=== PATIENT | male | born 1940 | race Caucasian/White ===

== ENCOUNTER 2020-03-10 01:29 | Outpatient (CLI) | payer OTHER, SELFPAY ==
[2020-03-10 18:12] LABS: SARS-CoV-2 RNA PCR Negative
== END 2020-03-10 01:30 | disposition home or self-care (01) ==
LOC: ANHCOVIDDT 01:31
PROVIDERS: PCP Internal Medicine; Visit Provider Internal Medicine Critical Care Medicine
DX: Z01.812 Encounter for preprocedural laboratory examination (principal); Z20.828 Contact with and (suspected) exposure to other viral communicable diseases
CPT/HCPCS: 87635; C9803; U0003

== ENCOUNTER 2020-03-12 08:14 | Outpatient (CLI) | payer OTHER, SELFPAY ==
--- NOTE | 2020-03-26 20:50 | SLEEP_ITS ---
CPAP TITRATION DATE OF STUDY: 03/12/2020 ORDERING PHYSICIAN: Beto Car MD. REASON FOR THIS STUDY: History of obstructive sleep apnea on CPAP, increased hemoglobin. HISTORY: This 79-year-old man is 72 inches tall, weighing 217 pounds with a body mass index of 29.4. Neck circumference is 17 inches. On February 23, 2018, he had a CPAP retitration. He has been using CPAP for many years without problems, started in 2008. In 2018, his hemoglobin was elevated. Dr. Carreon was concerned about polycythemia and wanted to assure that the CPAP was adequately treating his sleep apnea. During the titration, the patient was titrated from 7-9 cm of water pressure with the presence of central and obstructive apneas and hypopneas, arousals and desaturations. The sleep efficiency was very low 14%, a prolonged sleep latency of 60 minutes occurred, and there was absence of REM. On a prior study September 24, 2008, his AHI was 5.9 with mild desaturation, moderate snoring, and severe myoclonus, and optimal pressure was 7 cm. The patient is retired, and has had phlebotomy twice in the past due to elevated blood counts. Since starting CPAP years ago, he has not had any problem with snoring. He occasionally awakens at night with heartburn, belching, or coughing. He does not awaken from sleep feeling short of breath and does not snore since starting CPAP. He frequently snores loudly enough that others complain, but that was before CPAP was started. He rarely has trouble sleeping with a cold. He does not wake up gasping for breath at night, does not have breathing problems at night observed by others, does not sweat excessively at night, or notices heart pounding or beating irregularly at night. He does not fall asleep during the day, fall asleep involuntarily, or while driving. He does not have loss of muscle tone with strong emotion and does not have daytime difficulties due to excessive sleepiness. He does not feel paralyzed on waking or falling asleep. He does not have vivid dreamlike scenes upon awakening or falling asleep. He is never afraid to go to sleep. He occasionally has nightmares. He rarely remembers his dreams. He occasionally has racing thoughts. He rarely feels sad or depressed. He occasionally feels anxiety. He occasionally has muscular tension. He does not notice parts of his body jerking and he does not kick at night. He rarely has crawly achy feelings in his legs, but he does have some leg cramps at night. He occasionally has leg pain during the night. He does not have morning jaw pain and does not grind his teeth during sleep. He is not bothered by pain during the day and is not awakened by pain at night. He occasionally wakes up feeling stiff in the morning with sore achy muscles and pain in the neck and the spine. He has fatigue, memory problems, concentration difficulties, and constipation. Normal bedtime is 10:00 p.m., falling asleep within 1 hour, typically waking once at night for 15 minutes to go urinate. He wakes in the morning around 9:00 a.m. He estimates 8 hours of sleep during the night. He lives at home with his cat. His has Alzheimer's and is in a memory care unit. He does not take naps. A short nap is not refreshing. Most of the time, he feels good in the morning. He feels better in the afternoon than other times of day. MEDICAL COMORBIDITIES: 1. Obstructive sleep apnea. 2. Constipation. 3. Hypertension. 4. Polycythemia without a diagnosis of polycythemia vera. 5. Seasonal allergies. MEDICATIONS: 1. Tamsulosin 0.4 mg daily. 2. Losartan 50 mg a day. 3. Spironolactone 25 mg a day. 4. Atenolol 25 mg a day. HABITS: Remote tobacco use, 60 years ago. No caffeine or alcohol. DESCRIPTION OF
== END 2020-03-12 08:15 | disposition home or self-care (01) ==
PROVIDERS: PCP Internal Medicine; Visit Provider Internal Medicine Critical Care Medicine
DX: G47.33 Obstructive sleep apnea (adult) (pediatric) (principal)
CPT/HCPCS: 95811

== ENCOUNTER 2020-12-04 15:27 | Outpatient (CLI) | payer MEDICARE, SELFPAY ==
--- NOTE | ~2020-12-04 | XR_ITS ---
EXAMINATION: XR lumbar spine 2-3V EXAM DATE: 12/04/2020 16:01 INDICATION: M54.9 - Dorsalgia, feels the weakness throughout lower back and sometimes going into thor acic spine. TECHNIQUE: Lumber spine frontal, lateral, lateral L5-S1 projections for interpretation. There is no prior study for comparison. FINDINGS: Moderate disc disease L5-S1, mild to moderate L3-4 and L4-5. There is moderate to severe f acet arthropathy L4-5 and L5-S1. Moderate sized bridging endplate osteophytes L3-4 and L4-5. The vert ebral bodies are aligned in the AP dimension. There are no acute fractures identified. Paraspinal sof t tissue is unremarkable. Mild lumbar scoliosis. Sacrum, sacroiliac joints, sacral arcuate lines are intact. IMPRESSION: Lower lumbar predominant spondylosis. Reviewed, dictated and finalized at location A.
== END 2020-12-04 15:28 | disposition home or self-care (01) ==
LOC: ANHIMG 15:29
PROVIDERS: PCP Internal Medicine; Visit Provider Internal Medicine
DX: M47.817 Spondylosis without myelopathy or radiculopathy, lumbosacral region (principal); M41.9 Scoliosis, unspecified
CPT/HCPCS: 72100

== ENCOUNTER 2021-02-10 10:14 | Outpatient (CLI) | payer MEDICARE, SELFPAY ==
--- NOTE | ~2021-02-10 | MR_ITS ---
EXAMINATION: MR lumbar spine wo con DATE: 02/10/2021 11:09 INDICATION: Radiculopathy, lumbar region. TECHNIQUE: Magnetic resonance imaging (MRI) of the lumbar spine was performed without intravenous con trast. Sequences included sagittal T2-weighted FSE, sagittal T2-weighted FS FSE, sagittal T1-weighted FSE, and axial T2-weighted FSE. COMPARISON: Lumbar spine radiographs 12/04/2020 FINDINGS: There is 10 degrees levoscoliosis of lumbar spine. There is a chronic left L5 pars defects. There is mild chronic anterior wedging of T11-L1 vertebral bodies. There is moderately decreased dis c height at L3-L4 and L4-L5 and severely decreased disc height at L5-S1 with endplate remodeling. The distal spinal cord signal intensity is normal. The conus medullaris is at L1. The following disc lev els are specifically discussed: L1-L2: The disc is bulging and has an annular fissure. There is mild right and moderate left facet evelyn int osteoarthritis. There is mild bilateral neural foraminal stenosis. There is mild central canal st enosis. L2-L3: The disc is bulging. There is severe bilateral facet joint osteoarthritis. There is mild bilat eral neural foraminal stenosis. There is mild central canal stenosis. L3-L4: The disc is bulging and has an annular fissure. There is moderate right and mild left facet evelyn int osteoarthritis. There is moderate bilateral neural foraminal stenosis. There is mild central laila l stenosis. L4-L5: The disc is bulging and has an annular fissure. There is severe bilateral facet joint osteoart hritis. There is moderate bilateral neural foraminal stenosis. There is mild central canal stenosis. There is severe stenosis of right lateral recess and mild stenosis of left lateral recess. L5-S1: The disc is bulging. There is severe bilateral facet joint osteoarthritis. There is mild bilat eral neural foraminal stenosis. There is mild central canal stenosis. IMPRESSION: 1. Severe lumbar spondylosis. 2. Chronic left L5 pars defect. Reviewed, dictated and finalized at location A.
== END 2021-02-10 10:15 | disposition home or self-care (01) ==
PROVIDERS: PCP Internal Medicine; Visit Provider Internal Medicine
DX: M54.16 Radiculopathy, lumbar region (principal); M54.9 Dorsalgia, unspecified; M47.816 Spondylosis without myelopathy or radiculopathy, lumbar region; M53.86 Other specified dorsopathies, lumbar region
CPT/HCPCS: 72148

== ENCOUNTER 2021-11-04 21:08 | Emergency (ER) | payer MEDICARE, SELFPAY ==
[2021-11-04 21:23] VITALS: BP 154/79; PULSE 54; RESP 18; TEMP 36.4; O2SAT 98
== END 2021-11-05 01:10 | disposition left against medical advice (07) ==
PROVIDERS: PCP Internal Medicine
DX: I10 Essential (primary) hypertension (principal)
CPT/HCPCS: 99199

== ENCOUNTER 2021-11-25 10:05 | Observation (INO) | payer MEDICARE, SELFPAY ==
[2021-11-25] VITALS (9 sets, daily range): BP systolic 114–151; BP diastolic 63–77; PULSE 62–76; RESP 16–20; TEMP 36.2–37; O2SAT 96–99; BMI 26.9
--- NOTE | ~2021-11-25 | XR_ITS ---
EXAMINATION: XR abdomen/kub 1V INDICATION: Back and abdominal pain TECHNIQUE: Supine views of the abdomen were obtained on 4 radiographs. COMPARISON: None FINDINGS: There is a moderately dilated loop of large bowel in the right mid abdomen. Gas is seen to the level of the rectum. The visualized lung bases are clear. There is mild osteoarthritis of the hip s. IMPRESSION: 1. Moderately dilated segment of large bowel in the right mid abdomen unclear etiology. Consider foll ow-up CT of the abdomen and pelvis. Reviewed, dictated and finalized at location A. IMPRESSION: 1. Moderately dilated segment of large bowel in the right mid abdomen unclear e tiology. Consider follow-up CT of the abdomen and pelvis.
--- NOTE | ~2021-11-25 | US_ITS ---
EXAMINATION: US retroperitoneal duplex ltd DATE: 11/26/2021 10:18 INDICATION: Hypertension. TECHNIQUE: Multiple grayscale, color Doppler, and pulsed Doppler images of the kidneys and renal lisa iván were obtained. COMPARISON: None. FINDINGS: The aorta peak systolic velocity is 99 cm/s. The right renal artery peak systolic velocity is 177 cm/ s in the proximal segment, 101 cm/s in the mid segment, and 59 cm/s in the distal segment. The left r enal artery peak systolic velocity is 135 cm/s in the proximal segment, 130 cm/s in the mid segment, and 77 cm/s in the distal segment. IMPRESSION: 1. No Doppler evidence of renal artery stenosis. Reviewed, dictated and finalized at location A.
--- NOTE | ~2021-11-25 | US_ITS ---
EXAMINATION: US renal BI DATE: 11/26/2021 10:18 INDICATION: Acute kidney injury. TECHNIQUE: Multiple ultrasound grayscale images of the kidneys were obtained. COMPARISON: Lumbar spine MRI 02/10/2021, ultrasound kidneys 05/02/2019 FINDINGS: The right kidney measures 11.5 x 6.4 x 5.4 cm. The left kidney measures 13.6 x 6.6 x 6.1 cm. There is cortical thinning of the kidneys. The kidneys demonstrate normal parenchymal echogenicity. There are cysts in the kidneys measuring up to 4.3 cm on the left. There are peripelvic cysts in left kidney. There is no hydronephrosis. The bladder is decompressed by a Ivan catheter. IMPRESSION: 1. Mild atrophy of the kidneys. No hydronephrosis. Reviewed, dictated and finalized at location A.
--- NOTE | ~2021-11-25 | CT_ITS ---
EXAMINATION: CT abdomen pelvis w con DATE: 11/26/2021 13:22 INDICATION: Dilated bowel TECHNIQUE: Computed tomography (CT) of the abdomen and pelvis was performed with 100 mL Omnipaque-300 intravenous contrast. Automated exposure control and iterative reconstruction technique were employe d. The dose-length product was 849.92 mGy-cm. COMPARISON: None FINDINGS: Minimal left pleural effusion. Mild dependent atelectasis in the bilateral lower lobes. Heart size is normal. No pericardial effusion. Small sliding-type hiatal hernia. A couple low-attenuation hepatic cysts the largest in the left hepatic lobe measuring 1.8 cm. Gallbladder, pancreas and bilateral adre nal glands are normal. Splenomegaly measuring 15 cm in maximal length. Moderate right renal atrophy w ith scattered severe cortical scarring likely sequela of chronic infection or infarction. Mild left r enal atrophy. Bilateral parenchymal and parapelvic cysts at both kidneys the largest a 4.8 cm exophyt ic cyst at the mid left kidney. There is moderate no dilated bowel to suggest obstruction. colonic di verticulosis with a sigmoid predominance. There is no adjacent inflammatory change to suggest divert iculitis. Prostatomegaly measuring 6.1 x 5.2 cm. Ivan catheter and some intraluminal gas within the decompressed bladder. Mild stranding in the fat surrounding the bladder which could be seen with cyst itis. No free intraperitoneal gas or fluid. No pathologically enlarged abdominal or pelvic lymphadeno anderson. Mild lumbar levocurvature with moderate to severe spondylosis. IMPRESSION: 1. Moderate diverticulosis. 2. Stranding in the fat surrounding the bladder which could be seen with cystitis. Correlate with uri nalysis. 3. Prostatomegaly. 4. Very small left pleural effusion. 5. Nonspecific splenomegaly. 6. Small sliding-type hiatal hernia. 7. Mild left and moderate right renal atrophy. Reviewed, dictated and finalized at location B. IMPRESSION: 1. Moderate diverticulosis. 2. Stranding in the fat surrounding the bladder which could be seen with cystit is. Correlate with urinalysis. 3. Prostatomegaly. 4. Very small left pleural effusion. 5. Nonspecific splenomegaly. 6. Small sliding-type hiatal hernia. 7. Mild left and moderate right renal atrophy.
--- NOTE | 2021-11-25 10:19 | ED.MALEGU ---
HPI - Male Genitourinary General Chief complaint: Urogenital-Male <Miguel Shaffer APRN - Last Filed: 11/25/21 14:07> Stated complaint: urinary retention x 1.5 days <Miguel Shaffer APRN - Last Filed: 11/25/21 14:07> Time Seen by Provider: 11/25/21 10:07 <Miguel Shaffer APRN - Last Filed: 11/25/21 14:07> History of Present Illness HPI Narrative: 81-year-old male presents the emergency room for evaluation of urinary retention for the last day and a half. Patient states 2 days ago he was complaining of dysuria, the alf staff stated that he had a urinary tract infection. Patient states that he was not started on antibiotics at that time, urinary retention. Patient is complaining of lower abdominal pain. Patient denies back pain denies fevers. <Miguel Shaffer APRN - Last Filed: 11/25/21 14:07> Related Data Home medications: Home Medications Medication Instructions Recorded Confirmed cholecalciferol (vitamin D3) 50 50 mcg PO DAILY 05/23/20 11/11/21 mcg (2,000 unit) capsule multivit-mins [id number] 200 mcg-vit tablet PO 05/23/20 11/11/21 K 1,000 mcg-coQ10 10 mg chew tablet zinc 50 mg tablet 50 mg PO DAILY 05/23/20 11/11/21 mecobalamin (vitamin B12) 1,000 1,000 mcg PO DAILY 12/24/20 11/11/21 mcg chewable tablet dietary supplement cap PO 03/10/21 11/11/21 triamcinolone acetonide 0.1 % 1 applic topical BID PRN 06/30/21 11/11/21 topical cream atenolol 25 mg tablet 25 mg PO DAILY 11/25/21 11/25/21 <Miguel Shaffer APRN - Last Filed: 11/25/21 14:07> Allergies/Adverse reactions: Allergies Allergy/AdvReac Type Severity Reaction Status Date / Time amlodipine Allergy Intermediate HIVES, Verified 11/25/21 13:57 ITCHING hydrochlorothiazide Allergy Unknown RASH & Verified 11/25/21 13:57 ITCHING valsartan Allergy Unknown Hives Verified 11/25/21 13:57 <Miguel Shaffer APRN - Last Filed: 11/25/21 14:07> Review of Systems Review of Systems: CONSTITUTIONAL: Denies fever, chills, or sweats. EYES: Denies visual changes, redness, or discharge. ENT: Denies rhinorrhea, congestion, sore throat, or otalgia. CARDIOVASCULAR: Denies chest pain, palpitations, or edema. RESPIRATORY: Denies cough or dyspnea. GASTROINTESTINAL: Denies abdominal pain, nausea, vomiting, or diarrhea. GENITOURINARY: Reports urinary retention SKIN: Denies rash or itching. MUSCULOSKELETAL: Denies back pain, joint pain, or myalgia. NEUROLOGIC: Denies headache, numbness, dizziness, or weakness. PSYCHIATRIC: Denies anxiety or depression. <Miguel Shaffer APRN - Last Filed: 11/25/21 14:07> PMFSH Past Medical History Medical History: Medical History Constipation Essential hypertension Neuropathy Obstructive sleep apnea <Miguel Shaffer APRN - Last Filed: 11/25/21 14:07> Family History Family History: Family History Father Hypertension, Onset Age: 88 <Miguel Shaffer APRN - Last Filed: 11/25/21 14:07> Social History Social History: Social History Smoking packs per day: 0.5 Smoking cigarettes per day: 10.0 Years smoked: 2 Smoking pack-years: 1.00 Smoking status: Former smoker Tobacco type: cigarettes Second hand tobacco smoke exposure: No Smoking end date: 06/06/1960 Alcohol intake: former Drinks per week: 1 Substance use: never Substance use type: does not use Gender identity (if verbalized by the patient): Male Spiritual care concerns: No <Miguel Shaffer APRN - Last Filed: 11/25/21 14:07> Exam Narrative: GENERAL: Well-appearing, well-nourished, and in no acute distress. HEAD: Normocephalic, atraumatic. EYES: PERRLA and EOMI. ENT: Nares clear, no rhinorrhea or epistaxis. Mucous membranes moist. Oropharynx without tonsillar hypertrophy exudate or other lesions.
[2021-11-25 10:39] LABS: Basophils Absolute Auto 0.1 K/mm3 (0.0-0.1); Basophils Percent Auto 0.3 % (0.2-1.2); Eosinophils Percent Auto 0.2 % (0-4.4); Hematocrit 43.7 % (42.0-52.0); Hemoglobin 14.6 g/dL (14.0-18.0); Immature Granulocyte Absolute 0.08 K/mm3 (0.00-0.031); Immature Granulocyte Percent A 0.5 % (0-0.5); Immature Platelet Fraction Pct 3.9 % (0.9-11.2); Lymphocytes Absolute Auto 0.96 K/mm3 (0.9-3.2); Lymphocytes Percent Auto 6.5 % (18.3-44.2); Mean Corpuscular HGB Conc 33.4 g/dl (32-36); Mean Corpuscular Hemoglobin 30.3 pg (26-34); Mean Corpuscular Volume 90.7 fl (80-100); Mean Platelet Volume 10.3 fl (7.4-10.4); Monocytes Absolute Auto 1.4 K/mm3 (0.1-0.6); Monocytes Percent Auto 9.3 % (2.6-8.5); Neutrophils Absolute Auto 12.4 K/mm3 (1.3-6.7); Neutrophils Percent Auto 83.2 % (45.5-73.1); Platelet Count Result 129 k/mm3 (150-375); Red Blood Count 4.82 M/mm3 (4.6-6.20); Red Cell Distribution Width 13.4 % (11.5-14.5); White Blood Count 14.9 K/mm3 (4.5-10.0)
[2021-11-25 10:45] LABS: Alanine Aminotransferase 10 U/L (6-50); Albumin Level 3.5 g/dL (3.5-5.1); Alkaline Phosphatase 79 U/L (38-126); Anion Gap 6 mmol/L (8-16); Aspartate Amino Transferase 16 U/L (17-59); Bilirubin,Total 1.3 mg/dL (0.2-1.3); Blood Urea Nitrogen 27 mg/dL (9-20); Calcium 8.1 mg/dL (8.4-10.2); Carbon Dioxide 22 mmol/L (22-30); Chloride 106 mmol/L (98-107); Estimated CRCL calculation 23 ml/min; Estimated Glomerular Filt Rate 24; Glucose 110 mg/dL (65-110); Potassium 4.2 mmol/L (3.4-5.0); Sodium 134 mmol/L (137-145)
[2021-11-25 10:55] LABS: Appearance Urine Clear (Clear); Bilirubin Urine Negative (Negative); Color Urine Yellow (Yellow); Glucose Urine UA Negative (Negative); Ketones Urine Negative (Negative); Leukocyte Esterase Ur 1+ LEU/UL (Negative); Nitrate Urine Positive (Negative); Protein Urine Negative (Negative); Urobilinogen Urine 0.2 mg/dL (<2.0); pH Urine 5.5 (5.0-9.0)
[2021-11-25 11:00] LABS: Add Urine Microscopic? YES; Bacteria Urine Trace /hpf; Blood Urine Trace-Intact (Negative); Mucus Urine Rare /lpf; RBC Urine 0-2 /hpf (0-2); Squamous Epithelial Cell Urine Rare /hpf (Few); WBC Urine 21-30 /hpf
[2021-11-25] MEDS: SODIUM CHLORIDE 0.9% IV 1,000 ML 500 ML IV CONT (11:10)
[2021-11-25 11:17] LABS: Lactic Acid Reflex 1.2 mmol/L (0.7-2.0)
[2021-11-25 11:26] LABS: Prostate Specific Antigen 12.2 ng/mL (< OR = 4.0)
--- NOTE | 2021-11-25 13:32 | PC.NURSE ---
This patient, Crow Smith III, was admitted to 2 Medical Room 260-01. Patient/family oriented to hospital policies and general routines including ID bracelet, bed and alarms, visiting hours, pain management, procedures, bathroom and other care routines, personal items, smoking policy, room service/diet, and visiting hours. Information on how to activate the Rapid Response Team has been discussed. Patient/Family are encouraged to report perceived risks to care and to ask questions if they do not understand what they are told or what they should do.
[2021-11-25] MEDS: SODIUM CHLORIDE 0.9% IV 1,000 ML 125 ML IV CONT ×2 (13:53→23:12)
--- NOTE | 2021-11-25 15:25 | PM.IMHP ---
H&P: HPI History of Present Illness Date/Time: 11/25/21 15:25 Chief Complaint: Urinary retention, hypertension Narrative: Patient is a 81-year-old male with past medical history of neuropathy, CLAUDIO, hypertension, who stated that he has been dealing with hypertension and blood pressure for 2-3 weeks however has now experienced urinary retention. Patient stated that he has not got much sleep due to the fact that he is been up over 15 minutes with the urge to urinate however nothing happens. He denies any pain or burning upon urination but states that he sits there and he cannot get any urine to come out. He also stated that has been noticing his blood pressure has been climbing and has been well over 140 systolic coli for the last 3 weeks. He did go to his doctor who stated that they should continue to watch it because he is not that over from normal however he stated for readings were below 140/30. His stated that he has noticed he has been fatigued with a loss of appetite. He does feel better now that he has a urinary catheter and stated that he did get nauseous with the breakfast area his pain is in the lower and middle back status of dull pain he we done ahead enough to or any medications just causes him to be change his gait. He denies any chest pain, shortness of breath, vomiting, diarrhea, constipation headache sweats, fevers, chills, diarrhea, constipation, headaches, visual changes. Currently has a urinary catheter draining clear yellow urine. Patient is being admitted to our service in observation status Review of Systems Review of Systems: All systems reviewed & are unremarkable except as noted in HPI and below PMFSH Past Medical History Medical History (Updated 11/25/21 @ 15:34 by HUGO Lee) Essential hypertension Neuropathy Obstructive sleep apnea Family History Family History Father Hypertension, Onset Age: 88 Social History Social History (Updated 11/25/21 @ 15:36 by HUGO Lee) Social History: Patient lives at a brightly half-way and is retired [employer] who still down pills little and finances. He currently rates a 2 bedroom to bathroom apartment. His a few years back. Patient wishes to be DNR and his POA is Miguel Boggs who lives in [place]. Smoking packs per day: 0.5 Smoking cigarettes per day: 10.0 Years smoked: 2 Smoking pack-years: 1.00 Smoking status: Former smoker Tobacco type: cigarettes Second hand tobacco smoke exposure: No Smoking end date: 06/06/1960 Alcohol intake: current Drinks per week: 1 Alcohol use details: a glass a wine Substance use: never Substance use type: does not use Living arrangements: assisted living Occupation/Education: retired Additional occupation/education comments: [employer] Gender identity (if verbalized by the patient): Male Spiritual care concerns: No Agree to blood products: Yes Meds Home Medications and Allergies Home Medications Medication Instructions Recorded Confirmed Type cholecalciferol (vitamin D3) 50 50 mcg PO DAILY 05/23/20 11/25/21 History mcg (2,000 unit) capsule zinc 50 mg tablet 50 mg PO DAILY 05/23/20 11/25/21 History dietary supplement See Rx Instructions .Route .COMPLEX 03/10/21 11/25/21 History tamsulosin 0.4 mg capsule See Rx Instructions .Route 05/04/21 11/25/21 Rx .COMPLEX #90 caps clonidine HCl 0.1 mg tablet 0.1 mg PO DAILY PRN hypertensive 06/09/21 11/25/21 Rx emergency 90 days #90 tabs losartan 100 mg tablet 100 mg PO DAILY #90 tabs 09/07/21 11/25/21 Rx spironolactone 25 mg tablet 25 mg PO .COMPLEX #90 tabs 11/11/21 11/25/21 Rx atenolol 25 mg tablet 25 mg PO DAILY 11/25/21 11/25/21 History Allergies Allergy/AdvReac Type Severity Reaction Status Date / Time amlodipine Allergy Intermediate HIVES, Verified 11/25/21 13:57 ITCHING hydrochlorothiazide Allergy Unknown RASH &
[2021-11-25 16:29] LABS: Basophils Absolute Auto 0.1 K/mm3 (0.0-0.1); Basophils Percent Auto 0.7 % (0.2-1.2); Eosinophils Absolute Auto 0.1 K/mm3 (0-0.3); Eosinophils Percent Auto 0.6 % (0-4.4); Hematocrit 45.3 % (42.0-52.0); Immature Granulocyte Absolute 0.08 K/mm3 (0.00-0.031); Immature Granulocyte Percent A 0.5 % (0-0.5); Lymphocytes Absolute Auto 1.38 K/mm3 (0.9-3.2); Mean Corpuscular HGB Conc 33.1 g/dl (32-36); Mean Corpuscular Volume 93.6 fl (80-100); Mean Platelet Volume 10.2 fl (7.4-10.4); Monocytes Absolute Auto 1.4 K/mm3 (0.1-0.6); Monocytes Percent Auto 8.8 % (2.6-8.5); Neutrophils Absolute Auto 12.3 K/mm3 (1.3-6.7); Neutrophils Percent Auto 80.4 % (45.5-73.1); Platelet Count Result 108 k/mm3 (150-375); Red Blood Count 4.84 M/mm3 (4.6-6.20); Red Cell Distribution Width 13.2 % (11.5-14.5); White Blood Count 15.3 K/mm3 (4.5-10.0)
[2021-11-25 16:53] LABS: Platelet Estimate Decreased (Adequate)
[2021-11-25] MEDS: HYDROcodone/acetaminophen (*CRX) 5-325 MG TABLET 1 TAB PO (23:18)
[2021-11-26 06:35] LABS: Alanine Aminotransferase 7 U/L (6-50); Albumin Level 2.7 g/dL (3.5-5.1); Alkaline Phosphatase 62 U/L (38-126); Anion Gap 3 mmol/L (8-16); Aspartate Amino Transferase 15 U/L (17-59); Bilirubin,Total 0.9 mg/dL (0.2-1.3); Blood Urea Nitrogen 17 mg/dL (9-20); Calcium 7.4 mg/dL (8.4-10.2); Carbon Dioxide 23 mmol/L (22-30); Chloride 111 mmol/L (98-107); Estimated CRCL calculation 53 ml/min; Estimated Glomerular Filt Rate > 60; Glucose 93 mg/dL (65-110); Sodium 137 mmol/L (137-145)
--- NOTE | 2021-11-26 07:09 | WPDURCON ---
Assessment and Plan Assessment and plan (1) Urinary retention due to benign prostatic hyperplasia: Code(s): N40.1 - Benign prostatic hyperplasia with lower urinary tract symptoms; R33.8 - Other retention of urine Status: Acute Assessment and Plan: Patient appears to have slowly progressive BPH leading to urinary retention. Incomplete emptying is the likely cause for his urinary tract infection. I would recommend continuing tamsulosin again adding finasteride. I have explained to him that it is probably best to be discharged with an indwelling catheter with a plan for a voiding trial in 7-10 days. Urology Consult Note HPI Date Seen: 11/26/21 Requesting Physician: Kelly Bran MD Primary Care Provider: Jeremy Carreon MD Consult Narrative Narrative: Crow Smith III is a 81 year old male, unknown to our practice, but with longstanding history of BPH. He reports having been on tamsulosin for years and only just recently started the nose increased frequency of urination with a sense of incomplete emptying. Ultimately, he presents to the ER with marked increased urinary frequency over the prior several days. He was catheterized without difficulty with a residual volume of over 900 cc and his urinalysis appears infected. Denies a prior history of recurrent urinary tract infections or hematuria. Review of Systems Cardiovascular: Cardiovascular: Denies chest pain, Denies lightheadedness, Denies palpitations and Denies dyspnea Respiratory: Respiratory: Denies dyspnea Gastrointestinal: Gastrointestinal: Denies diarrhea, Denies nausea and Denies vomiting Genitourinary: Genitourinary: Denies hematuria and Denies dysuria Endocrine: Endocrine: Denies palpitations [facility] Past Medical History Medical History (Updated 11/26/21 @ 07:11 by Yang Graves MD) Essential hypertension Neuropathy Obstructive sleep apnea Family History Family History Father Hypertension, Onset Age: 88 Social History Social History (Updated 11/25/21 @ 15:36 by HUGO Lee) Social History: Patient lives at a [facility] halfway and is retired [employer] who still down pills little and finances. He currently rates a 2 bedroom to bathroom apartment. His a few years back. Patient wishes to be DNR and his POA is Miguel Boggs who lives in [place]. Smoking packs per day: 0.5 Smoking cigarettes per day: 10.0 Years smoked: 2 Smoking pack-years: 1.00 Smoking status: Former smoker Tobacco type: cigarettes Second hand tobacco smoke exposure: No Smoking end date: 06/06/1960 Alcohol intake: current Drinks per week: 1 Alcohol use details: a glass a wine Substance use: never Substance use type: does not use Living arrangements: assisted living Occupation/Education: retired Additional occupation/education comments: [employer] Gender identity (if verbalized by the patient): Male Spiritual care concerns: No Agree to blood products: Yes Meds Home Medications and Allergies Home Medications Medication Instructions Recorded Confirmed Type cholecalciferol (vitamin D3) 50 50 mcg PO DAILY 05/23/20 11/25/21 History mcg (2,000 unit) capsule zinc 50 mg tablet 50 mg PO DAILY 05/23/20 11/25/21 History dietary supplement See Rx Instructions .Route .COMPLEX 03/10/21 11/25/21 History tamsulosin 0.4 mg capsule See Rx Instructions .Route 05/04/21 11/25/21 Rx .COMPLEX #90 caps clonidine HCl 0.1 mg tablet 0.1 mg PO DAILY PRN hypertensive 06/09/21 11/25/21 Rx emergency 90 days #90 tabs losartan 100 mg tablet 100 mg PO DAILY #90 tabs 09/07/21 11/25/21 Rx spironolactone 25 mg tablet 25 mg PO .COMPLEX #90 tabs 11/11/21 11/25/21 Rx atenolol 25 mg tablet 25 mg PO DAILY 11/25/21 11/25/21 History Allergies Allergy/AdvReac Type Severity Reaction Status Date / Time amlodipine Allergy Intermediate Altagracia ROTHMANi
[2021-11-26 07:19] VITALS: BP 136/68; PULSE 66; RESP 16; TEMP 36.6; O2SAT 94
[2021-11-26] MEDS: SODIUM CHLORIDE 0.9% IV 1,000 ML 125 ML IV CONT (07:30)
[2021-11-26 08:00] VITALS: BP 136/56; PULSE 58; RESP 16; TEMP 36.9; O2SAT 97
[2021-11-26 08:04] LABS: Basophils Absolute Auto 0.1 K/mm3 (0.0-0.1); Basophils Percent Auto 0.6 % (0.2-1.2); Eosinophils Absolute Auto 0.2 K/mm3 (0-0.3); Eosinophils Percent Auto 1.3 % (0-4.4); Hematocrit 40.4 % (42.0-52.0); Hemoglobin 13.4 g/dL (14.0-18.0); Immature Granulocyte Absolute 0.07 K/mm3 (0.00-0.031); Immature Granulocyte Percent A 0.6 % (0-0.5); Lymphocytes Absolute Auto 1.28 K/mm3 (0.9-3.2); Lymphocytes Percent Auto 10.1 % (18.3-44.2); Mean Corpuscular HGB Conc 33.2 g/dl (32-36); Mean Corpuscular Hemoglobin 30.4 pg (26-34); Mean Corpuscular Volume 91.6 fl (80-100); Mean Platelet Volume 11.1 fl (7.4-10.4); Monocytes Absolute Auto 1.2 K/mm3 (0.1-0.6); Monocytes Percent Auto 9.8 % (2.6-8.5); Neutrophils Absolute Auto 9.8 K/mm3 (1.3-6.7); Neutrophils Percent Auto 77.6 % (45.5-73.1); Platelet Count Result 109 k/mm3 (150-375); Red Blood Count 4.41 M/mm3 (4.6-6.20); Red Cell Distribution Width 13.2 % (11.5-14.5); White Blood Count 12.6 K/mm3 (4.5-10.0)
[2021-11-26] MEDS: CHOLECALCIFEROL 1,000 UNITS TABLET 2000 UNITS PO (08:17)
[2021-11-26] MEDS: ENOXAPARIN 30 MG/0.3 ML SYRINGE SUB-Q (08:18)
[2021-11-26] MEDS: DOCUSATE SODIUM 100 MG CAPSULE PO ×2 (08:18→16:16)
[2021-11-26] MEDS: FINASTERIDE 5 MG TABLET PO (08:26)
[2021-11-26] MEDS: LOSARTAN POTASSIUM 100 MG TABLET PO (08:28)
[2021-11-26] MEDS: GABAPENTIN 100 MG CAPSULE PO ×2 (08:28→16:16)
[2021-11-26] MEDS: TAMSULOSIN HCL 0.4 MG CAPSULE PO (08:29)
[2021-11-26] MEDS: ZINC SULFATE 220 MG CAPSULE PO (08:31)
--- NOTE | 2021-11-26 09:00 | P.PNIM_ITS ---
Progress Note: A&P Assessment and Plan (1) ROBERT (acute kidney injury): Code(s): N17.9 - Acute kidney failure, unspecified Status: Acute Assessment and Plan: * BUN and creatinine of 17/1.10 upon admission * Seems to be corrected as lab values are in the baseline range * Baseline appears to be 1 to 1.2 * Continue to trend labs * Avoid nephrotoxic medications * Probably related to urinary obstruction or retention * KUB and renal ultrasound pending * Consider nephrology consult * Urine culture pending (2) Neuropathy: Code(s): G62.9 - Polyneuropathy, unspecified Status: Acute Assessment and Plan: * Patient reports numbness and states that he is walking on the bricks * Start patient on gabapentin 100 mg t.i.d. * PT and OT * Increase gabapentin upon symptomatology (3) Abnormal urinalysis: Code(s): R82.90 - Unspecified abnormal findings in urine Status: Acute Assessment and Plan: * UA looks infective with positive nitrates, 1+ leukocyte esterase, wbc's 21-30 with trace bacteria * Continue Rocephin from the ER * Urine culture pending * Adjust therapy to urine culture results * WBCs are * Trend labs (4) Urinary retention: Code(s): R33.9 - Retention of urine, unspecified Status: Acute Assessment and Plan: * Urinary retention noted by bladder scan with a post residual void over 900 * Urinary catheter installed * Trend urine output * Urology consult since the patient has a history of prostate cancer (5) BPH (benign prostatic hyperplasia): Code(s): N40.0 - Benign prostatic hyperplasia without lower urinary tract symptoms Status: Acute Assessment and Plan: * Patient does have a history of the PH and prostate cancer * Continue home tamsulosin, consider adding finasteride * Trend urinary output * Accurate I&Os * Continue urinary catheter at this time * Urology consult * PSA 12.2 (6) Essential hypertension: Code(s): I10 - Essential (primary) hypertension Status: Acute Assessment and Plan: * 151/68 currently * Continue home medications * probably from urinary retention * Trend BP * Adjust therapy as indicated Time Spent With Patient Time with patient: Greater than 35 minutes Subjective Date/time seen: 11/26/21899 Interval history: 11/26/21899 Patient stated he was feeling pretty weak any get up. PT and OT did work with him and did well. Patient was concerned about his medications and will restart due to patient's renal function getting better. Patient currently has a chest pain, shortness of breath, nausea, vomiting, diarrhea, constipation, weakness or fatigue. 11/25/21? 15:25 Patient is a 81-year-old male with past medical history of neuropathy, CLAUDIO, hypertension, who stated that he has been dealing with hypertension and blood pressure for 2-3 weeks however has now experienced urinary retention.? Patient stated that he has not got much sleep due to the fact that he is been up over 15 minutes with the urge to urinate however nothing happens.? He denies any pain or burning upon urination but states that he sits there and he cannot get any urine to come out.? He also stated that has been noticing his blood pressure has been climbing and has been well over 140 systolic coli for the last 3 weeks.? He did go to his doctor who stated that they should continue to watch it becaus
--- NOTE | 2021-11-26 09:00 | PM.IMPN ---
Progress Note: A&P Assessment and Plan (1) ROBERT (acute kidney injury): Code(s): N17.9 - Acute kidney failure, unspecified Status: Acute Assessment and Plan: BUN and creatinine of 17/1.10 upon admission Seems to be corrected as lab values are in the baseline range Baseline appears to be 1 to 1.2 Continue to trend labs Avoid nephrotoxic medications Probably related to urinary obstruction or retention KUB and renal ultrasound pending Consider nephrology consult Urine culture pending (2) Neuropathy: Code(s): G62.9 - Polyneuropathy, unspecified Status: Acute Assessment and Plan: Patient reports numbness and states that he is walking on the bricks Start patient on gabapentin 100 mg t.i.d. PT and OT Increase gabapentin upon symptomatology (3) Abnormal urinalysis: Code(s): R82.90 - Unspecified abnormal findings in urine Status: Acute Assessment and Plan: UA looks infective with positive nitrates, 1+ leukocyte esterase, wbc's 21-30 with trace bacteria Continue Rocephin from the ER Urine culture pending Adjust therapy to urine culture results WBCs are Trend labs (4) Urinary retention: Code(s): R33.9 - Retention of urine, unspecified Status: Acute Assessment and Plan: Urinary retention noted by bladder scan with a post residual void over 900 Urinary catheter installed Trend urine output Urology consult since the patient has a history of prostate cancer (5) BPH (benign prostatic hyperplasia): Code(s): N40.0 - Benign prostatic hyperplasia without lower urinary tract symptoms Status: Acute Assessment and Plan: Patient does have a history of the PH and prostate cancer Continue home tamsulosin, consider adding finasteride Trend urinary output Accurate I&Os Continue urinary catheter at this time Urology consult PSA 12.2 (6) Essential hypertension: Code(s): I10 - Essential (primary) hypertension Status: Acute Assessment and Plan: 151/68 currently Continue home medications probably from urinary retention Trend BP Adjust therapy as indicated Time Spent With Patient Time with patient: Greater than 35 minutes Subjective Date/time seen: 11/26/21899 Interval history: 11/26/21899 Patient stated he was feeling pretty weak any get up. PT and OT did work with him and did well. Patient was concerned about his medications and will restart due to patient's renal function getting better. Patient currently has a chest pain, shortness of breath, nausea, vomiting, diarrhea, constipation, weakness or fatigue. 11/25/21? 15:25 Patient is a 81-year-old male with past medical history of neuropathy, CLAUDIO, hypertension, who stated that he has been dealing with hypertension and blood pressure for 2-3 weeks however has now experienced urinary retention.? Patient stated that he has not got much sleep due to the fact that he is been up over 15 minutes with the urge to urinate however nothing happens.? He denies any pain or burning upon urination but states that he sits there and he cannot get any urine to come out.? He also stated that has been noticing his blood pressure has been climbing and has been well over 140 systolic coli for the last 3 weeks.? He did go to his doctor who stated that they should continue to watch it because he is not that over from normal however he stated for readings were below 140/30.? His stated that he has noticed he has been fatigued with a loss of appetite.? He does feel better now that he has a urinary catheter and stated that he did get nauseous with the breakfast area his pain is in the lower and middle back status of dull pain he we done ahead enough to or any medications just causes him to be change his gait.? He denies any chest pain, shortness of breath, vomiting, diarrhea, constipation headache sweats, fevers,
--- NOTE | 2021-11-26 13:19 | PCOTNOTE ---
Attempted to see pt. for occupational therapy evaluation. Pt. away from room for testing. Will follow.
[2021-11-26 16:00] VITALS: BP 133/58; PULSE 60; RESP 16; TEMP 36.9; O2SAT 98
[2021-11-26 16:16] VITALS: PULSE 62
[2021-11-26] MEDS: atenoloL 25 MG TABLET PO (16:16)
[2021-11-26 17:53] VITALS: O2SAT 97
[2021-11-26 22:53] VITALS: BP 152/60; PULSE 61; RESP 16; TEMP 37.2; O2SAT 95
--- NOTE | 2021-11-26 23:22 | PC.NURSE ---
Preliminary urine culture positive for coagulase negative staphylococcus, not S[place] [address]/26, no critical result was called to the floor. Lia Palmer notified at [id number] of positive culture.
[2021-11-27 05:12] LABS: Basophils Absolute Auto 0.1 K/mm3 (0.0-0.1); Basophils Percent Auto 0.9 % (0.2-1.2); Eosinophils Absolute Auto 0.3 K/mm3 (0-0.3); Eosinophils Percent Auto 2.8 % (0-4.4); Hematocrit 40.9 % (42.0-52.0); Hemoglobin 13.8 g/dL (14.0-18.0); Immature Granulocyte Absolute 0.04 K/mm3 (0.00-0.031); Immature Granulocyte Percent A 0.4 % (0-0.5); Immature Platelet Fraction Pct 4.3 % (0.9-11.2); Lymphocytes Absolute Auto 1.68 K/mm3 (0.9-3.2); Lymphocytes Percent Auto 15.7 % (18.3-44.2); Mean Corpuscular HGB Conc 33.7 g/dl (32-36); Mean Corpuscular Hemoglobin 30.3 pg (26-34); Mean Corpuscular Volume 89.7 fl (80-100); Mean Platelet Volume 10.6 fl (7.4-10.4); Monocytes Absolute Auto 0.9 K/mm3 (0.1-0.6); Monocytes Percent Auto 8.2 % (2.6-8.5); Neutrophils Absolute Auto 7.7 K/mm3 (1.3-6.7); Platelet Count Result 125 k/mm3 (150-375); Red Blood Count 4.56 M/mm3 (4.6-6.20); White Blood Count 10.7 K/mm3 (4.5-10.0)
[2021-11-27 05:20] LABS: Alanine Aminotransferase 7 U/L (6-50); Albumin Level 2.9 g/dL (3.5-5.1); Alkaline Phosphatase 69 U/L (38-126); Anion Gap 2 mmol/L (8-16); Aspartate Amino Transferase 20 U/L (17-59); Bilirubin,Total 0.8 mg/dL (0.2-1.3); Blood Urea Nitrogen 15 mg/dL (9-20); Calcium 7.9 mg/dL (8.4-10.2); Carbon Dioxide 24 mmol/L (22-30); Chloride 109 mmol/L (98-107); Estimated CRCL calculation 58 ml/min; Estimated Glomerular Filt Rate > 60; Glucose 90 mg/dL (65-110); Potassium 4.2 mmol/L (3.4-5.0); Sodium 135 mmol/L (137-145)
[2021-11-27 06:07] VITALS: BP 147/69; PULSE 60; RESP 14; TEMP 37; O2SAT 94
[2021-11-27] MEDS: ENOXAPARIN 30 MG/0.3 ML SYRINGE SUB-Q (08:38)
[2021-11-27] MEDS: DOCUSATE SODIUM 100 MG CAPSULE PO (08:38)
[2021-11-27] MEDS: ZINC SULFATE 220 MG CAPSULE PO (08:39)
[2021-11-27] MEDS: FINASTERIDE 5 MG TABLET PO (08:39)
[2021-11-27] MEDS: GABAPENTIN 100 MG CAPSULE PO ×2 (08:39→13:02)
[2021-11-27] MEDS: SPIRONOLACTONE 25 MG TABLET PO (08:39)
[2021-11-27] MEDS: TAMSULOSIN HCL 0.4 MG CAPSULE PO (08:39)
[2021-11-27] MEDS: LOSARTAN POTASSIUM 100 MG TABLET PO (08:40)
[2021-11-27 08:42] VITALS: BP 144/80; PULSE 60; O2SAT 95
[2021-11-27 08:45] VITALS: O2SAT 97
--- NOTE | 2021-11-27 10:00 | P.DS_ITS ---
DS: Admitting Diagnosis Discharge Date 11/27/21 1000 Admitting Diagnosis UTI/Urinary retention DS: Discharge Diagnosis Discharge Diagnosis (1) ROBERT (acute kidney injury): Code(s): N17.9 - Acute kidney failure, unspecified Status: Acute Assessment and Plan: * BUN and creatinine of 15/1.00 upon admission * Seems to be corrected as lab values are in the baseline range * Baseline appears to be 1 to 1.2 * Continue to trend labs * Avoid nephrotoxic medications * Probably related to urinary obstruction or retention * KUB no renal stones * renal ultrasound no hydronephrosis * Consider nephrology consult * Urine culture coag neg staph (2) Neuropathy: Code(s): G62.9 - Polyneuropathy, unspecified Status: Acute Assessment and Plan: * Patient reports numbness and states that he is walking on the bricks * Start patient on gabapentin 100 mg t.i.d. * PT and OT * Increase gabapentin upon symptomatology (3) Abnormal urinalysis: Code(s): R82.90 - Unspecified abnormal findings in urine Status: Acute Assessment and Plan: * UA looks infective with positive nitrates, 1+ leukocyte esterase, wbc's 21-30 with trace bacteria * Continue Rocephin from the ER * Urine culture coag neg staph * Adjust therapy to urine culture results * WBCs are * Trend labs (4) Urinary retention: Code(s): R33.9 - Retention of urine, unspecified Status: Acute Assessment and Plan: * Urinary retention noted by bladder scan with a post residual void over 900 * Urinary catheter installed * Trend urine output * Urology consult since the patient has a history of prostate cancer * Will need 1 week follow up with urology (5) BPH (benign prostatic hyperplasia): Code(s): N40.0 - Benign prostatic hyperplasia without lower urinary tract symptoms Status: Acute Assessment and Plan: * Patient does have a history of the PH and prostate cancer * Continue home tamsulosin, consider adding finasteride * Trend urinary output * Accurate I&Os * Continue urinary catheter at this time * Urology consult * PSA 12.2 (6) Essential hypertension: Code(s): I10 - Essential (primary) hypertension Status: Acute Assessment and Plan: * 147/69 currently * Continue home medications * probably from urinary retention * Trend BP * Adjust therapy as indicated DS: Summary Hospital Course Hospital Course: Patient is a 81 year old male with a past medical history of HTN, BPH, and CLAUDIO who presented to the ED with complaints of urinary retention and persistent hypertension. Urinary catheter was placed, and urine output has been trended. Urine culture was obtained and did come back with vaibhav davis. Patient was initially started on ceftriaxone. WBC have been trending down and are currently at 10.7. Upon arrival patient was noted to have acute renal failure with an elevated BUN/Cr. Fluids were initiated and continued and the BUN/Cr have significantly reduced and are back to base line. Urology was consulted. Urinary catheter will need to continue and follow up in a week for voiding trial. Currently patient is stable and is ready for DC. Antibiotics have been adjusted. Patient denies any chest pain, shortness of breath, nausea, vomiting, diarrhea, or constipation. Status at Discharge Functional status at discharge: independent ambulation Overall
--- NOTE | 2021-11-27 10:00 | PM.DS ---
DS: Admitting Diagnosis Discharge Date 11/27/21 1000 Admitting Diagnosis UTI/Urinary retention DS: Discharge Diagnosis Discharge Diagnosis (1) ROBERT (acute kidney injury): Code(s): N17.9 - Acute kidney failure, unspecified Status: Acute Assessment and Plan: BUN and creatinine of 15/1.00 upon admission Seems to be corrected as lab values are in the baseline range Baseline appears to be 1 to 1.2 Continue to trend labs Avoid nephrotoxic medications Probably related to urinary obstruction or retention KUB no renal stones renal ultrasound no hydronephrosis Consider nephrology consult Urine culture coag neg staph (2) Neuropathy: Code(s): G62.9 - Polyneuropathy, unspecified Status: Acute Assessment and Plan: Patient reports numbness and states that he is walking on the bricks Start patient on gabapentin 100 mg t.i.d. PT and OT Increase gabapentin upon symptomatology (3) Abnormal urinalysis: Code(s): R82.90 - Unspecified abnormal findings in urine Status: Acute Assessment and Plan: UA looks infective with positive nitrates, 1+ leukocyte esterase, wbc's 21-30 with trace bacteria Continue Rocephin from the ER Urine culture coag neg staph Adjust therapy to urine culture results WBCs are Trend labs (4) Urinary retention: Code(s): R33.9 - Retention of urine, unspecified Status: Acute Assessment and Plan: Urinary retention noted by bladder scan with a post residual void over 900 Urinary catheter installed Trend urine output Urology consult since the patient has a history of prostate cancer Will need 1 week follow up with urology (5) BPH (benign prostatic hyperplasia): Code(s): N40.0 - Benign prostatic hyperplasia without lower urinary tract symptoms Status: Acute Assessment and Plan: Patient does have a history of the PH and prostate cancer Continue home tamsulosin, consider adding finasteride Trend urinary output Accurate I&Os Continue urinary catheter at this time Urology consult PSA 12.2 (6) Essential hypertension: Code(s): I10 - Essential (primary) hypertension Status: Acute Assessment and Plan: 147/69 currently Continue home medications probably from urinary retention Trend BP Adjust therapy as indicated DS: Summary Hospital Course Hospital Course: Patient is a 81 year old male with a past medical history of HTN, BPH, and CLAUDIO who presented to the ED with complaints of urinary retention and persistent hypertension. Urinary catheter was placed, and urine output has been trended. Urine culture was obtained and did come back with vaibhav davis. Patient was initially started on ceftriaxone. WBC have been trending down and are currently at 10.7. Upon arrival patient was noted to have acute renal failure with an elevated BUN/Cr. Fluids were initiated and continued and the BUN/Cr have significantly reduced and are back to base line. Urology was consulted. Urinary catheter will need to continue and follow up in a week for voiding trial. Currently patient is stable and is ready for DC. Antibiotics have been adjusted. Patient denies any chest pain, shortness of breath, nausea, vomiting, diarrhea, or constipation. Status at Discharge Functional status at discharge: independent ambulation Overall status at discharge: patient is progressing back to baseline Time Spent with Patient Time attestation: Total time spent providing and/or coordinating discharge services: 36 minutes Time spent: Greater than 30 minutes Specific discharge activities: Diagnostic testing, chart review, developing a treatment plan, education, care coordination documentation, physical exam, result review Exam Const: General: cooperative, healthy appearing, no acute distress, well developed, alert and awake Nutritional Appearance: well nouris
[2021-11-27] MEDS: CHOLECALCIFEROL 1,000 UNITS TABLET 2000 UNITS PO (10:09)
[2021-11-27 13:02] VITALS: PULSE 69
[2021-11-27] MEDS: atenoloL 25 MG TABLET PO (13:02)
== END 2021-11-27 13:26 ==
LOC: ANHED 10:24 → ANH2MED 13:33
PROVIDERS: Emergency Medicine; Admitting Provider Family Medicine; Emergency Provider Nurse Practitioner Family; PCP Internal Medicine; Visit Provider Nurse Practitioner
DX: N17.9 Acute kidney failure, unspecified (principal); R33.9 Retention of urine, unspecified; N40.1 Benign prostatic hyperplasia with lower urinary tract symptoms; I10 Essential (primary) hypertension; G62.9 Polyneuropathy, unspecified; G47.33 Obstructive sleep apnea (adult) (pediatric); Z87.891 Personal history of nicotine dependence
CPT/HCPCS: 36415; 74018; 74177; 76775; 80053; 81001; 83605; 83735; 84153; 85025; 85055; 87040; 87086; 87147; 87181; 87186; 93976; 96365; 96372; 96376; 97161; 97165; 99285; A9270; G0378; J0696; J1650; J7030; Q9967

== ENCOUNTER 2021-12-19 11:50 | Emergency (ER) | payer MEDICARE, SELFPAY ==
[2021-12-19 11:58] VITALS: BP 159/82; PULSE 62; RESP 16; TEMP 37.2; O2SAT 96
--- NOTE | 2021-12-19 12:11 | ED.MALEGU ---
HPI - Male Genitourinary General Chief complaint: Urogenital-Male Stated complaint: uti Time Seen by Provider: 12/19/21 12:12 Source: patient, RN notes reviewed and old records reviewed Mode of arrival: ambulatory Limitations: no limitations History of Present Illness HPI Narrative: 81 year old male presents to [facility] care with complaints of urinary frequency, and urgency for several days and increased lower back pain. Patient reports that he lives in a [facility] center and they sent him here to be evaluated for possible UTI. Patient reports that he has no burning with his urination or any known fevers, chills or sweats, has not noted any blood in his urine. Patient reports that he was in the hospital in November because he couldn't urinate and he spent 2 days in the hospital and had a catheter. He reports that he is urinating frequently at this time with no suprapubic pressure verbalized, is taking Proscar and Flomax per orders of urologist. MD Complaint: other (UTI) Onset (ago): day(s) (3) Associated symptoms: Reports other (frequency and urgency) Related Data Home Medications Medication Instructions Recorded Confirmed cholecalciferol (vitamin D3) 50 50 mcg PO DAILY 05/23/20 12/19/21 mcg (2,000 unit) capsule zinc 50 mg tablet 50 mg PO DAILY 05/23/20 12/19/21 dietary supplement See Rx Instructions .Route .COMPLEX 03/10/21 12/19/21 atenolol 25 mg tablet 25 mg PO DAILY 11/25/21 12/19/21 Allergies Allergy/AdvReac Type Severity Reaction Status Date / Time amlodipine Allergy Intermediate HIVES, Verified 12/19/21 11:57 ITCHING hydrochlorothiazide Allergy Unknown RASH & Verified 12/19/21 11:57 ITCHING valsartan Allergy Unknown Hives Verified 12/19/21 11:57 Review of Systems Review of Systems: CONSTITUTIONAL: Denies fever, chills, or sweats. EYES: Denies visual changes, redness, or discharge. ENT: Denies rhinorrhea, congestion, sore throat, or otalgia. CARDIOVASCULAR: Denies chest pain, palpitations, or edema. RESPIRATORY: Denies cough or dyspnea. GASTROINTESTINAL: Denies abdominal pain, nausea, vomiting, or diarrhea. GENITOURINARY: Denies dysuria or hematuria, positive for urgency and frequency and increased back pain SKIN: Denies rash or itching. MUSCULOSKELETAL: Positive lower back pain, joint pain, or myalgia. NEUROLOGIC: Denies headache, numbness, or weakness. PSYCHIATRIC: Denies anxiety or depression. All systems reviewed & are unremarkable except as noted in HPI and below PMFSH Past Medical History Medical History (Updated 12/20/21 @ 00:47 by Berna Ng NP) BPH (benign prostatic hyperplasia) Chronic back pain Essential hypertension Neuropathy Obstructive sleep apnea Surgical History Surgical History (Updated 12/20/21 @ 00:46 by Berna Ng NP) History of basal cell carcinoma excision jaw History of tonsillectomy Family History Family History Father Hypertension, Onset Age: 88 Social History Social History Social History: Patient lives [facility] and is retired [employer] who still down pills little and finances. He currently rates a 2 bedroom to bathroom apartment. His a few years back. Patient wishes to be DNR and his POA is Miguel Boggs who lives in [place]. Smoking packs per day: 0.5 Smoking cigarettes per day: 10.0 Years smoked: 2 Smoking pack-years: 1.00 Smoking status: Former smoker Tobacco type: cigarettes Second hand tobacco smoke exposure: No Smoking end date: 06/06/1960 Alcohol intake: current Drinks per week: 1 Alcohol use details: a glass a wine Substance use: never Substance use type: does not use Additional occupation/education comments: [employer] Gender identity (if verbalized by the patient): Male Spiritual care concerns: No Agree to blood products: Yes Comments At time of sig
== END 2021-12-19 12:55 | disposition home or self-care (01) ==
PROVIDERS: Emergency Provider Registered Nurse; PCP Internal Medicine
DX: N39.0 Urinary tract infection, site not specified (principal); Z87.891 Personal history of nicotine dependence; N40.0 Benign prostatic hyperplasia without lower urinary tract symptoms; I10 Essential (primary) hypertension; G47.33 Obstructive sleep apnea (adult) (pediatric); G62.9 Polyneuropathy, unspecified; Z85.828 Personal history of other malignant neoplasm of skin
CPT/HCPCS: 81003; 87086; 87147; 87181; 87186; 99213; G0463

== ENCOUNTER 2023-02-15 09:26 | Outpatient (CLI) | payer MEDICARE, SELFPAY ==
[2023-02-15 09:52] LABS: Basophils Absolute Auto 0.1 K/mm3 (0.0-0.1); Basophils Percent Auto 0.6 % (0.2-1.2); Eosinophils Absolute Auto 0.1 K/mm3 (0-0.3); Eosinophils Percent Auto 1.4 % (0-4.4); Hematocrit 43.7 % (42.0-52.0); Hemoglobin 14.6 g/dL (14.0-18.0); Immature Granulocyte Absolute 0.04 K/mm3 (0.00-0.031); Immature Granulocyte Percent A 0.5 % (0-0.5); Immature Platelet Fraction Pct 4.9 % (0.9-11.2); Lymphocytes Absolute Auto 1.47 K/mm3 (0.9-3.2); Lymphocytes Percent Auto 17.2 % (18.3-44.2); Mean Corpuscular HGB Conc 33.4 g/dl (32-36); Mean Corpuscular Hemoglobin 30.3 pg (26-34); Mean Corpuscular Volume 90.7 fl (80-100); Mean Platelet Volume 10.2 fl (7.4-10.4); Monocytes Absolute Auto 0.3 K/mm3 (0.1-0.6); Monocytes Percent Auto 3.6 % (2.6-8.5); Neutrophils Absolute Auto 6.6 K/mm3 (1.3-6.7); Neutrophils Percent Auto 76.7 % (45.5-73.1); Platelet Count Result 147 k/mm3 (150-375); Red Blood Count 4.82 M/mm3 (4.6-6.20); Red Cell Distribution Width 12.9 % (11.5-14.5); White Blood Count 8.6 K/mm3 (4.5-10.0)
[2023-02-15 09:53] LABS: Blood Urea Nitrogen 21 mg/dL (8-26); Carbon Dioxide 25 mmol/L (22-30); Chloride 104 mmol/L (98-109); Estimated Glomerular Filt Rate 58; Glucose 113 mg/dL (70-105); Ionized Calcium (POC) 1.16 mmol/L (1.11-1.31); Potassium 3.8 mmol/L (3.5-4.9); Sodium 141 mmol/L (138-146)
[2023-02-15 11:15] LABS: Alanine Aminotransferase 21 U/L (6-50); Albumin Level 3.8 g/dL (3.5-5.1); Alkaline Phosphatase 66 U/L (38-126); Anion Gap 4 mmol/L (8-16); Aspartate Amino Transferase 26 U/L (17-59); Bilirubin,Total 0.8 mg/dL (0.2-1.3); Blood Urea Nitrogen 21 mg/dL (9-20); Calcium 8.5 mg/dL (8.4-10.2); Carbon Dioxide 28 mmol/L (22-30); Chloride 105 mmol/L (98-107); Estimated Glomerular Filt Rate > 60; Glucose 111 mg/dL (65-110); Potassium 3.8 mmol/L (3.4-5.0); Sodium 137 mmol/L (137-145)
== END 2023-02-15 09:27 | disposition home or self-care (01) ==
LOC: ANHLAB 09:29
PROVIDERS: PCP Internal Medicine; Visit Provider Internal Medicine Hematology & Oncology
DX: D75.1 Secondary polycythemia (principal)
CPT/HCPCS: 36415; 80047; 80053; 85025; 85055

== ENCOUNTER 2024-02-12 07:18 | Observation (INO) | payer MEDICARE, SELFPAY ==
[2024-02-12] VITALS (23 sets, daily range): BP systolic 111–172; BP diastolic 59–82; PULSE 50–72; RESP 12–23; TEMP 35.8–36.7; O2SAT 94–99; BMI 23.2
--- NOTE | ~2024-02-12 | XR_ITS ---
Portable chest x-ray Comparison: None Clinical History: Weakness, frequent falls Findings: Lungs are clear, without focal consolidation or pleural effusion. Cardiomediastinal silho uette is unremarkable. Bones and soft tissues are unremarkable. Impression: Clear lungs. Reviewed, dictated and finalized at location . Impression: Clear lungs.
--- NOTE | ~2024-02-12 | CT_ITS ---
Non-contrast CT scan of the Pelvis Clinical indication: Left hip pain Technique: 2.5 mm axial scans were obtained through the pelvis without intravenous or oral contrast. Dose reduction technique was used on this scan by utilizing automated exposure control and iterative reconstruction technique. The dose-length product (DLP) was 311.70 mGy-cm. Findings: Urinary bladder markedly distended, but otherwise unremarkable. Prostate gland markedly enl arged, and indents the bladder base. No ascites. Visualized bowel loops are unremarkable. No pelvic m ass evident. No acute fracture seen. There is chronic left unilateral L5 pars interarticularis defect. There is se patience degenerative disc narrowing at L5-S1. There is moderate to advanced degenerative disc narrowing at L4-L5. Impression: No acute fracture. 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 No subluxation. Degenerative spondylosis of the lumbar spine, as above. Distended urinary bladder with prostatomegaly. Reviewed, dictated and finalized at location . Impression: No acute fracture. 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 No subluxation. Degen erative spondylosis of the lumbar spine, as above. Distended urinary bladder with prostatomegaly.
--- NOTE | ~2024-02-12 | XR_ITS ---
AP view of the pelvis and and AP and lateral views of the left hip Clinical history: Pain Findings: No acute fracture or dislocation is seen. Osseous alignment is anatomic. Bilateral hip and SI joint spaces are preserved. Soft tissues are unremarkable. Impression: No significant abnormality is seen. Reviewed, dictated and finalized at location . Impression: No significant abnormality is seen.
--- NOTE | ~2024-02-12 | CT_ITS ---
CT head without contrast Indication: Status post fall Technique: Serial scans were obtained through the brain without the administration of contrast. Dose reduction technique was used on this scan by utilizing automated exposure control and iterative recon struction technique. The dose-length product (DLP) was 681.00 mGy-cm. Findings: There is no evidence of intracranial hemorrhage, mass lesion, or acute infarct. The ventri cles and subarachnoid spaces are dilated, consistent with mild atrophy. There is no evidence of trisha a, mass effect or midline shift. The visualized paranasal sinuses and mastoid air cells are clear. Impression: No intracranial hemorrhage, mass, or acute infarct. General is atrophy. Reviewed, dictated and finalized at location . Impression: No intracranial hemorrhage, mass, or acute infarct. General is atrophy.
--- NOTE | ~2024-02-12 | CT_ITS ---
CT Facial Bones and Cervical Spine Clinical Indication: Trauma Technique: Contiguous axial scans were obtained through the facial bones and cervical spine followed by coronal and sagittal reconstructions. Dose reduction technique was used on this scan by utilizing automated exposure control and iterative reconstruction technique. The dose-length product (DLP) was 206.94 mGy-cm. Findings: CT facial bones: No fractures are identified. There is moderate to advanced degenerative disc narrowi ng at C4-C5, C5-C6, C6-C7. There is left neural foraminal narrowing at C4-C5. There is bilateral neur al foraminal narrowing at C5-C6 and C6-C7.. Intraorbital soft tissues appear normal. CT cervical spine: No fractures or subluxation. Unremarkable visualized bony structures. The interv ertebral disc spaces are preserved. No prevertebral soft tissue swelling. Impression: No fracture is seen in the facial bones. No fracture or subluxation of the cervical spine. Degenerative changes cervical spine, as above. Reviewed, dictated and finalized at location . Impression: No fracture is seen in the facial bones. No fracture or subluxation of the cervical spine. Degenerative changes cervical spine, as above.
--- NOTE | ~2024-02-12 | XR_ITS ---
Left Forearm AP and lateral views of the left forearm were performed. Clinical History: Pain Findings: No fracture or dislocation is seen. Osseous alignment in anatomic. Joint spaces are prese rved. Soft tissues are unremarkable. Impression: Unremarkable exam. Reviewed, dictated and finalized at location M. Impression: Unremarkable exam.
--- NOTE | ~2024-02-12 | XR_ITS ---
Lumbosacral Spine: AP and lateral views Clinical History: Pain Findings: The normal lordotic curve is maintained. No fracture or subluxation. There is advanced dege nerative disc narrowing at L3-L4, L4-L5, and L5-S1. There is severe facet arthropathy throughout the lumbar spine. The sacroiliac joints are normally outlined. Impression: Advanced degenerative spondylosis, as above. Reviewed, dictated and finalized at location M. Impression: Advanced degenerative spondylosis, as above.
--- NOTE | 2024-02-12 08:27 | ECG_ITS ---
Test Date: 2024-02-12 10:29:16 Measurements Intervals [place] Rate: 55 P: -13 [place]: 190 QRS: -30 QRSD: 96 T: 23 QT: 419 QTc: 402 Interpretive Statements SINUS BRADYCARDIA BORDERLINE AV CONDUCTION DELAY LOW QRS VOLTAGE IN PRECORDIAL LEADS CONSIDER ANTERIOR INFARCT, AGE INDETERMINATE BASELINE ARTIFACT- I, III, AVR, AVL, V1-V2 ABNORMAL ECG No previous ECG available for comparison Electronically Signed On 02-12-2024 11:44:53 CDT by Lopez Barcenas D.O.
[2024-02-12 08:45] LABS: Basophils Percent Auto 0.6 % (0.2-1.2); Eosinophils Absolute Auto 0.3 K/mm3 (0-0.3); Eosinophils Percent Auto 4.1 % (0-4.4); Hematocrit 42.4 % (42.0-52.0); Hemoglobin 14.5 g/dL (14.0-18.0); Immature Granulocyte Absolute 0.03 K/mm3 (0.00-0.031); Immature Granulocyte Percent A 0.4 % (0-0.5); Immature Platelet Fraction Pct 2.9 % (0.9-11.2); Lymphocytes Percent Auto 19.8 % (18.3-44.2); Mean Corpuscular HGB Conc 34.2 g/dl (32-36); Mean Corpuscular Hemoglobin 30.5 pg (26-34); Mean Corpuscular Volume 89.3 fl (80-100); Mean Platelet Volume 9.8 fl (7.4-10.4); Monocytes Absolute Auto 0.6 K/mm3 (0.1-0.6); Monocytes Percent Auto 8.1 % (2.6-8.5); Neutrophils Absolute Auto 4.7 K/mm3 (1.3-6.7); Platelet Count Result 125 k/mm3 (150-375); Red Blood Count 4.75 M/mm3 (4.6-6.20); Red Cell Distribution Width 13.4 % (11.5-14.5); White Blood Count 7.1 K/mm3 (4.5-10.0)
[2024-02-12 08:54] LABS: Lactic Acid Reflex 0.8 mmol/L (0.7-2.0)
[2024-02-12 08:56] LABS: Alanine Aminotransferase 12 U/L (6-50); Albumin Level 3.6 g/dL (3.5-5.1); Alkaline Phosphatase 89 U/L (38-126); Anion Gap 5 mmol/L (4-12); Aspartate Amino Transferase 19 U/L (17-59); Bilirubin,Total 0.9 mg/dL (0.2-1.3); Blood Urea Nitrogen 20 mg/dL (9-20); Calcium 8.5 mg/dL (8.4-10.2); Carbon Dioxide 26 mmol/L (22-30); Chloride 104 mmol/L (98-107); Estimated CRCL calculation 62 ml/min; Estimated Glomerular Filt Rate > 60; Glucose 90 mg/dL (65-110); Potassium 4.2 mmol/L (3.4-5.0); Sodium 135 mmol/L (137-145)
[2024-02-12] MEDS: TETANUS,DIPHTHERIA,AC PERTUSSIS ADULT (0.5 ML) BOOSTRIX IM (09:24)
[2024-02-12 10:28] LABS: Add Urine Microscopic? NO; Appearance Urine Clear (Clear); Bilirubin Urine Negative (Negative); Blood Urine Negative (Negative); Color Urine Yellow (Yellow); Glucose Urine UA Negative (Negative); Ketones Urine Negative (Negative); Leukocyte Esterase Ur Negative LEU/UL (Negative); Nitrate Urine Negative (Negative); Protein Urine Negative (Negative); Specific Grav Ur 1.012 (1.001-1.035); Urobilinogen Urine 0.2 mg/dL (<2.0); pH Urine 5.5 (5.0-9.0)
--- NOTE | 2024-02-12 10:36 | ED.GENADULT ---
HPI - General Adult General Chief complaint: Fall Stated complaint: fall Time Seen by Provider: 02/12/24 08:12 History of Present Illness HPI narrative: Patient 83-year-old gentleman presents emergency department with chief complaint of frequent falls the patient reports that he lives in independent living and reports that he has had multiple falls recently patient reports that this evening he got up to go the bathroom lost his balance and fell to the ground the patient states he had to crawl across the floor reports that he feels that he is getting to a point that he is not able to take care for himself at independent living. The patient reports that he struck the right side of his face the patient reports that he does not bleed via loss of consciousness but does report that he has a headache the patient reports that he has skin tears to his left forearm and reports that it hurts whenever he tries to ambulate Related Data Home Medications Medication Instructions Recorded Confirmed cholecalciferol (vitamin D3) 50 50 mcg PO DAILY 05/23/20 02/12/24 mcg (2,000 unit) capsule zinc 50 mg tablet 50 mg PO DAILY 05/23/20 02/12/24 dietary supplement See Rx Instructions .Route .COMPLEX 03/10/21 02/12/24 Allergies Allergy/AdvReac Type Severity Reaction Status Date / Time amlodipine Allergy Intermediate HIVES, Verified 02/22/23 10:20 ITCHING hydrochlorothiazide Allergy Unknown RASH & Verified 02/22/23 10:20 ITCHING valsartan Allergy Unknown Hives Verified 02/22/23 10:20 Review of Systems Review of Systems: A 10 system review of systems was completed on the patient and is negative except for what is stated in the HPI. Nursing and ancillary documentation was reviewed. [facility] Past Medical History Medical History (Updated 02/12/24 @ 15:08 by Lia Palmer PA-C) Basal cell carcinoma of skin Chronic back pain Dyslipidemia Essential hypertension Left ventricular diastolic dysfunction, NYHA class 1 Neuropathy Obstructive sleep apnea Surgical History Surgical History History of basal cell carcinoma excision jaw History of tonsillectomy Family History Family History Father Hypertension, Onset Age: 88 Social History Social History (Updated 02/12/24 @ 12:58 by WILEY Naylor Social History: Patient wishes to be DNR and his POA is Miguel Boggs who lives in [place]. Smoking packs per day: 0.5 Smoking cigarettes per day: 10.0 Years smoked: 2 Smoking pack-years: 1.00 Smoking status: Former smoker Tobacco type: cigarettes Second hand tobacco smoke exposure: No Smoking end date: 06/06/1960 Alcohol intake: current Drinks per week: 1 Alcohol use details: a glass a wine Substance use: never Substance use type: does not use Do You Feel Safe in your Home?: Yes Lack of Transportation: No Lack of Food: Never True Current Housing: I Have Housing Concerned About Future Housing: No Difficulty Paying Gas/Electric Bills: No Difficulty Paying for Meds: No Currently Unemployed: No Education: Master's Degree or Higher Difficulty w/ Childcare or Family Care: No Living arrangements: assisted living Additional living arrangements comments: . Lives at [facility]. Occupation/Education: retired Additional occupation/education comments: [employer] Spiritual care concerns: No Agree to blood products: Yes Exam Narrative: GENERAL: Well-appearing, well-nourished, and in no acute distress. HEAD: Normocephalic, bruising present to the right facial area around the orbit. There is swelling of the right lower eyelid. EYES: PERRLA and EOMI. ENT: Nares clear, no rhinorrhea or epistaxis. Mucous membranes moist. NECK: Supple. CHEST: Clear to auscultation. No respiratory distress. HEART: Regular rate and rhythm
--- NOTE | 2024-02-12 12:55 | PM.IMHP ---
H&P: HPI History of Present Illness Date/Time: 02/12/24 12:55 Chief Complaint: Fall. Narrative: This is an 83-year-old male with hypertension, diastolic dysfunction, benign prostatic hyperplasia, and peripheral neuropathy who presented to the emergency department via EMS from [facility] for evaluation after a fall. The patient provides the following history. Last evening he got up to use the restroom, lost his balance, and fell to the ground. He hit the right side of his face on the ground and had skin tears to his left forearm. He is having difficulties walking due to pain in the left hip. He has had several falls recently and feels as though he may need more care, possibly assisted living. In the ED: Vital signs were stable on arrival. CMP and CBC were pretty unremarkable with the only outlier is being a platelet count of 125, sodium 135, total protein 6.0. Urinalysis was unremarkable. Multiple imaging studies were without acute findings. The patient was given a tetanus booster and he is being admitted in this setting for PT/OT consult and probable placement in assisted living. Review of Systems Review of Systems: 12 systems were reviewed and are negative except for as per HPI. REPLACED BY [facility] Past Medical History Medical History (Updated 02/12/24 @ 15:08 by Lia Palmer PA-C) Basal cell carcinoma of skin Chronic back pain Dyslipidemia Essential hypertension Left ventricular diastolic dysfunction, NYHA class 1 Neuropathy Obstructive sleep apnea Surgical History Surgical History History of basal cell carcinoma excision jaw History of tonsillectomy Family History Family History Father Hypertension, Onset Age: 88 Social History Social History (Updated 02/12/24 @ 12:58 by Lia Palmer PA-C) Social History: Patient wishes to be DNR and his POA is Miguel Pearsonlman who lives in [place]. Smoking packs per day: 0.5 Smoking cigarettes per day: 10.0 Years smoked: 2 Smoking pack-years: 1.00 Smoking status: Former smoker Tobacco type: cigarettes Second hand tobacco smoke exposure: No Smoking end date: 06/06/1960 Alcohol intake: current Drinks per week: 1 Alcohol use details: a glass a wine Substance use: never Substance use type: does not use Do You Feel Safe in your Home?: Yes Lack of Transportation: No Lack of Food: Never True Current Housing: I Have Housing Concerned About Future Housing: No Difficulty Paying Gas/Electric Bills: No Difficulty Paying for Meds: No Currently Unemployed: No Education: Master's Degree or Higher Difficulty w/ Childcare or Family Care: No Living arrangements: assisted living Additional living arrangements comments: . Lives at [facility]. Occupation/Education: retired Additional occupation/education comments: [employer] Spiritual care concerns: No Agree to blood products: Yes Meds Home Medications and Allergies Home Medications Medication Instructions Recorded Confirmed Type cholecalciferol (vitamin D3) 50 50 mcg PO DAILY 05/23/20 02/12/24 History mcg (2,000 unit) capsule zinc 50 mg tablet 50 mg PO DAILY 05/23/20 02/12/24 History dietary supplement See Rx Instructions .Route .COMPLEX 03/10/21 02/12/24 History gabapentin 100 mg capsule 100 mg PO DAILY #30 caps 12/15/21 02/12/24 Rx levofloxacin 250 mg tablet 250 mg PO DAILY #5 tabs 12/24/21 02/12/24 Rx finasteride 5 mg tablet (Proscar) 5 mg PO QAM #90 tabs 02/26/22 02/12/24 Rx losartan 100 mg tablet 100 mg PO DAILY #90 tabs 02/26/22 02/12/24 Rx atenolol 25 mg tablet 25 mg PO DAILY #90 tabs 03/08/22 02/12/24 Rx clonidine HCl 0.1 mg tablet 0.1 mg PO DAILY PRN hypertensive 03/08/22 02/12/24 Rx emergency 90 days #90 tabs tamsulosin 0.4 mg capsule See Rx Instructions .Route 06/23/22 02/12/24 Rx .COMPLEX #9
--- NOTE | 2024-02-12 12:56 | ADMGEN ---
This patient, Crow Smith III, was admitted to 3 [facility] Surg Room 315-01. Patient/family oriented to hospital policies and general routines including ID bracelet, bed and alarms, visiting hours, pain management, procedures, bathroom and other care routines, personal items, smoking policy, room service/diet, and visiting hours. Information on how to activate the Rapid Response Team has been discussed. Patient/Family are encouraged to report perceived risks to care and to ask questions if they do not understand what they are told or what they should do.
[2024-02-12] MEDS: CHOLECALCIFEROL 1,000 UNITS TABLET 2000 UNITS PO (15:55)
[2024-02-12] MEDS: GABAPENTIN 100 MG CAPSULE PO (15:55)
[2024-02-12] MEDS: LOSARTAN POTASSIUM 100 MG TABLET PO (15:55)
[2024-02-12] MEDS: atenoloL 25 MG TABLET PO (15:56)
[2024-02-12] MEDS: FINASTERIDE 5 MG TABLET PO (15:56)
[2024-02-12] MEDS: ZINC SULFATE 220 MG CAPSULE PO (15:56)
[2024-02-12] MEDS: TAMSULOSIN HCL 0.4 MG CAPSULE BY MOUTH (21:26)
[2024-02-12] MEDS: ACETAMINOPHEN 325 MG TABLET 650 MG PO (21:26)
[2024-02-12] MEDS: ARTIFICIAL TEARS OPHTH SOLN 15 ML BOTTLE 1 DROP EACH EYE (22:47)
[2024-02-13 04:45] VITALS: BP 126/68; PULSE 50; RESP 16; TEMP 36.5; O2SAT 96
[2024-02-13 07:52] LABS: Hematocrit 42.6 % (42.0-52.0); Hemoglobin 14.3 g/dL (14.0-18.0); Immature Platelet Fraction Pct 3.6 % (0.9-11.2); Mean Corpuscular HGB Conc 33.6 g/dl (32-36); Mean Corpuscular Hemoglobin 30.4 pg (26-34); Mean Corpuscular Volume 90.4 fl (80-100); Mean Platelet Volume 10.3 fl (7.4-10.4); Platelet Count Result 132 k/mm3 (150-375); Red Blood Count 4.71 M/mm3 (4.6-6.20); Red Cell Distribution Width 13.3 % (11.5-14.5); White Blood Count 6.7 K/mm3 (4.5-10.0)
[2024-02-13 07:54] LABS: Anion Gap 8 mmol/L (4-12); Blood Urea Nitrogen 19 mg/dL (9-20); Calcium 8.5 mg/dL (8.4-10.2); Carbon Dioxide 27 mmol/L (22-30); Chloride 101 mmol/L (98-107); Estimated CRCL calculation 51 ml/min; Estimated Glomerular Filt Rate > 60; Glucose 95 mg/dL (65-110); Magnesium 2.1 mg/dL (1.6-2.3); Potassium 4.1 mmol/L (3.4-5.0); Sodium 136 mmol/L (137-145)
[2024-02-13 08:30] VITALS: O2SAT 95
[2024-02-13] MEDS: LOSARTAN POTASSIUM 100 MG TABLET PO (08:39)
[2024-02-13] MEDS: CHOLECALCIFEROL 1,000 UNITS TABLET 2000 UNITS PO (08:39)
[2024-02-13] MEDS: atenoloL 25 MG TABLET PO (08:39)
[2024-02-13] MEDS: FINASTERIDE 5 MG TABLET PO (08:39)
[2024-02-13] MEDS: ZINC SULFATE 220 MG CAPSULE PO (08:39)
[2024-02-13] MEDS: GABAPENTIN 100 MG CAPSULE PO (08:39)
--- NOTE | 2024-02-13 10:24 | PM.IMPN ---
Progress Note: A&P Assessment and Plan (1) Falls: Code(s): R29.6 - Repeated falls Status: Acute Assessment and Plan: PT/ OT to evaluate and treat. Up with assistance. (2) Essential hypertension: Code(s): I10 - Essential (primary) hypertension Status: Chronic Assessment and Plan: Blood pressure is stable. Patient receiving Atenolol, Clonidine, and Losartan. Report any headaches, chest pain, or palpitations. (3) Bacterial conjunctivitis of right eye: Code(s): H10.9 - Unspecified conjunctivitis Status: Acute Assessment and Plan: Add Polymyxin/ Trimethoprim 2 drops into right eye QID. Keep eye clean and dry. (4) Protein-calorie malnutrition, mild: Code(s): E44.1 - Mild protein-calorie malnutrition Status: Acute Assessment and Plan: Protein 6.0. Add Ensure Enlive 3 times a day. Encourage protein intake. (5) Thrombocytopenia: Code(s): D69.6 - Thrombocytopenia, unspecified Status: Chronic Assessment and Plan: 02/12/24 platelets 125, 02/13/24 platelets 132. Monitor for bleeding and bruising. Plan The patient presented to the emergency department for evaluation after having several falls as detailed in HPI. Labs, imaging, EKG, and all reports were personally reviewed. The patient lives in independent living at [facility] and he feels as though he needs more help. He will be admitted for PT/OT evaluation and care coordination consult for probable assisted living placement. Blood pressures were reviewed and are stable. He has chronic, mild thrombocytopenia which is stable. He is on tamsulosin and finasteride for BPH yet pelvic CT showed distended urinary bladder. Bladder scan p.r.n. His home medications will be reviewed and resumed as appropriate. Findings and treatment plan were discussed with the patient. Questions were solicited and answered to satisfaction. The patient's medical management will be taken over by the hospitalist team in a.m. Subjective Date/time seen: 02/13/24 10:24 Interval history: Patient is an 83-year-old male with hypertension, diastolic dysfunction, benign prostatic hyperplasia, and peripheral neuropathy who presented to the emergency department via EMS from [facility] for evaluation after a fall. The patient provides the following history. Last evening he got up to use the restroom, lost his balance, and fell to the ground. He hit the right side of his face on the ground and had skin tears to his left forearm. He is having difficulties walking due to pain in the left hip. He has had several falls recently and feels as though he may need more care, possibly assisted living. WBC 6.7, Na+ 136, Protein 6.0, Platelets 132. Review of Systems Review of Systems: 12 systems were reviewed and are negative except for as per HPI. Exam Const: General: comfortable and no acute distress Eyes: Other: Right eye with redness and draining yellowish green drainage. Edema to right side of face from fall. Normocephalic, bruising present to the right facial area around the orbit. There is swelling of the right lower eyelid. Neck: Neck: supple Resp: Auscultation: clear to auscultation bilaterally Cardio: Rate: bradycardic Skin: General skin exam: rashes and/or lesions noted Neuro: Other: No focal deficits. A&Ox3. Extrem: Other: Normal range of motion there is a skin tear present to the left forearm there is mild tenderness to palpation in the left hip area. No edema. Psych: Affect: normal affect Objective Data Vital Signs Vital Signs: Vital Signs - 24 hr 02/12/24 10:33 02/12/24 10:30 02/12/24 10:49 Temperature Pulse Rate 72 56 L Respiratory Rate 18 23 H 16 Blood Pressure Pulse Oximetry 96 96 97 Oxygen Delivery Fraction of Inspired Oxygen 02/12/24 11:29 02/12/24 11:30 02/12/24 11:48 Temperature Pulse Rate 56 L 55 L 54 L Respiratory Rate 15 13 17 Bloo
[2024-02-13] MEDS: POLYMYXIN/TRIMETHOPRIM OPHTH 10 ML DROPS 2 DROP RIGHT EYE ×3 (12:30→20:54)
[2024-02-13 14:00] VITALS: BP 95/65; PULSE 53; RESP 16; TEMP 36.6; O2SAT 98
[2024-02-13 20:20] VITALS: PULSE 55; RESP 10; O2SAT 92
[2024-02-13] MEDS: TAMSULOSIN HCL 0.4 MG CAPSULE BY MOUTH (20:54)
[2024-02-13 20:55] VITALS: BP 108/73; PULSE 60; RESP 18; TEMP 36.7; O2SAT 95
[2024-02-14 06:00] VITALS: BP 110/68; PULSE 82; RESP 18; TEMP 37.1; O2SAT 95
[2024-02-14 07:36] LABS: Basophils Absolute Auto 0.1 K/mm3 (0.0-0.1); Basophils Percent Auto 0.8 % (0.2-1.2); Eosinophils Absolute Auto 0.3 K/mm3 (0-0.3); Eosinophils Percent Auto 4.2 % (0-4.4); Hemoglobin 14.3 g/dL (14.0-18.0); Immature Granulocyte Absolute 0.02 K/mm3 (0.00-0.031); Immature Granulocyte Percent A 0.3 % (0-0.5); Lymphocytes Percent Auto 19.7 % (18.3-44.2); Mean Corpuscular HGB Conc 33.3 g/dl (32-36); Mean Corpuscular Volume 90.3 fl (80-100); Mean Platelet Volume 10.6 fl (7.4-10.4); Monocytes Absolute Auto 0.5 K/mm3 (0.1-0.6); Neutrophils Absolute Auto 4.8 K/mm3 (1.3-6.7); Platelet Count Result 157 k/mm3 (150-375); Red Blood Count 4.76 M/mm3 (4.6-6.20); Red Cell Distribution Width 13.4 % (11.5-14.5); White Blood Count 7.1 K/mm3 (4.5-10.0)
[2024-02-14 08:03] LABS: Alanine Aminotransferase 11 U/L (6-50); Albumin Level 3.4 g/dL (3.5-5.1); Alkaline Phosphatase 94 U/L (38-126); Anion Gap 8 mmol/L (4-12); Aspartate Amino Transferase 17 U/L (17-59); Bilirubin,Total 0.9 mg/dL (0.2-1.3); Blood Urea Nitrogen 20 mg/dL (9-20); Calcium 8.4 mg/dL (8.4-10.2); Carbon Dioxide 25 mmol/L (22-30); Chloride 103 mmol/L (98-107); Estimated CRCL calculation 56 ml/min; Estimated Glomerular Filt Rate > 60; Glucose 98 mg/dL (65-110); Potassium 4.1 mmol/L (3.4-5.0); Sodium 136 mmol/L (137-145)
[2024-02-14 08:51] VITALS: PULSE 82
[2024-02-14] MEDS: atenoloL 25 MG TABLET PO (08:51)
[2024-02-14] MEDS: FINASTERIDE 5 MG TABLET PO (08:51)
[2024-02-14] MEDS: CHOLECALCIFEROL 1,000 UNITS TABLET 2000 UNITS PO (08:51)
[2024-02-14] MEDS: GABAPENTIN 100 MG CAPSULE PO (08:51)
[2024-02-14] MEDS: LOSARTAN POTASSIUM 100 MG TABLET PO (08:51)
[2024-02-14] MEDS: POLYMYXIN/TRIMETHOPRIM OPHTH 10 ML DROPS 2 DROP RIGHT EYE ×4 (08:52→20:15)
[2024-02-14] MEDS: ZINC SULFATE 220 MG CAPSULE PO (08:52)
--- NOTE | 2024-02-14 13:42 | PM.IMPN ---
Progress Note: A&P Assessment and Plan (1) Falls: Code(s): R29.6 - Repeated falls Status: Acute Assessment and Plan: PT/OT to evaluate and treat. Up with assistance. Patient to go to a rehab prior for strengthening prior to returning to [facility], patient awaiting approval for [facility]. (2) Essential hypertension: Code(s): I10 - Essential (primary) hypertension Status: Chronic Assessment and Plan: Blood pressure is stable. Patient receiving Atenolol, Clonidine, and Losartan. Report any headaches, chest pain, or palpitations. (3) Bacterial conjunctivitis of right eye: Code(s): H10.9 - Unspecified conjunctivitis Status: Acute Assessment and Plan: Improving. Add Polymyxin/ Trimethoprim 2 drops into right eye QID. Keep eye clean and dry. (4) Protein-calorie malnutrition, mild: Code(s): E44.1 - Mild protein-calorie malnutrition Status: Acute Assessment and Plan: Protein 6.0. Add Ensure Enlive 3 times a day. Encourage protein intake. (5) Thrombocytopenia: Code(s): D69.6 - Thrombocytopenia, unspecified Status: Chronic Assessment and Plan: Improved. 02/14/24 platelets 157, 02/13/24 platelets 132, 02/12/24 platelets 125. Monitor for bleeding and bruising. Plan The patient presented to the emergency department for evaluation after having several falls as detailed in HPI. Labs, imaging, EKG, and all reports were personally reviewed. The patient lives in independent living at [facility] and he feels as though he needs more help. He will be admitted for PT/OT evaluation and care coordination consult for probable assisted living placement. Blood pressures were reviewed and are stable. He has chronic, mild thrombocytopenia which is stable. He is on tamsulosin and finasteride for BPH yet pelvic CT showed distended urinary bladder. Bladder scan p.r.n. . Subjective Date/time seen: 02/14/24 13:42 Interval history: Patient is an 83-year-old male with hypertension, diastolic dysfunction, benign prostatic hyperplasia, and peripheral neuropathy who presented to the emergency department via EMS from [facility] for evaluation after a fall. The patient provides the following history. Last evening he got up to use the restroom, lost his balance, and fell to the ground. He hit the right side of his face on the ground and had skin tears to his left forearm. He is having difficulties walking due to pain in the left hip. He has had several falls recently and feels as though he may need more care, possibly assisted living. Patient is receiving PT/OT here. Patient to go to a rehab prior for strengthening prior to returning to [facility], patient awaiting approval for [facility]. Patient reports pain in neck is a 2 , frequent, and aching. WBC 7.1, Na+ 136, Protein 6.0, Albumin 3.4, Platelets 157. Review of Systems Review of Systems: 12 systems were reviewed and are negative except for as per HPI. Exam Const: General: comfortable and no acute distress Eyes: Other: Right eye with redness and draining yellowish green drainage. Edema to right side of face from fall. Normocephalic, bruising present to the right facial area around the orbit. There is swelling of the right lower eyelid. Neck: Neck: supple Resp: Auscultation: clear to auscultation bilaterally Cardio: Rate: bradycardic Skin: General skin exam: rashes and/or lesions noted Neuro: Other: No focal deficits. A&Ox3. Extrem: Other: Normal range of motion there is a skin tear present to the left forearm there is mild tenderness to palpation in the left hip area. No edema. Psych: Affect: normal affect Objective Data Vital Signs Vital Signs: Vital Signs - 24 hr 02/13/24 14:00 02/13/24 20:20 02/13/24 20:55 Temperature 97.9 F 98.0 F Pulse Rate 53 L 55 L 60 Respiratory Rate 16 10 L 18 Blood Pressure 95/65 L 108/73 Pulse Oximetry 98 92 95 Oxygen Del
[2024-02-14 14:00] VITALS: BP 98/60; PULSE 63; RESP 14; TEMP 36.2; O2SAT 96
[2024-02-14] MEDS: TAMSULOSIN HCL 0.4 MG CAPSULE BY MOUTH (20:15)
[2024-02-14 21:02] VITALS: BP 101/64; PULSE 58; RESP 20; TEMP 36.5; O2SAT 96
[2024-02-14 21:30] VITALS: PULSE 61; RESP 12; O2SAT 93
[2024-02-15 05:42] VITALS: BP 129/80; PULSE 50; RESP 20; TEMP 36.4; O2SAT 99
[2024-02-15 06:35] LABS: Basophils Percent Auto 0.5 % (0.2-1.2); Eosinophils Absolute Auto 0.4 K/mm3 (0-0.3); Eosinophils Percent Auto 5.6 % (0-4.4); Hematocrit 41.4 % (42.0-52.0); Hemoglobin 14.2 g/dL (14.0-18.0); Immature Granulocyte Absolute 0.03 K/mm3 (0.00-0.031); Immature Granulocyte Percent A 0.4 % (0-0.5); Immature Platelet Fraction Pct 2.9 % (0.9-11.2); Lymphocytes Absolute Auto 1.67 K/mm3 (0.9-3.2); Lymphocytes Percent Auto 22.4 % (18.3-44.2); Mean Corpuscular HGB Conc 34.3 g/dl (32-36); Mean Corpuscular Hemoglobin 30.7 pg (26-34); Mean Corpuscular Volume 89.6 fl (80-100); Monocytes Absolute Auto 0.6 K/mm3 (0.1-0.6); Monocytes Percent Auto 7.9 % (2.6-8.5); Neutrophils Absolute Auto 4.7 K/mm3 (1.3-6.7); Neutrophils Percent Auto 63.2 % (45.5-73.1); Platelet Count Result 134 k/mm3 (150-375); Red Blood Count 4.62 M/mm3 (4.6-6.20); Red Cell Distribution Width 13.5 % (11.5-14.5); White Blood Count 7.5 K/mm3 (4.5-10.0)
[2024-02-15 06:47] LABS: Alanine Aminotransferase 11 U/L (6-50); Albumin Level 3.3 g/dL (3.5-5.1); Alkaline Phosphatase 89 U/L (38-126); Anion Gap 6 mmol/L (4-12); Aspartate Amino Transferase 17 U/L (17-59); Bilirubin,Total 0.7 mg/dL (0.2-1.3); Blood Urea Nitrogen 25 mg/dL (9-20); Calcium 8.4 mg/dL (8.4-10.2); Carbon Dioxide 26 mmol/L (22-30); Chloride 102 mmol/L (98-107); Estimated CRCL calculation 62 ml/min; Estimated Glomerular Filt Rate > 60; Glucose 92 mg/dL (65-110); Potassium 4.1 mmol/L (3.4-5.0); Sodium 134 mmol/L (137-145)
[2024-02-15 08:26] VITALS: PULSE 79
[2024-02-15] MEDS: LOSARTAN POTASSIUM 100 MG TABLET PO (08:26)
[2024-02-15] MEDS: FINASTERIDE 5 MG TABLET PO (08:26)
[2024-02-15] MEDS: ZINC SULFATE 220 MG CAPSULE PO (08:26)
[2024-02-15] MEDS: GABAPENTIN 100 MG CAPSULE PO (08:26)
[2024-02-15] MEDS: CHOLECALCIFEROL 1,000 UNITS TABLET 2000 UNITS PO (08:26)
[2024-02-15] MEDS: atenoloL 25 MG TABLET PO (08:26)
[2024-02-15] MEDS: POLYMYXIN/TRIMETHOPRIM OPHTH 10 ML DROPS 2 DROP RIGHT EYE ×2 (08:29→13:22)
[2024-02-15 09:41] VITALS: O2SAT 96
--- NOTE | 2024-02-15 12:30 | PM.IMPN ---
Progress Note: A&P Assessment and Plan (1) Falls: Code(s): R29.6 - Repeated falls Status: Acute Assessment and Plan: PT/OT to evaluate and treat. Up with assistance. Patient to go to a rehab prior for strengthening prior to returning to [facility], patient awaiting approval for [facility]. (2) Essential hypertension: Code(s): I10 - Essential (primary) hypertension Status: Chronic Assessment and Plan: Blood pressure is stable. Patient receiving Atenolol, Clonidine, and Losartan. Report any headaches, chest pain, or palpitations. (3) Bacterial conjunctivitis of right eye: Code(s): H10.9 - Unspecified conjunctivitis Status: Acute Assessment and Plan: Improving. Add Polymyxin/ Trimethoprim 2 drops into right eye QID. Keep eye clean and dry. (4) Protein-calorie malnutrition, mild: Code(s): E44.1 - Mild protein-calorie malnutrition Status: Acute Assessment and Plan: Protein 6.0. Add Ensure Enlive 3 times a day. Encourage protein intake. (5) Thrombocytopenia: Code(s): D69.6 - Thrombocytopenia, unspecified Status: Chronic Assessment and Plan: Improved. 02/14/24 platelets 157, 02/13/24 platelets 132, 02/12/24 platelets 125. Monitor for bleeding and bruising. Plan The patient presented to the emergency department for evaluation after having several falls as detailed in HPI. Labs, imaging, EKG, and all reports were personally reviewed. The patient lives in independent living at [facility] and he feels as though he needs more help. He will be admitted for PT/OT evaluation and care coordination consult for probable assisted living placement. Blood pressures were reviewed and are stable. He has chronic, mild thrombocytopenia which is stable. He is on tamsulosin and finasteride for BPH yet pelvic CT showed distended urinary bladder. Bladder scan p.r.n. . Subjective Date/time seen: 02/15/24 12:30 Interval history: Patient is an 83-year-old male with hypertension, diastolic dysfunction, benign prostatic hyperplasia, and peripheral neuropathy who presented to the emergency department via EMS from [facility] for evaluation after a fall. The patient provides the following history. Last evening he got up to use the restroom, lost his balance, and fell to the ground. He hit the right side of his face on the ground and had skin tears to his left forearm. He is having difficulties walking due to pain in the left hip. He has had several falls recently and feels as though he may need more care, possibly assisted living. Patient is receiving PT/OT here. Patient to go to a rehab prior for strengthening prior to returning to [facility], patient awaiting approval for [facility]. Patient reports pain in neck is a 4 , frequent, and aching. WBC 7.5, Na+ 134, Protein 6.0, Albumin 3.4, Platelets 134.. Review of Systems Review of Systems: 12 systems were reviewed and are negative except for as per HPI. Exam Const: General: comfortable and no acute distress Eyes: Other: Right eye with redness and draining yellowish green drainage. Edema to right side of face from fall. Normocephalic, bruising present to the right facial area around the orbit. There is swelling of the right lower eyelid. Neck: Neck: supple Resp: Auscultation: clear to auscultation bilaterally Cardio: Rate: bradycardic Skin: General skin exam: rashes and/or lesions noted Neuro: Other: No focal deficits. A&Ox3. Extrem: Other: Normal range of motion there is a skin tear present to the left forearm there is mild tenderness to palpation in the left hip area. No edema. Psych: Affect: normal affect Objective Data Vital Signs Vital Signs: Vital Signs - 24 hr 02/14/24 14:00 02/14/24 21:02 02/14/24 21:30 Temperature 97.2 F L 97.7 F Pulse Rate 63 58 L 61 Respiratory Rate 14 20 12 Blood Pressure 98/60 L 101/64 Pulse Oximetry 96 96 93 Oxygen Deliv
--- NOTE | 2024-02-15 13:59 | PM.DS ---
DS: Admitting Diagnosis Discharge Date 02/15/2024 Admitting Diagnosis Frequent falls DS: Discharge Diagnosis Discharge Diagnosis Plan Final diagnoses: Falls and bacterial conjunctivitis right eye. DS: Summary Hospital Course Reason for hospitalization: Frequent falls. Hospital Course: Patient is an 83-year-old male with hypertension, diastolic dysfunction, benign prostatic hyperplasia, and peripheral neuropathy who presented to the emergency department via EMS from [facility] for evaluation after a fall. The patient provides the following history. Admitted after he got up to use the restroom, lost his balance, and fell to the ground. He hit the right side of his face on the ground and had skin tears to his left forearm. He is having difficulties walking due to pain in the left hip. He has had several falls recently and feels as though he may need more care, possibly assisted living. Patient is receiving PT/OT here. Patient to go to a rehab prior for strengthening prior to returning to [facility] accepted patient. Patient reports pain in neck is a 4 , frequent, and aching. Urine negative. EKG showed sinus bradycardia- rate 55, Head CT 02/12/24 08:56 Impression: No intracranial hemorrhage, mass, or acute infarct. General is atrophy. Head/Cervical Spine/Facial Bones CT 02/12/24 08:56 Impression: No fracture is seen in the facial bones. No fracture or subluxation of the cervical spine. Degenerative changes cervical spine, as above. Forearm X-Ray 02/12/24 09:10 Impression: Unremarkable exam. Lumbar Spine X-Ray 02/12/24 09:10 Impression: Advanced degenerative spondylosis, as above. Chest X-Ray 02/12/24 09:11 Impression: Clear lungs. Hip/Pelvis X-Ray 02/12/24 09:11 Impression: No significant abnormality is seen. Pelvis CT 02/12/24 11:15 Impression: No acute fracture. 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 No subluxation. Degenerative spondylosis of the lumbar spine, as above. Distended urinary bladder with prostatomegaly. WBC 7.5, Na+ 134, Protein 6.0, Albumin 3.4, Platelets 134. Status at Discharge Functional status at discharge: uses cane/walker Overall status at discharge: patient is progressing back to baseline Time Spent with Patient Time attestation: Total time spent providing and/or coordinating discharge services: Time spent: Greater than 30 minutes Exam Narrative: Const: General: comfortab le and no acute di stress Eyes: Other: Right eye with redness and draining yellowish green drainage. E tobi to right side of face from fall . Normocephalic, b ruising present to the right facial area around the or bit. There is swe lling of the right lower eyelid. Neck: Neck: supple Resp: Auscultation: lea r to auscultation bilaterally Cardio: Rate: bradycardic Skin: General skin exam: rashes and/or les ions noted Neuro: Other: No focal deficits. A&Ox3. Extrem: Other: Normal ra nge of motion ther e is a skin tear p resent to the left forearm there is mild tenderness to palpation in the left hip area. No edema. Psych: Affect: normal aff ect DS: Data Data Completed and Pending Labs on
[2024-02-15 14:00] VITALS: BP 110/72; PULSE 59; RESP 16; TEMP 36.3; O2SAT 97
== END 2024-02-15 14:55 ==
LOC: ANHED 09:13 → ANH3MEDSUR 15:55
PROVIDERS: Nurse Practitioner Family; Physician Assistant; Admitting Provider Internal Medicine; Emergency Provider Emergency Medicine; Visit Provider Internal Medicine
DX: R53.1 Weakness (principal); S00.83XA Contusion of other part of head, initial encounter; S51.812A Laceration without foreign body of left forearm, initial encounter; D69.6 Thrombocytopenia, unspecified; H10.9 Unspecified conjunctivitis; W18.39XA Other fall on same level, initial encounter; R29.6 Repeated falls; E44.1 Mild protein-calorie malnutrition; Z68.22 Body mass index [BMI] 22.0-22.9, adult; I11.9 Hypertensive heart disease without heart failure; E78.5 Hyperlipidemia, unspecified; G47.33 Obstructive sleep apnea (adult) (pediatric); G62.9 Polyneuropathy, unspecified; Z87.891 Personal history of nicotine dependence; Z23 Encounter for immunization
CPT/HCPCS: 36415; 70450; 70486; 71045; 72100; 72125; 72192; 73090; 73502; 80048; 80053; 81003; 83605; 83735; 85025; 85027; 85055; 90471; 90715; 93005; 97110; 97116; 97161; 97165; 97530; 97535; 99285; A9270; G0378

== ENCOUNTER 2024-03-04 03:15 | Emergency (ER) | payer MEDICARE, SELFPAY ==
[2024-03-04] VITALS (39 sets, daily range): BP systolic 127–163; BP diastolic 73–107; PULSE 53–67; RESP 8–23; TEMP 36.3–36.7; O2SAT 94–100
--- NOTE | ~2024-03-04 | CT_ITS ---
EXAMINATION: CT facial & cervical spine wo DATE: 03/04/2024 05:05 INDICATION: Status post fall. Head injury. TECHNIQUE: Computed tomography (CT) of the maxillofacial region and cervical spine was performed with out intravenous contrast. The dose-length product (DLP) was 240.65 mGy-cm. Automated exposure control and iterative reconstruction technique were employed. Automated exposure control and iterative recon struction technique were employed. COMPARISON: CT dated 02/12/2024 FINDINGS: MAXILLOFACIAL CT: No acute maxillofacial fracture. Orbits intact. Minimal mucosal thickening of the sphenoid sinuses. G eneralized brain parenchymal atrophy noted. CERVICAL SPINE CT: Moderate cervical spondylosis involving C3-4 through C6-7. There is degenerative anterolisthesis of C 7 since T1 secondary to mild facet hypertrophy. Odontoid process is normal. Craniovertebral junction within normal limits. No evidence for perched facet. Moderate multilevel uncinate hypertrophy. No par aspinal soft tissue abnormality. Lung apices are unremarkable. IMPRESSION: 1. No acute abnormality of the facial bones or cervical spine. Reviewed, dictated and finalized at location B.
--- NOTE | ~2024-03-04 | CT_ITS ---
EXAMINATION: CT BRAIN W/O DATE: 03/04/2024 05:05 INDICATION: Status post fall. Head injury. TECHNIQUE: Computed tomography (CT) of the head was performed without intravenous contrast. The dose- length product was 756.67 mGy-cm. Automated exposure control and iterative reconstruction technique w ere employed. COMPARISON: No prior studies for comparison. FINDINGS: Generalized atrophy. There are scattered mild periventricular and subcortical white matter changes, most likely related to small vessel ischemic disease (microangiopathy). There is intracrania l atherosclerosis. Normal acevedo-white differentiation. No acute intracranial hemorrhage, infarction, mass or mass effect. No ventriculomegaly or midline shift. Midline sagittal images demonstrate a normal corpus callosum, c raniovertebral junction and sella turcica. Basilar cisterns are patent. Paranasal sinuses and mastoids are pneumatized. No depressed skull fractures. IMPRESSION: 1. No acute intracranial abnormality. Reviewed, dictated and finalized at location B.
--- NOTE | 2024-03-04 04:50 | PC.NURSE ---
Patient in CT at this time.
--- NOTE | 2024-03-04 07:14 | ED.FALL ---
HPI - Fall General Chief Complaint: Fall Stated Complaint: GLF, lac to nose, not on thinners, BS 89, HTN Time Seen by Provider: 03/04/24 05:52 Source: patient and EMS Mode of arrival: EMS Limitations: no limitations History of Present Illness HPI Narrative: 83 years old white male got up to go to the bathroom, somehow lost his balance and fell on the floor, complaining of neck pain and facial pain. He denies loss of consciousness, head night into coagulant medications denies other injuries. Related Data Home Medications Medication Instructions Recorded Confirmed cholecalciferol (vitamin D3) 50 50 mcg PO DAILY 05/23/20 02/23/24 mcg (2,000 unit) capsule zinc 50 mg tablet 50 mg PO DAILY 05/23/20 02/23/24 dietary supplement See Rx Instructions .Route .COMPLEX 03/10/21 02/23/24 Allergies Allergy/AdvReac Type Severity Reaction Status Date / Time amlodipine Allergy Intermediate HIVES, Verified 03/04/24 04:30 ITCHING hydrochlorothiazide Allergy Unknown RASH & Verified 03/04/24 04:30 ITCHING valsartan Allergy Unknown Hives Verified 03/04/24 04:30 Review of Systems Review of Systems: All systems reviewed & are unremarkable except as noted in HPI and below PMFSH Past Medical History Medical History Basal cell carcinoma of skin Chronic back pain Dyslipidemia Essential hypertension Left ventricular diastolic dysfunction, NYHA class 1 Neuropathy Obstructive sleep apnea Surgical History Surgical History History of basal cell carcinoma excision jaw History of tonsillectomy Family History Family History Father Hypertension, Onset Age: 88 Social History Social History Social History: Patient wishes to be DNR and his POA is Miguel Boggs who lives in [place]. Smoking packs per day: 0.5 Smoking cigarettes per day: 10.0 Years smoked: 2 Smoking pack-years: 1.00 Smoking status: Former smoker Tobacco type: cigarettes Second hand tobacco smoke exposure: No Smoking end date: 06/06/1960 Alcohol intake: current Drinks per week: 1 Alcohol use details: a glass a wine Substance use: never Substance use type: does not use Do You Feel Safe in your Home?: Yes Lack of Transportation: No Lack of Food: Never True Current Housing: I Have Housing Concerned About Future Housing: No Difficulty Paying Gas/Electric Bills: No Difficulty Paying for Meds: No Currently Unemployed: No Education: Master's Degree or Higher Difficulty w/ Childcare or Family Care: No Living arrangements: assisted living Additional living arrangements comments: . Lives at [facility]. Occupation/Education: retired Additional occupation/education comments: [employer] Spiritual care concerns: No Agree to blood products: Yes Exam Narrative: General appearance: Well-developed, well-nourished Skin: Normal color, facial contusion impression on the right side, 2 mm healing laceration across the nasal bridge and across the upper lip, skin avulsion right hand and right forearm Head: Normocephalic, nontraumatic Eyes: Clear conjunctiva ENT: Oropharynx normal, ears normal, nose normal Neck: Diffuse tenderness mainly posteriorly on the right side Chest and respiratory: Airway patent, no respiratory distress, no accessory muscle use Heart: Regular rate/rhythm Abdomen: Soft, nontender, no organomegaly, quiet bowel sounds Vascular: Normal peripheral pulses, normal capillary refill. Musculoskeletal: Normal range of motion, nontender back Neurologic: Alert and oriented ?3, EXCEPTIONAL CHILDREN TEACHER is normal as tested, no gross motor deficit
[2024-03-04 08:24] LABS: Add Urine Microscopic? YES; Appearance Urine Clear (Clear); Bacteria Urine 3+ /hpf; Bilirubin Urine Negative (Negative); Blood Urine Negative (Negative); Color Urine Yellow (Yellow); Glucose Urine UA Negative (Negative); Ketones Urine Negative (Negative); Leukocyte Esterase Ur 2+ LEU/UL (Negative); Nitrate Urine Negative (Negative); Non Pathogenic Casts 0-2; Protein Urine Negative (Negative); RBC Urine 0-2 /hpf (0-2); Specific Grav Ur 1.015 (1.001-1.035); Squamous Epithelial Cell Urine None Seen /hpf (Few); WBC Urine 21-50 /hpf (0-3); pH Urine 6.5 (5.0-9.0)
[2024-03-04 09:05] LABS: Basophils Percent Auto 0.5 % (0.2-1.2); Eosinophils Absolute Auto 0.2 K/mm3 (0-0.3); Eosinophils Percent Auto 2.7 % (0-4.4); Hematocrit 42.7 % (42.0-52.0); Hemoglobin 14.1 g/dL (14.0-18.0); Immature Granulocyte Absolute 0.02 K/mm3 (0.00-0.031); Immature Granulocyte Percent A 0.3 % (0-0.5); Immature Platelet Fraction Pct 3.2 % (0.9-11.2); Lymphocytes Absolute Auto 1.24 K/mm3 (0.9-3.2); Lymphocytes Percent Auto 15.8 % (18.3-44.2); Mean Corpuscular Hemoglobin 30.2 pg (26-34); Mean Corpuscular Volume 91.4 fl (80-100); Mean Platelet Volume 10.1 fl (7.4-10.4); Monocytes Absolute Auto 0.6 K/mm3 (0.1-0.6); Monocytes Percent Auto 7.5 % (2.6-8.5); Neutrophils Absolute Auto 5.7 K/mm3 (1.3-6.7); Neutrophils Percent Auto 73.2 % (45.5-73.1); Platelet Count Result 126 k/mm3 (150-375); Red Blood Count 4.67 M/mm3 (4.6-6.20); Red Cell Distribution Width 13.8 % (11.5-14.5); White Blood Count 7.8 K/mm3 (4.5-10.0)
[2024-03-04 09:17] LABS: Alanine Aminotransferase 10 U/L (6-50); Albumin Level 3.5 g/dL (3.5-5.1); Alkaline Phosphatase 114 U/L (38-126); Anion Gap 4 mmol/L (4-12); Aspartate Amino Transferase 17 U/L (17-59); Bilirubin,Total 1.1 mg/dL (0.2-1.3); Blood Urea Nitrogen 15 mg/dL (9-20); Calcium 8.3 mg/dL (8.4-10.2); Carbon Dioxide 27 mmol/L (22-30); Chloride 106 mmol/L (98-107); Estimated Glomerular Filt Rate > 60; Glucose 94 mg/dL (65-110); Sodium 137 mmol/L (137-145)
[2024-03-04] MEDS: TETANUS,DIPHTHERIA,AC PERTUSSIS ADULT (0.5 ML) BOOSTRIX IM (10:32)
== END 2024-03-04 12:35 | disposition home or self-care (01) ==
PROVIDERS: Emergency Provider Emergency Medicine
DX: S00.83XA Contusion of other part of head, initial encounter (principal); S01.21XA Laceration without foreign body of nose, initial encounter; S01.511A Laceration without foreign body of lip, initial encounter; S61.401A Unspecified open wound of right hand, initial encounter; S51.801A Unspecified open wound of right forearm, initial encounter; N39.0 Urinary tract infection, site not specified; Z23 Encounter for immunization; I11.9 Hypertensive heart disease without heart failure; E78.5 Hyperlipidemia, unspecified; G47.33 Obstructive sleep apnea (adult) (pediatric); G62.9 Polyneuropathy, unspecified; Z66 Do not resuscitate; Z85.828 Personal history of other malignant neoplasm of skin; Z87.891 Personal history of nicotine dependence; W18.39XA Other fall on same level, initial encounter
CPT/HCPCS: 36415; 70450; 70486; 72125; 80053; 81001; 85025; 85055; 87086; 90471; 90715; 96365; 96366; 99284; J0696

== ENCOUNTER 2024-05-07 14:16 | Emergency (ER) | payer MEDICARE, SELFPAY ==
[2024-05-07 14:26] VITALS: BP 114/65; PULSE 58; RESP 18; TEMP 36.2; O2SAT 98
--- NOTE | 2024-05-07 17:21 | ECG_ITS ---
Test Date: 2024-05-07 17:58:29 Measurements Intervals Lee Rate: 51 P: 1 OK: 190 QRS: -28 QRSD: 101 T: 38 QT: 426 QTc: 392 Interpretive Statements SINUS BRADYCARDIA BORDERLINE LEFT AXIS DEVIATION [QRS AXIS < -20] LOW QRS VOLTAGE IN PRECORDIAL LEADS [QRS DEFLECTION < 1.0 mV IN CHEST LEADS] Compared to ECG 02/12/2024 10:29:16 NO SIGNIFICANT CHANGES Electronically Signed On 05-08-2024 15:04:32 PRINCIPAL ARCHITECT by Cindi Fine M.D.
--- NOTE | 2024-05-07 17:24 | ED_ITS ---
HPI - Weakness General Chief complaint: Weakness <Salena Ludwig APRN - Last Filed: 05/07/24 17:42> Stated complaint: leg numbness/weakness <Salena Ludwig APRN - Last Filed: 05/07/24 17:42> Time Seen by Provider: 05/07/24 17:15 <Salena Ludwig APRN - Last Filed: 05/07/24 17:42> Focused HPI: Patient is 83-year-old male who presents to the ER with lower back pain (R more than L), and an increased temperature today. He reports he has had back pain for months and has neuropathy, but today his back pain is bringing me to tears. Patient reports he lives in assisted living and says I am not sure what they give me for pain medicine. He denies urinary symptoms, chest pain, or shortness of breath. GENERAL: Well-appearing, well-nourished, and in no acute distress. HEAD: Normocephalic, atraumatic. CHEST: Clear to auscultation. ?No respiratory distress. HEART: Bradycardia, regular rhythm. NEURO: ?Alert and oriented x3. Patient screened in triage and initial orders placed.? ?Additional care and disposition to be based upon?diagnostic testing and treatment. <Salena Ludwig APRN - Last Filed: 05/07/24 17:42> History of Present Illness HPI Narrative: Agree with above <Cari Moss MD - Last Filed: 05/07/24 19:53> Related Data Home medications: Home Medications Medication Instructions Recorded Confirmed cholecalciferol (vitamin D3) 50 50 mcg PO DAILY 05/23/20 02/23/24 mcg (2,000 unit) capsule zinc 50 mg tablet 50 mg PO DAILY 05/23/20 02/23/24 dietary supplement See Rx Instructions .Route .COMPLEX 03/10/21 02/23/24 <Salena Ludwig APRN - Last Filed: 05/07/24 17:42> Allergies/Adverse reactions: Allergies Allergy/AdvReac Type Severity Reaction Status Date / Time amlodipine Allergy Intermediate HIVES, Verified 03/04/24 04:30 ITCHING hydrochlorothiazide Allergy Unknown RASH & Verified 03/04/24 04:30 ITCHING valsartan Allergy Unknown Hives Verified 03/04/24 04:30 <Salena Ludwig, W[employer] SKI ASSEMBLER - Last Filed: 05/07/24 17:42> Review of Systems Review of Systems: All systems reviewed & are unremarkable except as noted in HPI and below <Cari Moss MD - Last Filed: 05/07/24 19:53> [facility] Past Medical History Medical History: Medical History Basal cell carcinoma of skin Chronic back pain Dyslipidemia Essential hypertension Left ventricular diastolic dysfunction, NYHA class 1 Neuropathy Obstructive sleep apnea <Salena Ludwig, WATER [employer]I ASSEMBLER - Last Filed: 05/07/24 17:42> Surgical History Surgical History: Surgical History History of basal cell carcinoma excision jaw History of tonsillectomy <Salena Ludwig APRN - Last Filed: 05/07/24 17:42> Family History Family History: Family History Father Hypertension, Onset Age: 88 <Salena Ludwig APRN - Last Filed: 05/07/24 17:42> Social History Social History: Social History Social History: Patient wishes to be DNR and his POA is Miguel Boggs who lives in [place]. Smoking packs per day: 0.5 Smoking cigarettes per day: 10.0 Years smoked: 2 Smoking pack-years: 1.00 Smoking status: Former smoker Tobacco type: cigarettes Second hand tobacco smoke exposure: No Smoking end date: 06/06/1960 Alcohol intake: current Drinks per week: 1 Alcohol use details: a glass a wine Substance use: never Substance use type: does not use Do You Feel Safe in your Home?: Yes Lack of Transportation: No Lack of Food: Never True Current Housing: I Have Housing Concerned About Future Housing: No Difficulty Paying Gas/Electric Bills: No Difficulty Paying for Meds: No Currently Unemployed: No Education: Master's Degree or Higher Difficulty w/ Childcare or Family Care: No Living arrangements: assisted living Additional living arrangements comments: . Lives at [facility]. Occupation/Education: retired Additional occupation/education comments: [employer] Spiritual care concerns: No Agree to blood products: Yes <Salena Ludwig, WATER SKI ASSEMBLER - Last Filed: 05/07/24 17:42> Exam Narrative: GENERAL: Frail, chronically ill-appearing, in no acute distress HEAD: Normocephalic, atraumatic. EYES: PERRLA and EOMI. ENT: Mucous membranes moist. NECK: Supple. CHEST: No respiratory distress. HEART: Regular rate and rhythm ABDOMEN: Soft, nontender, nondistended EXTREMITIES: Normal range of motion. No edema. SKIN: Warm, dry, no rash. NEURO: No focal deficits. Alert and oriented x3. PSYCH: Normal mood and affect. <Cari Moss MD - Last Filed: 05/07/24 19:53> Course Vital Signs Vital signs: Vital Signs Temperature 97.1 F L 05/07/24 14:26 Pulse Rate 58 L 05/07/24 14:26 Respiratory Rate 18 05/07/24 14:26 Blood Pressure 114/65 05/07/24 14:26 Pulse Oximetry 98 05/07/24 14:26 Oxygen Delivery Room Air 05/07/24 14:26 Temperature 97.1 F L 05/07/24 14:26 Pulse Rate 58 L 05/07/24 14:26 Respiratory Rate 18 05/07/24 14:26 Blood Pressure 114/65 05/07/24 14:26 Pulse Oximetry 98 05/07/24 14:26 Oxygen Delivery Room Air 05/07/24 14:26 <Salena Ludwig, WATER SKI ASSEMBLER - Last Filed: 05/07/24 17:42> Vital Signs Temperature 97.1 F L 05/07/24 14:26 Pulse Rate 58 L 05/07/24 14:26 Respiratory Rate 18 05/07/24 14:26 Blood Pressure 114/65 05/07/24 14:26 Pulse Oximetry 98 05/07/24 14:26 Oxygen Delivery Room Air 05/07/24 14:26 Temperature 97.1 F L 05/07/24 14:26 Pulse Rate 58 L 05/07/24 14:26 Respiratory Rate 18 12/02/24 14:26 Blood Pressure 114/65 05/07/24 14:26 Pulse Oximetry 98 05/07/24 14:26 Oxygen Delivery Room Air 05/07/24 14:26 <Cari Moss MD - Last Filed: 05/07/24 19:53> MDM - Weakness MDM Narrative Medical decision making narrative: 83-year-old male presenting with worsening neuropathy symptoms. Vitals are stable. Exam remarkable for the above. EKG per my interpretation shows sinus bradycardia, no ST elevations or depressions. States that he has been dealing with neuropathy for the last several months. He was placed on gabapentin 100 mg at night several months ago which helped for awhile but he states that he feels like it is less effective now. He has tried to see his PCP but they have not been able to get him in. He is concerned that his chronic pain is poorly controlled. States that he uses Tylenol and it does not seem to help much. Blood work is unremarkable. UA is unremarkable. Troponin is undetectable. Lactic acid is normal. Negative for COVID, RSV, flu. Discussed the reassuring workup with the patient. He is concerned that his chronic pain is poorly controlled. I reviewed his medication list and it appears he takes 100 mg gabapentin at night and 220 mg of naproxen in the morni ng. We have room to go up on both of these. Will start him on 100 mg gabapentin b.i.d. and 500 mg naproxen b.i.d.. Discussed with him the importance of following up with PCP. Appropriate return precautions given. Discharged in stable condition. <Cari Moss MD - Last Filed: 05/07/24 19:53> Lab Data Result diagrams: 05/07/24 18:06 05/07/24 18:06 <Salena Ludwig APRN - Last Filed: 05/07/24 17:42> Labs: Lab Results 05/07/24 05/07/24 Range/Units 18:06 18:21 WBC 7.4 (4.5-10.0) K/mm3 RBC 4.93 (4.6-6.20) M/mm3 Hgb 14.9 (14.0-18.0) g/dL Hct 44.8 (42.0-52.0) % MCV 90.9 (80-100) fl MCH 30.2 (26-34) pg MCHC 33.3 (32-36) g/dl RDW 13.8 (11.5-14.5) % Plt Count 129 L (150-375) k/mm3 MPV 10.1 (7.4-10.4) fl Immature Gran % (Auto) 0.3 (0-0.5) % Neut % (Auto) 68.6 (45.5-73.1) % Lymph % (Auto) 19.0 (18.3-44.2) % Richardson % (Auto) 8.0 (2.6-8.5) % Eos % (Auto) 3.4 (0-4.4) % Baso % (Auto) 0.7 (0.2-1.2) % Lymph # (Auto) 1.41 (0.9-3.2) K/mm3 Richardson # (Auto) 0.6 (0.1-0.6) K/mm3 Eos # (Auto) 0.3 (0-0.3) K/mm3 Baso # (Auto) 0.1 (0.0-0.1) K/mm3 Abs Immat Gran (auto) 0.02 (0.00-0.031) K/mm3 Absolute Neuts (auto) 5.1 (1.3-6.7) K/mm3 Absolute Nucleated RBC 0.000 (0.0-0.012) K/mm3 Nucleated RBC % 0.0 (0.0-0.2) % % Immature Plt Fraction 3.8 (0.9-11.2) % PT 14.6 (11.1-14.7) Seconds INR 1.1 APTT 25.4 (22.3-36.8) Seconds Sodium 137 (137-145) mmol/L Potassium 4.5 (3.4-5.0) mmol/L Chloride 107 (98-107) mmol/L Carbon Dioxide 26 (22-30) mmol/L Anion Gap 4 (4-12) mmol/L BUN 27 H D (9-20) mg/dL Creatinine 1.00 (0.7-1.3) mg/dL Estim Creat Clear Calc 55 ml/min Estimated GFR > 60 (59 - ) Glucose 99 (65-110) mg/dL Lactic Acid 1.2 (0.7-2.0) mmol/L Calcium 8.5 (8.4-10.2) mg/dL Total Bilirubin 0.8 (0.2-1.3) mg/dL AST 18 (17-59) U/L ALT 10 (6-50) U/L Alkaline Phosphatase 70 (38-126) U/L Troponin I < 0.012 (0.000-0.034) ng/mL Total Protein 6.0 L (6.3-8.2) g/dL Albumin 3.9 (3.5-5.1) g/dL Urine Color Yellow (Yellow) Urine Appearance Clear (Clear) Urine pH 6.0 (5.0-9.0) Ur Specific [place] 1.017 (1.001-1.035) Urine Protein Negative (Negative) mg/dL Urine Glucose (UA) Negative (Negative) mg/dL Urine Ketones Negative (Negative) mg/dL Ur Blood (Man) Negative (Negative) Urine Nitrate Negative (Negative) Urine Bilirubin Negative (Negative) Urine Urobilinogen 1.0 (<2.0) mg/dL Leukocyte Esterase Rfl Negative (Negative) BILLIE/UL Influenza A (RT-PCR) Negative (Negative) Influenza B (RT-PCR) Negative (Negative) RSV (RT-PCR) Negative (Negative) SARS-CoV-2 RNA (RT-PCR) Negative (Negative) <Salena Ludwig, WATER SKI ASSEMBLER - Last Filed: 05/07/24 17:42> Lab Results 05/07/24 05/07/24 Range/Units 18:06 18:21 WBC 7.4 (4.5-10.0) K/mm3 RBC 4.93 (4.6-6.20) M/mm3 Hgb 14.9 (14.0-18.0) g/dL Hct 44.8 (42.0-52.0) % MCV 90.9 (80-100) fl MCH 30.2 (26-34) pg MCHC 33.3 (32-36) g/dl RDW 13.8 (11.5-14.5) % Plt Count 129 L (150-375) k/mm3 MPV 10.1 (7.4-10.4) fl Immature Gran % (Auto) 0.3 (0-0.5) % Neut % (Auto) 68.6 (45.5-73.1) % Lymph % (Auto) 19.0 (18.3-44.2) % Richardson % (Auto) 8.0 (2.6-8.5) % Eos % (Auto) 3.4 (0-4.4) % Baso % (Auto) 0.7 (0.2-1.2) % Lymph # (Auto) 1.41 (0.9-3.2) K/mm3 Richardson # (Auto) 0.6 (0.1-0.6) K/mm3 Eos # (Auto) 0.3 (0-0.3) K/mm3 Baso # (Auto) 0.1 (0.0-0.1) K/mm3 Abs Immat Gran (auto) 0.02 (0.00-0.031) K/mm3 Absolute Neuts (auto) 5.1 (1.3-6.7) K/mm3 Absolute Nucleated RBC 0.000 (0.0-0.012) K/mm3 Nucleated RBC % 0.0 (0.0-0.2) % % Immature Plt Fraction 3.8 (0.9-11.2) % PT 14.6 (11.1-14.7) Seconds INR 1.1 APTT 25.4 (22.3-36.8) Seconds Sodium 137 (137-145) mmol/L Potassium 4.5 (3.4-5.0) mmol/L Chloride 107 (98-107) mmol/L Carbon Dioxide 26 (22-30) mmol/L Anion Gap 4 (4-12) mmol/L BUN 27 H D (9-20) mg/dL Creatinine 1.00 (0.7-1.3) mg/dL Estim Creat Clear Calc 55 ml/min Estimated GFR > 60 (59 - ) Glucose 99 (65-110) mg/dL Lactic Acid 1.2 (0.7-2.0) mmol/L Calcium 8.5 (8.4-10.2) mg/dL Total Bilirubin 0.8 (0.2-1.3) mg/dL AST 18 (17-59) U/L ALT 10 (6-50) U/L Alkaline Phosphatase 70 (38-126) U/L Troponin I < 0.012 (0.000-0.034) ng/mL Total Protein 6.0 L (6.3-8.2) g/dL Albumin 3.9 (3.5-5.1) g/dL Urine Color Yellow (Yellow) Urine Appearance Clear (Clear) Urine pH 6.0 (5.0-9.0) Ur Specific [place] 1.017 (1.001-1.035) Urine Protein Negative (Negative) mg/dL Urine Glucose (UA) Negative (Negative) mg/dL Urine Ketones Negative (Negative) mg/dL Ur Blood (Man) Negative (Negative) Urine Nitrate Negative (Negative) Urine Bilirubin Negative (Negative) Urine Urobilinogen 1.0 (<2.0) mg/dL Leukocyte Esterase Rfl Negative (Negative) BILLIE/UL Influenza A (RT-PCR) Negative (Negative) Influenza B (RT-PCR) Negative (Negative) RSV (RT-PCR) Negative (Negative) SARS-CoV-2 RNA (RT-PCR) Negative (Negative) <Cari Moss MD - Last Filed: 05/07/24 19:53> Critical Care Time Critical Care Time Critical Care Time: No <Cari Moss MD - Last Filed: 05/07/24 19:53> Discharge Plan Discharge Clinical Impression: Neuropathy, Back pain, Generalized weakness <Salena Ludwig APRN - Last Filed: 05/07/24 17:42> Patient Disposition: NH Snf/Asst Living <Salena Ludwig APRN - Last Filed: 05/07/24 17:42> Condition: Stable <Salena Ludwig APRN - Last Filed: 05/07/24 17:42> Instructions: Antibiotic Form, Peripheral Neuropathy (ED), Back Pain (ED) <Salena Ludwig APRN - Last Filed: 05/07/24 17:42> Additional Instructions: The blood work today is reassuring. We have increased your pain medicati ons to help with your chronic pain. Please take these as prescribed. It is important that you follow-up closely with primary care. If your symptoms worsen or other concerning symptoms arise, please return to the ER. <Salena Ludwig APRN - Last Filed: 05/07/24 17:42> Prescriptions: New gabapentin 100 mg capsule 100 mg PO BID Qty: 60 0RF naproxen 500 mg tablet 500 mg PO BID Qty: 60 0RF Discontinued gabapentin 100 mg capsule 100 mg PO DAILY Qty: 30 0RF Rx Instructions: take one tablet a day for 30 days and stop No Action dietary supplement Capsule See Rx Instructions .ROUTE .COMPLEX Patient Comments: CannaXL Hemp extract Rx Instructions: cap orally ;CannaXL Hemp extract zinc 50 mg tablet 50 mg PO DAILY cholecalciferol (vitamin D3) 50 mcg (2,000 unit) capsule 50 mcg PO DAILY polymyxin B sulf-trimethoprim 10,000 unit- 1 mg/mL drops 2 drp RIGHT EYE QID 5 Days Qty: 10 0RF Rx Instructions: while awake; do not exceed 6 doses in 24 hours ciprofloxacin HCl [Cipro] 500 mg tablet 500 mg PO Q12H Qty: 14 0RF losartan 100 mg tablet 100 mg PO DAILY Qty: 90 1RF finasteride [Proscar] 5 mg tablet 5 mg PO QAM Qty: 90 1RF atenolol 25 mg tablet 25 mg PO DAILY Qty: 90 1RF clonidine HCl 0.1 mg tablet 0.1 mg PO DAILY PRN (Reason: hypertensive emergency) 90 Days Qty: 90 1RF Rx Instructions: If Systolic BP is over 150 tamsulosin 0.4 mg capsule See Rx Instructions .ROUTE .COMPLEX Qty: 90 1RF Dose Instruction: TAKE ONE CAPSULE BY MOUTH ONCE DAILY Patient Comments: Pt. states he takes at night Rx Instructions: TAKE ONE CAPSULE BY MOUTH ONCE DAILY <Salena Ludwig APRN - Last Filed: 05/07/24 17:42> Follow-up/Referrals: Bay Fuentes MD [Physician] - <Salena Ludwig APRN - Last Filed: 05/07/24 17:42>
[2024-05-07 18:23] LABS: Basophils Absolute Auto 0.1 K/mm3 (0.0-0.1); Basophils Percent Auto 0.7 % (0.2-1.2); Eosinophils Absolute Auto 0.3 K/mm3 (0-0.3); Eosinophils Percent Auto 3.4 % (0-4.4); Hematocrit 44.8 % (42.0-52.0); Hemoglobin 14.9 g/dL (14.0-18.0); Immature Granulocyte Absolute 0.02 K/mm3 (0.00-0.031); Immature Granulocyte Percent A 0.3 % (0-0.5); Immature Platelet Fraction Pct 3.8 % (0.9-11.2); Lymphocytes Absolute Auto 1.41 K/mm3 (0.9-3.2); Mean Corpuscular HGB Conc 33.3 g/dl (32-36); Mean Corpuscular Hemoglobin 30.2 pg (26-34); Mean Corpuscular Volume 90.9 fl (80-100); Mean Platelet Volume 10.1 fl (7.4-10.4); Monocytes Absolute Auto 0.6 K/mm3 (0.1-0.6); Neutrophils Absolute Auto 5.1 K/mm3 (1.3-6.7); Neutrophils Percent Auto 68.6 % (45.5-73.1); Platelet Count Result 129 k/mm3 (150-375); Red Blood Count 4.93 M/mm3 (4.6-6.20); Red Cell Distribution Width 13.8 % (11.5-14.5); White Blood Count 7.4 K/mm3 (4.5-10.0)
[2024-05-07 18:33] LABS: Alanine Aminotransferase 10 U/L (6-50); Albumin Level 3.9 g/dL (3.5-5.1); Alkaline Phosphatase 70 U/L (38-126); Anion Gap 4 mmol/L (4-12); Aspartate Amino Transferase 18 U/L (17-59); Bilirubin,Total 0.8 mg/dL (0.2-1.3); Blood Urea Nitrogen 27 mg/dL (9-20); Calcium 8.5 mg/dL (8.4-10.2); Carbon Dioxide 26 mmol/L (22-30); Chloride 107 mmol/L (98-107); Estimated CRCL calculation 55 ml/min; Estimated Glomerular Filt Rate > 60; Glucose 99 mg/dL (65-110); Lactic Acid Reflex 1.2 mmol/L (0.7-2.0); Potassium 4.5 mmol/L (3.4-5.0); Sodium 137 mmol/L (137-145)
[2024-05-07 18:36] LABS: INR 1.1; Partial Thromboplastin Time 25.4 Seconds (22.3-36.8); Prothrombin Time 14.6 Seconds (11.1-14.7)
[2024-05-07 18:44] LABS: Troponin I < 0.012 ng/mL (0.000-0.034)
[2024-05-07 18:52] LABS: Add Urine Microscopic? NO; Appearance Urine Clear (Clear); Bilirubin Urine Negative (Negative); Blood Urine Negative (Negative); Color Urine Yellow (Yellow); Glucose Urine UA Negative (Negative); Ketones Urine Negative (Negative); Leukocyte Esterase Ur Negative LEU/UL (Negative); Nitrate Urine Negative (Negative); Protein Urine Negative (Negative); Specific Grav Ur 1.017 (1.001-1.035)
[2024-05-07 19:01] LABS: Influenza A QL RT-PCR Negative (Negative); Influenza B QL RT-PCR Negative (Negative); RSV RNA, RT-PCR Negative (Negative); SARS-CoV-2 RNA PCR Negative (Negative)
--- NOTE | 2024-05-07 20:06 | PC.NURSE ---
Called all patient contacts and [facility]. All contacts are unable to provided transportation back home. Ambulance requested.
[2024-05-07 20:10] VITALS: BP 131/89; PULSE 62; RESP 14; O2SAT 97
[2024-05-07] MEDS: NAPROXEN 500 MG TABLET PO (20:23)
[2024-05-07] MEDS: GABAPENTIN 100 MG CAPSULE PO (20:23)
--- NOTE | 2024-05-07 23:12 | PC.NURSE ---
Assumed care of pt from HUONG O[place]illy at this time.
[2024-05-08 01:21] VITALS: BP 129/82; PULSE 62; RESP 16; O2SAT 98
== END 2024-05-08 01:22 ==
PROVIDERS: Registered Nurse; Emergency Provider Emergency Medicine
DX: G62.9 Polyneuropathy, unspecified (principal); M54.50 Low back pain, unspecified; R53.1 Weakness; E78.5 Hyperlipidemia, unspecified; G47.33 Obstructive sleep apnea (adult) (pediatric); G89.29 Other chronic pain; I50.30 Unspecified diastolic (congestive) heart failure; I11.0 Hypertensive heart disease with heart failure; Z87.891 Personal history of nicotine dependence; Z20.822 Contact with and (suspected) exposure to COVID-19
CPT/HCPCS: 36415; 80053; 81003; 83605; 84484; 85025; 85055; 85610; 85730; 87637; 93005; 99284; A9270

== ENCOUNTER 2024-07-04 02:05 | Emergency (ER) | payer MEDICARE, SELFPAY ==
[2024-07-04] VITALS (11 sets, daily range): BP systolic 101–138; BP diastolic 58–78; PULSE 47–56; RESP 11–19; TEMP 36.3; O2SAT 97–100
--- NOTE | ~2024-07-04 | CT_ITS ---
EXAMINATION: CT lumbar spine wo con DATE: 07/04/2024 02:50 INDICATION: Frequent falls. Back pain. TECHNIQUE: Computed tomography (CT) of the lumbar spine was performed without intravenous contrast. Poornima shane dose-length product was 1141.92 mGy-cm. Automated exposure control and iterative reconstruction te marcque were employed. COMPARISON: CT abdomen dated 11/26/2021 FINDINGS: There is a new superior endplate compression fracture of L2 which was not seen on prior brinda dy. There is associated vacuum phenomena at this level. There is approximately 30% loss of vertebral body height ventral left aspect of the endplate. There is disc narrowing at L3-4, L4-5 and L5-S1. The re is atherosclerosis. There is multilevel facet hypertrophy. There is left-sided spondylolysis at L5 . IMPRESSION: 1. Age-indeterminate superior endplate compression fracture of L2, new compared with CT dated 11/27/19 22. 2: Severe lumbar spondylosis. Reviewed, dictated and finalized at location A. SS REGISTRAR IMPRESSION: 1. Age-indeterminate superior endplate compression fracture of L2, new compared with CT dated 11/26/2021. 2: Severe lumbar spondylosis.
--- NOTE | ~2024-07-04 | XR_ITS ---
EXAMINATION: XR chest 2V 07/04/2024 02:40 INDICATION: Weakness. PROCEDURE: 2 view chest COMPARISON: 02/12/2024 FINDINGS: The lungs are clear. The cardiomediastinal silhouette is within normal limits. There are no pleural effusions. There is no pneumothorax suspected. IMPRESSION: 1: NO ACUTE CARDIOPULMONARY DISEASE. Reviewed, dictated and finalized at location A. ING UTILITY WORKER
--- NOTE | ~2024-07-04 | XR_ITS ---
XR hand RT min 3V 07/04/2024 02:40 Indication: Fall. Procedure: 3 views right hand Comparison: No prior studies for comparison. Findings: Osteopenia. Mild osteoarthritis of the interphalangeal joints. No fracture or traumatic mal alignment. No foreign bodies. Impression: 1: No acute bone or joint abnormality. Reviewed, dictated and finalized at location A. ER SANDER Impression: 1: No acute bone or joint abnormality.
--- NOTE | ~2024-07-04 | CT_ITS ---
EXAMINATION: CT cervical spine wo con DATE: 07/04/2024 02:50 INDICATION: Neck pain after fall TECHNIQUE: Computed tomography (CT) of the cervical spine was performed without intravenous contrast. The dose-length product was 220.64 mGy-cm. Automated exposure control and iterative reconstruction t echnique were employed. COMPARISON: CT dated 03/04/2024 FINDINGS: There is levoscoliosis. Odontoid process is normal. Craniovertebral junction within normal limits. No evidence for perched facet. No spinous process fracture. Lung apices are unremarkable. The re is intracranial atherosclerosis. Mastoids are pneumatized. No paraspinal soft tissue abnormality. IMPRESSION: 1. No acute abnormality of the cervical spine. Reviewed, dictated and finalized at location A. PRESS OPERATOR
--- NOTE | ~2024-07-04 | CT_ITS ---
EXAMINATION: CT brain wo con DATE: 07/04/2024 02:50 INDICATION: Status post fall. Head trauma. TECHNIQUE: Computed tomography (CT) of the head was performed without intravenous contrast. The dose- length product was 832.33 mGy-cm. Automated exposure control and iterative reconstruction technique w ere employed. COMPARISON: CT dated 03/04/2024 FINDINGS: There is a small left subdural hematoma measuring up to 4 mm transverse on coronal images. Possible small age-indeterminate right subdural hematoma, new compared with prior CT. Generalized atr ophy. No ventriculomegaly or midline shift. Basilar cisterns are patent. Paranasal sinuses and mastoi ds are pneumatized. No depressed skull fractures. IMPRESSION: 1. Small left subdural hematoma in the parietal location measuring 4 mm transverse on coronal images. 2: Possible small right subdural hematoma in the parietal region. Reviewed, dictated and finalized at location A. R PILOT IMPRESSION: 1. Small left subdural hematoma in the parietal location measuring 4 mm transve rse on coronal images. 2: Possible small right subdural hematoma in the parietal region.
--- OUTSIDE RECORDS SUMMARY | 2024-07-04 02:08 | XMS_ITS | Encounter Summary ---
Author Organization [facility] Address 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
--- OUTSIDE RECORDS SUMMARY | 2024-07-04 02:08 | XMS_ITS | Encounter Summary ---
Author Organization [facility] Address [address] [place] [address] Care Team Providers Care Crew Person Name Role Phone Jeremy Carreon MD Primary Care Provider [phone] Encounter Details Date Type Department Care Team (Latest Contact Info) Description 03/17/2005 Outpatient Historical [facility] SINAI Boyd, MD Aristeo [address] 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 Gender Identity Not on file Sexual Orientation Not on file documented as of this encounter Plan of Treatment Not on file documented as of this encounter Procedures Procedure Name Priority Date/Time Associated Diagnosis Comments URINALYSIS W/REFLEX MICROSCOPIC Routine 03/17/2005 9:46 AM CDT CBC WITH DIFFERENTIAL Routine 03/17/2005 9:40 AM CDT CBC WITH DIFFERENTIAL Routine 03/17/2005 9:40 AM CDT TSH Routine 03/17/2005 9:40 AM CDT PSA Routine 03/17/2005 9:40 AM CDT LIPID PANEL Routine 03/17/2005 9:40 AM CDT COMPREHENSIVE METABOLIC PANEL Routine 03/17/2005 9:40 AM CDT documented in this encounter Results * URINALYSIS (03/17/2005 9:46 AM CDT) COLOR UA Yellow INTERFACE SYSTEM CLARITY UA Clear Clear INTERFACE SYSTEM SPECIFIC GRAVITY UA 1.010 1.001 - 1.035 INTERFACE SYSTEM PH UA 7.0 5.0 - 8.0 INTERFACE SYSTEM LEUKOCYTE ESTERASE UA Negative Negative INTERFACE SYSTEM NITRITE UA Negative Negative INTERFACE SYSTEM PROTEIN UA Negative Negative INTERFACE SYSTEM GLUCOSE UA Negative Negative INTERFACE SYSTEM KETONES UA Negative Negative INTERFACE SYSTEM UROBILINOGEN UA <1 <1 mg/dL INTE RFACE SYSTEM BILIRUBIN UA Negative Negative INTERFA CE SYSTEM BLOOD UA Negative Negative INTERFACE SYSTEM 03/17/2005 9:46 AM CDT us Aristeo Boyd MD URINE ORDERABLES Final Result Performing Organization Address [facility] Phone Number INTERFACE SYSTEM Refer to clinic/hospital department * CBC WITH DIFFERENTIAL (03/17/2005 9:40 AM CDT) NEUTROPHILS 58 45 - 70 % INTERFAC E SYSTEM LYMPHOCYTES 28 16 - 45 % INTERFAC E SYSTEM MONOCYTES 9 3 - 13 % INTERFACE SYSTEM EOSINOPHILS 5 0 - 7 % INTERFAC E SYSTEM BASOPHILS 1 0 - 2 % INTERFACE SYSTEM NEUTROPHIL ABSOLUTE 5.92 1.90 - 7.00 K/uL INTERFACE SYSTEM LYMPHOCYTE ABSOLUTE 2.84 0.70 - 4.50 K/uL INTERFACE SYSTEM MONOCYTE ABSOLUTE 0.89 0.10 - 1.30 K/uL INTERFACE SYSTEM EOSINOPHIL ABSOLUTE 0.51 0.00 - 0.70 K/uL INTERFACE SYSTEM BASOPHILS ABSOLUTE 0.05 0.00 - 0.20 K/uL INTERFACE SYSTEM 03/17/2005 9:40 AM CDT us Aristeo Boyd MD HEMATOLOGY ORDERABLES Final Resu lt Performing Organization Address [facility] Co de Phone Number INTERFACE SYSTEM Refer to clinic/hospital department * (ABNORMAL) CBC WITH DIFFERENTIAL (03/17/2005 9:40 AM CDT) WBC 10.2(H) 4.0 - 9.8 K/uL INTERFACE SYSTEM RBC 5.61(H) 4.50 - 5.40 M/uL INTERFACE SYSTEM HEMOGLOBIN 17.2(H) 13.6 - 16.5 g/dL INTERFACE SYSTEM HEMATOCRIT 49.8(H) 40.0 - 48.0 % INTERFACE SYSTEM MCV 88.8 82.0 - 99.0 fL INTERFACE SYSTEM MCH 30.7 27.2 - 32.6 pg INTERFACE SYSTEM MCHC 34.5 31.5 - 35.5 % INTERFACE SYSTEM RDW 12.9 11.5 - 14.5 % INTERFACE SYSTEM RDW-STDEV 41.5 37.1 - 48.7 fL INTERFACE SYSTEM PLATELETS 172 140 - 350 K/uL INTERFACE SYSTEM MPV 11.5 9.3 - 12.4 fL INTERFACE SYSTEM 03/17/2005 9:40 AM CDT Aristeo Boyd MD HEMATOLOGY ORDERABLES Final Resu lt Performing Organization Address [facility] Phone Number INTERFACE SYSTEM Refer to clinic/hospital department * TSH (03/17/2005 9:40 AM CDT) TSH 1.96 0.27 - 4.20 uU/mL INTERFACE SYSTEM 03/17/2005 9:40 AM CDT Aristeo Boyd MD CHEMISTRY ORDERABLES Final Resul t Performing Organization Address [facility] Phone Number INTERFACE SYSTEM Refer to clinic/hospital department * PSA (03/17/2005 9:40 AM CDT) PSA 1.5 0.0 - 4.0 ng/mL INTERFACE SYSTEM Comment:Performed on [employer] M [employer] E170 System 03/17/2005 9:40 AM CDT Aristeo Boyd MD CHEMISTRY ORDERABLES Final Resul t Performing Organization Address [facility] Phone Number INTERFACE SYSTEM Refer to clinic/hospital department * (ABNORMAL) LIPID PANEL (03/17/2005 9:40 AM CDT) CHOLESTEROL 223(H) 100 - 199 mg/dL INTERFACE SYSTEM TRIGLYCERIDE 316(H) 10 - 149 mg/dL INTERFACE SYSTEM HDL 48 40 - 59 mg/dL INTERFACE SYSTEM LDL CALCULATED 112(H) <=99 mg/dL INTERFACE SYSTEM CHOL/HDL RATIO 4.6 2.0 - 5.0 INTER FACE SYSTEM Comment:See interpretive azra a section for risk classifications. LIPID PANEL COMMENT See below INTERFACE SYSTEM Comment: Adult ATP III Classifications: Cholesterol (mg/dL) ? Triglyceride (mg/dL) Desirable ? <200 ? Normal ? <150 ?? Borderline ? 200 - 239 ?? Borderline High ? 150 - 199 High ? >=240 ? High ?200 - 499 ? Very High ? >=500 ?? HDL Cholesterol (mg/dL) ? LDL (mg/dL) Low ??(increased risk) <40 ?Optimal ? <100 ?? High (reduced risk) ??>=60 ?Near or above optimal ??100 - 129 ? Borderline ? 130 - 159 ? High ? 160 - 189 ? Very High ?>=190 LDL calculation is not accurate if Triglycerides are greater than 400 mg /dL Pediatric NCEP Classifications: Cholesterol(<20 years),(mg/dL) ?Triglyceride Desirable ?<170 ?Pediatric classification Borderline ?170 - 199 ?not defined. High >=200 ? HDL (<5 years) ? LDL (mg/dL) No Reference Range Established ?Desirable ?<110 ?Borderline ?110 - 129 ?High ?>=130 03/17/2005 9:40 AM CDT us Aristeo Boyd MD CHEMISTRY ORDERABLES Final Resul t INTERFACE SYSTEM Refer to clinic/hospital department * COMPREHENSIVE METABOLIC PANEL (03/17/2005 9:40 AM CDT) GLUCOSE 99 65 - 109 mg/dL INTERFACE SYSTEM CREATININE 1.2 0.5 - 1.3 mg/dL INTERFACE SYSTEM CALCIUM 8.9 8.6 - 10.2 mg/dL INTERFACE SYSTEM AST 23 12 - 38 U/L INTERFACE SYSTEM ALKALINE PHOSPHATASE 68 40 - 129 U/L INTERFACE SYSTEM BUN 19 6 - 20 mg/dL INTERFACE SYSTEM BILIRUBIN TOTAL 0.7 0.2 - 1.0 mg/dL INTERFACE SYSTEM ALBUMIN 4.2 3.4 - 4.8 g/dL INTERFACE SYSTEM TOTAL PROTEIN 6.4 6.3 - 8.6 g/dL INTERFACE SYSTEM ALT 32 0 - 41 U/L INTERFACE SYSTEM SODIUM 141 135 - 145 mmol/L INTERFACE SYSTEM POTASSIUM 4.8 3.5 - 4.9 mmol/L INTERFACE SYSTEM CHLORIDE 104 96 - 108 mmol/L INTERFACE SYSTEM CO2 26 22 - 30 mmol/L INTERFACE SYSTEM 03/17/2005 9:40 AM CDT us Aristeo Boyd MD CHEMISTRY ORDERABLES Final Resul t INTERFACE SYSTEM Refer to clinic/hospital department documented in this encounter Visit Diagnoses Diagnosis Unspecified essential hypertension- Primary documented in this encounter Care Teams Crew Person Relationship Specialty [place] [address] [place] [phone] PCP - General Internal Medicine 05/17/19 02/14/23 documented as of this encounter
--- OUTSIDE RECORDS SUMMARY | 2024-07-04 02:08 | XMS_ITS | Encounter Summary ---
Author Organization [facility] Address [address] 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
--- OUTSIDE RECORDS SUMMARY | 2024-07-04 02:08 | XMS_ITS | Clinical Summary ---
Author Organization [facility] Address [address] [place] [address] Phone Care Team Providers Care Pillowcase Sewer Name Role Phone Eric French MD Primary Care Provider [phone] Allergies Active Allergy Reactions Criticality Noted Date Comments Amlodipine Shortness of breath High 05/31/2019 Hydrochlorothiazide Hives High 05/31/2019 Medications Medication Sig Dispensed Refills Start Date End Date Status atenolol (TENORMIN) 25 MG tablet 11/14/2021 Active finasteride (PROSCAR) 5 MG tablet Take 5 mg by mouth 1 (one) time each day in the morning 12/22/2021 Active gabapentin (NEURONTIN) 100 MG capsule TAKE ONE CAPSULE BY MOUTH DAILY FOR 30 DAYS AND STOP 12/20/2021 Active tamsulosin (FLOMAX) 0.4 MG 24 hr capsule Take 0.4 mg by mouth daily Active cloNIDine (CATAPRES) 0.1 MG tablet Take 0.1 mg by mouth One tab prn high bp Active irbesartan (AVAPRO) 300 MG tablet 04/15/2022 Active furosemide (LASIX) 20 MG tablet Take 1 tablet (20 mg total) by mouth in the morning and 1 tablet (20 mg total) in the evening. 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 Immunizations Name Administration Dates Next Due Influenza Split High Dose Preservative Free IM 1 06/06/2021 Pneumococcal Conjugate 02/05/2012 Social History Tobacco Use Types Packs/Day Years Used Date Smoking Tobacco: Never Smokeless Tobacco: Never Alcohol Use Standard Drinks/Week Comments Not Currently 0 (1 standard drink = 0.6 oz pur e alcohol) Sex and Gender Information Value Date Recorded Sex Assigned at Not on file Gender Identity Not on file Sexual Orientation Not on file Last Filed Vital Signs Vital Sign Reading Time Taken Comments Blood Pressure 162/80 05/05/2022 2:40 PM SENIOR PRINCIPAL PROCESS ENGINEER Pulse 60 05/05/2022 2:40 PM SENIOR PRINCIPAL PROCESS ENGINEER Temperature 35.3 ??C (95.5 ??F) 05/05/2022 2:40 PM CS T Respiratory Rate - - Oxygen Saturation - - Inhaled Oxygen Concentration - - Weight 89.4 kg (197 lb) 05/05/2022 2:40 PM SENIOR PRINCIPAL PROCESS ENGINEER Height 182.9 cm (6') 05/05/2022 2:40 PM SENIOR PRINCIPAL PROCESS ENGINEER Body Mass Index 26.72 05/05/2022 2:40 PM SENIOR PRINCIPAL PROCESS ENGINEER Plan of Treatment Health Maintenance Due Date Last Done Comments Pneumococcal PPSV23/PCV13 65 + Years / High and Highest Risk (1 of 4 - PCV) 1946 Influenza Vaccine (#1) 2024 Care Teams Pillowcase Sewer Relationship Specialty Start Date End Date Eric French MD [address] [place] [id number] PCP - General Internal Medicine 05/05/22
--- OUTSIDE RECORDS SUMMARY | 2024-07-04 02:08 | XMS_ITS | Clinical Summary ---
Author Organization [facility] Selina beaulieu Haileyflorentin Address [address] [place] [address] Care Team Providers Care Drama Critic Name Role Phone Unavailable Primary Care Provider Unavailabl e Allergies Active Allergy Reactions Criticality Noted Date Comments Amlodipine Shortness of Breath/Wheezing High 019 Hydrochlorothiazide Hives High 05/31/2019 Medications atenolol (TENORMIN) 25 mg tablet Take 25 mg by mouth daily. Active tamsulosin (FLOMAX) 0.4 mg capsule Take 0.4 mg by mouth daily. Active spironolactone (ALDACTONE) 25 mg tablet Take 12.5 mg by mouth daily. 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 Gender Identity Not on file Sexual Orientation Not on file Last Filed Vital Signs Vital Sign Reading Time Taken Comments Blood Pressure 118/68 02/15/2023 9:53 AM CDT Pulse 51 02/15/2023 9:53 AM CDT Temperature 36.4 ??C (97.5 ??F) 02/15/2023 9:53 AM CD T Respiratory Rate 14 02/15/2023 9:53 AM CDT Oxygen Saturation 98% 02/15/2023 9:53 AM CDT Inhaled Oxygen Concentration - - Weight 81 kg (178 lb 9.6 oz) 02/15/2023 9:53 AM CDT Height 182.9 cm (6') 05/12/2021 2:31 PM ELECTRONIC DESIGN ENGINEER Body Mass Index 24.22 05/12/2021 2:31 PM ELECTRONIC DESIGN ENGINEER Plan of Treatment Health Maintenance Due Date Last Done Comments DTAP/TDAP/TD VACCINES (1 - Tdap) 1961 PNEUMOCOCCAL VACCINE 65+ YEA RS (1 of 1 - PCV) 1992 02/05/2012 ZOSTER VACCINE (1 of 2) 1992 RSV VACCINE (60+ or ) (1 - 1-dose 75+ series) 2017 INFLUENZA VACCINE (#1) 2024 04/06/2022, 2021 Insurance [employer] [facility] [facility] Address[address] [address]
--- OUTSIDE RECORDS SUMMARY | 2024-07-04 02:08 | XMS_ITS | Data Portability ---
Author Organization [place] - [facility], [employer] Address [address] [place] [address] Care Team Providers Care Preparatory Technician Name Role Phone MARK ANTHONY TORREZ Supervising Bailiff OMID CANALES Medical Administrative GLORIA SAUNDERS Executive Manager CHERY VACA Medical Oncologist [phone] MO CARMEN OTHER Assessment Encounter Date Assessment Date Assessment LastModified by Organization Details LastModified Time 02/21/2023 02/21/2023 Medication Changes DENIES obtained. Records requested. labs to eval levels refuses therapy. x-ray ordered to eval middle back pain to determine next course of action. Derm referral - he follows up with Dr. Saunders. He will need to contact to schedule. Signs and symptoms of when to seek further care reviewed with patient/caregive r/family/facilit y staff. Patient to follow up with primary care provider or return to clinic for any worsening signs and symptoms. Always present to ER or Urgent Care with any progression of/alarming symptoms, significant changes in symptoms or any concerning or urgent matters. Patient/caregive r/family/facilit y staff verbalized agreement and understanding of treatment plan. F/U 4 weeks, sooner if needed My total encounter time was 60 minutes which was spent in the activities documented in the note. This includes time spent prior to the visit, performing a medically appropriate examination with evaluation, and after the visit in direct care of the patient (history and exam; ordering prescriptions/la bs/imaging/home health/therapy/s pecialists; communicating results to patient and/or other relative individuals; counseling/educa ting patient; documenting clinical information in patient? s chart; coordination of care for the patient). This time does not include time spent in any separately reportable services. Not available 02/22/2023 17:13:20 03/21/2023 03/21/2023 Medication Changes PLTS low. Faxed over to hematology. Discussed results with patient. He is aware to contact Dr. Vaca. Taking Aleve daily which has been helping back pain. Neuropathy is not causing pain. Counseled that if should have burning and worsening pain could look at Lyrica or something to help with pain. Signs and symptoms of when to seek further care reviewed with patient/caregive r/family/facilit y staff. Patient to follow up with primary care provider or return to clinic for any worsening signs and symptoms. Always present to ER or Urgent Care with any progression of/alarming symptoms, significant changes in symptoms or any concerning or urgent matters. Patient/caregive r/family/facilit y staff verbalized agreement and understanding of treatment plan. F/U 12 weeks, sooner if needed Not available 03/21/2023 12:42:27 06/14/2023 06/14/2023 Medication Changes XR ordered to further evaluate pain and r/o possible fx, dislocation, or possible stenosis for r/t increasing weakness. labs to eval levels. Signs and symptoms of when to seek further care reviewed with patient/caregive r/family/facilit y staff. Patient to follow up with primary care provider or return to clinic for any worsening signs and symptoms. Always present to ER or Urgent Care with any progression of/alarming symptoms, significant changes in symptoms or any concerning or urgent matters. Patient/caregive r/family/facilit y staff verbalized agreement and understanding of treatment plan. F/U 12 weeks, sooner if needed [email or web address] Not available 06/14/2023 18:20:43 07/12/2023 07/12/2023 Medication Changes Having significant joint pain along with low back, hip pain. Having notable deficits with self-care and ADL. PT/OT ordered. Increased fall risk. Taking Naproxen BID for pain which has been helping. However, did discuss about NSAIDs and kidney function. Counseled on ensuring to drink appropriate fluid levels. 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 HTN controlled with medication but slightly elevated at visit d/t increasing pain. CLAUDIO controlled with the use of machine. Compliant with usage. Signs and symptoms of when to seek further care reviewed with patient/caregive r/family/facilit y staff. Patient to follow up with primary care provider or return to clinic for any worsening signs and symptoms. Always present to ER or Urgent Care with any progression of/alarming symptoms, significant changes in symptoms or any concerning or urgent matters. Patient/caregive r/family/facilit y staff verbalized agreement and understanding of treatment plan. F/U 12 weeks, sooner if needed [email or web address] Not available 07/13/2023 07:29:53 08/03/2023 08/03/2023 Medication Changes Just started with PT. He continues to have back pain, but mostly sedentary. Counseled on that working with PT to strengthen back muscles and f/u in 4 weeks to see if improvement in pain. Talked with Leganjelica regarding his LBP and strengthening those muscles to help. Massimo and I are concerned about his notable worsening gait and ambulation. Showing some Parkinson's characteristics, but also showing neuropathic gait symptoms. Will see how he does in 4 weeks with therapy if improvement with back pain. If not will look at possibly getting MRI to further evaluate to r/o possible spinal stenosis or other causative factor regarding his symptomatology. Massimo and I discussed walker situation and at this time they are in agreement that his current walker is sufficient and that trying something else could increase falls and related. Jamil and I discussed Naproxen 220 mg BID was fine to help with pain. Signs and symptoms of when to seek further care reviewed with patient/caregive r/family/facilit y staff. Patient to follow up with primary care provider or return to clinic for any worsening signs and symptoms. Always present to ER or Urgent Care with any progression of/alarming symptoms, significant changes in symptoms or any concerning or urgent matters. Patient/caregive r/family/facilit y staff verbalized agreement and understanding of treatment plan. F/U 4 weeks, sooner if needed My total encounter time was 60 minutes which was spent in the activities documented in the note. This includes time spent prior to the visit, performing a medically appropriate examination with evaluation, and after the visit in direct care of the patient (history and exam; ordering prescriptions/la bs/imaging/home health/therapy/s pecialists; communicating results to patient and/or other relative individuals; counseling/educa ting patient; documenting clinical information in patient? s chart; coordination of care for the patient). This time does not include time spent in any separately reportable services. [email or web address] Not available 08/04/2023 07:06:09 Plan of Treatment Reminders Order Date Submit Date Provider Last Modified By Organization Details Last Modified Time Details Appointments None recorded. Lab CMP, serum or plasma [address], [place], [address], 3 12:29:59 unlisted lab - complete blood count with auto diff* [address], [place], [address], 3 12:30:00 magnesium, serum or plasma [address], [place], [address], 3 12:29:59 unlisted lab - complete blood count with auto diff* [address], [place], [address], 4 13:42:47 CMP, serum or plasma [address], [place], [address], 4 13:42:48 magnesium, serum or plasma [address], [place], [address], 4 13:42:49 iron, serum [address], [place], [address], 4 13:42:49 vitamin B12, serum 2023 024 [facility], [address], [place], [address], 4 13:42:50 unlisted lab - folate 2023 024 K[facility], [address], [place], [address], 4 13:42:48 Referral dermatolog ist referral - Back of scalp 2022 023 [email or web address] [facility] [place], [address], [place], [address], 3 12:05:49 occupation al therapist referral 2023 024 ATHENAFAX [facility] [place], [address], [place], [address], 4 13:43:41 physical therapist referral 2023 024 ATHENAFAX [facility] [place], [address], [place], [address], 4 13:43:24 physical therapist referral 2023 024 ATHENAFAX [facility] [place], [address], [place], [address], 4 13:43:54 Procedures None recorded. Surgeries None recorded. Imaging XR, thoracic spine, 3 view 2022 023 [email or web address] [facility] ([facility] [place] [address], [place], [address], 3 19:33:44 XR, hip + pelvis, unilateral , 4 or more view 2023 024 [facility] ([facility] [place]), [address], [place], [address], 4 14:50:42 XR, sacrum + coccyx, 2 or more view [address] ([facility]), [address], [place], [address], 4 15:47:01 XR, lumbar spine, 2 view [address] ([facility]), [address], [place], [address], 4 15:47:13 Medication Orders None recorded. Patient TargetsNo targets recorded. Patient Instructions Encounter Date Encounter Id Patient Instructions Last Modified By Organization Details Last Modified Time 02/21/2023 [id number] care plan* Not available 02/04 16:44:58 Reason for Referral Executive Manager Referral for N eoplasm of uncertain behavior of skin Back of scalp Referring Physician: [facility]y [facility], Encounter Date: 02/21/2023 Physical Therapist Referral for Osteoarthritis of multiple joints Referring Physician: Cristy [facility], Encounter Date: 07/12/2023 Occupational Therapist Refer ral for Dressing-grooming self-care deficit Referring Physician: Cristy [facility], Encounter Date: 07/12/2023 Physical Therapist Referral for Low back pain Referring Physician: Cristy [facility], Encounter Date: 07/12/2023 Results Created Date Observation Date Name Description Value Unit Range Abnormal Flag Note LastModifiedBy Organization Detail LastModifiedTime 03/01/2003/01/2023 COMPL ETE BLOOD COUNT WITH AUTO DIFF* WBC 6.62 10E3/ uL 4.50-1 1.50 Not Available [facility] [address], [place], [address], 03/02/2023 12:21:36 09/26/20 23 03/01/2023 COMPL ETE BLOOD COUNT WITH AUTO DIFF* RBC 4.97 10E6/ uL 4.60-6 .00 Not Available [facility] [address], [place], [address], 03/02/2023 12:21:36 03/01/20 23 03/01/2023 COMPL ETE BLOOD COUNT WITH AUTO DIFF* HGB 15.4 g/dL 14.0-1 8.0 Not Available [facility] [address], [place], [address], 03/02/2023 12:21:36 03/01/20 23 03/01/2023 COMPL ETE BLOOD COUNT WITH AUTO DIFF* HCT 45.7 % 40.0-5 4.0 Not Available [facility] [address], [place], [address], 03/02/2023 12:21:36 03/01/20 23 03/01/2023 COMPL ETE BLOOD COUNT WITH AUTO DIFF* MCV 92 fL 80-100 Not Available [facility] [address], [place], [address], 03/02/2023 12:21:36 03/01/20 23 03/01/2023 COMPL ETE BLOOD COUNT WITH AUTO DIFF* MCH 31 pg 26-32 Not Available [facility] [address], [place], [address], 03/02/2023 12:21:36 03/01/20 23 03/01/2023 COMPL ETE BLOOD COUNT WITH AUTO DIFF* MCHC 34 g/dL 32-36 Not Available [facility] [address], [place], [address], 03/02/2023 12:21:36 03/01/20 23 03/01/2023 COMPL ETE BLOOD COUNT WITH AUTO DIFF* RDW 13.6 % 11.5-1 4.5 Not Available [facility] [address], [place], [address], 03/02/2023 12:21:36 03/01/20 23 03/01/2023 COMPL ETE BLOOD COUNT WITH AUTO DIFF* plt 136 10E3/ uL 150-45 0 low Not Available [facility] [address], [place], [address], 03/02/2023 12:21:36 03/01/20 23 03/01/2023 COMPL ETE BLOOD COUNT WITH AUTO DIFF* neut% 68.3 % 50.0-7 0.0 Not Available [facility] [address], [place], [address], 03/02/2023 12:21:36 03/01/20 23 03/01/2023 COMPL ETE BLOOD COUNT WITH AUTO DIFF* lymph% 22.1 % 18.0-4 2.0 Not Available [facility] [address], [place], [address], 03/02/2023 12:21:36 03/01/20 23 03/01/2023 COMPL ETE BLOOD COUNT WITH AUTO DIFF* mono% 5.9 % 2.0-11 .0 Not Available [facility] [address], [place], [address], 03/02/2023 12:21:36 03/01/20 23 03/01/2023 COMPL ETE BLOOD COUNT WITH AUTO DIFF* eos% 2.6 % 1.0-3. 0 Not Available [facility] [address], [place], [address], 03/02/2023 12:21:36 03/01/20 23 03/01/2023 COMPL ETE BLOOD COUNT WITH AUTO DIFF* baso% 0.8 % 0.0-2. 0 Not Available [facility] [address], [place], [address], 03/02/2023 12:21:36 03/01/20 23 03/01/2023 COMPL ETE BLOOD COUNT WITH AUTO DIFF* Ig% 0.3 % 0.0-0. 6 Not Available [facility] [address], [place], [address], 03/02/2023 12:21:36 03/01/20 23 03/01/2023 COMPL ETE BLOOD COUNT WITH AUTO DIFF* neut# 4.53 10E3/ uL 2.30-8 .10 Not Available [facility] [address], [place], [address], 03/02/2023 12:21:36 03/01/20 23 03/01/2023 COMPL ETE BLOOD COUNT WITH AUTO DIFF* lymph# 1.46 10E3/ uL 0.80-4 .80 Not Available [facility] [address], [place], [address], 03/02/2023 12:21:36 03/01/20 23 03/01/2023 COMPL ETE BLOOD COUNT WITH AUTO DIFF* mono# 0.39 10E3/ uL 0.45-1 .30 low Not Available [facility] [address], [place], [address], 03/02/2023 12:21:36 03/01/20 23 03/01/2023 COMPL ETE BLOOD COUNT WITH AUTO DIFF* eos# 0.17 10E3/ uL 0.00-[address] [facility] [address], [place], [address], 03/02/2023 12:21:36 03/01/20 23 03/01/2023 COMPL ETE BLOOD COUNT WITH AUTO DIFF* baso# 0.05 10E3/ uL 0.00-[address] [facility] [address], [place], [address], 03/02/2023 12:21:36 03/01/20 23 03/01/2023 COMPL ETE BLOOD COUNT WITH AUTO DIFF* Ig# 0.02 10E3/ uL 0.00-0 .09 Not Available [facility] [address], [place], [address], 03/02/2023 12:21:36 03/01/20 23 03/01/2023 COMPR EHENS DAVID METAB OLIC PANEL * glucose 101 mg/dL 70-99 high The Ameri can Diabe melody Assoc iatio n (ADA) recom mends the follo wing crite clark for the diagn osis of diabe melody: 1) Sympt oms of diabe melody and a rando m gluco se >200 mg/dL OR 2) Fasti ng gluco se >= 126 mg/dL on more than one occas ion. Impai red fasti ng gluco se (IFG) , a fasti ng gluco se betwe en 100 and 125 mg/dL , is defin ed by the ADA as a categ ory at risk for futur e diabe melody and cardi ovasc ular disea se (Pred iabet es). Not Available [facility] [address], [place], [address], 03/02/2023 12:21:37 03/01/20 23 03/01/2023 COMPR EHENS DAVID METAB OLIC PANEL * BUN 16 mg/dL 8-23 Not Available [facility] [address], [place], [address], 03/02/2023 12:21:37 03/01/20 23 03/01/2023 COMPR EHENS DAVID METAB OLIC PANEL * calcium 8.7 mg/dL 8.8-10 .2 low Not Available [facility] [address], [place], [address], 03/02/2023 12:21:37 03/01/20 23 03/01/2023 COMPR EHENS DAVID METAB OLIC PANEL * creatinine 1.14 mg/dL 0.80-1 .30 Not Available [facility] [address], [place], [address], 03/02/2023 12:21:37 03/01/20 23 03/01/2023 COMPR EHENS DAVID METAB OLIC PANEL * sodium 143 mmol/ L 136-14 5 Not Available [facility] [address], [place], [address], 03/02/2023 12:21:37 03/01/20 23 03/01/2023 COMPR EHENS DAVID METAB OLIC PANEL * potassium 4.5 mmol/ L 3.5-5. 1 Not Available [facility] [address], [place], [address], 03/02/2023 12:21:37 03/01/20 23 03/01/2023 COMPR EHENS DAVID METAB OLIC PANEL * chloride 106 mEq/L 98-107 Not Available [facility] [address], [place], [address], 03/02/2023 12:21:37 03/01/20 23 03/01/2023 COMPR EHENS DAVID METAB OLIC PANEL * carbon dioxide 28 mmol/ L 23-30 Not Available [facility] [address], [place], [address], 03/02/2023 12:21:37 03/01/20 23 03/01/2023 COMPR EHENS DAVID METAB OLIC PANEL * total protein 5.9 g/dL 6.2-8. 1 low Not Available [facility] [address], [place], [address], 03/02/2023 12:21:37 03/01/20 23 03/01/2023 COMPR EHENS DAVID METAB OLIC PANEL * albumin 3.7 g/dL 3.2-4. 6 Not Available [facility] [address], [place], [address], 03/02/2023 12:21:37 03/01/20 23 03/01/2023 COMPR EHENS DAVID METAB OLIC PANEL * globulin 2.2 g/dL 2.3-3. 4 low Not Available [facility] [address], [place], [address], 03/02/2023 12:21:37 03/01/20 23 03/01/2023 COMPR EHENS DAVID METAB OLIC PANEL * A/G ratio 1.7 g/dL 0.8-2. 0 Not Available [facility] [address], [place], [address], 03/02/2023 12:21:37 03/01/20 23 03/01/2023 COMPR EHENS DAVID METAB OLIC PANEL * alkaline phosphatase 80 U/L 30-120 Not Available [facility] [address], [place], [address], 03/02/2023 12:21:37 03/01/20 23 03/01/2023 COMPR EHENS DAVID METAB OLIC PANEL * ALT (SGPT) 17 U/L 13-40 Not Available [facility] [address], [place], [address], 03/02/2023 12:21:37 03/01/20 23 03/01/2023 COMPR EHENS DAVID METAB OLIC PANEL * AST (SGOT) 15 U/L 19-48 low Not Available [facility] [address], [place], [address], 03/02/2023 12:21:37 03/01/20 23 03/01/2023 COMPR EHENS DAVID METAB OLIC PANEL * bilirubin, total 0.79 mg/dL 0.20-1 .10 Not Available [facility] [address], [place], [address], 03/02/2023 12:21:37 03/01/20 23 03/01/2023 COMPR EHENS DAVID METAB OLIC PANEL * eGFR >60.00 mL/mi n/1.7 3m2 >60.00 The estim ated glome rular filtr ation rate (eGFR ) was deter mined using the 2020 CKD-E PI creat inine equat ion, which does not consi jay race as a facto r. This equat ion is for indiv idual s aged >=18 years with the resul t adjus altagracia to a body surfa ce area of 1.73 m2. This calcu latio n has been updat ed on labor atory repor ts effec tive 01/11 . Not Available [facility] [address], [place], [address], 03/02/2023 12:21:37 03/01/2003/01/2023 MAGNE SIUM* magnesium 2.00 mg/dL 1.60-2 .40 Not Available [facility] [address], [place], [address], 03/02/2023 12:21:37 06/23/19 24 06/23/2023 COMPL ETE BLOOD COUNT WITH AUTO DIFF* WBC 7.19 10E3/ uL 4.50-1 1.50 Not Available [facility] [address], [place], [address], 06/24/2023 13:42:47 06/23/19 24 06/23/2023 COMPL ETE BLOOD COUNT WITH AUTO DIFF* RBC 4.55 10E6/ uL 4.60-6 .00 low Not Available [facility] [address], [place], [address], 06/24/2023 13:42:47 06/23/19 24 06/23/2023 COMPL ETE BLOOD COUNT WITH AUTO DIFF* HGB 13.8 g/dL 14.0-1 8.0 low Not Available [facility] [address], [place], [address], 06/24/2023 13:42:47 06/23/19 24 06/23/2023 COMPL ETE BLOOD COUNT WITH AUTO DIFF* HCT 40.5 % 40.0-5 4.0 Not Available [facility] [address], [place], [address], 06/24/2023 13:42:47 06/23/19 24 06/23/2023 COMPL ETE BLOOD COUNT WITH AUTO DIFF* MCV 89 fL 80-100 Not Available [facility] [address], [place], [address], 06/24/2023 13:42:47 06/23/19 24 06/23/2023 COMPL ETE BLOOD COUNT WITH AUTO DIFF* MCH 30 pg 26-32 Not Available [facility] [address], [place], [address], 06/24/2023 13:42:47 06/23/19 24 06/23/2023 COMPL ETE BLOOD COUNT WITH AUTO DIFF* MCHC 34.1 g/dL 32.0-3 6.0 Not Available [facility] [address], [place], [address], 06/24/2023 13:42:47 06/23/19 24 06/23/2023 COMPL ETE BLOOD COUNT WITH AUTO DIFF* RDW 13.2 % 11.5-1 4.5 Not Available [facility] [address], [place], [address], 06/24/2023 13:42:47 06/23/19 24 06/23/2023 COMPL ETE BLOOD COUNT WITH AUTO DIFF* plt 129 10E3/ uL 150-45 0 low Not Available [facility] [address], [place], [address], 06/24/2023 13:42:47 06/23/19 24 06/23/2023 COMPL ETE BLOOD COUNT WITH AUTO DIFF* neut% 71.7 % 50.0-7 0.0 high Not Available [facility] [address], [place], [address], 06/24/2023 13:42:47 06/23/19 24 06/23/2023 COMPL ETE BLOOD COUNT WITH AUTO DIFF* lymph% 19.1 % 18.0-4 2.0 Not Available [facility] [address], [place], [address], 06/24/2023 13:42:47 06/23/19 24 06/23/2023 COMPL ETE BLOOD COUNT WITH AUTO DIFF* mono% 5.7 % 2.0-11 .0 Not Available [facility] [address], [place], [address], 06/24/2023 13:42:47 06/23/19 24 06/23/2023 COMPL ETE BLOOD COUNT WITH AUTO DIFF* eos% 2.5 % 1.0-3. 0 Not Available [facility] [address], [place], [address], 06/24/2023 13:42:47 06/23/19 24 06/23/2023 COMPL ETE BLOOD COUNT WITH AUTO DIFF* baso% 0.6 % 0.0-2. 0 Not Available [facility] [address], [place], [address], 06/24/2023 13:42:47 06/23/19 24 06/23/2023 COMPL ETE BLOOD COUNT WITH AUTO DIFF* Ig% 0.4 % 0.0-0. 6 Not Available [facility] [address], [place], [address], 06/24/2023 13:42:47 06/23/19 24 06/23/2023 COMPL ETE BLOOD COUNT WITH AUTO DIFF* neut# 5.16 10E3/ uL 2.30-8 .10 Not Available [facility] [address], [place], [address], 06/24/2023 13:42:47 06/23/19 24 06/23/2023 COMPL ETE BLOOD COUNT WITH AUTO DIFF* lymph# 1.37 10E3/ uL 0.80-4 .80 Not Available [facility] [address], [place], [address], 06/24/2023 13:42:47 06/23/19 24 06/23/2023 COMPL ETE BLOOD COUNT WITH AUTO DIFF* mono# 0.41 10E3/ uL 0.45-1 .30 low Not Available [facility] [address], [place], [address], 06/24/2023 13:42:47 06/23/19 24 06/23/2023 COMPL ETE BLOOD COUNT WITH AUTO DIFF* eos# 0.18 10E3/ uL 0.00-0 .40 Not Available [facility] [address], [place], [address], 06/24/2023 13:42:47 06/23/19 24 06/23/2023 COMPL ETE BLOOD COUNT WITH AUTO DIFF* baso# 0.04 10E3/ uL 0.00-0 .10 Not Available [facility] [address], [place], [address], 06/24/2023 13:42:47 06/23/19 24 06/23/2023 COMPL ETE BLOOD COUNT WITH AUTO DIFF* Ig# 0.03 10E3/ uL 0.00-0 .09 Not Available [facility] [address], [place], [address], 06/24/2023 13:42:47 06/23/19 24 06/23/2023 COMPR EHENS DAVID METAB OLIC PANEL * glucose 93 mg/dL 70-99 The Ameri can Diabe melody Assoc iatio n (ADA) recom mends the follo wing crite clark for the diagn osis of diabe melody: 1) Sympt oms of diabe melody and a rando m gluco se >200 mg/dL OR 2) Fasti ng gluco se >= 126 mg/dL on more than one occas ion. Impai red fasti ng gluco se (IFG) , a fasti ng gluco se betwe en 100 and 125 mg/dL , is defin ed by the ADA as a categ ory at risk for futur e diabe melody and cardi ovasc ular disea se (Pred iabet es). Not Available [facility] [address], [place], [address], 06/24/2023 13:42:48 06/23/19 24 06/23/2023 COMPR EHENS DAVID METAB OLIC PANEL * BUN 26 mg/dL 8-23 high Not Available [facility] [address], [place], [address], 06/24/2023 13:42:48 06/23/19 24 06/23/2023 COMPR EHENS DAVID METAB OLIC PANEL * calcium 8.5 mg/dL 8.8-10 .2 low Not Available [facility] [address], [place], [address], 06/24/2023 13:42:48 06/23/19 24 06/23/2023 COMPR EHENS DAVID METAB OLIC PANEL * creatinine 1.31 mg/dL 0.80-1 .30 high Not Available [facility] [address], [place], [address], 06/24/2023 13:42:48 06/23/19 24 06/23/2023 COMPR EHENS DAVID METAB OLIC PANEL * sodium 142 mmol/ L 136-14 5 Not Available [facility] [address], [place], [address], 06/24/2023 13:42:48 06/23/19 24 06/23/2023 COMPR EHENS DAVID METAB OLIC PANEL * potassium 4.3 mmol/ L 3.5-5. 1 Not Available [facility] [address], [place], [address], 06/24/2023 13:42:48 06/23/19 24 06/23/2023 COMPR EHENS DAVID METAB OLIC PANEL * chloride 107 mEq/L 98-107 Not Available [facility] [address], [place], [address], 06/24/2023 13:42:48 06/23/19 24 06/23/2023 COMPR EHENS DAVID METAB OLIC PANEL * carbon dioxide 25 mmol/ L 23-30 Not Available [facility] [address], [place], [address], 06/24/2023 13:42:48 06/23/19 24 06/23/2023 COMPR EHENS DAVID METAB OLIC PANEL * total protein 5.0 g/dL 6.2-8. 1 low Not Available [facility] [address], [place], [address], 06/24/2023 13:42:48 06/23/19 24 06/23/2023 COMPR EHENS DAVID METAB OLIC PANEL * albumin 3.1 g/dL 3.2-4. 6 low Not Available [facility] [address], [place], [address], 06/24/2023 13:42:48 06/23/19 24 06/23/2023 COMPR EHENS DAVID METAB OLIC PANEL * globulin 1.9 g/dL 2.3-3. 4 low Not Available [facility] [address], [place], [address], 06/24/2023 13:42:48 06/23/19 24 06/23/2023 COMPR EHENS DAVID METAB OLIC PANEL * A/G ratio 1.6 g/dL 0.8-2. 0 Not Available [facility] [address], [place], [address], 06/24/2023 13:42:48 06/23/19 24 06/23/2023 COMPR EHENS DAVID METAB OLIC PANEL * alkaline phosphatase 66 U/L 30-120 Not Available [facility] [address], [place], [address], 06/24/2023 13:42:48 06/23/19 24 06/23/2023 COMPR EHENS DAVID METAB OLIC PANEL * ALT (SGPT) 15 U/L 13-40 Not Available [facility] [address], [place], [address], 06/24/2023 13:42:48 06/23/19 24 06/23/2023 COMPR EHENS DAVID METAB OLIC PANEL * AST (SGOT) 13 U/L 19-48 low Not Available [facility] [address], [place], [address], 06/24/2023 13:42:48 06/23/19 24 06/23/2023 COMPR EHENS DAVID METAB OLIC PANEL * bilirubin, total 0.69 mg/dL 0.20-1 .10 Not Available [facility] [address], [place], [address], 06/24/2023 13:42:48 06/23/19 24 06/23/2023 COMPR EHENS DAVID METAB OLIC PANEL * eGFR 54.74 mL/mi n/1.7 3m2 >60.00 low Refer ence Range for Chron ic Kidne y Disea se (CKD) GFR CKD Stage >60 Stage 1 or 2 30-60 Stage 3 15-29 Stage 4 <15 Stage 5 The estim ated glome rular filtr ation rate (eGFR ) was deter mined using the 2020 CKD-E PI creat inine equat ion, which does not consi jay race as a facto r. This equat ion is for indiv idual s aged >=18 years with the resul t adjus altagracia to a body surfa ce area of 1.73 m2. This calcu latio n has been updat ed on labor atory repor ts effec tive 01/11 . Not Available [facility] [address], [place], [address], 06/24/2023 13:42:48 06/23/19 24 06/23/2023 FOLAT E* folate 13.8 NG/mL 8.6-58 .9 Not Available [facility] [address], [place], [address], 06/24/2023 13:42:48 06/23/19 24 06/23/2023 IRON* iron 89 ug/dL 65-175 Intox icate d Child : 280 - 2250 ug/dL Fatal ly Poiso benny Child : >1800 ug/dL Intox icate d Child : 280 - 2250 ug/dL Fatal ly Poiso benny Child : >1800 ug/dL Not Available [facility] [address], [place], [address], 06/24/2023 13:42:49 06/23/19 24 06/23/2023 MAGNE SIUM* magnesium 1.80 mg/dL 1.60-2 .40 Not Available [facility] [address], [place], [address], 06/24/2023 13:42:49 06/23/19 24 06/23/2023 VITAM IN B12* vitamin B12 257 pg/mL 250-11 00 Not Available [facility] [address], [place], [address], 06/24/2023 13:42:50 06/23/19 24 06/23/2023 COMPL ETE BLOOD COUNT WITH AUTO DIFF* WBC 7.19 10E3/ uL 4.50-1 1.50 Not Available [facility] [address], [place], [address], 06/24/2023 15:10:26 06/23/19 24 06/23/2023 COMPL ETE BLOOD COUNT WITH AUTO DIFF* RBC 4.55 10E6/ uL 4.60-6 .00 low Not Available [facility] [address], [place], [address], 06/24/2023 15:10:26 06/23/19 24 06/23/2023 COMPL ETE BLOOD COUNT WITH AUTO DIFF* HGB 13.8 g/dL 14.0-1 8.0 low Not Available [facility] [address], [place], [address], 06/24/2023 15:10:26 06/23/19 24 06/23/2023 COMPL ETE BLOOD COUNT WITH AUTO DIFF* HCT 40.5 % 40.0-5 4.0 Not Available [facility] [address], [place], [address], 06/24/2023 15:10:26 06/23/19 24 06/23/2023 COMPL ETE BLOOD COUNT WITH AUTO DIFF* MCV 89 fL 80-100 Not Available [facility] [address], [place], [address], 06/24/2023 15:10:26 06/23/19 24 06/23/2023 COMPL ETE BLOOD COUNT WITH AUTO DIFF* MCH 30 pg 26-32 Not Available [facility] [address], [place], [address], 06/24/2023 15:10:26 06/23/19 24 06/23/2023 COMPL ETE BLOOD COUNT WITH AUTO DIFF* MCHC 34.1 g/dL 32.0-3 6.0 Not Available [facility] [address], [place], [address], 06/24/2023 15:10:26 06/23/19 24 06/23/2023 COMPL ETE BLOOD COUNT WITH AUTO DIFF* RDW 13.2 % 11.5-1 4.5 Not Available [facility] [address], [place], [address], 06/24/2023 15:10:26 06/23/19 24 06/23/2023 COMPL ETE BLOOD COUNT WITH AUTO DIFF* plt 129 10E3/ uL 150-45 0 low Not Available [facility] [address], [place], [address], 06/24/2023 15:10:26 06/23/19 24 06/23/2023 COMPL ETE BLOOD COUNT WITH AUTO DIFF* neut% 71.7 % 50.0-7 0.0 high Not Available [facility] [address], [place], [address], 06/24/2023 15:10:26 06/23/19 24 06/23/2023 COMPL ETE BLOOD COUNT WITH AUTO DIFF* lymph% 19.1 % 18.0-4 2.0 Not Available [facility] [address], [place], [address], 06/24/2023 15:10:26 06/23/19 24 06/23/2023 COMPL ETE BLOOD COUNT WITH AUTO DIFF* mono% 5.7 % 2.0-11 .0 Not Available [facility] [address], [place], [address], 06/24/2023 15:10:26 06/23/19 24 06/23/2023 COMPL ETE BLOOD COUNT WITH AUTO DIFF* eos% 2.5 % 1.0-3. 0 Not Available [facility] [address], [place], [address], 06/24/2023 15:10:26 06/23/19 24 06/23/2023 COMPL ETE BLOOD COUNT WITH AUTO DIFF* baso% 0.6 % 0.0-2. 0 Not Available [facility] [address], [place], [address], 06/24/2023 15:10:26 06/23/19 24 06/23/2023 COMPL ETE BLOOD COUNT WITH AUTO DIFF* Ig% 0.4 % 0.0-0. 6 Not Available [facility] [address], [place], [address], 06/24/2023 15:10:26 06/23/19 24 06/23/2023 COMPL ETE BLOOD COUNT WITH AUTO DIFF* neut# 5.16 10E3/ uL 2.30-8 .10 Not Available [facility] [address], [place], [address], 06/24/2023 15:10:26 06/23/19 24 06/23/2023 COMPL ETE BLOOD COUNT WITH AUTO DIFF* lymph# 1.37 10E3/ uL 0.80-4 .80 Not Available [facility] [address], [place], [address], 06/24/2023 15:10:26 06/23/19 24 06/23/2023 COMPL ETE BLOOD COUNT WITH AUTO DIFF* mono# 0.41 10E3/ uL 0.45-1 .30 low Not Available [facility] [address], [place], [address], 06/24/2023 15:10:26 06/23/19 24 06/23/2023 COMPL ETE BLOOD COUNT WITH AUTO DIFF* eos# 0.18 10E3/ uL 0.00-0 .40 Not Available [facility] [address], [place], [address], 06/24/2023 15:10:26 06/23/19 24 06/23/2023 COMPL ETE BLOOD COUNT WITH AUTO DIFF* baso# 0.04 10E3/ uL 0.00-0 .10 Not Available [facility] [address], [place], [address], 06/24/2023 15:10:26 06/23/19 24 06/23/2023 COMPL ETE BLOOD COUNT WITH AUTO DIFF* Ig# 0.03 10E3/ uL 0.00-0 .09 Not Available [facility] [address], [place], [address], 06/24/2023 15:10:26 06/23/19 24 06/23/2023 FOLAT E* folate 13.8 NG/mL 8.6-58 .9 Not Available [facility] [address], [place], [address], 06/24/2023 15:10:27 10/06/19 24 10/06/2023 COMPL ETE BLOOD COUNT WITH AUTO DIFF* WBC 6.30 10E3/ uL 4.50-1 1.50 Not Available [facility] [address], [place], [address], 10/07/2023 17:44:26 10/06/19 24 10/06/2023 COMPL ETE BLOOD COUNT WITH AUTO DIFF* RBC 4.44 10E6/ uL 4.60-6 .00 low Not Available [facility] [address], [place], [address], 10/07/2023 17:44:26 10/06/19 24 10/06/2023 COMPL ETE BLOOD COUNT WITH AUTO DIFF* HGB 13.8 g/dL 14.0-1 8.0 low Not Available [facility] [address], [place], [address], 10/07/2023 17:44:26 10/06/19 24 10/06/2023 COMPL ETE BLOOD COUNT WITH AUTO DIFF* HCT 42.8 % 40.0-5 4.0 Not Available [facility] [address], [place], [address], 10/07/2023 17:44:26 10/06/19 24 10/06/2023 COMPL ETE BLOOD COUNT WITH AUTO DIFF* MCV 96 fL 80-100 Not Available [facility] [address], [place], [address], 10/07/2023 17:44:26 10/06/19 24 10/06/2023 COMPL ETE BLOOD COUNT WITH AUTO DIFF* MCH 31 pg 26-32 Not Available [facility] [address], [place], [address], 10/07/2023 17:44:26 10/06/19 24 10/06/2023 COMPL ETE BLOOD COUNT WITH AUTO DIFF* MCHC 32.2 g/dL 32.0-3 6.0 Not Available [facility] [address], [place], [address], 10/07/2023 17:44:26 10/06/19 24 10/06/2023 COMPL ETE BLOOD COUNT WITH AUTO DIFF* RDW 14.6 % 11.5-1 4.5 high Not Available [facility] [address], [place], [address], 10/07/2023 17:44:26 10/06/19 24 10/06/2023 COMPL ETE BLOOD COUNT WITH AUTO DIFF* plt 111 10E3/ uL 150-45 0 low Not Available [facility] [address], [place], [address], 10/07/2023 17:44:26 10/06/19 24 10/06/2023 COMPL ETE BLOOD COUNT WITH AUTO DIFF* neut% 59.4 % 50.0-7 0.0 Not Available [facility] [address], [place], [address], 10/07/2023 17:44:26 10/06/19 24 10/06/2023 COMPL ETE BLOOD COUNT WITH AUTO DIFF* lymph% 27.3 % 18.0-4 2.0 Not Available [facility] [address], [place], [address], 10/07/2023 17:44:26 10/06/19 24 10/06/2023 COMPL ETE BLOOD COUNT WITH AUTO DIFF* mono% 8.1 % 2.0-11 .0 Not Available [facility] [address], [place], [address], 10/07/2023 17:44:26 10/06/19 24 10/06/2023 COMPL ETE BLOOD COUNT WITH AUTO DIFF* eos% 4.4 % 1.0-3. 0 high Not Available [facility] [address], [place], [address], 10/07/2023 17:44:26 10/06/19 24 10/06/2023 COMPL ETE BLOOD COUNT WITH AUTO DIFF* baso% 0.6 % 0.0-2. 0 Not Available [facility] [address], [place], [address], 10/07/2023 17:44:26 10/06/19 24 10/06/2023 COMPL ETE BLOOD COUNT WITH AUTO DIFF* Ig% 0.2 % 0.0-0. 6 Not Available [facility] [address], [place], [address], 10/07/2023 17:44:26 10/06/19 24 10/06/2023 COMPL ETE BLOOD COUNT WITH AUTO DIFF* neut# 3.74 10E3/ uL 2.30-8 .10 Not Available [facility] [address], [place], [address], 10/07/2023 17:44:26 10/06/19 24 10/06/2023 COMPL ETE BLOOD COUNT WITH AUTO DIFF* lymph# 1.72 10E3/ uL 0.80-4 .80 Not Available [facility] [address], [place], [address], 10/07/2023 17:44:26 10/06/19 24 10/06/2023 COMPL ETE BLOOD COUNT WITH AUTO DIFF* mono# 0.51 10E3/ uL 0.45-1 .30 Not Available [facility] [address], [place], [address], 10/07/2023 17:44:26 10/06/19 24 10/06/2023 COMPL ETE BLOOD COUNT WITH AUTO DIFF* eos# 0.28 10E3/ uL 0.00-0 .40 Not Available [facility] [address], [place], [address], 10/07/2023 17:44:26 10/06/19 24 10/06/2023 COMPL ETE BLOOD COUNT WITH AUTO DIFF* baso# 0.04 10E3/ uL 0.00-0 .10 Not Available [facility] [address], [place], [address], 10/07/2023 17:44:26 10/06/19 24 10/06/2023 COMPL ETE BLOOD COUNT WITH AUTO DIFF* Ig# 0.01 10E3/ uL 0.00-0 .09 Not Available [facility] [address], [place], [address], 10/07/2023 17:44:26 10/06/19 24 10/06/2023 COMPL ETE BLOOD COUNT WITH AUTO DIFF* reflex Smear Review Not Available [facility] [address], [place], [address], 10/07/2023 17:44:26 10/06/19 24 10/06/2023 COMPR EHENS DAVID METAB OLIC PANEL * glucose 95 mg/dL 70-99 The Ameri can Diabe melody Assoc iatio n (ADA) recom mends the follo wing crite clark for the diagn osis of diabe melody: 1) Sympt oms of diabe melody and a rando m gluco se >200 mg/dL OR 2) Fasti ng gluco se >= 126 mg/dL on more than one occas ion. Impai red fasti ng gluco se (IFG) , a fasti ng gluco se betwe en 100 and 125 mg/dL , is defin ed by the ADA as a categ ory at risk for futur e diabe melody and cardi ovasc ular disea se (Pred iabet es). Not Available [facility] [address], [place], [address], 10/07/2023 17:44:26 10/06/19 24 10/06/2023 COMPR EHENS DAVID METAB OLIC PANEL * BUN 19 mg/dL 8-23 Not Available [facility] [address], [place], [address], 10/07/2023 17:44:26 10/06/19 24 10/06/2023 COMPR EHENS DAVID METAB OLIC PANEL * calcium 8.2 mg/dL 8.8-10 .2 low Not Available [facility] [address], [place], [address], 10/07/2023 17:44:26 10/06/19 24 10/06/2023 COMPR EHENS DAVID METAB OLIC PANEL * creatinine 1.05 mg/dL 0.80-1 .30 Not Available [facility] [address], [place], [address], 10/07/2023 17:44:26 10/06/19 24 10/06/2023 COMPR EHENS DAVID METAB OLIC PANEL * sodium 142 mmol/ L 136-14 5 Not Available [facility] [address], [place], [address], 10/07/2023 17:44:26 10/06/19 24 10/06/2023 COMPR EHENS DAVID METAB OLIC PANEL * potassium 4.2 mmol/ L 3.5-5. 1 Not Available [facility] [address], [place], [address], 10/07/2023 17:44:26 10/06/19 24 10/06/2023 COMPR EHENS DAVID METAB OLIC PANEL * chloride 108 mEq/L 98-107 high Not Available [facility] [address], [place], [address], 10/07/2023 17:44:26 10/06/19 24 10/06/2023 COMPR EHENS DAVID METAB OLIC PANEL * carbon dioxide 26 mmol/ L 23-30 Not Available [facility] [address], [place], [address], 10/07/2023 17:44:26 10/06/19 24 10/06/2023 COMPR EHENS DAVID METAB OLIC PANEL * total protein 4.9 g/dL 6.2-8. 1 low Not Available [facility] [address], [place], [address], 10/07/2023 17:44:26 10/06/19 24 10/06/2023 COMPR EHENS DAVID METAB OLIC PANEL * albumin 2.9 g/dL 3.2-4. 6 low Not Available [facility] [address], [place], [address], 10/07/2023 17:44:26 10/06/19 24 10/06/2023 COMPR EHENS DAVID METAB OLIC PANEL * globulin 2.0 g/dL 2.3-3. 4 low Not Available [facility] [address], [place], [address], 10/07/2023 17:44:26 10/06/19 24 10/06/2023 COMPR EHENS DAVID METAB OLIC PANEL * A/G ratio 1.5 g/dL 0.8-2. 0 Not Available [facility] [address], [place], [address], 10/07/2023 17:44:26 10/06/19 24 10/06/2023 COMPR EHENS DAVID METAB OLIC PANEL * alkaline phosphatase 73 U/L 30-120 Not Available [facility] [address], [place], [address], 10/07/2023 17:44:26 10/06/19 24 10/06/2023 COMPR EHENS DAVID METAB OLIC PANEL * ALT (SGPT) 13 U/L 13-40 Not Available [facility] [address], [place], [address], 10/07/2023 17:44:26 10/06/19 24 10/06/2023 COMPR EHENS DAVID METAB OLIC PANEL * AST (SGOT) 12 U/L 19-48 low Not Available [facility] [address], [place], [address], 10/07/2023 17:44:26 10/06/19 24 10/06/2023 COMPR EHENS DAVID METAB OLIC PANEL * bilirubin, total 0.97 mg/dL 0.20-1 .10 Not Available [facility] [address], [place], [address], 10/07/2023 17:44:26 10/06/19 24 10/06/2023 COMPR EHENS DAVID METAB OLIC PANEL * eGFR >60.00 mL/mi n/1.7 3m2 >60.00 The estim ated glome rular filtr ation rate (eGFR ) was deter mined using the 2020 CKD-E PI creat inine equat ion, which does not consi jay race as a facto r. This equat ion is for indiv idual s aged >=18 years with the resul t adjus altagracia to a body surfa ce area of 1.73 m2. This calcu latio n has been updat ed on labor atory repor ts effec tive 01/11 . Not Available [facility] [address], [place], [address], 10/07/2023 17:44:26 06/15/19 24 06/15/2023 XR, hip + pelvi s, unila teral , 4 or more view No observ ation record ed. [email or web address] [facility] [address] [facility], [place], [address], 07/13/2023 07:14:48 Result Notes None recorded. Problems Name Problem SNOMED Code Status Onset Date Resolution Date Notes Provider Name and Address Organization Details Recorded Time Essential hypertensio n [id number] Active 2022 YANIV Arias, PMHNP-BC [address] [place], [address], [facility] - [facility] 4 18:14:22 Neuropathy 825336974 Active 2022 YANIV Arias, PMHNP-BC [address], [place], [address], [place] - [facility] 4 18:14:22 Obstructive sleep apnea of adult 1792833015090 Active 2023 Cristy Dawkins [employer]IXER HELPER-BC, PMHNP-BC [address], [place], [address], [place] - [facility] 4 07:25:43 Osteoarthri tis of multiple joints 389479718 Active 2023 Cristy Dawkins [employer] HELPER-BC, PMHNP-BC [address], [place], [address], [place] - [facility] 4 07:06:33 Low back pain 478864938 Active 2023 FARHEEN AriasP-BC, PMHNP-BC [address], [place], [address], [place] - [facility] 4 07:06:33 Problem Notes None recorded. Procedures Surgical History None recorded. Imaging Results Imaging Date Name Status LastModified by Organiz ation Details LastModified Time 06/15/2023 XR, hip + pelvis, unilateral , 4 or more view completed [email or web address] [facility], [place], [address], 07/13/2023 07:14:48 Procedure Notes None recorded. Medical Equipment None Reported. Allergies Allergen ID Allergen Name Allergen Category Reaction Reaction Severity Criticality Documentation Date Start Date Code Code System Note Provider Name and Address Organization Details Recorded Time 6753 amlodipin e medicatio n Not available Not available Not available 02/22/2023 24436 RxNorm Shamyra [place] null, [place] - [facility] 3 16:46:55 6754 hydrochlo rothiazid e medicatio n Not available Not available Not available 02/22/2023 5487 RxNorm Shamyra [place] null, [place] - [facility] 3 16:47:12 Medications Name Sig Start Date Stop Date Status Note LastModified by Organization Details LastModified Time amoxicillin 500 mg capsule TAKE 1 CAPSULE BY MOUTH TWICE A DAY FOR 7 DAYS 02/22 completed Not Available Not Available Not Available clonidine HCl 0.1 mg tablet 02/22 completed Not Available Not Available Not Available miconazole nitrate 2 % topical cream APPLY TO THE AFFECTED AREA(S) BY TOPICAL ROUTE 2 TIMES PER DAY IN THEMORNIN G AND EVENING 2023 active Not Available Not Available Not Avai lable atenolol 25 mg tablet Take 1 tablet every day by oral route for 90 days. active Not Available Not Available No t Available Zeasorb AF 2 % topical powder APPLY TO THE AFFECTED AREA(S) BY TOPICAL ROUTE 2 TIMES PER DAY IN THEMORNIN G AND EVENING 08/07 completed Not Available Not Available Not Available spironolact one 25 mg tablet Take 1 tablet every day by oral route for 90 days. active Not Available Not Available No t Available Aleve 220 mg tablet Take 1 tablet every day by oral route. active Not Available Not Available No t Available tamsulosin 0.4 mg capsule TAKE 1 CAPSULE EVERY DAY active Not Available Not Available No t Available hydrochloro thiazide 25 mg tablet 02/22 completed Not Available Not Available Not Available irbesartan 150 mg tablet 02/22 completed Not Available Not Available Not Available losartan 100 mg tablet 02/22 completed Not Available Not Available Not Available finasteride 5 mg tablet Take 1 tablet every day by oral route for 90 days. active Not Available Not Available No t Available irbesartan 300 mg tablet Take 1 tablet every day by oral route for 90 days. active Not Available Not Available No t Available Vitals Date Recorded Heart rate Respiratory rate Oxygen saturation Oxygen saturation in Arterial blood by Pulse oximetry Body temperature Systolic blood pressure Diastolic blood pressure Provider Name and Address Organization Details Last Updated DateTime 3 53 /min 18 /min 97 % 97 % 97 [degF] 122 mm[Hg] 68 mm[Hg] Sandoval Clarke [facility] [place] 3 15:23:32 Date Recorded Body height Body mass index (BMI) Body weight Provider Name and Address Organization Details Last Updated DateTime 02/21/2023 180.34 cm 26.4 kg/m2 26641.96 g Cristy Dawkins, MIXER HELPER-BC, PMHNP-BC [address] [place], [address], [facility] 02/22/2023 16:50:28 Date Recorded Body height Heart rate Respiratory rate Oxygen saturation Oxygen saturation in Arterial blood by Pulse oximetry Body temperature Systolic blood pressure Diastolic blood pressure Provider Name and Address Organization Details Last Updated DateTime 3 180.34 cm 55 /min 18 /min 97 % 97 % 97.2 [degF] 140 mm[Hg] 78 mm[Hg] [facility] 3 12:12:20 Date Recorded Body height Heart rate Respiratory rate Oxygen saturation Oxygen saturation in Arterial blood by Pulse oximetry Body temperature Systolic blood pressure Diastolic blood pressure Provider Name and Address Organization Details Last Updated DateTime 3 180.34 cm 57 /min 16 /min 97 % 97 % 97.6 [degF] 148 mm[Hg] 80 mm[Hg] [facility] [place] 3 11:09:11 Date Recorded Body height Heart rate Respiratory rate Oxygen saturation Oxygen saturation in Arterial blood by Pulse oximetry Body temperature Systolic blood pressure Diastolic blood pressure Provider Name and Address Organization Details Last Updated DateTime 4 180.34 cm 55 /min 18 /min 97 % 97 % 97.4 [degF] 130 mm[Hg] 86 mm[Hg] [facility] 4 12:59:18 Date Recorded Body height Heart rate Respiratory rate Oxygen saturation Oxygen saturation in Arterial blood by Pulse oximetry Body temperature Systolic blood pressure Diastolic blood pressure Provider Name and Address Organization Details Last Updated DateTime 4 180.34 cm 58 /min 18 /min 97 % 97 % 98.1 [degF] 152 mm[Hg] 82 mm[Hg] [facility] LORI [facility] 4 14:55:21 Date Recorded Body height Heart rate Respiratory rate Oxygen saturation Oxygen saturation in Arterial blood by Pulse oximetry Body temperature Systolic blood pressure Diastolic blood pressure Provider Name and Address Organization Details Last Updated DateTime 4 180.34 cm 60 /min 16 /min 97 % 97 % 97.7 [degF] 144 mm[Hg] 82 mm[Hg] [facility] 4 09:05:20 Social History Question Answer Notes LastModified by Organizat ion Details LastModified Time Tobacco Smoking Status Former Smoker [facility] 02/22/2023 16:48:48 Do You Have An Advance Directive? Yes [email or web address] Information not available 02/22/2023 What Is Your Level Of Alcohol Consumption? None Information not available 02/22/2023 Are You Blind Or Do You Have Difficulty Seeing? No [email or web address] Information not available 02/22/2023 Is Blood Transfusion Acceptable In An Emergency? Yes [email or web address] Information not available 02/22/2023 What Is Your Level Of Caffeine Consumption? Occasional [email or web address] Information not available 02/22/2023 What Type Of Relay Motorman Do You Use? None [email or web address] Information not available 02/22/2023 What Is Your Code Status? DNR Information not available 02/03/2023 Are You Currently Employed? No [email or web address] Information not available 02/22/2023 Are You Deaf Or Do You Have Serious Difficulty Hearing? No [email or web address] Information not available 02/22/2023 What Type Of Diet Are You Following? REGULAR [email or web address] Information not available 02/22/2023 What Is The Highest Grade Or Level Of School You Have Completed Or The Highest Degree You Have Received? [id number] [email or web address] Information not available 02/22/2023 Have There Been Any Changes To Your Family Or Social Situation? No [email or web address] Information not available 02/22/2023 When Did You Quit Smoking? 1-5yearssincel [email or web address] Information not available 02/22/2023 Are There Any Guns Present In Your Home? No [email or web address] Information not available 02/22/2023 Do You Have A Medical Power Of Tractor Operator Battery? Yes Miguel Galaviz (son-in-la w) Information not available 02/03/2023 What Was The Date Of Your Most Recent Tobacco Screening? 02/21/2023 [email or web address] Information not available 02/22/2023 How Many Children Do You Have? 0 [email or web address] Information not available 02/22/2023 What Is Your Current Pack Years? [email or web address] Information not available 02/22/2023 Do You Have Any Pets? No [email or web address] Information not available 02/22/2023 What Is Your Relationship Status? Information not available 02/22/2023 Do You Use Your Seat Belt Or Car Seat Routinely? Yes [email or web address] Information not available 02/22/2023 Are You Sexually Active? No [email or web address] Information not available 02/22/2023 Do You Have Smoke And Carbon Monoxide Detectors In Your Home? Yes [email or web address] Information not available 02/22/2023 At What Age Did You Start Smoking Tobacco? 20 [email or web address] Information not available 02/22/2023 Are You Passively Exposed To Smoke? No Information not available 02/22/2023 Do You Participate In Social Media? No [email or web address] Information not available 02/22/2023 Do You Feel Stressed (tense, Restless, Nervous, Or Anxious, Or Unable To Sleep At Night)? TN1418-5 [email or web address] Information not available 02/22/2023 Do You Use Any Illicit Or Recreational Drugs? No [email or web address] Information not available 02/22/2023 Do You Use Sunscreen Routinely? No [email or web address] Information not available 02/22/2023 How Many Years Have You Smoked Tobacco? 2 [email or web address] Information not available 02/22/2023 Are You Currently In School? No [email or web address] Information not available 02/22/2023 Do You Have Any Dietary Restrictions? No [email or web address] Information not available 02/22/2023 Do You Or Have You Ever Used Any Other Forms Of Tobacco Or Nicotine? No Information not available 02/22/2023 Sex: Male Functional Status Question Answer Note LastModified by Organizat ion Details LastModified Time Do you have difficulty walking or climbing stairs? Yes [email or web address] Information not available 02/22/2023 Do you have transportation difficulties? No [email or web address] Information not available 02/22/2023 Are you able to walk? YESASSIST [email or web address] Information not available 02/22/2023 Do you have difficulty doing errands alone? Yes Information not available 02/22/2023 Are you able to care for yourself? Yes [email or web address] Information not available 02/22/2023 Do you have difficulty dressing or bathing? No [email or web address] Information not available 02/22/2023 What is your exercise level? None [email or web address] Information not available 02/22/2023 Mental Status Question Answer Note LastModified by Organization D etails LastModified Time Do you have difficulty concentrating, remembering or making decisions? No [email or web address] Information no t available 02/22/2023 Family History Relationship Description Onset Age of this Age Resolved Age Notes LastModified by Organization Details LastModified Time Father Essential hypertension lauri Not available 16:55:25 Medical History Condition Response Hematological Diseases / Disorders Y Obstructive Sleep Apnea Y Genitourinary Diseases / Disorders () Y Gastrointestinal Diseases / Disorders Y Neuropathy Y Neurological Diseases / Disorders Y Hypertension Y Immunizations Vaccine Type Date Status Note Provider Nam e and Address Organization Details Recorded Time Influenza, adjuvanted, quadrivalent, PF 03/10/2023 completed Anamaria Copeland [facility] MD - [facility] 03/10/2023 16:06:40 Past Encounters Encounter ID Performer Location Encounter Start Date Encounter Closed Date Diagnosis/Indication Diagnosis SNOMED-CT Code Diagnosis ICD10 Code Diagnosis Note [id number] Cristy Gomez Juancho MIXER HELPER-BC, PMHNP-BC [facility] [address] [place] [address] 02/21/2023 08:12:18 02/22/2023 19:33:44 Thoracic back pain 078409300 M54.6 Advance care planning 71 9030700 Z71.89 Essential hypertension 68000557 I10 taking medication . labs to eval levels. Neuropathy 921133610 G62 .9 safety when ambulating .numbness. Denies pain. 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 Low back pain 368923199 M54.50 Pain of le ft hip joint 5433423576 33024 M25.552 Essential hypertension 94734898 I10 taking medication . labs to eval levels. Anemia 335806826 D64.9 labs to eval levels. [id number] Cristy Dawkins [facility], [facility] [address] [place] [address] 07/12/2023 13:37:52 07/14/2023 14:17:46 Low back pain 157716372 M54.50 Essential hypertension 73004357 I10 Osteoarthr itis of multiple joints 063161796 M15.9 Dressing-g rooming self-care deficit 879417350 Z74.1 Obstructiv e sleep apnea of adult 1982142315 103 G47.33 [id number] Cristy Dawkins [facility], [facility] [address] [place] [address] 08/03/2023 08:40:09 08/04/2023 08:52:46 Low back pain 897918144 M54.50 Osteoarthr itis of multiple joints 615551763 M15.9 Neuropathy 845820807 G62 .9 Health Concerns Section Related Observation LastModified by Organization Detai ls LastModified Time None Recorded Concern Status LastModified by Organization Details LastModified Time None Recorded Advance Directives Directive Y: Payers Encounter Date Sequence Insurance Name Policy Number Policy Greco Covered Member ID Greco Member ID Guarantor Name 02/21/2023 1 [employer] - G[employer]US (MEDICARE REPLACEMENT HMO) Crow Smith III [id number] Crow Smith 03/21/2023 1 [employer] - [employer]US (MEDICARE REPLACEMENT HMO) Crow Smith III [id number] Crow Smith 06/14/2023 1 [employer] - [employer]US (MEDICARE REPLACEMENT HMO) Crow Smith III [id number] Crow Smith 07/12/2023 1 [employer] - G[employer]US (MEDICARE REPLACEMENT HMO) Crow Smith III [id number] Crow Smith 08/03/2023 1 [employer] - GOLD PLUS (MEDICARE REPLACEMENT HMO) Crow Smith III [id number] Crow Jobson Notes Date Note Type Note Provider Name and Address Organization Details Recorded Time 02/21/2023 text/html Back PainReporte d bypatient.Location:[facility] Severity:moderate (5-7) Associated Symptoms:no fever; no weak limbs; no numbness of the legs/feet; no tingling; no incontinence; no shortness of breath; no unintentional weight loss; no chills; no night sweats; no gait instability; no bowel/bladder symptoms; no recent increase in stress HTN - Compliant with medications. Does not report any GARSIA, blurry vision, dizziness, CP, SOB, or palpitations.Neuropath y - having significant numbness and weakness in BLE. VITALIY Arias, [facility]- [address] 02/22/2023 17:35:34 03/21/2023 text/html Back PainReporte d bypatient.Location:[facility] Severity:moderate (5-7) Alleviating Factors:NSAIDS Associated Symptoms:no fever; no weak limbs; no numbness of the legs/feet; no tingling; no incontinence; no shortness of breath; no unintentional weight loss; no chills; no night sweats; no gait instability; no bowel/bladder symptoms; no recent increase in stress Neuropathy - having significant numbness and weakness in BLE. Denies burning.ABN labs noted on routine labs. YANIV Arias, [facility]- [address], [place], [address] [place] [address], [facility] 03/21/2023 12:42:48 06/14/2023 text/html Back PainReporte d bypatient.Location:[facility];pain radiating to the legs Severity:moderate (5-7) Associated Symptoms:no fever; no weak limbs; no tingling; no incontinence; no shortness of breath; no unintentional weight loss; no chills; no night sweats; no gait instability; no bowel/bladder symptoms; no recent increase in stress;numbness of the legs/feetNotes:Had sustained a fall and patient does not remember such but has noted significant bruising on L side of abdomen. Neuropathy - having significant numbness and weakness in BLE. Denies burning.HTN - Compliant with medications. Does not report any GARSIA, blurry vision, dizziness, CP, SOB, or palpitations. Cristy Dawkins MIXER HELPER-, [facility]- [address] [place], [address], [facility] 06/14/2023 18:22:36 07/12/2023 text/html Joint & Soft Tis marely PainReported bypatient.Location:[facility] pain Quality:aching;dull Timing:frequent Alleviating Factors:nothing helps Aggravating Factors:cannot identify Associated Symptoms:no weakness; no numbness; no tingling; no swelling; no redness; no warmth; no ecchymosis; no catching/locking; no popping/clicking; no buckling; no grinding; no instability; no radiation down leg; no fever/chills; no weight loss; no change in bowel/bladder habitsObstructive Sleep Apnea F/UReported bypatient.Quality:impr oving Severity:limits daily activities(without device) Context:lack of adequate sleep(without mask) Alleviating factors:relief with CPAP Associated Symptoms:excessive sleepiness during the day(if not wearing mask) Neuropathy - having significant numbness and weakness in BLE. Denies burning. Notable difficulties ambulating. Increasing fall risk.HTN - Compliant with medications. Does not report any GARSIA, blurry vision, dizziness, CP, SOB, or palpitations. VITALIY Arias, [facility]- [address] [place], [address], [facility] 07/13/2023 07:30:33 08/03/2023 text/html Joint & Soft Tis marely PainReported bypatient.Location:[facility] pain Quality:aching;dull Timing:frequent Alleviating Factors:nothing helps Aggravating Factors:cannot identify Associated Symptoms:no weakness; no numbness; no tingling; no swelling; no redness; no warmth; no ecchymosis; no catching/locking; no popping/clicking; no buckling; no grinding; no instability; no radiation down leg; no fever/chills; no weight loss; no change in bowel/bladder habits Neuropathy - having significant numbness and weakness in BLE. Denies burning. Notable difficulties ambulating. Increasing fall risk. Cristy Dawkins, MIXER HELPER-BC, PMHNP-BC [address] [place], [address], [facility] - [facility] 08/04/2023 07:07:27
--- OUTSIDE RECORDS SUMMARY | 2024-07-04 02:08 | XMS_ITS | Encounter Summary ---
Author Organization [facility] Address [address] [place] [address] Care Team Providers Care Biological Inspector Name Role Phone Jeremy Carreon MD Primary Care Provider [phone] Encounter Details Date Type Department Care Team (Latest Contact Info) Description 12/10/2003 Outpatient Historical HIS [facility] SINAI Boyd, MD [facility] [address] [address] [place] [address] HYPERTENSION NOS (Primary Dx) Social History Tobacco Use Types Packs/Day Years Used Date Smoking Tobacco: Never Assessed Sex and Gender Information Value Date Recorded Sex Assigned at Not on file 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
--- OUTSIDE RECORDS SUMMARY | 2024-07-04 02:08 | XMS_ITS | Clinical Summary ---
Author Organization [facility] Address [address] [place] [address]. [place] [address] [place] [address] Care Team Providers Care Regional Sales Coordinator Name Role Phone Unavailable Primary Care Provider Unavailabl e Allergies Active Allergy Reactions Criticality Noted Date Comments Amlodipine Shortness of Breath High 05/31/2019 Hydrochlorothiazide Hives High 05/31/2019 Medications tamsulosin (FLOMAX) 0.4 MG Cap Take 1 capsule (0.4 mg total) by mouth daily. Active cloNIDine (CATAPRES) 0.1 MG tabletIndications :Essential hypertension Take 1 tablet (0.1 mg total) by mouth as needed. 60 tablet 3 Active irbesartan (AVAPRO) 300 MG tabletIndications :Essential hypertension TAKE 1 TABLET EVERY DAY 90 tablet 3 3 Active atenolol (TENORMIN) 25 MG tabletIndications :Essential hypertension take 1 tablet every day 90 tablet 4 Active spironolactone (ALDACTONE) 25 MG tabletIndications :Essential hypertension take 1 tablet every day 30 tablet 11 4 Active finasteride (PROSCAR) 5 MG tabletIndications :Benign prostatic hyperplasia with urinary frequency take 1 tablet every day 90 tablet 3 4 Active Active Problems Problem Noted Date Diagnosed Date Benign prostatic hyperplasia with urinary freque ncy 04/13/2022 Obstructive sleep apnea 04/13/2022 Essential hypertension 12/30/2021 Neuropathy 12/30/2021 Polycythemia, 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 Encounters Date Type Department Care Team Description 05/15/2024 Scan [facility] Scanned, [facility] 04/18/2024 Scan [facility] INFO [facility] Scanned, Doc Med Group from Last 3 Months Immunizations Name Administration Dates Next Due Fluzone High Dose - >Age 65 (Prefilled Syringe) 04/06/2022 Pneumococcal (Prevnar 7) 02/05/2012 Family History Medical History Relation Comments Hypertension Father No Known Problems Maternal Grandfather No Known Problems Maternal Grandmother Relation Status Comments Brother Alive Daughter Alive Father Maternal Grandfather Maternal Grandmother Mother Paternal Grandfather Paternal Grandmother Sister Alive Son Alive Social History Tobacco Use Types Packs/Day Years Used Date Smoking Tobacco: Never Smokeless Tobacco: Never Tobacco Cessation:Counseling Given: Not Answered Comments:Not a smoker Alcohol Use Standard Drinks/Week Comments Yes 0 (1 standard drink = 0.6 oz pur e alcohol) wine once a month PHQ-2 Answer Date Recorded Patient Health Questionnaire-2 Score 0 07/14/2022 Sex and Gender Information Value Date Recorded Sex Assigned at Not on file Legal Sex Male 9:22 AM CDT Gender Identity Not on file Sexual Orientation Not on file Last Filed Vital Signs Vital Sign Reading Time Taken Comments Blood Pressure 112/68 10/18/2022 10:14 AM CDT Pulse 55 10/18/2022 10:14 AM CDT Temperature 36.8 ??C (98.3 ??F) 10/18/2022 10:14 AM C DT Respiratory Rate 16 10/18/2022 10:14 AM CDT Oxygen Saturation 97% 10/18/2022 10:14 AM CDT Inhaled Oxygen Concentration - - Weight 85.7 kg (189 lb) 10/18/2022 10:14 AM CDT Height 180.3 cm (5' 11 ) 10/18/2022 10:14 AM CDT Body Mass Index 26.36 10/18/2022 10:14 AM CDT Plan of Treatment Health Maintenance Due Date Last Done Comments DTaP, Tdap and Td Vaccines ( 1 - Tdap) 1961 Zoster Vaccines (1 of 2) 1992 Annual Medicare Wellness Visit 08/22/2007 Pneumococcal Vaccine: 65+ Ye ars (1 of 1 - PCV) 08/22/2007 02/05/2012 RSV Immunization or 60+ Years (1 - 1-dose 75+ series) 2017 PHQ-2 (Physician [place]) 07/14/2023 07/14/2022 COVID-19 Vaccine ( - 2023-2 5 season) 2024 Influenza Adult (#1) 2024 04/06/2022 PHQ-2 (Physician [place]) 06/06/2024 07/14/2022 Meningococcal B Vaccine Aged Out No l onger eligible based on patient's age to complete this topic Meningococcal Vaccine Aged Out No tyler soumya eligible based on patient's age to complete this topic RSV Immunizations Under 20 Months Aged Out No longer eligible based on patient's age to complete this topic Insurance [facility]
--- OUTSIDE RECORDS SUMMARY | 2024-07-04 02:08 | XMS_ITS | Encounter Summary ---
Author Organization [employer] Address [address] 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
--- OUTSIDE RECORDS SUMMARY | 2024-07-04 02:08 | XMS_ITS | Encounter Summary ---
Author Organization [facility] Address [address] [place] [address] Care Team Providers Care Independent Crop Consultant Name Role Phone Jeremy Carreon MD Primary Care Provider [phone] Encounter Details Date Type Department Care Team (Latest Contact Info) Description 07/19/2000 Outpatient Historical HIS [facility] SINAI Boyd, MD [facility] [address] [facility] [address] [place] [address] Unspecified essential hypertension (Primary Dx) Social History Tobacco Use Types Packs/Day Years Used Date Smoking Tobacco: Never Assessed Sex and Gender Information Value Date Recorded Sex Assigned at Not on file 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
--- NOTE | 2024-07-04 02:10 | ECG_ITS ---
Test Date: 2024-07-04 02:17:03 Measurements Intervals [place] Rate: 51 P: 0 [place]: 0 QRS: -29 QRSD: 100 T: 45 QT: 432 QTc: 400 Interpretive Statements PROBABLE SINUS RHYTHM BASELINE ARTIFACT LIMITS INTERPRETATION BORDERLINE LEFT AXIS DEVIATION [QRS AXIS < -20] Compared to ECG 05/07/2024 17:58:29 NO SIGNIFICANT CHANGES Electronically Signed On 07-04-2024 15:57:49 PHOTOVOLTAIC POWER SYSTEMS ENGINEER by Cindi Fine M.D.
[2024-07-04 02:36] LABS: Basophils Percent Auto 0.5 % (0.2-1.2); Eosinophils Absolute Auto 0.6 K/mm3 (0-0.3); Eosinophils Percent Auto 7.4 % (0-4.4); Hematocrit 41.8 % (42.0-52.0); Hemoglobin 13.7 g/dL (14.0-18.0); Immature Granulocyte Absolute 0.02 K/mm3 (0.00-0.031); Immature Granulocyte Percent A 0.3 % (0-0.5); Immature Platelet Fraction Pct 2.8 % (0.9-11.2); Lymphocytes Absolute Auto 1.85 K/mm3 (0.9-3.2); Lymphocytes Percent Auto 23.7 % (18.3-44.2); Mean Corpuscular HGB Conc 32.8 g/dl (32-36); Mean Corpuscular Hemoglobin 30.2 pg (26-34); Mean Corpuscular Volume 92.3 fl (80-100); Mean Platelet Volume 9.9 fl (7.4-10.4); Monocytes Absolute Auto 0.6 K/mm3 (0.1-0.6); Monocytes Percent Auto 7.4 % (2.6-8.5); Neutrophils Absolute Auto 4.7 K/mm3 (1.3-6.7); Neutrophils Percent Auto 60.7 % (45.5-73.1); Platelet Count Result 118 k/mm3 (150-375); Red Blood Count 4.53 M/mm3 (4.6-6.20); Red Cell Distribution Width 14.1 % (11.5-14.5); White Blood Count 7.8 K/mm3 (4.5-10.0)
[2024-07-04 02:46] LABS: Alanine Aminotransferase 14 U/L (6-50); Albumin Level 3.6 g/dL (3.5-5.1); Alkaline Phosphatase 73 U/L (38-126); Anion Gap 5 mmol/L (4-12); Aspartate Amino Transferase 16 U/L (17-59); Blood Urea Nitrogen 45 mg/dL (9-20); Calcium 8.3 mg/dL (8.4-10.2); Carbon Dioxide 27 mmol/L (22-30); Chloride 106 mmol/L (98-107); Estimated CRCL calculation 53 ml/min; Estimated Glomerular Filt Rate > 60; Glucose 93 mg/dL (65-110); Potassium 4.1 mmol/L (3.4-5.0); Sodium 138 mmol/L (137-145)
[2024-07-04 03:10] LABS: Influenza A QL RT-PCR Negative (Negative); Influenza B QL RT-PCR Negative (Negative); RSV RNA, RT-PCR Negative (Negative); SARS-CoV-2 RNA PCR Negative (Negative)
[2024-07-04] MEDS: LACTATED RINGERS 1,000 ML 999 ML IV CONT (05:04)
[2024-07-04 05:26] LABS: Add Urine Microscopic? YES; Appearance Urine Cloudy (Clear); Bacteria Urine 4+ /hpf; Bilirubin Urine Negative (Negative); Blood Urine Negative (Negative); Color Urine Yellow (Yellow); Glucose Urine UA Negative (Negative); Ketones Urine Trace mg/dL (Negative); Leukocyte Esterase Ur Trace LEU/UL (Negative); Need Manual Microscopic Reviewed; Nitrate Urine Negative (Negative); Non Pathogenic Casts 0-2; Protein Urine Trace mg/dL (Negative); RBC Urine >100 /hpf (0-2); Specific Grav Ur 1.015 (1.001-1.035); Squamous Epithelial Cell Urine None Seen /hpf (Few); Urobilinogen Urine 0.2 mg/dL (<2.0); WBC Urine 0-5 /hpf (0-3)
--- OUTSIDE RECORDS SUMMARY | 2024-07-04 05:45 | XMS_ITS | Clinical Summary ---
Author Organization [facility] Address [address] [place] [address]. [place] [address] [place] [address] Care Team Providers Care Md Psychiatry Name Role Phone Unavailable Primary Care Provider [...] - 1-dose 75+ series) 2017 PHQ-2 (Physician [place]) 07/14/2023 07/14/2022 COVID-19 Vaccine ( - 2023-2 5 season) 2024 Influenza Adult (#1) 2024 04/06/2022 PHQ-2 (Physician [place]) 06/06/2024 07/14/2022 Meningococcal B Vaccine Aged Out No l onger eligible based on patient's age to complete this topic Meningococcal Vaccine Aged Out No tyler soumya eligible based on patient's age to complete this topic RSV Immunizations Under 20 Months Aged Out No longer eligible based on patient's age to complete this topic Insurance [facility]
--- OUTSIDE RECORDS SUMMARY | 2024-07-04 05:45 | XMS_ITS | Clinical Summary ---
Author Organization [facility] Address [address] [place] [address] Phone Care Team Providers Care Paper Supervisor Name Role Phone Eric French MD Primary Care Provider [phone] Allergies Active Allergy Reactions Criticality Noted Date [...] Comments Blood Pressure 162/80 05/05/2022 2:40 PM AQUA AMMONIA OPERATOR Pulse 60 05/05/2022 2:40 PM AQUA AMMONIA OPERATOR Temperature 35.3 ??C (95.5 ??F) 05/05/2022 2:40 PM CS T Respiratory Rate - - Oxygen Saturation - - Inhaled Oxygen Concentration - - Weight 89.4 kg (197 lb) 05/05/2022 2:40 PM AQUA AMMONIA OPERATOR Height 182.9 cm (6') 05/05/2022 2:40 PM AQUA AMMONIA OPERATOR Body Mass Index 26.72 05/05/2022 2:40 PM AQUA AMMONIA OPERATOR Plan of Treatment Health Maintenance Due Date Last Done Comments Pneumococcal PPSV23/PCV13 65 + Years / High and Highest Risk (1 of 4 - PCV) 1948 Influenza Vaccine (#1) 2024 Care Teams Paper Supervisor Relationship Specialty Start Date End Date Eric French MD [address] [place] [id number] PCP - General Internal Medicine 05/05/22
--- OUTSIDE RECORDS SUMMARY | 2024-07-04 05:46 | XMS_ITS | Encounter Summary ---
Author Organization [employer] Address [address] 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
--- OUTSIDE RECORDS SUMMARY | 2024-07-04 05:46 | XMS_ITS | Encounter Summary ---
Author Organization [facility] Address [address] [place] [address] Care Team Providers Care Unarmed Security Officer Name Role Phone Jeremy Carreon MD Primary Care Provider [phone] Encounter Details Date Type Department Care Team (Latest Contact Info) Description 07/08/2006 Outpatient Historical HIS [facility] SINAI Boyd, MD Aristeo [address] 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 Gender Identity Not on file Sexual Orientation Not on file documented as of this encounter Plan of Treatment Not on file documented as of this encounter Procedures Procedure Name Priority Date/Time Associated Diagnosis Comments URINALYSIS WITH MICROSCOPIC Routine 07/08/2006 10:56 AM TASSEL SNIPPER TSH WITH REFLEX FT4 AND FT3 Routine 07/08/2006 10:53 AM TASSEL SNIPPER CBC WITH DIFFERENTIAL Routine 07/08/2006 10:53 AM TASSEL SNIPPER CBC WITH DIFFERENTIAL Routine 07/08/2006 10:53 AM TASSEL SNIPPER PSA Routine 07/08/2006 10:53 AM TASSEL SNIPPER LIPID PANEL Routine 07/08/2006 10:53 AM TASSEL SNIPPER COMPREHENSIVE METABOLIC PANEL Routine 07/08/2006 10:53 AM TASSEL SNIPPER documented in this encounter Results * URINALYSIS WITH MICROSCOPIC (07/08/2006 10:56 AM TASSEL SNIPPER) COLOR UA Yellow INTERFACE SYSTEM CLARITY UA Clear Clear INTERFACE SYSTEM SPECIFIC GRAVITY UA 1.016 1.001 - 1.035 INTERFACE SYSTEM PH UA 5.5 5.0 - 8.0 INTERFACE SYSTEM LEUKOCYTE ESTERASE UA Negative Negative INTERFACE SYSTEM NITRITE UA Negative Negative INTERFACE SYSTEM PROTEIN UA Negative Negative INTERFACE SYSTEM GLUCOSE UA Negative Negative INTERFACE SYSTEM KETONES UA Negative Negative INTERFACE SYSTEM UROBILINOGEN UA <1 <=1 mg/dL INTE RFACE SYSTEM BILIRUBIN UA Negative Negative INTERFA CE SYSTEM BLOOD UA Negative Negative INTERFACE SYSTEM WBC UA <1 0 - 3 /HPF INTERFACE SYSTEM RBC UA 0 0 - 3 /HPF INTERFACE SYSTEM 07/08/2006 10:5 6 AM TASSEL SNIPPER Aristeo Boyd MD URINE ORDERABLES Edited Performing Organization Address [facility] Phone Number INTERFACE SYSTEM Refer to clinic/hospital department * CBC WITH DIFFERENTIAL (07/08/2006 10:53 AM TASSEL SNIPPER) NEUTROPHILS 63 45 - 70 % INTERFAC E SYSTEM LYMPHOCYTES 25 16 - 45 % INTERFAC E SYSTEM MONOCYTES 8 3 - 13 % INTERFACE SYSTEM EOSINOPHILS 4 0 - 7 % INTERFAC E SYSTEM BASOPHILS 1 0 - 2 % INTERFACE SYSTEM NEUTROPHIL ABSOLUTE 6.23 1.90 - 7.00 K/uL INTERFACE SYSTEM LYMPHOCYTE ABSOLUTE 2.45 0.70 - 4.50 K/uL INTERFACE SYSTEM MONOCYTE ABSOLUTE 0.84 0.10 - 1.30 K/uL INTERFACE SYSTEM EOSINOPHIL ABSOLUTE 0.38 0.00 - 0.70 K/uL INTERFACE SYSTEM BASOPHILS ABSOLUTE 0.08 0.00 - 0.20 K/uL INTERFACE SYSTEM 07/08/2006 10:5 3 AM TASSEL SNIPPER Aristeo Boyd MD HEMATOLOGY ORDERABLES Edited Performing Organization Address [facility] Phone Number INTERFACE SYSTEM Refer to clinic/hospital department * (ABNORMAL) CBC WITH DIFFERENTIAL (07/08/2006 10:53 AM TASSEL SNIPPER) WBC 10.0(H) 4.0 - 9.8 K/uL INTERFACE SYSTEM RBC 5.83(H) 4.50 - 5.40 M/uL INTERFACE SYSTEM HEMOGLOBIN 17.5(H) 13.6 - 16.5 g/dL INTERFACE SYSTEM HEMATOCRIT 50.2(H) 40.0 - 48.0 % INTERFACE SYSTEM MCV 86.1 82.0 - 99.0 fL INTERFACE SYSTEM MCH 30.0 27.2 - 32.6 pg INTERFACE SYSTEM MCHC 34.9 31.5 - 35.5 % INTERFACE SYSTEM RDW 12.8 11.5 - 14.5 % INTERFACE SYSTEM RDW-STDEV 40.3 37.1 - 48.7 fL INTERFACE SYSTEM PLATELETS 183 140 - 350 K/uL INTERFACE SYSTEM MPV 11.5 9.3 - 12.4 fL INTERFACE SYSTEM 07/08/2006 10:5 3 AM TASSEL SNIPPER Aristeo Boyd MD HEMATOLOGY ORDERABLES Edited Performing Organization Address [facility] Co de Phone Number INTERFACE SYSTEM Refer to clinic/hospital department * TSH WITH REFLEX FT4 AND FT3 (07/08/2006 10:53 AM TASSEL SNIPPER) TSH 2.14 0.27 - 4.20 uU/mL INTERFACE SYSTEM 07/08/2006 10:5 3 AM TASSEL SNIPPER Aristeo Boyd MD CHEMISTRY ORDERABLES Edited Performing Organization Address City/[facility]/ZIP Co de Phone Number INTERFACE SYSTEM Refer to clinic/hospital department * PSA (07/08/2006 10:53 AM TASSEL SNIPPER) PSA 1.9 0.0 - 4.0 ng/mL INTERFACE SYSTEM Comment:Performed on Donita M odular E170 System 07/08/2006 10:5 3 AM TASSEL SNIPPER Aristeo Boyd MD CHEMISTRY ORDERABLES Edited INTERFACE SYSTEM Refer to clinic/hospital department * (ABNORMAL) LIPID PANEL (07/08/2006 10:53 AM TASSEL SNIPPER) CHOLESTEROL 204(H) 100 - 199 mg/dL INTERFACE SYSTEM TRIGLYCERIDE 225(H) 10 - 149 mg/dL INTERFACE SYSTEM HDL 48 40 - 59 mg/dL INTERFACE SYSTEM CHOL/HDL RATIO 4.3 2.0 - 5.0 INTER FACE SYSTEM LDL CALCULATED 111(H) <=99 mg/dL INTERFACE SYSTEM LIPID PANEL COMMENT See Below INTERFACE SYSTEM Comment: The adult ATP and pediatric NCEP classifications for lipids are available on the [facility] Intranet at: [email or web address] Select: Lab Policies and Procedures Select: Reference Ranges - Lipids 07/08/2006 10:5 3 AM TASSEL SNIPPER Aristeo Boyd MD CHEMISTRY ORDERABLES Edited INTERFACE SYSTEM Refer to clinic/hospital department * COMPREHENSIVE METABOLIC PANEL (07/08/2006 10:53 AM TASSEL SNIPPER) GLUCOSE 90 65 - 99 mg/dL INTERFACE SYSTEM CREATININE 1.13 0.67 - 1.17 mg/dL INTERFACE SYSTEM CALCIUM 9.1 8.4 - 10.2 mg/dL INTERFACE SYSTEM ALKALINE PHOSPHATASE 73 40 - 129 U/L INTERFACE SYSTEM AST 14 12 - 38 U/L INTERFACE SYSTEM ALT 21 0 - 41 U/L INTERFACE SYSTEM TOTAL PROTEIN 6.4 6.3 - 8.6 g/dL INTERFACE SYSTEM ALBUMIN 4.2 3.4 - 4.8 g/dL INTERFACE SYSTEM BILIRUBIN TOTAL 0.9 0.2 - 1.0 mg/dL INTERFACE SYSTEM BUN 20 6 - 20 mg/dL INTERFACE SYSTEM SODIUM 140 135 - 145 mmol/L INTERFACE SYSTEM POTASSIUM 4.2 3.5 - 4.9 mmol/L INTERFACE SYSTEM CHLORIDE 103 96 - 108 mmol/L INTERFACE SYSTEM CO2 28 22 - 30 mmol/L INTERFACE SYSTEM GFR, >60 >=60 mL/min/1.7 sq meter INTERFACE SYSTEM GFR >60 >=60 mL/min/1.7 sq meter INTERFACE SYSTEM Comment: Estimated GFR rate interpretative information for both Americans and non- Americans is available on the [facility] Intranet at: [email or web address] Select: Lab Policies and Procedures Select: Reference Ranges - GFR 07/08/2006 10:5 3 AM TASSEL SNIPPER us Aristeo Boyd MD CHEMISTRY ORDERABLES Edited INTERFACE SYSTEM Refer to clinic/hospital department documented in this encounter Visit Diagnoses Diagnosis Routine general medical examination at a health care facility- Primary documented in this encounter Care Teams Unarmed Security Officer Relationship Specialty Start Date End Date Jeremy Carreon MD [address] [place] [phone] PCP - General Internal Medicine 05/17/19 02/14/23 documented as of this encounter
--- OUTSIDE RECORDS SUMMARY | 2024-07-04 05:46 | XMS_ITS | Encounter Summary ---
Author Organization [facility] Address [address] 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
--- OUTSIDE RECORDS SUMMARY | 2024-07-04 05:46 | XMS_ITS | Encounter Summary ---
Author Organization [facility] Address [address] [place] [address] Care Team Providers Care Home Health Nurse Name Role Phone Jeremy Carreon MD Primary Care Provider [phone] Encounter Details Date Type Department Care Team (Latest Contact Info) Description 03/27/2003 Outpatient Historical HIS [facility] SINAI Boyd, MD [facility]isteo 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
--- OUTSIDE RECORDS SUMMARY | 2024-07-04 05:46 | XMS_ITS | Encounter Summary ---
Author Organization [facility] Address [address] [place] [address] Care Team Providers Care Stone Polisher Hand Name Role Phone Jeremy Carreon MD Primary Care Provider [phone] Encounter Details Date Type Department Care Team (Latest Contact Info) Description 07/19/2000 Outpatient Historical HIS [facility] SINAI Boyd, MD Aristeo [address] [place] [address] Unspecified essential hypertension (Primary Dx) Social History Tobacco Use Types Packs/Day Years Used Date Smoking Tobacco: Never Assessed Sex and Gender Information Value Date Recorded Sex Assigned at Not on file 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
--- OUTSIDE RECORDS SUMMARY | 2024-07-04 05:46 | XMS_ITS | Clinical Summary ---
Author Organization 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 AIRCRAFT CONTROLLER Gender Identity Not on file Sexual Orientation [...] Height 182.9 cm (6') 05/12/2021 2:31 PM TARGET AIRCRAFT CONTROLLER Body Mass Index 24.22 05/12/2021 2:31 PM TARGET AIRCRAFT CONTROLLER Plan of Treatment Health Maintenance Due Date Last Done Comments DTAP/TDAP/TD VACCINES (1 - Tdap) 1961 PNEUMOCOCCAL VACCINE 65+ YEA RS (1 of 1 - PCV) 1992 02/05/2012 ZOSTER VACCINE (1 of 2) 1992 RSV VACCINE (60+ or ) (1 - 1-dose 75+ series) 2017 INFLUENZA VACCINE (#1) 2024 04/06/2022, 2021 Insurance [employer] [facility] Address: [address] [address]
--- OUTSIDE RECORDS SUMMARY | 2024-07-04 05:46 | XMS_ITS | Encounter Summary ---
Author Organization [facility] Address [address] [place] [address] Care Team Providers Care Data Processing Systems Consultant Name Role Phone Jeremy Carreon MD Primary Care Provider [phone] Encounter Details Date Type Department Care Team (Latest Contact Info) Description 12/10/2003 Outpatient Historical HIS [facility] SINAI Boyd, MD [facility]iste[facility] [address] [address] [place] [address] HYPERTENSION NOS (Primary Dx) Social History Tobacco Use Types Packs/Day Years Used Date Smoking Tobacco: Never Assessed Sex and Gender Information Value Date Recorded Sex Assigned at Not on file 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
--- OUTSIDE RECORDS SUMMARY | 2024-07-04 05:46 | XMS_ITS | Encounter Summary ---
Author Organization [facility] Address [address] [place] [address] Care Team Providers Care Lacing Operator Name Role Phone Jeremy Carreon MD Primary Care Provider [phone] Encounter Details Date Type Department Care Team (Latest Contact Info) Description 03/17/2005 Outpatient Historical HIS [facility] SINAI Boyd, MD Aristeo [address] 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 Gender Identity Not on file Sexual Orientation [...] URINE ORDERABLES Final Result Performing Organization Address [facility] Phone Number INTERFACE SYSTEM Refer to [...] ORDERABLES Final Resu lt Performing Organization Address [facility] Co de Phone Number INTERFACE SYSTEM [...] ORDERABLES Final Resu lt Performing Organization Address [facility] Phone Number INTERFACE SYSTEM Refer to clinic/hospital department * TSH (03/17/2005 9:40 AM CDT) TSH 1.96 0.27 - 4.20 uU/mL INTERFACE SYSTEM 03/17/2005 9:40 AM CDT Aristeo Boyd MD CHEMISTRY ORDERABLES Final Resul t Performing Organization Address [facility] Phone Number INTERFACE SYSTEM Refer to clinic/hospital department * PSA (03/17/2005 9:40 AM CDT) PSA 1.5 0.0 - 4.0 ng/mL INTERFACE SYSTEM Comment:Performed on Donita M odular E170 System 03/17/2005 9:40 AM CDT Aristeo Boyd MD CHEMISTRY ORDERABLES Final Resul t Performing Organization Address [facility] Phone Number INTERFACE SYSTEM Refer to [...] Primary documented in this encounter Care Teams Lacing Operator Relationship Specialty [place] [address] [place] [phone] PCP - General Internal Medicine 05/17/19 02/14/23 documented as of this encounter
--- NOTE | 2024-07-04 07:06 | ED_ITS ---
HPI - Fall General Chief Complaint: Weakness Stated Complaint: fall and weakness Time Seen by Provider: 07/04/24 04:01 History of Present Illness HPI Narrative: 83-year-old male presenting from his care home facility after a ground level fall that was not witnessed. Patient has a history of mild cognitive impairment, dementia, hypertension, hyperlipidemia, BPH. Patient is not quite clear what happened today or what led to the fall. He normally uses a Rollator to ambulate. Patient states he fell onto his right hand and does have a small skin avulsion, skin breakdown on the dorsum of the right hand without any active bleeding. He is complaining of pain in the left side base of the skull and a mild low back pain. Patient is somewhat slow to respond to questioning but is able to answer them and follow commands. No lateralizing weakness or any sensory deficits. Related Data Home Medications ?Medication ?Instructions ?Recorded ?Confirmed ?Last Taken ?Type cholecalciferol (vitamin D3) 50 50 mcg PO DAILY 05/23/20 02/23/24 11/25/21 History mcg (2,000 unit) capsule zinc 50 mg tablet 50 mg PO DAILY 05/23/20 02/23/24 11/25/21 History dietary supplement See Rx Instructions .Route .COMPLEX 03/10/21 02/23/24 Unknown History Allergies Allergy/AdvReac Type Severity Reaction Status Date / Time amlodipine Allergy Intermediate HIVES, Verified 03/04/24 04:30 ITCHING hydrochlorothiazide Allergy Unknown RASH & Verified 03/04/24 04:30 ITCHING valsartan Allergy Unknown Hives Verified 03/04/24 04:30 Review of Systems 2 Review of Systems: As reviewed above in HPI [facility] Past Medical History Medical History Basal cell carcinoma of skin Chronic back pain Obstructive sleep apnea Neuropathy Dyslipidemia Left ventricular diastolic dysfunction, NYHA class 1 Essential hypertension Surgical History Surgical History History of basal cell carcinoma excision jaw History of tonsillectomy Family History Family History Father Hypertension, Onset Age: 88 Social History Social History Social History: Patient wishes to be DNR and his POA is Miguel Boggs who lives in [place]. Smoking packs per day: 0.5 Smoking cigarettes per day: 10.0 Years smoked: 2 Smoking pack-years: 1.00 Smoking status: Former smoker Tobacco type: cigarettes Second hand tobacco smoke exposure: No Smoking end date: 06/06/1960 Alcohol intake: current Drinks per week: 1 Alcohol use details: a glass a wine Substance use: never Substance use type: does not use Do You Feel Safe in your Home?: Yes Lack of Transportation: No Lack of Food: Never True Current Housing: I Have Housing Concerned About Future Housing: No Difficulty Paying Gas/Electric Bills: No Difficulty Paying for Meds: No Currently Unemployed: No Education: Master's Degree or Higher Difficulty w/ Childcare or Family Care: No Living arrangements: assisted living Additional living arrangements comments: . Lives at [facility]. Occupation/Education: retired Additional occupation/education comments: [employer] Spiritual care concerns: No Agree to blood products: Yes Exam 2 Narrative: GENERAL: Elderly, frail appearing but not in any acute distress HEAD: [Normocephalic, atraumatic.] EYES: [PERRLA and EOMI.] ENT: Nares clear, no rhinorrhea or epistaxis. Mucous membranes moist. NECK: Supple. CHEST: [Clear to auscultation. No respiratory distress.] HEART: [Regular rate and rhythm]. No murmur heard. [Normal peripheral pulses.] ABDOMEN: [Soft, nondistended], [nontender], [No rigidity or guarding] EXTREMITIES: Normal range of motion. [No edema.] Full treating plant pumper strength, no drift in the arms or legs, no ataxia SKIN: Small skin tear on the dorsum of the right upper extremity and the dorsum forearm, no active bleeding. NEURO: No lateralizing deficits, some slowness to respond to questioning but able to answer them and follow commands. Alert and oriented x2 which appears to be his baseline review of the EMR PSYCH: [Normal mood and affect.] Course Vital Signs Vital signs: Vital Signs Temperature 36.3 C L 07/04/24 02:13 Pulse Rate 51 L 07/04/24 02:13 Respiratory Rate 14 07/04/24 02:13 Blood Pressure 123/78 07/04/24 02:13 Pulse Oximetry 98 07/04/24 02:13 Temperature 36.3 C L 07/04/24 02:13 Pulse Rate 54 L 07/04/24 05:01 Respiratory Rate 17 07/04/24 05:01 Blood Pressure 138/58 L 07/04/24 05:01 Pulse Oximetry 98 07/04/24 05:01 Procedures Laceration Laceration 1: Date: 07/04/24 Time: 04:50 Site: hand Side (If applicable): right Size (cm): 0.5 Description: flap Depth: simple, single layer Local Anesthetic: none Pre-repair: wound explored ====== Skin Level ====== Skin layer closed with: dermabond ====== Subcutaneous Layer ====== ====== Muscle Layer ====== ====== Tendon Layer ====== MDM - Fall MDM Narrative Medical decision making narrative: 83-year-old male presenting from his group home facility after a ground level fall that was not witnessed. He was concerned about increased weakness but is not quite sure why he fell. He has no external evidence of trauma aside from a small skin tear on his dorsum of the right hand. He is slow to respond to questioning but is unclear if this is his baseline, on review of the EMR he does have an A&O x2 at baseline from cognitive impairment and dementia. He has also had frequent falls in the past. Patient herself has no lateralizing focal deficits on his neurological assessment, slightly bradycardic but no hypertension, tachypnea, hypoxia or fever. Given his age and risk factors scans of his head and neck were ordered. He was complain of low back pain so we extended to include is lumbar back. Chest x-ray, EKG, CBC, CMP, COVID fluid RSV swabs and he was given a fluid bolus as well as urinalysis obtained. Skin glue was used to close his small skin tear on the right upper extremity. Workup shows no leukocytosis or significant anemia. Mild thrombocytopenia in line with his baseline levels. Electrolyte panel within normal limits, mildly elevated BUN, normal creatinine, normal glucose, normal LFTs. Urinalysis without signs of infection but there is evidence of microscopic hematuria. Negative COVID fluid RSV swabs. Chest x-ray and hand x-ray shows no acute process. Head CT shows a left-sided subdural hematoma in the parietal region measuring 4 mm, questionable right- sided subdural hematoma in the parietal region as well. Spine images show age indeterminate L2 fracture, spondylosis of lumbar spine. No cervical spine fracture. Patient was re-evaluated and still hemodynamically stable with no functional neurological complaints. Given his significant intracranial findings including subdural hematoma he requires transfer to a higher level of care trauma center for further trauma evaluation and treatment with neuro surgery consultation. [facility] transfer center was spoken to over the phone regarding transfer. I was connected with Dr. Bacon the ER physician over at [facility]. Patient was accepted as a direct ED to ED transfer after we went over patient's care and need for trauma evaluation. ALS ambulance unit was arranged and patient successfully transferred at this time. Medical Records Attestation: I reviewed the patient's medical records. Lab Data Attestation: I reviewed the patient's lab results. 07/04/24 02:27 07/04/24 02:27 Labs: Lab Results 07/04/24 07/04/24 Range/Units 02:27 04:55 WBC 7.8 (4.5-10.0) K/mm3 RBC 4.53 L (4.6-6.20) M/mm3 Hgb 13.7 L (14.0-18.0) g/dL Hct 41.8 L (42.0-52.0) % MCV 92.3 (80-100) fl MCH 30.2 (26-34) pg MCHC 32.8 (32-36) g/dl RDW 14.1 (11.5-14.5) % Plt Count 118 L (150-375) k/mm3 MPV 9.9 (7.4-10.4) fl Immature Gran % (Auto) 0.3 (0-0.5) % Neut % (Auto) 60.7 (45.5-73.1) % Lymph % (Auto) 23.7 (18.3-44.2) % Bertie % (Auto) 7.4 (2.6-8.5) % Eos % (Auto) 7.4 H (0-4.4) % Baso % (Auto) 0.5 (0.2-1.2) % Lymph # (Auto) 1.85 (0.9-3.2) K/mm3 Bertie # (Auto) 0.6 (0.1-0.6) K/mm3 Eos # (Auto) 0.6 H (0-0.3) K/mm3 Baso # (Auto) 0.0 (0.0-0.1) K/mm3 Abs Immat Gran (auto) 0.02 (0.00-0.031) K/mm3 Absolute Neuts (auto) 4.7 (1.3-6.7) K/mm3 Absolute Nucleated RBC 0.000 (0.0-0.012) K/mm3 Nucleated RBC % 0.0 (0.0-0.2) % % Immature Plt Fraction 2.8 (0.9-11.2) % Sodium 138 (137-145) mmol/L Potassium 4.1 (3.4-5.0) mmol/L Chloride 106 (98-107) mmol/L Carbon Dioxide 27 (22-30) mmol/L Anion Gap 5 (4-12) mmol/L BUN 45 H D (9-20) mg/dL Creatinine 1.03 (0.7-1.3) mg/dL Estim Creat Clear Calc 53 ml/min Estimated GFR > 60 (59 - ) Glucose 93 (65-110) mg/dL Calcium 8.3 L (8.4-10.2) mg/dL Total Bilirubin 1.0 (0.2-1.3) mg/dL AST 16 L (17-59) U/L ALT 14 (6-50) U/L Alkaline Phosphatase 73 (38-126) U/L Total Protein 6.0 L (6.3-8.2) g/dL Albumin 3.6 (3.5-5.1) g/dL Urine Color Yellow (Yellow) Urine Appearance Cloudy H (Clear) Urine pH 6.0 (5.0-9.0) Ur Specific [place] 1.015 (1.001-1.035) Urine Protein Trace (Negative) mg/dL Urine Glucose (UA) Negative (Negative) mg/dL Urine Ketones Trace H (Negative) mg/dL Ur Blood (Man) Negative (Negative) Urine Nitrate Negative (Negative) Urine Bilirubin Negative (Negative) Urine Urobilinogen 0.2 (<2.0) mg/dL Add Ur Microanalysis Reviewed Leukocyte Esterase Rfl Trace H (Negative) BILLIE/UL Urine RBC >100 H (0-2) /hpf Urine WBC 0-5 (0-3) /hpf Ur Squamous Epith Cells None seen (Few) /hpf Urine Bacteria 4+ H /hpf Urine Casts 0-2 Influenza A (RT-PCR) Negative (Negative) Influenza B (RT-PCR) Negative (Negative) RSV (RT-PCR) Negative (Negative) SARS-CoV-2 RNA (RT-PCR) Negative (Negative) Imaging Data Attestation: I personally reviewed and interpreted this imaging study as follows: My impression: Impressions Chest X-Ray 07/04/24 06:45 IMPRESSION: 1: NO ACUTE CARDIOPULMONARY DISEASE. Hand X-Ray 07/04/24 06:46 Impression: 1: No acute bone or joint abnormality. Head CT 07/04/24 06:53 IMPRESSION: 1. Small left subdural hematoma in the parietal location measuring 4 mm transverse on coronal images. 2: Possible small right subdural hematoma in the parietal region. Lumbar Spine CT 07/04/24 07:00 IMPRESSION: 1. Age-indeterminate superior endplate compression fracture of L2, new compared with CT dated 11/26/2021. 2: Severe lumbar spondylosis. Cervical Spine CT 07/04/24 07:04 IMPRESSION: 1. No acute abnormality of the cervical spine. Critical Care Time Critical Care Time Critical Care Time: Yes Total Critical Care Time: 65 Discharge Plan Discharge Clinical Impression: Acute subdural hematoma, Traumatic subdural hematoma (SDH), Fall from ground level, Skin tear Patient Disposition: Acute Care Hospital Condition: Serious Patient Language: Cook Islander Prescriptions: No Action dietary supplement Capsule See Rx Instructions .ROUTE .COMPLEX Patient Comments: CannaXL Hemp extract Rx Instructions: cap orally ;CannaXL Hemp extract zinc 50 mg tablet 50 mg PO DAILY cholecalciferol (vitamin D3) 50 mcg (2,000 unit) capsule 50 mcg PO DAILY polymyxin B sulf-trimethoprim 10,000 unit- 1 mg/mL drops 2 drp RIGHT EYE QID 5 Days Qty: 10 0RF Rx Instructions: while awake; do not exceed 6 doses in 24 hours ciprofloxacin HCl [Cipro] 500 mg tablet 500 mg PO Q12H Qty: 14 0RF gabapentin 100 mg capsule 100 mg PO BID Qty: 60 0RF naproxen 500 mg tablet 500 mg PO BID Qty: 60 0RF losartan 100 mg tablet 100 mg PO DAILY Qty: 90 1RF finasteride [Proscar] 5 mg tablet 5 mg PO QAM Qty: 90 1RF atenolol 25 mg tablet 25 mg PO DAILY Qty: 90 1RF clonidine HCl 0.1 mg tablet 0.1 mg PO DAILY PRN (Reason: hypertensive emergency) 90 Days Qty: 90 1RF Rx Instructions: If Systolic BP is over 150 tamsulosin 0.4 mg capsule See Rx Instructions .ROUTE .COMPLEX Qty: 90 1RF Dose Instruction: TAKE ONE CAPSULE BY MOUTH ONCE DAILY Patient Comments: Pt. states he takes at night Rx Instructions: TAKE ONE CAPSULE BY MOUTH ONCE DAILY Follow-up/Referrals: UNKNOWN,DOCTOR [Primary Care Provider] - Time of Disposition: 05:26
== END 2024-07-04 05:46 | disposition short-term general hospital (02) ==
LOC: ANHED 05:44
PROVIDERS: Emergency Provider Student in an Organized Health Care Education/Training Program
DX: S06.5X0A Traumatic subdural hemorrhage without loss of consciousness, initial encounter (principal); S61.411A Laceration without foreign body of right hand, initial encounter; Z20.822 Contact with and (suspected) exposure to COVID-19; F03.90 Unspecified dementia, unspecified severity, without behavioral disturbance, psychotic disturbance, mood disturbance, and anxiety; I11.9 Hypertensive heart disease without heart failure; E78.5 Hyperlipidemia, unspecified; N40.0 Benign prostatic hyperplasia without lower urinary tract symptoms; G31.84 Mild cognitive impairment of uncertain or unknown etiology; G47.33 Obstructive sleep apnea (adult) (pediatric); G62.9 Polyneuropathy, unspecified; Z66 Do not resuscitate; Z85.828 Personal history of other malignant neoplasm of skin; Z87.891 Personal history of nicotine dependence; Z79.899 Other long term (current) drug therapy; M47.816 Spondylosis without myelopathy or radiculopathy, lumbar region; S32.020A Wedge compression fracture of second lumbar vertebra, initial encounter for closed fracture; R94.31 Abnormal electrocardiogram [ECG] [EKG]; W19.XXXA Unspecified fall, initial encounter
CPT/HCPCS: 12001; 36415; 70450; 71046; 72125; 72131; 73130; 80053; 81001; 85025; 85055; 87637; 93005; 96360; 99284; 99285; J7120

== ENCOUNTER 2024-08-07 23:47 | Emergency (ER) | payer MEDICARE, SELFPAY ==
--- NOTE | ~2024-08-07 | CT_ITS ---
Non-contrast Head CT History: Status post fall, head injury COMPARISON: 07/04/2024 Technique: Axial non-contrast imaging of the brain was performed. Dose reduction technique was used on this scan by utilizing automated exposure control and iterative reconstruction technique. The dose -length product (DLP) was 756.67 mGy-cm. Findings: Possible minimal acute to subacute left cerebral convexity subdural hematoma. No other intr acranial hemorrhage or acute reality seen. Brain parenchyma appears normal. The ventricles and suba rachnoid spaces are normal in size. The calvarium appears normal. The visualized paranasal sinuses and mastoid air cells are clear. Impression: Possible minimal acute to subacute left cerebral convexity subdural hematoma, similar to prior exam. Reviewed, dictated and finalized at location M. [facility] [employer] Impression: Possible minimal acute to subacute left cerebral convexity subdural hematoma, s imilar to prior exam.
--- NOTE | ~2024-08-07 | CT_ITS ---
Non-contrast Head CT History: Head injury COMPARISON: 08/08/2024 Technique: Axial non-contrast imaging of the brain was performed. Dose reduction technique was used on this scan by utilizing automated exposure control and iterative reconstruction technique. The dose -length product (DLP) was 832.33 mGy-cm. Findings: Stable questionable tiny left cerebral convexity subdural hematoma.. Brain parenchyma appe ars normal. The ventricles and subarachnoid spaces are normal in size. The calvarium appears normal . The visualized paranasal sinuses and mastoid air cells are clear. Impression: Stable questionable tiny left cerebral convexity subdural hematoma. Reviewed, dictated and finalized at location M. GER EQUIPMENT Impression: Stable questionable tiny left cerebral convexity subdural hematoma.
--- NOTE | ~2024-08-07 | CT_ITS ---
Noncontrast CT scan of the cervical spine Technique: Multiple contiguous axial [address] images of the cervical spine were obtained and rec onstructed in 2D sagittal and coronal planes on the acquisition scanner. Dose reduction technique was used on this scan by utilizing automated exposure control, adjustment of the mA and/or kV according to patient size. The dose-length product (DLP) was 266.23 mGy-cm. Clinical History: Pain Findings: No fractures or dislocations. There is advanced degenerative disc narrowing C4-C5, C5-C6, and C6 and C7. Probable mild bilateral neuroforaminal narrowing at C3-C4, right worse than left, with mild facet arthropathy. There is left neural foraminal narrowing at C4-C5. There is bilateral neural foraminal narrowing at C5-C6 and C6-C7.. No prevertebral soft tissue swelling. Impression: No fracture or subluxation of the cervical spine. Degenerative spondylosis, as above, with multilevel neural foraminal narrowing. Reviewed, dictated and finalized at [facility]. ATION AND OUTREACH COORDINATOR Impression: No fracture or subluxation of the cervical spine. Degenerative spondylosis, as above, with multilevel neural foraminal narrowing.
--- NOTE | ~2024-08-07 | XR_ITS ---
Portable chest x-ray Comparison: 07/04/2024 Clinical History: Status post fall, pain Findings: Lungs are clear, without focal consolidation or pleural effusion. Cardiomediastinal silho uette is stable. Bones and soft tissues are unremarkable. Impression: Clear lungs. Reviewed, dictated and finalized at location . [facility] [employer] [facility] Impression: Clear lungs.
[2024-08-07 23:45] VITALS: BP 175/84; PULSE 58; RESP 12; TEMP 36.7; O2SAT 99
--- NOTE | 2024-08-07 23:59 | ED.FALL ---
HPI - Fall General Chief Complaint: Fall <RICH Kilpatrick Last Filed: 08/08/24 02:38> Stated Complaint: HEAD PAIN S/P FALL <RICH Kilpatrick Last Filed: 08/08/24 02:38> Time Seen by Provider: 08/07/24 23:51 <RICH Kilpatrick Last Filed: 08/08/24 02:38> History of Present Illness HPI Narrative: 83-year-old male with history of hypertension, dyslipidemia, dementia and CLAUDIO presents to the ED via EMS from [facility] for a mechanical ground level fall that occurred prior to arrival. Patient states he was walking with his rollator and forgot to lock the wheels. States the rollator started to we will away from him causing him to lose his balance and fall. Patient states he hit the back of his head but did not lose consciousness. He is not anticoagulated. He presents with a skin tear to his right distal forearm, bleeding controlled. Denies pain in this region. Last Tdap known. Patient denies other injuries acquired including neck pain, back pain, extremity injury. Denies vision changes, focal numbness or weakness. Patient arrives with C-collar in place. Per EMS report, patient is normally A&O x2, however on my evaluation patient is A&O x4 and answering all questions appropriately. Initially patient has yellow thick drainage to the right eye with ectropion. Patient states this is been like this for quite a while. Denies pain or injury to the eye. He is unsure if he has been on antibiotics recently for this. <RICH Kilpatrick Last Filed: 08/08/24 02:38> Related Data Home Medications: Home Medications ?Medication ?Instructions ?Recorded ?Confirmed ?Last Taken ?Type cholecalciferol (vitamin D3) 50 50 mcg PO DAILY 05/23/20 02/23/24 11/25/21 History mcg (2,000 unit) capsule zinc 50 mg tablet 50 mg PO DAILY 05/23/20 02/23/24 11/25/21 History dietary supplement See Rx Instructions .Route .COMPLEX 03/10/21 02/23/24 Unknown History <RICH Kilpatrick Last Filed: 08/08/24 02:38> Allergies/Adverse Reactions: Allergies Allergy/AdvReac Type Severity Reaction Status Date / Time amlodipine Allergy Intermediate HIVES, Verified 08/08/24 00:06 ITCHING hydrochlorothiazide Allergy Unknown RASH & Verified 08/08/24 00:06 ITCHING valsartan Allergy Unknown Hives Verified 08/08/24 00:06 <Kate Powers PA-C - Last Filed: 08/08/24 02:38> Review of Systems Review of Systems: All systems reviewed & are unremarkable except as noted in HPI and below <Kate Powers PA-C - Last Filed: 08/08/24 02:38> [facility] Past Medical History Medical History: Medical History Basal cell carcinoma of skin Chronic back pain Obstructive sleep apnea Neuropathy Dyslipidemia Left ventricular diastolic dysfunction, NYHA class 1 Essential hypertension <Kate Powers PA-C - Last Filed: 08/08/24 02:38> Surgical History Surgical History: Surgical History History of basal cell carcinoma excision jaw History of tonsillectomy <Kate Powers PA-C - Last Filed: 08/08/24 02:38> Family History Family History: Family History Father Hypertension, Onset Age: 88 <Kate Powers PA-C - Last Filed: 08/08/24 02:38> Social History Social History: Social History Social History: Patient wishes to be DNR and his POA is Miguel Pearsonlman who lives in [place]. Smoking packs per day: 0.5 Smoking cigarettes per day: 10.0 Years smoked: 2 Smoking pack-years: 1.00 Smoking status: Former smoker Tobacco type: cigarettes Second hand tobacco smoke exposure: No Smoking end date: 06/06/1960 Alcohol intake: current Drinks per week: 1 Alcohol use details: a glass a wine Substance use: never Substance use type: does not use Do You Feel Safe in your Home?: Yes Lack of Transportation: No Lack of Food: Never True Current Housing: I Have Housing Concerned About Future Housing: No Difficulty Paying Gas/Electric Bills: No Difficulty Paying for Meds: No Currently Unemployed: No Education: Master's Degree or Higher Difficulty w/ Childcare or Family Care: No Living arrangements: assisted living Additional living arrangements comments: . Lives at [facility]. Occupation/Education: retired Additional occupation/education comments: [employer] Spiritual care concerns: No Agree to blood products: Yes <Kate Powers PA-C - Last Filed: 08/08/24 02:38> Exam Narrative: GENERAL: Well-appearing, well-nourished, and in no acute distress. HEAD: Normocephalic. Contusion to the right posterior scalp with very small overlying abrasion, no bleeding EYES: PERRLA and EOMI. Right eye with lower lid ectropion and thick yellow drainage ENT: Nares clear, no rhinorrhea or epistaxis. Mucous membranes moist. NECK: C collar in place CHEST: Clear to auscultation. No respiratory distress. HEART: Regular rate and rhythm. No murmur heard. Normal peripheral pulses. ABDOMEN: Soft, nontender, nondistended, normal active bowel sounds. EXTREMITIES: Normal range of motion. No edema. No tenderness to bilateral upper lower extremities SKIN: Superficial skin tear to the ulnar aspect of the distal forearm with no active bleeding, no deep structures or foreign bodies visualized. Full active and passive range of motion of wrist without tenderness. No tenderness to palpation. Radial pulse 2 +. Sensation intact. Radial, median and ulnar nerves are intact NEURO: No focal deficits. Alert and oriented x4. Moving all extremities spontaneously <Kate Powers PA-C - Last Filed: 08/08/24 02:38> Course TOWER TRUCK DRIVER/PA Physician Supervision For this patient encounter, I reviewed the TOWER TRUCK DRIVER or PA documentation, treatment plan, and medical decision making; and I had [id number] time with this patient. <Mak Paulson MD - Last Filed: 08/08/24 05:35> Vital Signs Vital signs: Vital Signs Temperature 36.7 C 08/07/24 23:45 Pulse Rate 58 L 08/07/24 23:45 Respiratory Rate 12 08/07/24 23:45 Blood Pressure 175/84 H 08/07/24 23:45 Pulse Oximetry 99 08/07/24 23:45 Oxygen Delivery Room Air 08/07/24 23:45 Temperature 36.4 C 08/08/24 05:26 Pulse Rate 55 L 08/08/24 05:26 Respiratory Rate 13 08/08/24 05:26 Blood Pressure 140/83 08/08/24 05:26 Pulse Oximetry 98 08/08/24 05:26 Oxygen Delivery Room Air 08/07/24 23:45 <Kate Powers PA-C - Last Filed: 08/08/24 02:38> Vital Signs Temperature 36.7 C 08/07/24 23:45 Pulse Rate 58 L 08/07/24 23:45 Respiratory Rate 12 08/07/24 23:45 Blood Pressure 175/84 H 08/07/24 23:45 Pulse Oximetry 99 08/07/24 23:45 Oxygen Delivery Room Air 08/07/24 23:45 Temperature 36.4 C 08/08/24 05:26 Pulse Rate 55 L 08/08/24 05:26 Respiratory Rate 13 08/08/24 05:26 Blood Pressure 140/83 08/08/24 05:26 Pulse Oximetry 98 08/08/24 05:26 Oxygen Delivery Room Air 08/07/24 23:45 <Mak Paulson MD - Last Filed: 08/08/24 05:35> MDM - Fall MDM Narrative Medical decision making narrative: 83-year-old male presents to the emergency department via EMS from [facility] for a ground level mechanical fall. Patient's rollator rolled away from him and caused him to fall. He did hit his head but no LOC. He is not anticoagulated. Patient has no complaints other pain to the back of his head. C-collar is in place. No focal deficits on exam. He does have a skin tear to the distal right forearm with no active bleeding, deep structures or foreign bodies visualized. Tetanus updated in the ED and skin tear cleansed and dressed. CT cervical spine shows no evidence acute fracture or traumatic subluxation, no high-grade central canal stenosis, findings concerning for proximal descending thoracic aortia measuring 4.3 cm, previously seen is 3.9 on prior study. Patient denies any chest pain or shortness of breath. CT brain shows she suspected left convexity small acute on chronic subdural hematoma 4 mm in maximal thickness, similar to prior study. There is right complexity predominantly low attenuation subdural collection 3 mm, similar in appearance from prior study. No new acute intracranial hemorrhage, no midline shift or mass effect. I did contact the stat read radiologist to clarify if subdural hematoma looked unchanged from most recent subdural hematoma as seen on CT her on 07/04/2024. Radiologist, Dr. Murcia, discusses that although the CT brain cm unchanged, he is unable to identify if the patient reabsorbed prior hematoma and has re-bleed today in the same area. I [facility], Dr. Zuniga, who agrees with Dr. Murcia and advises repeat CT brain in 4 hours to evaluate for changes. Advises sooner repeat CT brain if changes in mental status or neurologic status. States if CT brain is negative, patient can be safely discharged. If CT brain is concerning for worsening bleed or patient's neurologic status changes, patient should be transferred to [facility] trauma. 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 This may be chronic given his history and he does have an specialist wound care listed on his paperwork from the senior living, however I am concerned is acutely infected so will start him on Polytrim ocular drops. Pending repeat CT brain at time of sign-out to Dr. Paulson. <Kate Powers PA-C - Last Filed: 08/08/24 02:38> 83-year-old male presents to the emergency department via EMS from [facility] for a ground level mechanical fall. Patient's rollator rolled away from him and caused him to fall. He did hit his head but no LOC. He is not anticoagulated. Patient has no complaints other pain to the back of his head. C-collar is in place. No focal deficits on exam. He does have a skin tear to the distal right forearm with no active bleeding, deep structures or foreign bodies visualized. Tetanus updated in the ED and skin tear cleansed and dressed. CT cervical spine shows no evidence acute fracture or traumatic subluxation, no high-grade central canal stenosis, findings concerning for proximal descending thoracic aortia measuring 4.3 cm, previously seen is 3.9 on prior study. Patient denies any chest pain or shortness of breath. CT brain shows she suspected left convexity small acute on chronic subdural hematoma 4 mm in maximal thickness, similar to prior study. There is right complexity predominantly low attenuation subdural collection 3 mm, similar in appearance from prior study. No new acute intracranial hemorrhage, no midline shift or mass effect. I did contact the stat read radiologist to clarify if subdural hematoma looked unchanged from most recent subdural hematoma as seen on CT her on 07/04/2024. Radiologist, Dr. Murcia, discusses that although the CT brain cm unchanged, he is unable to identify if the patient reabsorbed prior hematoma and has re-bleed today in the same area. I consulted [facility] neuro[facility], Dr. Zuniga, who agrees with Dr. Murcia and advises repeat CT brain in 4 hours to evaluate for changes. Advises sooner repeat CT brain if changes in mental status or neurologic status. States if CT brain is negative, patient can be safely discharged. If CT brain is concerning for worsening bleed or patient's neurologic status changes, patient should be transferred to [facility] trauma. 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 This may be chronic given his history and he does have an specialist wound care listed on his paperwork from the senior living, however I am concerned is acutely infected so will start him on Polytrim ocular drops. Pending repeat CT brain at time of sign-out to Dr. Paulson. CT head showed no acute changes due to this the patient will be able to be discharged back <Mak Paulson MD - Last Filed: 08/08/24 05:35> Lab Data Result diagrams: 08/08/24 02:35 08/08/24 02:35 <Kate Powers PA-C - Last Filed: 08/08/24 02:38> Labs: Lab Results 08/08/24 08/08/24 Range/Units 02:35 02:51 WBC 6.6 (4.5-10.0) K/mm3 RBC 4.46 L (4.6-6.20) M/mm3 Hgb 13.4 L (14.0-18.0) g/dL Hct 41.3 L (42.0-52.0) % MCV 92.6 (80-100) fl MCH 30.0 (26-34) pg MCHC 32.4 (32-36) g/dl RDW 13.6 (11.5-14.5) % Plt Count 112 L (150-375) k/mm3 MPV 9.8 (7.4-10.4) fl Immature Gran % (Auto) 0.3 (0-0.5) % Neut % (Auto) 64.6 (45.5-73.1) % Lymph % (Auto) 24.2 (18.3-44.2) % Meagher % (Auto) 6.5 (2.6-8.5) % Eos % (Auto) 3.8 (0-4.4) % Baso % (Auto) 0.6 (0.2-1.2) % Lymph # (Auto) 1.60 (0.9-3.2) K/mm3 Meagher # (Auto) 0.4 (0.1-0.6) K/mm3 Eos # (Auto) 0.3 (0-0.3) K/mm3 Baso # (Auto) 0.0 (0.0-0.1) K/mm3 Abs Immat Gran (auto) 0.02 (0.00-0.031) K/mm3 Absolute Neuts (auto) 4.3 (1.3-6.7) K/mm3 Absolute Nucleated RBC 0.000 (0.0-0.012) K/mm3 Nucleated RBC % 0.0 (0.0-0.2) % % Immature Plt Fraction 2.7 (0.9-11.2) % Sodium 138 (137-145) mmol/L Potassium 3.8 (3.4-5.0) mmol/L Chloride 104 (98-107) mmol/L Carbon Dioxide 26 (22-30) mmol/L Anion Gap 8 (4-12) mmol/L BUN 32 H D (9-20) mg/dL Creatinine 0.90 (0.7-1.3) mg/dL Estim Creat Clear Calc 60 ml/min Estimated GFR > 60 (59 - ) Glucose 87 (65-110) mg/dL Calcium 8.2 L (8.4-10.2) mg/dL Total Bilirubin 0.9 (0.2-1.3) mg/dL AST 14 L (17-59) U/L ALT 12 (6-50) U/L Alkaline Phosphatase 62 (38-126) U/L Total Protein 5.0 L (6.3-8.2) g/dL Albumin 3.2 L (3.5-5.1) g/dL Urine Color Yellow (Yellow) Urine Appearance Cloudy H (Clear) Urine pH 6.0 (5.0-9.0) Ur Specific [place] 1.016 (1.001-1.035) Urine Protein Trace (Negative) mg/dL Urine Glucose (UA) Negative (Negative) mg/dL Urine Ketones Trace H (Negative) mg/dL Ur Blood (Man) Negative (Negative) Urine Nitrate Negative (Negative) Urine Bilirubin Negative (Negative) Urine Urobilinogen 0.2 (<2.0) mg/dL Add Ur Microanalysis Reviewed Leukocyte Esterase Rfl 1+ H (Negative) BILLIE/UL Urine RBC 51-100 H (0-2) /hpf Urine WBC 0-5 (0-3) /hpf Ur Squamous Epith Cells None seen (Few) /hpf Urine Bacteria 4+ H /hpf Urine Casts 0-2 <Kate Powers PA-C - Last Filed: 08/08/24 02:38> Lab Results 08/08/24 08/08/24 Range/Units 02:35 02:51 WBC 6.6 (4.5-10.0) K/mm3 RBC 4.46 L (4.6-6.20) M/mm3 Hgb 13.4 L (14.0-18.0) g/dL Hct 41.3 L (42.0-52.0) % MCV 92.6 (80-100) fl MCH 30.0 (26-34) pg MCHC 32.4 (32-36) g/dl RDW 13.6 (11.5-14.5) % Plt Count 112 L (150-375) k/mm3 MPV 9.8 (7.4-10.4) fl Immature Gran % (Auto) 0.3 (0-0.5) % Neut % (Auto) 64.6 (45.5-73.1) % Lymph % (Auto) 24.2 (18.3-44.2) % Meagher % (Auto) 6.5 (2.6-8.5) % Eos % (Auto) 3.8 (0-4.4) % Baso % (Auto) 0.6 (0.2-1.2) % Lymph # (Auto) 1.60 (0.9-3.2) K/mm3 Meagher # (Auto) 0.4 (0.1-0.6) K/mm3 Eos # (Auto) 0.3 (0-0.3) K/mm3 Baso # (Auto) 0.0 (0.0-0.1) K/mm3 Abs Immat Gran (auto) 0.02 (0.00-0.031) K/mm3 Absolute Neuts (auto) 4.3 (1.3-6.7) K/mm3 Absolute Nucleated RBC 0.000 (0.0-0.012) K/mm3 Nucleated RBC % 0.0 (0.0-0.2) % % Immature Plt Fraction 2.7 (0.9-11.2) % Sodium 138 (137-145) mmol/L Potassium 3.8 (3.4-5.0) mmol/L Chloride 104 (98-107) mmol/L Carbon Dioxide 26 (22-30) mmol/L Anion Gap 8 (4-12) mmol/L BUN 32 H D (9-20) mg/dL Creatinine 0.90 (0.7-1.3) mg/dL Estim Creat Clear Calc 60 ml/min Estimated GFR > 60 (59 - ) Glucose 87 (65-110) mg/dL Calcium 8.2 L (8.4-10.2) mg/dL Total Bilirubin 0.9 (0.2-1.3) mg/dL AST 14 L (17-59) U/L ALT 12 (6-50) U/L Alkaline Phosphatase 62 (38-126) U/L Total Protein 5.0 L (6.3-8.2) g/dL Albumin 3.2 L (3.5-5.1) g/dL Urine Color Yellow (Yellow) Urine Appearance Cloudy H (Clear) Urine pH 6.0 (5.0-9.0) Ur Specific [place] 1.016 (1.001-1.035) Urine Protein Trace (Negative) mg/dL Urine Glucose (UA) Negative (Negative) mg/dL Urine Ketones Trace H (Negative) mg/dL Ur Blood (Man) Negative (Negative) Urine Nitrate Negative (Negative) Urine Bilirubin Negative (Negative) Urine Urobilinogen 0.2 (<2.0) mg/dL Add Ur Microanalysis Reviewed Leukocyte Esterase Rfl 1+ H (Negative) BILLIE/UL Urine RBC 51-100 H (0-2) /hpf Urine WBC 0-5 (0-3) /hpf Ur Squamous Epith Cells None seen (Few) /hpf Urine Bacteria 4+ H /hpf Urine Casts 0-2 <Mak Paulson MD - Last Filed: 08/08/24 05:35> Discharge Plan Discharge Clinical Impression: Closed head injury Qualifiers: Encounter type: initial encounter Qualified Code(s): S09.90XA - Unspecified injury of head, initial encounter Conjunctivitis Qualifiers: Conjunctivitis type: unspecified Laterality: right Qualified Code(s): H10.9 - Unspecified conjunctivitis Aneurysm, thoracic aortic Qualifiers: Thoracic aorta location: descending thoracic aorta Presence of rupture: without rupture Qualified Code(s): I71.23 - Aneurysm of the descending thoracic aorta, without rupture <Kate Powers PA-C - Last Filed: 08/08/24 02:38> Patient Disposition: [facility] Living <Kate Powers PA-C - Last Filed: 08/08/24 02:38> Condition: Stable <Kate Powers PA-C - Last Filed: 08/08/24 02:38> Instructions: Antibiotic Form, Head Injury (ED), Skin Tear (ED), Conjunctivitis (ED), Descending Thoracic Aortic Aneurysm (DC) <Kate Powers PA-C - Last Filed: 08/08/24 02:38> Additional Instructions: Follow-up with your primary care provider and eye doctor. Also follow-up with vascular surgery at [facility] for your thoracic aortic aneurysm at [phone] <Kate Powers PA-C - Last Filed: 08/08/24 02:38> Patient Language: Spanish <Kate Powers PA-C - Last Filed: 08/08/24 02:38> Prescriptions: New polymyxin B sulf-trimethoprim 10,000 unit- 1 mg/mL drops 1 drp RIGHT EYE Q3H 7 Days Qty: 10 0RF Rx Instructions: while awake; do not exceed 6 doses in 24 hours No Action dietary supplement Capsule See Rx Instructions .ROUTE .COMPLEX Patient Comments: CannaXL Hemp extract Rx Instructions: cap orally ;CannaXL Hemp extract zinc 50 mg tablet 50 mg PO DAILY cholecalciferol (vitamin D3) 50 mcg (2,000 unit) capsule 50 mcg PO DAILY polymyxin B sulf-trimethoprim 10,000 unit- 1 mg/mL drops 2 drp RIGHT EYE QID 5 Days Qty: 10 0RF Rx Instructions: while awake; do not exceed 6 doses in 24 hours ciprofloxacin HCl [Cipro] 500 mg tablet 500 mg PO Q12H Qty: 14 0RF gabapentin 100 mg capsule 100 mg PO BID Qty: 60 0RF naproxen 500 mg tablet 500 mg PO BID Qty: 60 0RF losartan 100 mg tablet 100 mg PO DAILY Qty: 90 1RF finasteride [Proscar] 5 mg tablet 5 mg PO QAM Qty: 90 1RF atenolol 25 mg tablet 25 mg PO DAILY Qty: 90 1RF clonidine HCl 0.1 mg tablet 0.1 mg PO DAILY PRN (Reason: hypertensive emergency) 90 Days Qty: 90 1RF Rx Instructions: If Systolic BP is over 150 tamsulosin 0.4 mg capsule See Rx Instructions .ROUTE .COMPLEX Qty: 90 1RF Dose Instruction: TAKE ONE CAPSULE BY MOUTH ONCE DAILY Patient Comments: Pt. states he takes at night Rx Instructions: TAKE ONE CAPSULE BY MOUTH ONCE DAILY <Kate Powers PA-C - Last Filed: 08/08/24 02:38> Follow-up/Referrals: UNKNOWN,DOCTOR [Primary Care Provider] - <Kate Powers PA-C - Last Filed: 08/08/24 02:38> Time of Disposition: 05:34 <Kate Powers PA-C - Last Filed: 08/08/24 02:38> 05:34 <Mak Paulson MD - Last Filed: 08/08/24 05:35> Sign Out Sign Out Data: Patient Sign Out occurred on 08/08/24 at 03:05. Patient's care was discussed, and care was transferred from Kate Powers PA-C to Mak Paulson MD. <Kate Powers PA-C - Last Filed: 08/08/24 02:38>
[2024-08-08] MEDS: TETANUS,DIPHTHERIA,AC PERTUSSIS ADULT (0.5 ML) BOOSTRIX IM (00:03)
--- OUTSIDE RECORDS SUMMARY | 2024-08-08 00:09 | XMS_ITS | Encounter Summary ---
Author Organization [facility] Address [address] 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
--- OUTSIDE RECORDS SUMMARY | 2024-08-08 00:09 | XMS_ITS | Clinical Summary ---
Author Organization [facility] salomon Address [address] [place] [address] Phone Care Team Providers Care Industrial Coffee Grinder Name Role Phone Eric French MD Primary Care Provider [phone] Allergies Active Allergy Reactions Criticality Noted Date [...] Comments Blood Pressure 162/80 05/05/2022 2:40 PM MILL REPRESENTATIVE Pulse 60 05/05/2022 2:40 PM MILL REPRESENTATIVE Temperature 35.3 C (95.5 F) 05/05/2022 2:40 PM MILL REPRESENTATIVE Respiratory Rate - - Oxygen Saturation - - Inhaled Oxygen Concentration - - Weight 89.4 kg (197 lb) 05/05/2022 2:40 PM MILL REPRESENTATIVE Height 182.9 cm (6') 05/05/2022 2:40 PM MILL REPRESENTATIVE Body Mass Index 26.72 05/05/2022 2:40 PM MILL REPRESENTATIVE Plan of Treatment Health Maintenance Due Date Last Done Comments Pneumococcal PPSV23/PCV13 65 + Years / High and Highest Risk (1 of 4 - PCV) 1946 Influenza Vaccine (#1) 2024 Care Teams Industrial Coffee Grinder Relationship Specialty Start Date End Date Eric French MD [address] [place] [id number] PCP - General Internal Medicine 05/05/22
--- OUTSIDE RECORDS SUMMARY | 2024-08-08 00:09 | XMS_ITS | Encounter Summary ---
Author Organization [facility] Address [address] [place] [address] Care Team Providers Care Copy Editor Name Role Phone Jeremy Carreon MD Primary Care Provider [phone] Encounter Details Date Type Department Care Team (Latest Contact Info) Description 07/08/2006 Outpatient Historical HIS [facility] SINAI Boyd, MD Aristeo [address] [facility] [address] [place] [address] Routine General Medical Examination at a Health Care Facility (Primary Dx) Social History Tobacco Use Types Packs/Day Years Used Date Smoking Tobacco: Never Assessed Sex and Gender Information Value Date Recorded Sex Assigned at Not on file Legal Sex Male 3:20 AM BENEFITS ASSISTANT Gender Identity Not on file Sexual Orientation Not on file documented as of this encounter Plan of Treatment Not on file documented as of this encounter Procedures Procedure Name Priority Date/Time Associated Diagnosis Comments URINALYSIS WITH MICROSCOPIC Routine 07/08/2006 10:56 AM BENEFITS ASSISTANT TSH WITH REFLEX FT4 AND FT3 Routine 07/08/2006 10:53 AM BENEFITS ASSISTANT CBC WITH DIFFERENTIAL Routine 07/08/2006 10:53 AM BENEFITS ASSISTANT CBC WITH DIFFERENTIAL Routine 07/08/2006 10:53 AM BENEFITS ASSISTANT PSA Routine 07/08/2006 10:53 AM BENEFITS ASSISTANT LIPID PANEL Routine 07/08/2006 10:53 AM BENEFITS ASSISTANT COMPREHENSIVE METABOLIC PANEL Routine 07/08/2006 10:53 AM BENEFITS ASSISTANT documented in this encounter Results * URINALYSIS WITH MICROSCOPIC (07/08/2006 10:56 AM BENEFITS ASSISTANT) COLOR UA Yellow INTERFACE SYSTEM CLARITY UA [...] /HPF INTERFACE SYSTEM 07/08/2006 10:5 6 AM BENEFITS ASSISTANT Aristeo Boyd MD URINE ORDERABLES Edited Performing Organization Address [facility] Phone Number INTERFACE SYSTEM Refer to clinic/hospital department * CBC WITH DIFFERENTIAL (07/08/2006 10:53 AM BENEFITS ASSISTANT) NEUTROPHILS 63 45 - 70 % INTERFAC [...] K/uL INTERFACE SYSTEM 07/08/2006 10:5 3 AM BENEFITS ASSISTANT Aristeo Boyd MD HEMATOLOGY ORDERABLES Edited Performing Organization Address [facility] Phone Number INTERFACE SYSTEM Refer to clinic/hospital department * (ABNORMAL) CBC WITH DIFFERENTIAL (07/08/2006 10:53 AM BENEFITS ASSISTANT) WBC 10.0(H) 4.0 - 9.8 K/uL INTERFACE [...] fL INTERFACE SYSTEM 07/08/2006 10:5 3 AM BENEFITS ASSISTANT Aristeo Boyd MD HEMATOLOGY ORDERABLES Edited Performing Organization Address [facility] Co de Phone Number INTERFACE SYSTEM Refer to clinic/hospital department * TSH WITH REFLEX FT4 AND FT3 (07/08/2006 10:53 AM BENEFITS ASSISTANT) TSH 2.14 0.27 - 4.20 uU/mL INTERFACE SYSTEM 07/08/2006 10:5 3 AM BENEFITS ASSISTANT Aristeo Boyd MD CHEMISTRY ORDERABLES Edited Performing Organization Address City/[facility]/ZIP Co de Phone Number INTERFACE SYSTEM Refer to clinic/hospital department * PSA (07/08/2006 10:53 AM BENEFITS ASSISTANT) PSA 1.9 0.0 - 4.0 ng/mL INTERFACE SYSTEM Comment:Performed on Donita M odular E170 System 07/08/2006 10:5 3 AM BENEFITS ASSISTANT Aristeo Boyd MD CHEMISTRY ORDERABLES Edited INTERFACE SYSTEM Refer to clinic/hospital department * (ABNORMAL) LIPID PANEL (07/08/2006 10:53 AM BENEFITS ASSISTANT) CHOLESTEROL 204(H) 100 - 199 mg/dL INTERFACE SYSTEM TRIGLYCERIDE 225(H) 10 - 149 mg/dL INTERFACE SYSTEM HDL 48 40 - 59 mg/dL INTERFACE SYSTEM CHOL/HDL RATIO 4.3 2.0 - 5.0 INTER FACE SYSTEM LDL CALCULATED 111(H) <=99 mg/dL INTERFACE SYSTEM LIPID PANEL COMMENT See Below INTERFACE SYSTEM Comment: The adult ATP and pediatric NCEP classifications for lipids are available on the [facility] at: [email or web address] Select: Lab Policies and Procedures Select: Reference Ranges - Lipids 07/08/2006 10:5 3 AM BENEFITS ASSISTANT Airsteo Boyd MD CHEMISTRY ORDERABLES Edited INTERFACE SYSTEM Refer to clinic/hospital department * COMPREHENSIVE METABOLIC PANEL (07/08/2006 10:53 AM BENEFITS ASSISTANT) GLUCOSE 90 65 - 99 mg/dL INTERFACE [...] and non- Americans is available on the [facility] Intran[facility] at: [email or web address] Select: Lab Policies and Procedures Select: Reference Ranges - GFR 07/08/2006 10:5 3 AM BENEFITS ASSISTANT us Aristeo Boyd MD CHEMISTRY ORDERABLES Edited INTERFACE SYSTEM Refer to clinic/hospital department documented in this encounter Visit Diagnoses Diagnosis Routine general medical examination at a health care facility- Primary documented in this encounter Care Teams Copy Editor Relationship Specialty Start Date End Date Jeremy Carreon MD [address] [place] [phone] PCP - General Internal Medicine 05/17/19 02/14/23 documented as of this encounter
--- OUTSIDE RECORDS SUMMARY | 2024-08-08 00:09 | XMS_ITS | Clinical Summary ---
Author Organization [facility] Address [address] [place] [address] Care Team Providers Care Autocad Operator Name Role Phone Unavailable Primary Care Provider [...] 55 10/18/2022 10:14 AM CDT Temperature 36.8 C (98.3 F) 10/18/2022 10:14 AM CDT Respiratory Rate 16 10/18/2022 10:14 AM CDT [...] Years (1 - 1-dose 75+ series) 2017 COVID-19 Vaccine ( - 2023-2 5 season) 2024 Influenza Adult (#1) 2024 04/06/2022 PHQ-2 (Physician [place]) 06/06/2024 Meningococcal B Vaccine Aged Out No l onger eligible based on patient's age to complete this topic Meningococcal Vaccine Aged Out No tyler soumya eligible based on patient's age to complete this topic RSV Immunizations Under 20 Months Aged Out No longer eligible based on patient's age to complete this topic Insurance [facility]
--- OUTSIDE RECORDS SUMMARY | 2024-08-08 00:09 | XMS_ITS | Continuity of Care Document ---
Author Organization [facility] Address [id number] [place] [address] [address] [place] [address] Phone Care Team Providers Care Teacher Specialist Name Role Phone Carlos DICKINSON, Emy Unavailable Unavailable Allergies, Adverse Reactions, Alerts Substance Reaction Status Criticality hydrochlorothiazide Active No Infor mation amlodipine Active No Information cephalexin Active No Information Medications Medication Instructions Dosage Effective Dates (start - stop) Status Comments atenolol 25 mg tablet - Active multivitamin tablet - Active spironolactone (unknown strength) Not Available - Active tamsulosin 0.4 mg capsule - Active losartan (unknown strength) Not Available - Active Procedures Procedure Date EYE EXAM & TREATMENT OFFICE/OUTPATIENT VISIT, EST SPECIAL EYE EXAM, SUBSEQUENT RIGHT EYE M SPECIAL EYE EXAM, SUBSEQUENT LEFT EYE Ma OFFICE/OUTPATIENT VISIT, NEW OFFICE/OUTPATIENT VISIT, NEW SPECIAL EYE EXAM, INITIAL SPECIAL EYE EXAM, INITIAL Advance Directives Directive Yes / No Effective Date File Name No Information Encounters Encounter Description Practice Location Reason(s) For Visit Diagnoses Date Provider Providers Copied on Encounter [facility], [address], [place], [place], [id number], [place] tel:[phone] OPH CONSULT CAROL VALENTIN blurry vision (chief complaint) Cataract, nuclear sclerotic senile, bilateralEctrop ion of both eyes, unspecified ectropion type, unspecified eyelidVitreous degeneration of both eyes 1 Carlos Quevedo. [address], [place], [address], [place]. [phone] Referring Provider: Jeremy Carreon MD, [address], [place], [address]. tel:[phone] OFFICE/OUTPA TIENT VISIT, [facility], [address] [place] [address], [place], [place], [id number], [place] tel:[phone] OPH CONSULT CAROL VALENTIN dryness (chief complaint) Vitreous degeneration of both eyesCataract, nuclear sclerotic senile, bilateralEctrop ion of both eyes, unspecified ectropion type, unspecified eyelid 8 Carlos Quevedo. [address], [address], [place], [address], [place]. [phone] Referring Provider: Emy iKngsley, [address], [place], [address]. tel:[phone] OFFICE/OUTPA TIENT VISIT, [facility], [address] [place] [address], [place], [place], [id number], [place] tel:[phone] OPH CONSULT CAROL VALENTIN blurry vision (chief complaint) Vitreous degeneration of both eyesCataract, nuclear sclerotic senile, bilateral 5 Carlos Quevedo. [address], [address], [place], [address], [place]. [phone] Referring Provider: Emy Kingsley, [address], [place], [address]. tel:[phone] OFFICE/OUTPA TIENT VISIT, [facility], [address] [place] [address], [place], [place], [id number], [place] tel:[phone] OPH CONSULT CAROL VALENTIN eyes doing well, without complaint. (chief complaint) Senile nuclear sclerosisVitreo us degeneration 2 Roque Nick. [address], [address], [place], [place], [id number] , [place]. [phone] Family History Family Member Type Diagnosis Age At Onset Mother Problem (finding) Glaucoma Payers Payer name Insurance type Covered alliance party ID Authorhenry rainey(s) [employer] HMO [id number] Social History Type Description Quantity Date Captured Comments Alcohol Use Details Caffeine Use Details Unknown Tobacco Use Status Current non-smoker Smoking Status Never smoker Sex Male Vital Signs Date / Time: Height Weight BMI Pulse Rate Blood Pressure Temperature Respiratory Rate Body Surface Area Head Circumference BMI percentile Pulse Ox Inhaled Ox 1:06 PM 71.00 in 207.00 lbs 28.8 7 kg/m eter (2) 98.10 F Chief Complaint And Reason For Visit From encounter dated '09/02/2020 13:20'. blurry vision (chief complaint). Description: The 80 year old male presents for evaluation of blurry vision in the right eye and left eye. It started about 2 year(s) ago. The condition is constant. The condition is mild. Plan Of Treatment Date Type Action Status No Information History Of Present Illness Encounter Date Complaint History Of Prese nt Illness blurry vision The 80 year old male presents for evaluation of blurry vision in the right eye and left eye. It started about 2 year(s) ago. The condition is constant. The condition is mild. dryness The 77 year old male presents for evaluation of dryness in the right eye and left eye. It started about 1 year(s) ago. It occurs weekly. VA is not affected. The condition is mild. Pt states he has occasional dryness due to his C-Pap machine. He uses ATs a couple of times per week. Distance VA is good, is not bothered by glare/halos. Wears OTC readers. blurry vision The 74 year old male presents for evaluation of blurry vision in the right eye and left eye. It started about 1 year(s) ago. The symptom is constant. The condition is moderate. Pt states vision in the distance and reading is getting slightly blurry. Does wear OTC Readers. Things are not as sharp in both distances Instructions Date Instruction Additional Infor mation Impression/Plan Related to Catar act, nuclear sclerotic senile, bilateral Impression/Plan Related to Ectro pion of both eyes, unspecified ectropion type, unspecified eyelid Impression/Plan Related to Vitre ous degeneration of both eyes Impression/Plan Related to Catar act, nuclear sclerotic senile, bilateral Impression/Plan Related to Vitre ous degeneration of both eyes Impression/Plan Related to Ectro pion of both eyes, unspecified ectropion type, unspecified eyelid Impression/Plan - Ca taracts account for the patient's complaints. No treatment currently recommended. The patient will monitor vision changes and contact us with any decrease in vision. Related to Cataract, nuclear sclerotic senile, bilateral Impression/Plan - Al l signs and risks of retinal detachment and tears were discussed in detail. Patient instructed to call the office immediately if any symptoms noted. Related to Vitreous degeneration of both eyes Follow up - Return i n 1 year with for Complete Exam. Vitreous Detachment, OS - Discussed diagnosis with patient. Will continue to monitor condition. Related to Vitreous Detachment Cataract, Nuclear Sc lerosis, OU - Early cataract(s) accounts for patient's complaints. No treatment currently recommended due to VA level, Patient will monitor vision changes and contact us with any decrease in vision, will re-evaluate cataract on return visit. Related to Cataract, Nuclear Sclerosis Assessments Type Assessment Date assessment Cataract, nuclear sclerotic lillian le, bilateral impression Cataract, nuclear sc lerotic senile, bilateral: H25.13. Bilateral assessment Ectropion of both ey es, unspecified ectropion type, unspecified eyelid impression Ectropion of both ey es, unspecified ectropion type, unspecified eyelid: H02.103. Bilateral assessment Vitreous degeneration of both ey es impression Vitreous degeneration of both ey es: H43.813
--- OUTSIDE RECORDS SUMMARY | 2024-08-08 00:09 | XMS_ITS | Encounter Summary ---
Author Organization [facility] Address [address] [place] [address] Care Team Providers Care Waste Reclaimer Name Role Phone Jeremy Carreon MD Primary Care Provider [phone] Encounter Details Date Type Department Care Team (Latest Contact Info) Description 12/10/2003 Outpatient Historical [facility] SINAI Boyd, MD [address] 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
--- OUTSIDE RECORDS SUMMARY | 2024-08-08 00:09 | XMS_ITS | Encounter Summary ---
Author Organization [facility] Address [address] [place] [address] Care Team Providers Care Net Developer Programmer Name Role Phone Jeremy Carreon MD Primary Care Provider [phone] Encounter Details Date Type Department Care Team (Latest Contact Info) Description 03/27/[address] [facility] SINAI Boyd, MD [place] [facility] [address] [place] [address] HYPERTENSION NOS (Primary Dx) Social History Tobacco Use Types Packs/Day Years Used Date Smoking Tobacco: Never Assessed Sex and Gender Information Value Date Recorded Sex Assigned at Not on file Legal Sex Male 3:20 AM INSOLE ROUNDER Gender Identity Not on file Sexual Orientation Not on file documented as of this encounter Plan of Treatment Not on file documented as of this encounter Visit Diagnoses Diagnosis Unspecified essential hypertension- Primary documented in this encounter Care Teams Net Developer Programmer Relationship Specialty Start Date End Date [place] [phone] PCP - General Internal Medicine 05/17/19 02/14/23 documented as of this encounter
--- OUTSIDE RECORDS SUMMARY | 2024-08-08 00:09 | XMS_ITS | Data Portability ---
Author Organization [place] [facility] [employer] Address [address] [place] [address] Care Team Providers Care Circus Hand Name Role Phone MARK ANTHONY TORREZ Regional Sales Director OMID CANALES Manager Ct GLORIA SAUNDERS Cotton Jammer CHERY VACA Medical Oncologist [phone] MO CARMEN OTHER Assessment Encounter Date Assessment Date Assessment LastModified by Organization Details LastModified Time 02/21/2023 02/21/2023 Medication Changes DENISE obtained. Records requested. labs to eval levels [...] counseling/educa ting patient; documenting clinical information in patient s chart; coordination of care for the [...] plan. F/U 12 weeks, sooner if needed [email or web address] Not available 03/21/2023 12:42:27 06/14/2023 06/14/2023 Medication [...] 12 weeks, sooner if needed Not available 06/14/2023 18:20:43 07/12/2023 07/12/2023 Medication Changes Having significant joint pain along with low back, hip pain. Having notable deficits with self-care and ADL. PT/OT ordered. Increased fall risk. Taking Naproxen BID for pain which has been helping. However, did discuss about NSAIDs and kidney function. Counseled on ensuring to drink appropriate fluid levels. 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 HTN controlled with medication but slightly elevated [...] plan. F/U 12 weeks, sooner if needed [email or web address] Not available 07/13/2023 07:29:53 08/03/2023 08/03/2023 Medication [...] counseling/educa ting patient; documenting clinical information in patient s chart; coordination of care for the patient). This time does not include time spent in any separately reportable services. [email or web address] Not available 08/04/2023 07:06:09 Plan of Treatment Reminders Order Date Submit Date Provider Last Modified By Organization Details Last Modified Time Details Appointments None recorded. Lab unlisted lab - complete blood count with auto diff* [address], [place], [address], 4 13:42:47 CMP, serum or plasma [address], [place], [address], 4 13:42:48 magnesium, serum or plasma [address], [place], [address], 4 13:42:49 iron, serum [address], [place], [address], 4 13:42:49 vitamin B12, serum [address], [place], [address], 4 13:42:50 unlisted lab - folate [address], [place], [address], 4 13:42:48 CMP, serum or plasma [address], [place], [address], 3 12:29:59 unlisted lab - complete blood count with auto diff* 2022 023 [email or web address], [address], [place], [address], 3 12:30:00 magnesium, serum or plasma 2022 023 [facility], [address], [place], [address], 3 12:29:59 Referral occupation al therapist referral 2023 024 [email or web address] [place], [address], [place], [address], 4 13:43:41 physical therapist referral 2023 024 [email or web address] [place], [address], [place], [address], 4 13:43:24 physical therapist referral 2023 024 [email or web address] [place], [address], [place], [address], 4 13:43:54 dermatolog ist referral - Back of scalp 2022 023 [email or web address] [facility] [place], [address], [place], [address], 3 12:05:49 Procedures None recorded. Surgeries None recorded. Imaging XR, hip + pelvis, unilateral , 4 or more view 2023 024 [facility] ([facility]), [address], [place], [address], 4 14:50:42 XR, sacrum + coccyx, 2 or more view 2023 024 [email or web address] [facility] ([facility]), [address], [place], [address], 4 15:47:01 XR, lumbar spine, 2 view 2023 024 [facility] ([facility]), [address], [place], [address], 4 15:47:13 XR, thoracic spine, 3 view 2022 023 [email or web address] [facility] ([facility]), [address], [place], [address], 3 19:33:44 Medication Orders None recorded. Patient TargetsNo targets recorded. Patient Instructions Encounter Date Encounter Id Patient Instructions Last Modified By Organization Details Last Modified Time 02/21/2023 [id number] care plan* Not available 02/04 16:44:58 Reason for Referral Cotton Jammer Referral for N eoplasm of uncertain behavior [...] [facility] [address], [place], [address], 03/02/2023 12:21:36 03/01/20 23 03/01/2023 COMPL ETE BLOOD COUNT WITH AUTO DIFF* RBC 4.97 10E6/ uL 4.60-6 .00 Not Available [facility] [address], [place], [address], 03/02/2023 12:21:36 03/01/20 23 03/01/2023 COMPL ETE BLOOD COUNT WITH AUTO DIFF* HGB 15.4 g/dL 14.0-1 8.0 Not Available [facility] [address], [place], [address], 03/02/2023 12:21:36 03/01/20 23 03/01/2023 COMPL ETE BLOOD COUNT WITH AUTO DIFF* HCT 45.7 % 40.0-5 4.0 Not Available [facility] [address], [place], [address], 03/02/2023 12:21:36 03/01/20 23 03/01/2023 COMPL ETE BLOOD COUNT WITH AUTO DIFF* MCV 92 fL 80-100 Not Available [facility] [address], [place], [address], 03/02/2023 12:21:36 03/01/20 23 03/01/2023 COMPL ETE BLOOD COUNT WITH AUTO DIFF* MCH 31 pg 26-32 Not Available [facility] [address], [place], [address], 03/02/2023 12:21:36 03/01/20 23 03/01/2023 COMPL ETE BLOOD COUNT WITH AUTO DIFF* MCHC 34 g/dL 32-36 Not Available [facility] [address], [place], [address], 03/02/2023 12:21:36 03/01/20 23 03/01/2023 COMPL ETE BLOOD COUNT WITH AUTO DIFF* RDW 13.6 % 11.5-1 4.5 Not Available [facility] [address], [place], [address], 03/02/2023 12:21:36 09/26/20 23 03/01/2023 COMPL ETE BLOOD COUNT WITH AUTO DIFF* plt 136 10E3/ uL 150-45 0 low Not Available [facility] [address], [place], [address], 03/02/2023 12:21:36 03/01/20 23 03/01/2023 COMPL ETE BLOOD COUNT WITH AUTO DIFF* neut% 68.3 % 50.0-7 0.0 Not Available [facility] [address], [place], [address], 03/02/2023 12:21:36 03/01/20 23 03/01/2023 COMPL ETE BLOOD COUNT WITH AUTO DIFF* lymph% 22.1 % 18.0-4 2.0 Not Available [facility] [address], [place], [address], 03/02/2023 12:21:36 03/01/20 23 03/01/2023 COMPL ETE BLOOD COUNT WITH AUTO DIFF* mono% 5.9 % 2.0-11 .0 Not Available [facility] [address], [place], [address], 03/02/2023 12:21:36 03/01/20 23 03/01/2023 COMPL ETE BLOOD COUNT WITH AUTO DIFF* eos% 2.6 % 1.0-3. 0 Not Available [facility] [address], [place], [address], 03/02/2023 12:21:36 03/01/20 23 03/01/2023 COMPL ETE BLOOD COUNT WITH AUTO DIFF* baso% 0.8 % 0.0-2. 0 Not Available [facility] [address], [place], [address], 03/02/2023 12:21:36 03/01/20 23 03/01/2023 COMPL ETE BLOOD COUNT WITH AUTO DIFF* Ig% 0.3 % 0.0-0. 6 Not Available [facility] [address], [place], [address], 03/02/2023 12:21:36 03/01/20 23 03/01/2023 COMPL ETE BLOOD COUNT WITH AUTO DIFF* neut# 4.53 10E3/ uL 2.30-8 .10 Not Available [facility] [address], [place], [address], 03/02/2023 12:21:36 03/01/20 23 03/01/2023 COMPL ETE BLOOD COUNT WITH AUTO DIFF* lymph# 1.46 10E3/ uL 0.80-4 .80 Not Available [facility] [address], [place], [address], 03/02/2023 12:21:36 03/01/20 23 03/01/2023 COMPL ETE BLOOD COUNT WITH AUTO DIFF* mono# 0.39 10E3/ uL 0.45-1 .30 low Not Available [facility] [address], [place], [address], 03/02/2023 12:21:36 03/01/20 23 03/01/2023 COMPL ETE BLOOD COUNT WITH AUTO DIFF* eos# 0.17 10E3/ uL 0.00-0 .40 [facility] Available [facility] [address], [place], [address], 03/02/2023 12:21:36 03/01/20 23 03/01/2023 COMPL ETE BLOOD COUNT WITH AUTO DIFF* baso# 0.05 10E3/ uL 0.00-0 .10 Not Available [facility] [address], [place], [address], 03/02/2023 12:21:36 03/01/20 23 03/01/2023 COMPL ETE BLOOD COUNT WITH AUTO DIFF* Ig# 0.02 10E3/ uL 0.00-0 .09 Not Available [facility] [address], [place], [address], 03/02/2023 12:21:36 03/01/20 23 03/01/2023 COMPR EHENS [...] Available [facility] [address], [place], [address], 03/02/2023 12:21:37 03/01/20 23 03/01/2023 COMPR EHENS DAVID METAB OLIC PANEL * BUN 16 mg/dL 8-23 Not Available [facility] [address], [place], [address], 03/02/2023 12:21:37 03/01/20 23 03/01/2023 COMPR EHENS DAVID METAB OLIC PANEL * calcium 8.7 mg/dL 8.8-10 .2 low Not Available [facility] [address], [place], [address], 03/02/2023 12:21:37 03/01/20 23 03/01/2023 COMPR EHENS DAVID METAB OLIC PANEL * creatinine 1.14 mg/dL 0.80-1 .30 Not Available [facility] [address], [place], [address], 03/02/2023 12:21:37 03/01/20 23 03/01/2023 COMPR EHENS DAVID METAB OLIC PANEL * sodium 143 mmol/ L 136-14 5 Not Available [facility] [address], [place], [address], 03/02/2023 12:21:37 03/01/20 23 03/01/2023 COMPR EHENS DAVID METAB OLIC PANEL * potassium 4.5 mmol/ L 3.5-5. 1 Not Available [facility] [address], [place], [address], 03/02/2023 12:21:37 03/01/20 23 03/01/2023 COMPR EHENS DAVID METAB OLIC PANEL * chloride 106 mEq/L 98-107 Not Available [facility] [address], [place], [address], 03/02/2023 12:21:37 03/01/20 23 03/01/2023 COMPR EHENS DAVID METAB OLIC PANEL * carbon dioxide 28 mmol/ L 23-30 Not Available [facility] [address], [place], [address], 03/02/2023 12:21:37 03/01/20 23 03/01/2023 COMPR EHENS DAVID METAB OLIC PANEL * total protein 5.9 g/dL 6.2-8. 1 low Not Available [facility] [address], [place], [address], 03/02/2023 12:21:37 03/01/20 23 03/01/2023 COMPR EHENS DAVID METAB OLIC PANEL * albumin 3.7 g/dL 3.2-4. 6 Not Available [facility] [address], [place], [address], 03/02/2023 12:21:37 03/01/20 23 03/01/2023 COMPR EHENS DAVID METAB OLIC PANEL * globulin 2.2 g/dL 2.3-3. 4 low Not Available [facility] [address], [place], [address], 03/02/2023 12:21:37 03/01/20 23 03/01/2023 COMPR EHENS DAVID METAB OLIC PANEL * A/G ratio 1.7 g/dL 0.8-2. 0 Not Available [facility] [address], [place], [address], 03/02/2023 12:21:37 03/01/20 23 03/01/2023 COMPR EHENS DAVID METAB OLIC PANEL * alkaline phosphatase 80 U/L 30-120 Not Available [facility] [address], [place], [address], 03/02/2023 12:21:37 03/01/20 23 03/01/2023 COMPR EHENS DAVID METAB OLIC PANEL * ALT (SGPT) 17 U/L 13-40 Not Available [facility] [address], [place], [address], 03/02/2023 12:21:37 03/01/20 23 03/01/2023 COMPR EHENS DAVID METAB OLIC PANEL * AST (SGOT) 15 U/L 19-48 low Not Available [facility] [address], [place], [address], 03/02/2023 12:21:37 03/01/20 23 03/01/2023 COMPR EHENS DAVID METAB OLIC PANEL * bilirubin, total 0.79 mg/dL 0.20-1 .10 Not Available [facility] [address], [place], [address], 03/02/2023 12:21:37 03/01/20 23 03/01/2023 COMPR EHENS [...] Available [facility] [address], [place], [address], 03/02/2023 12:21:37 03/01/2003/01/2023 MAGNE SIUM* magnesium 2.00 mg/dL 1.60-2 .40 Not Available [facility] [address], [place], [address], 03/02/2023 12:21:37 06/23/19 24 06/23/2023 COMPL ETE BLOOD COUNT WITH AUTO DIFF* WBC 7.19 10E3/ uL 4.50-1 1.50 Not Available [facility] [address], [place], [address], 06/24/2023 13:42:47 06/23/19 24 06/23/2023 COMPL ETE BLOOD COUNT WITH AUTO DIFF* RBC 4.55 10E6/ uL 4.60-6 .00 low Not Available [facility] [address], [place], [address], 06/24/2023 13:42:47 06/23/19 24 06/23/2023 COMPL ETE BLOOD COUNT WITH AUTO DIFF* HGB 13.8 g/dL 14.0-1 8.0 low Not Available [facility] [address], [place], [address], 06/24/2023 13:42:47 06/23/19 24 06/23/2023 COMPL ETE BLOOD COUNT WITH AUTO DIFF* HCT 40.5 % 40.0-5 4.0 Not Available [facility] [address], [place], [address], 06/24/2023 13:42:47 06/23/19 24 06/23/2023 COMPL ETE BLOOD COUNT WITH AUTO DIFF* MCV 89 fL 80-100 Not Available [facility] [address], [place], [address], 06/24/2023 13:42:47 06/23/19 24 06/23/2023 COMPL ETE BLOOD COUNT WITH AUTO DIFF* MCH 30 pg 26-32 Not Available [facility] [address], [place], [address], 06/24/2023 13:42:47 06/23/19 24 06/23/2023 COMPL ETE BLOOD COUNT WITH AUTO DIFF* MCHC 34.1 g/dL 32.0-3 6.0 Not Available [facility] [address], [place], [address], 06/24/2023 13:42:47 06/23/19 24 06/23/2023 COMPL ETE BLOOD COUNT WITH AUTO DIFF* RDW 13.2 % 11.5-1 4.5 Not Available [facility] [address], [place], [address], 06/24/2023 13:42:47 06/23/19 24 06/23/2023 COMPL ETE BLOOD COUNT WITH AUTO DIFF* plt 129 10E3/ uL 150-45 0 low Not Available [facility] [address], [place], [address], 06/24/2023 13:42:47 06/23/19 24 06/23/2023 COMPL ETE BLOOD COUNT WITH AUTO DIFF* neut% 71.7 % 50.0-7 0.0 high Not Available [facility] [address], [place], [address], 06/24/2023 13:42:47 06/23/19 24 06/23/2023 COMPL ETE BLOOD COUNT WITH AUTO DIFF* lymph% 19.1 % 18.0-4 2.0 Not Available [facility] [address], [place], [address], 06/24/2023 13:42:47 06/23/19 24 06/23/2023 COMPL ETE BLOOD COUNT WITH AUTO DIFF* mono% 5.7 % 2.0-11 .0 Not Available [facility] [address], [place], [address], 06/24/2023 13:42:47 06/23/19 24 06/23/2023 COMPL ETE BLOOD COUNT WITH AUTO DIFF* eos% 2.5 % 1.0-3. 0 Not Available [facility] [address], [place], [address], 06/24/2023 13:42:47 06/23/19 24 06/23/2023 COMPL ETE BLOOD COUNT WITH AUTO DIFF* baso% 0.6 % 0.0-2. 0 Not Available [facility] [address], [place], [address], 06/24/2023 13:42:47 06/23/19 24 06/23/2023 COMPL ETE BLOOD COUNT WITH AUTO DIFF* Ig% 0.4 % 0.0-0. 6 Not Available [facility] [address], [place], [address], 06/24/2023 13:42:47 06/23/19 24 06/23/2023 COMPL ETE BLOOD COUNT WITH AUTO DIFF* neut# 5.16 10E3/ uL 2.30-8 .10 Not Available [facility] [address], [place], [address], 06/24/2023 13:42:47 06/23/19 24 06/23/2023 COMPL ETE BLOOD COUNT WITH AUTO DIFF* lymph# 1.37 10E3/ uL 0.80-4 .80 Not Available [facility] [address], [place], [address], 06/24/2023 13:42:47 06/23/19 24 06/23/2023 COMPL ETE BLOOD COUNT WITH AUTO DIFF* mono# 0.41 10E3/ uL 0.45-1 .30 low Not Available [facility] [address], [place], [address], 06/24/2023 13:42:47 06/23/19 24 06/23/2023 COMPL ETE BLOOD COUNT WITH AUTO DIFF* eos# 0.18 10E3/ uL 0.00-0 .40 Not Available [facility] [address], [place], [address], 06/24/2023 13:42:47 06/23/19 24 06/23/2023 COMPL ETE BLOOD COUNT WITH AUTO DIFF* baso# 0.04 10E3/ uL 0.00-0 .10 Not Available [facility] [address], [place], [address], 06/24/2023 13:42:47 06/23/19 24 06/23/2023 COMPL ETE BLOOD COUNT WITH AUTO DIFF* Ig# 0.03 10E3/ uL 0.00-0 .09 Not Available [facility] [address], [place], [address], 06/24/2023 13:42:47 06/23/19 24 06/23/2023 COMPR EHENS [...] Available [facility] [address], [place], [address], 06/24/2023 13:42:48 06/23/19 24 06/23/2023 COMPR EHENS DAVID METAB OLIC PANEL * BUN 26 mg/dL 8-23 high Not Available [facility] [address], [place], [address], 06/24/2023 13:42:48 06/23/19 24 06/23/2023 COMPR EHENS DAVID METAB OLIC PANEL * calcium 8.5 mg/dL 8.8-10 .2 low Not Available [facility] [address], [place], [address], 06/24/2023 13:42:48 06/23/19 24 06/23/2023 COMPR EHENS DAVID METAB OLIC PANEL * creatinine 1.31 mg/dL 0.80-1 .30 high Not Available [facility] [address], [place], [address], 06/24/2023 13:42:48 06/23/19 24 06/23/2023 COMPR EHENS DAVID METAB OLIC PANEL * sodium 142 mmol/ L 136-14 5 Not Available [facility] [address], [place], [address], 06/24/2023 13:42:48 06/23/19 24 06/23/2023 COMPR EHENS DAVID METAB OLIC PANEL * potassium 4.3 mmol/ L 3.5-5. 1 Not Available [facility] [address], [place], [address], 06/24/2023 13:42:48 06/23/19 24 06/23/2023 COMPR EHENS DAVID METAB OLIC PANEL * chloride 107 mEq/L 98-107 Not Available [facility] [address], [place], [address], 06/24/2023 13:42:48 06/23/19 24 06/23/2023 COMPR EHENS DAVID METAB OLIC PANEL * carbon dioxide 25 mmol/ L 23-30 Not Available [facility] [address], [place], [address], 06/24/2023 13:42:48 06/23/19 24 06/23/2023 COMPR EHENS DAVID METAB OLIC PANEL * total protein 5.0 g/dL 6.2-8. 1 low Not Available [facility] [address], [place], [address], 06/24/2023 13:42:48 06/23/19 24 06/23/2023 COMPR EHENS DAVID METAB OLIC PANEL * albumin 3.1 g/dL 3.2-4. 6 low Not Available [facility] [address], [place], [address], 06/24/2023 13:42:48 06/23/19 24 06/23/2023 COMPR EHENS DAVID METAB OLIC PANEL * globulin 1.9 g/dL 2.3-3. 4 low Not Available [facility] [address], [place], [address], 06/24/2023 13:42:48 06/23/19 24 06/23/2023 COMPR EHENS DAVID METAB OLIC PANEL * A/G ratio 1.6 g/dL 0.8-2. 0 Not Available [facility] [address], [place], [address], 06/24/2023 13:42:48 06/23/19 24 06/23/2023 COMPR EHENS DAVID METAB OLIC PANEL * alkaline phosphatase 66 U/L 30-120 Not Available [facility] [address], [place], [address], 06/24/2023 13:42:48 06/23/19 24 06/23/2023 COMPR EHENS DAVID METAB OLIC PANEL * ALT (SGPT) 15 U/L 13-40 Not Available [facility] [address], [place], [address], 06/24/2023 13:42:48 06/23/19 24 06/23/2023 COMPR EHENS DAVID METAB OLIC PANEL * AST (SGOT) 13 U/L 19-48 low Not Available [facility] [address], [place], [address], 06/24/2023 13:42:48 06/23/19 24 06/23/2023 COMPR EHENS DAVID METAB OLIC PANEL * bilirubin, total 0.69 mg/dL 0.20-1 .10 Not Available [facility] [address], [place], [address], 06/24/2023 13:42:48 06/23/19 24 06/23/2023 COMPR EHENS [...] [facility] [address], [place], [address], 06/24/2023 13:42:48 06/23/19 24 06/23/2023 FOLAT E* folate 13.8 NG/mL 8.6-58 .9 Not Available [facility] [address], [place], [address], 06/24/2023 13:42:48 06/23/19 24 06/23/2023 IRON* iron 89 ug/dL 65-175 Intox icate d Child : 280 - 2250 ug/dL Fatal ly Poiso benny Child : >1800 ug/dL Intox icate d Child : 280 - 2250 ug/dL Fatal ly Poiso benny Child : >1800 ug/dL Not Available [facility] [address], [place], [address], 06/24/2023 13:42:49 06/23/19 24 06/23/2023 MAGNE SIUM* magnesium 1.80 mg/dL 1.60-2 .40 Not Available [facility] [address], [place], [address], 06/24/2023 13:42:49 06/23/19 24 06/23/2023 VITAM IN B12* vitamin B12 257 pg/mL 250-11 00 Not Available [facility] [address], [place], [address], 06/24/2023 13:42:50 06/23/19 24 06/23/2023 COMPL ETE BLOOD COUNT WITH AUTO DIFF* WBC 7.19 10E3/ uL 4.50-1 1.50 Not Available [facility] [address], [place], [address], 06/24/2023 15:10:26 06/23/19 24 06/23/2023 COMPL ETE BLOOD COUNT WITH AUTO DIFF* RBC 4.55 10E6/ uL 4.60-6 .00 low Not Available [facility] [address], [place], [address], 06/24/2023 15:10:26 06/23/19 24 06/23/2023 COMPL ETE BLOOD COUNT WITH AUTO DIFF* HGB 13.8 g/dL 14.0-1 8.0 low Not Available [facility] [address], [place], [address], 06/24/2023 15:10:26 06/23/19 24 06/23/2023 COMPL ETE BLOOD COUNT WITH AUTO DIFF* HCT 40.5 % 40.0-5 4.0 Not Available [facility] [address], [place], [address], 06/24/2023 15:10:26 06/23/19 24 06/23/2023 COMPL ETE BLOOD COUNT WITH AUTO DIFF* MCV 89 fL 80-100 Not Available [facility] [address], [place], [address], 06/24/2023 15:10:26 06/23/19 24 06/23/2023 COMPL ETE BLOOD COUNT WITH AUTO DIFF* MCH 30 pg 26-32 Not Available [facility] [address], [place], [address], 06/24/2023 15:10:26 06/23/19 24 06/23/2023 COMPL ETE BLOOD COUNT WITH AUTO DIFF* MCHC 34.1 g/dL 32.0-3 6.0 Not Available [facility] [address], [place], [address], 06/24/2023 15:10:26 06/23/19 24 06/23/2023 COMPL ETE BLOOD COUNT WITH AUTO DIFF* RDW 13.2 % 11.5-1 4.5 Not Available [facility] [address], [place], [address], 06/24/2023 15:10:26 06/23/19 24 06/23/2023 COMPL ETE BLOOD COUNT WITH AUTO DIFF* plt 129 10E3/ uL 150-45 0 low Not Available [facility] [address], [place], [address], 06/24/2023 15:10:26 06/23/19 24 06/23/2023 COMPL ETE BLOOD COUNT WITH AUTO DIFF* neut% 71.7 % 50.0-7 0.0 high Not Available [facility] [address], [place], [address], 06/24/2023 15:10:26 06/23/19 24 06/23/2023 COMPL ETE BLOOD COUNT WITH AUTO DIFF* lymph% 19.1 % 18.0-4 2.0 Not Available [facility] [address], [place], [address], 06/24/2023 15:10:26 06/23/19 24 06/23/2023 COMPL ETE BLOOD COUNT WITH AUTO DIFF* mono% 5.7 % 2.0-11 .0 Not Available [facility] [address], [place], [address], 06/24/2023 15:10:26 06/23/19 24 06/23/2023 COMPL ETE BLOOD COUNT WITH AUTO DIFF* eos% 2.5 % 1.0-3. 0 Not Available [facility] [address], [place], [address], 06/24/2023 15:10:26 06/23/19 24 06/23/2023 COMPL ETE BLOOD COUNT WITH AUTO DIFF* baso% 0.6 % 0.0-2. 0 Not Available [facility] [address], [place], [address], 06/24/2023 15:10:26 06/23/19 24 06/23/2023 COMPL ETE BLOOD COUNT WITH AUTO DIFF* Ig% 0.4 % 0.0-0. 6 Not Available [facility] [address], [place], [address], 06/24/2023 15:10:26 06/23/19 24 06/23/2023 COMPL ETE BLOOD COUNT WITH AUTO DIFF* neut# 5.16 10E3/ uL 2.30-8 .10 Not Available [facility] [address], [place], [address], 06/24/2023 15:10:26 06/23/19 24 06/23/2023 COMPL ETE BLOOD COUNT WITH AUTO DIFF* lymph# 1.37 10E3/ uL 0.80-4 .80 Not Available [facility] [address], [place], [address], 06/24/2023 15:10:26 06/23/19 24 06/23/2023 COMPL ETE BLOOD COUNT WITH AUTO DIFF* mono# 0.41 10E3/ uL 0.45-1 .30 low Not Available [facility] [address], [place], [address], 06/24/2023 15:10:26 06/23/19 24 06/23/2023 COMPL ETE BLOOD COUNT WITH AUTO DIFF* eos# 0.18 10E3/ uL 0.00-0 .40 Not Available [facility] [address], [place], [address], 06/24/2023 15:10:26 06/23/19 24 06/23/2023 COMPL ETE BLOOD COUNT WITH AUTO DIFF* baso# 0.04 10E3/ uL 0.00-0 .10 Not Available [facility] [address], [place], [address], 06/24/2023 15:10:26 06/23/19 24 06/23/2023 COMPL ETE BLOOD COUNT WITH AUTO DIFF* Ig# 0.03 10E3/ uL 0.00-0 .09 Not Available [facility] [address], [place], [address], 06/24/2023 15:10:26 06/23/19 24 06/23/2023 FOLAT E* folate 13.8 NG/mL 8.6-58 .9 Not Available [facility] [address], [place], [address], 06/24/2023 15:10:27 10/06/19 24 10/06/2023 COMPL ETE BLOOD COUNT WITH AUTO DIFF* WBC 6.30 10E3/ uL 4.50-1 1.50 Not Available [facility] [address], [place], [address], 10/07/2023 17:44:26 10/06/19 24 10/06/2023 COMPL ETE BLOOD COUNT WITH AUTO DIFF* RBC 4.44 10E6/ uL 4.60-6 .00 low Not Available [facility] [address], [place], [address], 10/07/2023 17:44:26 10/06/19 24 10/06/2023 COMPL ETE BLOOD COUNT WITH AUTO DIFF* HGB 13.8 g/dL 14.0-1 8.0 low Not Available [facility] [address], [place], [address], 10/07/2023 17:44:26 10/06/19 24 10/06/2023 COMPL ETE BLOOD COUNT WITH AUTO DIFF* HCT 42.8 % 40.0-5 4.0 Not Available [facility] [address], [place], [address], 10/07/2023 17:44:26 10/06/19 24 10/06/2023 COMPL ETE BLOOD COUNT WITH AUTO DIFF* MCV 96 fL 80-100 Not Available [facility] [address], [place], [address], 10/07/2023 17:44:26 10/06/19 24 10/06/2023 COMPL ETE BLOOD COUNT WITH AUTO DIFF* MCH 31 pg 26-32 Not Available [facility] [address], [place], [address], 10/07/2023 17:44:26 10/06/19 24 10/06/2023 COMPL ETE BLOOD COUNT WITH AUTO DIFF* MCHC 32.2 g/dL 32.0-3 6.0 Not Available [facility] [address], [place], [address], 10/07/2023 17:44:26 10/06/19 24 10/06/2023 COMPL ETE BLOOD COUNT WITH AUTO DIFF* RDW 14.6 % 11.5-1 4.5 high Not Available [facility] [address], [place], [address], 10/07/2023 17:44:26 10/06/19 24 10/06/2023 COMPL ETE BLOOD COUNT WITH AUTO DIFF* plt 111 10E3/ uL 150-45 0 low Not Available [facility] [address], [place], [address], 10/07/2023 17:44:26 10/06/19 24 10/06/2023 COMPL ETE BLOOD COUNT WITH AUTO DIFF* neut% 59.4 % 50.0-7 0.0 Not Available [facility] [address], [place], [address], 10/07/2023 17:44:26 10/06/19 24 10/06/2023 COMPL ETE BLOOD COUNT WITH AUTO DIFF* lymph% 27.3 % 18.0-4 2.0 Not Available [facility] [address], [place], [address], 10/07/2023 17:44:26 10/06/19 24 10/06/2023 COMPL ETE BLOOD COUNT WITH AUTO DIFF* mono% 8.1 % 2.0-11 .0 Not Available [employer] [address], [place], [address], 10/07/2023 17:44:26 10/06/19 24 10/06/2023 COMPL ETE BLOOD COUNT WITH AUTO DIFF* eos% 4.4 % 1.0-3. 0 high Not Available [employer] [address], [place], [address], 10/07/2023 17:44:26 10/06/19 24 10/06/2023 COMPL ETE BLOOD COUNT WITH AUTO DIFF* baso% 0.6 % 0.0-2. 0 Not Available [employer] [address], [place], [address], 10/07/2023 17:44:26 10/06/19 24 10/06/2023 COMPL ETE BLOOD COUNT WITH AUTO DIFF* Ig% 0.2 % 0.0-0. 6 Not Available [employer] [address], [place], [address], 10/07/2023 17:44:26 10/06/19 24 10/06/2023 COMPL ETE BLOOD COUNT WITH AUTO DIFF* neut# 3.74 10E3/ uL 2.30-8 .10 Not Available [employer] [address], [place], [address], 10/07/2023 17:44:26 10/06/19 24 10/06/2023 COMPL ETE BLOOD COUNT WITH AUTO DIFF* lymph# 1.72 10E3/ uL 0.80-4 .80 Not Available [employer] [address], [place], [address], 10/07/2023 17:44:26 10/06/19 24 10/06/2023 COMPL ETE BLOOD COUNT WITH AUTO DIFF* mono# 0.51 10E3/ uL 0.45-1 .30 Not Available [employer] [address], [place], [address], 10/07/2023 17:44:26 10/06/19 24 10/06/2023 COMPL ETE BLOOD COUNT WITH AUTO DIFF* eos# 0.28 10E3/ uL 0.00-0 .40 Not Available [employer] [address], [place], [address], 10/07/2023 17:44:26 10/06/19 24 10/06/2023 COMPL ETE BLOOD COUNT WITH AUTO DIFF* baso# 0.04 10E3/ uL 0.00-0 .10 Not Available [facility] [address], [place], [address], 10/07/2023 17:44:26 10/06/19 24 10/06/2023 COMPL ETE BLOOD COUNT WITH AUTO DIFF* Ig# 0.01 10E3/ uL 0.00-0 .09 Not Available [facility] [address], [place], [address], 10/07/2023 17:44:26 10/06/19 24 10/06/2023 COMPL ETE BLOOD COUNT WITH AUTO DIFF* reflex Smear Review Not Available [facility] [address], [place], [address], 10/07/2023 17:44:26 10/06/19 24 10/06/2023 COMPR EHENS [...] Available [employer] [address], [place], [address], 10/07/2023 17:44:26 10/06/19 24 10/06/2023 COMPR EHENS DAVID METAB OLIC PANEL * BUN 19 mg/dL 8-23 Not Available [facility] [address], [place], [address], 10/07/2023 17:44:26 10/06/19 24 10/06/2023 COMPR EHENS DAVID METAB OLIC PANEL * calcium 8.2 mg/dL 8.8-10 .2 low Not Available [facility] [address], [place], [address], 10/07/2023 17:44:26 10/06/19 24 10/06/2023 COMPR EHENS DAVID METAB OLIC PANEL * creatinine 1.05 mg/dL 0.80-1 .30 Not Available [facility] [address], [place], [address], 10/07/2023 17:44:26 10/06/19 24 10/06/2023 COMPR EHENS DAVID METAB OLIC PANEL * sodium 142 mmol/ L 136-14 5 Not Available [facility] [address], [place], [address], 10/07/2023 17:44:26 10/06/19 24 10/06/2023 COMPR EHENS DAVID METAB OLIC PANEL * potassium 4.2 mmol/ L 3.5-5. 1 Not Available [facility] [address], [place], [address], 10/07/2023 17:44:26 10/06/19 24 10/06/2023 COMPR EHENS DAVID METAB OLIC PANEL * chloride 108 mEq/L 98-107 high Not Available [facility] [address], [place], [address], 10/07/2023 17:44:26 10/06/19 24 10/06/2023 COMPR EHENS DAVID METAB OLIC PANEL * carbon dioxide 26 mmol/ L 23-30 Not Available [facility] [address], [place], [address], 10/07/2023 17:44:26 10/06/19 24 10/06/2023 COMPR EHENS DAVID METAB OLIC PANEL * total protein 4.9 g/dL 6.2-8. 1 low Not Available [facility] [address], [place], [address], 10/07/2023 17:44:26 10/06/19 24 10/06/2023 COMPR EHENS DAVID METAB OLIC PANEL * albumin 2.9 g/dL 3.2-4. 6 low Not Available [facility] [address], [place], [address], 10/07/2023 17:44:26 10/06/19 24 10/06/2023 COMPR EHENS DAVID METAB OLIC PANEL * globulin 2.0 g/dL 2.3-3. 4 low Not Available [facility] [address], [place], [address], 10/07/2023 17:44:26 10/06/19 24 10/06/2023 COMPR EHENS DAVID METAB OLIC PANEL * A/G ratio 1.5 g/dL 0.8-2. 0 Not Available [facility] [address], [place], [address], 10/07/2023 17:44:26 10/06/19 24 10/06/2023 COMPR EHENS DAVID METAB OLIC PANEL * alkaline phosphatase 73 U/L 30-120 Not Available [facility] [address], [place], [address], 10/07/2023 17:44:26 10/06/19 24 10/06/2023 COMPR EHENS DAVID METAB OLIC PANEL * ALT (SGPT) 13 U/L 13-40 Not Available [facility] [address], [place], [address], 10/07/2023 17:44:26 10/06/19 24 10/06/2023 COMPR EHENS DAVID METAB OLIC PANEL * AST (SGOT) 12 U/L 19-48 low Not Available [facility] [address], [place], [address], 10/07/2023 17:44:26 10/06/19 24 10/06/2023 COMPR EHENS DAVID METAB OLIC PANEL * bilirubin, total 0.97 mg/dL 0.20-1 .10 Not Available [facility] [address], [place], [address], 10/07/2023 17:44:26 10/06/19 24 10/06/2023 COMPR EHENS [...] Not Available [facility] [address], [place], [address], 10/07/2023 17:44:26 06/15/19 24 06/15/2023 XR, hip + pelvi s, unila teral , 4 or more view No observ ation record ed. [email or web address] [facility] [address] [facility], [place], [address], 07/13/2023 07:14:48 Result Notes None recorded. Problems Name Problem SNOMED Code Status Onset Date Resolution Date Notes Provider Name and Address Organization Details Recorded Time Essential hypertensio n 18998692 Active 2022 YANIV Arias, PMHNP-BC [address] [place], [address], [place] [facility] 18:14:22 Neuropathy 900587731 Active 2022 YANIV Arias, PMHNP-BC [address], [place], [address], [place] [facility] 4 18:14:22 Obstructive sleep apnea of adult 5347115698578 Active 2023 FARHEEN AirasP-BC, PMHNP-BC [address], [place], [address], [place] [facility] 4 07:25:43 Osteoarthri tis of multiple joints 391858601 Active 2023 Cristy Dawkins PRICING COORDINATOR-BC, PMHNP-BC [address], [place], [address], [facility] - [facility] 4 07:06:33 Low back pain 371965107 Active 2023 FARHEEN AriasP-BC, PMHNP-BC [address], [place], [address], [facility] - [facility] 4 07:06:33 Problem Notes None recorded. Procedures Surgical History None recorded. Imaging Results Imaging Date Name Status LastModified by Organiz ation Details LastModified Time 06/15/2023 XR, hip + pelvis, unilateral , 4 or more view completed [email or web address] [facility] [address], [place], [address], 07/13/2023 07:14:48 Procedure Notes None recorded. Medical Equipment None Reported. Allergies Allergen ID Allergen Name Allergen Category Reaction Reaction Severity Criticality Documentation Date Start Date Code Code System Note Provider Name and Address Organization Details Recorded Time 6753 amlodipin e medicatio n Not available Not available Not available 02/22/2023 60621 RxNorm Shamyra Tank null, [facility] 3 16:46:55 6754 hydrochlo rothiazid e medicatio n Not available Not available Not available 02/22/2023 5487 RxNorm Shamyra Tank null, [place] - [facility] 3 16:47:12 Medications Name Sig [...] [degF] 122 mm[Hg] 68 mm[Hg] Sandoval [facility] 3 15:23:32 Date Recorded Body height Body mass index (BMI) Body weight Provider Name and Address Organization Details Last Updated DateTime 02/21/2023 180.34 cm 26.4 kg/m2 00754.96 g Cristy Dawkins, PRICING COORDINATOR-BC, PMHNP-BC [address] [place], [address], [facility] 02/22/2023 16:50:28 Date Recorded Body height Heart rate Respiratory rate Oxygen saturation Oxygen saturation in Arterial blood by Pulse oximetry Body temperature Systolic blood pressure Diastolic blood pressure Provider Name and Address Organization Details Last Updated DateTime 3 180.34 cm 55 /min 18 /min 97 % 97 % 97.2 [degF] 140 mm[Hg] 78 mm[Hg] [facility] 3 12:12:20 Date Recorded Body height Heart rate Respiratory rate Oxygen saturation Oxygen saturation in Arterial blood by Pulse oximetry Body temperature Systolic blood pressure Diastolic blood pressure Provider Name and Address Organization Details Last Updated DateTime 3 180.34 cm 57 /min 16 /min 97 % 97 % 97.6 [degF] 148 mm[Hg] 80 mm[Hg] [facility] 3 11:09:11 Date Recorded Body height Heart rate Respiratory rate Oxygen saturation Oxygen saturation in Arterial blood by Pulse oximetry Body temperature Systolic blood pressure Diastolic blood pressure Provider Name and Address Organization Details Last Updated DateTime 4 180.34 cm 55 /min 18 /min 97 % 97 % 97.4 [degF] 130 mm[Hg] 86 mm[Hg] [facility] 4 12:59:18 Date Recorded Body height Heart rate Respiratory rate Oxygen saturation Oxygen saturation in Arterial blood by Pulse oximetry Body temperature Systolic blood pressure Diastolic blood pressure Provider Name and Address Organization Details Last Updated DateTime 4 180.34 cm 58 /min 18 /min 97 % 97 % 98.1 [degF] 152 mm[Hg] 82 mm[Hg] [facility] 4 14:55:21 Date Recorded Body height Heart rate Respiratory rate Oxygen saturation Oxygen saturation in Arterial blood by Pulse oximetry Body temperature Systolic blood pressure Diastolic blood pressure Provider Name and Address Organization Details Last Updated DateTime 4 180.34 cm 60 /min 16 /min 97 % 97 % 97.7 [degF] 144 mm[Hg] 82 mm[Hg] [facility] 4 09:05:20 Social History Question Answer Notes LastModified by Organizat ion Details LastModified Time Tobacco Smoking Status Former Smoker [facility] 02/22/2023 16:48:48 Do You Have An Advance Directive? Yes [email or web address] Information not available 02/22/2023 What Is Your Level Of Alcohol Consumption? None [email or web address] Information not available 02/22/2023 Are You Blind Or Do You Have Difficulty Seeing? No Information not available 02/22/2023 Is Blood Transfusion Acceptable In An Emergency? Yes Information not available 02/22/2023 What Is Your Level Of Caffeine Consumption? Occasional [email or web address] Information not available 02/22/2023 What Type Of Turnstile Attendant Do You Use? None [email or web address] Information not available 02/22/2023 What Is Your Code Status? DNR Information not available 02/03/2023 Are You Currently Employed? No [email or web address] Information not available 02/22/2023 Are You Deaf Or Do You Have Serious Difficulty Hearing? No Information not available 02/22/2023 What Type Of Diet Are You Following? REGULAR [email or web address] Information not available 02/22/2023 What Is The Highest Grade Or Level Of School You Have Completed Or The Highest Degree You Have Received? [id number] [email or web address] Information not available 02/22/2023 Have There Been Any Changes To Your Family Or Social Situation? No Information not available 02/22/2023 When Did You Quit Smoking? 1-5yearssincel adia [email or web address] Information not available 02/22/2023 Are There Any Guns Present In Your Home? No Information not available 02/22/2023 Do You Have A Medical Power Of Diesel Motor Mechanic? Yes Miguel Galaviz (son-in-la w) Information not available 02/03/2023 What Was The Date Of Your Most Recent Tobacco Screening? 02/21/2023 Information not available 02/22/2023 How Many Children Do You Have? 0 [email or web address] Information not available 02/22/2023 What Is Your Current Pack Years? 10packyearnav [email or web address] Information not available 02/22/2023 Do You Have Any Pets? No [email or web address] Information not available 02/22/2023 What Is Your Relationship Status? Information not available 02/22/2023 Do You Use Your Seat Belt Or Car Seat Routinely? Yes [email or web address] Information not available 02/22/2023 Are You Sexually Active? No [email or web address] Information not available 02/22/2023 Do You Have Smoke And Carbon Monoxide Detectors In Your Home? Yes Information not available 02/22/2023 At What Age Did You Start Smoking Tobacco? 20 [email or web address] Information not available 02/22/2023 Are You Passively Exposed To Smoke? No [email or web address] Information not available 02/22/2023 Do You Participate In Social Media? No [email or web address] Information not available 02/22/2023 Do You Feel Stressed (tense, Restless, Nervous, Or Anxious, Or Unable To Sleep At Night)? [id number] Information not available 02/22/2023 Do You Use Any Illicit Or Recreational Drugs? No Information not available 02/22/2023 Do You Use Sunscreen Routinely? No [email or web address] Information not available 02/22/2023 How Many Years Have You Smoked Tobacco? 2 Information not available 02/22/2023 Are You Currently In School? No [email or web address] Information not available 02/22/2023 Do You Have Any Dietary Restrictions? No [email or web address] Information not available 02/22/2023 Do You Or Have You Ever Used Any Other Forms Of Tobacco Or Nicotine? No [email or web address] Information not available 02/22/2023 Sex: Male Functional Status Question Answer Note LastModified by Organizat ion Details LastModified Time Do you have difficulty walking or climbing stairs? Yes [email or web address] Information not available 02/22/2023 Do you have transportation difficulties? No [email or web address] Information not available 02/22/2023 Are you able to walk? YESASSIST [email or web address] Information not available 02/22/2023 Do you have difficulty doing errands alone? Yes [email or web address] Information not available 02/22/2023 Are you able to care for yourself? Yes [email or web address] Information not available 02/22/2023 Do you have difficulty dressing or bathing? No [email or web address] Information not available 02/22/2023 What is your exercise level? None [email or web address] Information not available 02/22/2023 Mental Status Question Answer Note LastModified by Organization D etails LastModified Time Do you have difficulty concentrating, remembering or making decisions? No [email or web address] Information no t available 02/22/2023 Family History Relationship Description Onset Age of this Age Resolved Age Notes LastModified by Organization Details LastModified Time Father Essential hypertension lauri Not available 16:55:25 Medical History Condition Response Obstructive Sleep Apnea Y Genitourinary Diseases / Disorders () Y Neuropathy Y Hematological Diseases / Disorders Y Gastrointestinal Diseases / Disorders Y Neurological Diseases / Disorders Y Hypertension Y Immunizations Vaccine Type Date Status Note Provider Nam e and Address Organization Details Recorded Time Influenza, adjuvanted, quadrivalent, PF 03/10/2023 completed Anamaria Copeland [facility], [place] - [facility] 03/10/2023 16:06:40 Past Encounters Encounter ID Performer Location Encounter Start Date Encounter Closed Date Diagnosis/Indication Diagnosis SNOMED-CT Code Diagnosis ICD10 Code Diagnosis Note [id number] Cristy Dawkins PRICING COORDINATOR-BC, PMHNP-BC [facility] [address] [place] [address] 02/21/2023 08:12:18 02/22/2023 19:33:44 Thoracic back pain 213341812 M54.6 Advance care planning 71 7226204 Z71.89 Essential hypertension 63384306 I10 taking medication . labs to eval levels. Neuropathy 226112930 G62 .9 safety when ambulating .numbness. Denies pain. 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 Low back pain 068142236 M54.50 Pain of le ft hip joint 9816363094 40512 M25.552 Essential hypertension 26568158 I10 taking medication . labs to eval levels. Anemia 622040718 D64.9 labs to eval levels. [id number] Cristy Dawkins [facility], [facility] [address] [place] [address] 07/12/2023 13:37:52 07/14/2023 14:17:46 Low back pain 984982940 M54.50 Essential hypertension 30737312 I10 Osteoarthr itis of multiple joints 740230856 M15.9 Dressing-g rooming self-care deficit 973674083 Z74.1 Obstructiv e sleep apnea of adult 3685328310 103 G47.33 [id number] Cristy Dawkins [facility], [facility] [address] [place] [address] 08/03/2023 08:40:09 08/04/2023 08:52:46 Low back pain 733460745 M54.50 Osteoarthr itis of multiple joints 993325096 M15.9 Neuropathy 424899691 G62 .9 Health Concerns Section Related Observation LastModified by Organization Detai ls LastModified Time None Recorded Concern Status LastModified by Organization Details LastModified Time None Recorded Advance Directives Directive Y: Payers Encounter Date Sequence Insurance Name Policy Number Policy Greco Covered Member ID Greco Member ID Guarantor Name 02/21/2023 1 [employer] - GOLD PLUS (MEDICARE REPLACEMENT HMO) Crow Smith III [id number] Crow Smith 03/21/2023 1 [employer] - G[employer] PLUS (MEDICARE REPLACEMENT HMO) Crow Smith III [id number] Crow Smith 06/14/2023 1 [employer] - GOLD PLUS (MEDICARE REPLACEMENT HMO) Crow Smith III [id number] Crow Smith 07/12/2023 1 [employer] - GOLD PLUS (MEDICARE REPLACEMENT HMO) Crow Smith III [id number] Crow Smith 08/03/2023 1 [employer] - GOLD PLUS (MEDICARE REPLACEMENT HMO) Crow Smith III [id number] Crow Smith Notes Date Note Type Note Provider Name and Address Organization Details Recorded Time 02/21/2023 text/html Back PainReporte d bypatient.Location:[facility] Severity:moderate (5-7) Associated Symptoms:no fever; no weak [...] having significant numbness and weakness in BLE. [facility] [address], [place], [address] [place] [address] 02/22/2023 17:35:34 03/21/2023 text/html Back PainReporte d bypatient.Location:[facility] Severity:moderate (5-7) Alleviating Factors:NSAIDS Associated Symptoms:no fever; no weak limbs; no numbness of the legs/feet; no tingling; no incontinence; no shortness of breath; no unintentional weight loss; no chills; no night sweats; no gait instability; no bowel/bladder symptoms; no recent increase in stress Neuropathy - having significant numbness and weakness in BLE. Denies burning.ABN labs noted on routine labs. YANIV Arias, [facility]- [address], [place], [address] [place] [address] Primary Care 03/21/2023 12:42:48 06/14/2023 text/html Back [...] dizziness, CP, SOB, or palpitations. Cristy Dawkins [facility], [facility] [address] [place], [address], [facility] 06/14/2023 18:22:36 07/12/2023 text/html Joint & Soft [...] dizziness, CP, SOB, or palpitations. Cristy Dawkins PRICING COORDINATOR-, [facility] [address] [place], [address], [facility] 07/13/2023 07:30:33 08/03/2023 text/html Joint [...] difficulties ambulating. Increasing fall risk. Cristy Dawkins, PRICING COORDINATOR-BC, PMHNP-BC [address] [place], [address], [facility] - [facility] 08/04/2023 07:07:27
--- OUTSIDE RECORDS SUMMARY | 2024-08-08 00:09 | XMS_ITS | Continuity of Care Document ---
Author Organization [facility] Address [address] [place] [address] Phone Care Team Providers Care Director Metabolism Name Role Phone Mery Galindo Unavailable Unavailable Procedures Procedure Date Eye Exam Established Pt Visual Field Examination(s) Office/outpatient Visit, Est Office/outpatient Visit, Est Corneal Pachymetry Fundus Photography W/ Report Optic Nerve Topography Optic Nerve Topography Visual Field Examination(s) Eye Exam, New Patient Refraction Advance Directives Directive Yes / No Effective Date File Name No Information Encounters Encounter Description Practice Location Reason(s) For Visit Diagnoses Date Provider Providers Copied on Encounter [facility], [address], [place], [place], [id number], tel:[phone] [facility] No Information 0-201 0 Josie Ordonez. [address] , [address], [place], [place], [facility], [place]. tel:[phone] [facility], [address], [place], [place], [address], [place] tel:[phone] [facility] No Information 9-201 0 Leo Carrillo. [address], [place], [place], [facility], [place]. tel:[phone] Referring Provider: Gerardo sanchez, [address], [place], [facility]. tel:[phone] Office/outpat ient Visit, [facility], [address] [place] [address] [address], [place], [place], [address], tel:[phone] [facility] No Information Luciano-0 6-201 0 Krishnasamy Gerardo. [address] [facility] [address], [place], [facility], [place]. tel:[phone] Office/outpat ient Visit, [facility], [address] [place] [address] [address], [place], [place], [address], tel:[phone] [facility] No Information Francesco-0 2-200 9 Krishnasamy Gerardo. [address] [place], [place] [address]ate [address], [facility], [place]. tel:[phone] Referring Provider: Gerardo sanchez, [facility] [address], [facility]. tel:[phone] [facility], [address] [place], [place] [address], [place], [place], [address], tel:[phone] [facility] No Information Nov-1 6-200 9 Krishnasamy Gerardo. [facility] [address], [facility], [place]. tel:[phone] Referring Provider: Gerardo sanchez, [address] [facility] [address], [place], [facility]. tel:[phone] [facility], [address] [place] [address] [address], [place], [place], [address], tel:[phone] [facility] No Information Apr-0 8-200 9 Krishnasamy Gerardo. [facility] [address], [place], [address], [place]. tel:[phone] Referring Provider: Gerardo sanchez, [address], [place], [address]. tel:[phone] [facility], [address], [place], [place], [address], [place] tel:[phone] [facility] No Information 7200 [address] Goodrich OD Tonny. [address], [place], [address], [place]. tel:[phone] Family History Family Member Type Diagnosis Age At Onset No Information Payers Payer name Insurance type Covered libertarian ID Zahida rainey(s) [employer] [id number] Social History Type Description Quantity Date Captured Comments Sex Male Smoking Status No Information Chief Complaint And Reason For Visit No Information Reason For Referral Reason For Referral No Information History Of Present Illness Encounter Date Complaint History Of Prese nt Illness No Information Functional Status Date Functional Assessmen t No Information Instructions Date Instruction Additional Infor mation No Information Assessments Type Assessment Date No Information Patient Care Teams Name Effective Dates (start - stop) Status Members No Information
--- OUTSIDE RECORDS SUMMARY | 2024-08-08 00:09 | XMS_ITS | Referral Summary ---
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 This disclosure is being madepursuant to the Care Everywhere program and may not contain all information available regarding this patient. Last updated 18.[facility] Encounters Date Type Department Care Team Description 07/04/2024 5:49 AM BANKRUPTCY JUDGE - 07/10/2024 7:16 PM [facility] Hospital Encounter [facility] 8[address] ACUTE [address] [place] [address] Miguel Bhagat MD Mason, MD Rolanda Zapata, MD Lori Borjas, Jarret Durbin MD Trauma Discharge Disposition: Detention Facility 07/04/2024 Travel from Last 3 Months Allergies Active Allergy Reactions Criticality Noted Date Comments Amlodipine Base Itching 07/04/2024 Hydrochlorothiazide Itching 07/04/2024 Valsartan Itching 07/04/2024 Medications * Be aware that medications may not be up to date on this document. Alwaysverify current medications with the patient. Medication Sig Dispensed Refills Start Date End Date Status acetaminophen (Tylenol) 500 MG tablet Take 2 (two) tablets by mouth every 8 hours Maximum allowable Acetaminophen amount = 4 Grams (4000 mg) / 24 hours. 07/05/2024 Active gabapentin (Neurontin) 100 MG capsule Take 1 (one) capsule by mouth 2 times daily 07/05/2024 Active polyethylene glycol 3350 (Miralax) 17 g packet Take 17 (seventeen) g by mouth once daily 07/06/2024 Active finasteride (Proscar) 5 MG tablet Take 1 (one) tablet by mouth once daily 07/06/2024 Active tamsulosin (Flomax) 0.4 MG capsule Take 1 (one) capsule by mouth at bedtime At the same time every day after a meal. 07/05/2024 Active acetaminophen (Tylenol) 500 MG tablet Take 2 (two) tablets by mouth every 6 hours as needed Maximum allowable Acetaminophen amount = 4 Grams (4000 mg) / 24 hours. 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 Never 07/05/2024 Q2: How many drinks containi ng alcohol do you have on a typical day when you are drinking? Patient does not drink Q3: How often do you have si x or more drinks on one occasion? Never 07/05/2024 Overall Financial Resource Strain (CARDIA) Answe r Date Recorded How hard is it for you to pa y for the very basics like food, housing, medical care, and heating? Not very hard 07/05/2024 [facility] [place] [facility] Occupat ional [facility] - Occupational Stress Questionnaire Answer Date Recorded Do you feel stress - tense, restless, nervous, or anxious, or unable to sleep at night because your mind is troubled all the time - these days? Only a little 07/05/2024 Hunger Vital Sign Answer Date Recorded Within the past 12 months, y ou worried that your food would run out before you got the money to buy more. Never true 07/05/19 25 Within the past 12 months, t he food you bought just didn't last and you didn't have money to get more. Never true 07/05/2024 PRAPARE - Transportation Answer Date Re corded In the past 12 months, has l ack of transportation kept you from medical appointments or from getting medications? Yes 06/08 In the past 12 months, has l ack of transportation kept you from meetings, work, or from getting things needed for daily living? Yes 07/05/2024 Housing Stability Vital Sign Answer Jaleel e Recorded In the last 12 months, was t here a time when you were not able to pay the mortgage or rent on time? No 07/05/2024 Number of Times Moved in the Last Year Not on fi le 07/05/2024 At any time in the past 12 m [facility], were you homeless or living in a halfway (including now)? No 07/05/2024 Sex and Gender Information Value Date Recorded Sex Assigned at Not on file Gender Identity Not on file Sexual Orientation Not on file Last Filed Vital Signs Vital Sign Reading Time Taken Comments Blood Pressure 129/91 07/10/2024 4:09 PM BANKRUPTCY JUDGE Pulse 81 07/10/2024 4:09 PM BANKRUPTCY JUDGE Temperature 36.8 C (98.2 F) 07/10/2024 4:09 PM BANKRUPTCY JUDGE Respiratory Rate 18 07/10/2024 4:09 PM BANKRUPTCY JUDGE Oxygen Saturation 95% 07/10/2024 4:09 PM BANKRUPTCY JUDGE Inhaled Oxygen Concentration - - Weight 72.5 kg (159 lb 13.3 oz) 07/10/2024 4:00 AM BANKRUPTCY JUDGE Height 177.8 cm (5' 10 ) 07/05/2024 8:22 PM BANKRUPTCY JUDGE Body Mass Index 22.93 07/05/2024 8:22 PM BANKRUPTCY JUDGE Functional Status Functional Status Response Date of Assess ment Is person deaf or have serious hearing difficult y? No 07/05/2024 Is person blind or have serious difficulty seein g? No 07/05/2024 Does person have serious dif ficulty walking/climbing stairs? Yes 07/05/2024 Does person have difficulty dressing/bathing? Ye s 07/05/2024 Does person have difficulty doing errands alone? Yes 07/05/2024 Cognitive Status Response Date of Assessm ent Does person have difficulty concentrating/remembering/making decisions? No 07/05/2024 Plan of Treatment Not on file Procedures Procedure Name Priority Date/Time Associated Diagnosis Comments GLUCOSE - POINT OF CARE Routine 07/10/2024 11:33 AM BANKRUPTCY JUDGE PHOSPHORUS BLOOD Routine 07/09/2024 3:40 AM BANKRUPTCY JUDGE MAGNESIUM BLOOD Routine 07/09/2024 3:40 AM BANKRUPTCY JUDGE BASIC METABOLIC PANEL (CALCIUM TOTAL) Routine 07/09/2024 3:40 AM BANKRUPTCY JUDGE CBC W AUTO DIFFERENTIAL Routine 07/09/2024 3:39 AM BANKRUPTCY JUDGE PHOSPHORUS BLOOD Routine 07/08/2024 8:43 PM BANKRUPTCY JUDGE MAGNESIUM BLOOD Routine 07/08/2024 8:43 PM BANKRUPTCY JUDGE CBC W AUTO DIFFERENTIAL Routine 07/08/2024 8:43 PM BANKRUPTCY JUDGE BASIC METABOLIC PANEL (CALCIUM TOTAL) Routine 07/08/2024 8:43 PM BANKRUPTCY JUDGE PHOSPHORUS BLOOD Routine 07/07/2024 6:22 AM BANKRUPTCY JUDGE MAGNESIUM BLOOD Routine 07/07/2024 6:22 AM BANKRUPTCY JUDGE CBC W AUTO DIFFERENTIAL Routine 07/07/2024 6:22 AM BANKRUPTCY JUDGE BASIC METABOLIC PANEL (CALCIUM TOTAL) Routine 07/07/2024 6:22 AM BANKRUPTCY JUDGE CBC W AUTO DIFFERENTIAL Routine 07/06/2024 7:01 AM BANKRUPTCY JUDGE PHOSPHORUS BLOOD Routine 07/06/2024 7:00 AM BANKRUPTCY JUDGE MAGNESIUM BLOOD Routine 07/06/2024 7:00 AM BANKRUPTCY JUDGE BASIC METABOLIC PANEL (CALCIUM TOTAL) Routine 07/06/2024 7:00 AM BANKRUPTCY JUDGE SARS-COV-2 (COVID-19) RAPID STAT 07/05/2024 1:45 PM BANKRUPTCY JUDGE Fall, initial encounter CARDIAC EKG ORDER 07/05/2024 11: 30 AM BANKRUPTCY JUDGE PHOSPHORUS BLOOD STAT 07/05/2024 3:59 AM BANKRUPTCY JUDGE MAGNESIUM BLOOD STAT 07/05/2024 3:59 AM BANKRUPTCY JUDGE CBC W AUTO DIFFERENTIAL STAT 07/05/2024 3:59 AM BANKRUPTCY JUDGE BASIC METABOLIC PANEL (CALCIUM TOTAL) STAT 07/05/2024 3:59 AM BANKRUPTCY JUDGE URINALYSIS W/MICROSCOPIC NO CULTURE STAT 07/05/2024 3:59 AM BANKRUPTCY JUDGE URINE DRUG SCREEN IMMUNOASSAY STAT 07/05/2024 3:[address] HEAD WO CONTRAST STAT 07/04/2024 1 1:19 AM BANKRUPTCY JUDGE SDH (subdural hematoma) (HCC) BLOOD TYPE VERIFICATION STAT 07/04/2024 9:40 AM BANKRUPTCY JUDGE TYPE + SCREEN PANEL STAT 07/04/2024 9 :38 AM BANKRUPTCY JUDGE EKG 12-LEAD STAT 07/04/2024 6:31 AM BANKRUPTCY JUDGE Fall, initial encounter PTT SLH STAT 07/04/2024 6:24 AM BANKRUPTCY JUDGE PT-INR SLH STAT 07/04/2024 6:[address] LUMBAR SPINE WO CONTRAST STAT 07/04/2024 6:23 AM BANKRUPTCY JUDGE Fall, initial encounter CT THORACIC SPINE WO CONTRAST STAT 07/04/2024 6:23 AM BANKRUPTCY JUDGE Fall, initial encounter CT CHEST ABDOMEN PELVIS W CONT STAT 07/04/2024 6:23 AM BANKRUPTCY JUDGE Fall, initial encounter CT CERVICAL SPINE WO CONTRAST STAT 07/04/2024 6:23 AM BANKRUPTCY JUDGE Fall, initial encounter CT HEAD WO CONTRAST STAT 07/04/2024 6 :23 AM BANKRUPTCY JUDGE Fall, initial encounter TEG 6S PLATELET MAPPING STAT 07/04/2024 6:00 AM BANKRUPTCY JUDGE TEG 6 GLOBAL HEMOSTASIS W/ LYSIS STAT 07/04/2024 6:00 AM BANKRUPTCY JUDGE CBC W AUTO DIFFERENTIAL STAT 07/04/2024 6:00 AM BANKRUPTCY JUDGE BASIC METABOLIC PANEL (CALCIUM TOTAL) STAT 07/04/2024 6:00 AM BANKRUPTCY JUDGE ALCOHOL ETHYL BLOOD STAT 07/04/2024 6 :00 AM BANKRUPTCY JUDGE XR PELVIS 1 OR 2VW STAT 07/04/2024 6: 00 AM BANKRUPTCY JUDGE Fall, initial encounter XR CHEST 1VW PORTABLE STAT 07/04/2024 6:00 AM BANKRUPTCY JUDGE Fall, initial encounter from Last 3 Months Results * (ABNORMAL) GLUCOSE - POINT OF CARE (07/10/2024 11:33 AM BANKRUPTCY JUDGE) Glucose WB/POC 131(H) 70 - 99 mg/dL 07/10/2024 3:47 PM BANKRUPTCY JUDGE [facility] Specimen Type Cap Fingerstick 2024 3:47 PM BANKRUPTCY JUDGE [facility] Blood BLOOD SPECIMEN / Unknown 07/10/2024 11:33 AM BANKRUPTCY JUDGE 07/10/2024 3:47 PM BANKRUPTCY JUDGE Cinthya Orantes MD LAB - POINT OF CARE ORDERABLES [address] [address], [place] [phone] * (ABNORMAL) BASIC METABOLIC PANEL (CALCIUM TOTAL) (07/09/2024 3:40 AM BANKRUPTCY JUDGE) Only the most recent of6 resultswithin the time period is included. BUN 26 7 - 26 mg/dL 07/09/2024 4:55 AM [facility] Creatinine 1.05 0.71 - 1.16 mg/dL 07/09/2024 4:55 AM [facility] Sodium 139 136 - 145 mmol/L 07/09/2024 4:55 AM [facility] Potassium 4.2 3.5 - 4.5 mmol/L 07/09/2024 4:55 AM [facility] Chloride 108(H) 98 - 107 mmol/L 07/09/2024 4:55 AM [facility] CO2 24 22 - 29 mmol/L 07/09/2024 4:55 AM [facility] Glucose 85 70 - 99 mg/dL 07/09/2024 4:55 AM [facility] Calcium 8.1(L) 8.4 - 10.2 mg/dL 07/09/2024 4:55 AM [facility] Anion Gap 7 6 - 16 07/09/2024 4:55 AM [facility] BUN/Creatinine Ratio 25(H) 7 - 23 07/09/2024 4:55 AM [facility] Osmolality Calculated 292 275 - 295 mOsm/kg 07/09/2024 4:55 AM [facility] eGFR by CKD-EPI 71(L) >=90 mL/min/1.7 3 m2 07/09/2024 4:55 AM [facility] Blood BLOOD SPECIMEN / Unknown Lab Venipuncture / Unknown 07/09/2024 3:40 AM BANKRUPTCY JUDGE 07/09/2024 4:29 AM [facility] Cinthya Orantes MD LAB - CHEMISTRY ORDERABLES [facility] [address] [place] [id number], [facility] [phone] * PHOSPHORUS BLOOD (07/09/2024 3:40 AM BANKRUPTCY JUDGE) Only the most recent of5 resultswithin the time period is included. Phosphorus 3.5 2.8 - 5.1 mg/dL 07/09/2024 4:55 AM [facility] Blood BLOOD SPECIMEN / Unknown Lab Venipuncture / Unknown 07/09/2024 3:40 AM BANKRUPTCY JUDGE 07/09/2024 4:29 AM BANKRUPTCY JUDGE Cinthya Orantes MD LAB - CHEMISTRY ORDERABLES [address] [address], [facility] [phone] * MAGNESIUM BLOOD (07/09/2024 3:40 AM BANKRUPTCY JUDGE) Only the most recent of5 resultswithin the time period is included. Magnesium 2.0 1.6 - 2.6 mg/dL 07/09/2024 4:55 AM [facility] Blood BLOOD SPECIMEN / Unknown Lab Venipuncture / Unknown 07/09/2024 3:40 AM BANKRUPTCY JUDGE 07/09/2024 4:29 AM BANKRUPTCY JUDGE Cinthya Orantes MD LAB - CHEMISTRY ORDERABLES Performing Organization Address City/[facility]/ZIP Co de Phone Number [address] [address], [facility] [phone] * (ABNORMAL) CBC W AUTO DIFFERENTIAL (07/09/2024 3:39 AM BANKRUPTCY JUDGE) Only the most recent of6 resultswithin the time period is included. WBC 5.8 4.0 - 10.7 x10E9/L 07/09/2024 4:44 AM [facility] RBC Count 4.13(L) 4.30 - 5.80 x10E12/L 07/09/2024 4:44 AM [facility] Hemoglobin 12.2(L) 13.3 - 17.5 g/dL 07/09/2024 4:44 AM [facility] Hematocrit 36.8(L) 38.7 - 51.1 % 07/09/2024 4:44 AM [facility] MCV 89.1 80.0 - 98.0 fL 07/09/2024 4:44 AM [facility] MCH 29.5 26.7 - 33.6 pg 07/09/2024 4:44 AM [facility] MCHC 33.2 31.7 - 36.3 g/dL 07/09/2024 4:44 AM [facility] RDW-CV 14.0 11.3 - 14.8 % 07/09/2024 4:44 AM [facility] Platelet Count 105(L) 150 - 420 x10E9/L 07/09/2024 4:44 AM [facility] MPV 10.2 7.8 - 11.4 fL 07/09/2024 4:44 AM [facility] Neutrophil % 59.2 41.0 - 74.0 % 07/09/2024 4:44 AM [facility] Lymphocyte % 21.8 17.0 - 47.0 % 07/09/2024 4:44 AM [facility] Monocyte % 9.3 3.0 - 11.0 % 07/09/2024 4:44 AM [facility] Eosinophil % 8.8(H) 0.0 - 7.0 % 07/09/2024 4:44 AM [facility] Basophil % 0.7 0.0 - 1.6 % 07/09/2024 4:44 AM [facility] Immature Granulocytes % 0.2 0.0 - 1.0 % 07/09/2024 4:44 AM [facility] Neutrophil Absolute 3.42 1.60 - 7.50 x10E9/L 07/09/2024 4:44 AM [facility] Lymphocyte Absolute 1.26 1.00 - 4.40 x10E9/L 07/09/2024 4:44 AM [facility] Monocyte Absolute 0.54 0.15 - 1.00 x10E9/L 07/09/2024 4:44 AM [facility] Eosinophil Absolute 0.51 0.00 - 0.60 x10E9/L 07/09/2024 4:44 AM [facility] Basophil Absolute 0.04 0.00 - 0.13 x10E9/L 07/09/2024 4:44 AM [facility] Blood BLOOD SPECIMEN / Unknown Lab Venipuncture / Unknown 07/09/2024 3:39 AM BANKRUPTCY JUDGE 07/09/2024 4:27 AM BANKRUPTCY JUDGE Cinthya Orantes MD LAB - HEMATOLOG Y ORDERABLES Performing Organization Address [facility] Co de Phone Number [address] [address], [facility] [phone] * SARS-COV-2 (COVID-19) RAPID (07/05/2024 1:45 PM BANKRUPTCY JUDGE) COVID-19 PCR Not detected Not detected 07/05/19 2:26 PM BANKRUPTCY JUDGE [facility] Microbiology SPECIMEN FROM NASOPHARYNGEAL STRUCTURE / Unknown Collection / Unknown 07/05/2024 1:45 PM BANKRUPTCY JUDGE 07/05/2024 1:53 PM BANKRUPTCY JUDGE Narrative [facility] - 07/05/2024 2:26 PM BANKRUPTCY JUDGE The [employer] Xpert Xpress SARS-COV-2 has been authorized by the Food and Drug Administration (FDA) under an Emergency Use Authorization (EUA). This test has been validated in accordance with the FDA's guidance document Policy for Diagnostic Testing in Laboratories Certified to perform High Complexity Testing under CLIA prior to Emergency Use Authorization for Coronavirus Disease-2019 during the Public Health Emergency issued on August 04, 2019. FDA independent review of this validation is pending. This test is only authorized for the duration of the time the declaration that circumstances exist justifying the authorization of emergency use of in vitro diagnostic tests for detection of SARS-COV-2 virus and/or diagnosis of COVID-19 infection under 564(b) (1) of the Act. 21 U.S.C. 360bbb-3 (b) (1), unless the authorization is terminated or revoked sooner. Fact Sheets for this EUA assay are available upon request. Albert Rivera MD LAB - MICROBIOLOGY O RDERABLES Performing Organization Address [facility]/ZIP Co de Phone Number [address] [phone], [facility] [phone] * CARDIAC EKG ORDER (07/05/2024 11:30 AM BANKRUPTCY JUDGE) Narrative 07/05/2024 11:30 AM [facility] Ordered by an unspecified provider. Scanned Document CARDIAC SERVICES ORD ERABLES * (ABNORMAL) URINALYSIS W/MICROSCOPIC NO CULTURE (07/05/2024 3:59 AM BANKRUPTCY JUDGE) Color UA Yellow Straw, Yellow 07/05/2024 4:24 AM [facility] Clarity UA Slt Cloudy(A) Clear 07/05/2024 4:24 AM [facility] Specific [place] UA 1.032(H) 1.005 - 1.030 07/05/2024 4:24 AM [facility] pH UA 5.0 5.0 - 8.0 pH 07/05/2024 4:24 AM [facility] Protein UA Negative Negative 07/05/2024 4:24 AM [facility] Glucose UA Negative Negative 07/05/2024 4:24 AM [facility] Ketone UA Trace(A) Negative 07/05/2024 4:24 AM [facility] Bilirubin UA Negative Negative 07/05/2024 4:24 AM [facility] Blood UA Negative Negative 07/05/2024 4:24 AM [facility] Nitrite UA Negative Negative 07/05/2024 4:24 AM [facility] Leukocyte Esterase Trace(A) Negative 07/05/2024 4:24 AM [facility] Urobilinogen UA Negative Negative mg/dL 07/05/2024 4:24 AM [facility] RBC UA 21-50(A) None Seen, 0-2, 3-5 /HPF 07/05/2024 4:24 AM [facility] WBC UA 11-20(A) None Seen, 0-5 /HPF 07/05/2024 4:24 AM [facility] Bacteria UA 1+(A) None /HPF 07/05/2024 4:24 AM [facility] Squamous Epithelial Cells UA None Seen None Seen, 0-2, 3-5 /HPF 07/05/2024 4:24 AM [facility] Amorphous Crystals Few(A) None /HPF 07/05/2024 4:24 AM [facility] Urine URINE SPECIMEN OBTAINED BY CLEAN CATCH PROCEDURE / Unknown Collection / Unknown 07/05/2024 3:59 AM BANKRUPTCY JUDGE 07/05/2024 4:03 AM [facility] Narrative [facility] - 07/05/2024 4:24 AM BANKRUPTCY JUDGE Cinthya Orantes MD LAB - URINALYSI S ORDERABLES [facility] [address] [place] [phone], [facility] [phone] * (ABNORMAL) URINE DRUG SCREEN IMMUNOASSAY (07/05/2024 3:59 AM BANKRUPTCY JUDGE) [facility] Amphetamines Screen Urine Negative Negative : < 1000 ng/mL 07/05/2024 4:42 AM [facility] Barbiturates Screen Urine Positive(A) Negative : < 200 ng/mL 07/05/2024 4:42 AM [facility] Comment: Positive urine barbiturate screening results should be confirmed by another generally accepted non-immunological method such as gas chromatography or mass spectrometry. Benzodiazepine Screen Urine Negative Negative : < 200 ng/mL 07/05/2024 4:42 AM [facility] Opiates Urine Negative Negative : < 300 ng/mL 07/05/2024 4:42 AM [facility] Cocaine Metabolites Urine Negative Negative : < 300 ng/mL 07/05/2024 4:42 AM [facility] Phencyclidine Screen Urine Negative Negative : < 25 ng/ml 07/05/2024 4:42 AM [facility] Cannabinoids Screen Urine Negative Negative : <50 ng/mL 07/05/2024 4:42 AM [facility] Methadone Screen Urine Negative Negative : < 300 ng/mL 07/05/2024 4:42 AM [facility] Fentanyl Screen Urine Negative Negative : <1.5 ng/mL 07/05/2024 4:42 AM [facility] Urine URINE / Unknown Collection / Unknown 07/05/2024 3:59 AM BANKRUPTCY JUDGE 07/05/2024 4:04 AM [facility] Narrative [facility] - 07/05/2024 4:42 AM BANKRUPTCY JUDGE The Urine Toxicology Screening Panel does not screen for Propoxyphene, Meprobamate, Carisoprodol, Trazodone, ocmq-meg-oyduvkg medications and/or volatiles (Acetone, Isopropanol, Methanol or Ethylene Glycol). Ethanol, Salicylate, Acetaminophen, Tricyclic Antidepressants and several therapeutic drugs may be individually assayed in serum or plasma specimen. Toxicology testing by the [facility] is an aid to medical diagnosis and treatment of patients. No documented chain of custody was maintained. Results are intended to be used for clinical purposes only. Cinthya Orantes MD LAB - URINE ANDRA TRIPP ORDERABLES [facility] [address] [place] [address], [facility] [phone] * CT Head Wo Contrast (07/04/2024 11:19 AM BANKRUPTCY JUDGE) Only the most recent of2 resultswithin the time period is included. Anatomical Region Laterality Modality Head Computed Tomogra phy 07/04/2024 11:3 9 AM BANKRUPTCY JUDGE Impressions 07/04/2024 11:42 AM BANKRUPTCY JUDGE IMPRESSION: 1. Unchanged size of the bilateral subdural hematomas along the cerebral convexities measuring up to 5 mm in maximum thickness. Slightly increased attenuation is likely related to contrast staining from the previous examinations. > Interpreting Provider: Veda Monk MD on 07/04/2024 11:42 AM Narrative 07/04/2024 11:42 AM BANKRUPTCY JUDGE PROCEDURE: CT HEAD WO CONTRAST, DATE/TIME OF EXAM: 07/04/2024 11:19 AM, LOCATION [facility] INDICATION: S06.5XAA: SDH (subdural hematoma) (HCC) ADDITIONAL CLINICAL INFORMATION: Ordering Provider Reason For Exam: repeat per NSGY recs Technologist Note: Additional: TECHNIQUE: CT of the head was performed without contrast according to standard protocol. CONTRAST: COMPARISON: 07/04/2024. FINDINGS: The study is degraded by motion artifacts which can obscure abnormalities. Unchanged size of the bilateral subdural hematomas along the cerebral convexities measuring up to 5 mm in maximum thickness. Slightly increased attenuation is likely related to contrast staining from the previous examinations. There is mild cerebral volume loss with associated ex vacuo ventricular dilatation. The basal cisterns are patent. No midline shift. The acevedo-white matter differentiation is normal. Periventricular white matter hypoattenuation is a nonspecific finding that may be indicative of chronic small vessel ischemic disease. There is atherosclerotic calcification of the carotid siphons. The visualized portions of the orbits, paranasal sinuses, and mastoids appear normal. No acute calvarial fracture is identified. Procedure Note Veda Monk MD - 07/04/2024 PROCEDURE: CT HEAD WO CONTRAST, DATE/TIME OF EXAM: 07/04/2024 11:19 AM, LOCATION [facility] INDICATION: S06.5XAA: SDH (subdural hematoma) (HCC) ADDITIONAL CLINICAL INFORMATION: Ordering Provider Reason For Exam: repeat per NSGY recs Technologist Note: Additional: TECHNIQUE: CT of the head was performed without contrast according to standard protocol. CONTRAST: COMPARISON: 07/04/2024. FINDINGS: The study is degraded by motion artifacts which can obscureabnormalities. Unchanged size of the bilateral subdural hematomas along the cerebral convexities measuring up to 5 mm in maximum thickness. Slightlyincreased attenuation is likely related to contrast staining from the previous examinations. There is mild cerebral volume loss with associated exvacuo ventricular dilatation. The basal cisterns are patent. No midline shift. The acevedo-white matter differentiation is normal. Periventricular white matter hypoattenuation is a nonspecific finding that may be indicativeof chronic small vessel ischemic disease. There is atherosclerotic calcification of the carotid siphons. The visualized portions of the orbits, paranasal sinuses, and mastoids appear normal. No acute calvarial fracture is identified. IMPRESSION: 1. Unchanged size of the bilateral subdural hematomas along the cerebral convexities measuring up to 5 mm in maximum thickness. Slightlyincreased attenuation is likely related to contrast staining from the previous examinations. > Interpreting Provider: Veda Monk MD on 07/04/2024 11:42 AM Cinthya Orantes MD CT ORDERABLES * BLOOD TYPE VERIFICATION (07/04/2024 9:40 AM BANKRUPTCY JUDGE) ABO Rh O POS 07/04/2024 10:38 AM BANKRUPTCY JUDGE [facility] Blood Bank BLOOD SPECIMEN / Unknown Venipuncture / Unknown 07/04/2024 9:40 AM BANKRUPTCY JUDGE 07/04/2024 9:52 AM BANKRUPTCY JUDGE Cinthya Orantes MD LAB - BLOOD BAN K ORDERABLES Performing Organization Address City/[facility]/ZIP Co de Phone Number [facility] [address] [place] [address], [facility] [phone] * TYPE + SCREEN PANEL (07/04/2024 9:38 AM BANKRUPTCY JUDGE) Antibody Screen NEG 10:56 AM BANKRUPTCY JUDGE [facility] LAB ABO Rh O POS 07/04/2024 10:56 AM BANKRUPTCY JUDGE [facility] B[facility] LAB Blood Bank BLOOD SPECIMEN / Unknown Venipuncture / Unknown 07/04/2024 9:38 AM BANKRUPTCY JUDGE 07/04/2024 9:51 AM BANKRUPTCY JUDGE Cinthya Orantes MD LAB - BLOOD BAN K ORDERABLES Performing Organization Address [facility] Co de Phone Number [facility] BLOOD BANK LAB [address] [place] [address], [facility] [phone] * EKG 12-LEAD (07/04/2024 6:31 AM BANKRUPTCY JUDGE) Ventricular Rate 60 BPM SL MUSE Atrial Rate 60 BPM [facility] MUSE P-R Interval 180 ms [facility] MUSE QRS Duration ms 80 ms [facility] MUSE Q-T Interval ms 418 ms [facility] MUSE QTC Calculation (Bezet) 418 ms [facility] MUSE Calculated P [place] 52 degrees SL MUSE Calculated R [place] -26 degrees [facility] MUSE Calculated T [place] 46 degrees [facility] MUSE Interpretation EKG NORMAL SINUS RHYTHM LOW VOLTAGE QRS SEPTAL INFARCT , AGE UNDETERMINED ABNORMAL ECG NO PREVIOUS ECGS AVAILABLE Confirmed by BERNADETTE ANDRADE, KATY ([id number]) on 07/13/2024 10:51:42 PM [facility] MUSE 07/04/2024 6:31 AM BANKRUPTCY JUDGE 07/13/2024 10:51 PM BANKRUPTCY JUDGE Cinthya Orantes MD ECG ORDERABLES Performing Organization Address City/[facility]/ZIP Co de Phone Number [facility] MUSE * PTT [facility] (07/04/2024 6:24 AM BANKRUPTCY JUDGE) APTT 23.3 23.0 - 38.4 Seconds 07/04/2024 7:00 AM [facility] Comment:Suggested therapeuti c range for full dose I.V. unfractionated heparin therapy for venous thromboembolism is 71 to 109 seconds. Blood BLOOD SPECIMEN / Unknown Venipuncture / Unknown 07/04/2024 6:24 AM BANKRUPTCY JUDGE 07/04/2024 6:35 AM BANKRUPTCY JUDGE Cinthya Orantes MD LAB - COAGULATI ON ORDERABLES [facility] [address] [place] [address], [facility] [phone] * PT-INR [facility] (07/04/2024 6:24 AM BANKRUPTCY JUDGE) PT 14.2 12.1 - 14.8 Seconds 07/04/2024 7:00 AM [facility] INR 1.1 See Comment 07/04/2024 7:00 AM [facility] Comment:The suggested therap eutic range for standard coumadin (warfarin) therapy is an INR of 2.0-3.0. For high-risk patients (Mechanical Mitral Valve Prosthesis, etc.), the suggested prophylactic therapeutic range is an INR of 2.5-3.5. Blood BLOOD SPECIMEN / Unknown Venipuncture / Unknown 07/04/2024 6:24 AM BANKRUPTCY JUDGE 07/04/2024 6:35 AM BANKRUPTCY JUDGE Cinthya Orantes MD LAB - COAGULATI ON ORDERABLES [facility] [address] [place] [address], [facility] [phone] * CT CHEST ABDOMEN PELVIS W CONT - Abdomen-pelvis trauma, blunt or penetrating (07/04/2024 6:23 AM BANKRUPTCY JUDGE) Anatomical Region Laterality Modality Chest, Abdomen, Pelvis Computed Tomography 07/04/2024 6:27 AM BANKRUPTCY JUDGE Impressions 07/04/2024 9:01 AM BANKRUPTCY JUDGE Impression: 1.No acute visceral, vascular, or osseus injury identified in the chest, abdomen, or pelvis. 2.Ectatic ascending aorta. 3.Moderate hiatal hernia. 4.Soft tissue contusion of right gluteal region. 5.Enlarged prostate with mild bladder wall thickening with slightly trabeculated appearance and a few diverticula overall favored to be related to underlying chronic bladder outlet obstruction. > Dictated by Ant De Jesus MD ([place]). I, Puneet Perez have personally reviewed and interpreted this examination/study. > Interpreting Provider: Puneet Perez on 07/04/2024 9:01 AM Narrative 07/04/2024 9:01 AM BANKRUPTCY JUDGE PROCEDURE: CT CHEST ABDOMEN PELVIS W CONT, DATE/TIME OF EXAM: 07/04/2024 6:23 AM, LOCATION [facility] INDICATION: Trauma ADDITIONAL CLINICAL INFORMATION: Ordering Provider Reason For Exam: Technologist Note: Additional: COMPARISON: None. TECHNIQUE: CT of the chest, abdomen, and pelvis was performed after the uneventful administration of 100 mL of Isovue 370 intravenous contrast according to standard protocol. Findings: Chest: Lower Neck and Axillae: Normal. Lungs: Bilateral dependent atelectasis, otherwise there is no pulmonary parenchymal or airway process is present. No suspicious pulmonary nodules are identified. No pleural fluid or pneumothorax is present. Heart and Pericardium: The cardiac chambers are normal in size. No pericardial fluid or thickening is present. Mediastinum and Cee: No mediastinal hemorrhage is present. No enlarged lymph nodes are present. Thoracic Vasculature: Ectatic ascending thoracic aorta, measuring 4.2 cm. Atherosclerotic calcifications of the aortic arch. Abdomen/pelvis: Liver: A 2 cm hypoattenuating hepatic lesion in hepatic segment 2 likely represent hepatic cyst. Otherwise liver parenchyma enhances symmetrically. Gallbladder and Bile Ducts: Normal. Spleen: Spleen is mildly enlarged measuring 14.5 cm. 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 Adrenals: Normal. Kidneys: Bilateral kidney are atrophic. Multiple bilateral hypoattenuating lesion with attenuation near to simple fluid, representing renal cysts, the largest one in the upper pole of the left kidney measures 5 cm. This includes the presence of parapelvic cysts. No hydronephrosis. Gastrointestinal: Moderate-sized hiatal hernia. No evidence of obstruction. The visualized loops of large and small bowel are unremarkable. The appendix is not seen; however, no inflammatory changes are seen in the right lower quadrant. Mesentery/Peritoneum/Retroperitoneum: No free intraperitoneal air. No free fluid in the abdomen or pelvis. Bladder: Mild bladder wall thickening noted with slightly trabeculated appearance and a few diverticula. Reproductive Organs: The prostate is enlarged, measuring 5.5 cm transversely. Abdominal Vasculature: Atherosclerotic calcification of the aorta and its branch vessels. Bones: Bone windows demonstrate no suspicious lytic or blastic lesions. The visible osseous structures are intact. Degenerative changes are seen in the spine. Chronic fracture of the left-sided lateral 7th through 10th ribs. Old fracture deformity involving the medial aspect of the right clavicle. Soft tissues: Soft tissue contusion of right gluteal region. Incidental intramuscular lipoma within the left trapezius muscle. Procedure Note Puneet Perez MD - 07/04/2024 PROCEDURE: CT CHEST ABDOMEN PELVIS W CONT, DATE/TIME OF EXAM:07/04/2024 6:23 AM, LOCATION [facility] INDICATION: Trauma ADDITIONAL CLINICAL INFORMATION: Ordering Provider Reason For Exam: Technologist Note: Additional: COMPARISON: None. TECHNIQUE: CT of the chest, abdomen, and pelvis was performed after the uneventful administration of 100 mL of Isovue 370 intravenous contrast according to standard protocol. Findings: Chest: Lower Neck and Axillae: Normal. Lungs: Bilateral dependent atelectasis, otherwise there is no pulmonary parenchymal or airway process is present. No suspicious pulmonarynodules are identified. No pleural fluid or pneumothorax is present. Heart and Pericardium: The cardiac chambers are normal in size. No pericardial fluid orthickening is present. Mediastinum and Cee: No mediastinal hemorrhage is present. No enlarged lymph nodes arepresent. Thoracic Vasculature: Ectatic ascending thoracic aorta, measuring 4.2 cm. Atherosclerotic calcifications of the aortic arch. Abdomen/pelvis: Liver: A 2 cm hypoattenuating hepatic lesion in hepatic segment 2 likelyrepresent hepatic cyst. Otherwise liver parenchyma enhances symmetrically. Gallbladder and Bile Ducts: Normal. Spleen: Spleen is mildly enlarged measuring 14.5 cm. 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 Adrenals: Normal. Kidneys: Bilateral kidney are atrophic. Multiple bilateral hypoattenuating lesion with attenuation near to simple fluid, representing renal cysts, the largest one in the upper pole of the left kidney measures 5 cm. This includes the presence of parapelvic cysts. No hydronephrosis. Gastrointestinal: Moderate-sized hiatal hernia. No evidence of obstruction. The visualized loops of large and small bowel are unremarkable. The appendix is notseen; however, no inflammatory changes are seen in the right lower quadrant. Mesentery/Peritoneum/Retroperitoneum: No free intraperitoneal air. No free fluid in the abdomen or pelvis. Bladder: Mild bladder wall thickening noted with slightly trabeculated appearance and a few diverticula. Reproductive Organs: The prostate is enlarged, measuring 5.5 cm transversely. Abdominal Vasculature: Atherosclerotic calcification of the aorta and its branch vessels. Bones: Bone windows demonstrate no suspicious lytic or blastic lesions. The visible osseous structures are intact. Degenerative changes are seen inthe spine. Chronic fracture of the left-sided lateral 7th through 10th ribs. Old fracture deformity involving the medial aspect of the right clavicle. Soft tissues: Soft tissue contusion of right gluteal region. Incidental intramuscular lipoma within the left trapezius muscle. Impression: 1.No acute visceral, vascular, or osseus injury identified in the chest, abdomen, or pelvis. 2.Ectatic ascending aorta. 3.Moderate hiatal hernia. 4.Soft tissue contusion of right gluteal region. 5.Enlarged prostate with mild bladder wall thickening with slightly trabeculated appearance and a few diverticula overall favored to berelated to underlying chronic bladder outlet obstruction. > Dictated by Ant De Jesus MD ([place]). I, Puneet Perez have personally reviewed and interpreted this examination/study. > Interpreting Provider: Puneet Perez on 07/04/2024 9:01 AM Cinthya Orantes MD CT ORDERABLES * CT LUMBAR SPINE WO CONTRAST - T/L-spine trauma, Spine fracture (07/04/2024 6:23 AM BANKRUPTCY JUDGE) Anatomical Region Laterality Modality Spine Computed Tomogra phy 07/04/2024 8:00 AM BANKRUPTCY JUDGE Impressions 07/04/2024 11:32 AM BANKRUPTCY JUDGE IMPRESSION: 1. No evidence of acute fracture in the cervical, thoracic, or lumbar spine. 2. Multiple chronic findings as detailed in the report. > Dictated by Arnoldo Banks MD, ([place]). I, Veda Monk MD have personally reviewed and interpreted this examination/study. > Interpreting Provider: Veda Monk MD on 07/04/2024 11:32 AM Narrative 07/04/2024 11:32 AM BANKRUPTCY JUDGE PROCEDURE: CT CERVICAL SPINE WO CONTRAST, CT LUMBAR SPINE WO CONTRAST, CT THORACIC SPINE WO CONTRAST, DATE/TIME OF EXAM: 07/04/2024 6:23 AM, LOCATION [facility] INDICATION: Trauma ADDITIONAL CLINICAL INFORMATION: Ordering Provider Reason For Exam: Technologist Note: Additional: EXAMINATION: 1. CT of the cervical spine without contrast 2. CT of the thoracic spine without contrast 3. CT of the lumbar spine without contrast TECHNIQUE: CT of the head and cervical spine were performed without contrast according to standard protocol. Reformatted axial, sagittal, and coronal images of the thoracic and lumbar spine were obtained by the technologist from a concurrently performed body CT and sent to the workstation for review. COMPARISON: No prior study is available for comparison at the time of this dictation. FINDINGS: Cervical spine: There is atherosclerotic calcification of the carotid bifurcations. Mild retrolisthesis of C3 on C4. The prevertebral soft tissue is normal in thickness. The bones are mildly osteopenic. Vertebral bodies are normal in height without evidence of acute fracture. Other than middle atlantoaxial joint osteoarthritis, the craniocervical junction appears normal. There is mild to moderate multilevel degenerative disc disease. The central canal is mildly stenotic at multiple levels. There are varying degrees of mild facet osteoarthritis. There are varying degrees of mild to moderate multilevel uncovertebral joint osteoarthritis Moderate to severe neuroforaminal stenosis is seen at C5-C6 and C6-C7 levels bilaterally. Thoracic spine: A moderate-sized hiatal hernia. There is a 1.7 x 6.4 x 9.0 cm intramuscular fat lesion in the left posterior chest wall with a focus of ossification, which may represent a lipoma or dermoid cyst. Mild dextroscoliosis. Slightly exaggerated thoracic kyphosis. The bones are mildly osteopenic. Vertebral bodies are normal in height without evidence of acute fracture. There is up to moderate multilevel degenerative disc disease. The central canal is patent. There are varying degrees of mild facet osteoarthritis. There are varying degrees of mild neuroforaminal stenosis. Lumbar spine: There is atherosclerotic calcification of the abdominal aorta and its branch vessels. Multiple simple cysts scattered throughout bilateral kidneys with atrophic appearance with multiple scarring of right kidney. Mild anterolisthesis of L5 on S1. Mild levoscoliosis. The mineralization of the bones is normal. Vertebral bodies are normal in height without evidence of acute fracture. There is up to severe multilevel degenerative disc and joint disease. Schmorl's node visualized in the superior endplate of L2. The central canal is moderately stenotic at L4-L5 There are varying degrees of up to moderate facet osteoarthritis [id number] neuroforaminal stenosis in the right L4-L5 neural foramina . Procedure Note Veda Monk MD - 07/04/2024 PROCEDURE: CT CERVICAL SPINE WO CONTRAST, CT LUMBAR SPINE WO CONTRAST,CT THORACIC SPINE WO CONTRAST, DATE/TIME OF EXAM: 07/04/2024 6:23 AM,LOCATION [facility] INDICATION: Trauma ADDITIONAL CLINICAL INFORMATION: Ordering Provider Reason For Exam: Technologist Note: Additional: EXAMINATION: 1. CT of the cervical spine without contrast 2. CT of the thoracic spine without contrast 3. CT of the lumbar spine without contrast TECHNIQUE: CT of the head and cervical spine were performed without contrast according to standard protocol. Reformatted axial, sagittal,and coronal images of the thoracic and lumbar spine were obtained by the technologist from a concurrently performed body CT and sent to the workstation for review. COMPARISON: No prior study is available for comparison at the time ofthis dictation. FINDINGS: Cervical spine: There is atherosclerotic calcification of the carotid bifurcations. Mild retrolisthesis of C3 on C4. The prevertebral soft tissue is normalin thickness. The bones are mildly osteopenic. Vertebral bodies are normalin height without evidence of acute fracture. Other than middleatlantoaxial joint osteoarthritis, the craniocervical junction appears normal. Thereis mild to moderate multilevel degenerative disc disease. The central canalis mildly stenotic at multiple levels. There are varying degrees of mildfacet osteoarthritis. There are varying degrees of mild to moderate multilevel uncovertebral joint osteoarthritis Moderate to severe neuroforaminal stenosis is seen at C5-C6 and C6-C7 levels bilaterally. Thoracic spine: A moderate-sized hiatal hernia. There is a 1.7 x 6.4 x 9.0 cmintramuscular fat lesion in the left posterior chest wall with a focus ofossification, which may represent a lipoma or dermoid cyst. Mild dextroscoliosis. Slightly exaggerated thoracic kyphosis. The bonesare mildly osteopenic. Vertebral bodies are normal in height withoutevidence of acute fracture. There is up to moderate multilevel degenerative disc disease. The central canal is patent. There are varying degrees of mild facet osteoarthritis. There are varying degrees of mild neuroforaminal stenosis. Lumbar spine: There is atherosclerotic calcification of the abdominal aorta and its branch vessels. Multiple simple cysts scattered throughout bilateral kidneys with atrophic appearance with multiple scarring of right kidney. Mild anterolisthesis of L5 on S1. Mild levoscoliosis. The mineralizationof the bones is normal. Vertebral bodies are normal in height withoutevidence of acute fracture. There is up to severe multilevel degenerative discand joint disease. Schmorl's node visualized in the superior endplate of L2. The central canal is moderately stenotic at L4-L5 There are varyingdegrees of up to moderate facet osteoarthritis [id number] neuroforaminal stenosis in the right L4-L5 neural foramina . IMPRESSION: 1. No evidence of acute fracture in the cervical, thoracic, or lumbar spine. 2. Multiple chronic findings as detailed in the report. > Dictated by Arnoldo Banks MD, ([place]). Veda Esparza MD have personally reviewed and interpreted this examination/study. > Interpreting Provider: Veda Monk MD on 07/04/2024 11:32 AM Cinthya Orantes MD CT ORDERABLES * CT THORACIC SPINE WO CONTRAST - T/L-spine trauma, spine fracture (07/04/2024 6:23 AM BANKRUPTCY JUDGE) Anatomical Region Laterality Modality Spine Computed Tomogra phy 07/04/2024 8:00 AM BANKRUPTCY JUDGE Impressions 07/04/2024 11:32 AM BANKRUPTCY JUDGE IMPRESSION: 1. No evidence of acute fracture in the cervical, thoracic, or lumbar spine. 2. Multiple chronic findings as detailed in the report. > Dictated by Arnoldo Banks MD, ([place]). Veda Esparza MD have personally reviewed and interpreted this examination/study. > Interpreting Provider: Veda Monk MD on 07/04/2024 11:32 AM Narrative 07/04/2024 11:32 AM BANKRUPTCY JUDGE PROCEDURE: CT CERVICAL SPINE WO CONTRAST, CT LUMBAR SPINE WO CONTRAST, CT THORACIC SPINE WO CONTRAST, DATE/TIME OF EXAM: 07/04/2024 6:23 AM, LOCATION [facility] INDICATION: Trauma ADDITIONAL CLINICAL INFORMATION: Ordering Provider Reason For Exam: Technologist Note: Additional: EXAMINATION: 1. CT of the cervical spine without contrast 2. CT of the thoracic spine without contrast 3. CT of the lumbar spine without contrast TECHNIQUE: CT of the head and cervical spine were performed without contrast according to standard protocol. Reformatted axial, sagittal, and coronal images of the thoracic and lumbar spine were obtained by the technologist from a concurrently performed body CT and sent to the workstation for review. COMPARISON: No prior study is available for comparison at the time of this dictation. FINDINGS: Cervical spine: There is atherosclerotic calcification of the carotid bifurcations. Mild retrolisthesis of C3 on C4. The prevertebral soft tissue is normal in thickness. The bones are mildly osteopenic. Vertebral bodies are normal in height without evidence of acute fracture. Other than middle atlantoaxial joint osteoarthritis, the craniocervical junction appears normal. There is mild to moderate multilevel degenerative disc disease. The central canal is mildly stenotic at multiple levels. There are varying degrees of mild facet osteoarthritis. There are varying degrees of mild to moderate multilevel uncovertebral joint osteoarthritis Moderate to severe neuroforaminal stenosis is seen at C5-C6 and C6-C7 levels bilaterally. Thoracic spine: A moderate-sized hiatal hernia. There is a 1.7 x 6.4 x 9.0 cm intramuscular fat lesion in the left posterior chest wall with a focus of ossification, which may represent a lipoma or dermoid cyst. Mild dextroscoliosis. Slightly exaggerated thoracic kyphosis. The bones are mildly osteopenic. Vertebral bodies are normal in height without evidence of acute fracture. There is up to moderate multilevel degenerative disc disease. The central canal is patent. There are varying degrees of mild facet osteoarthritis. There are varying degrees of mild neuroforaminal stenosis. Lumbar spine: There is atherosclerotic calcification of the abdominal aorta and its branch vessels. Multiple simple cysts scattered throughout bilateral kidneys with atrophic appearance with multiple scarring of right kidney. Mild anterolisthesis of L5 on S1. Mild levoscoliosis. The mineralization of the bones is normal. Vertebral bodies are normal in height without evidence of acute fracture. There is up to severe multilevel degenerative disc and joint disease. Schmorl's node visualized in the superior endplate of L2. The central canal is moderately stenotic at L4-L5 There are varying degrees of up to moderate facet osteoarthritis [id number] neuroforaminal stenosis in the right L4-L5 neural foramina . Procedure Note Veda Monk MD - 07/04/2024 PROCEDURE: CT CERVICAL SPINE WO CONTRAST, CT LUMBAR SPINE WO CONTRAST,CT THORACIC SPINE WO CONTRAST, DATE/TIME OF EXAM: 07/04/2024 6:23 AM,LOCATION [facility] INDICATION: Trauma ADDITIONAL CLINICAL INFORMATION: Ordering Provider Reason For Exam: Technologist Note: Additional: EXAMINATION: 1. CT of the cervical spine without contrast 2. CT of the thoracic spine without contrast 3. CT of the lumbar spine without contrast TECHNIQUE: CT of the head and cervical spine were performed without contrast according to standard protocol. Reformatted axial, sagittal,and coronal images of the thoracic and lumbar spine were obtained by the technologist from a concurrently performed body CT and sent to the workstation for review. COMPARISON: No prior study is available for comparison at the time ofthis dictation. FINDINGS: Cervical spine: There is atherosclerotic calcification of the carotid bifurcations. Mild retrolisthesis of C3 on C4. The prevertebral soft tissue is normalin thickness. The bones are mildly osteopenic. Vertebral bodies are normalin height without evidence of acute fracture. Other than middleatlantoaxial joint osteoarthritis, the craniocervical junction appears normal. Thereis mild to moderate multilevel degenerative disc disease. The central canalis mildly stenotic at multiple levels. There are varying degrees of mildfacet osteoarthritis. There are varying degrees of mild to moderate multilevel uncovertebral joint osteoarthritis Moderate to severe neuroforaminal stenosis is seen at C5-C6 and C6-C7 levels bilaterally. Thoracic spine: A moderate-sized hiatal hernia. There is a 1.7 x 6.4 x 9.0 cmintramuscular fat lesion in the left posterior chest wall with a focus ofossification, which may represent a lipoma or dermoid cyst. Mild dextroscoliosis. Slightly exaggerated thoracic kyphosis. The bonesare mildly osteopenic. Vertebral bodies are normal in height withoutevidence of acute fracture. There is up to moderate multilevel degenerative disc disease. The central canal is patent. There are varying degrees of mild facet osteoarthritis. There are varying degrees of mild neuroforaminal stenosis. Lumbar spine: There is atherosclerotic calcification of the abdominal aorta and its branch vessels. Multiple simple cysts scattered throughout bilateral kidneys with atrophic appearance with multiple scarring of right kidney. Mild anterolisthesis of L5 on S1. Mild levoscoliosis. The mineralizationof the bones is normal. Vertebral bodies are normal in height withoutevidence of acute fracture. There is up to severe multilevel degenerative discand joint disease. Schmorl's node visualized in the superior endplate of L2. The central canal is moderately stenotic at L4-L5 There are varyingdegrees of up to moderate facet osteoarthritis [id number] neuroforaminal stenosis in the right L4-L5 neural foramina . IMPRESSION: 1. No evidence of acute fracture in the cervical, thoracic, or lumbar spine. 2. Multiple chronic findings as detailed in the report. > Dictated by Arnoldo Banks MD, ([place]). Veda Esparza MD have personally reviewed and interpreted this examination/study. > Interpreting Provider: Veda Monk MD on 07/04/2024 11:32 AM Cinthya Orantes MD CT ORDERABLES * CT CERVICAL SPINE WO CONTRAST - C-Spine Trauma, Spine fracture (07/04/2024 6:23 AM BANKRUPTCY JUDGE) Anatomical Region Laterality Modality Spine Computed Tomogra phy 07/04/2024 8:00 AM BANKRUPTCY JUDGE Impressions 07/04/2024 11:32 AM BANKRUPTCY JUDGE IMPRESSION: 1. No evidence of acute fracture in the cervical, thoracic, or lumbar spine. 2. Multiple chronic findings as detailed in the report. > Dictated by Arnoldo Banks MD, ([place]). Veda Esparza MD have personally reviewed and interpreted this examination/study. > Interpreting Provider: Veda Monk MD on 07/04/2024 11:32 AM Narrative 07/04/2024 11:32 AM BANKRUPTCY JUDGE PROCEDURE: CT CERVICAL SPINE WO CONTRAST, CT LUMBAR SPINE WO CONTRAST, CT THORACIC SPINE WO CONTRAST, DATE/TIME OF EXAM: 07/04/2024 6:23 AM, LOCATION [facility] INDICATION: Trauma ADDITIONAL CLINICAL INFORMATION: Ordering Provider Reason For Exam: Technologist Note: Additional: EXAMINATION: 1. CT of the cervical spine without contrast 2. CT of the thoracic spine without contrast 3. CT of the lumbar spine without contrast TECHNIQUE: CT of the head and cervical spine were performed without contrast according to standard protocol. Reformatted axial, sagittal, and coronal images of the thoracic and lumbar spine were obtained by the technologist from a concurrently performed body CT and sent to the workstation for review. COMPARISON: No prior study is available for comparison at the time of this dictation. FINDINGS: Cervical spine: There is atherosclerotic calcification of the carotid bifurcations. Mild retrolisthesis of C3 on C4. The prevertebral soft tissue is normal in thickness. The bones are mildly osteopenic. Vertebral bodies are normal in height without evidence of acute fracture. Other than middle atlantoaxial joint osteoarthritis, the craniocervical junction appears normal. There is mild to moderate multilevel degenerative disc disease. The central canal is mildly stenotic at multiple levels. There are varying degrees of mild facet osteoarthritis. There are varying degrees of mild to moderate multilevel uncovertebral joint osteoarthritis Moderate to severe neuroforaminal stenosis is seen at C5-C6 and C6-C7 levels bilaterally. Thoracic spine: A moderate-sized hiatal hernia. There is a 1.7 x 6.4 x 9.0 cm intramuscular fat lesion in the left posterior chest wall with a focus of ossification, which may represent a lipoma or dermoid cyst. Mild dextroscoliosis. Slightly exaggerated thoracic kyphosis. The bones are mildly osteopenic. Vertebral bodies are normal in height without evidence of acute fracture. There is up to moderate multilevel degenerative disc disease. The central canal is patent. There are varying degrees of mild facet osteoarthritis. There are varying degrees of mild neuroforaminal stenosis. Lumbar spine: There is atherosclerotic calcification of the abdominal aorta and its branch vessels. Multiple simple cysts scattered throughout bilateral kidneys with atrophic appearance with multiple scarring of right kidney. Mild anterolisthesis of L5 on S1. Mild levoscoliosis. The mineralization of the bones is normal. Vertebral bodies are normal in height without evidence of acute fracture. There is up to severe multilevel degenerative disc and joint disease. Schmorl's node visualized in the superior endplate of L2. The central canal is moderately stenotic at L4-L5 There are varying degrees of up to moderate facet osteoarthritis [id number] neuroforaminal stenosis in the right L4-L5 neural foramina . Procedure Note Veda Monk MD - 07/04/2024 PROCEDURE: CT CERVICAL SPINE WO CONTRAST, CT LUMBAR SPINE WO CONTRAST,CT THORACIC SPINE WO CONTRAST, DATE/TIME OF EXAM: 07/04/2024 6:23 AM,LOCATION [facility] INDICATION: Trauma ADDITIONAL CLINICAL INFORMATION: Ordering Provider Reason For Exam: Technologist Note: Additional: EXAMINATION: 1. CT of the cervical spine without contrast 2. CT of the thoracic spine without contrast 3. CT of the lumbar spine without contrast TECHNIQUE: CT of the head and cervical spine were performed without contrast according to standard protocol. Reformatted axial, sagittal,and coronal images of the thoracic and lumbar spine were obtained by the technologist from a concurrently performed body CT and sent to the workstation for review. COMPARISON: No prior study is available for comparison at the time ofthis dictation. FINDINGS: Cervical spine: There is atherosclerotic calcification of the carotid bifurcations. Mild retrolisthesis of C3 on C4. The prevertebral soft tissue is normalin thickness. The bones are mildly osteopenic. Vertebral bodies are normalin height without evidence of acute fracture. Other than middleatlantoaxial joint osteoarthritis, the craniocervical junction appears normal. Thereis mild to moderate multilevel degenerative disc disease. The central canalis mildly stenotic at multiple levels. There are varying degrees of mildfacet osteoarthritis. There are varying degrees of mild to moderate multilevel uncovertebral joint osteoarthritis Moderate to severe neuroforaminal stenosis is seen at C5-C6 and C6-C7 levels bilaterally. Thoracic spine: A moderate-sized hiatal hernia. There is a 1.7 x 6.4 x 9.0 cmintramuscular fat lesion in the left posterior chest wall with a focus ofossification, which may represent a lipoma or dermoid cyst. Mild dextroscoliosis. Slightly exaggerated thoracic kyphosis. The bonesare mildly osteopenic. Vertebral bodies are normal in height withoutevidence of acute fracture. There is up to moderate multilevel degenerative disc disease. The central canal is patent. There are varying degrees of mild facet osteoarthritis. There are varying degrees of mild neuroforaminal stenosis. Lumbar spine: There is atherosclerotic calcification of the abdominal aorta and its branch vessels. Multiple simple cysts scattered throughout bilateral kidneys with atrophic appearance with multiple scarring of right kidney. Mild anterolisthesis of L5 on S1. Mild levoscoliosis. The mineralizationof the bones is normal. Vertebral bodies are normal in height withoutevidence of acute fracture. There is up to severe multilevel degenerative discand joint disease. Schmorl's node visualized in the superior endplate of L2. The central canal is moderately stenotic at L4-L5 There are varyingdegrees of up to moderate facet osteoarthritis prvm-[id number] neuroforaminal stenosis in the right L4-L5 neural foramina . IMPRESSION: 1. No evidence of acute fracture in the cervical, thoracic, or lumbar spine. 2. Multiple chronic findings as detailed in the report. > Dictated by Arnoldo Banks MD, (president [place]). I, Veda Monk MD have personally reviewed and interpreted this examination/study. > Interpreting Provider: Veda Monk MD on 07/04/2024 11:32 AM Cinthya Orantes MD CT ORDERABLES * (ABNORMAL) TEG 6 GLOBAL HEMOSTASIS W/ LYSIS (07/04/2024 6:00 AM BANKRUPTCY JUDGE) Citrated Kaolin R (Reaction Time) 2.6(L) 4.6 - 9.1 min 07/04/2024 7:39 AM [facility] Comment:CK R result below no rmal range. Consistent with hypercoagulable clotting factors. Citrated Kaolin LY30 (Lysis) 0.0 0.0 - 2.6 % 07/04/2024 7:39 AM [facility] Citrated Functional Fibrinogen MA (Max Amplitude) 13.1(L) 15.0 - 32.0 mm 07/04/2024 7:39 AM [facility] Comment:CFF MA below normal range. Consistent with decreased fibrinogen contribution to clot strength. Citrated RapidTEG MA (Max Amplitude) 49.6(L) 52.0 - 70.0 mm 07/04/2024 7:39 AM [facility] Comment:INDUSTRIAL CUSTODIAN MA below normal range. Consistent with reduced clot strength from platelets or fibrinogen. Compare with CFF MA. Blood BLOOD SPECIMEN / Unknown Venipuncture / Unknown 07/04/2024 6:00 AM BANKRUPTCY JUDGE 07/04/2024 6:37 AM BANKRUPTCY JUDGE Cinthya Orantes MD LAB - HEMATOLOG Y ORDERABLES Performing Organization Address [facility] de Phone Number [facility] [address] [place] [address], [facility] [phone] * (ABNORMAL) TEG 6S PLATELET MAPPING (07/04/2024 6:00 AM BANKRUPTCY JUDGE) TEGPLM (Max Amplitude) Koalin 52.8(L) 53.0 - 68.0 mm 07/04/2024 7:23 AM [facility] TEGPLM (Max Amplitude) ACTF 3.6 2.0 - 19.0 mm 07/04/2024 7:23 AM [facility] TEGPLM (Max Amplitude) ADP 16.8(L) 45.0 - 69.0 mm 07/04/2024 7:23 AM [facility] Comment:ADP MA below normal range. Inhibition present. TEGPLM (Max Amplitude) AA 8.1(L) 51.0 - 71.0 mm 07/04/2024 7:23 AM [facility] Comment:AA MA below normal r ct. Inhibition present. TEGPLM %Inhibition ADP 73.2(H) 0.0 - 17.0 % 07/04/2024 7:23 AM [facility] TEGPLM %Inhibition AA 90.9(H) 0.0 - 11.0 % 07/04/2024 7:23 AM [facility] TEGPLM %Aggregation ADP 26.8(L) 83.0 - 100.0 % 07/04/2024 7:23 AM [facility] TEGPLM % Aggregation AA 9.1(L) 89.0 - 100.0 % 07/04/2024 7:23 AM [facility] Blood BLOOD SPECIMEN / Unknown Venipuncture / Unknown 07/04/2024 6:00 AM BANKRUPTCY JUDGE 07/04/2024 6:37 AM BANKRUPTCY JUDGE Cinthya Orantes MD LAB - HEMATOLOG Y ORDERABLES Performing Organization Address City/State/[facility] Co de Phone Number [address] [address], [facility] [phone] * ALCOHOL ETHYL BLOOD (07/04/2024 6:00 AM BANKRUPTCY JUDGE) Ethanol (mg/dL) <10 <10 mg/dL 7:03 AM BANKRUPTCY JUDGE [facility] Ethanol Calculated (g/dL) <0.010 <=0.010 g/dL 07/04/2024 7:03 AM [facility] Blood BLOOD SPECIMEN / Unknown Venipuncture / Unknown 07/04/2024 6:00 AM BANKRUPTCY JUDGE 07/04/2024 6:39 AM BANKRUPTCY JUDGE Narrative [facility] - 07/04/2024 7:03 AM BANKRUPTCY JUDGE Ethanol Interp <10: None Detected. Depression of ADVERTISING EDITOR: >100 mg/dl Potentially Critical: >250 mg/dl Potentially Fatal >400 mg/dl Ethanol in the patient's blood will contribute to the osmolar gap. Ethanol's contribution to the osmolar gap can be estimated by dividing the concentration of ethanol in mg/dL by 4.6. This test is for clinical use only and does not equal a JEREMY for legal purposes. Cinthya Orantes MD LAB - CHEMISTRY ORDERABLES Performing Organization Address [facility] Co de Phone Number [address] [address], [facility] [phone] * XR CHEST 1VW PORTABLE (07/04/2024 6:00 AM BANKRUPTCY JUDGE) Anatomical Region Laterality Modality Chest Digital Radiogra phy 07/04/2024 6:08 AM BANKRUPTCY JUDGE Impressions 07/04/2024 9:56 AM BANKRUPTCY JUDGE IMPRESSION: No acute pulmonary disease. Prominence of the aortic arch could indicate aortic dilatation. > Dictated by Pauline Bravo MD (president [place]) I, Elkin Eric MD have personally reviewed and interpreted this examination/study. > Interpreting Provider: Elkin Eric MD on 07/04/2024 9:56 AM Narrative 07/04/2024 9:56 AM BANKRUPTCY JUDGE PROCEDURE: XR CHEST 1VW PORTABLE, DATE/TIME OF EXAM: 07/04/2024 6:08 AM, LOCATION [facility] INDICATION: Trauma ADDITIONAL CLINICAL INFORMATION: Ordering Provider Reason For Exam: Technologist Note: Additional: COMPARISON: None. FINDINGS: There is no pulmonary consolidation, pleural effusion, or pneumothorax. The heart size is normal. Prominence of the aortic arch could indicate aortic dilatation. Procedure Note Elkin Eric MD - 07/04/2024 PROCEDURE: XR CHEST 1VW PORTABLE, DATE/TIME OF EXAM: 07/04/2024 6:08AM, LOCATION [facility] INDICATION: Trauma ADDITIONAL CLINICAL INFORMATION: Ordering Provider Reason For Exam: Technologist Note: Additional: COMPARISON: None. FINDINGS: There is no pulmonary consolidation, pleural effusion, or pneumothorax. The heart size is normal. Prominence of the aortic arch could indicate aortic dilatation. IMPRESSION: No acute pulmonary disease. Prominence of the aortic arch could indicate aortic dilatation. > Dictated by Pauline Bravo MD (president [place]) Elkin Esparza MD have personally reviewed and interpreted this examination/study. > Interpreting Provider: Elkin Eric MD on 07/04/2024 9:56 AM Cinthya Orantes MD DIAGNOSTIC IMAG ING ORDERABLES * XR PELVIS 1 OR 2VW (07/04/2024 6:00 AM BANKRUPTCY JUDGE) Anatomical Region Laterality Modality Pelvis Digital Radiogra phy 07/04/2024 6:34 AM BANKRUPTCY JUDGE Impressions 07/04/2024 9:54 AM BANKRUPTCY JUDGE IMPRESSION: No acute fracture identified. Report dictated by Pauline Bravo MD (president [place]). Elkin Esparza MD have personally reviewed and interpreted this examination/study. > Interpreting Provider: Elkin Eric MD on 07/04/2024 9:54 AM Narrative 07/04/2024 9:54 AM BANKRUPTCY JUDGE PROCEDURE: XR PELVIS 1 OR 2VW, DATE/TIME OF EXAM: 07/04/2024 6:08 AM, LOCATION [facility] INDICATION: Trauma Fracture suspected COMPARISON: None. FINDINGS: No acute fracture is identified. The femoral heads appear well-seated within their respective acetabula. The pubic symphysis is intact. Bone density and texture are normal. The sacroiliac joints are normal. Procedure Note Elkin Eric MD - 07/04/2024 PROCEDURE: XR PELVIS 1 OR 2VW, DATE/TIME OF EXAM: 07/04/2024 6:08 AM, LOCATION [facility] INDICATION: Trauma Fracture suspected COMPARISON: None. FINDINGS: No acute fracture is identified. The femoral heads appear well-seated within their respective acetabula. The pubic symphysis is intact. Bone density and texture are normal. The sacroiliac joints are normal. IMPRESSION: No acute fracture identified. Report dictated by Pauline Bravo MD (president [place]). I, Elkin Eric MD have personally reviewed and interpreted this examination/study. > Interpreting Provider: Elkin Eric MD on 07/04/2024 9:54 AM Cinthya Orantes MD DIAGNOSTIC IMAG ING ORDERABLES from Last 3 Months Care Teams Grain Farmworker Relationship Specialty Start Date End Date Darren Butler DO [address] [place] [address] PCP - General Internal Medicine 07/05/24
--- OUTSIDE RECORDS SUMMARY | 2024-08-08 00:09 | XMS_ITS | Encounter Summary ---
Author Organization [facility] Address [address] [place] [address] Care Team Providers Care Entry Level Machine Operator Name Role Phone Jeremy Carreon MD Primary Care Provider [phone] Encounter Details Date Type Department Care Team (Latest Contact Info) Description 07/19/2000 Outpatient Historical HIS [facility] SINAI Boyd, MD [facility] [address] [facility] [address] [place] [address] Unspecified essential hypertension (Primary Dx) Social History Tobacco Use Types Packs/Day Years Used Date Smoking Tobacco: Never Assessed Sex and Gender Information Value Date Recorded Sex Assigned at Not on file Legal Sex 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
--- OUTSIDE RECORDS SUMMARY | 2024-08-08 00:09 | XMS_ITS | Encounter Summary ---
Author Organization [email or web address] Address [address] [place] [address] Care Team Providers Care Rotary Drier Name Role Phone Jeremy Carreon MD Primary Care Provider [phone] Encounter Details Date Type Department Care Team (Latest Contact Info) Description 03/17/2005 Outpatient Historical HIS [facility] SINAI Boyd, MD [place] [address] [facility] [address] [place] [id number] HYPERTENSION NOS (Primary Dx) Social History Tobacco Use Types Packs/Day Years Used Date Smoking Tobacco: Never Assessed Sex and Gender Information Value Date Recorded Sex Assigned at Not on file Legal Sex Male 3:20 AM DATABASE ADMINISTRATOR Gender Identity Not on file Sexual Orientation [...] URINE ORDERABLES Final Result Performing Organization Address [facility] Phone Number INTERFACE SYSTEM Refer [...] ORDERABLES Final Resu lt Performing Organization Address [facility] Co de Phone Number INTERFACE SYSTEM [...] ORDERABLES Final Resu lt Performing Organization Address [facility] Phone Number INTERFACE SYSTEM Refer to clinic/hospital department * TSH (03/17/2005 9:40 AM CDT) TSH 1.96 0.27 - 4.20 uU/mL INTERFACE SYSTEM 03/17/2005 9:40 AM CDT Aristeo Boyd MD CHEMISTRY ORDERABLES Final Resul t Performing Organization Address [facility] Phone Number INTERFACE SYSTEM Refer to clinic/hospital department * PSA (03/17/2005 9:40 AM CDT) PSA 1.5 0.0 - 4.0 ng/mL INTERFACE SYSTEM Comment:Performed on Donita M odular E170 System 03/17/2005 9:40 AM CDT Aristeo Boyd MD CHEMISTRY ORDERABLES Final Resul t Performing Organization Address [facility] Phone Number INTERFACE SYSTEM Refer [...] Comment: Adult ATP III Classifications: Cholesterol (mg/dL) Triglyceride (mg/dL) Desirable <200 Normal <150 Borderline 200 - 239 Borderline High 150 - 199 High >=240 High 200 - 499 Very High >=500 HDL Cholesterol (mg/dL) LDL (mg/dL) Low (increased risk) <40 Optimal <100 High (reduced risk) >=60 Near or above optimal 100 - 129 Borderline 130 - 159 High 160 - 189 Very High >=190 LDL calculation is not accurate if Triglycerides are greater than 400 mg /dL Pediatric NCEP Classifications: Cholesterol(<20 years),(mg/dL) Triglyceride Desirable <170 Pediatric classification Borderline 170 - 199 not defined. High >=200 HDL (<5 years) LDL (mg/dL) No Reference Range Established Desirable <110 Borderline 110 - 129 High >=130 03/17/2005 9:40 AM CDT Aristeo Boyd MD [...] Primary documented in this encounter Care Teams Rotary Drier Relationship Specialty Start Date End Date Jeremy Carreon MD [address] [place] [phone] PCP - General Internal Medicine 05/17/19 02/14/23 documented as of this encounter
--- OUTSIDE RECORDS SUMMARY | 2024-08-08 00:09 | XMS_ITS | Encounter Summary ---
Author Organization [employer] Address [address] [facility] [address] 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
--- OUTSIDE RECORDS SUMMARY | 2024-08-08 00:10 | XMS_ITS | Clinical Summary ---
Author Organization [facility] [employer] Address [address] [place] [address] Care Team Providers Care Behavior Management Specialist Name Role Phone Darren Butler DO Primary Care Provider [phone] Source Comments [facility] [employer],non-owned Affiliates and Associated Physician Practices is amultiple site organization consisting of ambulatory clinics and hospital sitesin [place], [place], [place] and [place]. This disclosure is being madepursuant to the Care Everywhere program and may not contain all information available regarding this patient. Last updated 18.[facility] [employer] Allergies Active Allergy Reactions Criticality Noted Date [...] Date Resolved Date Subdural hematoma 07/04/2024 07/07/2024 Encounters Date Type Department Care Team Description 07/04/2024 5:49 AM WOODYARD OPERATOR - 07/10/2024 7:16 PM WOODYARD OPERATOR Hospital Encounter [facility] 8S ACUTE [address] [place] [address] Miguel Bhagat MD Mason, Mark A, MD Medintz, MD Lori Borjas, Jarret Durbin MD Trauma Discharge Disposition: [facility]pc Facility 07/04/2024 Travel from Last 3 Months Family History Medical History Relation Name Comments Hypertension Father Relation Name Status Comments Father Social History Tobacco Use Types Packs/Day Years [...] care, and heating? Not very hard 07/05/2024 [facility] of Occupat ional Health - Occupational Stress [...] any time in the past 12 [facility], were you homeless or living in a nursing home (including now)? No 07/05/2024 Sex and Gender Information Value Date Recorded Sex Assigned at Not on file Gender Identity Not on file Sexual Orientation Not on file Last Filed Vital Signs Vital Sign Reading Time Taken Comments Blood Pressure 129/91 07/10/2024 4:09 PM WOODYARD OPERATOR Pulse 81 07/10/2024 4:09 PM WOODYARD OPERATOR Temperature 36.8 C (98.2 F) 07/10/2024 4:09 PM WOODYARD OPERATOR Respiratory Rate 18 07/10/2024 4:09 PM WOODYARD OPERATOR Oxygen Saturation 95% 07/10/2024 4:09 PM WOODYARD OPERATOR Inhaled Oxygen Concentration - - Weight 72.5 kg (159 lb 13.3 oz) 07/10/2024 4:00 AM WOODYARD OPERATOR Height 177.8 cm (5' 10 ) 07/05/2024 8:22 PM WOODYARD OPERATOR Body Mass Index 22.93 07/05/2024 8:22 PM WOODYARD OPERATOR Plan of Treatment Health Maintenance Due Date Last Done Comments DTAP/TDAP/TD VACCINES (1 - Tdap) 1961 PNEUMOCOCCAL VACCINE 50+ (1 of 1 - PCV) 1992 ZOSTER VACCINE (1 of 2) 1992 Respiratory Syncytial Virus (RSV) Vaccine Pt: or over 60 yrs (1 - 1-dose 75+ series) 2017 COVID-19 VACCINE ( - 2023-2 5 season) 2024 INFLUENZA VACCINE (#1) 2024 04/06/2022 DEPRESSION SCREENING 06/06/2024 MEDICARE AWV CALENDAR YEAR 2024 HEPATITIS B VACCINE Aged Out No longe r eligible based on patient's age to complete this topic HIB VACCINE Aged Out No longer eligi ble based on patient's age to complete this topic HPV VACCINE Aged Out No longer eligi ble based on patient's age to complete this topic MENINGOCOCCAL (Group B) VACCINE Aged Out No longer eligible based on patient's age to complete this topic MENINGOCOCCAL VACCINE Aged Out No tyler soumya eligible based on patient's age to complete this topic Procedures Procedure Name Priority Date/Time Associated Diagnosis Comments GLUCOSE - POINT OF CARE Routine 07/10/2024 11:33 AM WOODYARD OPERATOR PHOSPHORUS BLOOD Routine 07/09/2024 3:40 AM WOODYARD OPERATOR MAGNESIUM BLOOD Routine 07/09/2024 3:40 AM WOODYARD OPERATOR BASIC METABOLIC PANEL (CALCIUM TOTAL) Routine 07/09/2024 3:40 AM WOODYARD OPERATOR CBC W AUTO DIFFERENTIAL Routine 07/09/2024 3:39 AM WOODYARD OPERATOR PHOSPHORUS BLOOD Routine 07/08/2024 8:43 PM WOODYARD OPERATOR MAGNESIUM BLOOD Routine 07/08/2024 8:43 PM WOODYARD OPERATOR CBC W AUTO DIFFERENTIAL Routine 07/08/2024 8:43 PM WOODYARD OPERATOR BASIC METABOLIC PANEL (CALCIUM TOTAL) Routine 07/08/2024 8:43 PM WOODYARD OPERATOR PHOSPHORUS BLOOD Routine 07/07/2024 6:22 AM WOODYARD OPERATOR MAGNESIUM BLOOD Routine 07/07/2024 6:22 AM WOODYARD OPERATOR CBC W AUTO DIFFERENTIAL Routine 07/07/2024 6:22 AM WOODYARD OPERATOR BASIC METABOLIC PANEL (CALCIUM TOTAL) Routine 07/07/2024 6:22 AM WOODYARD OPERATOR CBC W AUTO DIFFERENTIAL Routine 07/06/2024 7:01 AM WOODYARD OPERATOR PHOSPHORUS BLOOD Routine 07/06/2024 7:00 AM WOODYARD OPERATOR MAGNESIUM BLOOD Routine 07/06/2024 7:00 AM WOODYARD OPERATOR BASIC METABOLIC PANEL (CALCIUM TOTAL) Routine 07/06/2024 7:00 AM WOODYARD OPERATOR SARS-COV-2 (COVID-19) RAPID STAT 07/05/2024 1:45 PM WOODYARD OPERATOR Fall, initial encounter CARDIAC EKG ORDER 07/05/2024 11: 30 AM WOODYARD OPERATOR PHOSPHORUS BLOOD STAT 07/05/2024 3:59 AM WOODYARD OPERATOR MAGNESIUM BLOOD STAT 07/05/2024 3:59 AM WOODYARD OPERATOR CBC W AUTO DIFFERENTIAL STAT 07/05/2024 3:59 AM WOODYARD OPERATOR BASIC METABOLIC PANEL (CALCIUM TOTAL) STAT 07/05/2024 3:59 AM WOODYARD OPERATOR URINALYSIS W/MICROSCOPIC NO CULTURE STAT 07/05/2024 3:59 AM WOODYARD OPERATOR URINE DRUG SCREEN IMMUNOASSAY STAT 07/05/2024 3:[address] HEAD WO CONTRAST STAT 07/04/2024 1 1:19 AM WOODYARD OPERATOR SDH (subdural hematoma) (HCC) BLOOD TYPE VERIFICATION STAT 07/04/2024 9:40 AM WOODYARD OPERATOR TYPE + SCREEN PANEL STAT 07/04/2024 9 :38 AM WOODYARD OPERATOR EKG 12-LEAD STAT 07/04/2024 6:31 AM WOODYARD OPERATOR Fall, initial encounter PTT [facility] STAT 07/04/2024 6:24 AM WOODYARD OPERATOR PT-INR [facility] STAT 07/04/2024 6:[address] LUMBAR SPINE WO CONTRAST STAT 07/04/2024 6:23 AM WOODYARD OPERATOR Fall, initial encounter CT THORACIC SPINE WO CONTRAST STAT 07/04/2024 6:23 AM WOODYARD OPERATOR Fall, initial encounter CT CHEST ABDOMEN PELVIS W CONT STAT 07/04/2024 6:23 AM WOODYARD OPERATOR Fall, initial encounter CT CERVICAL SPINE WO CONTRAST STAT 07/04/2024 6:23 AM WOODYARD OPERATOR Fall, initial encounter CT HEAD WO CONTRAST STAT 07/04/2024 6 :23 AM WOODYARD OPERATOR Fall, initial encounter TEG 6S PLATELET MAPPING STAT 07/04/2024 6:00 AM WOODYARD OPERATOR TEG 6 GLOBAL HEMOSTASIS W/ LYSIS STAT 07/04/2024 6:00 AM WOODYARD OPERATOR CBC W AUTO DIFFERENTIAL STAT 07/04/2024 6:00 AM WOODYARD OPERATOR BASIC METABOLIC PANEL (CALCIUM TOTAL) STAT 07/04/2024 6:00 AM WOODYARD OPERATOR ALCOHOL ETHYL BLOOD STAT 07/04/2024 6 :00 AM WOODYARD OPERATOR XR PELVIS 1 OR 2VW STAT 07/04/2024 6: 00 AM WOODYARD OPERATOR Fall, initial encounter XR CHEST 1VW PORTABLE STAT 07/04/2024 6:00 AM WOODYARD OPERATOR Fall, initial encounter from Last 3 Months Results * (ABNORMAL) GLUCOSE - POINT OF CARE (07/10/2024 11:33 AM WOODYARD OPERATOR) Glucose WB/POC 131(H) 70 - 99 mg/dL 07/10/2024 3:47 PM WOODYARD OPERATOR [facility] Specimen Type Cap Fingerstick 2024 3:47 PM WOODYARD OPERATOR [facility] Blood BLOOD SPECIMEN / Unknown 07/10/2024 11:33 AM WOODYARD OPERATOR 07/10/2024 3:47 PM WOODYARD OPERATOR Cinthya Orantes MD LAB - POINT OF CARE ORDERABLES [facility] [address] [place] [address], [facility] [phone] * (ABNORMAL) BASIC METABOLIC PANEL (CALCIUM TOTAL) (07/09/2024 3:40 AM WOODYARD OPERATOR) Only the most recent of6 resultswithin the time period is included. BUN 26 7 - 26 mg/dL 07/09/2024 4:55 AM [facility] Creatinine 1.05 0.71 - 1.16 mg/dL 07/09/2024 4:55 AM [facility] Sodium 139 136 - 145 mmol/L 07/09/2024 4:55 AM [facility] Potassium 4.2 3.5 - 4.5 mmol/L 07/09/2024 4:55 AM [facility] Chloride 108(H) 98 - 107 mmol/L 07/09/2024 4:55 AM [facility] CO2 24 22 - 29 mmol/L 07/09/2024 4:55 AM [facility] Glucose 85 70 - 99 mg/dL 07/09/2024 4:55 AM [facility] Calcium 8.1(L) 8.4 - 10.2 mg/dL 07/09/2024 4:55 AM [facility] Anion Gap 7 6 - 16 07/09/2024 4:55 AM [facility] BUN/Creatinine Ratio 25(H) 7 - 23 07/09/2024 4:55 AM [facility] Osmolality Calculated 292 275 - 295 mOsm/kg 07/09/2024 4:55 AM [facility] eGFR by CKD-EPI 71(L) >=90 mL/min/1.7 3 m2 07/09/2024 4:55 AM [facility] Blood BLOOD SPECIMEN / Unknown Lab Venipuncture / Unknown 07/09/2024 3:40 AM WOODYARD OPERATOR 07/09/2024 4:29 AM WOODYARD OPERATOR Cinthya Orantes MD LAB - CHEMISTRY ORDERABLES Performing Organization Address City/[facility]/ZIP Co de Phone Number [address] [address], [facility] [phone] * PHOSPHORUS BLOOD (07/09/2024 3:40 AM WOODYARD OPERATOR) Only the most recent of5 resultswithin the time period is included. Phosphorus 3.5 2.8 - 5.1 mg/dL 07/09/2024 4:55 AM WOODYARD OPERATOR [facility] Blood BLOOD SPECIMEN / Unknown Lab Venipuncture / Unknown 07/09/2024 3:40 AM WOODYARD OPERATOR 07/09/2024 4:29 AM WOODYARD OPERATOR Cinthya Orantes MD LAB - CHEMISTRY ORDERABLES Performing Organization Address [facility] Co de Phone Number [address] [address], [facility] [phone] * MAGNESIUM BLOOD (07/09/2024 3:40 AM WOODYARD OPERATOR) Only the most recent of5 resultswithin the time period is included. Magnesium 2.0 1.6 - 2.6 mg/dL 07/09/2024 4:55 AM WOODYARD OPERATOR [facility] Blood BLOOD SPECIMEN / Unknown Lab Venipuncture / Unknown 07/09/2024 3:40 AM WOODYARD OPERATOR 07/09/2024 4:29 AM WOODYARD OPERATOR Cinthya Orantes MD LAB - CHEMISTRY ORDERABLES Performing Organization Address City/[facility]/ZIP Co de Phone Number [address] [phone], [facility] [phone] * (ABNORMAL) CBC W AUTO DIFFERENTIAL (07/09/2024 3:39 AM WOODYARD OPERATOR) Only the most recent of6 resultswithin the time period is included. WBC 5.8 4.0 - 10.7 x10E9/L 07/09/2024 4:44 AM [facility] RBC Count 4.13(L) 4.30 - 5.80 x10E12/L 07/09/2024 4:44 AM [facility] Hemoglobin 12.2(L) 13.3 - 17.5 g/dL 07/09/2024 4:44 AM [facility] Hematocrit 36.8(L) 38.7 - 51.1 % 07/09/2024 4:44 AM [facility] MCV 89.1 80.0 - 98.0 fL 07/09/2024 4:44 AM [facility] MCH 29.5 26.7 - 33.6 pg 07/09/2024 4:44 AM [facility] MCHC 33.2 31.7 - 36.3 g/dL 07/09/2024 4:44 AM [facility] RDW-CV 14.0 11.3 - 14.8 % 07/09/2024 4:44 AM [facility] Platelet Count 105(L) 150 - 420 x10E9/L 07/09/2024 4:44 AM [facility] MPV 10.2 7.8 - 11.4 fL 07/09/2024 4:44 AM [facility] Neutrophil % 59.2 41.0 - 74.0 % 07/09/2024 4:44 AM [facility] Lymphocyte % 21.8 17.0 - 47.0 % 07/09/2024 4:44 AM [facility] Monocyte % 9.3 3.0 - 11.0 % 07/09/2024 4:44 AM [facility] Eosinophil % 8.8(H) 0.0 - 7.0 % 07/09/2024 4:44 AM [facility] Basophil % 0.7 0.0 - 1.6 % 07/09/2024 4:44 AM [facility] Immature Granulocytes % 0.2 0.0 - 1.0 % 07/09/2024 4:44 AM [facility] Neutrophil Absolute 3.42 1.60 - 7.50 x10E9/L 07/09/2024 4:44 AM [facility] Lymphocyte Absolute 1.26 1.00 - 4.40 x10E9/L 07/09/2024 4:44 AM WOODYARD OPERATOR [facility] Monocyte Absolute 0.54 0.15 - 1.00 x10E9/L 07/09/2024 4:44 AM WOODYARD OPERATOR [facility] Eosinophil Absolute 0.51 0.00 - 0.60 x10E9/L 07/09/2024 4:44 AM WOODYARD OPERATOR [facility] Basophil Absolute 0.04 0.00 - 0.13 x10E9/L 07/09/2024 4:44 AM WOODYARD OPERATOR [facility] Blood BLOOD SPECIMEN / Unknown Lab Venipuncture / Unknown 07/09/2024 3:39 AM WOODYARD OPERATOR 07/09/2024 4:27 AM WOODYARD OPERATOR Cinthya Orantes MD LAB - HEMATOLOG Y ORDERABLES [facility] [address] [place] [address], [facility] [phone] * SARS-COV-2 (COVID-19) RAPID (07/05/2024 1:45 PM WOODYARD OPERATOR) COVID-19 PCR Not detected Not detected 07/05/19 2:26 PM WOODYARD OPERATOR [facility] Microbiology SPECIMEN FROM NASOPHARYNGEAL STRUCTURE / Unknown Collection / Unknown 07/05/2024 1:45 PM WOODYARD OPERATOR 07/05/2024 1:53 PM WOODYARD OPERATOR Narrative [facility] - 07/05/2024 2:26 PM WOODYARD OPERATOR The Cepheid Xpert Xpress SARS-COV-2 has been authorized by [...] Rivera MD LAB - MICROBIOLOGY O RDERABLES [facility] [address] [place] [address], [facility] [phone] * CARDIAC EKG ORDER (07/05/2024 11:30 AM WOODYARD OPERATOR) Narrative 07/05/2024 11:30 AM WOODYARD OPERATOR Ordered by an unspecified provider. Scanned Document CARDIAC SERVICES ORD ERABLES * (ABNORMAL) URINALYSIS W/MICROSCOPIC NO CULTURE (07/05/2024 3:59 AM WOODYARD OPERATOR) Color UA Yellow Straw, Yellow 07/05/2024 4:24 AM [facility] Clarity UA Slt Cloudy(A) Clear 07/05/2024 4:24 AM [facility] Specific [place] UA 1.032(H) 1.005 - 1.030 07/05/2024 4:24 AM [facility] pH UA 5.0 5.0 - 8.0 pH 07/05/2024 4:24 AM [facility] Protein UA Negative Negative 07/05/2024 4:24 AM [facility] Glucose UA Negative Negative 07/05/2024 4:24 AM [facility] Ketone UA Trace(A) Negative 07/05/2024 4:24 AM [facility] Bilirubin UA Negative Negative 07/05/2024 4:24 AM [facility] Blood UA Negative Negative 07/05/2024 4:24 AM [facility] Nitrite UA Negative Negative 07/05/2024 4:24 AM [facility] Leukocyte Esterase Trace(A) Negative 07/05/2024 4:24 AM [facility] Urobilinogen UA Negative Negative mg/dL 07/05/2024 4:24 AM [facility] RBC UA 21-50(A) None Seen, 0-2, 3-5 /HPF 07/05/2024 4:24 AM [facility] WBC UA 11-20(A) None Seen, 0-5 /HPF 07/05/2024 4:24 AM [facility] Bacteria UA 1+(A) None /HPF 07/05/2024 4:24 AM [facility] Squamous Epithelial Cells UA None Seen None Seen, 0-2, 3-5 /HPF 07/05/2024 4:24 AM [facility] Amorphous Crystals Few(A) None /HPF 07/05/2024 4:24 AM [facility] Urine URINE SPECIMEN OBTAINED BY CLEAN CATCH PROCEDURE / Unknown Collection / Unknown 07/05/2024 3:59 AM WOODYARD OPERATOR 07/05/2024 4:03 AM [facility] - 07/05/2024 4:24 AM [facility] Cinthya Orantes MD LAB - URINALYSI S ORDERABLES [facility] [address] [place] [phone], [facility] [phone] * (ABNORMAL) URINE DRUG SCREEN IMMUNOASSAY (07/05/2024 3:59 AM WOODYARD OPERATOR) Pathologist [facility] Amphetamines Screen Urine Negative Negative : < 1000 ng/mL 07/05/2024 4:42 AM [facility] Barbiturates Screen Urine Positive(A) Negative : < 200 ng/mL 07/05/2024 4:42 AM [facility] Comment: Positive urine barbiturate screening results should be confirmed by another generally accepted non-immunological method such as gas chromatography or mass spectrometry. Benzodiazepine Screen Urine Negative Negative : < 200 ng/mL 07/05/2024 4:42 AM [facility] Opiates Urine Negative Negative : < 300 ng/mL 07/05/2024 4:42 AM [facility] Cocaine Metabolites Urine Negative Negative : < 300 ng/mL 07/05/2024 4:42 AM [facility] Phencyclidine Screen Urine Negative Negative : < 25 ng/ml 07/05/2024 4:42 AM [facility] Cannabinoids Screen Urine Negative Negative : <50 ng/mL 07/05/2024 4:42 AM [facility] Methadone Screen Urine Negative Negative : < 300 ng/mL 07/05/2024 4:42 AM WOODYARD OPERATOR [facility] Fentanyl Screen Urine Negative Negative : <1.5 ng/mL 07/05/2024 4:42 AM WOODYARD OPERATOR [facility] Urine URINE / Unknown Collection / Unknown 07/05/2024 3:59 AM WOODYARD OPERATOR 07/05/2024 4:04 AM WOODYARD OPERATOR Narrative [facility] - 07/05/2024 4:42 AM WOODYARD OPERATOR The Urine Toxicology Screening Panel does not screen for Propoxyphene, Meprobamate, Carisoprodol, Trazodone, ascw-trl-tdkkiie medications and/or volatiles (Acetone, Isopropanol, Methanol or Ethylene Glycol). Ethanol, Salicylate, Acetaminophen, Tricyclic Antidepressants and several therapeutic drugs may be individually assayed in serum or plasma specimen. Toxicology testing by the [facility] is an aid to medical diagnosis and treatment of patients. No documented chain of custody was maintained. Results are intended to be used for clinical purposes only. Cinthya Orantes MD LAB - URINE ANDRA TRIPP ORDERABLES [facility] [address] [place] [phone], [facility] [phone] * CT Head Wo Contrast (07/04/2024 11:19 AM WOODYARD OPERATOR) Only the most recent of2 resultswithin the time period is included. Anatomical Region Laterality Modality Head Computed Tomogra phy 07/04/2024 11:3 9 AM WOODYARD OPERATOR Impressions 07/04/2024 11:42 AM WOODYARD OPERATOR IMPRESSION: 1. Unchanged size of the bilateral subdural hematomas along the cerebral convexities measuring up to 5 mm in maximum thickness. Slightly increased attenuation is likely related to contrast staining from the previous examinations. > Interpreting Provider: Veda Monk MD on 07/04/2024 11:42 AM Narrative 07/04/2024 11:42 AM WOODYARD OPERATOR PROCEDURE: CT HEAD WO CONTRAST, DATE/TIME OF EXAM: 07/04/2024 11:19 AM, LOCATION [facility] INDICATION: S06.5XAA: SDH (subdural hematoma) (HCC) ADDITIONAL [...] acute calvarial fracture is identified. Procedure Note Vdea Monk MD - 07/04/2024 PROCEDURE: CT HEAD WO CONTRAST, DATE/TIME OF EXAM: 07/04/2024 11:19 AM, LOCATION [facility] INDICATION: S06.5XAA: SDH (subdural hematoma) (HCC) ADDITIONAL [...] * BLOOD TYPE VERIFICATION (07/04/2024 9:40 AM WOODYARD OPERATOR) ABO Rh O POS 07/04/2024 10:38 AM WOODYARD OPERATOR [facility] Blood Bank BLOOD SPECIMEN / Unknown Venipuncture / Unknown 07/04/2024 9:40 AM WOODYARD OPERATOR 07/04/2024 9:52 AM WOODYARD OPERATOR Cinthya Orantes MD LAB - BLOOD BAN K ORDERABLES [facility] [address] [place] [address], [facility] [phone] * TYPE + SCREEN PANEL (07/04/2024 9:38 AM WOODYARD OPERATOR) Antibody Screen NEG 10:56 AM WOODYARD OPERATOR [facility] ABO Rh O POS 07/04/2024 10:56 AM WOODYARD OPERATOR [facility] Blood Bank BLOOD SPECIMEN / Unknown Venipuncture / Unknown 07/04/2024 9:38 AM WOODYARD OPERATOR 07/04/2024 9:51 AM WOODYARD OPERATOR Cinthya Orantes MD LAB - BLOOD BAN K ORDERABLES Performing Organization Address City/[facility]/ZIP Co de Phone Number [facility] [address] [place] [address], [facility] [phone] * EKG 12-LEAD (07/04/2024 6:31 AM WOODYARD OPERATOR) Ventricular Rate 60 BPM [facility] MUSE Atrial Rate 60 BPM [facility] MUSE P-R Interval 180 ms [facility] QRS Duration ms [address] [facility] MUSE Q-T Interval ms [address] [facility] MUSE QTC Calculation (Bezet) [address] [facility] MUSE Calculated P Geismar 52 degrees [facility] MUSE Calculated R Geismar -26 [address] [facility] MUSE Calculated T Geismar [address] [facility] MUSE Interpretation EKG NORMAL SINUS RHYTHM LOW VOLTAGE QRS SEPTAL INFARCT , AGE UNDETERMINED ABNORMAL ECG NO PREVIOUS ECGS AVAILABLE Confirmed by KATY FLEMING MD ([id number]) on 07/13/2024 10:51:[address] [facility] MUSE 07/04/2024 6:31 AM WOODYARD OPERATOR 07/13/2024 10:51 PM WOODYARD OPERATOR Cinthya Orantes MD ECG ORDERABLES Performing Organization Address [facility]/ZIP Co de Phone Number [facility] MUSE * PTT [facility] (07/04/2024 6:24 AM WOODYARD OPERATOR) APTT 23.3 23.0 - 38.4 Seconds 07/04/2024 7:00 AM [facility] Comment:Suggested therapeuti c range for full dose I.V. unfractionated heparin therapy for venous thromboembolism is 71 to 109 seconds. Blood BLOOD SPECIMEN / Unknown Venipuncture / Unknown 07/04/2024 6:24 AM WOODYARD OPERATOR 07/04/2024 6:35 AM WOODYARD OPERATOR Cinthya Orantes MD LAB - COAGULATI ON ORDERABLES Performing Organization Address [facility] Co de Phone Number [address] [address], [facility] [phone] * PT-INR [facility] (07/04/2024 6:24 AM WOODYARD OPERATOR) PT 14.2 12.1 - 14.8 Seconds 07/04/2024 7:00 AM [facility] INR 1.1 See Comment 07/04/2024 7:00 AM [facility] Comment:The suggested therap eutic range for standard coumadin (warfarin) therapy is an INR of 2.0-3.0. For high-risk patients (Mechanical Mitral Valve Prosthesis, etc.), the suggested prophylactic therapeutic range is an INR of 2.5-3.5. Blood BLOOD SPECIMEN / Unknown Venipuncture / Unknown 07/04/2024 6:24 AM WOODYARD OPERATOR 07/04/2024 6:35 AM WOODYARD OPERATOR Cinthya Orantes MD LAB - COAGULATI ON ORDERABLES [facility] [address] [place] [address], [facility] [phone] * CT CHEST ABDOMEN PELVIS W CONT - Abdomen-pelvis trauma, blunt or penetrating (07/04/2024 6:23 AM WOODYARD OPERATOR) Anatomical Region Laterality Modality Chest, Abdomen, Pelvis Computed Tomography 07/04/2024 6:27 AM WOODYARD OPERATOR Impressions 07/04/2024 9:01 AM WOODYARD OPERATOR Impression: 1.No acute visceral, vascular, or osseus injury identified in the chest, abdomen, or pelvis. 2.Ectatic ascending aorta. 3.Moderate hiatal hernia. 4.Soft tissue contusion of right gluteal region. 5.Enlarged prostate with mild bladder wall thickening with slightly trabeculated appearance and a few diverticula overall favored to be related to underlying chronic bladder outlet obstruction. > Dictated by Ant De Jesus MD (professor of radiology). I, Puneet Perez have personally reviewed and interpreted this examination/study. > Interpreting Provider: Puneet Perez on 07/04/2024 9:01 AM Narrative 07/04/2024 9:01 AM WOODYARD OPERATOR PROCEDURE: CT CHEST ABDOMEN PELVIS W CONT, DATE/TIME OF EXAM: 07/04/2024 6:23 AM, LOCATION [facility] INDICATION: Trauma ADDITIONAL CLINICAL INFORMATION: Ordering Provider [...] CONT, DATE/TIME OF EXAM:07/04/2024 6:23 AM, LOCATION [facility] INDICATION: Trauma ADDITIONAL CLINICAL INFORMATION: Ordering Provider [...] > Dictated by Ant De Jesus MD (professor of radiology). Puneet Esparza have personally reviewed and interpreted this examination/study. > Interpreting Provider: Puneet Perez on 07/04/2024 9:01 AM Cinthya Orantes MD CT ORDERABLES * CT LUMBAR SPINE WO CONTRAST - T/L-spine trauma, Spine fracture (07/04/2024 6:23 AM WOODYARD OPERATOR) Anatomical Region Laterality Modality Spine Computed Tomogra phy 07/04/2024 8:00 AM WOODYARD OPERATOR Impressions 07/04/2024 11:32 AM WOODYARD OPERATOR IMPRESSION: 1. No evidence of acute fracture in the cervical, thoracic, or lumbar spine. 2. Multiple chronic findings as detailed in the report. > Dictated by Arnoldo Banks MD, (professor of radiology). Veda Esparza MD have personally reviewed and interpreted this examination/study. > Interpreting Provider: Veda Monk MD on 07/04/2024 11:32 AM Narrative 07/04/2024 11:32 AM WOODYARD OPERATOR PROCEDURE: CT CERVICAL SPINE WO CONTRAST, CT LUMBAR SPINE WO CONTRAST, CT THORACIC SPINE WO CONTRAST, DATE/TIME OF EXAM: 07/04/2024 6:23 AM, LOCATION [facility] INDICATION: Trauma ADDITIONAL CLINICAL INFORMATION: Ordering Provider [...] degrees of up to moderate facet osteoarthritis [id number] neuroforaminal stenosis in the right L4-L5 neural foramina . Procedure Note Veda Monk MD - 07/04/2024 PROCEDURE: CT CERVICAL SPINE WO CONTRAST, CT LUMBAR SPINE WO CONTRAST,CT THORACIC SPINE WO CONTRAST, DATE/TIME OF EXAM: 07/04/2024 6:23 AM,LOCATION [facility] INDICATION: Trauma ADDITIONAL CLINICAL INFORMATION: Ordering Provider [...] varyingdegrees of up to moderate facet osteoarthritis scam-wp-wuhddrrk neuroforaminal stenosis in the right L4-L5 neural foramina . IMPRESSION: 1. No evidence of acute fracture in the cervical, thoracic, or lumbar spine. 2. Multiple chronic findings as detailed in the report. > Dictated by Arnoldo Banks MD, (professor of radiology). I, Veda Monk MD have personally reviewed and interpreted this examination/study. > Interpreting Provider: Veda Monk MD on 07/04/2024 11:32 AM Cinthya Orantes MD CT ORDERABLES * CT THORACIC SPINE WO CONTRAST - T/L-spine trauma, spine fracture (07/04/2024 6:23 AM WOODYARD OPERATOR) Anatomical Region Laterality Modality Spine Computed Tomogra phy 07/04/2024 8:00 AM WOODYARD OPERATOR Impressions 07/04/2024 11:32 AM WOODYARD OPERATOR IMPRESSION: 1. No evidence of acute fracture in the cervical, thoracic, or lumbar spine. 2. Multiple chronic findings as detailed in the report. > Dictated by Arnoldo Banks MD, (professor of radiology). I, Veda Monk MD have personally reviewed and interpreted this examination/study. > Interpreting Provider: Veda Monk MD on 07/04/2024 11:32 AM Narrative 07/04/2024 11:32 AM WOODYARD OPERATOR PROCEDURE: CT CERVICAL SPINE WO CONTRAST, CT LUMBAR SPINE WO CONTRAST, CT THORACIC SPINE WO CONTRAST, DATE/TIME OF EXAM: 07/04/2024 6:23 AM, LOCATION [facility] INDICATION: Trauma ADDITIONAL CLINICAL INFORMATION: Ordering Provider [...] degrees of up to moderate facet osteoarthritis ttcj-tl-ctgbrmaw neuroforaminal stenosis in the right L4-L5 neural foramina . 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 IMPRESSION: 1. No evidence of acute fracture in the cervical, thoracic, or lumbar spine. 2. Multiple chronic findings as detailed in the report. > Dictated by Arnoldo Banks MD, (professor of radiology). I, Veda Monk MD have personally reviewed and interpreted this examination/study. > Interpreting Provider: Veda Monk MD on 07/04/2024 11:32 AM Cinthya Orantes MD CT ORDERABLES * CT CERVICAL SPINE WO CONTRAST - C-Spine Trauma, Spine fracture (07/04/2024 6:23 AM WOODYARD OPERATOR) Anatomical Region Laterality Modality Spine Computed Tomogra phy 07/04/2024 8:00 AM WOODYARD OPERATOR Impressions 07/04/2024 11:32 AM WOODYARD OPERATOR IMPRESSION: 1. No evidence of acute fracture in the cervical, thoracic, or lumbar spine. 2. Multiple chronic findings as detailed in the report. > Dictated by Arnoldo Banks MD, (professor of radiology). I, Veda Monk MD have personally reviewed and interpreted this examination/study. 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 IMPRESSION: 1. No evidence of acute fracture in the cervical, thoracic, or lumbar spine. 2. Multiple chronic findings as detailed in the report. > Dictated by Arnoldo Banks MD, (professor of radiology). I, Veda Monk MD have personally reviewed and interpreted this examination/study. > Interpreting Provider: Veda Monk MD on 07/04/2024 11:32 AM Cinthya Orantes MD CT ORDERABLES * (ABNORMAL) TEG 6 GLOBAL HEMOSTASIS W/ LYSIS (07/04/2024 6:00 AM WOODYARD OPERATOR) Citrated Kaolin R (Reaction Time) 2.6(L) 4.6 - 9.1 min 07/04/2024 7:39 AM WOODYARD OPERATOR [facility] Comment:CK R result below no rmal range. Consistent with hypercoagulable clotting factors. Citrated Kaolin LY30 (Lysis) 0.0 0.0 - 2.6 % 07/04/2024 7:39 AM WOODYARD OPERATOR [facility] Citrated Functional Fibrinogen MA (Max Amplitude) 13.1(L) 15.0 - 32.0 mm 07/04/2024 7:39 AM [facility] Comment:CFF MA below normal range. Consistent with decreased fibrinogen contribution to clot strength. Citrated RapidTEG MA (Max Amplitude) 49.6(L) 52.0 - 70.0 mm 07/04/2024 7:39 AM [facility] Comment:PLANISHING PRESS OPERATOR MA below normal range. Consistent with reduced clot strength from platelets or fibrinogen. Compare with CFF MA. Blood BLOOD SPECIMEN / Unknown Venipuncture / Unknown 07/04/2024 6:00 AM WOODYARD OPERATOR 07/04/2024 6:37 AM [facility] Cinthya Orantes MD LAB - HEMATOLOG Y ORDERABLES [facility] [address] [place] [address], [facility] [phone] * (ABNORMAL) TEG 6S PLATELET MAPPING (07/04/2024 6:00 AM [facility]) TEGPLM (Max Amplitude) Koalin 52.8(L) 53.0 - 68.0 mm 07/04/2024 7:23 AM [facility] TEGPLM (Max Amplitude) ACTF 3.6 2.0 - 19.0 mm 07/04/2024 7:23 AM [facility] TEGPLM (Max Amplitude) ADP 16.8(L) 45.0 - 69.0 mm 07/04/2024 7:23 AM [facility] Comment:ADP MA below normal range. Inhibition present. TEGPLM (Max Amplitude) AA 8.1(L) 51.0 - 71.0 mm 07/04/2024 7:23 AM [facility] Comment:AA MA below normal r ct. Inhibition present. TEGPLM %Inhibition ADP 73.2(H) 0.0 - 17.0 % 07/04/2024 7:23 AM [facility] TEGPLM %Inhibition AA 90.9(H) 0.0 - 11.0 % 07/04/2024 7:23 AM [facility] TEGPLM %Aggregation ADP 26.8(L) 83.0 - 100.0 % 07/04/2024 7:23 AM [facility] TEGPLM % Aggregation AA 9.1(L) 89.0 - 100.0 % 07/04/2024 7:23 AM [facility] Blood BLOOD SPECIMEN / Unknown Venipuncture / Unknown 07/04/2024 6:00 AM WOODYARD OPERATOR 07/04/2024 6:37 AM WOODYARD OPERATOR Cinthya Orantes MD LAB - HEMATOLOG Y ORDERABLES Performing Organization Address City/[facility]/ZIP Co de Phone Number [address] [address], [facility] [phone] * ALCOHOL ETHYL BLOOD (07/04/2024 6:00 AM WOODYARD OPERATOR) Ethanol (mg/dL) <10 <10 mg/dL 7:03 AM [facility] Ethanol Calculated (g/dL) <0.010 <=0.010 g/dL 07/04/2024 7:03 AM [facility] Blood BLOOD SPECIMEN / Unknown Venipuncture / Unknown 07/04/2024 6:00 AM WOODYARD OPERATOR 07/04/2024 6:39 AM WOODYARD OPERATOR Narrative [facility] - 07/04/2024 7:03 AM [facility] Ethanol Interp <10: None Detected. Depression of ACID DIPPER: >100 mg/dl Potentially Critical: >250 mg/dl Potentially [...] LAB - CHEMISTRY ORDERABLES Performing Organization Address [facility]/ZIP Co de Phone Number [address] [address], [place] [phone] * XR CHEST 1VW PORTABLE (07/04/2024 6:00 AM WOODYARD OPERATOR) Anatomical Region Laterality Modality Chest Digital Radiogra phy 07/04/2024 6:08 AM WOODYARD OPERATOR Impressions 07/04/2024 9:56 AM WOODYARD OPERATOR IMPRESSION: No acute pulmonary disease. Prominence of the aortic arch could indicate aortic dilatation. > Dictated by Pauline Bravo MD (professor of radiology) IElkin MD have personally reviewed and interpreted this examination/study. > Interpreting Provider: Elkin Eric MD on 07/04/2024 9:56 AM Narrative 07/04/2024 9:56 AM WOODYARD OPERATOR PROCEDURE: XR CHEST 1VW PORTABLE, DATE/TIME OF EXAM: 07/04/2024 6:08 AM, LOCATION [facility] INDICATION: Trauma ADDITIONAL CLINICAL INFORMATION: Ordering Provider Reason For Exam: Technologist Note: Additional: COMPARISON: None. FINDINGS: There is no pulmonary consolidation, pleural effusion, or pneumothorax. The heart size is normal. Prominence of the aortic arch could indicate aortic dilatation. Procedure Note Elkin Eric MD - 07/04/2024 PROCEDURE: XR CHEST 1VW PORTABLE, DATE/TIME OF EXAM: 07/04/2024 6:08AM, LOCATION [facility] INDICATION: Trauma ADDITIONAL CLINICAL INFORMATION: Ordering Provider Reason For Exam: Technologist Note: Additional: COMPARISON: None. FINDINGS: There is no pulmonary consolidation, pleural effusion, or pneumothorax. The heart size is normal. Prominence of the aortic arch could indicate aortic dilatation. IMPRESSION: No acute pulmonary disease. Prominence of the aortic arch could indicate aortic dilatation. > Dictated by Pauline Bravo MD (professor of radiology) Elkin Esparza MD have personally reviewed and interpreted this examination/study. > Interpreting Provider: Elkin Eric MD on 07/04/2024 9:56 AM Cinthya Orantes MD DIAGNOSTIC IMAG ING ORDERABLES * XR PELVIS 1 OR 2VW (07/04/2024 6:00 AM WOODYARD OPERATOR) Anatomical Region Laterality Modality Pelvis Digital Radiogra phy 07/04/2024 6:34 AM WOODYARD OPERATOR Impressions 07/04/2024 9:54 AM WOODYARD OPERATOR IMPRESSION: No acute fracture identified. Report dictated by Pauline Bravo MD (professor of radiology). I, Elkin Hernesto, MD have personally reviewed and interpreted this examination/study. > Interpreting Provider: Elkin Eric MD on 07/04/2024 9:54 AM Narrative 07/04/2024 9:54 AM WOODYARD OPERATOR PROCEDURE: XR PELVIS 1 OR 2VW, DATE/TIME OF EXAM: 07/04/2024 6:08 AM, LOCATION [facility] INDICATION: Trauma Fracture suspected COMPARISON: None. FINDINGS: No acute fracture is identified. The femoral heads appear well-seated within their respective acetabula. The pubic symphysis is intact. Bone density and texture are normal. The sacroiliac joints are normal. Procedure Note Elkin Eric MD - 07/04/2024 PROCEDURE: XR PELVIS 1 OR 2VW, DATE/TIME OF EXAM: 07/04/2024 6:08 AM, LOCATION [facility] INDICATION: Trauma Fracture suspected COMPARISON: None. FINDINGS: No acute fracture is identified. The femoral heads appear well-seated within their respective acetabula. The pubic symphysis is intact. Bone density and texture are normal. The sacroiliac joints are normal. IMPRESSION: No acute fracture identified. Report dictated by Pauline Bravo MD (professor of radiology). Elkin Esparza MD have personally reviewed and interpreted this examination/study. > Interpreting Provider: Elkin Eric MD on 07/04/2024 9:54 AM Cinthya Orantes MD DIAGNOSTIC IMAG ING ORDERABLES from Last 3 Months Care Teams Behavior Management Specialist Relationship Specialty Start Date End Date Darren Butler DO [address] [place] [address] PCP - General Internal Medicine 07/05/24
--- OUTSIDE RECORDS SUMMARY | 2024-08-08 00:10 | XMS_ITS | Continuity of Care Document ---
Author Organization [facility] Address [address] [place] [address] Phone Care Team Providers Care Physical Medicine Physician Name Role Phone Holly Nicolas MD Unavailable Unavailable Allergies, Adverse Reactions, Alerts Substance Reaction Status Criticality amlodipine leg swelling(moderate) Active No In formation hydrochlorothiazide red & itchy Active No Infor mation Medications Medication Instructions Dosage Effective Dates (start - stop) Status Comments LOSARTAN POTASSIUM 50 MG TAB TAKE ONE-HALF TABLET BY MOUTH EVERY MORNING AND TAKE ONE-HALF TABLET BY MOUTH EVERY EVENING - Active ATENOLOL 50 MG TABLET TAKE ONE-HALF TABLET BY MOUTH EVERY MORNING AND TAKE ONE-HALF TABLET BY MOUTH EVERY EVENING - Active nystatin 100,000 unit/gram topical cream apply by topical route 2 times every day to groin folds - Active TAMSULOSIN HCL 0.4 MG CAPSULE TAKE ONE CAPSULE BY MOUTH ONCE DAILY 30 MINUTES FOLLOWING THE SAME MEAL EACH DAY 0.4 MG - Active Viagra 100 mg tablet Take one tablet 30 minutes prior to intercourse - Active triamcinolone acetonide 0.1 % topical ointment apply by topical route 2 times every day a thin layer to the affected area(s) 0.00 - Active Multiple Vitamins tablet take 1 tablet by oral route every day with food - Active Elidel 1 % topical cream apply by topical route 2 times every day a thin layer to the affected area(s) ; rub in gently and completely to trunk and groin - Active Co Q-10 100 mg-5 unit capsule take 1 tab am - Active Vitamin B-12 1,000 mcg tablet take 1 tablet by oral route every day 1 tablet - Active losartan 50 mg tablet TAKE ONE-HALF TABLET BY MOUTH EVERY MORNING AND TAKE ONE-HALF TABLET BY MOUTH EVERY EVENING - No Longer Active Advance Directives Directive Yes / No Effective Date File Name No Information Encounters Encounter Description Practice Location Reason(s) For Visit Diagnoses Date Provider Providers [facility] [address], [place], [place], [id number] , tel: [phone] [facility] No Information 7 Maria Isabel Barrera. [address] [place] [address], [place], [place], [id number], [place]. [phone] [facility], [address], [place], [place], [address] , tel: [phone] [facility] No Information 0 Maria Isabel Barrera. [address] [place] [address], [place], [place], [id number], . [phone] [facility], [address], [place], [place], [address] , [place] tel:[phone] [facility] Mixed hyperlipidemia Jul- 7 Vonjv Emy. [address] [place] [address], [place], [place], [address], [place]. tel:[phone] Referring Provider: Holly Baires, [address] [place] [address], [place], [address] . tel:[phone] [facility], [address], [place], [place], [address] , [place] tel:[phone] [facility] Essential hypertensionMixed hyperlipidemiaThrom bocytopeniaPolycyth emia veraObstructive sleep apnea syndromeBenign prostatic hyperplasia with lower urinary tract symptoms, unspecified morphologyMale erectile dysfunction, unspecifiedDermatit is 7 Kj Sarabia. [address] [place] [address], [id number], [place]. tel:[phone] Referring Provider: Holly Baires, [address] [place] [address], [place], [address] . tel:[phone] [facility], [address], [place], [place], [address] , tel: [phone] [facility] No Information Mar-2 1-201 6 Brooklynn Bain. [address] [place] [address], [place], [place], [address]. tel:[phone] [facility], [address], [place], [place], [address] , [place] tel: [phone] [facility] No Information 5 6 Maria Isabel Barrera. [address] [place] [address], [place], [place], [address], [place]. [phone] Referring Provider: Holly Baires, [address] [place] [address], [place], [address] . tel:[phone] [facility], [address], [place], [place], [address] , [place] tel: [phone] [facility] FolliculitisEssenti al hypertensionMixed hyperlipidemiaObstr uctive sleep apnea syndromePolycythemi a veraThrombocytopeni aBenign prostatic hyperplasia with lower urinary tract symptoms, unspecified morphologyMale erectile dysfunction, unspecifiedPersonal history of colonic polyps Sep-0 8 6 Kj Sarabia. [address] [place] [address], [id number], [place]. [phone] Referring Provider: Holly Baires, [address] [place] [address], [place], [address] . tel:[phone] [facility], [address], [place], [place], [address] , tel:[phone] [facility] No Information Ahsan- 0-201 6 Neetu Erazo. [address] [place] [id number], [place]. tel:[phone] [facility], [address], [place], [place], [address] , tel: [phone] [facility] Encounter for general adult medical examination without abnormal findingsEssential (primary) hypertensionMixed hyperlipidemiaPolyc ythemia veraObstructive sleep apnea (adult) (pediatric)Benign prostatic hyperplasia with lower urinary tract symptoms, unspecified morphologyMale erectile dysfunction, unspecifiedMononeur opathy, unspecifiedPersonal history of colonic polyps Sep- 6 Maria Isabel Barrera. [address] [place] [address], [place], [place], [address], . [phone] Referring Provider: Holly Baires, [address] [place] [address], [place], [address] . tel:[phone] [facility], [address], [place], [place], [address] , tel: [phone] [facility] Benign prostatic hyperplasia with lower urinary tract symptoms, unspecified morphology Sep- 6 Brooklynn Bain. [address] [place] [address], [place], [place], [address]. tel:[phone] [facility], [address], [place], [place], [address] , tel: [phone] [facility] Candidal dermatitis 5 Maria Isabel Barrera. [address] [place] [address], [place] [address], [place], [place], [address], . tel:[phone] [facility], [address], [place], [place], [address] , [place] tel:[phone] [facility] Essential (primary) hypertensionMixed hyperlipidemiaObstr uctive sleep apnea (adult) (pediatric)Polycyth emia veraPersonal history of colonic polypsMononeuropath y, unspecifiedMale erectile dysfunction, unspecifiedEncounte r for immunizationCandida l dermatitis 5 Kj Sarabia. [address] [place] [address], [id number], . tel:[phone] Referring Provider: Holly Baires, [address] [place] [address] [address], [place], [address] . tel:[phone] [facility], [address], [place], [place], [address] , [place] tel: [phone] [facility] Essential (primary) hypertensionPersona l history of colonic polypsMale erectile dysfunction, unspecifiedMixed hyperlipidemiaMonon europathy, unspecifiedObstruct kirsten sleep apnea (adult) (pediatric)Polycyth emia vera 5 [place] Johny Sarabia. [address] [place] [address], [address], [place], [place], [address], [place]. tel:[phone] [facility], [address], [place], [place], [address] , [place] tel: [phone] [facility] Mixed hyperlipidemiaPolyc ythemiaHigh blood pressureObstructive sleep apneaAllergic dermatitis 5 Maria Isabel Barrera. [address] [place] [address], [facility] [address], [place], [place], [address], [place]. tel:[phone] Referring Provider: Holly Baires, [address] [place] [address], [place], [address] . tel:[phone] [facility], [address], [place], [place], [address] , [place] tel: [phone] [facility] No Information 5 Maria Isabel Barrera. [address] [place] [address], [place], [place], [address], [place]. tel:[phone] [facility], [address], [place], [place], [address] , [place] tel:[phone] [facility] No Information 4 Maria Isabel Barrera. [address] [place] [address], [place], [address], [place]. tel:[phone] [facility], [address], [place], [place], [address] , [place] tel:[phone] [facility] No Information 4 Maria Isabel Barrera. [address] [place] [address], [address], [place], [place], [address], [place]. [phone] [facility], [address], [place], [place], [address] , [place] tel:[phone] [facility] History of colonic polypsHigh blood pressureObstructive sleep apneaNeuropathyErec tile dysfunction 4 Maria Isabel Barrera. [address] [place] [address], [address], [place], [place], [address], [place]. [phone] Referring Provider: Holly Baires, [address] [place] [address] [address], [place], [address] . tel:[phone] Family History Family Member Type Diagnosis Age At Onset Mother Problem (finding) Hearing impairment Mother Problem (finding) chronic obstructive anna g disease Mother Problem (finding) Cancer, basal cell Mother Problem (finding) hypertension Father Problem (finding) hypertension Mother Problem (finding) osteoporosis Father Problem (finding) renal cell carcinoma 65 Immunizations Vaccine Date Status Comments influenza, injectable, quadrivalent, (3 years or older) administered Source: New Immuniza tion Record Influenza, seasonal, injecta ble (3 yrs or older) administered Source: Other Provid er Tdap administered Source: New Imm unization Record Pneumococcal conjugate PCV 13 administere d Note: Cass ; Source: Other Provider Influenza, seasonal, injecta ble (3 yrs or older) administered Source: New Immuniza tion Record Influenza, seasonal, injecta ble (3 yrs or older) administered Source: Other Provid er Zoster administered Source: Other P rovider Pneumococcal polysaccharide PPV23 administered Source: Other Provid er Pneumococcal polysaccharide PPV23 administered Note: Invalid docume nted admin date was . ; Source: Other Provider Pneumococcal polysaccharide PPV23 administered Source: Other Provid er Payers Payer name Insurance type Covered alliance party ID Authoriza tion(s) [employer] [id number] [employer] [id number] [employer] [id number] [employer] [id number] Social History Type Description Quantity Date Captured Comments Sex Male Smoking Status No Information Chief Complaint And Reason For Visit No Information Reason For Referral Reason For Referral No Information Plan Of Treatment Date Type Action Status Patient Education Low Sodium Diet (2,000 Milligram): Car completed Patient Education Thrombocytopenia: Care Instructions completed History Of Present Illness Encounter Date Complaint History Of Prese nt Illness No Information Functional Status Date Functional Assessmen t No Information Instructions Date Instruction Additional Infor mation No Information Assessments Type Assessment Date No Information Patient Care Teams Name Effective Dates (start - stop) Status Members No Information
--- OUTSIDE RECORDS SUMMARY | 2024-08-08 00:10 | XMS_ITS | Clinical Summary ---
Author Organization [facility] Selina beaulieu Haileymihaelastephani Address [address] [place] [address] Care Team Providers Care Data Input Clerk Name Role Phone Unavailable Primary Care Provider [...] on file Legal Sex Male 3:20 AM EVS ATTENDANT Gender Identity Not on file Sexual Orientation Not on file Last Filed Vital Signs Vital Sign Reading Time Taken Comments Blood Pressure 118/68 02/15/2023 9:53 AM CDT Pulse 51 02/15/2023 9:53 AM CDT Temperature 36.4 C (97.5 F) 02/15/2023 9:53 AM CDT Respiratory Rate 14 02/15/2023 9:53 AM CDT Oxygen Saturation 98% 02/15/2023 9:53 AM CDT Inhaled Oxygen Concentration - - Weight 81 kg (178 lb 9.6 oz) 02/15/2023 9:53 AM CDT Height 182.9 cm (6') 05/12/2021 2:31 PM EVS ATTENDANT Body Mass Index 24.22 05/12/2021 2:31 PM EVS ATTENDANT Plan of Treatment Health Maintenance Due Date Last Done Comments DTAP/TDAP/TD VACCINES (1 - Tdap) 1961 PNEUMOCOCCAL VACCINE 50+ YEA RS (1 of 1 - PCV) 1992 02/05/2012 ZOSTER VACCINE (1 of 2) 1992 RSV VACCINE (60+ or ) (1 - 1-dose 75+ series) 2017 INFLUENZA VACCINE (#1) 2024 04/06/2022, 2021 Insurance [employer] [facility]
--- OUTSIDE RECORDS SUMMARY | 2024-08-08 00:10 | XMS_ITS | Patient Health Summary ---
Author Organization [facility] Address [address] [place] [address] Care Team Providers Care Research Associate Molecular Biology Name Role Phone Darren Butler DO Primary Care Provider [phone] Note from [facility],non-owned Affiliates and Associated Physician Practices is amultiple site organization consisting of ambulatory clinics and hospital sitesin [place], [place], [place] and [place]. This disclosure is being madepursuant to the Care Everywhere program and may not contain all information available regarding this patient. Last updated 18.[facility] Allergies * Amlodipine Base(Itching) * Hydrochlorothiazide(Itching) * Valsartan(Itching) Medications * Be aware that medications may not be up to date on this document. Alwaysverify current medications with the patient. * acetaminophen (Tylenol) 500 MG tablet(Started 07/05/2024) Take 2 (two) tablets by mouth every 8 hours Maximum allowable Acetaminophen amount = 4 Grams (4000 mg) / 24 hours. * gabapentin (Neurontin) 100 MG capsule(Started 07/05/2024) Take 1 (one) capsule by mouth 2 times daily * polyethylene glycol 3350 (Miralax) 17 g packet(Started 07/06/2024) Take 17 (seventeen) g by mouth once daily * finasteride (Proscar) 5 MG tablet(Started 07/06/2024) Take 1 (one) tablet by mouth once daily * tamsulosin (Flomax) 0.4 MG capsule(Started 07/05/2024) Take 1 (one) capsule by mouth at bedtime At the same time every day after a meal. * acetaminophen (Tylenol) 500 MG tablet(Started 07/10/2024) Take 2 (two) tablets by mouth every 6 hours as needed Maximum allowable Acetaminophen amount = 4 Grams (4000 mg) / 24 hours. 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 Not very hard 07/05/2024 [facility] [place] [facility] Occup[facility] - Occupational Stress [...] any time in the past 12 [facility], were you homeless or living in a assisted (including now)? No 07/05/2024 Sex and Gender Information Value Date Recorded Sex Assigned at Not on file Gender Identity Not on file Sexual Orientation Not on file Last Filed Vital Signs Vital Sign Reading Time Taken Comments Blood Pressure 129/91 07/10/2024 4:09 PM SENIOR SSIS DEVELOPER Pulse 81 07/10/2024 4:09 PM SENIOR SSIS DEVELOPER Temperature 36.8 C (98.2 F) 07/10/2024 4:09 PM SENIOR SSIS DEVELOPER Respiratory Rate 18 07/10/2024 4:09 PM SENIOR SSIS DEVELOPER Oxygen Saturation 95% 07/10/2024 4:09 PM SENIOR SSIS DEVELOPER Inhaled Oxygen Concentration - - Weight 72.5 kg (159 lb 13.3 oz) 07/10/2024 4:00 AM SENIOR SSIS DEVELOPER Height 177.8 cm (5' 10 ) 07/05/2024 8:22 PM SENIOR SSIS DEVELOPER Body Mass Index 22.93 07/05/2024 8:22 PM SENIOR SSIS DEVELOPER Procedures * GLUCOSE - POINT OF CARE(Performed 07/10/2024) * PHOSPHORUS BLOOD(Performed 07/09/2024) * MAGNESIUM BLOOD(Performed 07/09/2024) * BASIC METABOLIC PANEL (CALCIUM TOTAL)(Performed 07/09/2024) * CBC W AUTO DIFFERENTIAL(Performed 07/09/2024) * PHOSPHORUS BLOOD(Performed 07/08/2024) * MAGNESIUM BLOOD(Performed 07/08/2024) * CBC W AUTO DIFFERENTIAL(Performed 07/08/2024) * BASIC METABOLIC PANEL (CALCIUM TOTAL)(Performed 07/08/2024) * PHOSPHORUS BLOOD(Performed 07/07/2024) * MAGNESIUM BLOOD(Performed 07/07/2024) * CBC W AUTO DIFFERENTIAL(Performed 07/07/2024) * BASIC METABOLIC PANEL (CALCIUM TOTAL)(Performed 07/07/2024) * CBC W AUTO DIFFERENTIAL(Performed 07/06/2024) * PHOSPHORUS BLOOD(Performed 07/06/2024) * MAGNESIUM BLOOD(Performed 07/06/2024) * BASIC METABOLIC PANEL (CALCIUM TOTAL)(Performed 07/06/2024) * SARS-COV-2 (COVID-19) RAPID(Performed 07/05/2024) Performed for Fall, initial encounter * CARDIAC EKG ORDER(Performed 07/05/2024) * PHOSPHORUS BLOOD(Performed 07/05/2024) * MAGNESIUM BLOOD(Performed 07/05/2024) * CBC W AUTO DIFFERENTIAL(Performed 07/05/2024) * BASIC METABOLIC PANEL (CALCIUM TOTAL)(Performed 07/05/2024) * URINALYSIS W/MICROSCOPIC NO CULTURE(Performed 07/05/2024) * URINE DRUG SCREEN IMMUNOASSAY(Performed 07/05/2024) * CT HEAD WO CONTRAST(Performed 07/04/2024) Performed for SDH (subdural hematoma) (HCC) * BLOOD TYPE VERIFICATION(Performed 07/04/2024) * TYPE + SCREEN PANEL(Performed 07/04/2024) * EKG 12-LEAD(Performed 07/04/2024) Performed for Fall, initial encounter * PTT [facility](Performed 07/04/2024) * PT-INR [facility](Performed 07/04/2024) * CT LUMBAR SPINE WO CONTRAST(Performed 07/04/2024) Performed for Fall, initial encounter * CT THORACIC SPINE WO CONTRAST(Performed 07/04/2024) Performed for Fall, initial encounter * CT CHEST ABDOMEN PELVIS W CONT(Performed 07/04/2024) Performed for Fall, initial encounter * CT CERVICAL SPINE WO CONTRAST(Performed 07/04/2024) Performed for Fall, initial encounter * CT HEAD WO CONTRAST(Performed 07/04/2024) Performed for Fall, initial encounter * TEG 6S PLATELET MAPPING(Performed 07/04/2024) * TEG 6 GLOBAL HEMOSTASIS W/ LYSIS(Performed 07/04/2024) * CBC W AUTO DIFFERENTIAL(Performed 07/04/2024) * BASIC METABOLIC PANEL (CALCIUM TOTAL)(Performed 07/04/2024) * ALCOHOL ETHYL BLOOD(Performed 07/04/2024) * XR PELVIS 1 OR 2VW(Performed 07/04/2024) Performed for Fall, initial encounter * XR CHEST 1VW PORTABLE(Performed 07/04/2024) Performed for Fall, initial encounter Results * (ABNORMAL) GLUCOSE - POINT OF CARE (07/10/2024 11:33 AM SENIOR SSIS DEVELOPER) Glucose WB/POC 131(H) 70 - 99 mg/dL 07/10/2024 3:47 PM SENIOR SSIS DEVELOPER [facility] Specimen Type Cap Fingerstick 2024 3:47 PM [facility] Blood BLOOD SPECIMEN / Unknown 07/10/2024 11:33 AM SENIOR SSIS DEVELOPER 07/10/2024 3:47 PM SENIOR SSIS DEVELOPER Cinthya Orantes MD LAB - POINT OF CARE ORDERABLES [facility] [address] [place] [address], [facility] [phone] * (ABNORMAL) BASIC METABOLIC PANEL (CALCIUM TOTAL) (07/09/2024 3:40 AM SENIOR SSIS DEVELOPER) Only the most recent of6 resultswithin the time period is included. BUN 26 7 - 26 mg/dL 07/09/2024 4:55 AM [facility] Creatinine 1.05 0.71 - 1.16 mg/dL 07/09/2024 4:55 AM [facility] Sodium 139 136 - 145 mmol/L 07/09/2024 4:55 AM [facility] Potassium 4.2 3.5 - 4.5 mmol/L 07/09/2024 4:55 AM [facility] Chloride 108(H) 98 - 107 mmol/L 07/09/2024 4:55 AM [facility] CO2 24 22 - 29 mmol/L 07/09/2024 4:55 AM [facility] Glucose 85 70 - 99 mg/dL 07/09/2024 4:55 AM [facility] Calcium 8.1(L) 8.4 - 10.2 mg/dL 07/09/2024 4:55 AM [facility] Anion Gap 7 6 - 16 07/09/2024 4:55 AM [facility] BUN/Creatinine Ratio 25(H) 7 - 23 07/09/2024 4:55 AM [facility] Osmolality Calculated 292 275 - 295 mOsm/kg 07/09/2024 4:55 AM [facility] eGFR by CKD-EPI 71(L) >=90 mL/min/1.7 3 m2 07/09/2024 4:55 AM [facility] Blood BLOOD SPECIMEN / Unknown Lab Venipuncture / Unknown 07/09/2024 3:40 AM SENIOR SSIS DEVELOPER 07/09/2024 4:29 AM SENIOR SSIS DEVELOPER Cinthya Orantes MD LAB - CHEMISTRY ORDERABLES Performing Organization Address City/[facility]/ZIP Co de Phone Number [address] [address], [facility] [phone] * PHOSPHORUS BLOOD (07/09/2024 3:40 AM SENIOR SSIS DEVELOPER) Only the most recent of5 resultswithin the time period is included. Phosphorus 3.5 2.8 - 5.1 mg/dL 07/09/2024 4:[address]IS [address] [facility] Blood BLOOD SPECIMEN / Unknown Lab Venipuncture / Unknown 07/09/2024 3:40 AM SENIOR SSIS DEVELOPER 07/09/2024 4:29 AM SENIOR SSIS DEVELOPER Cinthya Orantes MD LAB - CHEMISTRY ORDERABLES Performing Organization Address [facility] Co de Phone Number [address] [address], [facility] [phone] * MAGNESIUM BLOOD (07/09/2024 3:40 AM SENIOR SSIS DEVELOPER) Only the most recent of5 resultswithin the time period is included. Magnesium 2.0 1.6 - 2.6 mg/dL 07/09/2024 4:[address] [facility] Blood BLOOD SPECIMEN / Unknown Lab Venipuncture / Unknown 07/09/2024 3:40 AM SENIOR SSIS DEVELOPER 07/09/2024 4:29 AM SENIOR SSIS DEVELOPER Cinthya Orantes MD LAB - CHEMISTRY ORDERABLES Performing Organization Address City/[facility]/ZIP Co de Phone Number [address] [phone], [facility] [phone] * (ABNORMAL) CBC W AUTO DIFFERENTIAL (07/09/2024 3:39 AM SENIOR SSIS DEVELOPER) Only the most recent of6 resultswithin the time period is included. WBC 5.8 4.0 - 10.7 x10E9/L 07/09/2024 4:44 AM [facility] RBC Count 4.13(L) 4.30 - 5.80 x10E12/L 07/09/2024 4:44 AM [facility] Hemoglobin 12.2(L) 13.3 - 17.5 g/dL 07/09/2024 4:44 AM [facility] Hematocrit 36.8(L) 38.7 - 51.1 % 07/09/2024 4:44 AM [facility] MCV 89.1 80.0 - 98.0 fL 07/09/2024 4:44 AM [facility] MCH 29.5 26.7 - 33.6 pg 07/09/2024 4:44 AM [facility] MCHC 33.2 31.7 - 36.3 g/dL 07/09/2024 4:44 AM [facility] RDW-CV 14.0 11.3 - 14.8 % 07/09/2024 4:44 AM [facility] Platelet Count 105(L) 150 - 420 x10E9/L 07/09/2024 4:44 AM [facility] MPV 10.2 7.8 - 11.4 fL 07/09/2024 4:44 AM [facility] Neutrophil % 59.2 41.0 - 74.0 % 07/09/2024 4:44 AM [facility] Lymphocyte % 21.8 17.0 - 47.0 % 07/09/2024 4:44 AM [facility] Monocyte % 9.3 3.0 - 11.0 % 07/09/2024 4:44 AM [facility] Eosinophil % 8.8(H) 0.0 - 7.0 % 07/09/2024 4:44 AM [facility] Basophil % 0.7 0.0 - 1.6 % 07/09/2024 4:44 AM [facility] Immature Granulocytes % 0.2 0.0 - 1.0 % 07/09/2024 4:44 AM [facility] Neutrophil Absolute 3.42 1.60 - 7.50 x10E9/L 07/09/2024 4:44 AM [facility] Lymphocyte Absolute 1.26 1.00 - 4.40 x10E9/L 07/09/2024 4:44 AM SENIOR SSIS DEVELOPER [facility] Monocyte Absolute 0.54 0.15 - 1.00 x10E9/L 07/09/2024 4:[address]IS [address] [facility] Eosinophil Absolute 0.51 0.00 - 0.60 x10E9/L 07/09/2024 4:[address] SSIS DEVEL[address] [facility] Basophil Absolute 0.04 0.00 - 0.13 x10E9/L 07/09/2024 4:[address]IS DEVEL[address] [facility] Blood BLOOD SPECIMEN / Unknown Lab Venipuncture / Unknown 07/09/2024 3:39 AM SENIOR SSIS DEVELOPER 07/09/2024 4:27 AM SENIOR SSIS DEVELOPER Cinthya Orantes MD LAB - HEMATOLOG Y ORDERABLES [facility] [address] [place] [address], [facility] [phone] * SARS-COV-2 (COVID-19) RAPID (07/05/2024 1:45 PM SENIOR SSIS DEVELOPER) COVID-19 PCR Not detected Not detected 07/05/19 2:[address] [facility] Microbiology SPECIMEN FROM NASOPHARYNGEAL STRUCTURE / Unknown Collection / Unknown 07/05/2024 1:45 PM SENIOR SSIS DEVELOPER 07/05/2024 1:53 PM SENIOR SSIS DEVELOPER Narrative [facility] - 07/05/2024 2:26 PM SENIOR SSIS DEVELOPER The Cepheid Xpert Xpress SARS-COV-2 has been [...] Rivera MD LAB - MICROBIOLOGY O RDERABLES [facility] [address] [place] [address], [facility] [phone] * CARDIAC EKG ORDER (07/05/2024 11:30 AM SENIOR SSIS DEVELOPER) Narrative 07/05/2024 11:30 AM SENIOR SSIS DEVELOPER Ordered by an unspecified provider. Scanned Document CARDIAC SERVICES ORD ERABLES * (ABNORMAL) URINALYSIS W/MICROSCOPIC NO CULTURE (07/05/2024 3:59 AM SENIOR SSIS DEVELOPER) Color UA Yellow Straw, Yellow 07/05/2024 4:24 AM [facility] Clarity UA Slt Cloudy(A) Clear 07/05/2024 4:24 AM [facility] Specific [place] UA 1.032(H) 1.005 - 1.030 07/05/2024 4:24 AM [facility] pH UA 5.0 5.0 - 8.0 pH 07/05/2024 4:24 AM [facility] Protein UA Negative Negative 07/05/2024 4:24 AM [facility] Glucose UA Negative Negative 07/05/2024 4:24 AM [facility] Ketone UA Trace(A) Negative 07/05/2024 4:24 AM [facility] Bilirubin UA Negative Negative 07/05/2024 4:24 AM [facility] Blood UA Negative Negative 07/05/2024 4:24 AM [facility] Nitrite UA Negative Negative 07/05/2024 4:24 AM [facility] Leukocyte Esterase Trace(A) Negative 07/05/2024 4:24 AM [facility] Urobilinogen UA Negative Negative mg/dL 07/05/2024 4:24 AM [facility] RBC UA 21-50(A) None Seen, 0-2, 3-5 /HPF 07/05/2024 4:24 AM [facility] WBC UA 11-20(A) None Seen, 0-5 /HPF 07/05/2024 4:24 AM [facility] Bacteria UA 1+(A) None /HPF 07/05/2024 4:24 AM [facility] Squamous Epithelial Cells UA None Seen None Seen, 0-2, 3-5 /HPF 07/05/2024 4:24 AM [facility] Amorphous Crystals Few(A) None /HPF 07/05/2024 4:24 AM [facility] Urine URINE SPECIMEN OBTAINED BY CLEAN CATCH PROCEDURE / Unknown Collection / Unknown 07/05/2024 3:59 AM SENIOR SSIS DEVELOPER 07/05/2024 4:03 AM [facility] - 07/05/2024 4:24 AM [facility] Cinthya Orantes MD LAB - URINALYSI S ORDERABLES Performing Organization Address [facility]/State/[facility] Co de Phone Number [address] [phone] [phone] * (ABNORMAL) URINE DRUG SCREEN IMMUNOASSAY (07/05/2024 3:59 AM SENIOR SSIS DEVELOPER) Pathologist [facility] Amphetamines Screen Urine Negative Negative : < 1000 ng/mL 07/05/2024 4:42 AM [facility] Barbiturates Screen Urine Positive(A) Negative : < 200 ng/mL 07/05/2024 4:42 AM [facility] Comment: Positive urine barbiturate screening results should be confirmed by another generally accepted non-immunological method such as gas chromatography or mass spectrometry. Benzodiazepine Screen Urine Negative Negative : < 200 ng/mL 07/05/2024 4:42 AM [facility] Opiates Urine Negative Negative : < 300 ng/mL 07/05/2024 4:42 AM [facility] Cocaine Metabolites Urine Negative Negative : < 300 ng/mL 07/05/2024 4:42 AM [facility] Phencyclidine Screen Urine Negative Negative : < 25 ng/ml 07/05/2024 4:42 AM [facility] Cannabinoids Screen Urine Negative Negative : <50 ng/mL 07/05/2024 4:42 AM [facility] Methadone Screen Urine Negative Negative : < 300 ng/mL 07/05/2024 4:42 AM [facility] Fentanyl Screen Urine Negative Negative : <1.5 ng/mL 07/05/2024 4:42 AM [facility] Urine URINE / Unknown Collection / Unknown 07/05/2024 3:59 AM SENIOR SSIS DEVELOPER 07/05/2024 4:04 AM SENIOR SSIS DEVELOPER Narrative [facility] - 07/05/2024 4:42 AM SENIOR SSIS DEVELOPER The Urine Toxicology Screening Panel does not screen for Propoxyphene, Meprobamate, Carisoprodol, Trazodone, [id number] medications and/or volatiles (Acetone, Isopropanol, Methanol or Ethylene Glycol). Ethanol, Salicylate, Acetaminophen, Tricyclic Antidepressants and several therapeutic drugs may be individually assayed in serum or plasma specimen. Toxicology testing by the [facility] is an aid to medical diagnosis and treatment of patients. No documented chain of custody was maintained. Results are intended to be used for clinical purposes only. Cinthya Orantes MD LAB - URINE ANDRA TRIPP ORDERABLES [facility] [address] [phone], [facility] [phone] * CT Head Wo Contrast (07/04/2024 11:19 AM SENIOR SSIS DEVELOPER) Only the most recent of2 resultswithin the time period is included. Anatomical Region Laterality Modality Head Computed Tomogra phy 07/04/2024 11:3 9 AM SENIOR SSIS DEVELOPER Impressions 07/04/2024 11:42 AM SENIOR SSIS DEVELOPER IMPRESSION: 1. Unchanged size of the bilateral subdural hematomas along the cerebral convexities measuring up to 5 mm in maximum thickness. Slightly increased attenuation is likely related to contrast staining from the previous examinations. > Interpreting Provider: Veda Monk MD on 07/04/2024 11:42 AM Narrative 07/04/2024 11:42 AM SENIOR SSIS DEVELOPER PROCEDURE: CT HEAD WO CONTRAST, DATE/TIME OF EXAM: 07/04/2024 11:19 AM, LOCATION [facility] INDICATION: S06.5XAA: SDH (subdural hematoma) (HCC) ADDITIONAL [...] DATE/TIME OF EXAM: 07/04/2024 11:19 AM, LOCATION [facility] INDICATION: S06.5XAA: SDH (subdural hematoma) ([facility]) ADDITIONAL CLINICAL INFORMATION: Ordering Provider Reason For [...] * BLOOD TYPE VERIFICATION (07/04/2024 9:40 AM SENIOR SSIS DEVELOPER) ABO Rh O POS 07/04/2024 10:38 AM SENIOR SSIS DEVELOPER [facility] Blood Bank BLOOD SPECIMEN / Unknown Venipuncture / Unknown 07/04/2024 9:40 AM SENIOR SSIS DEVELOPER 07/04/2024 9:52 AM SENIOR SSIS DEVELOPER Cinthya Orantes MD LAB - BLOOD BAN K ORDERABLES Performing Organization Address [facility]/ZIP Co de Phone Number [facility] [address] [place] [phone], [place] [phone] * TYPE + SCREEN PANEL (07/04/2024 9:38 AM SENIOR SSIS DEVELOPER) Antibody Screen NEG 10:56 AM SENIOR SSIS DEVELOPER [facility] ABO Rh O POS 07/04/2024 10:56 AM SENIOR SSIS DEVELOPER [facility] Blood Bank BLOOD SPECIMEN / Unknown Venipuncture / Unknown 07/04/2024 9:38 AM SENIOR SSIS DEVELOPER 07/04/2024 9:51 AM SENIOR SSIS DEVELOPER Cnithya Orantes MD LAB - BLOOD BAN K ORDERABLES Performing Organization Address City/[facility]/ZIP Co de Phone Number [facility] [address] [phone], [place] [phone] * EKG 12-LEAD (07/04/2024 6:31 AM SENIOR SSIS DEVELOPER) Ventricular Rate 60 BPM [facility] Atrial Rate 60 BPM [facility] P-R Interval 180 ms [facility] QRS Duration ms 80 ms [facility] Q-T Interval ms 418 ms [facility] QTC Calculation (Bezet) 418 ms [facility] Calculated P [place] 52 degrees [facility] Calculated R [place] -26 degrees [facility] Calculated T [place] 46 degrees [facility] Interpretation EKG NORMAL SINUS RHYTHM LOW VOLTAGE QRS SEPTAL INFARCT , AGE UNDETERMINED ABNORMAL ECG NO PREVIOUS ECGS AVAILABLE Confirmed by BERNADETTE ANDRADE, KATY ([id number]) on 07/13/2024 10:51:42 PM [facility] 07/04/2024 6:31 AM SENIOR SSIS DEVELOPER 07/13/2024 10:51 PM SENIOR SSIS DEVELOPER Cinthya Orantes MD ECG ORDERABLES Performing Organization Address [facility]/ZIP Co de Phone Number [facility] * PTT [facility] (07/04/2024 6:24 AM SENIOR SSIS DEVELOPER) APTT 23.3 23.0 - 38.4 Seconds 07/04/2024 7:00 AM [facility] Comment:Suggested therapeuti c range for full dose I.V. unfractionated heparin therapy for venous thromboembolism is 71 to 109 seconds. Blood BLOOD SPECIMEN / Unknown Venipuncture / Unknown 07/04/2024 6:24 AM SENIOR SSIS DEVELOPER 07/04/2024 6:35 AM SENIOR SSIS DEVELOPER Cinthya Orantes MD LAB - COAGULATI ON ORDERABLES Performing Organization Address [facility] Co de Phone Number [facility] [address] [phone], [facility] [phone] * PT-INR [facility] (07/04/2024 6:24 AM SENIOR SSIS DEVELOPER) PT 14.2 12.1 - 14.8 Seconds 07/04/2024 7:00 AM [facility] INR 1.1 See Comment 07/04/2024 7:00 AM [facility] Comment:The suggested therap eutic range for standard coumadin (warfarin) therapy is an INR of 2.0-3.0. For high-risk patients (Mechanical Mitral Valve Prosthesis, etc.), the suggested prophylactic therapeutic range is an INR of 2.5-3.5. Blood BLOOD SPECIMEN / Unknown Venipuncture / Unknown 07/04/2024 6:24 AM SENIOR SSIS DEVELOPER 07/04/2024 6:35 AM SENIOR SSIS DEVELOPER Cinthya Orantes MD LAB - COAGULATI ON ORDERABLES [facility] [address] [phone], [facility] [phone] * CT CHEST ABDOMEN PELVIS W CONT - Abdomen-pelvis trauma, blunt or penetrating (07/04/2024 6:23 AM SENIOR SSIS DEVELOPER) Anatomical Region Laterality Modality Chest, Abdomen, Pelvis Computed Tomography 07/04/2024 6:27 AM SENIOR SSIS DEVELOPER Impressions 07/04/2024 9:01 AM SENIOR SSIS DEVELOPER Impression: 1.No acute visceral, vascular, or osseus injury identified in the chest, abdomen, or pelvis. 2.Ectatic ascending aorta. 3.Moderate hiatal hernia. 4.Soft tissue contusion of right gluteal region. 5.Enlarged prostate with mild bladder wall thickening with slightly trabeculated appearance and a few diverticula overall favored to be related to underlying chronic bladder outlet obstruction. > Dictated by Ant De Jesus MD (resident care manager rn). I, Puneet Perez have personally reviewed and interpreted this examination/study. > Interpreting Provider: Puneet Perez on 07/04/2024 9:01 AM Narrative 07/04/2024 9:01 AM SENIOR SSIS DEVELOPER PROCEDURE: CT CHEST ABDOMEN PELVIS W CONT, DATE/TIME OF EXAM: 07/04/2024 6:23 AM, LOCATION [facility] INDICATION: Trauma ADDITIONAL CLINICAL INFORMATION: Ordering Provider [...] CONT, DATE/TIME OF EXAM:07/04/2024 6:23 AM, LOCATION [facility] INDICATION: Trauma ADDITIONAL CLINICAL INFORMATION: Ordering Provider [...] > Dictated by Ant De Jesus MD (resident care manager rn). Puneet Esparza have personally reviewed and interpreted this examination/study. > Interpreting Provider: Pnueet Perez on 07/04/2024 9:01 AM Cinthya Orantes MD CT ORDERABLES * CT LUMBAR SPINE WO CONTRAST - T/L-spine trauma, Spine fracture (07/04/2024 6:23 AM SENIOR SSIS DEVELOPER) Anatomical Region Laterality Modality Spine Computed Tomogra phy 07/04/2024 8:00 AM SENIOR SSIS DEVELOPER Impressions 07/04/2024 11:32 AM SENIOR SSIS DEVELOPER IMPRESSION: 1. No evidence of acute fracture in the cervical, thoracic, or lumbar spine. 2. Multiple chronic findings as detailed in the report. > Dictated by Arnoldo Banks MD, (resident care manager rn). Veda Esparza MD have personally reviewed and interpreted this examination/study. > Interpreting Provider: Veda Monk MD on 07/04/2024 11:32 AM Narrative 07/04/2024 11:32 AM SENIOR SSIS DEVELOPER PROCEDURE: CT CERVICAL SPINE WO CONTRAST, CT LUMBAR SPINE WO CONTRAST, CT THORACIC SPINE WO CONTRAST, DATE/TIME OF EXAM: 07/04/2024 6:23 AM, LOCATION [place] [facility] INDICATION: Trauma ADDITIONAL CLINICAL INFORMATION: Ordering Provider [...] degrees of up to moderate facet osteoarthritis [id number] neuroforaminal stenosis in the right L4-L5 neural foramina . Procedure Note Veda Monk MD - 07/04/2024 PROCEDURE: CT CERVICAL SPINE WO CONTRAST, CT LUMBAR SPINE WO CONTRAST,CT THORACIC SPINE WO CONTRAST, DATE/TIME OF EXAM: 07/04/2024 6:23 AM,LOCATION [facility] INDICATION: Trauma ADDITIONAL CLINICAL INFORMATION: Ordering Provider [...] varyingdegrees of up to moderate facet osteoarthritis [id number]-pn-[id number] neuroforaminal stenosis in the right L4-L5 neural foramina . IMPRESSION: 1. No evidence of acute fracture in the cervical, thoracic, or lumbar spine. 2. Multiple chronic findings as detailed in the report. > Dictated by Arnoldo Banks MD, (resident care manager rn). I, Veda Monk MD have personally reviewed and interpreted this examination/study. > Interpreting Provider: Veda Monk MD on 07/04/2024 11:32 AM Cinthya Orantes MD CT ORDERABLES * CT THORACIC SPINE WO CONTRAST - T/L-spine trauma, spine fracture (07/04/2024 6:23 AM SENIOR SSIS DEVELOPER) Anatomical Region Laterality Modality Spine Computed Tomogra phy 07/04/2024 8:00 AM SENIOR SSIS DEVELOPER Impressions 07/04/2024 11:32 AM SENIOR SSIS DEVELOPER IMPRESSION: 1. No evidence of acute fracture in the cervical, thoracic, or lumbar spine. 2. Multiple chronic findings as detailed in the report. > Dictated by Arnoldo Banks MD, (resident care manager rn). I, Veda Monk MD have personally reviewed and interpreted this examination/study. > Interpreting Provider: Veda Monk MD on 07/04/2024 11:32 AM Narrative 07/04/2024 11:32 AM SENIOR SSIS DEVELOPER PROCEDURE: CT CERVICAL SPINE WO CONTRAST, CT LUMBAR SPINE WO CONTRAST, CT THORACIC SPINE WO CONTRAST, DATE/TIME OF EXAM: 07/04/2024 6:23 AM, LOCATION [facility] INDICATION: Trauma ADDITIONAL CLINICAL INFORMATION: Ordering Provider [...] degrees of up to moderate facet osteoarthritis [id number]-[id number]-[id number] neuroforaminal stenosis in the right L4-L5 neural foramina . Procedure Note Veda Monk MD - 07/04/2024 PROCEDURE: CT CERVICAL SPINE WO CONTRAST, CT LUMBAR SPINE WO CONTRAST,CT THORACIC SPINE WO CONTRAST, DATE/TIME OF EXAM: 07/04/2024 6:23 AM,LOCATION [facility] INDICATION: Trauma ADDITIONAL CLINICAL INFORMATION: Ordering Provider [...] varyingdegrees of up to moderate facet osteoarthritis fufc-qi-znzdzqsh neuroforaminal stenosis in the right L4-L5 neural foramina . IMPRESSION: 1. No evidence of acute fracture in the cervical, thoracic, or lumbar spine. 2. Multiple chronic findings as detailed in the report. > Dictated by Arnoldo Banks MD, (resident care manager rn). I, Veda Monk MD have personally reviewed and interpreted this examination/study. > Interpreting Provider: Veda Monk MD on 07/04/2024 11:32 AM Cinthya Orantes MD CT ORDERABLES * CT CERVICAL SPINE WO CONTRAST - C-Spine Trauma, Spine fracture (07/04/2024 6:23 AM SENIOR SSIS DEVELOPER) Anatomical Region Laterality Modality Spine Computed Tomogra phy 07/04/2024 8:00 AM SENIOR SSIS DEVELOPER Impressions 07/04/2024 11:32 AM SENIOR SSIS DEVELOPER IMPRESSION: 1. No evidence of acute fracture in the cervical, thoracic, or lumbar spine. 2. Multiple chronic findings as detailed in the report. > Dictated by Arnoldo Banks MD, (resident care manager rn). I, Veda Monk MD have personally reviewed and interpreted this examination/study. 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 IMPRESSION: 1. No evidence of acute fracture in the cervical, thoracic, or lumbar spine. 2. Multiple chronic findings as detailed in the report. > Dictated by Arnoldo Banks MD, (resident care manager rn). I, Veda Monk MD have personally reviewed and interpreted this examination/study. > Interpreting Provider: Veda Monk MD on 07/04/2024 11:32 AM Cinthya Orantes MD CT ORDERABLES * (ABNORMAL) TEG 6 GLOBAL HEMOSTASIS W/ LYSIS (07/04/2024 6:00 AM SENIOR SSIS DEVELOPER) Citrated Kaolin R (Reaction Time) 2.6(L) 4.6 - 9.1 min 07/04/2024 7:39 [address]ENIOR SSIS DEVEL[address] [facility] Comment:CK R result below no rmal range. Consistent with hypercoagulable clotting factors. Citrated Kaolin LY30 (Lysis) 0.0 0.0 - 2.6 % 07/04/2024 7:39 [address]IS DEV[address] [facility] Citrated Functional Fibrinogen MA (Max Amplitude) 13.1(L) 15.0 - 32.0 mm 07/04/2024 7:39 AM [facility] Comment:CFF MA below normal range. Consistent with decreased fibrinogen contribution to clot strength. Citrated RapidTEG MA (Max Amplitude) 49.6(L) 52.0 - 70.0 mm 07/04/2024 7:39 AM [facility] Comment:FIRE OPERATIONS FORESTER MA below normal range. Consistent with reduced clot strength from platelets or fibrinogen. Compare with CFF MA. Blood BLOOD SPECIMEN / Unknown Venipuncture / Unknown 07/04/2024 6:00 AM SENIOR SSIS DEVELOPER 07/04/2024 6:37 AM [facility] Cinthya Orantes MD LAB - HEMATOLOG Y ORDERABLES Performing Organization Address [facility]/ZIP Co de Phone Number [facility] [address] [phone], [facility] [phone] * (ABNORMAL) TEG 6S PLATELET MAPPING (07/04/2024 6:00 AM [facility]) TEGPLM (Max Amplitude) [place] 52.8(L) 53.0 - 68.0 mm 07/04/2024 7:23 AM [facility] TEGPLM (Max Amplitude) ACTF 3.6 2.0 - 19.0 mm 07/04/2024 7:23 AM [facility] TEGPLM (Max Amplitude) ADP 16.8(L) 45.0 - 69.0 mm 07/04/2024 7:23 AM [facility] Comment:ADP MA below normal range. Inhibition present. TEGPLM (Max Amplitude) AA 8.1(L) 51.0 - 71.0 mm 07/04/2024 7:23 AM [facility] Comment:AA MA below normal r ct. Inhibition present. TEGPLM %Inhibition ADP 73.2(H) 0.0 - 17.0 % 07/04/2024 7:23 AM [facility] TEGPLM %Inhibition AA 90.9(H) 0.0 - 11.0 % 07/04/2024 7:23 AM [facility] TEGPLM %Aggregation ADP 26.8(L) 83.0 - 100.0 % 07/04/2024 7:23 AM [facility] TEGPLM % Aggregation AA 9.1(L) 89.0 - 100.0 % 07/04/2024 7:23 AM [facility] Blood BLOOD SPECIMEN / Unknown Venipuncture / Unknown 07/04/2024 6:00 AM SENIOR SSIS DEVELOPER 07/04/2024 6:37 AM SENIOR SSIS DEVELOPER Cinthya Orantes MD LAB - HEMATOLOG Y ORDERABLES Performing Organization Address [facility]/ZIP Co de Phone Number [address] [address], [facility] [phone] * ALCOHOL ETHYL BLOOD (07/04/2024 6:00 AM [facility]) Ethanol (mg/dL) <10 <10 mg/dL 7:03 AM [facility] Ethanol Calculated (g/dL) <0.010 <=0.010 g/dL 07/04/2024 7:03 AM [facility] Blood BLOOD SPECIMEN / Unknown Venipuncture / Unknown 07/04/2024 6:00 AM SENIOR SSIS DEVELOPER 07/04/2024 6:39 AM SENIOR SSIS DEVELOPER Narrative [facility] - 07/04/2024 7:03 AM [facility] Ethanol Interp <10: None Detected. Depression of TOY DESIGNER: >100 mg/dl Potentially Critical: >250 mg/dl Potentially [...] LAB - CHEMISTRY ORDERABLES Performing Organization Address [facility]/ZIP Co de Phone Number [address] [address], [place] [phone] * XR CHEST 1VW PORTABLE (07/04/2024 6:00 AM SENIOR SSIS DEVELOPER) Anatomical Region Laterality Modality Chest Digital Radiogra phy 07/04/2024 6:08 AM SENIOR SSIS DEVELOPER Impressions 07/04/2024 9:56 AM SENIOR SSIS DEVELOPER IMPRESSION: No acute pulmonary disease. Prominence of the aortic arch could indicate aortic dilatation. > Dictated by Pauline Bravo MD (resident care manager rn) IElkin MD have personally reviewed and interpreted this examination/study. > Interpreting Provider: Elkin Eric MD on 07/04/2024 9:56 AM Narrative 07/04/2024 9:56 AM SENIOR SSIS DEVELOPER PROCEDURE: XR CHEST 1VW PORTABLE, DATE/TIME OF EXAM: 07/04/2024 6:08 AM, LOCATION [facility] INDICATION: Trauma ADDITIONAL CLINICAL INFORMATION: Ordering Provider Reason For Exam: Technologist Note: Additional: COMPARISON: None. FINDINGS: There is no pulmonary consolidation, pleural effusion, or pneumothorax. The heart size is normal. Prominence of the aortic arch could indicate aortic dilatation. Procedure Note Elkin Eric MD - 07/04/2024 PROCEDURE: XR CHEST 1VW PORTABLE, DATE/TIME OF EXAM: 07/04/2024 6:08AM, LOCATION [facility] INDICATION: Trauma ADDITIONAL CLINICAL INFORMATION: Ordering Provider Reason For Exam: Technologist Note: Additional: COMPARISON: None. FINDINGS: There is no pulmonary consolidation, pleural effusion, or pneumothorax. The heart size is normal. Prominence of the aortic arch could indicate aortic dilatation. IMPRESSION: No acute pulmonary disease. Prominence of the aortic arch could indicate aortic dilatation. > Dictated by Pauline Bravo MD (resident care manager rn) Elkin Esparza MD have personally reviewed and interpreted this examination/study. > Interpreting Provider: Elkin Eric MD on 07/04/2024 9:56 AM Cinthya Orantes MD DIAGNOSTIC IMAG ING ORDERABLES * XR PELVIS 1 OR 2VW (07/04/2024 6:00 AM SENIOR SSIS DEVELOPER) Anatomical Region Laterality Modality Pelvis Digital Radiogra phy 07/04/2024 6:34 AM SENIOR SSIS DEVELOPER Impressions 07/04/2024 9:54 AM SENIOR SSIS DEVELOPER IMPRESSION: No acute fracture identified. Report dictated by Pauline Bravo MD (resident care manager rn). Elkin Esparza MD have personally reviewed and interpreted this examination/study. > Interpreting Provider: Elkin Eric MD on 07/04/2024 9:54 AM Narrative 07/04/2024 9:54 AM SENIOR SSIS DEVELOPER PROCEDURE: XR PELVIS 1 OR 2VW, DATE/TIME OF EXAM: 07/04/2024 6:08 AM, LOCATION [facility] INDICATION: Trauma Fracture suspected COMPARISON: None. FINDINGS: No acute fracture is identified. The femoral heads appear well-seated within their respective acetabula. The pubic symphysis is intact. Bone density and texture are normal. The sacroiliac joints are normal. Procedure Note Elkin Eric MD - 07/04/2024 PROCEDURE: XR PELVIS 1 OR 2VW, DATE/TIME OF EXAM: 07/04/2024 6:08 AM, LOCATION [facility] INDICATION: Trauma Fracture suspected COMPARISON: None. FINDINGS: No acute fracture is identified. The femoral heads appear well-seated within their respective acetabula. The pubic symphysis is intact. Bone density and texture are normal. The sacroiliac joints are normal. IMPRESSION: No acute fracture identified. Report dictated by Pauline Bravo MD (resident care manager rn). Elkin Esparza MD have personally reviewed and interpreted this examination/study. > Interpreting Provider: Elkin Eric MD on 07/04/2024 9:54 AM Cinthya Orantes MD DIAGNOSTIC IMAG ING ORDERABLES Care Teams Research Associate Molecular Biology Relationship Specialty Start Date End Date Darren Butler DO [address] [place] [phone] PCP - General Internal Medicine 07/05/24
[2024-08-08 02:00] VITALS: BP 138/91; PULSE 56; RESP 14; TEMP 36.7; O2SAT 97
--- NOTE | 2024-08-08 02:14 | ECG_ITS ---
Test Date: 2024-08-08 02:40:50 Measurements Intervals [place] Rate: 52 P: 266 CT: 137 QRS: -32 QRSD: 97 T: 58 QT: 424 QTc: 395 Interpretive Statements SINUS RHYTHM MARKED LEFT AXIS DEVIATION [QRS AXIS < -30] LOW QRS VOLTAGE IN PRECORDIAL LEADS [QRS DEFLECTION < 1.0 mV IN CHEST LEADS] POSSIBLE ANTERIOR MYOCARDIAL INFARCTION , PROBABLY OLD [30 ms Q WAVE IN V3/V4, OR R < 0.2 mV IN V4] Compared to ECG 07/04/2024 02:17:03 NO SIGNIFICANT CHANGES Electronically Signed On 08-08-2024 13:19:55 RETAIL BUSINESS ANALYST by Cindi Fine M.D.
[2024-08-08 02:42] LABS: Basophils Percent Auto 0.6 % (0.2-1.2); Eosinophils Absolute Auto 0.3 K/mm3 (0-0.3); Eosinophils Percent Auto 3.8 % (0-4.4); Hematocrit 41.3 % (42.0-52.0); Hemoglobin 13.4 g/dL (14.0-18.0); Immature Granulocyte Absolute 0.02 K/mm3 (0.00-0.031); Immature Granulocyte Percent A 0.3 % (0-0.5); Immature Platelet Fraction Pct 2.7 % (0.9-11.2); Lymphocytes Percent Auto 24.2 % (18.3-44.2); Mean Corpuscular HGB Conc 32.4 g/dl (32-36); Mean Corpuscular Volume 92.6 fl (80-100); Mean Platelet Volume 9.8 fl (7.4-10.4); Monocytes Absolute Auto 0.4 K/mm3 (0.1-0.6); Monocytes Percent Auto 6.5 % (2.6-8.5); Neutrophils Absolute Auto 4.3 K/mm3 (1.3-6.7); Neutrophils Percent Auto 64.6 % (45.5-73.1); Platelet Count Result 112 k/mm3 (150-375); Red Blood Count 4.46 M/mm3 (4.6-6.20); Red Cell Distribution Width 13.6 % (11.5-14.5); White Blood Count 6.6 K/mm3 (4.5-10.0)
[2024-08-08 02:51] LABS: Alanine Aminotransferase 12 U/L (6-50); Albumin Level 3.2 g/dL (3.5-5.1); Alkaline Phosphatase 62 U/L (38-126); Anion Gap 8 mmol/L (4-12); Aspartate Amino Transferase 14 U/L (17-59); Bilirubin,Total 0.9 mg/dL (0.2-1.3); Blood Urea Nitrogen 32 mg/dL (9-20); Calcium 8.2 mg/dL (8.4-10.2); Carbon Dioxide 26 mmol/L (22-30); Chloride 104 mmol/L (98-107); Estimated CRCL calculation 60 ml/min; Estimated Glomerular Filt Rate > 60; Glucose 87 mg/dL (65-110); Potassium 3.8 mmol/L (3.4-5.0); Sodium 138 mmol/L (137-145)
[2024-08-08 03:18] LABS: Add Urine Microscopic? YES; Appearance Urine Cloudy (Clear); Bacteria Urine 4+ /hpf; Bilirubin Urine Negative (Negative); Blood Urine Negative (Negative); Color Urine Yellow (Yellow); Glucose Urine UA Negative (Negative); Ketones Urine Trace mg/dL (Negative); Leukocyte Esterase Ur 1+ LEU/UL (Negative); Need Manual Microscopic Reviewed; Nitrate Urine Negative (Negative); Non Pathogenic Casts 0-2; Protein Urine Trace mg/dL (Negative); RBC Urine 51-100 /hpf (0-2); Specific Grav Ur 1.016 (1.001-1.035); Squamous Epithelial Cell Urine None Seen /hpf (Few); Urobilinogen Urine 0.2 mg/dL (<2.0); WBC Urine 0-5 /hpf (0-3)
[2024-08-08 04:00] VITALS: BP 152/80; PULSE 55; RESP 14; TEMP 36.7; O2SAT 97
[2024-08-08 05:26] VITALS: BP 140/83; PULSE 55; RESP 13; TEMP 36.4; O2SAT 98
[2024-08-08] MEDS: ACETAMINOPHEN 500 MG TABLET 1000 MG PO (05:32)
[2024-08-08 07:50] VITALS: BP 134/84; PULSE 54; RESP 17; O2SAT 96
== END 2024-08-08 08:05 ==
PROVIDERS: Physician Assistant; Emergency Provider Emergency Medicine
DX: S09.90XA Unspecified injury of head, initial encounter (principal); H10.9 Unspecified conjunctivitis; I71.23 Aneurysm of the descending thoracic aorta, without rupture; I10 Essential (primary) hypertension; G47.30 Sleep apnea, unspecified; W01.0XXA Fall on same level from slipping, tripping and stumbling without subsequent striking against object, initial encounter; R82.998 Other abnormal findings in urine
CPT/HCPCS: 36415; 70450; 71045; 72125; 80053; 81001; 85025; 85055; 87086; 90471; 90715; 93005; 99284; A9270

== ENCOUNTER 2024-08-14 05:51 | Inpatient (IN) | payer MEDICARE, SELFPAY ==
--- NOTE | ~2024-08-14 | XR_ITS ---
INTRAOPERATIVE FLUOROSCOPY: CLINICAL HISTORY: 83 years old Male; RIGHT HIP PINNING PROCEDURE COMMENTS: Limited intraoperative fluoroscopy of the right was performed. CUMULATIVE DOSE: 24.1 mGy FLUOROSCOPY TIME: 84 seconds FINDINGS/IMPRESSION: Please refer to operative note for further details. Reviewed, dictated and finalized at location A.
--- NOTE | ~2024-08-14 | XR_ITS ---
AP view of the pelvis and AP and lateral views of the right hip Clinical history: Pain Findings: There is an acute, transverse, nearly nondisplaced fracture of the subcapital right femoral neck. Fracture is mildly impacted.. Bilateral hip and SI joint spaces are preserved. Soft tissues ar e unremarkable. Impression: Acute, essentially nondisplaced subcapital fracture of the proximal right femoral neck. Reviewed, dictated and finalized at location M. Impression: Acute, essentially nondisplaced subcapital fracture of the proximal right femor al neck.
[2024-08-14 05:52] VITALS: BP 155/104; PULSE 63; RESP 16; TEMP 36.4; O2SAT 97
--- OUTSIDE RECORDS SUMMARY | 2024-08-14 06:09 | XMS_ITS | Clinical Summary ---
Author Organization [facility] Address [address] [place] [phone] Phone Care Team Providers Care Air Quality Instrument Specialist Name Role Phone Eric French MD Primary Care Provider [phone] Allergies Active Allergy Reactions Criticality Noted Date [...] Comments Blood Pressure 162/80 05/05/2022 2:40 PM TUBE AND MANIFOLD BUILDER Pulse 60 05/05/2022 2:40 PM TUBE AND MANIFOLD BUILDER Temperature 35.3 C (95.5 F) 05/05/2022 2:40 PM TUBE AND MANIFOLD BUILDER Respiratory Rate - - Oxygen Saturation - - Inhaled Oxygen Concentration - - Weight 89.4 kg (197 lb) 05/05/2022 2:40 PM TUBE AND MANIFOLD BUILDER Height 182.9 cm (6') 05/05/2022 2:40 PM TUBE AND MANIFOLD BUILDER Body Mass Index 26.72 05/05/2022 2:40 PM TUBE AND MANIFOLD BUILDER Plan of Treatment Health Maintenance Due Date Last Done Comments Pneumococcal PPSV23/PCV13 65 + Years / High and Highest Risk (1 of 4 - PCV) 1946 Influenza Vaccine (#1) 2024 Care Teams Air Quality Instrument Specialist Relationship Specialty Start Date End Date Eric French MD [address] [place] [id number] PCP - General Internal Medicine 05/05/22
--- OUTSIDE RECORDS SUMMARY | 2024-08-14 06:09 | XMS_ITS | Clinical Summary ---
Author Organization [facility] Address [address] [place] [address] Care Team Providers Care Photoengraving Etcher Apprentice Name Role Phone Unavailable Primary Care Provider [...] 05/31/2019 Immunizations Name Administration Dates Next Due Fluzone [...] Influenza Adult (#1) 2024 04/06/2022 PHQ-2 (Physician Wenonah) 06/06/2024 Meningococcal B Vaccine Aged Out No l onger eligible based on patient's age to complete this topic Meningococcal Vaccine Aged Out No tyler soumya eligible based on patient's age to complete this topic RSV Immunizations Under 20 Months Aged Out No longer eligible based on patient's age to complete this topic Insurance
--- OUTSIDE RECORDS SUMMARY | 2024-08-14 06:10 | XMS_ITS | Encounter Summary ---
Author Organization [employer] Address [address] Navarro: Epic Prelude ADT MARIANA SIDHU [address] Care Team Providers Care Tandem Mill Operator Name Role Phone Jeremy Carreon MD Primary Care Provider [phone] Encounter Details Date Type Department Care Team (Late st Contact Info) Description 12/08/1988 Outpatient Historical Deb, MD [facility] [address] [facility] [address] [place] [id number] Social History Tobacco Use Types Packs/Day Years Used Date Smoking Tobacco: Never Assessed Sex and Gender Information Value Date Recorded Sex Assigned at Not on file Legal Sex Male 3:20 AM TITLE COORDINATOR Gender Identity Not on file Sexual Orientation Not on file documented as of this encounter Plan of Treatment Not on file documented as of this encounter Visit Diagnoses Not on filedocumented in this encounter Care Teams Tandem Mill Operator Relationship Specialty Start Date End Date Jeremy Carreon MD [address] [place] [phone] PCP - General Internal Medicine 05/17/19 02/14/23 documented as of this encounter
--- OUTSIDE RECORDS SUMMARY | 2024-08-14 06:10 | XMS_ITS | Data Portability ---
Author Organization [place] [facility] [employer] Address [address] [place] [address] Care Team Providers Care Shoe Maker Name Role Phone MARK ANTHONY TORREZ Solution Developer OMID CANALES Senior Instrumentation Engineer GLORIA SAUNDERS Rn Transitional CHERY VACA Medical Oncologist [phone] MO CARMEN OTHER Assessment Encounter Date Assessment [...] time spent in any separately reportable services. [email or web address] Not available 02/22/2023 17:13:20 03/21/2023 03/21/2023 Medication [...] plan. F/U 12 weeks, sooner if needed [email or web address] Not available 06/14/2023 18:20:43 07/12/2023 07/12/2023 Medication Changes Having significant joint pain along with low back, hip pain. Having notable deficits with self-care and ADL. PT/OT ordered. Increased fall risk. Taking Naproxen BID for pain which has been helping. However, did discuss about NSAIDs and kidney function. Counseled on ensuring to drink appropriate fluid levels. Faxed lab results to feather trimmer. HTN controlled with medication but slightly elevated [...] plan. F/U 12 weeks, sooner if needed [email or web address] Not available 07/13/2023 07:29:53 08/03/2023 08/03/2023 Medication [...] in any separately reportable services. Not available 08/04/2023 07:06:09 Plan of Treatment Reminders Order Date Submit Date Provider Last Modified By Organization Details Last Modified Time Details Appointments None recorded. Lab unlisted lab - complete blood count with auto diff* [address], [place], [address], 4 13:42:47 CMP, serum or plasma [address], [place], [address], 4 13:42:48 magnesium, serum or plasma [address], [place], [address], 4 13:42:49 iron, serum [address], [place], [address], 4 13:42:49 vitamin B12, serum [address], [place], [address], 4 13:42:50 unlisted lab - folate [address], [place], [address], 4 13:42:48 CMP, serum or plasma [address], [place], [address], 3 12:29:59 unlisted lab - complete blood count with auto diff* 2022 023 [email or web address], [address], [place], [address], 3 12:30:00 magnesium, serum or plasma 2022 023 [email or web address], [address], [place], [address], 3 12:29:59 Referral occupation al therapist referral 2023 024 [email or web address] [place], [address], [place], [address], 4 13:43:41 physical therapist referral 2023 024 [email or web address] [place], [address], [place], [address], 4 13:43:24 physical therapist referral 2023 024 [email or web address] [place], [address], [place], [address], 4 13:43:54 dermatolog ist referral - Back of scalp 2022 023 [facility] [place], [address], [place], [address], 3 12:05:49 Procedures None recorded. Surgeries None recorded. Imaging XR, hip + pelvis, unilateral , 4 or more view 2023 024 [facility] ([facility]), [address], [place], [address], 4 14:50:42 XR, sacrum + coccyx, 2 or more view 2023 024 [email or web address] [facility] ([facility]), [address], [place], [address], 4 15:47:01 XR, lumbar spine, 2 view 2023 024 [email or web address] [facility] ([facility]), [address], [place], [address], 4 15:47:13 XR, thoracic spine, 3 view 2022 023 [email or web address] [facility] ([facility]), [address], [place], [address], 3 19:33:44 Medication Orders None recorded. Patient TargetsNo targets recorded. Patient Instructions Encounter Date Encounter Id Patient Instructions Last Modified By Organization Details Last Modified Time 02/21/2023 [id number] care plan* [email or web address] Not available 02/04 16:44:58 Reason for Referral Rn Transitional Referral for N eoplasm of uncertain behavior [...] [facility] [address], [place], [address], 03/02/2023 12:21:36 03/01/20 23 03/01/2023 COMPL ETE BLOOD COUNT WITH AUTO DIFF* RBC 4.97 10E6/ uL 4.60-6 .00 Not Available [facility] [address], [place], [address], 03/02/2023 12:21:36 03/01/20 23 03/01/2023 COMPL ETE BLOOD COUNT WITH AUTO DIFF* HGB 15.4 g/dL 14.0-1 8.0 Not Available [facility] [address], [place], [address], 03/02/2023 12:21:36 03/01/20 23 03/01/2023 COMPL ETE BLOOD COUNT WITH AUTO DIFF* HCT 45.7 % 40.0-5 4.0 Not Available [facility] [address], [place], [address], 03/02/2023 12:21:36 03/01/20 23 03/01/2023 COMPL ETE BLOOD COUNT WITH AUTO DIFF* MCV 92 fL 80-100 Not Available [facility] [address], [place], [address], 03/02/2023 12:21:36 03/01/20 23 03/01/2023 COMPL ETE BLOOD COUNT WITH AUTO DIFF* MCH 31 pg 26-32 Not Available [facility] [address], [place], [address], 03/02/2023 12:21:36 03/01/20 23 03/01/2023 COMPL ETE BLOOD COUNT WITH AUTO DIFF* MCHC 34 g/dL 32-36 Not Available [facility] [address], [place], [address], 03/02/2023 12:21:36 03/01/20 23 03/01/2023 COMPL ETE BLOOD COUNT WITH AUTO DIFF* RDW 13.6 % 11.5-1 4.5 Not Available [facility] [address], [place], [address], 03/02/2023 12:21:36 09/26/20 23 03/01/2023 COMPL ETE BLOOD COUNT WITH AUTO DIFF* plt 136 10E3/ uL 150-45 0 low Not Available [facility] [address], [place], [address], 03/02/2023 12:21:36 03/01/20 23 03/01/2023 COMPL ETE BLOOD COUNT WITH AUTO DIFF* neut% 68.3 % 50.0-7 0.0 Not Available [facility] [address], [place], [address], 03/02/2023 12:21:36 03/01/20 23 03/01/2023 COMPL ETE BLOOD COUNT WITH AUTO DIFF* lymph% 22.1 % 18.0-4 2.0 Not Available [facility] [address], [place], [address], 03/02/2023 12:21:36 03/01/20 23 03/01/2023 COMPL ETE BLOOD COUNT WITH AUTO DIFF* mono% 5.9 % 2.0-11 .0 Not Available [facility] [address], [place], [address], 03/02/2023 12:21:36 03/01/20 23 03/01/2023 COMPL ETE BLOOD COUNT WITH AUTO DIFF* eos% 2.6 % 1.0-3. 0 Not Available [facility] [address], [place], [address], 03/02/2023 12:21:36 03/01/20 23 03/01/2023 COMPL ETE BLOOD COUNT WITH AUTO DIFF* baso% 0.8 % 0.0-2. 0 Not Available [facility] [address], [place], [address], 03/02/2023 12:21:36 03/01/20 23 03/01/2023 COMPL ETE BLOOD COUNT WITH AUTO DIFF* Ig% 0.3 % 0.0-0. 6 Not Available [facility] [address], [place], [address], 03/02/2023 12:21:36 03/01/20 23 03/01/2023 COMPL ETE BLOOD COUNT WITH AUTO DIFF* neut# 4.53 10E3/ uL 2.30-8 .10 Not Available [facility] [address], [place], [address], 03/02/2023 12:21:36 03/01/20 23 03/01/2023 COMPL ETE BLOOD COUNT WITH AUTO DIFF* lymph# 1.46 10E3/ uL 0.80-4 .80 Not Available [facility] [address], [place], [address], 03/02/2023 12:21:36 03/01/20 23 03/01/2023 COMPL ETE BLOOD COUNT WITH AUTO DIFF* mono# 0.39 10E3/ uL 0.45-1 .30 low Not Available [facility] [address], [place], [address], 03/02/2023 12:21:36 03/01/20 23 03/01/2023 COMPL ETE BLOOD COUNT WITH AUTO DIFF* eos# 0.17 10E3/ uL 0.00-0 .40 Not Available [facility] [address], [place], [address], 03/02/2023 12:21:36 03/01/20 23 03/01/2023 COMPL ETE BLOOD COUNT WITH AUTO DIFF* baso# 0.05 10E3/ uL 0.00-0 .10 Not Available [facility] [address], [place], [address], 03/02/2023 12:21:36 03/01/20 23 03/01/2023 COMPL ETE BLOOD COUNT WITH AUTO DIFF* Ig# 0.02 10E3/ uL 0.00-0 .09 Not Available [facility] [address], [place], [address], 03/02/2023 12:21:36 03/01/20 23 03/01/2023 COMPR EHENS [...] Available [facility] [address], [place], [address], 03/02/2023 12:21:37 03/01/20 23 03/01/2023 COMPR EHENS DAVID METAB OLIC PANEL * BUN 16 mg/dL 8-23 Not Available [facility] [address], [place], [address], 03/02/2023 12:21:37 03/01/20 23 03/01/2023 COMPR EHENS DAVID METAB OLIC PANEL * calcium 8.7 mg/dL 8.8-10 .2 low Not Available [facility] [address], [place], [address], 03/02/2023 12:21:37 03/01/20 23 03/01/2023 COMPR EHENS DAVID METAB OLIC PANEL * creatinine 1.14 mg/dL 0.80-1 .30 Not Available [facility] [address], [place], [address], 03/02/2023 12:21:37 03/01/20 23 03/01/2023 COMPR EHENS DAVID METAB OLIC PANEL * sodium 143 mmol/ L 136-14 5 Not Available [facility] [address], [place], [address], 03/02/2023 12:21:37 03/01/20 23 03/01/2023 COMPR EHENS DAVID METAB OLIC PANEL * potassium 4.5 mmol/ L 3.5-5. 1 Not Available [facility] [address], [place], [address], 03/02/2023 12:21:37 03/01/20 23 03/01/2023 COMPR EHENS DAVID METAB OLIC PANEL * chloride 106 mEq/L 98-107 Not Available [facility] [address], [place], [address], 03/02/2023 12:21:37 03/01/20 23 03/01/2023 COMPR EHENS DAVID METAB OLIC PANEL * carbon dioxide 28 mmol/ L 23-30 Not Available [facility] [address], [place], [address], 03/02/2023 12:21:37 03/01/20 23 03/01/2023 COMPR EHENS DAVID METAB OLIC PANEL * total protein 5.9 g/dL 6.2-8. 1 low Not Available [facility] [address], [place], [address], 03/02/2023 12:21:37 03/01/20 23 03/01/2023 COMPR EHENS DAVID METAB OLIC PANEL * albumin 3.7 g/dL 3.2-4. 6 Not Available [facility] [address], [place], [address], 03/02/2023 12:21:37 03/01/20 23 03/01/2023 COMPR EHENS DAVID METAB OLIC PANEL * globulin 2.2 g/dL 2.3-3. 4 low Not Available [facility] [address], [place], [address], 03/02/2023 12:21:37 03/01/20 23 03/01/2023 COMPR EHENS DAVID METAB OLIC PANEL * A/G ratio 1.7 g/dL 0.8-2. 0 Not Available [facility] [address], [place], [address], 03/02/2023 12:21:37 03/01/20 23 03/01/2023 COMPR EHENS DAVID METAB OLIC PANEL * alkaline phosphatase 80 U/L 30-120 Not Available [facility] [address], [place], [address], 03/02/2023 12:21:37 03/01/20 23 03/01/2023 COMPR EHENS DAVID METAB OLIC PANEL * ALT (SGPT) 17 U/L 13-40 Not Available [facility] [address], [place], [address], 03/02/2023 12:21:37 03/01/20 23 03/01/2023 COMPR EHENS DAVID METAB OLIC PANEL * AST (SGOT) 15 U/L 19-48 low Not Available [facility] [address], [place], [address], 03/02/2023 12:21:37 03/01/20 23 03/01/2023 COMPR EHENS DAVID METAB OLIC PANEL * bilirubin, total 0.79 mg/dL 0.20-1 .10 Not Available [facility] [address], [place], [address], 03/02/2023 12:21:37 03/01/20 23 03/01/2023 COMPR EHENS [...] Available [facility] [address], [place], [address], 03/02/2023 12:21:37 03/01/2003/01/2023 MAGNE SIUM* magnesium 2.00 mg/dL 1.60-2 .40 Not Available [facility] [address], [place], [address], 03/02/2023 12:21:37 06/23/19 24 06/23/2023 COMPL ETE BLOOD COUNT WITH AUTO DIFF* WBC 7.19 10E3/ uL 4.50-1 1.50 Not Available [facility] [address], [place], [address], 06/24/2023 13:42:47 06/23/19 24 06/23/2023 COMPL ETE BLOOD COUNT WITH AUTO DIFF* RBC 4.55 10E6/ uL 4.60-6 .00 low Not Available [facility] [address], [place], [address], 06/24/2023 13:42:47 06/23/19 24 06/23/2023 COMPL ETE BLOOD COUNT WITH AUTO DIFF* HGB 13.8 g/dL 14.0-1 8.0 low Not Available [facility] [address], [place], [address], 06/24/2023 13:42:47 06/23/19 24 06/23/2023 COMPL ETE BLOOD COUNT WITH AUTO DIFF* HCT 40.5 % 40.0-5 4.0 Not Available [facility] [address], [place], [address], 06/24/2023 13:42:47 06/23/19 24 06/23/2023 COMPL ETE BLOOD COUNT WITH AUTO DIFF* MCV 89 fL 80-100 Not Available [facility] [address], [place], [address], 06/24/2023 13:42:47 06/23/19 24 06/23/2023 COMPL ETE BLOOD COUNT WITH AUTO DIFF* MCH 30 pg 26-32 Not Available [facility] [address], [place], [address], 06/24/2023 13:42:47 06/23/19 24 06/23/2023 COMPL ETE BLOOD COUNT WITH AUTO DIFF* MCHC 34.1 g/dL 32.0-3 6.0 Not Available [facility] [address], [place], [address], 06/24/2023 13:42:47 06/23/19 24 06/23/2023 COMPL ETE BLOOD COUNT WITH AUTO DIFF* RDW 13.2 % 11.5-1 4.5 Not Available [facility] [address], [place], [address], 06/24/2023 13:42:47 06/23/19 24 06/23/2023 COMPL ETE BLOOD COUNT WITH AUTO DIFF* plt 129 10E3/ uL 150-45 0 low Not Available [facility] [address], [place], [address], 06/24/2023 13:42:47 06/23/19 24 06/23/2023 COMPL ETE BLOOD COUNT WITH AUTO DIFF* neut% 71.7 % 50.0-7 0.0 high Not Available [facility] [address], [place], [address], 06/24/2023 13:42:47 06/23/19 24 06/23/2023 COMPL ETE BLOOD COUNT WITH AUTO DIFF* lymph% 19.1 % 18.0-4 2.0 Not Available [facility] [address], [place], [address], 06/24/2023 13:42:47 06/23/19 24 06/23/2023 COMPL ETE BLOOD COUNT WITH AUTO DIFF* mono% 5.7 % 2.0-11 .0 Not Available [facility] [address], [place], [address], 06/24/2023 13:42:47 06/23/19 24 06/23/2023 COMPL ETE BLOOD COUNT WITH AUTO DIFF* eos% 2.5 % 1.0-3. 0 Not Available [facility] [address], [place], [address], 06/24/2023 13:42:47 06/23/19 24 06/23/2023 COMPL ETE BLOOD COUNT WITH AUTO DIFF* baso% 0.6 % 0.0-2. 0 Not Available [facility] [address], [place], [address], 06/24/2023 13:42:47 06/23/19 24 06/23/2023 COMPL ETE BLOOD COUNT WITH AUTO DIFF* Ig% 0.4 % 0.0-0. 6 Not Available [facility] [address], [place], [address], 06/24/2023 13:42:47 06/23/19 24 06/23/2023 COMPL ETE BLOOD COUNT WITH AUTO DIFF* neut# 5.16 10E3/ uL 2.30-8 .10 Not Available [facility] [address], [place], [address], 06/24/2023 13:42:47 06/23/19 24 06/23/2023 COMPL ETE BLOOD COUNT WITH AUTO DIFF* lymph# 1.37 10E3/ uL 0.80-4 .80 Not Available [facility] [address], [place], [address], 06/24/2023 13:42:47 06/23/19 24 06/23/2023 COMPL ETE BLOOD COUNT WITH AUTO DIFF* mono# 0.41 10E3/ uL 0.45-1 .30 low Not Available [facility] [address], [place], [address], 06/24/2023 13:42:47 06/23/19 24 06/23/2023 COMPL ETE BLOOD COUNT WITH AUTO DIFF* eos# 0.18 10E3/ uL 0.00-0 .40 Not Available [facility] [address], [place], [address], 06/24/2023 13:42:47 06/23/19 24 06/23/2023 COMPL ETE BLOOD COUNT WITH AUTO DIFF* baso# 0.04 10E3/ uL 0.00-0 .10 Not Available [facility] [address], [place], [address], 06/24/2023 13:42:47 06/23/19 24 06/23/2023 COMPL ETE BLOOD COUNT WITH AUTO DIFF* Ig# 0.03 10E3/ uL 0.00-0 .09 Not Available [facility] [address], [place], [address], 06/24/2023 13:42:47 06/23/19 24 06/23/2023 COMPR EHENS [...] es). Not Available [facility] [address], [place], [address], 06/24/2023 13:42:48 06/23/19 24 06/23/2023 COMPR EHENS DAVID METAB OLIC PANEL * BUN 26 mg/dL 8-23 high Not Available [facility] [address], [place], [address], 06/24/2023 13:42:48 06/23/19 24 06/23/2023 COMPR EHENS DAVID METAB OLIC PANEL * calcium 8.5 mg/dL 8.8-10 .2 low Not Available [facility] [address], [place], [address], 06/24/2023 13:42:48 06/23/19 24 06/23/2023 COMPR EHENS DAVID METAB OLIC PANEL * creatinine 1.31 mg/dL 0.80-1 .30 high Not Available [facility] [address], [place], [address], 06/24/2023 13:42:48 06/23/19 24 06/23/2023 COMPR EHENS DAVID METAB OLIC PANEL * sodium 142 mmol/ L 136-14 5 Not Available [facility] [address], [place], [address], 06/24/2023 13:42:48 06/23/19 24 06/23/2023 COMPR EHENS DAVID METAB OLIC PANEL * potassium 4.3 mmol/ L 3.5-5. 1 Not Available [facility] [address], [place], [address], 06/24/2023 13:42:48 06/23/19 24 06/23/2023 COMPR EHENS DAVID METAB OLIC PANEL * chloride 107 mEq/L 98-107 Not Available [facility] [address], [place], [address], 06/24/2023 13:42:48 06/23/19 24 06/23/2023 COMPR EHENS DAVID METAB OLIC PANEL * carbon dioxide 25 mmol/ L 23-30 Not Available [facility] [address], [place], [address], 06/24/2023 13:42:48 06/23/19 24 06/23/2023 COMPR EHENS DAVID METAB OLIC PANEL * total protein 5.0 g/dL 6.2-8. 1 low Not Available [facility] [address], [place], [address], 06/24/2023 13:42:48 06/23/19 24 06/23/2023 COMPR EHENS DAVID METAB OLIC PANEL * albumin 3.1 g/dL 3.2-4. 6 low Not Available [facility] [address], [place], [address], 06/24/2023 13:42:48 06/23/19 24 06/23/2023 COMPR EHENS DAVID METAB OLIC PANEL * globulin 1.9 g/dL 2.3-3. 4 low Not Available [facility] [address], [place], [address], 06/24/2023 13:42:48 06/23/19 24 06/23/2023 COMPR EHENS DAVID METAB OLIC PANEL * A/G ratio 1.6 g/dL 0.8-2. 0 Not Available [facility] [address], [place], [address], 06/24/2023 13:42:48 06/23/19 24 06/23/2023 COMPR EHENS DAVID METAB OLIC PANEL * alkaline phosphatase 66 U/L 30-120 Not Available [facility] [address], [place], [address], 06/24/2023 13:42:48 06/23/19 24 06/23/2023 COMPR EHENS DAVID METAB OLIC PANEL * ALT (SGPT) 15 U/L 13-40 Not Available [facility] [address], [place], [address], 06/24/2023 13:42:48 06/23/19 24 06/23/2023 COMPR EHENS DAVID METAB OLIC PANEL * AST (SGOT) 13 U/L 19-48 low Not Available [facility] [address], [place], [address], 06/24/2023 13:42:48 06/23/19 24 06/23/2023 COMPR EHENS DAVID METAB OLIC PANEL * bilirubin, total 0.69 mg/dL 0.20-1 .10 Not Available [facility] [address], [place], [address], 06/24/2023 13:42:48 06/23/19 24 06/23/2023 COMPR EHENS [...] [facility] [address], [place], [address], 06/24/2023 13:42:48 06/23/19 24 06/23/2023 FOLAT E* folate 13.8 NG/mL 8.6-58 .9 Not Available [facility] [address], [place], [address], 06/24/2023 13:42:48 06/23/19 24 06/23/2023 IRON* iron 89 ug/dL 65-175 Intox icate d Child : 280 - 2250 ug/dL Fatal ly Poiso benny Child : >1800 ug/dL Intox icate d Child : 280 - 2250 ug/dL Fatal ly Poiso benny Child : >1800 ug/dL Not Available [facility] [address], [place], [address], 06/24/2023 13:42:49 06/23/19 24 06/23/2023 MAGNE SIUM* magnesium 1.80 mg/dL 1.60-2 .40 Not Available [facility] [address], [place], [address], 06/24/2023 13:42:49 06/23/19 24 06/23/2023 VITAM IN B12* vitamin B12 257 pg/mL 250-11 00 Not Available [facility] [address], [place], [address], 06/24/2023 13:42:50 06/23/19 24 06/23/2023 COMPL ETE BLOOD COUNT WITH AUTO DIFF* WBC 7.19 10E3/ uL 4.50-1 1.50 Not Available [facility] [address], [place], [address], 06/24/2023 15:10:26 06/23/19 24 06/23/2023 COMPL ETE BLOOD COUNT WITH AUTO DIFF* RBC 4.55 10E6/ uL 4.60-6 .00 low Not Available [facility] [address], [place], [address], 06/24/2023 15:10:26 06/23/19 24 06/23/2023 COMPL ETE BLOOD COUNT WITH AUTO DIFF* HGB 13.8 g/dL 14.0-1 8.0 low Not Available [facility] [address], [place], [address], 06/24/2023 15:10:26 06/23/19 24 06/23/2023 COMPL ETE BLOOD COUNT WITH AUTO DIFF* HCT 40.5 % 40.0-5 4.0 Not Available [facility] [address], [place], [address], 06/24/2023 15:10:26 06/23/19 24 06/23/2023 COMPL ETE BLOOD COUNT WITH AUTO DIFF* MCV 89 fL 80-100 Not Available [facility] [address], [place], [address], 06/24/2023 15:10:26 06/23/19 24 06/23/2023 COMPL ETE BLOOD COUNT WITH AUTO DIFF* MCH 30 pg 26-32 Not Available [facility] [address], [place], [address], 06/24/2023 15:10:26 06/23/19 24 06/23/2023 COMPL ETE BLOOD COUNT WITH AUTO DIFF* MCHC 34.1 g/dL 32.0-3 6.0 Not Available [facility] [address], [place], [address], 06/24/2023 15:10:26 06/23/19 24 06/23/2023 COMPL ETE BLOOD COUNT WITH AUTO DIFF* RDW 13.2 % 11.5-1 4.5 Not Available [facility] [address], [place], [address], 06/24/2023 15:10:26 06/23/19 24 06/23/2023 COMPL ETE BLOOD COUNT WITH AUTO DIFF* plt 129 10E3/ uL 150-45 0 low Not Available [facility] [address], [place], [address], 06/24/2023 15:10:26 06/23/19 24 06/23/2023 COMPL ETE BLOOD COUNT WITH AUTO DIFF* neut% 71.7 % 50.0-7 0.0 high Not Available [facility] [address], [place], [address], 06/24/2023 15:10:26 06/23/19 24 06/23/2023 COMPL ETE BLOOD COUNT WITH AUTO DIFF* lymph% 19.1 % 18.0-4 2.0 Not Available [facility] [address], [place], [address], 06/24/2023 15:10:26 06/23/19 24 06/23/2023 COMPL ETE BLOOD COUNT WITH AUTO DIFF* mono% 5.7 % 2.0-11 .0 Not Available [facility] [address], [place], [address], 06/24/2023 15:10:26 06/23/19 24 06/23/2023 COMPL ETE BLOOD COUNT WITH AUTO DIFF* eos% 2.5 % 1.0-3. 0 Not Available [facility] [address], [place], [address], 06/24/2023 15:10:26 06/23/19 24 06/23/2023 COMPL ETE BLOOD COUNT WITH AUTO DIFF* baso% 0.6 % 0.0-2. 0 Not Available [facility] [address], [place], [address], 06/24/2023 15:10:26 06/23/19 24 06/23/2023 COMPL ETE BLOOD COUNT WITH AUTO DIFF* Ig% 0.4 % 0.0-0. 6 Not Available [facility] [address], [place], [address], 06/24/2023 15:10:26 06/23/19 24 06/23/2023 COMPL ETE BLOOD COUNT WITH AUTO DIFF* neut# 5.16 10E3/ uL 2.30-8 .10 Not Available [facility] [address], [place], [address], 06/24/2023 15:10:26 06/23/19 24 06/23/2023 COMPL ETE BLOOD COUNT WITH AUTO DIFF* lymph# 1.37 10E3/ uL 0.80-4 .80 Not Available [facility] [address], [place], [address], 06/24/2023 15:10:26 06/23/19 24 06/23/2023 COMPL ETE BLOOD COUNT WITH AUTO DIFF* mono# 0.41 10E3/ uL 0.45-1 .30 low Not Available [facility] [address], [place], [address], 06/24/2023 15:10:26 06/23/19 24 06/23/2023 COMPL ETE BLOOD COUNT WITH AUTO DIFF* eos# 0.18 10E3/ uL 0.00-0 .40 Not Available [facility] [address], [place], [address], 06/24/2023 15:10:26 06/23/19 24 06/23/2023 COMPL ETE BLOOD COUNT WITH AUTO DIFF* baso# 0.04 10E3/ uL 0.00-0 .10 Not Available [facility] [address], [place], [address], 06/24/2023 15:10:26 06/23/19 24 06/23/2023 COMPL ETE BLOOD COUNT WITH AUTO DIFF* Ig# 0.03 10E3/ uL 0.00-0 .09 Not Available [facility] [address], [place], [address], 06/24/2023 15:10:26 06/23/19 24 06/23/2023 FOLAT E* folate 13.8 NG/mL 8.6-58 .9 Not Available [facility] [address], [place], [address], 06/24/2023 15:10:27 10/06/19 24 10/06/2023 COMPL ETE BLOOD COUNT WITH AUTO DIFF* WBC 6.30 10E3/ uL 4.50-1 1.50 Not Available [facility] [address], [place], [address], 10/07/2023 17:44:26 10/06/19 24 10/06/2023 COMPL ETE BLOOD COUNT WITH AUTO DIFF* RBC 4.44 10E6/ uL 4.60-6 .00 low Not Available [facility] [address], [place], [address], 10/07/2023 17:44:26 10/06/19 24 10/06/2023 COMPL ETE BLOOD COUNT WITH AUTO DIFF* HGB 13.8 g/dL 14.0-1 8.0 low Not Available [facility] [address], [place], [address], 10/07/2023 17:44:26 10/06/19 24 10/06/2023 COMPL ETE BLOOD COUNT WITH AUTO DIFF* HCT 42.8 % 40.0-5 4.0 Not Available [facility] [address], [place], [address], 10/07/2023 17:44:26 10/06/19 24 10/06/2023 COMPL ETE BLOOD COUNT WITH AUTO DIFF* MCV 96 fL 80-100 Not Available [facility] [address], [place], [address], 10/07/2023 17:44:26 10/06/19 24 10/06/2023 COMPL ETE BLOOD COUNT WITH AUTO DIFF* MCH 31 pg 26-32 Not Available [facility] [address], [place], [address], 10/07/2023 17:44:26 10/06/19 24 10/06/2023 COMPL ETE BLOOD COUNT WITH AUTO DIFF* MCHC 32.2 g/dL 32.0-3 6.0 Not Available [facility] [address], [place], [address], 10/07/2023 17:44:26 10/06/19 24 10/06/2023 COMPL ETE BLOOD COUNT WITH AUTO DIFF* RDW 14.6 % 11.5-1 4.5 high Not Available [facility] [address], [place], [address], 10/07/2023 17:44:26 10/06/19 24 10/06/2023 COMPL ETE BLOOD COUNT WITH AUTO DIFF* plt 111 10E3/ uL 150-45 0 low Not Available [facility] [address], [place], [address], 10/07/2023 17:44:26 10/06/19 24 10/06/2023 COMPL ETE BLOOD COUNT WITH AUTO DIFF* neut% 59.4 % 50.0-7 0.0 Not Available [facility] [address], [place], [address], 10/07/2023 17:44:26 10/06/19 24 10/06/2023 COMPL ETE BLOOD COUNT WITH AUTO DIFF* lymph% 27.3 % 18.0-4 2.0 Not Available [facility] [address], [place], [address], 10/07/2023 17:44:26 10/06/19 24 10/06/2023 COMPL ETE BLOOD COUNT WITH AUTO DIFF* mono% 8.1 % 2.0-11 .0 Not Available [facility] [address], [place], [address], 10/07/2023 17:44:26 10/06/19 24 10/06/2023 COMPL ETE BLOOD COUNT WITH AUTO DIFF* eos% 4.4 % 1.0-3. 0 high Not Available [facility] [address] [address]pos, [place], [address], 10/07/2023 17:44:26 10/06/19 24 10/06/2023 COMPL ETE BLOOD COUNT WITH AUTO DIFF* baso% 0.6 % 0.0-2. 0 Not Available [employer] [address], [place], [address], 10/07/2023 17:44:26 10/06/19 24 10/06/2023 COMPL ETE BLOOD COUNT WITH AUTO DIFF* Ig% 0.2 % 0.0-0. 6 Not Available [employer] [address], [place], [address], 10/07/2023 17:44:26 10/06/19 24 10/06/2023 COMPL ETE BLOOD COUNT WITH AUTO DIFF* neut# 3.74 10E3/ uL 2.30-8 .10 Not Available [employer] [address], [place], [address], 10/07/2023 17:44:26 10/06/19 24 10/06/2023 COMPL ETE BLOOD COUNT WITH AUTO DIFF* lymph# 1.72 10E3/ uL 0.80-4 .80 Not Available [employer] [address], [place], [address], 10/07/2023 17:44:26 10/06/19 24 10/06/2023 COMPL ETE BLOOD COUNT WITH AUTO DIFF* mono# 0.51 10E3/ uL 0.45-1 .30 Not Available [employer] [address], [place], [address], 10/07/2023 17:44:26 10/06/19 24 10/06/2023 COMPL ETE BLOOD COUNT WITH AUTO DIFF* eos# 0.28 10E3/ uL 0.00-0 .40 Not Available [employer] [address], [place], [address], 10/07/2023 17:44:26 10/06/19 24 10/06/2023 COMPL ETE BLOOD COUNT WITH AUTO DIFF* baso# 0.04 10E3/ uL 0.00-0 .10 Not Available [employer] [address], [place], [address], 10/07/2023 17:44:26 10/06/19 24 10/06/2023 COMPL ETE BLOOD COUNT WITH AUTO DIFF* Ig# 0.01 10E3/ uL 0.00-0 .09 Not Available [employer] [address], [place], [address], 10/07/2023 17:44:26 10/06/19 24 10/06/2023 COMPL ETE BLOOD COUNT WITH AUTO DIFF* reflex Smear Review Not Available [facility] [address], [place], [address], 10/07/2023 17:44:26 10/06/19 24 10/06/2023 COMPR EHENS [...] Available [employer] [address], [place], [address], 10/07/2023 17:44:26 10/06/19 24 10/06/2023 COMPR EHENS DAVID METAB OLIC PANEL * BUN 19 mg/dL 8-23 Not Available [facility] [address], [place], [address], 10/07/2023 17:44:26 10/06/19 24 10/06/2023 COMPR EHENS DAVID METAB OLIC PANEL * calcium 8.2 mg/dL 8.8-10 .2 low Not Available [employer] [address], [place], [address], 10/07/2023 17:44:26 10/06/19 24 10/06/2023 COMPR EHENS DAVID METAB OLIC PANEL * creatinine 1.05 mg/dL 0.80-1 .30 Not Available [facility] [address], [place], [address], 10/07/2023 17:44:26 10/06/19 24 10/06/2023 COMPR EHENS DAVID METAB OLIC PANEL * sodium 142 mmol/ L 136-14 5 Not Available [facility] [address], [place], [address], 10/07/2023 17:44:26 10/06/19 24 10/06/2023 COMPR EHENS DAVID METAB OLIC PANEL * potassium 4.2 mmol/ L 3.5-5. 1 Not Available [facility] [address], [place], [address], 10/07/2023 17:44:26 10/06/19 24 10/06/2023 COMPR EHENS DAVID METAB OLIC PANEL * chloride 108 mEq/L 98-107 high Not Available [facility] [address], [place], [address], 10/07/2023 17:44:26 10/06/19 24 10/06/2023 COMPR EHENS DAVID METAB OLIC PANEL * carbon dioxide 26 mmol/ L 23-30 Not Available [facility] [address], [place], [address], 10/07/2023 17:44:26 10/06/19 24 10/06/2023 COMPR EHENS DAVID METAB OLIC PANEL * total protein 4.9 g/dL 6.2-8. 1 low Not Available [facility] [address], [place], [address], 10/07/2023 17:44:26 10/06/19 24 10/06/2023 COMPR EHENS DAVID METAB OLIC PANEL * albumin 2.9 g/dL 3.2-4. 6 low Not Available [facility] [address], [place], [address], 10/07/2023 17:44:26 10/06/19 24 10/06/2023 COMPR EHENS DAVID METAB OLIC PANEL * globulin 2.0 g/dL 2.3-3. 4 low Not Available [facility] [address], [place], [address], 10/07/2023 17:44:26 10/06/19 24 10/06/2023 COMPR EHENS DAVID METAB OLIC PANEL * A/G ratio 1.5 g/dL 0.8-2. 0 Not Available [facility] [address], [place], [address], 10/07/2023 17:44:26 10/06/19 24 10/06/2023 COMPR EHENS DAVID METAB OLIC PANEL * alkaline phosphatase 73 U/L 30-120 Not Available [facility] [address], [place], [address], 10/07/2023 17:44:26 10/06/19 24 10/06/2023 COMPR EHENS DAVID METAB OLIC PANEL * ALT (SGPT) 13 U/L 13-40 Not Available [facility] [address], [place], [address], 10/07/2023 17:44:26 10/06/19 24 10/06/2023 COMPR EHENS DAVID METAB OLIC PANEL * AST (SGOT) 12 U/L 19-48 low Not Available [facility] [address], [place], [address], 10/07/2023 17:44:26 10/06/19 24 10/06/2023 COMPR EHENS DAVID METAB OLIC PANEL * bilirubin, total 0.97 mg/dL 0.20-1 .10 Not Available [facility] [address], [place], [address], 10/07/2023 17:44:26 10/06/19 24 10/06/2023 COMPR EHENS [...] Not Available [facility] [address], [place], [address], 10/07/2023 17:44:26 06/15/19 24 06/15/2023 XR, hip + pelvi s, unila teral , 4 or more view No observ ation record ed. [facility] [address] [facility], [place], [address], 07/13/2023 07:14:48 Result Notes None recorded. Problems Name Problem SNOMED Code Status Onset Date Resolution Date Notes Provider Name and Address Organization Details Recorded Time Essential hypertensio n 68734849 Active 2022 YANIV Arias, PMHNP-BC [address] [place], [address], [place] - [facility] 18:14:22 Neuropathy 982127013 Active 2022 YANIV Arias, PMHNP-BC [address], [place], [address], [place] [facility] 4 18:14:22 Obstructive sleep apnea of adult 9606088294446 Active 2023 FARHEEN AriasP-BC, PMHNP-BC [address], [place], [address], [place] [facility] 4 07:25:43 Osteoarthri tis of multiple joints 529820228 Active 2023 Cristy Dawkins [employer]LL CLEANER-BC, PMHNP-BC [address], [place], [address], [facility] - [facility] 4 07:06:33 Low back pain 547319964 Active 2023 FARHEEN AriasP-BC, PMHNP-BC [address], [place], [address], [facility] - [facility] 4 07:06:33 Problem Notes None recorded. Procedures Surgical History None recorded. Imaging Results Imaging Date Name Status LastModified by Organiz ation Details LastModified Time 06/15/2023 XR, hip + pelvis, unilateral , 4 or more view completed [email or web address] [facility] [address], [place], [address], 07/13/2023 07:14:48 Procedure Notes None recorded. Medical Equipment None Reported. Allergies Allergen ID Allergen Name Allergen Category Reaction Reaction Severity Criticality Documentation Date Start Date Code Code System Note Provider Name and Address Organization Details Recorded Time 6753 amlodipin e medicatio n Not available Not available Not available 02/22/2023 93225 RxNorm Shamyra Tank null, [facility] 3 16:46:55 6754 hydrochlo rothiazid e medicatio n Not available Not available Not available 02/22/2023 5487 RxNorm Shamyra Tank null, [place] - [facility] 3 16:47:12 Medications Name Sig [...] Arterial blood by Pulse oximetry Body temperature Pain severity - 0-10 verbal numeric rating [Score] - Reported Systolic blood pressure Diastolic blood pressure Provider Name and Address Organization Details Last Updated DateTime 3 53 /min 18 /min 97 % 97 % 97 [degF] 0 122 mm[Hg] 68 mm[Hg] Sandoval SANDOVAL - [facility] 3 15:23:32 Date Recorded Body height Body mass index (BMI) Body weight Provider Name and Address Organization Details Last Updated DateTime 02/21/2023 180.34 cm 26.4 kg/m2 50684.96 g Crystal L. Stone, ROLL CLEANER-BC, PMHNP-BC [address] [place], [address], [facility] 02/22/2023 16:50:28 Date Recorded Body height Heart rate Respiratory rate Oxygen saturation Oxygen saturation in Arterial blood by Pulse oximetry Body temperature Pain severity - 0-10 verbal numeric rating [Score] - Reported Systolic blood pressure Diastolic blood pressure Provider Name and Address Organization Details Last Updated DateTime 3 180.34 cm 55 /min 18 /min 97 % 97 % 97.2 [degF] 0 140 mm[Hg] 78 mm[Hg] Sandoval [facility] 3 12:12:20 Date Recorded Body height Heart rate Respiratory rate Oxygen saturation Oxygen saturation in Arterial blood by Pulse oximetry Body temperature Pain severity - 0-10 verbal numeric rating [Score] - Reported Systolic blood pressure Diastolic blood pressure Provider Name and Address Organization Details Last Updated DateTime 3 180.34 cm 57 /min 16 /min 97 % 97 % 97.6 [degF] 0 148 mm[Hg] 80 mm[Hg] Sandoval [facility] Tai [facility] 3 11:09:11 Date Recorded Body height Heart rate Respiratory rate Oxygen saturation Oxygen saturation in Arterial blood by Pulse oximetry Body temperature Pain severity - 0-10 verbal numeric rating [Score] - Reported Systolic blood pressure Diastolic blood pressure Provider Name and Address Organization Details Last Updated DateTime 4 180.34 cm 55 /min 18 /min 97 % 97 % 97.4 [degF] 0 130 mm[Hg] 86 mm[Hg] Sandoval Clarke [facility] 4 12:59:18 Date Recorded Body height Heart rate Respiratory rate Oxygen saturation Oxygen saturation in Arterial blood by Pulse oximetry Body temperature Pain severity - 0-10 verbal numeric rating [Score] - Reported Systolic blood pressure Diastolic blood pressure Provider Name and Address Organization Details Last Updated DateTime 4 180.34 cm 58 /min 18 /min 97 % 97 % 98.1 [degF] 0 152 mm[Hg] 82 mm[Hg] Sandoval [place] LORI [facility] 4 14:55:21 Date Recorded Body height Heart rate Respiratory rate Oxygen saturation Oxygen saturation in Arterial blood by Pulse oximetry Body temperature Pain severity - 0-10 verbal numeric rating [Score] - Reported Systolic blood pressure Diastolic blood pressure Provider Name and Address Organization Details Last Updated DateTime 4 180.34 cm 60 /min 16 /min 97 % 97 % 97.7 [degF] 0 144 mm[Hg] 82 mm[Hg] Sandoval Clarke [facility] 4 09:05:20 Social History Question Answer Notes LastModified by Organizat ion Details LastModified Time Tobacco Smoking Status [facility] Sm[email or web address] 02/22/2023 16:48:48 Do You Have An Advance Directive? Yes [email or web address] Information not available 02/22/2023 What Is Your Level Of Alcohol Consumption? None [email or web address] Information not available 02/22/2023 Are You Blind Or Do You Have Difficulty Seeing? No [email or web address] Information not available 02/22/2023 Is Blood Transfusion Acceptable In An Emergency? Yes [email or web address] Information not available 02/22/2023 What Is Your Level Of Caffeine Consumption? Occasional [email or web address] Information not available 02/22/2023 What Type Of Automobile Sales Consultant Do You Use? None [email or web address] Information not available 02/22/2023 What Is Your Code Status? DNR Information not available 02/03/2023 Are You Currently Employed? No [email or web address] Information not available 02/22/2023 Are You Deaf Or Do You Have Serious Difficulty Hearing? No Information not available 02/22/2023 What Type Of Diet Are You Following? REGULAR [email or web address] Information not available 02/22/2023 What Is The Highest Grade Or Level Of School You Have Completed Or The Highest Degree You Have Received? [id number] [email or web address] Information not available 02/22/2023 Have There Been Any Changes To Your Family Or Social Situation? No [email or web address] Information not available 02/22/2023 When Did You Quit Smoking? 1-5yearssincel adia carreon Information not available 02/22/2023 Are There Any Guns Present In Your Home? No [email or web address] Information not available 02/22/2023 Do You Have A Medical Power Of Splicing Machine Operator? Yes Miguel Galaviz (son-in-la w) Information not available 02/03/2023 What Was The Date Of Your Most Recent Tobacco Screening? 02/21/2023 [email or web address] Information not available 02/22/2023 How Many Children Do You Have? 0 [email or web address] Information not available 02/22/2023 What Is Your Current Pack Years? [email or web address] Information not available 02/22/2023 Do You Have Any Pets? No [email or web address] Information not available 02/22/2023 What Is Your Relationship Status? [email or web address] Information not available 02/22/2023 Do You Use Your Seat Belt Or Car Seat Routinely? Yes [email or web address] Information not available 02/22/2023 Are You Sexually Active? No [email or web address] Information not available 02/22/2023 Do You Have Smoke And Carbon Monoxide Detectors In Your Home? Yes [email or web address] Information not available 02/22/2023 At What Age Did You Start Smoking Tobacco? 20 [email or web address] Information not available 02/22/2023 Are You Passively Exposed To Smoke? No [email or web address] Information not available 02/22/2023 Do You Participate In Social Media? No Information not available 02/22/2023 Do You Feel Stressed (tense, Restless, Nervous, Or Anxious, Or Unable To Sleep At Night)? [id number] [email or web address] Information not available 02/22/2023 Do You Use Any Illicit Or Recreational Drugs? No [email or web address] Information not available 02/22/2023 Do You Use Sunscreen Routinely? No [email or web address] Information not available 02/22/2023 How Many Years Have You Smoked Tobacco? 2 Information not available 02/22/2023 Are You Currently In School? No [email or web address] Information not available 02/22/2023 Do You Have Any Dietary Restrictions? No [email or web address] Information not available 02/22/2023 Do You Or Have You Ever Used Any Other Forms Of Tobacco Or Nicotine? No [email or web address] Information not available 02/22/2023 Sex: Male Functional Status Question Answer Note LastModified by Organizat ion Details LastModified Time Do you have difficulty walking or climbing stairs? Yes [email or web address] Information not available 02/22/2023 Do you have transportation difficulties? No [email or web address] Information not available 02/22/2023 Are you able to walk? YESASSIST [email or web address] Information not available 02/22/2023 Do you have difficulty doing errands alone? Yes [email or web address] Information not available 02/22/2023 Are you able to care for yourself? Yes Information not available 02/22/2023 Do you have difficulty dressing or bathing? No [email or web address] Information not available 02/22/2023 What is your exercise level? None [email or web address] Information not available 02/22/2023 Mental Status Question Answer Note LastModified by Organization D etails LastModified Time Do you have difficulty concentrating, remembering or making decisions? No [email or web address] Information no t available 02/22/2023 Family History Relationship Description Onset Age of this Age Resolved Age Notes LastModified by Organization Details LastModified Time Father Essential hypertension [email or web address] Not available 16:55:25 Medical History Condition Response Hematological Diseases / Disorders Y Genitourinary Diseases / Disorders () Y Gastrointestinal Diseases / Disorders Y Neuropathy Y Neurological Diseases / Disorders Y Obstructive Sleep Apnea Y Hypertension Y Immunizations Vaccine Type Date Status Note Provider Nam e and Address Organization Details Recorded Time Influenza, adjuvanted, quadrivalent, PF 03/10/2023 completed Anamaria Copeland [facility] 03/10/2023 16:06:40 Past Encounters Encounter ID Performer Location Encounter Start Date Encounter Closed Date Diagnosis/Indication Diagnosis SNOMED-CT Code Diagnosis ICD10 Code Diagnosis Note [id number] Cristy ReglaYANIV Marin, PMHNP-YULIANA [facility] [address] [place] [address] 02/21/2023 08:12:18 02/22/2023 19:33:44 Thoracic back pain 516186557 M54.6 Advance care planning 71 8605000 Z71.89 Essential hypertension 99629120 I10 taking medication . labs to eval levels. Neuropathy 487178499 G62 .9 safety when ambulating .numbness. Denies pain. 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 Low back pain 892401292 M54.50 Pain of le ft hip joint 6069892708 38440 M25.552 Essential hypertension 13247349 I10 taking medication . labs to eval levels. Anemia 668255916 D64.9 labs to eval levels. [id number] Cristy Dawkins ROLL CLEANER-, PMHNP- [facility] [address] [place] [address] 07/12/2023 13:37:52 07/14/2023 14:17:46 Low back pain 774979480 M54.50 Essential hypertension 42779473 I10 Osteoarthr itis of multiple joints 155655938 M15.9 Dressing-g rooming self-care deficit 671014043 Z74.1 Obstructiv e sleep apnea of adult 4947354798 103 G47.33 [id number] Cristy Dawkins [facility]-, PMHNP-[facility] [address] [place] [address] 08/03/2023 08:40:09 08/04/2023 08:52:46 Low back pain 712427596 M54.50 Osteoarthr itis of multiple joints 322467517 M15.9 Neuropathy 343421903 G62 .9 Health Concerns Section Related Observation LastModified by Organization Detai ls LastModified Time None Recorded Concern Status LastModified by Organization Details LastModified Time None Recorded Advance Directives Directive Y: Payers Encounter Date Sequence Insurance Name Policy Number Policy Greco Covered Member ID Greco Member ID Guarantor Name 02/21/2023 1 [employer] - G[employer] PLUS (MEDICARE REPLACEMENT HMO) Crow Smith III [id number] Crow Smith 03/21/2023 1 [employer] - [employer]US (MEDICARE REPLACEMENT HMO) Crow Smith III [id number] Crow Smith 06/14/2023 1 [employer] - GOLD PLUS (MEDICARE REPLACEMENT HMO) Crow Smith III [id number] Crow Smith 07/12/2023 1 [employer] - GOLD PLUS (MEDICARE REPLACEMENT HMO) Crow Smith III [id number] Crow Smith 08/03/2023 1 [employer] - GOLD PLUS (MEDICARE REPLACEMENT HMO) Crow Smith III [id number] Crow Smith Notes Date Note Type Note Provider Name and Address Organization Details Recorded Time 02/21/2023 text/html Back PainReporte d bypatient.Location:[facility] Severity:moderate (5-7) Associated Symptoms:no fever; no weak [...] having significant numbness and weakness in BLE. YANIV Arias, PMNIEVES-YULIANA [address] [facility] 02/22/2023 17:35:34 03/21/2023 text/html Back PainReporte d bypatient.Location:[facility] Severity:moderate (5-7) Alleviating Factors:NSAIDS Associated Symptoms:no fever; no weak limbs; no numbness of the legs/feet; no tingling; no incontinence; no shortness of breath; no unintentional weight loss; no chills; no night sweats; no gait instability; no bowel/bladder symptoms; no recent increase in stress Neuropathy - having significant numbness and weakness in BLE. Denies burning.ABN labs noted on routine labs. YANIV Arias, PMNIEVES-BC [address], [place], [address] [place] [address], [facility] 03/21/2023 12:42:48 06/14/2023 [...] blurry vision, dizziness, CP, SOB, or palpitations. Y[facility]IV [facility]as, [facility] [address] [place], [address], [facility] 06/14/2023 18:22:36 07/12/2023 text/html Joint & Soft [...] blurry vision, dizziness, CP, SOB, or palpitations. YANIV Arias, [facility] [address] [place], [address], [facility] 07/13/2023 07:30:33 08/03/2023 [...] difficulties ambulating. Increasing fall risk. Cristy Dawkins, ROLL CLEANER-BC, PMHNP-BC [address] [place], [address], [facility] 08/04/2023 07:07:27
--- OUTSIDE RECORDS SUMMARY | 2024-08-14 06:10 | XMS_ITS | Clinical Summary ---
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 Gender Identity Not on file Sexual Orientation [...] Height 182.9 cm (6') 05/12/2021 2:31 PM PACKING SHED SUPERVISOR Body Mass Index 24.22 05/12/2021 2:31 PM PACKING SHED SUPERVISOR Plan of Treatment Health Maintenance Due Date Last Done Comments DTAP/TDAP/TD VACCINES (1 - Tdap) 1961 PNEUMOCOCCAL VACCINE 50+ YEA RS (1 of 1 - PCV) 1992 02/05/2012 ZOSTER VACCINE (1 of 2) 1992 RSV VACCINE (60+ or ) (1 - 1-dose 75+ series) 2017 INFLUENZA VACCINE (#1) 2024 04/06/2022, 2021 Insurance Sensus Experience [facility] [place] [facility] [place] Address: [address] [address]
--- OUTSIDE RECORDS SUMMARY | 2024-08-14 06:10 | XMS_ITS | Continuity of Care Document ---
Author Organization [facility] Address [address] [place] [address] Phone Care Team Providers Care Plant Pathology Teacher Name Role Phone Mery Galindo Unavailable Unavailable [...] Diagnoses Date Provider Providers Copied on Encounter [facility], [address], [place], [place], [address], tel:[phone] [facility] No Information 0-201 0 Josie Ordonez. [address] [facility] , [address], [place], [place], [facility], [place]. tel:[phone] [facility], [address], [place], [place], [address], [place] tel:[phone] [facility] No Information 9-201 0 Leo Carrillo. [address] [facility] [address], [place], [facility], [place]. tel:[phone] Referring Provider: Gerardo sanchez, [address], [place], [facility]. tel:[phone] Office/outpat ient Visit, [facility], [address] [place] [address] [address], [place], [place], [address], tel:[phone] [facility] No Information Luciano-0 6-201 0 Krishnasamy Gerardo. [address] [facility] [address], [place], [facility], [place]. tel:[phone] Office/outpat ient Visit, [facility], [address] [place] [address] [address], [place], [place], [address], tel:[phone] [facility] No Information Francesco-0 2-200 9 Krishnasamy Gerardo. [address] [place], [place] [address]ate [address], [facility], [place]. tel:[phone] Referring Provider: Gerardo sanchez, [facility] [employer] [employer] [address], [facility]. tel:[phone] [facility], [address] [place], [place] [address], [place], [place], [address], tel:[phone] [facility] No Information Nov-1 6-200 9 Krishnasamy Gerardo. [facility] [employer] [employer] [address], [facility], [place]. tel:[phone] Referring Provider: Gerardo sanchez, [address] [facility] [address], [place], [facility]. tel:[phone] [facility], [address] [place] [address] [address], [place], [place], [address], tel:[phone] [facility] No Information Apr-0 8-200 9 Krishnasamy Gerardo. [facility] [address], [place], [address], [place]. tel:[phone] Referring Provider: Gerardo sanchez, [address] [facility] [address], [place], [address]. tel:[phone] [facility], [address], [place], [place], [address], [place] tel:[phone] [facility] No Information 7[address] Goodrich OD Tonny. [address], [place], [address], [place]. tel:[phone] Family History Family Member Type Diagnosis Age At Onset No Information Payers Payer name Insurance type Covered democrat ID Zahida rainey(s) [employer] [id number] Social History Type Description Quantity Date Captured [...]
--- OUTSIDE RECORDS SUMMARY | 2024-08-14 06:10 | XMS_ITS | Encounter Summary ---
Author Organization [employer] Address [address] 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
--- OUTSIDE RECORDS SUMMARY | 2024-08-14 06:10 | XMS_ITS | Encounter Summary ---
Author Organization [facility] Address [address] [place] [address] Care Team Providers Care Tax Services Specialist Name Role Phone Jeremy Carreon MD Primary Care Provider [phone] Encounter Details Date Type Department Care Team (Latest Contact Info) Description 07/19/2000 Outpatient Historical [facility] SINAI Boyd, MD Aristeo [address] [facility] [address] [place] [address] Unspecified essential hypertension (Primary Dx) Social History Tobacco Use Types Packs/Day Years Used Date Smoking Tobacco: Never Assessed Sex and Gender Information Value Date Recorded Sex Assigned at Not on file 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
--- OUTSIDE RECORDS SUMMARY | 2024-08-14 06:10 | XMS_ITS | Encounter Summary ---
Author Organization [facility] Address [address] [place] [address] Care Team Providers Care Flat Sorting Machine Clerk Name Role Phone Jeremy Carreon MD Primary Care Provider [phone] Encounter Details Date Type Department Care Team (Latest Contact Info) Description 07/08/2006 Outpatient Historical HIS [facility] SINAI Boyd, MD Aristeo [address] 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 MECHANIC Gender Identity Not on file Sexual Orientation Not on file documented as of this encounter Plan of Treatment Not on file documented as of this encounter Procedures Procedure Name Priority Date/Time Associated Diagnosis Comments URINALYSIS WITH MICROSCOPIC Routine 07/08/2006 10:56 AM VIDEO MACHINES MECHANIC TSH WITH REFLEX FT4 AND FT3 Routine 07/08/2006 10:53 AM VIDEO MACHINES MECHANIC CBC WITH DIFFERENTIAL Routine 07/08/2006 10:53 AM VIDEO MACHINES MECHANIC CBC WITH DIFFERENTIAL Routine 07/08/2006 10:53 AM VIDEO MACHINES MECHANIC PSA Routine 07/08/2006 10:53 AM VIDEO MACHINES MECHANIC LIPID PANEL Routine 07/08/2006 10:53 AM VIDEO MACHINES MECHANIC COMPREHENSIVE METABOLIC PANEL Routine 07/08/2006 10:53 AM VIDEO MACHINES MECHANIC documented in this encounter Results * URINALYSIS WITH MICROSCOPIC (07/08/2006 10:56 AM VIDEO MACHINES MECHANIC) COLOR UA Yellow INTERFACE SYSTEM CLARITY UA [...] /HPF INTERFACE SYSTEM 07/08/2006 10:5 6 AM VIDEO MACHINES MECHANIC Aristeo Boyd MD URINE ORDERABLES Edited Performing Organization Address [facility] Phone Number INTERFACE SYSTEM Refer to clinic/hospital department * CBC WITH DIFFERENTIAL (07/08/2006 10:53 AM VIDEO MACHINES MECHANIC) NEUTROPHILS 63 45 - 70 % INTERFAC [...] K/uL INTERFACE SYSTEM 07/08/2006 10:5 3 AM VIDEO MACHINES MECHANIC Aristeo Boyd MD HEMATOLOGY ORDERABLES Edited Performing Organization Address [facility] Phone Number INTERFACE SYSTEM Refer to clinic/hospital department * (ABNORMAL) CBC WITH DIFFERENTIAL (07/08/2006 10:53 AM VIDEO MACHINES MECHANIC) WBC 10.0(H) 4.0 - 9.8 K/uL INTERFACE [...] fL INTERFACE SYSTEM 07/08/2006 10:5 3 AM VIDEO MACHINES MECHANIC Aristeo Boyd MD HEMATOLOGY ORDERABLES Edited Performing Organization Address City/[facility] Co de Phone Number INTERFACE SYSTEM Refer to clinic/hospital department * TSH WITH REFLEX FT4 AND FT3 (07/08/2006 10:53 AM VIDEO MACHINES MECHANIC) TSH 2.14 0.27 - 4.20 uU/mL INTERFACE SYSTEM 07/08/2006 10:5 3 AM VIDEO MACHINES MECHANIC Aristeo Boyd MD CHEMISTRY ORDERABLES Edited Performing Organization Address City/[facility]/ZIP Co de Phone Number INTERFACE SYSTEM Refer to clinic/hospital department * PSA (07/08/2006 10:53 AM VIDEO MACHINES MECHANIC) PSA 1.9 0.0 - 4.0 ng/mL INTERFACE SYSTEM Comment:Performed on [employer] M odular E170 System 07/08/2006 10:5 3 AM VIDEO MACHINES MECHANIC Aristeo Boyd MD CHEMISTRY ORDERABLES Edited INTERFACE SYSTEM Refer to clinic/hospital department * (ABNORMAL) LIPID PANEL (07/08/2006 10:53 AM VIDEO MACHINES MECHANIC) CHOLESTEROL 204(H) 100 - 199 mg/dL INTERFACE SYSTEM TRIGLYCERIDE 225(H) 10 - 149 mg/dL INTERFACE SYSTEM HDL 48 40 - 59 mg/dL INTERFACE SYSTEM CHOL/HDL RATIO 4.3 2.0 - 5.0 INTER FACE SYSTEM LDL CALCULATED 111(H) <=99 mg/dL INTERFACE SYSTEM LIPID PANEL COMMENT See Below INTERFACE SYSTEM Comment: The adult ATP and pediatric NCEP classifications for lipids are available on the [facility] Intranet at: [email or web address] Select: Lab Policies and Procedures Select: Reference Ranges - Lipids 07/08/2006 10:5 3 AM VIDEO MACHINES MECHANIC Aristeo Boyd MD CHEMISTRY ORDERABLES Edited INTERFACE SYSTEM Refer to clinic/hospital department * COMPREHENSIVE METABOLIC PANEL (07/08/2006 10:53 AM VIDEO MACHINES MECHANIC) GLUCOSE 90 65 - 99 mg/dL INTERFACE [...] and non- Americans is available on the [facility] Intranet at: [email or web address] Select: Lab Policies and Procedures Select: Reference Ranges - GFR 07/08/2006 10:5 3 AM VIDEO MACHINES MECHANIC us Aristeo Boyd MD CHEMISTRY ORDERABLES Edited INTERFACE SYSTEM Refer to clinic/hospital department documented in this encounter Visit Diagnoses Diagnosis Routine general medical examination at a health care facility- Primary documented in this encounter Care Teams Flat Sorting Machine Clerk Relationship Specialty Start Date End Date Jeremy Carreon MD [address] [place] [phone] PCP - General Internal Medicine 05/17/19 02/14/23 documented as of this encounter
--- OUTSIDE RECORDS SUMMARY | 2024-08-14 06:10 | XMS_ITS | Continuity of Care Document ---
Author Organization [employer] Address [address] [place] [address] Phone Care Team Providers Care Exchange Operator Name Role Phone Holly Nicolas MD Unavailable [...] Diagnoses Date Provider Providers Copied on [facility]counter [facility], [address], [place], [place], [address] , tel: [phone] [facility] No Information 7 Maria Isabel Barrera. [address] [place] [address], [place], [place], [address], [place]. [phone] [facility], [address], [place], [place], [address] , tel: [phone] [facility] No Information 0 Maria Isabel Barrera. [address] [place] [address], [place], [place], [address], . [phone] [facility], [address], [place], [place], [address] , [place] tel:[phone] [facility] Mixed hyperlipidemia Jul- 7 Vonjv Emy. [address] [place] [address], [place], [place], [address], [place]. tel:[phone] Referring Provider: Holly Baires, [address] [place] [address], [place], [address] . tel:[phone] [facility], [address], [place], [place], [address] , [place] tel:[phone] [facility] Essential hypertensionMixed hyperlipidemiaThrom bocytopeniaPolycyth emia veraObstructive sleep apnea syndromeBenign prostatic hyperplasia with lower urinary tract symptoms, unspecified morphologyMale erectile dysfunction, unspecifiedDermatit is 7 Kj Sarabia. [address] [place] [address], [id number], [place]. tel:[phone] Referring Provider: Holly Baires, [address] [place] [address], [place], [address] . tel:[phone] [facility], [address], [place], [place], [address] , tel: [phone] [facility] No Information Mar-2 1-201 6 Brooklynn Bain. [address] [place] [address], [place], [place], [address]. tel:[phone] [facility], [address], [place], [place], [address] , [place] tel: [phone] [facility] No Information 5 6 Maria Isabel Barrera. [address] [place] [address], [place], [place], [address], [place]. [phone] Referring Provider: Holly Baires, [address] [place] [address], [place], [address] . tel:[phone] [facility], [address], [place], [place], [address] , [place] tel: [phone] [facility] FolliculitisEssenti al hypertensionMixed hyperlipidemiaObstr uctive sleep apnea syndromePolycythemi a veraThrombocytopeni aBenign prostatic hyperplasia with lower urinary tract symptoms, unspecified morphologyMale erectile dysfunction, unspecifiedPersonal history of colonic polyps Sep-0 8 6 Kj Sarabia. [address] [place] [address], [id number], [place]. [phone] Referring Provider: Holly Baires, [address] [place] [address], [place], [address] . tel:[phone] [facility], [address], [place], [place], [address] , tel:[phone] [facility] No Information Ahsan- 0-201 6 Neetu Erazo. [address] [place] [address], [id number], [place]. tel:[phone] [facility], [address], [place], [place], [address] , tel: [phone] [facility] Encounter for general adult medical examination without abnormal findingsEssential (primary) hypertensionMixed hyperlipidemiaPolyc ythemia veraObstructive sleep apnea (adult) (pediatric)Benign prostatic hyperplasia with lower urinary tract symptoms, unspecified morphologyMale erectile dysfunction, unspecifiedMononeur opathy, unspecifiedPersonal history of colonic polyps Sep- 6 Maria Isabel Barrera. [address] [place] [address], [place], [place], [address], . [phone] Referring Provider: Holly Baires, [address] [place] [address], [place], [address] . tel:[phone] [facility], [address], [place], [place], [address] , tel: [phone] [facility] Benign prostatic hyperplasia with lower urinary tract symptoms, unspecified morphology Sep- 6 Brooklynn Bain. [address] [place] [address] [address], [place], [place], [address]. tel:[phone] [facility], [address], [place], [place], [address] , tel: [phone] [facility] Candidal dermatitis 5 Maria Isabel Barrera. [address] [place] [address], [place] [address], [place], [place], [address], . tel:[phone] [facility], [address], [place], [place], [address] , [place] tel:[phone] [facility] Essential (primary) hypertensionMixed hyperlipidemiaObstr uctive sleep apnea (adult) (pediatric)Polycyth emia veraPersonal history of colonic polypsMononeuropath y, unspecifiedMale erectile dysfunction, unspecifiedEncounte r for immunizationCandida l dermatitis 5 Kj Sarabia. [address] [place] [address], [id number], . tel:[phone] Referring Provider: Holly Baires, [address] [place] [address] [address], [place], [address] . tel:[phone] [facility], [address], [place], [place], [address] , [place] tel: [phone] [facility] Essential (primary) hypertensionPersona l history of colonic polypsMale erectile dysfunction, unspecifiedMixed hyperlipidemiaMonon europathy, unspecifiedObstruct kirsten sleep apnea (adult) (pediatric)Polycyth emia vera 5 Underwood Johny Sarabia. [address] [place] [address], [address], [place], [place], [address], [place]. tel:[phone] [facility], [address], [place], [place], [address] , [place] tel: [phone] [facility] Mixed hyperlipidemiaPolyc ythemiaHigh blood pressureObstructive sleep apneaAllergic dermatitis 5 Maria Isabel Barrera. [address] [place] [address], [facility] [[email or web address] [address], [place], [place], [address], [place]. tel:[phone] Referring Provider: Holly Baires, [address] [place] [address], [place], [address] . tel:[phone] [facility], [address], [place], [place], [address] , [place] tel: [phone] [facility] No Information 5 Maria Isabel Barrera. [address] [place] [address], [place], [place], [address], [place]. tel:[phone] [facility], [address], [place], [place], [address] , [place] tel:[phone] [facility] No Information 4 Maria Isabel Barrera. [address] [place] [address], [place], [place], [address], [place]. tel:[phone] [facility], [address], [place], [place], [address] , [place] tel:[phone] [facility] No Information 4 Maria Isabel Barrera. [address] [place] [address], [address], [place], [place], [address], [place]. [phone] [facility], [address], [place], [place], [address] , [place] tel:[phone] [facility] History of colonic polypsHigh blood pressureObstructive sleep apneaNeuropathyErec tile dysfunction 4 Maria Isabel Barrera. [address] [place] [address], [address], [place], [place], [address], [place]. [phone] Referring Provider: Holly Baires, [address] [place] [address] [address], [place], [address] . tel:[phone] Family History Family Member Type Diagnosis Age [...] er Payers Payer name Insurance type Covered green party ID Authoriza tion(s) [employer] [id number] [employer] [id number] [employer] [id number] [employer] [id number] Social History Type Description Quantity Date Captured [...]
--- OUTSIDE RECORDS SUMMARY | 2024-08-14 06:10 | XMS_ITS | Patient Health Summary ---
Author Organization [facility] Address [address] [place] [address] Care Team Providers Care Orchid Transplanter Name Role Phone Darren Butler DO Primary Care Provider [phone] Note from [facility],non-owned Affiliates and Associated Physician Practices is amultiple site organization consisting of ambulatory clinics and hospital sitesin [place], [place], [place] and [place]. This disclosure is being madepursuant to the Care Everywhere program and may not contain all information available regarding this patient. Last updated 18.[facility] Allergies * Amlodipine Base(Itching) * Hydrochlorothiazide(Itching) * [...] 4 Grams (4000 mg) / 24 hours. Active Problems Problem Noted Date Diagnosed Date [...] care, and heating? Not very hard 07/05/2024 [facility] - Occupational Stress [...] any time in the past 12 m [facility], were you homeless or living in a group home (including now)? No 07/05/2024 Sex and Gender Information Value Date Recorded Sex Assigned at Not on file Gender Identity Not on file Sexual Orientation Not on file Last Filed Vital Signs Vital Sign Reading Time Taken Comments Blood Pressure 129/91 07/10/2024 4:09 PM GEAR LAPPING MACHINE OPERATOR Pulse 81 07/10/2024 4:09 PM GEAR LAPPING MACHINE OPERATOR Temperature 36.8 C (98.2 F) 07/10/2024 4:09 PM GEAR LAPPING MACHINE OPERATOR Respiratory Rate 18 07/10/2024 4:09 PM GEAR LAPPING MACHINE OPERATOR Oxygen Saturation 95% 07/10/2024 4:09 PM GEAR LAPPING MACHINE OPERATOR Inhaled Oxygen Concentration - - Weight 72.5 kg (159 lb 13.3 oz) 07/10/2024 4:00 AM GEAR LAPPING MACHINE OPERATOR Height 177.8 cm (5' 10 ) 07/05/2024 8:22 PM GEAR LAPPING MACHINE OPERATOR Body Mass Index 22.93 07/05/2024 8:22 PM GEAR LAPPING MACHINE OPERATOR Procedures * GLUCOSE - POINT OF CARE(Performed [...] - POINT OF CARE (07/10/2024 11:33 AM GEAR LAPPING MACHINE OPERATOR) Glucose WB/POC 131(H) 70 - 99 mg/dL 07/10/2024 3:47 PM GEAR LAPPING MACHINE OPERATOR [facility] Specimen Type Cap Fingerstick 2024 3:47 PM [facility] Blood BLOOD SPECIMEN / Unknown 07/10/2024 11:33 AM GEAR LAPPING MACHINE OPERATOR 07/10/2024 3:47 PM GEAR LAPPING MACHINE OPERATOR Cinthya Orantes MD LAB - POINT OF CARE ORDERABLES [facility] [address] [place] [address], [facility] [phone] * (ABNORMAL) BASIC METABOLIC PANEL (CALCIUM TOTAL) (07/09/2024 3:40 AM GEAR LAPPING MACHINE OPERATOR) Only the most recent of6 resultswithin the time period is included. BUN 26 7 - 26 mg/dL 07/09/2024 4:55 AM [facility] Creatinine 1.05 0.71 - 1.16 mg/dL 07/09/2024 4:55 AM [facility] Sodium 139 136 - 145 mmol/L 07/09/2024 4:55 AM [facility] Potassium 4.2 3.5 - 4.5 mmol/L 07/09/2024 4:55 AM [facility] Chloride 108(H) 98 - 107 mmol/L 07/09/2024 4:55 AM [facility] CO2 24 22 - 29 mmol/L 07/09/2024 4:55 AM [facility] Glucose 85 70 - 99 mg/dL 07/09/2024 4:55 AM [facility] Calcium 8.1(L) 8.4 - 10.2 mg/dL 07/09/2024 4:55 AM [facility] Anion Gap 7 6 - 16 07/09/2024 4:55 AM [facility] BUN/Creatinine Ratio 25(H) 7 - 23 07/09/2024 4:55 AM [facility] Osmolality Calculated 292 275 - 295 mOsm/kg 07/09/2024 4:55 AM [facility] eGFR by CKD-EPI 71(L) >=90 mL/min/1.7 3 m2 07/09/2024 4:55 AM [facility] Blood BLOOD SPECIMEN / Unknown Lab Venipuncture / Unknown 07/09/2024 3:40 AM GEAR LAPPING MACHINE OPERATOR 07/09/2024 4:29 AM GEAR LAPPING MACHINE OPERATOR Cinthya Orantes MD LAB - CHEMISTRY ORDERABLES Performing Organization Address City/[facility] Co de Phone Number [address] [address], [facility] [phone] * PHOSPHORUS BLOOD (07/09/2024 3:40 AM GEAR LAPPING MACHINE OPERATOR) Only the most recent of5 resultswithin the time period is included. Phosphorus 3.5 2.8 - 5.1 mg/dL 07/09/2024 4:55 AM GEAR LAPPING MACHINE OPERATOR [facility] Blood BLOOD SPECIMEN / Unknown Lab Venipuncture / Unknown 07/09/2024 3:40 AM GEAR LAPPING MACHINE OPERATOR 07/09/2024 4:29 AM GEAR LAPPING MACHINE OPERATOR Cinthya Orantes MD LAB - CHEMISTRY ORDERABLES Performing Organization Address [facility] Co de Phone Number [address] [address], [facility] [phone] * MAGNESIUM BLOOD (07/09/2024 3:40 AM GEAR LAPPING MACHINE OPERATOR) Only the most recent of5 resultswithin the time period is included. Magnesium 2.0 1.6 - 2.6 mg/dL 07/09/2024 4:55 AM [facility] Blood BLOOD SPECIMEN / Unknown Lab Venipuncture / Unknown 07/09/2024 3:40 AM GEAR LAPPING MACHINE OPERATOR 07/09/2024 4:29 AM GEAR LAPPING MACHINE OPERATOR Cinthya Orantes MD LAB - CHEMISTRY ORDERABLES Performing Organization Address [facility] Co de Phone Number [address] [address], [facility] [phone] * (ABNORMAL) CBC W AUTO DIFFERENTIAL (07/09/2024 3:39 AM GEAR LAPPING MACHINE OPERATOR) Only the most recent of6 resultswithin the time period is included. WBC 5.8 4.0 - 10.7 x10E9/L 07/09/2024 4:44 AM [facility] RBC Count 4.13(L) 4.30 - 5.80 x10E12/L 07/09/2024 4:44 AM [facility] Hemoglobin 12.2(L) 13.3 - 17.5 g/dL 07/09/2024 4:44 AM [facility] Hematocrit 36.8(L) 38.7 - 51.1 % 07/09/2024 4:44 AM [facility] MCV 89.1 80.0 - 98.0 fL 07/09/2024 4:44 AM [facility] MCH 29.5 26.7 - 33.6 pg 07/09/2024 4:44 AM [facility] MCHC 33.2 31.7 - 36.3 g/dL 07/09/2024 4:44 AM [facility] RDW-CV 14.0 11.3 - 14.8 % 07/09/2024 4:44 AM [facility] Platelet Count 105(L) 150 - 420 x10E9/L 07/09/2024 4:44 AM [facility] MPV 10.2 7.8 - 11.4 fL 07/09/2024 4:44 AM [facility] Neutrophil % 59.2 41.0 - 74.0 % 07/09/2024 4:44 AM [facility] Lymphocyte % 21.8 17.0 - 47.0 % 07/09/2024 4:44 AM [facility] Monocyte % 9.3 3.0 - 11.0 % 07/09/2024 4:44 AM [facility] Eosinophil % 8.8(H) 0.0 - 7.0 % 07/09/2024 4:44 AM [facility] Basophil % 0.7 0.0 - 1.6 % 07/09/2024 4:44 AM [facility] Immature Granulocytes % 0.2 0.0 - 1.0 % 07/09/2024 4:44 AM [facility] Neutrophil Absolute 3.42 1.60 - 7.50 x10E9/L 07/09/2024 4:44 AM [facility] Lymphocyte Absolute 1.26 1.00 - 4.40 x10E9/L 07/09/2024 4:44 AM [facility] Monocyte Absolute 0.54 0.15 - 1.00 x10E9/L 07/09/2024 4:44 AM GEAR LAPPING MACHINE OPERATOR [facility] Eosinophil Absolute 0.51 0.00 - 0.60 x10E9/L 07/09/2024 4:44 AM GEAR LAPPING MACHINE OPERATOR [facility] Basophil Absolute 0.04 0.00 - 0.13 x10E9/L 07/09/2024 4:44 AM GEAR LAPPING MACHINE OPERATOR [facility] Blood BLOOD SPECIMEN / Unknown Lab Venipuncture / Unknown 07/09/2024 3:39 AM GEAR LAPPING MACHINE OPERATOR 07/09/2024 4:27 AM GEAR LAPPING MACHINE OPERATOR Cinthya Orantes MD LAB - HEMATOLOG Y ORDERABLES [facility] [address] [place] [address], [facility] [phone] * SARS-COV-2 (COVID-19) RAPID (07/05/2024 1:45 PM GEAR LAPPING MACHINE OPERATOR) COVID-19 PCR Not detected Not detected 07/05/19 25 2:26 PM GEAR LAPPING MACHINE OPERATOR [facility] Microbiology SPECIMEN FROM NASOPHARYNGEAL STRUCTURE / Unknown Collection / Unknown 07/05/2024 1:45 PM GEAR LAPPING MACHINE OPERATOR 07/05/2024 1:53 PM GEAR LAPPING MACHINE OPERATOR Narrative [facility] - 07/05/2024 2:26 PM GEAR LAPPING MACHINE OPERATOR The Cepheid Xpert Xpress SARS-COV-2 has [...] Rivera MD LAB - MICROBIOLOGY O RDERABLES [facility] [address] [place] [phone], [facility] [phone] * CARDIAC EKG ORDER (07/05/2024 11:30 AM GEAR LAPPING MACHINE OPERATOR) Narrative 07/05/2024 11:30 AM GEAR LAPPING MACHINE OPERATOR Ordered by an unspecified provider. Scanned Document CARDIAC SERVICES ORD ERABLES * (ABNORMAL) URINALYSIS W/MICROSCOPIC NO CULTURE (07/05/2024 3:59 AM GEAR LAPPING MACHINE OPERATOR) Color UA Yellow Straw, Yellow 07/05/2024 4:24 AM [facility] Clarity UA Slt Cloudy(A) Clear 07/05/2024 4:24 AM [facility] Specific [place] UA 1.032(H) 1.005 - 1.030 07/05/2024 4:24 AM [facility] pH UA 5.0 5.0 - 8.0 pH 07/05/2024 4:24 AM [facility] Protein UA Negative Negative 07/05/2024 4:24 AM [facility] Glucose UA Negative Negative 07/05/2024 4:24 AM [facility] Ketone UA Trace(A) Negative 07/05/2024 4:24 AM [facility] Bilirubin UA Negative Negative 07/05/2024 4:24 AM [facility] Blood UA Negative Negative 07/05/2024 4:24 AM [facility] Nitrite UA Negative Negative 07/05/2024 4:24 AM [facility] Leukocyte Esterase Trace(A) Negative 07/05/2024 4:24 AM [facility] Urobilinogen UA Negative Negative mg/dL 07/05/2024 4:24 AM [facility] RBC UA 21-50(A) None Seen, 0-2, 3-5 /HPF 07/05/2024 4:24 AM [facility] WBC UA 11-20(A) None Seen, 0-5 /HPF 07/05/2024 4:24 AM [facility] Bacteria UA 1+(A) None /HPF 07/05/2024 4:24 AM [facility] Squamous Epithelial Cells UA None Seen None Seen, 0-2, 3-5 /HPF 07/05/2024 4:24 AM [facility] Amorphous Crystals Few(A) None /HPF 07/05/2024 4:24 AM [facility] Urine URINE SPECIMEN OBTAINED BY CLEAN CATCH PROCEDURE / Unknown Collection / Unknown 07/05/2024 3:59 AM [facility] 07/05/2024 4:03 AM [facility] - 07/05/2024 4:24 AM [facility] Cinthya Orantes MD LAB - URINALYSI S ORDERABLES [facility] [address] [place] [address], [facility] [phone] * (ABNORMAL) URINE DRUG SCREEN IMMUNOASSAY (07/05/2024 3:59 AM GEAR LAPPING MACHINE OPERATOR) Pathologist [facility] Amphetamines Screen Urine Negative Negative : < 1000 ng/mL 07/05/2024 4:42 AM [facility] Barbiturates Screen Urine Positive(A) Negative : < 200 ng/mL 07/05/2024 4:42 AM [facility] Comment: Positive urine barbiturate screening results should be confirmed by another generally accepted non-immunological method such as gas chromatography or mass spectrometry. Benzodiazepine Screen Urine Negative Negative : < 200 ng/mL 07/05/2024 4:42 AM [facility] Opiates Urine Negative Negative : < 300 ng/mL 07/05/2024 4:42 AM [facility] Cocaine Metabolites Urine Negative Negative : < 300 ng/mL 07/05/2024 4:42 AM [facility] Phencyclidine Screen Urine Negative Negative : < 25 ng/ml 07/05/2024 4:42 AM [facility] Cannabinoids Screen Urine Negative Negative : <50 ng/mL 07/05/2024 4:42 AM [facility] Methadone Screen Urine Negative Negative : < 300 ng/mL 07/05/2024 4:42 AM [facility] Fentanyl Screen Urine Negative Negative : <1.5 ng/mL 07/05/2024 4:42 AM GEAR LAPPING MACHINE OPERATOR [facility] Urine URINE / Unknown Collection / Unknown 07/05/2024 3:59 AM GEAR LAPPING MACHINE OPERATOR 07/05/2024 4:04 AM GEAR LAPPING MACHINE OPERATOR Narrative [facility] - 07/05/2024 4:42 AM GEAR LAPPING MACHINE OPERATOR The Urine Toxicology Screening Panel does not screen for Propoxyphene, Meprobamate, Carisoprodol, Trazodone, gyam-soi-ufznfjb medications and/or volatiles (Acetone, Isopropanol, Methanol or Ethylene Glycol). Ethanol, Salicylate, Acetaminophen, Tricyclic Antidepressants and several therapeutic drugs may be individually assayed in serum or plasma specimen. Toxicology testing by the [facility] is an aid to medical diagnosis and treatment of patients. No documented chain of custody was maintained. Results are intended to be used for clinical purposes only. Cinthya Orantes MD LAB - URINE ANDRA TRIPP ORDERABLES Performing Organization Address City/State/[facility] Co de Phone Number [address] [address], [facility] [phone] * CT Head Wo Contrast (07/04/2024 11:19 AM GEAR LAPPING MACHINE OPERATOR) Only the most recent of2 resultswithin the time period is included. Anatomical Region Laterality Modality Head Computed Tomogra phy 07/04/2024 11:3 9 AM GEAR LAPPING MACHINE OPERATOR Impressions 07/04/2024 11:42 AM GEAR LAPPING MACHINE OPERATOR IMPRESSION: 1. Unchanged size of the bilateral subdural hematomas along the cerebral convexities measuring up to 5 mm in maximum thickness. Slightly increased attenuation is likely related to contrast staining from the previous examinations. > Interpreting Provider: Veda Monk MD on 07/04/2024 11:42 AM Narrative 07/04/2024 11:42 AM GEAR LAPPING MACHINE OPERATOR PROCEDURE: CT HEAD WO CONTRAST, DATE/TIME OF EXAM: 07/04/2024 11:19 AM, LOCATION [facility] INDICATION: S06.5XAA: SDH (subdural hematoma) (HCC) ADDITIONAL [...] OF EXAM: 07/04/2024 11:19 AM, LOCATION [facility] INDICATION: S06.5XAA: SDH (subdural hematoma) (HCC) ADDITIONAL [...] * BLOOD TYPE VERIFICATION (07/04/2024 9:40 AM GEAR LAPPING MACHINE OPERATOR) ABO Rh O POS 07/04/2024 10:38 AM GEAR LAPPING MACHINE OPERATOR [facility] Blood Bank BLOOD SPECIMEN / Unknown Venipuncture / Unknown 07/04/2024 9:40 AM GEAR LAPPING MACHINE OPERATOR 07/04/2024 9:52 AM GEAR LAPPING MACHINE OPERATOR Cinthya Orantes MD LAB - BLOOD BAN K ORDERABLES [facility] [address] [place] [address], [place] [phone] * TYPE + SCREEN PANEL (07/04/2024 9:38 AM GEAR LAPPING MACHINE OPERATOR) Antibody Screen NEG 10:56 AM GEAR LAPPING MACHINE OPERATOR [facility] ABO Rh O POS 07/04/2024 10:56 AM GEAR LAPPING MACHINE OPERATOR [facility] Blood Bank BLOOD SPECIMEN / Unknown Venipuncture / Unknown 07/04/2024 9:38 AM GEAR LAPPING MACHINE OPERATOR 07/04/2024 9:51 AM GEAR LAPPING MACHINE OPERATOR Cinthya Orantes MD LAB - BLOOD BAN K ORDERABLES Performing Organization Address City/[facility]/ZIP Co de Phone Number [facility] [address] [place] [address], [place] [phone] * EKG 12-LEAD (07/04/2024 6:31 AM GEAR LAPPING MACHINE OPERATOR) Ventricular Rate 60 BPM [facility] Atrial Rate 60 BPM [facility] P-R Interval 180 ms [facility] QRS Duration ms 80 ms [facility] Q-T Interval ms 418 ms [facility] QTC Calculation (Bezet) 418 ms [facility] Calculated P Reading 52 degrees [facility] Calculated R Reading -26 degrees [facility] Calculated T Reading 46 degrees [facility] Interpretation EKG NORMAL SINUS RHYTHM LOW VOLTAGE QRS SEPTAL INFARCT , AGE UNDETERMINED ABNORMAL ECG NO PREVIOUS ECGS AVAILABLE Confirmed by BERNADETTE ANDRADE, KATY ([id number]) on 07/13/2024 10:51:42 PM [facility] 07/04/2024 6:31 AM GEAR LAPPING MACHINE OPERATOR 07/13/2024 10:51 PM GEAR LAPPING MACHINE OPERATOR Cinthya Orantes MD ECG ORDERABLES Performing Organization Address [facility] Co de Phone Number [facility] * PTT [facility] (07/04/2024 6:24 AM GEAR LAPPING MACHINE OPERATOR) APTT 23.3 23.0 - 38.4 Seconds 07/04/2024 7:00 AM [facility] Comment:Suggested therapeuti c range for full dose I.V. unfractionated heparin therapy for venous thromboembolism is 71 to 109 seconds. Blood BLOOD SPECIMEN / Unknown Venipuncture / Unknown 07/04/2024 6:24 AM GEAR LAPPING MACHINE OPERATOR 07/04/2024 6:35 AM GEAR LAPPING MACHINE OPERATOR Cinthya Orantes MD LAB - COAGULATI ON ORDERABLES Performing Organization Address [facility] de Phone Number [address] [address], [facility] [phone] * PT-INR [facility] (07/04/2024 6:24 AM GEAR LAPPING MACHINE OPERATOR) PT 14.2 12.1 - 14.8 Seconds 07/04/2024 7:00 AM [facility] INR 1.1 See Comment 07/04/2024 7:00 AM [facility] Comment:The suggested therap eutic range for standard coumadin (warfarin) therapy is an INR of 2.0-3.0. For high-risk patients (Mechanical Mitral Valve Prosthesis, etc.), the suggested prophylactic therapeutic range is an INR of 2.5-3.5. Blood BLOOD SPECIMEN / Unknown Venipuncture / Unknown 07/04/2024 6:24 AM GEAR LAPPING MACHINE OPERATOR 07/04/2024 6:35 AM GEAR LAPPING MACHINE OPERATOR Cinthya Orantes MD LAB - COAGULATI ON ORDERABLES Performing Organization Address [facility] Co de Phone Number [address] [address] [phone] * CT CHEST ABDOMEN PELVIS W CONT - Abdomen-pelvis trauma, blunt or penetrating (07/04/2024 6:23 AM GEAR LAPPING MACHINE OPERATOR) Anatomical Region Laterality Modality Chest, Abdomen, Pelvis Computed Tomography 07/04/2024 6:27 AM GEAR LAPPING MACHINE OPERATOR Impressions 07/04/2024 9:01 AM GEAR LAPPING MACHINE OPERATOR Impression: 1.No acute visceral, vascular, or osseus injury identified in the chest, abdomen, or pelvis. 2.Ectatic ascending aorta. 3.Moderate hiatal hernia. 4.Soft tissue contusion of right gluteal region. 5.Enlarged prostate with mild bladder wall thickening with slightly trabeculated appearance and a few diverticula overall favored to be related to underlying chronic bladder outlet obstruction. > Dictated by Ant De Jesus MD (residential manager). I, Puneet Perez have personally reviewed and interpreted this examination/study. > Interpreting Provider: Puneet Perez on 07/04/2024 9:01 AM Narrative 07/04/2024 9:01 AM GEAR LAPPING MACHINE OPERATOR PROCEDURE: CT CHEST ABDOMEN PELVIS W CONT, DATE/TIME OF EXAM: 07/04/2024 6:23 AM, LOCATION [facility] INDICATION: Trauma ADDITIONAL CLINICAL INFORMATION: Ordering Provider [...] DATE/TIME OF EXAM:07/04/2024 6:23 AM, LOCATION [facility] INDICATION: Trauma ADDITIONAL CLINICAL INFORMATION: Ordering Provider [...] > Dictated by Ant De Jesus MD (residential manager). I, Puneet Perez have personally reviewed and interpreted this examination/study. > Interpreting Provider: Puneet Perez on 07/04/2024 9:01 AM Cinthya Orantes MD CT ORDERABLES * CT LUMBAR SPINE WO CONTRAST - T/L-spine trauma, Spine fracture (07/04/2024 6:23 AM GEAR LAPPING MACHINE OPERATOR) Anatomical Region Laterality Modality Spine Computed Tomogra phy 07/04/2024 8:00 AM GEAR LAPPING MACHINE OPERATOR Impressions 07/04/2024 11:32 AM GEAR LAPPING MACHINE OPERATOR IMPRESSION: 1. No evidence of acute fracture in the cervical, thoracic, or lumbar spine. 2. Multiple chronic findings as detailed in the report. > Dictated by Arnoldo Banks MD, (residential manager). I, Veda Monk MD have personally reviewed and interpreted this examination/study. > Interpreting Provider: Veda Monk MD on 07/04/2024 11:32 AM Narrative 07/04/2024 11:32 AM GEAR LAPPING MACHINE OPERATOR PROCEDURE: CT CERVICAL SPINE WO CONTRAST, CT LUMBAR SPINE WO CONTRAST, CT THORACIC SPINE WO CONTRAST, DATE/TIME OF EXAM: 07/04/2024 6:23 AM, LOCATION [facility] INDICATION: Trauma ADDITIONAL CLINICAL INFORMATION: Ordering Provider [...] degrees of up to moderate facet osteoarthritis [id number]-uhnoukzo neuroforaminal stenosis in the right L4-L5 neural foramina . Procedure Note Veda Monk MD - 07/04/2024 PROCEDURE: CT CERVICAL SPINE WO CONTRAST, CT LUMBAR SPINE WO CONTRAST,CT THORACIC SPINE WO CONTRAST, DATE/TIME OF EXAM: 07/04/2024 6:23 AM,LOCATION [facility] INDICATION: Trauma ADDITIONAL CLINICAL INFORMATION: Ordering Provider [...] varyingdegrees of up to moderate facet osteoarthritis [id number]-ip-[id number] neuroforaminal stenosis in the right L4-L5 neural foramina . IMPRESSION: 1. No evidence of acute fracture in the cervical, thoracic, or lumbar spine. 2. Multiple chronic findings as detailed in the report. > Dictated by Arnoldo Banks MD, (residential manager). I, Veda Monk MD have personally reviewed and interpreted this examination/study. > Interpreting Provider: Veda Monk MD on 07/04/2024 11:32 AM [address]ya Orantes MD CT ORDERABLES * CT THORACIC SPINE WO CONTRAST - T/L-spine trauma, spine fracture (07/04/2024 6:23 AM GEAR LAPPING MACHINE OPERATOR) Anatomical Region Laterality Modality Spine Computed Tomogra phy 07/04/2024 8:00 AM GEAR LAPPING MACHINE OPERATOR Impressions 07/04/2024 11:32 AM GEAR LAPPING MACHINE OPERATOR IMPRESSION: 1. No evidence of acute fracture in the cervical, thoracic, or lumbar spine. 2. Multiple chronic findings as detailed in the report. > Dictated by Arnoldo Banks MD, (residential manager). I, Veda Monk MD have personally reviewed and interpreted this examination/study. > Interpreting Provider: Veda Monk MD on 07/04/2024 11:32 AM Narrative 07/04/2024 11:32 AM GEAR LAPPING MACHINE OPERATOR PROCEDURE: CT CERVICAL SPINE WO CONTRAST, CT LUMBAR SPINE WO CONTRAST, CT THORACIC SPINE WO CONTRAST, DATE/TIME OF EXAM: 07/04/2024 6:23 AM, LOCATION [facility] INDICATION: Trauma ADDITIONAL CLINICAL INFORMATION: Ordering Provider [...] degrees of up to moderate facet osteoarthritis [id number]-qa-[id number] neuroforaminal stenosis in the right L4-L5 neural foramina . Procedure Note Veda Monk MD - 07/04/2024 PROCEDURE: CT CERVICAL SPINE WO CONTRAST, CT LUMBAR SPINE WO CONTRAST,CT THORACIC SPINE WO CONTRAST, DATE/TIME OF EXAM: 07/04/2024 6:23 AM,LOCATION [facility] INDICATION: Trauma ADDITIONAL CLINICAL INFORMATION: Ordering Provider [...] varyingdegrees of up to moderate facet osteoarthritis [id number]-[id number] neuroforaminal stenosis in the right L4-L5 neural foramina . IMPRESSION: 1. No evidence of acute fracture in the cervical, thoracic, or lumbar spine. 2. Multiple chronic findings as detailed in the report. > Dictated by Arnoldo Banks MD, (residential manager). I, Veda Monk MD have personally reviewed and interpreted this examination/study. > Interpreting Provider: Veda Monk MD on 07/04/2024 11:32 AM Cinthya Orantes MD CT ORDERABLES * CT CERVICAL SPINE WO CONTRAST - C-Spine Trauma, Spine fracture (07/04/2024 6:23 AM GEAR LAPPING MACHINE OPERATOR) Anatomical Region Laterality Modality Spine Computed Tomogra phy 07/04/2024 8:00 AM GEAR LAPPING MACHINE OPERATOR Impressions 07/04/2024 11:32 AM GEAR LAPPING MACHINE OPERATOR IMPRESSION: 1. No evidence of acute fracture in the cervical, thoracic, or lumbar spine. 2. Multiple chronic findings as detailed in the report. > Dictated by Arnoldo Banks MD, (residential manager). I, Veda Monk MD have personally reviewed and interpreted this examination/study. > Interpreting Provider: Veda Monk MD on 07/04/2024 11:32 AM Narrative 07/04/2024 11:32 AM GEAR LAPPING MACHINE OPERATOR PROCEDURE: CT CERVICAL SPINE WO CONTRAST, CT LUMBAR SPINE WO CONTRAST, CT THORACIC SPINE WO CONTRAST, DATE/TIME OF EXAM: 07/04/2024 6:23 AM, LOCATION [facility] INDICATION: Trauma ADDITIONAL CLINICAL INFORMATION: Ordering Provider [...] degrees of up to moderate facet osteoarthritis [id number]-xz-[id number] neuroforaminal stenosis in the right L4-L5 neural foramina . Procedure Note Veda Monk MD - 07/04/2024 PROCEDURE: CT CERVICAL SPINE WO CONTRAST, CT LUMBAR SPINE WO CONTRAST,CT THORACIC SPINE WO CONTRAST, DATE/TIME OF EXAM: 07/04/2024 6:23 AM,LOCATION [facility] INDICATION: Trauma ADDITIONAL CLINICAL INFORMATION: Ordering Provider [...] varyingdegrees of up to moderate facet osteoarthritis [id number]-cipnvdbk neuroforaminal stenosis in the right L4-L5 neural foramina . IMPRESSION: 1. No evidence of acute fracture in the cervical, thoracic, or lumbar spine. 2. Multiple chronic findings as detailed in the report. > Dictated by Arnoldo Banks MD, (residential manager). I, Veda Monk MD have personally reviewed and interpreted this examination/study. > Interpreting Provider: Veda Monk MD on 07/04/2024 11:32 AM [address] Orantes MD CT ORDERABLES * (ABNORMAL) TEG 6 GLOBAL HEMOSTASIS W/ LYSIS (07/04/2024 6:00 AM GEAR LAPPING MACHINE OPERATOR) Citrated Kaolin R (Reaction Time) 2.6(L) 4.6 - 9.1 min 07/04/2024 7:39 AM [facility] Comment:CK R result below no rmal range. Consistent with hypercoagulable clotting factors. Citrated Kaolin LY30 (Lysis) 0.0 0.0 - 2.6 % 07/04/2024 7:39 AM [facility] Citrated Functional Fibrinogen MA (Max Amplitude) 13.1(L) 15.0 - 32.0 mm 07/04/2024 7:39 AM [facility] Comment:CFF MA below normal range. Consistent with decreased fibrinogen contribution to clot strength. Citrated RapidTEG MA (Max Amplitude) 49.6(L) 52.0 - 70.0 mm 07/04/2024 7:39 AM [facility] Comment:ROOM SERVER MA below normal range. Consistent with reduced clot strength from platelets or fibrinogen. Compare with CFF MA. Blood BLOOD SPECIMEN / Unknown Venipuncture / Unknown 07/04/2024 6:00 AM GEAR LAPPING MACHINE OPERATOR 07/04/2024 6:37 AM GEAR LAPPING MACHINE OPERATOR Cinthya Orantes MD LAB - HEMATOLOG Y ORDERABLES [address] [id number], [facility] [phone] * (ABNORMAL) TEG 6S PLATELET MAPPING (07/04/2024 6:00 AM [facility]) TEGPLM (Max Amplitude) Koalin 52.8(L) 53.0 - 68.0 mm 07/04/2024 7:23 AM [facility] TEGPLM (Max Amplitude) ACTF 3.6 2.0 - 19.0 mm 07/04/2024 7:23 AM [facility] TEGPLM (Max Amplitude) ADP 16.8(L) 45.0 - 69.0 mm 07/04/2024 7:23 AM [facility] Comment:ADP MA below normal range. Inhibition present. TEGPLM (Max Amplitude) AA 8.1(L) 51.0 - 71.0 mm 07/04/2024 7:23 AM [facility] Comment:AA MA below normal r ct. Inhibition present. TEGPLM %Inhibition ADP 73.2(H) 0.0 - 17.0 % 07/04/2024 7:23 AM [facility] TEGPLM %Inhibition AA 90.9(H) 0.0 - 11.0 % 07/04/2024 7:23 AM [facility] TEGPLM %Aggregation ADP 26.8(L) 83.0 - 100.0 % 07/04/2024 7:23 AM [facility] TEGPLM % Aggregation AA 9.1(L) 89.0 - 100.0 % 07/04/2024 7:23 AM [facility] Blood BLOOD SPECIMEN / Unknown Venipuncture / Unknown 07/04/2024 6:00 AM GEAR LAPPING MACHINE OPERATOR 07/04/2024 6:37 AM GEAR LAPPING MACHINE OPERATOR Cinthya Orantes MD LAB - HEMATOLOG Y ORDERABLES Performing Organization Address [facility]/ZIP Co de Phone Number [address] [address], [facility] [phone] * ALCOHOL ETHYL BLOOD (07/04/2024 6:00 AM GEAR LAPPING MACHINE OPERATOR) Ethanol (mg/dL) <10 <10 mg/dL 7:03 AM [facility] Ethanol Calculated (g/dL) <0.010 <=0.010 g/dL 07/04/2024 7:03 AM [facility] Blood BLOOD SPECIMEN / Unknown Venipuncture / Unknown 07/04/2024 6:00 AM GEAR LAPPING MACHINE OPERATOR 07/04/2024 6:39 AM GEAR LAPPING MACHINE OPERATOR Narrative [facility] - 07/04/2024 7:03 AM GEAR LAPPING MACHINE OPERATOR Ethanol Interp <10: None Detected. Depression of BEET TOPPER: >100 mg/dl Potentially Critical: >250 mg/dl Potentially Fatal >400 mg/dl Ethanol in the patient's blood will contribute to the osmolar gap. Ethanol's contribution to the osmolar gap can be estimated by dividing the concentration of ethanol in mg/dL by 4.6. This test is for clinical use only and does not equal a JEREMY for legal purposes. Cinthya Oranets MD LAB - CHEMISTRY ORDERABLES Performing Organization Address [facility]/ZIP Co de Phone Number [address] [phone], [facility] [phone] * XR CHEST 1VW PORTABLE (07/04/2024 6:00 AM GEAR LAPPING MACHINE OPERATOR) Anatomical Region Laterality Modality Chest Digital Radiogra phy 07/04/2024 6:08 AM GEAR LAPPING MACHINE OPERATOR Impressions 07/04/2024 9:56 AM GEAR LAPPING MACHINE OPERATOR IMPRESSION: No acute pulmonary disease. Prominence of the aortic arch could indicate aortic dilatation. > Dictated by Pauline Bravo MD (residential manager) Elikn Esparza MD have personally reviewed and interpreted this examination/study. > Interpreting Provider: Elkin Eric MD on 07/04/2024 9:56 AM Narrative 07/04/2024 9:56 AM GEAR LAPPING MACHINE OPERATOR PROCEDURE: XR CHEST 1VW PORTABLE, DATE/TIME OF EXAM: 07/04/2024 6:08 AM, LOCATION [facility] INDICATION: Trauma ADDITIONAL CLINICAL INFORMATION: Ordering Provider Reason For Exam: Technologist Note: Additional: COMPARISON: None. FINDINGS: There is no pulmonary consolidation, pleural effusion, or pneumothorax. The heart size is normal. Prominence of the aortic arch could indicate aortic dilatation. Procedure Note Elkin Eric MD - 07/04/2024 PROCEDURE: XR CHEST 1VW PORTABLE, DATE/TIME OF EXAM: 07/04/2024 6:08AM, LOCATION [facility] INDICATION: Trauma ADDITIONAL CLINICAL INFORMATION: Ordering Provider Reason For Exam: Technologist Note: Additional: COMPARISON: None. FINDINGS: There is no pulmonary consolidation, pleural effusion, or pneumothorax. The heart size is normal. Prominence of the aortic arch could indicate aortic dilatation. IMPRESSION: No acute pulmonary disease. Prominence of the aortic arch could indicate aortic dilatation. > Dictated by Pauline Bravo MD (residential manager) Elkin Esparza MD have personally reviewed and interpreted this examination/study. > Interpreting Provider: Elkin Eric MD on 07/04/2024 9:56 AM Cinthya Orantes MD DIAGNOSTIC IMAG ING ORDERABLES * XR PELVIS 1 OR 2VW (07/04/2024 6:00 AM GEAR LAPPING MACHINE OPERATOR) Anatomical Region Laterality Modality Pelvis Digital Radiogra phy 07/04/2024 6:34 AM GEAR LAPPING MACHINE OPERATOR Impressions 07/04/2024 9:54 AM GEAR LAPPING MACHINE OPERATOR IMPRESSION: No acute fracture identified. Report dictated by Pauline Bravo MD (residential manager). Elkin Esparza MD have personally reviewed and interpreted this examination/study. > Interpreting Provider: Elkin Eric MD on 07/04/2024 9:54 AM Narrative 07/04/2024 9:54 AM GEAR LAPPING MACHINE OPERATOR PROCEDURE: XR PELVIS 1 OR 2VW, DATE/TIME OF EXAM: 07/04/2024 6:08 AM, LOCATION [facility] INDICATION: Trauma Fracture suspected COMPARISON: None. FINDINGS: No acute fracture is identified. The femoral heads appear well-seated within their respective acetabula. The pubic symphysis is intact. Bone density and texture are normal. The sacroiliac joints are normal. Procedure Note Elkin Eric MD - 07/04/2024 PROCEDURE: XR PELVIS 1 OR 2VW, DATE/TIME OF EXAM: 07/04/2024 6:08 AM, LOCATION [facility] INDICATION: Trauma Fracture suspected COMPARISON: None. FINDINGS: No acute fracture is identified. The femoral heads appear well-seated within their respective acetabula. The pubic symphysis is intact. Bone density and texture are normal. The sacroiliac joints are normal. IMPRESSION: No acute fracture identified. Report dictated by Pauline Bravo MD (residential manager). I, Elkin Eric MD have personally reviewed and interpreted this examination/study. > Interpreting Provider: Elkin Eric MD on 07/04/2024 9:54 AM Cinthya Orantes MD DIAGNOSTIC IMAG ING ORDERABLES Care Teams Orchid Transplanter Relationship Specialty Start Date End Date Darren Butler DO [address] [place] [phone] PCP - General Internal Medicine 07/05/24
--- OUTSIDE RECORDS SUMMARY | 2024-08-14 06:10 | XMS_ITS | Clinical Summary ---
Author Organization [facility] Address [address] [place] [address] Care Team Providers Care Billet Checker Name Role Phone Darren Butler DO Primary Care Provider [phone] Source Comments [facility],non-owned Affiliates and Associated Physician Practices is amultiple site organization consisting of ambulatory clinics and hospital sitesin [place], [place], [place] and [place]. This disclosure is being madepursuant to the Care Everywhere program and may not contain all information available regarding this patient. Last updated 18.[facility] Allergies Active Allergy Reactions Criticality Noted Date [...] (4000 mg) / 24 hours. 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 8S ACUTE [address] [place] [address] Miguel Bhagat MD Mason, Mark A, MD Medintz, MD Lori Borjas, Jarret Durbin MD Trauma Discharge Disposition: Longterm Facility 07/04/2024 Travel from Last 3 Months [...] care, and heating? Not very hard 07/05/2024 [facility] - Occupational Stress [...] any time in the past 12 [facility], were you homeless or living in a long term (including now)? No 07/05/2024 Sex and Gender Information Value Date Recorded Sex Assigned at Not on file Gender Identity Not on file Sexual Orientation Not on file Last Filed Vital Signs Vital Sign Reading Time Taken Comments Blood Pressure 129/91 07/10/2024 4:09 PM [employer]OUT DESIGNER Pulse 81 07/10/2024 4:09 PM [employer] LAYOUT DESIGNER Temperature 36.8 C (98.2 F) 07/10/2024 4:09 PM [employer] LAYOUT DESIGNER Respiratory Rate 18 07/10/2024 4:09 PM [employer] LAYOUT DESIGNER Oxygen Saturation 95% 07/10/2024 4:09 PM [employer] LAYOUT DESIGNER Inhaled Oxygen Concentration - - Weight 72.5 kg (159 lb 13.3 oz) 07/10/2024 4:00 AM [employer] LAYOUT DESIGNER Height 177.8 cm (5' 10 ) 07/05/2024 8:22 PM [employer]OUT DESIGNER Body Mass Index 22.93 07/05/2024 8:22 PM [employer] LAYOUT DESIGNER Plan of Treatment Health Maintenance Due Date [...] POINT OF CARE Routine 07/10/2024 11:33 AM [employer] LAYOUT DESIGNER PHOSPHORUS BLOOD Routine 07/09/2024 3:40 AM [employer] LAYOUT DESIGNER MAGNESIUM BLOOD Routine 07/09/2024 3:40 AM [employer] IC LAYOUT DESIGNER BASIC METABOLIC PANEL (CALCIUM TOTAL) Routine 07/09/2024 3:40 AM [employer] LAYOUT DESIGNER CBC W AUTO DIFFERENTIAL Routine 07/09/2024 3:39 AM [employer] LAYOUT DESIGNER PHOSPHORUS BLOOD Routine 07/08/2024 8:43 PM [employer] LAYOUT DESIGNER MAGNESIUM BLOOD Routine 07/08/2024 8:43 PM [employer] LAYOUT DESIGNER CBC W AUTO DIFFERENTIAL Routine 07/08/2024 8:43 PM [employer] IC LAYOUT DESIGNER BASIC METABOLIC PANEL (CALCIUM TOTAL) Routine 07/08/2024 8:43 PM [employer] IC LAYOUT DESIGNER PHOSPHORUS BLOOD Routine 07/07/2024 6:22 AM [employer] IC LAYOUT DESIGNER MAGNESIUM BLOOD Routine 07/07/2024 6:22 AM [employer] IC LAYOUT DESIGNER CBC W AUTO DIFFERENTIAL Routine 07/07/2024 6:22 AM [employer] IC LAYOUT DESIGNER BASIC METABOLIC PANEL (CALCIUM TOTAL) Routine 07/07/2024 6:22 AM [employer] LAYOUT DESIGNER CBC W AUTO DIFFERENTIAL Routine 07/06/2024 7:01 AM [employer] IC LAYOUT DESIGNER PHOSPHORUS BLOOD Routine 07/06/2024 7:00 AM [employer] LAYOUT DESIGNER MAGNESIUM BLOOD Routine 07/06/2024 7:00 AM [employer] IC LAYOUT DESIGNER BASIC METABOLIC PANEL (CALCIUM TOTAL) Routine 07/06/2024 7:00 AM [employer] LAYOUT DESIGNER SARS-COV-2 (COVID-19) RAPID STAT 07/05/2024 1:45 PM [employer] LAYOUT DESIGNER Fall, initial encounter CARDIAC EKG ORDER 07/05/2024 11: 30 AM [employer] LAYOUT DESIGNER PHOSPHORUS BLOOD STAT 07/05/2024 3:59 AM [employer] LAYOUT DESIGNER MAGNESIUM BLOOD STAT 07/05/2024 3:59 AM [employer] IC LAYOUT DESIGNER CBC W AUTO DIFFERENTIAL STAT 07/05/2024 3:59 AM [employer] LAYOUT DESIGNER BASIC METABOLIC PANEL (CALCIUM TOTAL) STAT 07/05/2024 3:59 AM [employer] IC LAYOUT DESIGNER URINALYSIS W/MICROSCOPIC NO CULTURE STAT 07/05/2024 3:59 AM [employer] LAYOUT DESIGNER URINE DRUG SCREEN IMMUNOASSAY STAT 07/05/2024 3:59 AM [employer] L[employer] CT HEAD WO CONTRAST STAT 07/04/2024 1 1:19 AM [employer]ATED [employer] IC LAYOUT DESIGNER SDH (subdural hematoma) (HCC) BLOOD TYPE VERIFICATION STAT 07/04/2024 9:40 AM [employer] IC LAYOUT DESIGNER TYPE + SCREEN PANEL STAT 07/04/2024 9 :38 AM [employer]ATED [employer] IC LAYOUT DESIGNER EKG 12-LEAD STAT 07/04/2024 6:31 AM [employer] LAYOUT DESIGNER Fall, initial encounter PTT [facility] STAT 07/04/2024 6:24 AM [employer]ATED [employer] IC LAYOUT DESIGNER PT-INR [facility] STAT 07/04/2024 6:24 AM [employer] L[employer] DES[employer]ER CT LUMBAR SPINE WO CONTRAST STAT 07/04/2024 6:23 AM [employer] LAYOUT DESIGNER Fall, initial encounter CT THORACIC SPINE WO CONTRAST STAT 07/04/2024 6:23 AM [employer] LAYOUT DESIGNER Fall, initial encounter CT CHEST ABDOMEN PELVIS W CONT STAT 07/04/2024 6:23 AM [employer] LAYOUT DESIGNER Fall, initial encounter CT CERVICAL SPINE WO CONTRAST STAT 07/04/2024 6:23 AM [employer] LAYOUT DESIGNER Fall, initial encounter CT HEAD WO CONTRAST STAT 07/04/2024 6 :23 AM [employer]ATED [employer] IC LAYOUT DESIGNER Fall, initial encounter TEG 6S PLATELET MAPPING STAT 07/04/2024 6:00 AM [employer] IC LAYOUT DESIGNER TEG 6 GLOBAL HEMOSTASIS W/ LYSIS STAT 07/04/2024 6:00 AM [employer] LAYOUT DESIGNER CBC W AUTO DIFFERENTIAL STAT 07/04/2024 6:00 AM [employer] IC LAYOUT DESIGNER BASIC METABOLIC PANEL (CALCIUM TOTAL) STAT 07/04/2024 6:00 AM [employer] LAYOUT DESIGNER ALCOHOL ETHYL BLOOD STAT 07/04/2024 6 :00 AM [employer]ATED [employer] IC LAYOUT DESIGNER XR PELVIS 1 OR 2VW STAT 07/04/2024 6: 00 AM [employer] LAYOUT DESIGNER Fall, initial encounter XR CHEST 1VW PORTABLE STAT 07/04/2024 6:00 AM [employer] LAYOUT DESIGNER Fall, initial encounter from Last 3 Months Results * (ABNORMAL) GLUCOSE - POINT OF CARE (07/10/2024 11:33 AM [employer] LAYOUT DESIGNER) Glucose WB/POC 131(H) 70 - 99 mg/dL 07/10/2024 3:47 PM [employer] IC LAYOUT DESIGNER [facility] Specimen Type Cap Fingerstick 2024 3:47 PM [employer] LAYOUT DESIGNER [facility] Blood BLOOD SPECIMEN / Unknown 07/10/2024 11:33 AM [employer] LAYOUT DESIGNER 07/10/2024 3:47 PM [employer] LAYOUT DESIGNER Cinthya Orantes MD LAB - POINT OF CARE ORDERABLES [facility] [address] [place] [address], [facility] [phone] * (ABNORMAL) BASIC METABOLIC PANEL (CALCIUM TOTAL) (07/09/2024 3:40 AM [employer] LAYOUT DESIGNER) Only the most recent of6 resultswithin the time period is included. BUN 26 7 - 26 mg/dL 07/09/2024 4:55 AM [facility] Creatinine 1.05 0.71 - 1.16 mg/dL 07/09/2024 4:55 AM [facility] Sodium 139 136 - 145 mmol/L 07/09/2024 4:55 AM [facility] Potassium 4.2 3.5 - 4.5 mmol/L 07/09/2024 4:55 AM [facility] Chloride 108(H) 98 - 107 mmol/L 07/09/2024 4:55 AM [facility] CO2 24 22 - 29 mmol/L 07/09/2024 4:55 AM [facility] Glucose 85 70 - 99 mg/dL 07/09/2024 4:55 AM [facility] Calcium 8.1(L) 8.4 - 10.2 mg/dL 07/09/2024 4:55 AM [facility] Anion Gap 7 6 - 16 07/09/2024 4:55 AM [facility] BUN/Creatinine Ratio 25(H) 7 - 23 07/09/2024 4:55 AM [facility] Osmolality Calculated 292 275 - 295 mOsm/kg 07/09/2024 4:55 AM [facility] eGFR by CKD-EPI 71(L) >=90 mL/min/1.7 3 m2 07/09/2024 4:55 AM [facility] Blood BLOOD SPECIMEN / Unknown Lab Venipuncture / Unknown 07/09/2024 3:40 AM [employer] LAYOUT DESIGNER 07/09/2024 4:29 AM [employer] LAYOUT DESIGNER Cinthya Orantes MD LAB - CHEMISTRY ORDERABLES [address] [address], [facility] [phone] * PHOSPHORUS BLOOD (07/09/2024 3:40 AM [employer] LAYOUT DESIGNER) Only the most recent of5 resultswithin the time period is included. Phosphorus 3.5 2.8 - 5.1 mg/dL 07/09/2024 4:55 AM [employer] LAYOUT DESIGNER [facility] Blood BLOOD SPECIMEN / Unknown Lab Venipuncture / Unknown 07/09/2024 3:40 AM [employer] LAYOUT DESIGNER 07/09/2024 4:29 AM [employer] LAYOUT DESIGNER Cinthya Orantes MD LAB - CHEMISTRY ORDERABLES Performing Organization Address City/[facility]/ZIP Co de Phone Number [address] [address], [facility] [phone] * MAGNESIUM BLOOD (07/09/2024 3:40 AM [employer] LAYOUT DESIGNER) Only the most recent of5 resultswithin the time period is included. Magnesium 2.0 1.6 - 2.6 mg/dL 07/09/2024 4:55 AM [employer] LAYOUT DESIGNER [facility] Blood BLOOD SPECIMEN / Unknown Lab Venipuncture / Unknown 07/09/2024 3:40 AM [employer] LAYOUT DESIGNER 07/09/2024 4:29 AM [employer] LAYOUT DESIGNER Cinthya Orantes MD LAB - CHEMISTRY ORDERABLES Performing Organization Address City/[facility]/ZIP Co de Phone Number [address] [address], [facility] [phone] * (ABNORMAL) CBC W AUTO DIFFERENTIAL (07/09/2024 3:39 AM [employer] LAYOUT DESIGNER) Only the most recent of6 resultswithin the time period is included. WBC 5.8 4.0 - 10.7 x10E9/L 07/09/2024 4:44 AM [facility] RBC Count 4.13(L) 4.30 - 5.80 x10E12/L 07/09/2024 4:44 AM [facility] Hemoglobin 12.2(L) 13.3 - 17.5 g/dL 07/09/2024 4:44 AM [facility] Hematocrit 36.8(L) 38.7 - 51.1 % 07/09/2024 4:44 AM [facility] MCV 89.1 80.0 - 98.0 fL 07/09/2024 4:44 AM [facility] MCH 29.5 26.7 - 33.6 pg 07/09/2024 4:44 AM [facility] MCHC 33.2 31.7 - 36.3 g/dL 07/09/2024 4:44 AM [facility] RDW-CV 14.0 11.3 - 14.8 % 07/09/2024 4:44 AM [facility] Platelet Count 105(L) 150 - 420 x10E9/L 07/09/2024 4:44 AM [facility] MPV 10.2 7.8 - 11.4 fL 07/09/2024 4:44 AM [facility] Neutrophil % 59.2 41.0 - 74.0 % 07/09/2024 4:44 AM [facility] Lymphocyte % 21.8 17.0 - 47.0 % 07/09/2024 4:44 AM [facility] Monocyte % 9.3 3.0 - 11.0 % 07/09/2024 4:44 AM [facility] Eosinophil % 8.8(H) 0.0 - 7.0 % 07/09/2024 4:44 AM [facility] Basophil % 0.7 0.0 - 1.6 % 07/09/2024 4:44 AM [facility] Immature Granulocytes % 0.2 0.0 - 1.0 % 07/09/2024 4:44 AM [facility] Neutrophil Absolute 3.42 1.60 - 7.50 x10E9/L 07/09/2024 4:44 AM [facility] Lymphocyte Absolute 1.26 1.00 - 4.40 x10E9/L 07/09/2024 4:44 AM [facility] Monocyte Absolute 0.54 0.15 - 1.00 x10E9/L 07/09/2024 4:44 AM [facility] Eosinophil Absolute 0.51 0.00 - 0.60 x10E9/L 07/09/2024 4:44 AM [employer] LAYOUT DESIGNER [facility] Basophil Absolute 0.04 0.00 - 0.13 x10E9/L 07/09/2024 4:44 AM [employer] LAYOUT DESIGNER [facility] Blood BLOOD SPECIMEN / Unknown Lab Venipuncture / Unknown 07/09/2024 3:39 AM [employer] LAYOUT DESIGNER 07/09/2024 4:27 AM [employer] LAYOUT DESIGNER Cinthya Orantes MD LAB - HEMATOLOG Y ORDERABLES [facility] [address] [place] [address], [facility] [phone] * SARS-COV-2 (COVID-19) RAPID (07/05/2024 1:45 PM [employer] LAYOUT DESIGNER) COVID-19 PCR Not detected Not detected 07/05/19 25 2:26 PM [employer] LAYOUT DESIGNER [facility] Microbiology SPECIMEN FROM NASOPHARYNGEAL STRUCTURE / Unknown Collection / Unknown 07/05/2024 1:45 PM [employer] LAYOUT DESIGNER 07/05/2024 1:53 PM [employer] IC LAYOUT DESIGNER Narrative [facility] - 07/05/2024 2:26 PM [employer] IC LAYOUT DESIGNER The Cepheid Xpert Xpress SARS-COV-2 has been [...] MD LAB - MICROBIOLOGY O RDERABLES [facility] [address] [place] [address], [facility] [phone] * CARDIAC EKG ORDER (07/05/2024 11:30 AM IN[employer]ATED [employer] IC LAYOUT DESIGNER) Narrative 07/05/2024 11:30 AM [employer] LAYOUT DESIGNER Ordered by an unspecified provider. Scanned Document CARDIAC SERVICES ORD ERABLES * (ABNORMAL) URINALYSIS W/MICROSCOPIC NO CULTURE (07/05/2024 3:59 AM IN[employer] IC LAYOUT DESIGNER) Color UA Yellow Straw, Yellow 07/05/2024 4:24 AM [facility] Clarity UA Slt Cloudy(A) Clear 07/05/2024 4:24 AM [facility] Specific [place] UA 1.032(H) 1.005 - 1.030 07/05/2024 4:24 AM [facility] pH UA 5.0 5.0 - 8.0 pH 07/05/2024 4:24 AM [facility] Protein UA Negative Negative 07/05/2024 4:24 AM [facility] Glucose UA Negative Negative 07/05/2024 4:24 AM [facility] Ketone UA Trace(A) Negative 07/05/2024 4:24 AM [facility] Bilirubin UA Negative Negative 07/05/2024 4:24 AM [facility] Blood UA Negative Negative 07/05/2024 4:24 AM [facility] Nitrite UA Negative Negative 07/05/2024 4:24 AM [facility] Leukocyte Esterase Trace(A) Negative 07/05/2024 4:24 AM [facility] Urobilinogen UA Negative Negative mg/dL 07/05/2024 4:24 AM [facility] RBC UA 21-50(A) None Seen, 0-2, 3-5 /HPF 07/05/2024 4:24 AM [facility] WBC UA 11-20(A) None Seen, 0-5 /HPF 07/05/2024 4:24 AM [facility] Bacteria UA 1+(A) None /HPF 07/05/2024 4:24 AM [facility] Squamous Epithelial Cells UA None Seen None Seen, 0-2, 3-5 /HPF 07/05/2024 4:24 AM [facility] Amorphous Crystals Few(A) None /HPF 07/05/2024 4:24 AM [facility] Urine URINE SPECIMEN OBTAINED BY CLEAN CATCH PROCEDURE / Unknown Collection / Unknown 07/05/2024 3:59 AM [employer] LAYOUT DESIGNER 07/05/2024 4:03 AM [facility] - 07/05/2024 4:24 AM [facility] Cinthya Orantes MD LAB - URINALYSI S ORDERABLES [facility] [address] [place] [phone], [facility] [phone] * (ABNORMAL) URINE DRUG SCREEN IMMUNOASSAY (07/05/2024 3:59 AM IN[employer] LAYOUT DESIGNER) Pathologist [facility] Amphetamines Screen Urine Negative Negative : < 1000 ng/mL 07/05/2024 4:42 AM [facility] Barbiturates Screen Urine Positive(A) Negative : < 200 ng/mL 07/05/2024 4:42 AM [facility] Comment: Positive urine barbiturate screening results should be confirmed by another generally accepted non-immunological method such as gas chromatography or mass spectrometry. Benzodiazepine Screen Urine Negative Negative : < 200 ng/mL 07/05/2024 4:42 AM [facility] Opiates Urine Negative Negative : < 300 ng/mL 07/05/2024 4:42 AM [facility] Cocaine Metabolites Urine Negative Negative : < 300 ng/mL 07/05/2024 4:42 AM [facility] Phencyclidine Screen Urine Negative Negative : < 25 ng/ml 07/05/2024 4:42 AM [facility] Cannabinoids Screen Urine Negative Negative : <50 ng/mL 07/05/2024 4:42 AM [facility] Methadone Screen Urine Negative Negative : < 300 ng/mL 07/05/2024 4:42 AM [facility] Fentanyl Screen Urine Negative Negative : <1.5 ng/mL 07/05/2024 4:42 AM [employer] LAYOUT DESIGNER [facility] Urine URINE / Unknown Collection / Unknown 07/05/2024 3:59 AM [employer] LAYOUT DESIGNER 07/05/2024 4:04 AM [employer] IC LAYOUT DESIGNER Narrative [facility] - 07/05/2024 4:42 AM [employer]TE[employer] IC LAYOUT DESIGNER The Urine Toxicology Screening Panel does not screen for Propoxyphene, Meprobamate, Carisoprodol, Trazodone, coqf-njw-lnksudp medications and/or volatiles (Acetone, Isopropanol, Methanol or Ethylene Glycol). Ethanol, Salicylate, Acetaminophen, Tricyclic Antidepressants and several therapeutic drugs may be individually assayed in serum or plasma specimen. Toxicology testing by the [facility] is an aid to medical diagnosis and treatment of patients. No documented chain of custody was maintained. Results are intended to be used for clinical purposes only. Cinthya Orantes MD LAB - URINE ANDRA TRIPP ORDERABLES [address] [address], [facility] [phone] * CT Head Wo Contrast (07/04/2024 11:19 AM [employer] LAYOUT DESIGNER) Only the most recent of2 resultswithin the time period is included. Anatomical Region Laterality Modality Head Computed Tomogra phy 07/04/2024 11:3 9 AM [employer] LAYOUT DESIGNER Impressions 07/04/2024 11:42 AM [employer] LAYOUT DESIGNER IMPRESSION: 1. Unchanged size of the bilateral subdural hematomas along the cerebral convexities measuring up to 5 mm in maximum thickness. Slightly increased attenuation is likely related to contrast staining from the previous examinations. > Interpreting Provider: Veda Monk MD on 07/04/2024 11:42 AM Narrative 07/04/2024 11:42 AM [employer] LAYOUT DESIGNER PROCEDURE: CT HEAD WO CONTRAST, DATE/TIME OF [...] * BLOOD TYPE VERIFICATION (07/04/2024 9:40 AM [employer]ATED [employer] IC LAYOUT DESIGNER) ABO Rh O POS 07/04/2024 10:38 AM [employer]ATED [employer] IC LAYOUT DESIGNER [facility] Blood Bank BLOOD SPECIMEN / Unknown Venipuncture / Unknown 07/04/2024 9:40 AM [employer] IC LAYOUT DESIGNER 07/04/2024 9:52 AM [employer] LAYOUT DESIGNER Cinthya Orantes MD LAB - BLOOD BAN K ORDERABLES Performing Organization Address City/[facility]/ZIP Co de Phone Number [facility] [address] [place] [address], [place] [phone] * TYPE + SCREEN PANEL (07/04/2024 9:38 AM INTEGRATED [employer] IC LAYOUT DESIGNER) Antibody Screen NEG 10:56 AM [employer]ATED [employer] IC LAYOUT DESIGNER [facility] ABO Rh O POS 07/04/2024 10:56 AM IN[employer]ATED [employer] IC LAYOUT DESIGNER [facility] Blood Bank BLOOD SPECIMEN / Unknown Venipuncture / Unknown 07/04/2024 9:38 AM [employer] IC LAYOUT DESIGNER 07/04/2024 9:51 AM [employer] LAYOUT DESIGNER Cinthya Orantes MD LAB - BLOOD BAN K ORDERABLES Performing Organization Address City/[facility] Co de Phone Number [facility] [address] [place] [address], [place] [phone] * EKG 12-LEAD (07/04/2024 6:31 AM INTE[employer]ATED [employer] IC LAYOUT DESIGNER) Ventricular Rate [address] [facility] Atrial Rate [address] [facility] P-R Interval [address] [facility] QRS Duration ms [address] [facility] Q-T Interval ms [address] [facility] QTC Calculation (Bezet) [address] [facility] Calculated P [place] [address] [facility] Calculated R [place] -[address] [facility] Calculated T [place] [address] [facility] Interpretation EKG NORMAL SINUS RHYTHM LOW VOLTAGE QRS SEPTAL INFARCT , AGE UNDETERMINED ABNORMAL ECG NO PREVIOUS ECGS AVAILABLE Confirmed by BERNADETTE ANDRADE, KATY ([id number]) on 07/13/2024 10:51:[address] [facility] 07/04/2024 6:31 AM [employer] IC LAYOUT DESIGNER 07/13/2024 10:51 PM [employer] IC LAYOUT DESIGNER Cinthya Orantes MD ECG ORDERABLES Performing Organization Address [facility] Co de Phone Number [facility] * PTT [facility] (07/04/2024 6:24 AM INTEGRATED [employer] IC LAYOUT DESIGNER) APTT 23.3 23.0 - 38.4 Seconds 07/04/2024 7:00 AM [facility] Comment:Suggested therapeuti c range for full dose I.V. unfractionated heparin therapy for venous thromboembolism is 71 to 109 seconds. Blood BLOOD SPECIMEN / Unknown Venipuncture / Unknown 07/04/2024 6:24 AM [employer] LAYOUT DESIGNER 07/04/2024 6:35 AM [employer] LAYOUT DESIGNER Cinthya Orantes MD LAB - COAGULATI ON ORDERABLES Performing Organization Address [facility] de Phone Number [address] [address], [place] [phone] * PT-INR [facility] (07/04/2024 6:24 AM IN[employer]ATED [employer] IC LAYOUT DESIGNER) PT 14.2 12.1 - 14.8 Seconds 07/04/2024 7:00 AM [facility] INR 1.1 See Comment 07/04/2024 7:00 AM [facility] Comment:The suggested therap eutic range for standard coumadin (warfarin) therapy is an INR of 2.0-3.0. For high-risk patients (Mechanical Mitral Valve Prosthesis, etc.), the suggested prophylactic therapeutic range is an INR of 2.5-3.5. Blood BLOOD SPECIMEN / Unknown Venipuncture / Unknown 07/04/2024 6:24 AM [employer] LAYOUT DESIGNER 07/04/2024 6:35 AM [employer] IC LAYOUT DESIGNER Cinthya Orantes MD LAB - COAGULATI ON ORDERABLES Performing Organization Address [facility] Co de Phone Number [address] [address] [phone] * CT CHEST ABDOMEN PELVIS W CONT - Abdomen-pelvis trauma, blunt or penetrating (07/04/2024 6:23 AM [employer] LAYOUT DESIGNER) Anatomical Region Laterality Modality Chest, Abdomen, Pelvis Computed Tomography 07/04/2024 6:27 AM [employer] LAYOUT DESIGNER Impressions 07/04/2024 9:01 AM [employer] LAYOUT DESIGNER Impression: 1.No acute visceral, vascular, or osseus injury identified in the chest, abdomen, or pelvis. 2.Ectatic ascending aorta. 3.Moderate hiatal hernia. 4.Soft tissue contusion of right gluteal region. 5.Enlarged prostate with mild bladder wall thickening with slightly trabeculated appearance and a few diverticula overall favored to be related to underlying chronic bladder outlet obstruction. > Dictated by Ant De Jesus MD (residential sales representative). IPuneet have personally reviewed and interpreted this examination/study. > Interpreting Provider: Puneet Perez on 07/04/2024 9:01 AM Narrative 07/04/2024 9:01 AM INTE[employer] LAYOUT DESIGNER PROCEDURE: CT CHEST ABDOMEN PELVIS W CONT, [...] Dictated by Ant De Jesus MD (residential sales representative). I, Puneet Perez have personally reviewed and interpreted this examination/study. > Interpreting Provider: Puneet Perez on 07/04/2024 9:01 AM Cinthya Orantes MD CT ORDERABLES * CT LUMBAR SPINE WO CONTRAST - T/L-spine trauma, Spine fracture (07/04/2024 6:23 AM INTEGRATED [employer] IC LAYOUT DESIGNER) Anatomical Region Laterality Modality Spine Computed Tomogra phy 07/04/2024 8:00 AM [employer]ATED [employer] IC LAYOUT DESIGNER Impressions 07/04/2024 11:32 AM INTE[employer]ATED [employer] IC LAYOUT DESIGNER IMPRESSION: 1. No evidence of acute fracture in the cervical, thoracic, or lumbar spine. 2. Multiple chronic findings as detailed in the report. > Dictated by Arnoldo Banks MD, (residential sales representative). I, Veda Monk MD have personally reviewed and interpreted this examination/study. > Interpreting Provider: Veda Monk MD on 07/04/2024 11:32 AM Narrative 07/04/2024 11:32 AM INTEGRATED CIRCUIT IC LAYOUT DESIGNER PROCEDURE: CT CERVICAL SPINE WO CONTRAST, CT [...] degrees of up to moderate facet osteoarthritis imcp-oz-ajdwarth neuroforaminal stenosis in the right L4-L5 neural [...] varyingdegrees of up to moderate facet osteoarthritis lixf-ey-ixkqxqmi neuroforaminal stenosis in the right L4-L5 neural foramina . IMPRESSION: 1. No evidence of acute fracture in the cervical, thoracic, or lumbar spine. 2. Multiple chronic findings as detailed in the report. > Dictated by Arnoldo Banks MD, (residential sales representative). I, Veda Monk MD have personally reviewed and interpreted this examination/study. > Interpreting Provider: Veda Monk MD on 07/04/2024 11:32 AM Cinthya Orantes MD CT ORDERABLES * CT THORACIC SPINE WO CONTRAST - T/L-spine trauma, spine fracture (07/04/2024 6:23 AM INTEGRATED CIRCUIT IC LAYOUT DESIGNER) Anatomical Region Laterality Modality Spine Computed Tomogra phy 07/04/2024 8:00 AM INTEGRATED CIRCUIT IC LAYOUT DESIGNER Impressions 07/04/2024 11:32 AM INTEGRATED CIRCUIT IC LAYOUT DESIGNER IMPRESSION: 1. No evidence of acute fracture in the cervical, thoracic, or lumbar spine. 2. Multiple chronic findings as detailed in the report. > Dictated by Arnoldo Banks MD, (residential sales representative). I, Veda Monk MD have personally reviewed and interpreted this examination/study. > Interpreting Provider: Veda Monk MD on 07/04/2024 11:32 AM Narrative 07/04/2024 11:32 AM INTE[employer]ATED CIRCUIT IC LAYOUT DESIGNER PROCEDURE: CT CERVICAL SPINE WO CONTRAST, CT [...] degrees of up to moderate facet osteoarthritis inde-yi-iyvamkkc neuroforaminal stenosis in the right L4-L5 neural [...] varyingdegrees of up to moderate facet osteoarthritis oqro-ti-yzxqgxib neuroforaminal stenosis in the right L4-L5 neural foramina . IMPRESSION: 1. No evidence of acute fracture in the cervical, thoracic, or lumbar spine. 2. Multiple chronic findings as detailed in the report. > Dictated by Arnoldo Banks MD, (residential sales representative). I, Veda Monk MD have personally reviewed and interpreted this examination/study. > Interpreting Provider: Veda Monk MD on 07/04/2024 11:32 AM Cinthya Orantes MD CT ORDERABLES * CT CERVICAL SPINE WO CONTRAST - C-Spine Trauma, Spine fracture (07/04/2024 6:23 AM INTEGRATED CIRCUIT IC LAYOUT DESIGNER) Anatomical Region Laterality Modality Spine Computed Tomogra phy 07/04/2024 8:00 AM INTEGRATED CIRCUIT IC LAYOUT DESIGNER Impressions 07/04/2024 11:32 AM INTEGRATED CIRCUIT IC LAYOUT DESIGNER IMPRESSION: 1. No evidence of acute fracture in the cervical, thoracic, or lumbar spine. 2. Multiple chronic findings as detailed in the report. > Dictated by Arnoldo Banks MD, (residential sales representative). I, Veda Monk MD have personally reviewed and interpreted this examination/study. 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 IMPRESSION: 1. No evidence of acute fracture in the cervical, thoracic, or lumbar spine. 2. Multiple chronic findings as detailed in the report. > Dictated by Arnoldo Banks MD, (residential sales representative). I, Veda Monk MD have personally reviewed and interpreted this examination/study. > Interpreting Provider: Veda Monk MD on 07/04/2024 11:32 AM Cinthya Orantes MD CT ORDERABLES * (ABNORMAL) TEG 6 GLOBAL HEMOSTASIS W/ LYSIS (07/04/2024 6:00 AM INTEGRATED CIRCUIT IC LAYOUT DESIGNER) Citrated Kaolin R (Reaction Time) 2.6(L) 4.6 - 9.1 min 07/04/2024 7:39 AM [facility] Comment:CK R result below no rmal range. Consistent with hypercoagulable clotting factors. Citrated Kaolin LY30 (Lysis) 0.0 0.0 - 2.6 % 07/04/2024 7:39 AM [facility] Citrated Functional Fibrinogen MA (Max Amplitude) 13.1(L) 15.0 - 32.0 mm 07/04/2024 7:39 AM [facility] Comment:CFF MA below normal range. Consistent with decreased fibrinogen contribution to clot strength. Citrated RapidTEG MA (Max Amplitude) 49.6(L) 52.0 - 70.0 mm 07/04/2024 7:39 AM [facility] Comment:VIDEO ARCADE MANAGER MA below normal range. Consistent with reduced clot strength from platelets or fibrinogen. Compare with CFF MA. Blood BLOOD SPECIMEN / Unknown Venipuncture / Unknown 07/04/2024 6:00 AM INTEGRATED CIRCUIT IC LAYOUT DESIGNER 07/04/2024 6:37 AM INTEGRATED CIRCUIT IC LAYOUT DESIGNER Cinthya Orantes MD LAB - HEMATOLOG Y ORDERABLES [facility] [address] [place] [address], [facility] [phone] * (ABNORMAL) TEG 6S PLATELET MAPPING (07/04/2024 6:00 AM [facility]) TEGPLM (Max Amplitude) [place] 52.8(L) 53.0 - 68.0 mm 07/04/2024 7:23 AM [facility] TEGPLM (Max Amplitude) ACTF 3.6 2.0 - 19.0 mm 07/04/2024 7:23 AM [facility] TEGPLM (Max Amplitude) ADP 16.8(L) 45.0 - 69.0 mm 07/04/2024 7:23 AM [facility] Comment:ADP MA below normal range. Inhibition present. TEGPLM (Max Amplitude) AA 8.1(L) 51.0 - 71.0 mm 07/04/2024 7:23 AM [facility] Comment:AA MA below normal r ct. Inhibition present. TEGPLM %Inhibition ADP 73.2(H) 0.0 - 17.0 % 07/04/2024 7:23 AM [facility] TEGPLM %Inhibition AA 90.9(H) 0.0 - 11.0 % 07/04/2024 7:23 AM [facility] TEGPLM %Aggregation ADP 26.8(L) 83.0 - 100.0 % 07/04/2024 7:23 AM [facility] TEGPLM % Aggregation AA 9.1(L) 89.0 - 100.0 % 07/04/2024 7:23 AM [facility] Blood BLOOD SPECIMEN / Unknown Venipuncture / Unknown 07/04/2024 6:00 AM IN[employer]ATED [employer] IC LAYOUT DESIGNER 07/04/2024 6:37 AM INTEGRATED CIRCUIT IC LAYOUT DESIGNER Cinthya Orantes MD LAB - HEMATOLOG Y ORDERABLES Performing Organization Address [facility]/ZIP Co de Phone Number [address] [phone], [facility] [phone] * ALCOHOL ETHYL BLOOD (07/04/2024 6:00 AM INTEGRATED CIRCUIT IC LAYOUT DESIGNER) Ethanol (mg/dL) <10 <10 mg/dL 7:03 AM [facility] Ethanol Calculated (g/dL) <0.010 <=0.010 g/dL 07/04/2024 7:03 AM [facility] Blood BLOOD SPECIMEN / Unknown Venipuncture / Unknown 07/04/2024 6:00 AM INTE[employer]ATED CIRCUIT IC LAYOUT DESIGNER 07/04/2024 6:39 AM INTEGRATED CIRCUIT IC LAYOUT DESIGNER Narrative [facility] - 07/04/2024 7:03 AM INTEGRATED CIRCUIT IC LAYOUT DESIGNER Ethanol Interp <10: None Detected. Depression of MAIL SORTING SUPERVISOR: >100 mg/dl Potentially Critical: >250 mg/dl Potentially [...] LAB - CHEMISTRY ORDERABLES Performing Organization Address [facility]/ZIP Co de Phone Number [facility] [address] [place] [phone], [facility] [phone] * XR CHEST 1VW PORTABLE (07/04/2024 6:00 AM INTEGRATED CIRCUIT IC LAYOUT DESIGNER) Anatomical Region Laterality Modality Chest Digital Radiogra phy 07/04/2024 6:08 AM INTEGRATED CIRCUIT IC LAYOUT DESIGNER Impressions 07/04/2024 9:56 AM INTEGRATED CIRCUIT IC LAYOUT DESIGNER IMPRESSION: No acute pulmonary disease. Prominence of the aortic arch could indicate aortic dilatation. > Dictated by Pauline Bravo MD (residential sales representative) Elkin Esparza MD have personally reviewed and interpreted this examination/study. > Interpreting Provider: Elkin Eric MD on 07/04/2024 9:56 AM Narrative 07/04/2024 9:56 AM INTEGRATED CIRCUIT IC LAYOUT DESIGNER PROCEDURE: XR CHEST 1VW PORTABLE, DATE/TIME OF [...] > Dictated by Pauline Bravo MD (residential sales representative) Elkin Esparza MD have personally reviewed and interpreted this examination/study. > Interpreting Provider: Elkin Eric MD on 07/04/2024 9:56 AM Cinthya Orantes MD DIAGNOSTIC IMAG ING ORDERABLES * XR PELVIS 1 OR 2VW (07/04/2024 6:00 AM INTEGRATED CIRCUIT IC LAYOUT DESIGNER) Anatomical Region Laterality Modality Pelvis Digital Radiogra phy 07/04/2024 6:34 AM INTEGRATED CIRCUIT IC LAYOUT DESIGNER Impressions 07/04/2024 9:54 AM INTEGRATED CIRCUIT IC LAYOUT DESIGNER IMPRESSION: No acute fracture identified. Report dictated by Pauline Bravo MD (residential sales representative). Elkin Esparza MD have personally reviewed and interpreted this examination/study. > Interpreting Provider: Elkin Eric MD on 07/04/2024 9:54 AM Narrative 07/04/2024 9:54 AM INTEGRATED CIRCUIT IC LAYOUT DESIGNER PROCEDURE: XR PELVIS 1 OR 2VW, DATE/TIME [...] Report dictated by Pauline Bravo MD (residential sales representative). I, Elkin Erci MD have personally reviewed and interpreted this examination/study. > Interpreting Provider: Elkin Eric MD on 07/04/2024 9:54 AM Cinthya Orantes MD DIAGNOSTIC IMAG ING ORDERABLES from Last 3 Months Care Teams Billet Checker Relationship Specialty Start Date End Date Darren Butler DO [address] [place] [phone] PCP - General Internal Medicine 07/05/24
--- OUTSIDE RECORDS SUMMARY | 2024-08-14 06:10 | XMS_ITS | Referral Summary ---
Author Organization [facility] Address [address] [facility] [address] [facility] [place] [address] Care Team Providers Care Director Of Instrumental Music Name Role Phone Darren Butler DO Primary Care Provider [phone] Source Comments [facility],non-owned Affiliates and Associated Physician Practices is amultiple site organization consisting of ambulatory clinics and hospital sitesin [place], [place], [place] and [place]. This disclosure is being madepursuant to the Care Everywhere program and may not contain all information available regarding this patient. Last updated 18.[facility] Encounters Date Type Department Care Team Description 07/04/2024 5:49 AM [facility] - 07/10/2024 7:16 PM [facility] Hospital Encounter [facility] 8S ACUTE [address] [place] [address] Miguel Bhagat MD Mason, MD Rolanda Zapata, MD Lori Borjas, Jarret Durbin MD Trauma Discharge Disposition: Senior Living Facility 07/04/2024 Travel from Last 3 Months [...] care, and heating? Not very hard 07/05/2024 [facility] - Occupational Stress Questionnaire Answer Date Recorded [...] were you homeless or living in a senior care (including now)? No 07/05/2024 Sex and Gender Information Value Date Recorded Sex Assigned at Not on file Gender Identity Not on file Sexual Orientation Not on file Last Filed Vital Signs Vital Sign Reading Time Taken Comments Blood Pressure 129/91 07/10/2024 4:09 PM [facility] Pulse 81 07/10/2024 4:09 PM [facility] Temperature 36.8 C (98.2 F) 07/10/2024 4:09 PM [facility] Respiratory Rate 18 07/10/2024 4:09 PM [facility] Oxygen Saturation 95% 07/10/2024 4:09 PM [facility] Inhaled Oxygen Concentration - - Weight 72.5 kg (159 lb 13.3 oz) 07/10/2024 4:00 AM [facility] Height 177.8 cm (5' 10 ) 07/05/2024 8:22 PM [facility] Body Mass Index 22.93 07/05/2024 8:22 PM [facility] Functional Status Functional Status Response Date of [...] POINT OF CARE Routine 07/10/2024 11:33 AM [facility] PHOSPHORUS BLOOD Routine 07/09/2024 3:40 AM [facility] MAGNESIUM BLOOD Routine 07/09/2024 3:40 AM [facility] BASIC METABOLIC PANEL (CALCIUM TOTAL) Routine 07/09/2024 3:40 AM [facility] CBC W AUTO DIFFERENTIAL Routine 07/09/2024 3:39 AM [facility] PHOSPHORUS BLOOD Routine 07/08/2024 8:43 PM [facility] MAGNESIUM BLOOD Routine 07/08/2024 8:43 PM [facility] CBC W AUTO DIFFERENTIAL Routine 07/08/2024 8:43 PM [facility] BASIC METABOLIC PANEL (CALCIUM TOTAL) Routine 07/08/2024 8:43 PM [facility] PHOSPHORUS BLOOD Routine 07/07/2024 6:22 AM [facility] MAGNESIUM BLOOD Routine 07/07/2024 6:22 AM [facility] CBC W AUTO DIFFERENTIAL Routine 07/07/2024 6:22 AM [facility] BASIC METABOLIC PANEL (CALCIUM TOTAL) Routine 07/07/2024 6:22 AM [facility] CBC W AUTO DIFFERENTIAL Routine 07/06/2024 7:01 AM [facility] PHOSPHORUS BLOOD Routine 07/06/2024 7:00 AM [facility] MAGNESIUM BLOOD Routine 07/06/2024 7:00 AM [facility] BASIC METABOLIC PANEL (CALCIUM TOTAL) Routine 07/06/2024 7:00 AM [facility] SARS-COV-2 (COVID-19) RAPID STAT 07/05/2024 1:45 PM [facility] Fall, initial encounter CARDIAC EKG ORDER 07/05/2024 11: 30 AM [facility] PHOSPHORUS BLOOD STAT 07/05/2024 3:59 AM [facility] MAGNESIUM BLOOD STAT 07/05/2024 3:59 AM [facility] CBC W AUTO DIFFERENTIAL STAT 07/05/2024 3:59 AM [facility] BASIC METABOLIC PANEL (CALCIUM TOTAL) STAT 07/05/2024 3:59 AM [facility] URINALYSIS W/MICROSCOPIC NO CULTURE STAT 07/05/2024 3:59 AM [facility] URINE DRUG SCREEN IMMUNOASSAY STAT 07/05/2024 3:[address] HEAD WO CONTRAST STAT 07/04/2024 1 1:19 AM [facility] SDH (subdural hematoma) (HCC) BLOOD TYPE VERIFICATION STAT 07/04/2024 9:40 AM [facility] TYPE + SCREEN PANEL STAT 07/04/2024 9 :38 AM [facility] EKG 12-LEAD STAT 07/04/2024 6:31 AM [facility] Fall, initial encounter PTT [facility] STAT 07/04/2024 6:24 AM [facility] PT-INR [facility] STAT 07/04/2024 6:[address] LUMBAR SPINE WO CONTRAST STAT 07/04/2024 6:23 AM [facility] Fall, initial encounter CT THORACIC SPINE WO CONTRAST STAT 07/04/2024 6:23 AM [facility] Fall, initial encounter CT CHEST ABDOMEN PELVIS W CONT STAT 07/04/2024 6:23 AM [facility] Fall, initial encounter CT CERVICAL SPINE WO CONTRAST STAT 07/04/2024 6:23 AM [facility] Fall, initial encounter CT HEAD WO CONTRAST STAT 07/04/2024 6 :23 AM [facility] Fall, initial encounter TEG 6S PLATELET MAPPING STAT 07/04/2024 6:00 AM [facility] TEG 6 GLOBAL HEMOSTASIS W/ LYSIS STAT 07/04/2024 6:00 AM [facility] CBC W AUTO DIFFERENTIAL STAT 07/04/2024 6:00 AM [facility] BASIC METABOLIC PANEL (CALCIUM TOTAL) STAT 07/04/2024 6:00 AM [facility] ALCOHOL ETHYL BLOOD STAT 07/04/2024 6 :00 AM [facility] XR PELVIS 1 OR 2VW STAT 07/04/2024 6: 00 AM [facility] Fall, initial encounter XR CHEST 1VW PORTABLE STAT 07/04/2024 6:00 AM [facility] Fall, initial encounter from Last 3 Months Results * (ABNORMAL) GLUCOSE - POINT OF CARE (07/10/2024 11:33 AM [facility]) Pathologist [facility] Glucose WB/POC 131(H) 70 - 99 mg/dL 07/10/2024 3:47 PM [facility] Specimen Type Cap Fingerstick 2024 3:47 PM [facility] Blood BLOOD SPECIMEN / Unknown 07/10/2024 11:33 AM [facility] 07/10/2024 3:47 PM [facility] Cinthya Orantes MD LAB - POINT OF CARE ORDERABLES [address] [address], [place] [phone] * (ABNORMAL) BASIC METABOLIC PANEL (CALCIUM TOTAL) (07/09/2024 3:40 AM [facility]) Only the most recent of6 resultswithin the time period is included. Pathologist [facility] BUN 26 7 - 26 mg/dL 07/09/2024 4:55 AM [facility] Creatinine 1.05 0.71 - 1.16 mg/dL 07/09/2024 4:55 AM [facility] Sodium 139 136 - 145 mmol/L 07/09/2024 4:55 AM [facility] Potassium 4.2 3.5 - 4.5 mmol/L 07/09/2024 4:55 AM [facility] Chloride 108(H) 98 - 107 mmol/L 07/09/2024 4:55 AM [facility] CO2 24 22 - 29 mmol/L 07/09/2024 4:55 AM [facility] Glucose 85 70 - 99 mg/dL 07/09/2024 4:55 AM [facility] Calcium 8.1(L) 8.4 - 10.2 mg/dL 07/09/2024 4:55 AM [facility] Anion Gap 7 6 - 16 07/09/2024 4:55 AM [facility] BUN/Creatinine Ratio 25(H) 7 - 23 07/09/2024 4:55 AM [facility] Osmolality Calculated 292 275 - 295 mOsm/kg 07/09/2024 4:55 AM [facility] eGFR by CKD-EPI 71(L) >=90 mL/min/1.7 3 m2 07/09/2024 4:55 AM [facility] Blood BLOOD SPECIMEN / Unknown Lab Venipuncture / Unknown 07/09/2024 3:40 AM [facility] 07/09/2024 4:29 AM [facility] Cinthya Orantes MD LAB - CHEMISTRY ORDERABLES [facility] [address] [place] [address], [facility] [phone] * PHOSPHORUS BLOOD (07/09/2024 3:40 AM [facility]) Only the most recent of5 resultswithin the time period is included. Phosphorus 3.5 2.8 - 5.1 mg/dL 07/09/2024 4:55 AM [facility] Blood BLOOD SPECIMEN / Unknown Lab Venipuncture / Unknown 07/09/2024 3:40 AM [facility] 07/09/2024 4:29 AM [facility] Cinthya Orantes MD LAB - CHEMISTRY ORDERABLES Performing Organization Address City/[facility]/ZIP Co de Phone Number [address] [address], [facility] [phone] * MAGNESIUM BLOOD (07/09/2024 3:40 AM [facility]) Only the most recent of5 resultswithin the time period is included. Pathologist [facility] Magnesium 2.0 1.6 - 2.6 mg/dL 07/09/2024 4:55 AM [facility] Blood BLOOD SPECIMEN / Unknown Lab Venipuncture / Unknown 07/09/2024 3:40 AM [facility] 07/09/2024 4:29 AM [facility] Cinthya Orantes MD LAB - CHEMISTRY ORDERABLES Performing Organization Address [facility] Co de Phone Number [address] [address], [facility] [phone] * (ABNORMAL) CBC W AUTO DIFFERENTIAL (07/09/2024 3:39 AM [facility]) Only the most recent of6 resultswithin the time period is included. [facility] WBC 5.8 4.0 - 10.7 x10E9/L 07/09/2024 4:44 AM [facility] RBC Count 4.13(L) 4.30 - 5.80 x10E12/L 07/09/2024 4:44 AM [facility] Hemoglobin 12.2(L) 13.3 - 17.5 g/dL 07/09/2024 4:44 AM [facility] Hematocrit 36.8(L) 38.7 - 51.1 % 07/09/2024 4:44 AM [facility] MCV 89.1 80.0 - 98.0 fL 07/09/2024 4:44 AM [facility] MCH 29.5 26.7 - 33.6 pg 07/09/2024 4:44 AM [facility] MCHC 33.2 31.7 - 36.3 g/dL 07/09/2024 4:44 AM [facility] RDW-CV 14.0 11.3 - 14.8 % 07/09/2024 4:44 AM [facility] Platelet Count 105(L) 150 - 420 x10E9/L 07/09/2024 4:44 AM [facility] MPV 10.2 7.8 - 11.4 fL 07/09/2024 4:44 AM [facility] Neutrophil % 59.2 41.0 - 74.0 % 07/09/2024 4:44 AM [facility] Lymphocyte % 21.8 17.0 - 47.0 % 07/09/2024 4:44 AM [facility] Monocyte % 9.3 3.0 - 11.0 % 07/09/2024 4:44 AM [facility] Eosinophil % 8.8(H) 0.0 - 7.0 % 07/09/2024 4:44 AM [facility] Basophil % 0.7 0.0 - 1.6 % 07/09/2024 4:44 AM [facility] Immature Granulocytes % 0.2 0.0 - 1.0 % 07/09/2024 4:44 AM [facility] Neutrophil Absolute 3.42 1.60 - 7.50 x10E9/L 07/09/2024 4:44 AM [facility] Lymphocyte Absolute 1.26 1.00 - 4.40 x10E9/L 07/09/2024 4:44 AM [facility] Monocyte Absolute 0.54 0.15 - 1.00 x10E9/L 07/09/2024 4:44 AM [facility] Eosinophil Absolute 0.51 0.00 - 0.60 x10E9/L 07/09/2024 4:44 AM [facility] Basophil Absolute 0.04 0.00 - 0.13 x10E9/L 07/09/2024 4:44 AM [facility] Blood BLOOD SPECIMEN / Unknown Lab Venipuncture / Unknown 07/09/2024 3:39 AM [facility] 07/09/2024 4:27 AM [facility] Cinthya Orantes MD LAB - HEMATOLOG Y ORDERABLES [place] [address] [place] [address], [facility] [phone] * SARS-COV-2 (COVID-19) RAPID (07/05/2024 1:45 PM [facility]) COVID-19 PCR Not detected Not detected 07/05/19 2:26 PM [facility] Microbiology SPECIMEN FROM NASOPHARYNGEAL STRUCTURE / Unknown Collection / Unknown 07/05/2024 1:45 PM [facility] 07/05/2024 1:53 PM [facility] Narrative [facility] - 07/05/2024 2:26 PM [facility] The Cepheid Xpert Xpress SARS-COV-2 has been [...] Rivera MD LAB - MICROBIOLOGY O RDERABLES [facility] [address] [place] [address], [facility] [phone] * CARDIAC EKG ORDER (07/05/2024 11:30 AM [facility]) Narrative 07/05/2024 11:30 AM [facility] Ordered by an unspecified provider. Scanned Document CARDIAC SERVICES ORD ERABLES * (ABNORMAL) URINALYSIS W/MICROSCOPIC NO CULTURE (07/05/2024 3:59 AM [facility]) Color UA Yellow Straw, Yellow 07/05/2024 4:24 AM [facility] Clarity UA Slt Cloudy(A) Clear 07/05/2024 4:24 AM [facility] Specific Carroll UA 1.032(H) 1.005 - 1.030 07/05/2024 4:24 AM [facility] pH UA 5.0 5.0 - 8.0 pH 07/05/2024 4:24 AM [facility] Protein UA Negative Negative 07/05/2024 4:24 AM [facility] Glucose UA Negative Negative 07/05/2024 4:24 AM [facility] Ketone UA Trace(A) Negative 07/05/2024 4:24 AM [facility] Bilirubin UA Negative Negative 07/05/2024 4:24 AM [facility] Blood UA Negative Negative 07/05/2024 4:24 AM [facility] Nitrite UA Negative Negative 07/05/2024 4:24 AM [facility] Leukocyte Esterase Trace(A) Negative 07/05/2024 4:24 AM [facility] Urobilinogen UA Negative Negative mg/dL 07/05/2024 4:24 AM [facility] RBC UA 21-50(A) None Seen, 0-2, 3-5 /HPF 07/05/2024 4:24 AM [facility] WBC UA 11-20(A) None Seen, 0-5 /HPF 07/05/2024 4:24 AM [facility] Bacteria UA 1+(A) None /HPF 07/05/2024 4:24 AM [facility] Squamous Epithelial Cells UA None Seen None Seen, 0-2, 3-5 /HPF 07/05/2024 4:24 AM [facility] Amorphous Crystals Few(A) None /HPF 07/05/2024 4:24 AM [facility] Urine URINE SPECIMEN OBTAINED BY CLEAN CATCH PROCEDURE / Unknown Collection / Unknown 07/05/2024 3:59 AM [facility] 07/05/2024 4:03 AM [facility] - 07/05/2024 4:24 AM [facility] Cinthya Orantes MD LAB - URINALYSI S ORDERABLES [facility] [address] [place] [address], [facility] [phone] * (ABNORMAL) URINE DRUG SCREEN IMMUNOASSAY (07/05/2024 3:59 AM [facility]) [facility] Amphetamines Screen Urine Negative Negative : < 1000 ng/mL 07/05/2024 4:42 AM [facility] Barbiturates Screen Urine Positive(A) Negative : < 200 ng/mL 07/05/2024 4:42 AM [facility] Comment: Positive urine barbiturate screening results should be confirmed by another generally accepted non-immunological method such as gas chromatography or mass spectrometry. Benzodiazepine Screen Urine Negative Negative : < 200 ng/mL 07/05/2024 4:42 AM [facility] Opiates Urine Negative Negative : < 300 ng/mL 07/05/2024 4:42 AM [facility] Cocaine Metabolites Urine Negative Negative : < 300 ng/mL 07/05/2024 4:42 AM [facility] Phencyclidine Screen Urine Negative Negative : < 25 ng/ml 07/05/2024 4:42 AM [facility] Cannabinoids Screen Urine Negative Negative : <50 ng/mL 07/05/2024 4:42 AM [facility] Methadone Screen Urine Negative Negative : < 300 ng/mL 07/05/2024 4:42 AM [facility] Fentanyl Screen Urine Negative Negative : <1.5 ng/mL 07/05/2024 4:42 AM [facility] Urine URINE / Unknown Collection / Unknown 07/05/2024 3:59 AM [facility] 07/05/2024 4:04 AM [facility] Narrative [facility] - 07/05/2024 4:42 AM [facility] The Urine Toxicology Screening Panel does not screen for Propoxyphene, Meprobamate, Carisoprodol, Trazodone, hpbl-[id number] medications and/or volatiles (Acetone, Isopropanol, Methanol or Ethylene Glycol). Ethanol, Salicylate, Acetaminophen, Tricyclic Antidepressants and several therapeutic drugs may be individually assayed in serum or plasma specimen. Toxicology testing by the [facility] is an aid to medical diagnosis and treatment of patients. No documented chain of custody was maintained. Results are intended to be used for clinical purposes only. Cinthya Orantes MD LAB - URINE ANDRA TRIPP ORDERABLES [facility] [address] [place] [address], [facility] [phone] * CT Head Wo Contrast (07/04/2024 11:19 AM [facility]) Only the most recent of2 resultswithin the time period is included. Anatomical Region Laterality Modality Head Computed Tomogra phy 07/04/2024 11:3 9 AM [facility] Impressions 07/04/2024 11:42 AM [facility] IMPRESSION: 1. Unchanged size of the bilateral subdural hematomas along the cerebral convexities measuring up to 5 mm in maximum thickness. Slightly increased attenuation is likely related to contrast staining from the previous examinations. > Interpreting Provider: Veda Monk MD on 07/04/2024 11:42 AM Narrative 07/04/2024 11:42 AM [facility] PROCEDURE: CT HEAD WO CONTRAST, DATE/TIME OF [...] * BLOOD TYPE VERIFICATION (07/04/2024 9:40 AM [facility]) ABO Rh O POS 07/04/2024 10:38 AM [facility] Blood Bank BLOOD SPECIMEN / Unknown Venipuncture / Unknown 07/04/2024 9:40 AM [facility] 07/04/2024 9:52 AM [facility] Cinthya Orantes MD LAB - BLOOD BAN K ORDERABLES [facility] [address] [place] [address], [place] [phone] * TYPE + SCREEN PANEL (07/04/2024 9:38 AM [facility]) Antibody Screen NEG 10:56 AM [facility] ABO Rh O POS 07/04/2024 10:56 AM [facility] Blood Bank BLOOD SPECIMEN / Unknown Venipuncture / Unknown 07/04/2024 9:38 AM [facility] 07/04/2024 9:51 AM [facility] Cinthya Orantes MD LAB - BLOOD BAN K ORDERABLES Performing Organization Address [facility] Co de Phone Number [facility] [address] [place] [address], [place] [phone] * EKG 12-LEAD (07/04/2024 6:31 AM [facility]) Pathologist [facility] Ventricular Rate 60 BPM [facility] Atrial Rate 60 BPM [facility] P-R Interval 180 ms [facility] QRS Duration ms 80 ms [facility] Q-T Interval ms 418 ms [facility] QTC Calculation (Bezet) 418 ms [facility] Calculated P [place] 52 degrees [facility] Calculated R [place] -26 degrees [facility] Calculated T [place] 46 degrees [facility] Interpretation EKG NORMAL SINUS RHYTHM LOW VOLTAGE QRS SEPTAL INFARCT , AGE UNDETERMINED ABNORMAL ECG NO PREVIOUS ECGS AVAILABLE Confirmed by BERNADETTE ANDRADE, KATY ([id number]) on 07/13/2024 10:51:42 PM [facility] 07/04/2024 6:31 AM [facility] 07/13/2024 10:51 PM [facility] Cinthya Orantes MD ECG ORDERABLES Performing Organization Address [facility] Co de Phone Number [facility] * PTT [facility] (07/04/2024 6:24 AM [facility]) APTT 23.3 23.0 - 38.4 Seconds 07/04/2024 7:00 AM [facility] Comment:Suggested therapeuti c range for full dose I.V. unfractionated heparin therapy for venous thromboembolism is 71 to 109 seconds. Blood BLOOD SPECIMEN / Unknown Venipuncture / Unknown 07/04/2024 6:24 AM [facility] 07/04/2024 6:35 AM [facility] Cinthya Orantes MD LAB - COAGULATI ON ORDERABLES Performing Organization Address [facility] de Phone Number [address] [address], [facility] [phone] * PT-INR [facility] (07/04/2024 6:24 AM [facility]) PT 14.2 12.1 - 14.8 Seconds 07/04/2024 7:00 AM [facility] INR 1.1 See Comment 07/04/2024 7:00 AM [facility] Comment:The suggested therap eutic range for standard coumadin (warfarin) therapy is an INR of 2.0-3.0. For high-risk patients (Mechanical Mitral Valve Prosthesis, etc.), the suggested prophylactic therapeutic range is an INR of 2.5-3.5. Blood BLOOD SPECIMEN / Unknown Venipuncture / Unknown 07/04/2024 6:24 AM [facility] 07/04/2024 6:35 AM [facility] Cinthya Orantes MD LAB - COAGULATI ON ORDERABLES Performing Organization Address [facility] Co de Phone Number [address] [address], [facility] [phone] * CT CHEST ABDOMEN PELVIS W CONT - Abdomen-pelvis trauma, blunt or penetrating (07/04/2024 6:23 AM [facility]) Anatomical Region Laterality Modality Chest, Abdomen, Pelvis Computed Tomography 07/04/2024 6:27 AM [facility] Impressions 07/04/2024 9:01 AM [facility] Impression: 1.No acute visceral, vascular, or osseus injury identified in the chest, abdomen, or pelvis. 2.Ectatic ascending aorta. 3.Moderate hiatal hernia. 4.Soft tissue contusion of right gluteal region. 5.Enlarged prostate with mild bladder wall thickening with slightly trabeculated appearance and a few diverticula overall favored to be related to underlying chronic bladder outlet obstruction. > Dictated by Ant De Jesus MD (academic vice president). I, Puneet Perez have personally reviewed and interpreted this examination/study. > Interpreting Provider: Puneet Perez on 07/04/2024 9:01 AM Narrative 07/04/2024 9:01 AM [facility] PROCEDURE: CT CHEST ABDOMEN PELVIS W CONT, [...] > Dictated by Ant De Jesus MD (academic vice president). I, Puneet Perez have personally reviewed and interpreted this examination/study. > Interpreting Provider: Puneet Perez on 07/04/2024 9:01 AM Cinthya Orantes MD CT ORDERABLES * CT LUMBAR SPINE WO CONTRAST - T/L-spine trauma, Spine fracture (07/04/2024 6:23 AM [facility]) Anatomical Region Laterality Modality Spine Computed Tomogra phy 07/04/2024 8:00 AM [facility] Impressions 07/04/2024 11:32 AM [facility] IMPRESSION: 1. No evidence of acute fracture in the cervical, thoracic, or lumbar spine. 2. Multiple chronic findings as detailed in the report. > Dictated by Arnoldo Banks MD, (academic vice president). I, Veda Monk MD have personally reviewed and interpreted this examination/study. > Interpreting Provider: Veda Monk MD on 07/04/2024 11:32 AM Narrative 07/04/2024 11:32 AM [facility] PROCEDURE: CT CERVICAL SPINE WO CONTRAST, CT [...] degrees of up to moderate facet osteoarthritis [id number] neuroforaminal stenosis in the right L4-L5 neural [...] varyingdegrees of up to moderate facet osteoarthritis [id number] neuroforaminal stenosis in the right L4-L5 neural foramina . IMPRESSION: 1. No evidence of acute fracture in the cervical, thoracic, or lumbar spine. 2. Multiple chronic findings as detailed in the report. > Dictated by Arnoldo Banks MD, (academic vice president). Veda Esparza MD have personally reviewed and interpreted this examination/study. > Interpreting Provider: Veda Monk MD on 07/04/2024 11:32 AM Cinthya Orantes MD CT ORDERABLES * CT THORACIC SPINE WO CONTRAST - T/L-spine trauma, spine fracture (07/04/2024 6:23 AM [facility]) Anatomical Region Laterality Modality Spine Computed Tomogra phy 07/04/2024 8:00 AM [facility] Impressions 07/04/2024 11:32 AM [facility] IMPRESSION: 1. No evidence of acute fracture in the cervical, thoracic, or lumbar spine. 2. Multiple chronic findings as detailed in the report. > Dictated by Arnoldo Banks MD, (academic vice president). Veda Esparza MD have personally reviewed and interpreted this examination/study. > Interpreting Provider: Veda Monk MD on 07/04/2024 11:32 AM Narrative 07/04/2024 11:32 AM [facility] PROCEDURE: CT CERVICAL SPINE WO CONTRAST, CT [...] degrees of up to moderate facet osteoarthritis [id number] neuroforaminal stenosis in the right L4-L5 neural [...] varyingdegrees of up to moderate facet osteoarthritis [id number] neuroforaminal stenosis in the right L4-L5 neural foramina . IMPRESSION: 1. No evidence of acute fracture in the cervical, thoracic, or lumbar spine. 2. Multiple chronic findings as detailed in the report. > Dictated by Arnoldo Banks MD, (academic vice president). Veda Esparza MD have personally reviewed and interpreted this examination/study. > Interpreting Provider: Veda Monk MD on 07/04/2024 11:32 AM Cinthya Orantes MD CT ORDERABLES * CT CERVICAL SPINE WO CONTRAST - C-Spine Trauma, Spine fracture (07/04/2024 6:23 AM BASEBALL PITCHER) Anatomical Region Laterality Modality Spine Computed Tomogra phy 07/04/2024 8:00 AM [facility] PITCHER Impressions 07/04/2024 11:32 AM B[facility]BALL PITCHER IMPRESSION: 1. No evidence of acute fracture in the cervical, thoracic, or lumbar spine. 2. Multiple chronic findings as detailed in the report. > Dictated by Arnoldo Banks MD, (academic vice president). Veda Esparza MD have personally reviewed and interpreted this examination/study. > Interpreting Provider: Veda Monk MD on 07/04/2024 11:32 AM Narrative 07/04/2024 11:32 AM BASEBALL PITCHER PROCEDURE: CT CERVICAL SPINE WO CONTRAST, CT [...] degrees of up to moderate facet osteoarthritis ewwk-bm-klvoflpi neuroforaminal stenosis in the right L4-L5 neural [...] varyingdegrees of up to moderate facet osteoarthritis [id number]-[id number] neuroforaminal stenosis in the right L4-L5 neural foramina . IMPRESSION: 1. No evidence of acute fracture in the cervical, thoracic, or lumbar spine. 2. Multiple chronic findings as detailed in the report. > Dictated by Arnoldo Banks MD, (academic vice president). I, Veda Monk MD have personally reviewed and interpreted this examination/study. > Interpreting Provider: Veda Monk MD on 07/04/2024 11:32 AM Cinthya Orantes MD CT ORDERABLES * (ABNORMAL) TEG 6 GLOBAL HEMOSTASIS W/ LYSIS (07/04/2024 6:00 AM [facility]) Citrated Kaolin R (Reaction Time) 2.6(L) 4.6 - 9.1 min 07/04/2024 7:39 AM [facility] Comment:CK R result below no rmal range. Consistent with hypercoagulable clotting factors. Citrated Kaolin LY30 (Lysis) 0.0 0.0 - 2.6 % 07/04/2024 7:39 AM [facility] Citrated Functional Fibrinogen MA (Max Amplitude) 13.1(L) 15.0 - 32.0 mm 07/04/2024 7:39 AM [facility] Comment:CFF MA below normal range. Consistent with decreased fibrinogen contribution to clot strength. Citrated RapidTEG MA (Max Amplitude) 49.6(L) 52.0 - 70.0 mm 07/04/2024 7:39 AM [facility] Comment:POULTRY GRADER MA below normal range. Consistent with reduced clot strength from platelets or fibrinogen. Compare with CFF MA. Blood BLOOD SPECIMEN / Unknown Venipuncture / Unknown 07/04/2024 6:00 AM [facility] 07/04/2024 6:37 AM [facility] Cinthya Orantes MD LAB - HEMATOLOG Y ORDERABLES Performing Organization Address City/[facility]/ZIP Co de Phone Number [facility] [address] [place] [address], [facility] [phone] * (ABNORMAL) TEG 6S PLATELET MAPPING (07/04/2024 6:00 AM [facility]) TEGPLM (Max Amplitude) [place] 52.8(L) 53.0 - 68.0 mm 07/04/2024 7:23 AM [facility] TEGPLM (Max Amplitude) ACTF 3.6 2.0 - 19.0 mm 07/04/2024 7:23 AM [facility] TEGPLM (Max Amplitude) ADP 16.8(L) 45.0 - 69.0 mm 07/04/2024 7:23 AM [facility] Comment:ADP MA below normal range. Inhibition present. TEGPLM (Max Amplitude) AA 8.1(L) 51.0 - 71.0 mm 07/04/2024 7:23 AM [facility] Comment:AA MA below normal r ct. Inhibition present. TEGPLM %Inhibition ADP 73.2(H) 0.0 - 17.0 % 07/04/2024 7:23 AM [facility] TEGPLM %Inhibition AA 90.9(H) 0.0 - 11.0 % 07/04/2024 7:23 AM [facility] TEGPLM %Aggregation ADP 26.8(L) 83.0 - 100.0 % 07/04/2024 7:23 AM [facility] TEGPLM % Aggregation AA 9.1(L) 89.0 - 100.0 % 07/04/2024 7:23 AM [facility] Blood BLOOD SPECIMEN / Unknown Venipuncture / Unknown 07/04/2024 6:00 AM [facility] 07/04/2024 6:37 AM [facility] Cinthya Orantes MD LAB - HEMATOLOG Y ORDERABLES [facility] [address] [place] [address], [facility] [phone] * ALCOHOL ETHYL BLOOD (07/04/2024 6:00 AM [facility]) Ethanol (mg/dL) <10 <10 mg/dL 7:03 AM [facility] Ethanol Calculated (g/dL) <0.010 <=0.010 g/dL 07/04/2024 7:03 AM [facility] Blood BLOOD SPECIMEN / Unknown Venipuncture / Unknown 07/04/2024 6:00 AM [facility] 07/04/2024 6:39 AM [facility] Narrative [facility] - 07/04/2024 7:03 AM [facility] Ethanol Interp <10: None Detected. Depression of MEDICAL REGISTRAR: >100 mg/dl Potentially Critical: >250 mg/dl Potentially Fatal >400 mg/dl Ethanol in the patient's blood will contribute to the osmolar gap. Ethanol's contribution to the osmolar gap can be estimated by dividing the concentration of ethanol in mg/dL by 4.6. This test is for clinical use only and does not equal a JEREMY for legal purposes. Cinthya Orantes MD LAB - CHEMISTRY ORDERABLES [address] [address], [facility] [phone] * XR CHEST 1VW PORTABLE (07/04/2024 6:00 AM [facility]) Anatomical Region Laterality Modality Chest Digital Radiogra phy 07/04/2024 6:08 AM [facility] Impressions 07/04/2024 9:56 AM [facility] IMPRESSION: No acute pulmonary disease. Prominence of the aortic arch could indicate aortic dilatation. > Dictated by Pauline Bravo MD (academic vice president) I, Elkin Eric MD have personally reviewed and interpreted this examination/study. > Interpreting Provider: Elkin Eric MD on 07/04/2024 9:56 AM Narrative 07/04/2024 9:56 AM [facility] PROCEDURE: XR CHEST 1VW PORTABLE, DATE/TIME OF [...] dilatation. > Dictated by Pauline Bravo MD (academic vice president) Elkin Esparza MD have personally reviewed and interpreted this examination/study. > Interpreting Provider: Elkin Eric MD on 07/04/2024 9:56 AM Cinthya Orantes MD DIAGNOSTIC IMAG ING ORDERABLES * XR PELVIS 1 OR 2VW (07/04/2024 6:00 AM [facility]) Anatomical Region Laterality Modality Pelvis Digital Radiogra phy 07/04/2024 6:34 AM [facility] Impressions 07/04/2024 9:54 AM [facility] IMPRESSION: No acute fracture identified. Report dictated by Pauline Bravo MD (academic vice president). Elkin Esparza MD have personally reviewed and interpreted this examination/study. > Interpreting Provider: Elkin Eric MD on 07/04/2024 9:54 AM Narrative 07/04/2024 9:54 AM [facility] PROCEDURE: XR PELVIS 1 OR 2VW, DATE/TIME [...] identified. Report dictated by Pauline Bravo MD (academic vice president). I, Elkin Eric MD have personally reviewed and interpreted this examination/study. > Interpreting Provider: Elkin Eric MD on 07/04/2024 9:54 AM Cinthya Orantes MD DIAGNOSTIC IMAG ING ORDERABLES from Last 3 Months Care Teams Director Of Instrumental Music Relationship Specialty Start Date End Date Darren Butler DO [address] [place] [phone] PCP - General Internal Medicine 07/05/24
--- OUTSIDE RECORDS SUMMARY | 2024-08-14 06:10 | XMS_ITS | Encounter Summary ---
Author Organization [facility] Address [address] [place] [address] Care Team Providers Care Executive Administrative Assistant Name Role Phone Jeremy Carreon MD Primary Care Provider [phone] Encounter Details Date Type Department Care Team (Latest Contact Info) Description 03/27/2003 Outpatient Historical HIS [facility] SINAI Boyd, MD [facility] [address] [facility] [address] [place] [address] HYPERTENSION NOS (Primary Dx) Social History Tobacco Use Types Packs/Day Years Used Date Smoking Tobacco: Never Assessed Sex and Gender Information Value Date Recorded Sex Assigned at Not on file 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
--- OUTSIDE RECORDS SUMMARY | 2024-08-14 06:10 | XMS_ITS | Encounter Summary ---
Author Organization [facility] Address [address] [place] [address] Care Team Providers Care Lead Clinical Research Coordinator Name Role Phone Jeremy Carreon MD Primary Care Provider [phone] Encounter Details Date Type Department Care Team (Latest Contact Info) Description 12/10/2003 Outpatient Historical HIS [facility] SINAI Boyd, MD [facility] [address] [facility] [address] [place] [address] HYPERTENSION NOS (Primary Dx) Social History Tobacco Use Types Packs/Day Years Used Date Smoking Tobacco: Never Assessed Sex and Gender Information Value Date Recorded Sex Assigned at Not on file 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
--- OUTSIDE RECORDS SUMMARY | 2024-08-14 06:10 | XMS_ITS | Continuity of Care Document ---
Author Organization [facility] Address [address] [place] [address] [address] [place] [address] Phone Care Team Providers Care [employer] Resource Teacher Name Role Phone Carlos DICKINSON, Emy Unavailable [...] Providers Copied on Encounter [facility], [address], [place], [place], [id number], [place] tel:[phone] OPH CONSULT CAROL VALENTIN blurry vision (chief complaint) Cataract, nuclear sclerotic senile, bilateralEctrop ion of both eyes, unspecified ectropion type, unspecified eyelidVitreous degeneration of both eyes 1 Carlos Quevedo. [address] , [address], [place], [address], [place]. [phone] Referring Provider: Jeremy Carreon MD, [address], [place], [address]. tel:[phone] OFFICE/OUTPA TIENT VISIT, [facility], [address] [place] [address], [place], [place], [id number], [place] tel:[phone] OPH CONSULT CAROL VALENTIN dryness (chief complaint) Vitreous degeneration of both eyesCataract, nuclear sclerotic senile, bilateralEctrop ion of both eyes, unspecified ectropion type, unspecified eyelid 8 Carlos Quevedo. [address], [address], [place], [address], [place]. tel:[phone] Referring Provider: Emy Kingsley, [address], [place], [address]. tel:[phone] OFFICE/OUTPA TIENT VISIT, [facility], [address] [place] [address], [place], [place], [id number], [place] tel:[phone] OPH CONSULT CAROL VALENTIN blurry vision (chief complaint) Vitreous degeneration of both eyesCataract, nuclear sclerotic senile, bilateral 5 Carlos Quevedo. [address], [address], [place], [address], [place]. [phone] Referring Provider: Emy Kingsley, [address], [place], [address]. tel:[phone] OFFICE/OUTPA TIENT VISIT, [facility], [address] [place] [address], [place], [place], [id number], [place] tel:[phone] OPH CONSULT CAROL VALENTIN eyes doing well, without complaint. (chief complaint) Senile nuclear sclerosisVitreo us degeneration 2 Roque Nick. [address], [address], [place], [place], [id number] , [place]. [phone] Family History Family Member Type Diagnosis Age At Onset Mother Problem (finding) Glaucoma Payers Payer name Insurance type Covered democrat ID Authorhenry rainey(s) BARBARA HMO [id number] Social History Type Description Quantity Date Captured [...]
--- OUTSIDE RECORDS SUMMARY | 2024-08-14 06:10 | XMS_ITS | Encounter Summary ---
Author Organization [facility] Address [address] [place] [address] Care Team Providers Care Transfer Station Operator Name Role Phone Jeremy Carreon MD Primary Care Provider [phone] Encounter Details Date Type Department Care Team (Latest Contact Info) Description 03/17/2005 Outpatient Historical HIS [facility] SINAI Boyd, MD [place] [address] 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 Gender Identity Not on file Sexual Orientation [...] URINE ORDERABLES Final Result Performing Organization Address [facility] Phone Number INTERFACE SYSTEM Refer to [...] ORDERABLES Final Resu lt Performing Organization Address [facility] Co de Phone Number INTERFACE SYSTEM [...] ORDERABLES Final Resu lt Performing Organization Address [facility] Phone Number INTERFACE SYSTEM Refer to clinic/hospital department * TSH (03/17/2005 9:40 AM CDT) TSH 1.96 0.27 - 4.20 uU/mL INTERFACE SYSTEM 03/17/2005 9:40 AM CDT Aristeo Boyd MD CHEMISTRY ORDERABLES Final Resul t Performing Organization Address [facility] Phone Number INTERFACE SYSTEM Refer to clinic/hospital department * PSA (03/17/2005 9:40 AM CDT) PSA 1.5 0.0 - 4.0 ng/mL INTERFACE SYSTEM Comment:Performed on Donita M odular E170 System 03/17/2005 9:40 AM CDT Aristeo Boyd MD CHEMISTRY ORDERABLES Final Resul t Performing Organization Address [facility] Phone Number INTERFACE SYSTEM Refer to [...] 22 - 30 mmol/L INTERFACE SYSTEM 03/17/2005 9:4 0 AM CDT us Aristeo Boyd MD CHEMISTRY ORDERABLES Final Resul t INTERFACE SYSTEM Refer to clinic/hospital department documented in this encounter Visit Diagnoses Diagnosis Unspecified essential hypertension- Primary documented in this encounter Care Teams Transfer Station Operator Relationship Specialty Start Date End Date Jeremy Carreon MD [address] [place] [phone] PCP - General Internal Medicine 05/17/19 02/14/23 documented as of this encounter
--- NOTE | 2024-08-14 06:26 | ECG_ITS ---
Test Date: 2024-08-14 06:39:04 Measurements Intervals [place] Rate: 55 P: 1 NM: 188 QRS: -20 QRSD: 94 T: 63 QT: 413 QTc: 398 Interpretive Statements SINUS BRADYCARDIA LOW QRS VOLTAGE IN PRECORDIAL LEADS [QRS DEFLECTION < 1.0 mV IN CHEST LEADS] SEPTAL MYOCARDIAL INFARCTION , PROBABLY OLD [40+ ms Q WAVE IN V1/V2] Compared to ECG 08/08/2024 02:40:50 NO SIGNIFICANT CHANGES Electronically Signed On 08-14-2024 14:53:32 CDT by Cindi Fine M.D.
--- NOTE | 2024-08-14 06:43 | ED_ITS ---
HPI - General Adult General Chief complaint: Extremity Injury, Lower Stated complaint: R HIP PAIN S/P SLIDING OFF OF BED Time Seen by Provider: 08/14/24 05:53 History of Present Illness HPI narrative: Patient is an 83-year-old male who presents to the emergency department this morning status post a fall at his nursing facility. Patient was attempting to get out of bed and slid out of bed falling to the ground landing on his right hip. Patient admits that he was not ambulatory after the fall. Currently complaining of right hip pain but only when he is moved, when he is not moving his extremity he does not have any pain. Denies hitting his head, denies any loss of consciousness and denies any blood thinner use. Currently denying any additional symptoms or concerns at this time. Related Data Home Medications ?Medication ?Instructions ?Recorded ?Confirmed ?Last Taken ?Type cholecalciferol (vitamin D3) 50 50 mcg PO DAILY 05/23/20 08/14/24 08/13/24 History mcg (2,000 unit) capsule zinc 50 mg tablet 50 mg PO DAILY 05/23/20 08/14/24 08/13/24 History dietary supplement See Rx Instructions .Route .COMPLEX 03/10/21 08/14/24 Unknown History ascorbic acid (vitamin C) 500 mg 500 mg PO DAILY 08/14/24 08/14/24 08/13/24 History tablet (Vitamin C) donepezil 5 mg tablet 5 mg PO HS 08/14/24 08/14/24 08/13/24 History fluoxetine 10 mg capsule 10 mg PO QAM 08/14/24 08/14/24 08/13/24 History irbesartan 300 mg tablet 300 mg PO DAILY 08/14/24 08/14/24 08/13/24 History naproxen sodium 220 mg tablet 220 mg PO DAILY 08/14/24 08/14/24 08/13/24 History polyethylene glycol 3350 17 17 g PO .Q daily PRN constipation 08/14/24 08/14/24 Unknown History gram/dose oral powder primidone 50 mg tablet 12.5 mg PO HS 08/14/24 08/14/24 08/13/24 History spironolactone 25 mg tablet 25 mg PO DAILY 08/14/24 08/14/24 08/13/24 History Allergies Allergy/AdvReac Type Severity Reaction Status Date / Time amlodipine Allergy Intermediate HIVES, Verified 08/14/24 10:49 ITCHING hydrochlorothiazide Allergy Unknown RASH & Verified 08/14/24 10:49 ITCHING valsartan Allergy Unknown Hives Verified 08/14/24 10:49 Review of Systems 2 Review of Systems: All systems are reviewed and are negative unless stated otherwise in the HPI. [facility] Past Medical History Medical History Basal cell carcinoma of skin Chronic back pain Obstructive sleep apnea Neuropathy Dyslipidemia Left ventricular diastolic dysfunction, NYHA class 1 Essential hypertension Surgical History Surgical History History of basal cell carcinoma excision jaw History of tonsillectomy Family History Family History Father Hypertension, Onset Age: 88 Social History Social History Social History: Patient wishes to be DNR and his POA is Miguel Boggs who lives in [place]. Smoking packs per day: 0.5 Smoking cigarettes per day: 10.0 Years smoked: 2 Smoking pack-years: 1.00 Smoking status: Unknown if ever smoked Tobacco type: cigarettes Second hand tobacco smoke exposure: No Smoking end date: 06/06/1960 Alcohol intake: current Drinks per week: 1 Alcohol use details: a glass a wine Substance use: never Substance use type: does not use Do You Feel Safe in your Home?: No Lack of Transportation: No Lack of Food: Never True Current Housing: I Have Housing Concerned About Future Housing: No Difficulty Paying Gas/Electric Bills: No Difficulty Paying for Meds: No Currently Unemployed: No Education: Master's Degree or Higher Difficulty w/ Childcare or Family Care: No Living arrangements: assisted living Additional living arrangements comments: . Lives at [facility]. Occupation/Education: retired Additional occupation/education comments: [employer] Spiritual care concerns: No Agree to blood products: Yes Exam 2 Narrative: General: Alert, awake, afebrile, in no acute distress. HEENT: PERRL, no rhinorrhea, no post nasal drip, oropharynx clear. Neck: Trachea midline, no JVD, no lymphadenopathy. Cardiovascular: Regular rate and rhythm, no murmurs, rubs or gallops, no peripheral edema. Respiratory: Clear to auscultation bilaterally, no tachypnea, no wheezing, no rhonchi, no rubs, no respiratory distress. Abdomen: Soft, nontender, nondistended, no rebound, no guarding, no peritoneal signs. Musculoskeletal: Limited range of motion of the RLE at the hip joint secondary to pain, intact sensation and DP/PT pulses, patient is neurovascularly intact. Skin: No rashes or petechia, no signs of infection. Psychiatric: Alert and oriented, normal behavior and judgment for situation. Neurological: Alert and oriented to person, place, and time. Follows all commands. No focal deficits, speech is clear and fluent. Course Course Emergency Course: The patient was evaluated by myself in the emergency department. History is obtained from patient who is an independent historian and physical exam was performed. External medical records were reviewed at this time. IV was established and pertinent tests were ordered. EKG was obtained which revealed sinus bradycardia rate of 55 beats per minute. No evidence of acute ischemia. EKG was independently interpreted by me and is currently pending official cardiology read. Laboratory results obtained revealing no acute process. Imaging studies obtained included pelvis x-ray with right hip which was independently interpreted by me revealing a nondisplaced subcapital fracture of the proximal right femoral neck. Differential diagnosis considerations include fractures/dislocations. Comorbidities impacting this visit include none. I have evaluated and discussed social determinants of health with the patient that could potentially impact subsequent diagnosis and treatment plans. On repeat assessment of the patient, reevaluation revealed that the patient is doing well and is in no acute distress. Patient symptoms have improved since he arrived to our emergency department. Repeat vital signs were all reviewed and noted to be stable. Differential diagnosis and treatment plan were discussed with the patient at bedside. Patient agrees with discussion and after shared medical decision making agrees with admission. All questions were answered to the patient's satisfaction. Vital Signs Vital signs: Vital Signs Temperature 97.5 F L 08/14/24 05:52 Pulse Rate 63 08/14/24 05:52 Respiratory Rate 16 08/14/24 05:52 Blood Pressure 155/104 H 08/14/24 05:52 Pulse Oximetry 97 08/14/24 05:52 Temperature 99.6 F 08/14/24 14:00 Pulse Rate 51 L 08/14/24 14:00 Respiratory Rate 16 08/14/24 14:00 Blood Pressure 146/69 H 08/14/24 14:00 Pulse Oximetry 96 08/14/24 14:00 Medical Decision Making MDM Narrative Medical decision making narrative: The patient was evaluated by myself in the emergency department. History is obtained from patient who is an independent historian and physical exam was performed. External medical records were reviewed at this time. IV was established and pertinent tests were ordered. EKG was obtained which revealed sinus bradycardia rate of 55 beats per minute, no evidence of acute ischemia. EKG was independently interpreted by me and is currently pending official cardiology read. Laboratory results obtained revealing no acute process. Imaging studies obtained included pelvis x-ray with right hip which was independently interpreted by me revealing a nondisplaced subcapital fracture of the proximal right femoral neck. Differential diagnosis considerations include dislocation versus fracture. Comorbidities impacting this visit include none. I have evaluated and discussed social determinants of health with the patient that could potentially impact subsequent diagnosis and treatment plans. On repeat assessment of the patient, reevaluation revealed that the patient is doing well and is in no acute distress. Patient symptoms have improved since he arrived to our emergency department. Repeat vital signs were all reviewed and noted to be stable. Differential diagnosis and treatment plan were discussed with the patient at bedside. Patient agrees with discussion and after shared medical decision making agrees with admission. All questions were answered to the patient's satisfaction. Case was discussed with the on-call orthopedic surgeon Dr. Jacinto at 0715 and he agreed to evaluate the patient. Per his request, patient will be admitted to our medicine team. Patient was made NPO at this time, started on maintenance fluids with normal saline at a rate of 100 cc/hour. Patient was admitted to our medicine team in stable condition. Vital Signs Vital Signs: Vital Signs Temperature 97.5 F L 08/14/24 05:52 Pulse Rate 63 08/14/24 05:52 Respiratory Rate 16 08/14/24 05:52 Blood Pressure 155/104 H 08/14/24 05:52 Pulse Oximetry 97 08/14/24 05:52 Temperature 99.6 F 08/14/24 14:00 Pulse Rate 51 L 08/14/24 14:00 Respiratory Rate 16 08/14/24 14:00 Blood Pressure 146/69 H 08/14/24 14:00 Pulse Oximetry 96 08/14/24 14:00 Lab Data 08/14/24 06:48 08/14/24 06:48 Labs: Lab Results 08/14/24 Range/Units 06:48 WBC 8.1 (4.5-10.0) K/mm3 RBC 4.73 (4.6-6.20) M/mm3 Hgb 14.2 (14.0-18.0) g/dL Hct 44.6 (42.0-52.0) % MCV 94.3 (80-100) fl MCH 30.0 (26-34) pg MCHC 31.8 L (32-36) g/dl RDW 13.6 (11.5-14.5) % Plt Count 111 L (150-375) k/mm3 MPV 10.1 (7.4-10.4) fl Immature Gran % (Auto) 0.5 (0-0.5) % Neut % (Auto) 69.3 (45.5-73.1) % Lymph % (Auto) 19.1 (18.3-44.2) % [place] % (Auto) 6.6 (2.6-8.5) % Eos % (Auto) 3.9 (0-4.4) % Baso % (Auto) 0.6 (0.2-1.2) % Lymph # (Auto) 1.54 (0.9-3.2) K/mm3 [place] # (Auto) 0.5 (0.1-0.6) K/mm3 Eos # (Auto) 0.3 (0-0.3) K/mm3 Baso # (Auto) 0.1 (0.0-0.1) K/mm3 Abs Immat Gran (auto) 0.04 H (0.00-0.031) K/mm3 Absolute Neuts (auto) 5.6 (1.3-6.7) K/mm3 Absolute Nucleated RBC 0.000 (0.0-0.012) K/mm3 Nucleated RBC % 0.0 (0.0-0.2) % % Immature Plt Fraction 3.4 (0.9-11.2) % Sodium 138 (137-145) mmol/L Potassium 4.9 (3.4-5.0) mmol/L Chloride 108 H (98-107) mmol/L Carbon Dioxide 25 (22-30) mmol/L Anion Gap 5 (4-12) mmol/L BUN 29 H (9-20) mg/dL Creatinine 0.99 (0.7-1.3) mg/dL Estim Creat Clear Calc 55 ml/min Estimated GFR > 60 (59 - ) Glucose 88 (65-110) mg/dL Calcium 8.5 (8.4-10.2) mg/dL Total Bilirubin 0.9 (0.2-1.3) mg/dL AST 18 (17-59) U/L ALT 18 (6-50) U/L Alkaline Phosphatase 69 (38-126) U/L Total Protein 6.0 L (6.3-8.2) g/dL Albumin 3.6 (3.5-5.1) g/dL Urine Color Yellow (Yellow) Urine Appearance Turbid H (Clear) Urine pH 6.0 (5.0-9.0) Ur Specific [place] 1.017 (1.001-1.035) Urine Protein Trace (Negative) mg/dL Urine Glucose (UA) Negative (Negative) mg/dL Urine Ketones Trace H (Negative) mg/dL Ur Blood (Man) Negative (Negative) Urine Nitrate Negative (Negative) Urine Bilirubin Negative (Negative) Urine Urobilinogen 0.2 (<2.0) mg/dL Add Ur Microanalysis Reviewed Leukocyte Esterase Rfl 2+ H (Negative) BILLIE/UL Urine RBC 6-10 H (0-2) /hpf Urine WBC 6-10 H (0-3) /hpf Ur Squamous Epith Cells None seen (Few) /hpf Urine Bacteria 4+ /hpf Urine Casts 0-2 Blood Type O Positive Antibody Screen Negative Discharge Plan Discharge Clinical Impression: Ground-level fall Closed right hip fracture Qualifiers: Encounter type: initial encounter Qualified Code(s): S72.001A - Fracture of unspecified part of neck of right femur, initial encounter for closed fracture Patient Disposition: Still a Patient Condition: Stable Time of Disposition: 06:45
[2024-08-14 06:56] LABS: Basophils Absolute Auto 0.1 K/mm3 (0.0-0.1); Basophils Percent Auto 0.6 % (0.2-1.2); Eosinophils Absolute Auto 0.3 K/mm3 (0-0.3); Eosinophils Percent Auto 3.9 % (0-4.4); Hematocrit 44.6 % (42.0-52.0); Hemoglobin 14.2 g/dL (14.0-18.0); Immature Granulocyte Absolute 0.04 K/mm3 (0.00-0.031); Immature Granulocyte Percent A 0.5 % (0-0.5); Immature Platelet Fraction Pct 3.4 % (0.9-11.2); Lymphocytes Absolute Auto 1.54 K/mm3 (0.9-3.2); Lymphocytes Percent Auto 19.1 % (18.3-44.2); Mean Corpuscular HGB Conc 31.8 g/dl (32-36); Mean Corpuscular Volume 94.3 fl (80-100); Mean Platelet Volume 10.1 fl (7.4-10.4); Monocytes Absolute Auto 0.5 K/mm3 (0.1-0.6); Monocytes Percent Auto 6.6 % (2.6-8.5); Neutrophils Absolute Auto 5.6 K/mm3 (1.3-6.7); Neutrophils Percent Auto 69.3 % (45.5-73.1); Platelet Count Result 111 k/mm3 (150-375); Red Blood Count 4.73 M/mm3 (4.6-6.20); Red Cell Distribution Width 13.6 % (11.5-14.5); White Blood Count 8.1 K/mm3 (4.5-10.0)
[2024-08-14 07:06] LABS: Alanine Aminotransferase 18 U/L (6-50); Albumin Level 3.6 g/dL (3.5-5.1); Alkaline Phosphatase 69 U/L (38-126); Anion Gap 5 mmol/L (4-12); Aspartate Amino Transferase 18 U/L (17-59); Bilirubin,Total 0.9 mg/dL (0.2-1.3); Blood Urea Nitrogen 29 mg/dL (9-20); Calcium 8.5 mg/dL (8.4-10.2); Carbon Dioxide 25 mmol/L (22-30); Chloride 108 mmol/L (98-107); Estimated CRCL calculation 55 ml/min; Estimated Glomerular Filt Rate > 60; Glucose 88 mg/dL (65-110); Potassium 4.9 mmol/L (3.4-5.0); Sodium 138 mmol/L (137-145)
[2024-08-14 07:08] LABS: Add Urine Microscopic? YES; Appearance Urine Turbid (Clear); Bacteria Urine 4+ /hpf; Bilirubin Urine Negative (Negative); Blood Urine Negative (Negative); Color Urine Yellow (Yellow); Glucose Urine UA Negative (Negative); Ketones Urine Trace mg/dL (Negative); Leukocyte Esterase Ur 2+ LEU/UL (Negative); Need Manual Microscopic Reviewed; Nitrate Urine Negative (Negative); Non Pathogenic Casts 0-2; Protein Urine Trace mg/dL (Negative); Specific Grav Ur 1.017 (1.001-1.035); Squamous Epithelial Cell Urine None Seen /hpf (Few); Urobilinogen Urine 0.2 mg/dL (<2.0)
[2024-08-14 07:14] VITALS: BP 133/77; PULSE 53; RESP 17; O2SAT 97
[2024-08-14] MEDS: SODIUM CHLORIDE 0.9% IV 1,000 ML 100 ML IV CONT (07:38)
--- NOTE | 2024-08-14 07:41 | PC.NURSE ---
RICOBO per Dr. Payne to cancel LR med order.
--- NOTE | 2024-08-14 08:22 | PC.NURSE ---
This RN called pt's POA and gave an update. POA would like to be updated after pt's surgery.
--- NOTE | 2024-08-14 08:24 | PC.NURSE ---
This RN updated No at [facility].
[2024-08-14 09:15] LABS: Influenza A QL RT-PCR Negative (Negative); Influenza B QL RT-PCR Negative (Negative); RSV RNA, RT-PCR Negative (Negative); SARS-CoV-2 RNA PCR Negative (Negative)
--- NOTE | 2024-08-14 10:45 | PC.NURSE ---
This patient, Crow Smith III, was admitted to [facility] Surg Room 321-01. Patient/family oriented to hospital policies and general routines including ID bracelet, bed and alarms, visiting hours, pain management, procedures, bathroom and other care routines, personal items, smoking policy, room service/diet, and visiting hours. Information on how to activate the Rapid Response Team has been discussed. Patient/Family are encouraged to report perceived risks to care and to ask questions if they do not understand what they are told or what they should do.
--- NOTE | 2024-08-14 11:42 | P.CONOP_ITS ---
Assessment and Plan Assessment and plan (1) Closed right hip fracture: Qualifiers: Encounter type: initial encounter Qualified Code(s): S72.001A - Fracture of unspecified part of neck of right femur, initial encounter for closed fracture Code(s): S72.001A - Fracture of unspecified part of neck of right femur, initial encounter for closed fracture Status: Acute (2) Ground-level fall: Code(s): W18.30XA - Fall on same level, unspecified, initial encounter Status: Acute (3) Peripheral neuropathy: Code(s): G62.9 - Polyneuropathy, unspecified Status: Acute Assessment and Plan: Valgus impacted femoral neck fracture right hip. Frequent falls. Neuropathy. Lives at a memory care facility. Currently alert and oriented. Will benefit from percutaneous pinning with 3 cannulated screws. Risks, benefits, and alternatives discussed with the patient and his power of litigation attorney associate. Proceed with percutaneous pinning right hip. Anticipate partial weight-bearing for 6 weeks. History of Present Illness HPI Consult date: 08/14/24 Chief complaint: Hip Fracture Narrative: Patient complains of acute hip pain. Fell from standing height. Admitted through the emergency room for definitive management. No previous hip pain. Comfortable at rest. No numbness, tingling, or other associated symptoms. Review of Systems 2 Review of Systems: Denies loss of consciousness. All systems reviewed & are unremarkable except as noted in HPI and below PMFSH Past Medical History Medical History Basal cell carcinoma of skin Chronic back pain Obstructive sleep apnea Neuropathy Dyslipidemia Left ventricular diastolic dysfunction, NYHA class 1 Essential hypertension Surgical History Surgical History History of basal cell carcinoma excision jaw History of tonsillectomy Family History Family History Father Hypertension, Onset Age: 88 Social History Social History Social History: Patient wishes to be DNR and his POA is Miguel Boggs who lives in [place]. Smoking packs per day: 0.5 Smoking cigarettes per day: 10.0 Years smoked: 2 Smoking pack-years: 1.00 Smoking status: Unknown if ever smoked Tobacco type: cigarettes Second hand tobacco smoke exposure: No Smoking end date: 06/06/1960 Alcohol intake: current Drinks per week: 1 Alcohol use details: a glass a wine Substance use: never Substance use type: does not use Do You Feel Safe in your Home?: No Lack of Transportation: No Lack of Food: Never True Current Housing: I Have Housing Concerned About Future Housing: No Difficulty Paying Gas/Electric Bills: No Difficulty Paying for Meds: No Currently Unemployed: No Education: Master's Degree or Higher Difficulty w/ Childcare or Family Care: No Living arrangements: assisted living Additional living arrangements comments: . Lives at [facility]. Occupation/Education: retired Additional occupation/education comments: [employer] Spiritual care concerns: No Agree to blood products: Yes Meds Home Medications and Allergies Home Medications ?Medication ?Instructions ?Recorded ?Confirmed ?Type cholecalciferol (vitamin D3) 50 50 mcg PO DAILY 05/23/20 08/14/24 History mcg (2,000 unit) capsule zinc 50 mg tablet 50 mg PO DAILY 05/23/20 08/14/24 History dietary supplement See Rx Instructions .Route .COMPLEX 03/10/21 08/14/24 History finasteride 5 mg tablet (Proscar) 5 mg PO QAM #90 tabs 02/26/22 08/14/24 Rx losartan 100 mg tablet 100 mg PO DAILY #90 tabs 02/26/22 08/14/24 Rx atenolol 25 mg tablet 25 mg PO DAILY #90 tabs 03/08/22 08/14/24 Rx clonidine HCl 0.1 mg tablet 0.1 mg PO DAILY PRN hypertensive 03/08/22 08/14/24 Rx emergency 90 days #90 tabs tamsulosin 0.4 mg capsule See Rx Instructions .Route 06/23/22 08/14/24 Rx .COMPLEX #90 caps polymyxin B sulfate 10,000 2 drp RIGHT EYE QID 5 days #10 mL 02/15/24 08/14/24 Rx unit-trimethoprim 1 mg/mL eye drops gabapentin 100 mg capsule 100 mg PO BID #60 caps 05/07/24 08/14/24 Rx polymyxin B sulfate 10,000 1 drp RIGHT EYE Q3H 7 days #10 mL 08/08/24 08/14/24 Rx unit-trimethoprim 1 mg/mL eye drops ascorbic acid (vitamin C) 500 mg 500 mg PO DAILY 08/14/24 08/14/24 History tablet (Vitamin C) donepezil 5 mg tablet 5 mg PO HS 08/14/24 08/14/24 History fluoxetine 10 mg capsule 10 mg PO QAM 08/14/24 08/14/24 History irbesartan 300 mg tablet 300 mg PO DAILY 08/14/24 08/14/24 History naproxen sodium 220 mg tablet 220 mg PO DAILY 08/14/24 08/14/24 History polyethylene glycol 3350 17 17 g PO .Q daily PRN constipation 08/14/24 08/14/24 History gram/dose oral powder primidone 50 mg tablet 12.5 mg PO HS 08/14/24 08/14/24 History spironolactone 25 mg tablet 25 mg PO DAILY 08/14/24 08/14/24 History Allergies Allergy/AdvReac Type Severity Reaction Status Date / Time amlodipine Allergy Intermediate HIVES, Verified 08/14/24 10:49 ITCHING hydrochlorothiazide Allergy Unknown RASH & Verified 08/14/24 10:49 ITCHING valsartan Allergy Unknown Hives Verified 08/14/24 10:49 Vital Signs Vital Signs - 24 hr 08/14/24 05:52 08/14/24 07:14 Temperature 36.4 C L Pulse Rate 63 53 L Respiratory Rate 16 17 Blood Pressure 155/104 H 133/77 Pulse Oximetry 97 97 Exam 2 Narrative: No lower extremity deformity. Alert orient x3. Responsive. Moderate lower extremity edema. Wiggles toes with good strength. Diminished light touch sensation. Const: General: no acute distress Eyes: General: appearance normal, both eyes and all related structures Resp: Effort & Inspection: normal respiratory effort GI: GI Palp: Yes Soft to palpation and No Guarding due to palpation present (GI) Urinary Catheter: Urinary Catheter: patent and draining and urine clear Skin: General skin exam: no rashes or lesions noted Neuro: Speech: normal speech Other: Wiggles toes well. Capillary refill brisk. Distal light touch sensation intact. Dorsalis pedis pulse palpable. Extrem: Other: No edema. Psych: Mental Status: mental status grossly normal Results Labs 08/14/24 06:48 08/14/24 06:48 Labs: Abnormal lab results 08/14/24 Range/Units 06:48 MCHC 31.8 L (32-36) g/dl Plt Count 111 L (150-375) k/mm3 Abs Immat Gran (auto) 0.04 H (0.00-0.031) K/mm3 Chloride 108 H (98-107) mmol/L BUN 29 H (9-20) mg/dL Total Protein 6.0 L (6.3-8.2) g/dL Urine Appearance Turbid H (Clear) Urine Ketones Trace H (Negative) mg/dL Leukocyte Esterase Rfl 2+ H (Negative) BILLIE/UL Urine RBC 6-10 H (0-2) /hpf Urine WBC 6-10 H (0-3) /hpf H & H 08/14/24 Range/Units 06:48 Hgb 14.2 (14.0-18.0) g/dL Hct 44.6 (42.0-52.0) % All other labs normal. Quality VTE Prophylaxis VTE prophylaxis: mechanical ordered
[2024-08-14 14:00] VITALS: BP 146/69; PULSE 51; RESP 16; TEMP 37.6; O2SAT 96
--- NOTE | 2024-08-14 14:15 | P.HP_ITS ---
H&P: HPI History of Present Illness Date/Time: 08/14/24 14:15 Chief Complaint: Fall with right hip pain Narrative: 83-year-old male with history of basal cell carcinoma, CHF, hypertension and neuropathy presents the hospital with right hip pain after fall. Patient lives at a memory care facility. Patient states that he was in bed and slid out of bed falling onto his right side. Patient complains of pain with movement and muscle spasms. He denies pain at rest. He denies nausea vomiting fever chills. UA is turbid with 2+ leukocyte esterase, negative for nitrates, 4+ bacteria. EKG shows sinus bradycardia at 55. Right hip x-ray shows nondisplaced subcapsular fracture of the right proximal femoral neck. Orthopedics has consulted. Review of Systems 2 Review of Systems: 12 systems were reviewed and are negativ e except for as per HPI. [facility] Past Medical History Medical History Basal cell carcinoma of skin Chronic back pain Obstructive sleep apnea Neuropathy Dyslipidemia Left ventricular diastolic dysfunction, NYHA class 1 Essential hypertension Surgical History Surgical History History of basal cell carcinoma excision jaw History of tonsillectomy Family History Family History Father Hypertension, Onset Age: 88 Social History Social History Social History: Patient wishes to be DNR and his POA is Miguel Boggs who lives in [place]. Smoking packs per day: 0.5 Smoking cigarettes per day: 10.0 Years smoked: 2 Smoking pack-years: 1.00 Smoking status: Unknown if ever smoked Tobacco type: cigarettes Second hand tobacco smoke exposure: No Smoking end date: 06/06/1960 Alcohol intake: current Drinks per week: 1 Alcohol use details: a glass a wine Substance use: never Substance use type: does not use Do You Feel Safe in your Home?: No Lack of Transportation: No Lack of Food: Never True Current Housing: I Have Housing Concerned About Future Housing: No Difficulty Paying Gas/Electric Bills: No Difficulty Paying for Meds: No Currently Unemployed: No Education: Master's Degree or Higher Difficulty w/ Childcare or Family Care: No Living arrangements: assisted living Additional living arrangements comments: . Lives at [facility]. Occupation/Education: retired Additional occupation/education comments: [employer] Spiritual care concerns: No Agree to blood products: Yes Meds Home Medications and Allergies Home Medications ?Medication ?Instructions ?Recorded ?Confirmed ?Type cholecalciferol (vitamin D3) 50 50 mcg PO DAILY 05/23/20 08/14/24 History mcg (2,000 unit) capsule zinc 50 mg tablet 50 mg PO DAILY 05/23/20 08/14/24 History dietary supplement See Rx Instructions .Route .COMPLEX 03/10/21 08/14/24 History finasteride 5 mg tablet (Proscar) 5 mg PO QAM #90 tabs 02/26/22 08/14/24 Rx losartan 100 mg tablet 100 mg PO DAILY #90 tabs 02/26/22 08/14/24 Rx atenolol 25 mg tablet 25 mg PO DAILY #90 tabs 03/08/22 08/14/24 Rx clonidine HCl 0.1 mg tablet 0.1 mg PO DAILY PRN hypertensive 03/08/22 08/14/24 Rx emergency 90 days #90 tabs tamsulosin 0.4 mg capsule See Rx Instructions .Route 06/23/22 08/14/24 Rx .COMPLEX #90 caps polymyxin B sulfate 10,000 2 drp RIGHT EYE QID 5 days #10 mL 02/15/24 08/14/24 Rx unit-trimethoprim 1 mg/mL eye drops gabapentin 100 mg capsule 100 mg PO BID #60 caps 05/07/24 08/14/24 Rx polymyxin B sulfate 10,000 1 drp RIGHT EYE Q3H 7 days #10 mL 08/08/24 08/14/24 Rx unit-trimethoprim 1 mg/mL eye drops ascorbic acid (vitamin C) 500 mg 500 mg PO DAILY 08/14/24 08/14/24 History tablet (Vitamin C) donepezil 5 mg tablet 5 mg PO HS 08/14/24 08/14/24 History fluoxetine 10 mg capsule 10 mg PO QAM 08/14/24 08/14/24 History irbesartan 300 mg tablet 300 mg PO DAILY 08/14/24 08/14/24 History naproxen sodium 220 mg tablet 220 mg PO DAILY 08/14/24 08/14/24 History polyethylene glycol 3350 17 17 g PO .Q daily PRN constipation 08/14/24 08/14/24 History gram/dose oral powder primidone 50 mg tablet 12.5 mg PO HS 08/14/24 08/14/24 History spironolactone 25 mg tablet 25 mg PO DAILY 08/14/24 08/14/24 History Allergies Allergy/AdvReac Type Severity Reaction Status Date / Time amlodipine Allergy Intermediate HIVES, Verified 08/14/24 10:49 ITCHING hydrochlorothiazide Allergy Unknown RASH & Verified 08/14/24 10:49 ITCHING valsartan Allergy Unknown Hives Verified 08/14/24 10:49 Vital Signs Vital Signs - 24 hr 08/14/24 05:52 08/14/24 07:14 Temperature 97.5 F L Pulse Rate 63 53 L Respiratory Rate 16 17 Blood Pressure 155/104 H 133/77 Pulse Oximetry 97 97 Exam Narrative: General: Chronically a, appears stated age. HEENT: normocephalic, atraumatic. Mucous membranes moist. EOMI, PERRLA, bilateral sclera anicteric, no conjunctival injection. Neck supple without JVD, lymphadenopathy, or bruit. Respiratory: clear to ascultation bilaterally. No rales/rhonic/wheezes. Cardiovascular: Regular rate and rhythm, normal S1-S2 upon ascultation. No murmurs, rubs, or clicks. PMI is nondisplaced, capillary refill less than 3 second. Abdomen: Soft, round, no pulsatile masses, nondistended and nontender. No rebound, no guarding. No CVA tenderness, no hepatosplenomegaly. Bowel sounds present to all four quadrants. No high pitch or tinkling sounds, resonant to percussion. Extremities: No cyanosis, clubbing, or edema present. Pulses are palpable 2/2. right lower extremity limited region motion due to acute pain right lower extremity edema Neuro: Alert and orientated x 4. PERRLA. Cranial nerves 2-12 intact without focal deficit. Skin: Warm, dry, and intact, without rash, erythema, or lesion. Psych: pleasant, cooperative, normal speech, normal affect, no hallucinations, no dysarthia H&P: Results Labs Labs: Short CBC 08/14/24 Range/Units 06:48 WBC 8.1 (4.5-10.0) K/mm3 Hgb 14.2 (14.0-18.0) g/dL Hct 44.6 (42.0-52.0) % Plt Count 111 L (150-375) k/mm3 BMP 08/14/24 06:48 Sodium 138 Potassium 4.9 Chloride 108 H Carbon Dioxide 25 BUN 29 H Creatinine 0.99 Glucose 88 Calcium 8.5 Liver Function 08/14/24 Range/Units 06:48 Total Bilirubin 0.9 (0.2-1.3) mg/dL AST 18 (17-59) U/L ALT 18 (6-50) U/L Alkaline Phosphatase 69 (38-126) U/L Albumin 3.6 (3.5-5.1) g/dL Urine 08/14/24 Range/Units 06:48 Urine Color Yellow (Yellow) Urine Appearance Turbid H (Clear) Urine pH 6.0 (5.0-9.0) Ur Specific [place] 1.017 (1.001-1.035) Urine Protein Trace (Negative) mg/dL Urine Glucose (UA) Negative (Negative) mg/dL Assessment and Plan Assessment and plan (1) Ground-level fall: Code(s): W18.30XA - Fall on same level, unspecified, initial encounter Status: Acute Assessment and Plan: Fall out of bed (2) Closed right hip fracture: Qualifiers: Encounter type: initial encounter Qualified Code(s): S72.001A - Fracture of unspecified part of neck of right femur, initial encounter for closed fracture Code(s): S72.001A - Fracture of unspecified part of neck of right femur, initial encounter for closed fracture Status: Acute Assessment and Plan: Orthopedics consulted NPO Plan for OR tomorrow Pain control and bowel protocol Patient will need PT and OT after surgery (3) UTI (urinary tract infection): Code(s): N39.0 - Urinary tract infection, site not specified Status: Acute Assessment and Plan: On Rocephin Gentle IV hydration Culture and sensitivity pending (4) Essential hypertension: Code(s): I10 - Essential (primary) hypertension Status: Chronic (5) Left ventricular diastolic dysfunction, NYHA class 1: Code(s): I51.9 - Heart disease, unspecified Status: Acute Assessment and Plan: Gentle IV hydration due to UTI and NPO for surgery (6) Protein-calorie malnutrition, mild: Code(s): E44.1 - Mild protein-calorie malnutrition Status: Acute (7) Dementia: Code(s): F03.90 - Unspecified dementia, unspecified severity, without behavioral disturbance, psychotic disturbance, mood disturbance, and anxiety Status: Acute Assessment and Plan: Continue Aricept (8) Seizures: Code(s): R56.9 - Unspecified convulsions Status: Acute Assessment and Plan: Continue mysoline (9) CHF (congestive heart failure): Code(s): I50.9 - Heart failure, unspecified Status: Acute Assessment and Plan: Continue spironolactone Quality VTE Prophylaxis VTE prophylaxis: mechanical ordered Hospitalist MIPS Advance Care Plan I have confirmed that the patient's Advanced Care Plan is present, code status is documented, or surrogate decision maker is listed in patient medical record.: Yes Medication Reconciliation I have utilized all available resources to obtain, update and review the patients current medications (includes all prescriptions, OTC, herbals, cannabis, and nutritional supplements).: Yes
[2024-08-14] MEDS: methocarbamoL 500 MG TABLET PO ×2 (15:54→20:48)
[2024-08-14] MEDS: DOCUSATE SODIUM 100 MG CAPSULE PO (15:54)
[2024-08-14] MEDS: ACETAMINOPHEN 325 MG TABLET 650 MG PO ×2 (15:55→20:48)
[2024-08-14] MEDS: SODIUM CHLORIDE 0.9% IV 1,000 ML 75 ML IV CONT (16:12)
--- NOTE | 2024-08-14 18:00 | PC.NURSE ---
Pt's POA informed of procedure date and time change to 08/15/24 @ 12pm. POA understands and consent for surgery updated.
[2024-08-14 21:05] VITALS: BP 143/77; PULSE 63; RESP 16; TEMP 36.9; O2SAT 95
[2024-08-15] VITALS (14 sets, daily range): BP systolic 100–173; BP diastolic 52–76; PULSE 53–80; RESP 14–20; TEMP 36.3–36.9; O2SAT 91–100; BMI 22.6
[2024-08-15] MEDS: SODIUM CHLORIDE 0.9% IV 1,000 ML 75 ML IV CONT (06:24)
[2024-08-15 06:59] LABS: Basophils Absolute Auto 0.1 K/mm3 (0.0-0.1); Basophils Percent Auto 0.9 % (0.2-1.2); Eosinophils Absolute Auto 0.6 K/mm3 (0-0.3); Eosinophils Percent Auto 7.8 % (0-4.4); Hematocrit 37.9 % (42.0-52.0); Hemoglobin 12.1 g/dL (14.0-18.0); Immature Granulocyte Absolute 0.02 K/mm3 (0.00-0.031); Immature Granulocyte Percent A 0.3 % (0-0.5); Lymphocytes Absolute Auto 1.37 K/mm3 (0.9-3.2); Lymphocytes Percent Auto 18.4 % (18.3-44.2); Mean Corpuscular HGB Conc 31.9 g/dl (32-36); Mean Corpuscular Hemoglobin 29.8 pg (26-34); Mean Corpuscular Volume 93.3 fl (80-100); Mean Platelet Volume 10.4 fl (7.4-10.4); Monocytes Absolute Auto 0.5 K/mm3 (0.1-0.6); Monocytes Percent Auto 6.2 % (2.6-8.5); Neutrophils Absolute Auto 4.9 K/mm3 (1.3-6.7); Neutrophils Percent Auto 66.4 % (45.5-73.1); Platelet Count Result 115 k/mm3 (150-375); Red Blood Count 4.06 M/mm3 (4.6-6.20); Red Cell Distribution Width 13.3 % (11.5-14.5); White Blood Count 7.4 K/mm3 (4.5-10.0)
[2024-08-15 07:05] LABS: Anion Gap 4 mmol/L (4-12); Blood Urea Nitrogen 24 mg/dL (9-20); Calcium 7.9 mg/dL (8.4-10.2); Carbon Dioxide 25 mmol/L (22-30); Chloride 108 mmol/L (98-107); Estimated CRCL calculation 58 ml/min; Estimated Glomerular Filt Rate > 60; Glucose 85 mg/dL (65-110); Potassium 4.4 mmol/L (3.4-5.0); Sodium 137 mmol/L (137-145)
--- NOTE | 2024-08-15 08:46 | P.PNIM_ITS ---
Progress Note: A&P Assessment and Plan (1) Closed right hip fracture: Qualifiers: Encounter type: initial encounter Qualified Code(s): S72.001A - Fracture of unspecified part of neck of right femur, initial encounter for closed fracture Code(s): S72.001A - Fracture of unspecified part of neck of right femur, initial encounter for closed fracture Status: Acute Assessment and Plan: Orthopedics consulted, plan for OR today NPO Pain control and bowel protocol Patient will need PT and OT after surgery (2) Ground-level fall: Code(s): W18.30XA - Fall on same level, unspecified, initial encounter Status: Acute Assessment and Plan: Fall out of bed (3) UTI (urinary tract infection): Code(s): N39.0 - Urinary tract infection, site not specified Status: Acute Assessment and Plan: UA: 2+ Leuk Esterase, 6-10 RBC, 6-10 WBC, 4+ Bacteria UC obtained on 08/14, results pending previous micro reviewed started on Rocephin Gentle Hydration (4) Essential hypertension: Code(s): I10 - Essential (primary) hypertension Status: Chronic Assessment and Plan: 08/15: 143/76 Continue Irbesartan, Atenolol (5) Left ventricular diastolic dysfunction, NYHA class 1: Code(s): I51.9 - Heart disease, unspecified Status: Acute Assessment and Plan: Gentle IV hydration due to UTI and NPO for surgery (6) Protein-calorie malnutrition, mild: Code(s): E44.1 - Mild protein-calorie malnutrition Status: Acute (7) Dementia: Code(s): F03.90 - Unspecified dementia, unspecified severity, without behavioral disturbance, psychotic disturbance, mood disturbance, and anxiety Status: Acute Assessment and Plan: Continue Aricept (8) Seizures: Code(s): R56.9 - Unspecified convulsions Status: Acute Assessment and Plan: Continue mysoline (9) CHF (congestive heart failure): Code(s): I50.9 - Heart failure, unspecified Status: Acute Assessment and Plan: Continue spironolactone Time Spent With Patient Time: Subjective Date/time seen: 08/15/24 08:46 Interval history: 83-year-old male with history of basal cell carcinoma, CHF, hypertension and neuropathy presents the hospital with right hip pain after fall. Patient lives at a memory care facility. Patient states that he was in bed and slid out of bed falling onto his right side. 08/15/2024 Patient is sitting comfortably at bedside. Orthopedics planning for percutaneous pinning of the right hip today. Denies any pain rest, denies any numbness, tingling associated symptoms at this time. Surgical repair of right knee planned today. Plan for PT/OT post surgical repair. We will plan for continued treatment of UTI with Rocephin. Review of Systems Review of Systems: 12 systems were reviewed and are negativ e except for as per HPI. Exam Narrative: General: Chronically ill, appears stated age. HEENT: normocephalic, atraumatic. Mucous membranes moist. EOMI, PERRLA, bilateral sclera anicteric, no conjunctival injection. Neck supple without JVD, lymphadenopathy, or bruit. Respiratory: clear to ascultation bilaterally. No rales/rhonic/wheezes. Cardiovascular: Regular rate and rhythm, normal S1-S2 upon ascultation. No murmurs, rubs, or clicks. PMI is nondisplaced, capillary refill less than 3 second. Abdomen: Soft, round, no pulsatile masses, nondistended and nontender. No rebound, no guarding. No CVA tenderness, no hepatosplenomegaly. Bowel sounds present to all four quadrants. No high pitch or tinkling sounds, resonant to percussion. Extremities: No cyanosis, clubbing, or edema present. Pulses are palpable 2/2. right lower extremity limited region motion due to acute pain right lower extremity edema Neuro: Alert and orientated x 4. PERRLA. Cranial nerves 2-12 intact without focal deficit. Skin: Warm, dry, and intact, without rash, erythema, or lesion. Psych: pleasant, cooperative, normal speech, normal affect, no hallucinations, no dysarthia Objective Data Vital Signs Vital Signs: Vital Signs - 24 hr 08/14/24 14:00 08/14/24 20:30 08/14/24 21:05 Temperature 99.6 F 98.5 F Pulse Rate 51 L 63 Respiratory Rate 16 16 Blood Pressure 146/69 H 143/77 H Pulse Oximetry 96 95 Oxygen Delivery Room Air 08/15/24 05:26 Temperature 97.5 F L Pulse Rate 54 L Respiratory Rate 16 Blood Pressure 143/76 H Pulse Oximetry 96 Oxygen Delivery Intake/Output Intake/Output: Intake & Output 08/13/24 08/13/24 08/14/24 08/15/24 00:59 23:59 23:59 23:59 Intake Total 1991.7 485 Output Total 800 450 Balance 1191.7 35 Meds/Results Medications: Active Medications Generic Name Dose Route Start Last Admin Trade Name Freq PRN Reason Stop Dose Admin Acetaminophen 650 mg 08/14/24 15:00 08/15/24 06:20 Acetaminophen 325 Mg Tablet PO Not Given Q6H KAY Atenolol 25 mg 08/15/24 09:00 Atenolol 25 Mg Tablet PO DAILY KAY Docusate Sodium 100 mg 08/14/24 17:00 08/14/24 15:54 Docusate Sodium 100 Mg Capsule PO 100 mg BID KAY Administration Donepezil HCl 5 mg 08/15/24 21:00 Donepezil Hcl 5 Mg Tablet PO HS KAY Finasteride 5 mg 08/15/24 09:00 Finasteride 5 Mg Tablet PO QAM KAY Fluoxetine HCl 10 mg 08/15/24 09:00 Fluoxetine Hcl 10 Mg Capsule PO QAM KAY Gabapentin 100 mg 08/15/24 09:00 Gabapentin 100 Mg Capsule PO BID [facility] Hydromorphone HCl 0.5 mg 08/14/24 07:33 Hydromorphone Hcl Inj (*Crx) 1 Mg/Ml Syr IV PUSH Q4H PRN Pain Rated 7-10 Sodium Chloride 1,000 mls @ 75 mls/hr 08/14/24 14:30 08/15/24 06:24 Normal Saline Iv IV CONT 75 mls/hr .[id number] KAY Administration Lactated Ringer's 1,000 mls @ 30 mls/hr 08/14/24 14:40 Lr - Lactated Ringers Iv IV CONT .Q24H KAY Cefazolin Sodium 2 gm in 50 mls @ 100 mls/hr 08/15/24 10:00 Ancef 2 Gm/D5w 50 Ml IVPB 08/15/24 10:29 ONCE ONE Tranexamic Acid/Sodium Chloride 1,000 mg in 100 mls @ 200 mls/hr 08/15/24 10:00 Tranexamic Acid 1,000mg/[id number] IVPB 08/15/24 10:29 ONCE ONE Methocarbamol 500 mg 08/14/24 17:00 08/14/24 20:48 Methocarbamol 500 Mg Tablet PO 500 mg QID [facility] Administration Oxycodone HCl 5 mg 08/14/24 14:26 Oxycodone Hcl (*Crx) 5 Mg Tab Ir PO Q4H PRN Pain Rated 4-6 Oxycodone HCl 10 mg 08/14/24 14:26 Oxycodone Hcl (*Crx) 5 Mg Tab Ir PO Q4H PRN Pain Rated 7-10 Primidone 12.5 mg 08/15/24 21:00 Primidone 12.5 Mg Tablet PO HS [facility] Spironolactone 25 mg 08/15/24 09:00 Spironolactone 25 Mg Tablet PO DAILY [facility] Tamsulosin HCl 0.4 mg 08/15/24 09:00 Tamsulosin Hcl 0.4 Mg Capsule BY MOUTH QAM [facility] Radiology Results: ITS Impressions Hip/Pelvis X-Ray 08/14/24 06:25 Impression: Acute, essentially nondisplaced subcapital fracture of the proximal right femora l neck. Labs Labs: Laboratory Results - last 24 hr 08/14/24 08/15/24 08:28 06:21 WBC 7.4 RBC 4.06 L Hgb 12.1 L Hct 37.9 L MCV 93.3 MCH 29.8 MCHC 31.9 L RDW 13.3 Plt Count 115 L MPV 10.4 Immature Gran % (Auto) 0.3 Neut % (Auto) 66.4 Lymph % (Auto) 18.4 [place] % (Auto) 6.2 Eos % (Auto) 7.8 H Baso % (Auto) 0.9 Lymph # (Auto) 1.37 [place] # (Auto) 0.5 Eos # (Auto) 0.6 H Baso # (Auto) 0.1 Abs Immat Gran (auto) 0.02 Absolute Neuts (auto) 4.9 Absolute Nucleated RBC 0.000 Nucleated RBC % 0.0 % Immature Plt Fraction 3.0 Sodium 137 Potassium 4.4 Chloride 108 H Carbon Dioxide 25 Anion Gap 4 BUN 24 H Creatinine 0.91 Estim Creat Clear Calc 58 Estimated GFR > 60 Glucose 85 Calcium 7.9 L Influenza A (RT-PCR) Negative Influenza B (RT-PCR) Negative RSV (RT-PCR) Negative SARS-CoV-2 RNA (RT-PCR) Negative Quality VTE Prophylaxis VTE prophylaxis: mechanical ordered
[2024-08-15] MEDS: GABAPENTIN 100 MG CAPSULE PO ×2 (09:11→16:38)
[2024-08-15] MEDS: FLUoxetine HCL 10 MG CAPSULE PO (09:11)
--- NOTE | 2024-08-15 11:42 | WPDHPUPDATE1 ---
History and Physical Update Update Date/Time: 08/15/24 11:42 History and Physical has been reviewed, including an updated exam of the patient. There are NO changes in the patient's condition. Risks, benefits, and alternatives have been discussed and questions answered. Patient agrees to proceed with procedure.
--- NOTE | 2024-08-15 11:53 | P.PNAN_ITS ---
Anes - Initial Pre Proc Eval Procedure: Operation Date: 08/15/24 12:00 Proposed Procedures p Right Hip Pinning - Davie Jacinto MD Date/Time: 08/15/24 11:53 Surgeon: Kwadwo Guidry PA-C Pre Op Diagnosis: Hip Fracture Patient Data Age: 83 Gender: M Height: 1.8 m Weight: 73.7 kg Last Vital Signs Temp 36.5 C 08/15/24 11:10 Pulse 53 L 08/15/24 11:10 Resp 20 08/15/24 11:10 BP 173/75 H 08/15/24 11:10 Pulse Ox 95 08/15/24 11:10 O2 Del Method Room Air 08/15/24 11:10 Allergies Allergy/AdvReac Type Severity Reaction Status Date / Time amlodipine Allergy Intermediate HIVES, Verified 08/14/24 10:49 ITCHING hydrochlorothiazide Allergy Unknown RASH & Verified 08/14/24 10:49 ITCHING valsartan Allergy Unknown Hives Verified 08/14/24 10:49 Home Medications ?Medication ?Instructions ?Recorded ?Confirmed ?Type cholecalciferol (vitamin D3) 50 50 mcg PO DAILY 05/23/20 08/14/24 History mcg (2,000 unit) capsule zinc 50 mg tablet 50 mg PO DAILY 05/23/20 08/14/24 History dietary supplement See Rx Instructions .Route .COMPLEX 03/10/21 08/14/24 History finasteride 5 mg tablet (Proscar) 5 mg PO QAM #90 tabs 02/26/22 08/14/24 Rx losartan 100 mg tablet 100 mg PO DAILY #90 tabs 02/26/22 08/14/24 Rx atenolol 25 mg tablet 25 mg PO DAILY #90 tabs 03/08/22 08/14/24 Rx clonidine HCl 0.1 mg tablet 0.1 mg PO DAILY PRN hypertensive 03/08/22 08/14/24 Rx emergency 90 days #90 tabs tamsulosin 0.4 mg capsule See Rx Instructions .Route 06/23/22 08/14/24 Rx .COMPLEX #90 caps polymyxin B sulfate 10,000 2 drp RIGHT EYE QID 5 days #10 mL 02/15/24 08/14/24 Rx unit-trimethoprim 1 mg/mL eye drops gabapentin 100 mg capsule 100 mg PO BID #60 caps 05/07/24 08/14/24 Rx polymyxin B sulfate 10,000 1 drp RIGHT EYE Q3H 7 days #10 mL 08/08/24 08/14/24 Rx unit-trimethoprim 1 mg/mL eye drops ascorbic acid (vitamin C) 500 mg 500 mg PO DAILY 08/14/24 08/14/24 History tablet (Vitamin C) donepezil 5 mg tablet 5 mg PO HS 08/14/24 08/14/24 History fluoxetine 10 mg capsule 10 mg PO QAM 08/14/24 08/14/24 History irbesartan 300 mg tablet 300 mg PO DAILY 08/14/24 08/14/24 History naproxen sodium 220 mg tablet 220 mg PO DAILY 08/14/24 08/14/24 History polyethylene glycol 3350 17 17 g PO .Q daily PRN constipation 08/14/24 08/14/24 History gram/dose oral powder primidone 50 mg tablet 12.5 mg PO HS 08/14/24 08/14/24 History spironolactone 25 mg tablet 25 mg PO DAILY 08/14/24 08/14/24 History Laboratory Tests 08/15/24 06:21 WBC 7.4 K/mm3 (4.5-10.0) RBC 4.06 L M/mm3 (4.6-6.20) Hgb 12.1 L g/dL (14.0-18.0) Hct 37.9 L % (42.0-52.0) MCV 93.3 fl (80-100) MCH 29.8 pg (26-34) MCHC 31.9 L g/dl (32-36) RDW 13.3 % (11.5-14.5) Plt Count 115 L k/mm3 (150-375) MPV 10.4 fl (7.4-10.4) Immature Gran % (Auto) 0.3 % (0-0.5) Neut % (Auto) 66.4 % (45.5-73.1) Lymph % (Auto) 18.4 % (18.3-44.2) [place] % (Auto) 6.2 % (2.6-8.5) Eos % (Auto) 7.8 H % (0-4.4) Baso % (Auto) 0.9 % (0.2-1.2) Lymph # (Auto) 1.37 K/mm3 (0.9-3.2) [place] # (Auto) 0.5 K/mm3 (0.1-0.6) Eos # (Auto) 0.6 H K/mm3 (0-0.3) Baso # (Auto) 0.1 K/mm3 (0.0-0.1) Abs Immat Gran (auto) 0.02 K/mm3 (0.00-0.031) Absolute Neuts (auto) 4.9 K/mm3 (1.3-6.7) Absolute Nucleated RBC 0.000 K/mm3 (0.0-0.012) Nucleated RBC % 0.0 % (0.0-0.2) % Immature Plt Fraction 3.0 % (0.9-11.2) Sodium 137 mmol/L (137-145) Potassium 4.4 mmol/L (3.4-5.0) Chloride 108 H mmol/L (98-107) Carbon Dioxide 25 mmol/L (22-30) Anion Gap 4 mmol/L (4-12) BUN 24 H mg/dL (9-20) Creatinine 0.91 mg/dL (0.7-1.3) Estim Creat Clear Calc 58 ml/min Estimated GFR > 60 (59 - ) Glucose 85 mg/dL (65-110) Calcium 7.9 L mg/dL (8.4-10.2) Patient hx anesthesia problems: none Family hx anesthesia problems: none Results Review: All pre-operative results and documents have been reviewed as part of the pre- operative evaluation. [facility] Past Medical History Medical History Basal cell carcinoma of skin Chronic back pain Obstructive sleep apnea Neuropathy Dyslipidemia Left ventricular diastolic dysfunction, NYHA class 1 Essential hypertension Surgical History Surgical History History of basal cell carcinoma excision jaw History of tonsillectomy Family History Family History Father Hypertension, Onset Age: 88 Social History Social History Social History: Patient wishes to be DNR and his POA is Miguel Boggs who lives in [place]. Smoking packs per day: 0.5 Smoking cigarettes per day: 10.0 Years smoked: 2 Smoking pack-years: 1.00 Smoking status: Unknown if ever smoked Tobacco type: cigarettes Second hand tobacco smoke exposure: No Smoking end date: 06/06/1960 Alcohol intake: current Drinks per week: 1 Alcohol use details: a glass a wine Substance use: never Substance use type: does not use Do You Feel Safe in your Home?: No Lack of Transportation: No Lack of Food: Never True Current Housing: I Have Housing Concerned About Future Housing: No Difficulty Paying Gas/Electric Bills: No Difficulty Paying for Meds: No Currently Unemployed: No Education: Master's Degree or Higher Difficulty w/ Childcare or Family Care: No Living arrangements: assisted living Additional living arrangements comments: . Lives at [facility]. Occupation/Education: retired Additional occupation/education comments: [employer] Spiritual care concerns: No Agree to blood products: Yes Anes - Eval Final PreProcedure Day of Procedure 08/15/24 11:53 Patient weight: normal Heart: regular rate and rhythm Lungs: decreased breath sounds Neurological: alert and oriented Last oral intake: >/= 8 hours ASA classification: IV Emergent: no Anesthetic plan: proceed Anesthesia type and monitoring: general LMA and standard monitoring Results Review: All pre-operative results and documents have been reviewed as part of the pre- operative evaluation. Informed Consent: The patient's anesthetic plan and its attendant risks and benefits were discussed with the patient/family/POA. Questions were solicited and answers provided to the satisfaction of the patient/family/POA.
[2024-08-15] MEDS: ceFAZolin 2 GM/D5W 50 ML 2 GM/50 ML BAG IVPB ×2 (11:55→21:18)
[2024-08-15] MEDS: BUPIVACAINE/EPINEPHRINE 0.5% 10 ML VIAL 30 ML INFILTRATE (12:31)
[2024-08-15] MEDS: LACTATED RINGERS 1,000 ML 30 ML IV CONT (13:00)
[2024-08-15] MEDS: SODIUM CHLORIDE 0.9% IV 1,000 ML 125 ML IV CONT (14:39)
[2024-08-15] MEDS: ACETAMINOPHEN 325 MG TABLET 650 MG PO (14:39)
[2024-08-15] MEDS: methocarbamoL 500 MG TABLET PO ×3 (14:40→21:18)
--- NOTE | 2024-08-15 16:06 | P.OP_ITS ---
Procedure Note - Detailed Date of Procedure 08/15/24 Pre-op Diagnosis Impacted valgus femoral neck fracture right hip. Post-op Diagnosis Same Procedure Performed Percutaneous pinning right hip femoral neck fracture with 3 cannulated screws Surgeon Davie Jacinto MD Financial Auditor Mariann Oro RN-FA Anesthesia General Findings Excellent bone quality. Moderately valgus impacted femoral neck fracture. Description of Procedure Preoperative antibiotics were given. The patient was brought to the operating room. In general anesthetic was administered. The patient was carefully placed on the fracture table. By planar fluoroscopy was used to confirm maintenance of reduction and treatment of reduction as necessary. The hip was prepped and draped in usual sterile fashion with a sterile curtain. A stab incision was created at the inferior trochanter. The guide pin was placed into the center of the femoral neck inferiorly. Two additional guide pins were placed superiorly were inverted triangle shape. Measurements were taken and the outer cortex was drilled. Three partially-threaded cannulated screws were placed. The crease incisions were closed with interrupted 4-0 Monocryl suture followed by Steri- Strips. The sterile dressing was applied. The patient was transferred to the recovery room in stable condition and extubated. There were no complications. Implants 7.3 mm Synthes cannulated screws 60 mm thread 100 mm and 2, 90 mm screws Estimated Blood Loss 10 Urine Output 800 Drains No Packing No Pathology None sent Complications No immediate complications Condition Stable Disposition PACU [facility] Billing Surgery - Charge Forward: Surgery Billing
[2024-08-15] MEDS: SENNA/DOCUSATE SODIUM TABLET 2 TAB PO (16:39)
--- NOTE | 2024-08-15 16:41 | PCPTNOTE ---
Attempted PT eval at 15:50, per nursing pt is very lethargic from surgery, pt unable to participate in therapy at this time. appears confused and would momentarily open eyes unable to stay alert and awake.
[2024-08-15] MEDS: FAMOTIDINE 20 MG TABLET PO (21:18)
[2024-08-15] MEDS: PRIMIDONE 12.5 MG TABLET PO (21:19)
[2024-08-15] MEDS: DONEPEZIL HCL 5 MG TABLET PO (21:19)
[2024-08-15] MEDS: ENOXAPARIN 30 MG/0.3 ML SYRINGE SUB-Q (22:07)
[2024-08-15] MEDS: oxyCODONE HCL (*CRX) 5 MG TAB IR PO (22:55)
[2024-08-16 03:44] VITALS: BP 130/68; PULSE 56; RESP 16; TEMP 37; O2SAT 93
[2024-08-16] MEDS: ceFAZolin 2 GM/D5W 50 ML 2 GM/50 ML BAG IVPB ×2 (04:13→12:41)
[2024-08-16] MEDS: ACETAMINOPHEN 325 MG TABLET 650 MG PO ×4 (06:17→23:09)
[2024-08-16 06:33] LABS: Basophils Absolute Auto 0.1 K/mm3 (0.0-0.1); Basophils Percent Auto 0.7 % (0.2-1.2); Eosinophils Absolute Auto 0.7 K/mm3 (0-0.3); Eosinophils Percent Auto 9.5 % (0-4.4); Hemoglobin 11.9 g/dL (14.0-18.0); Immature Granulocyte Absolute 0.04 K/mm3 (0.00-0.031); Immature Granulocyte Percent A 0.5 % (0-0.5); Immature Platelet Fraction Pct 2.8 % (0.9-11.2); Lymphocytes Absolute Auto 1.36 K/mm3 (0.9-3.2); Lymphocytes Percent Auto 17.8 % (18.3-44.2); Mean Corpuscular HGB Conc 32.2 g/dl (32-36); Mean Corpuscular Hemoglobin 29.5 pg (26-34); Mean Corpuscular Volume 91.8 fl (80-100); Mean Platelet Volume 10.2 fl (7.4-10.4); Monocytes Absolute Auto 0.5 K/mm3 (0.1-0.6); Monocytes Percent Auto 6.1 % (2.6-8.5); Neutrophils Percent Auto 65.4 % (45.5-73.1); Platelet Count Result 108 k/mm3 (150-375); Red Blood Count 4.03 M/mm3 (4.6-6.20); Red Cell Distribution Width 13.3 % (11.5-14.5); White Blood Count 7.7 K/mm3 (4.5-10.0)
[2024-08-16 07:11] LABS: Anion Gap 7 mmol/L (4-12); Blood Urea Nitrogen 19 mg/dL (9-20); Calcium 7.9 mg/dL (8.4-10.2); Carbon Dioxide 22 mmol/L (22-30); Chloride 107 mmol/L (98-107); Estimated CRCL calculation 61 ml/min; Estimated Glomerular Filt Rate > 60; Glucose 83 mg/dL (65-110); Potassium 4.2 mmol/L (3.4-5.0); Sodium 136 mmol/L (137-145)
--- NOTE | 2024-08-16 07:28 | P.PNIM_ITS ---
Progress Note: A&P Assessment and Plan (1) Closed right hip fracture: Qualifiers: Encounter type: initial encounter Qualified Code(s): S72.001A - Fracture of unspecified part of neck of right femur, initial encounter for closed fracture Code(s): S72.001A - Fracture of unspecified part of neck of right femur, initial encounter for closed fracture Status: Acute Assessment and Plan: - POD 1 - Hip/pelvis x-ray :Acute, essentially nondisplaced subcapital fracture of the proximal right femoral neck - Post op care per ortho - Cefazolin X3 bags - DVT Prophylaxis Lovenox 30mg q12Hr - PT/OT- will appreciate recommendations (2) Ground-level fall: Code(s): W18.30XA - Fall on same level, unspecified, initial encounter Status: Acute Assessment and Plan: - Patient states that he was in bed and slid out of bed onto his right side. Denies any other pain anywhere other than the right hip. - Hip/pelvis x-ray :Acute, essentially nondisplaced subcapital fracture of the proximal right femoral neck (3) UTI (urinary tract infection): Code(s): N39.0 - Urinary tract infection, site not specified Status: Acute Assessment and Plan: - UA: 2+ Leuk Esterase, 6-10 RBC, 6-10 WBC, 4+ Bacteria - UC obtained on 08/14: Greater than 100,000 CFU/mL of Non-uropathogenic Gram positive organism. May represent colonizers from external and internal genitalia. No further testing(including susceptibility) will be performed. - Currently asymptomatic, no indication for continued Abx coverage - Gentle Hydration (4) Essential hypertension: Code(s): I10 - Essential (primary) hypertension Status: Chronic Assessment and Plan: 08/15: 143/76 Continue Irbesartan, Atenolol (5) Left ventricular diastolic dysfunction, NYHA class 1: Code(s): I51.9 - Heart disease, unspecified Status: Acute Assessment and Plan: Gentle IV hydration due to UTI and NPO for surgery (6) Protein-calorie malnutrition, mild: Code(s): E44.1 - Mild protein-calorie malnutrition Status: Acute (7) Dementia: Code(s): F03.90 - Unspecified dementia, unspecified severity, without behavioral disturbance, psychotic disturbance, mood disturbance, and anxiety Status: Acute Assessment and Plan: Continue Aricept (8) Seizures: Code(s): R56.9 - Unspecified convulsions Status: Acute Assessment and Plan: Continue mysoline (9) CHF (congestive heart failure): Qualifiers: Heart failure chronicity: unspecified Heart failure type: unspecified Qualified Code(s): I50.9 - Heart failure, unspecified Code(s): I50.9 - Heart failure, unspecified Status: Acute Assessment and Plan: Continue spironolactone Time Spent With Patient Time: Subjective Date/time seen: 08/16/24 07:28 Interval history: 83-year-old male with history of basal cell carcinoma, CHF, hypertension and neuropathy presents the hospital with right hip pain after fall. Patient lives at a memory care facility. Patient states that he was in bed and slid out of bed falling onto his right side. 08/16/2024 POD 1 of Percutaneous pinning right hip femoral neck fracture with 3 cannulated screws. Patient is sitting comfortably in chair eating breakfast. He endorses a 3/10 pain at the incision site, but denies any pain at rest and denies any numbness/tingling. He denies any chest pain, shortness of breath, abdominal pain, urinary pain/changes. Pt working with PT/OT, will continue to appreciate their recommendations. Review of Systems Review of Systems: 12 systems were reviewed and are negativ e except for as per HPI. Exam Narrative: General: Chronically ill, appears stated age. HEENT: normocephalic, atraumatic. Mucous membranes moist. EOMI, PERRLA, bilateral sclera anicteric, no conjunctival injection. Neck supple without JVD, lymphadenopathy, or bruit. Respiratory: clear to ascultation bilaterally. No rales/rhonic/wheezes. Cardiovascular: Regular rate and rhythm, normal S1-S2 upon ascultation. No murmurs, rubs, or clicks. PMI is nondisplaced, capillary refill less than 3 second. Abdomen: Soft, round, no pulsatile masses, nondistended and nontender. No rebound, no guarding. No CVA tenderness, no hepatosplenomegaly. Bowel sounds present to all four quadrants. No high pitch or tinkling sounds, resonant to percussion. Extremities: No cyanosis, clubbing, or edema present. Pulses are palpable 2/2. right lower extremity limited region motion due to acute pain right lower extremity edema Neuro: Alert and orientated x 4. PERRLA. Cranial nerves 2-12 intact without focal deficit. Skin: Warm, dry, and intact, without rash, erythema, or lesion. Psych: pleasant, cooperative, normal speech, normal affect, no hallucinations, no dysarthia Objective Data Vital Signs Vital Signs: Vital Signs - 24 hr 08/15/24 08:00 08/15/24 09:21 08/15/24 11:10 Temperature 97.7 F Pulse Rate 54 L 54 L 53 L Respiratory Rate 16 20 Blood Pressure 173/75 H Pulse Oximetry 96 95 Oxygen Delivery Room Air Room Air Oxygen Flow Rate 08/15/24 13:00 08/15/24 13:15 08/15/24 13:30 Temperature 98.5 F Pulse Rate 73 73 67 Respiratory Rate 16 14 14 Blood Pressure 100/52 L 140/66 121/73 Pulse Oximetry 100 100 97 Oxygen Delivery Simple Face Mask Simple Face Mask Room Air Oxygen Flow Rate 8 8 08/15/24 13:45 08/15/24 14:15 08/15/24 14:30 Temperature 97.3 F L 97.5 F L Pulse Rate 80 64 59 L Respiratory Rate 16 14 14 Blood Pressure 130/72 130/64 123/74 Pulse Oximetry 95 93 92 Oxygen Delivery Room Air Oxygen Flow Rate 08/15/24 15:00 08/15/24 16:00 08/15/24 20:00 Temperature 97.9 F 97.7 F Pulse Rate 55 L 60 Respiratory Rate 14 14 Blood Pressure 124/69 113/64 Pulse Oximetry 94 95 Oxygen Delivery Room Air Oxygen Flow Rate 08/15/24 20:45 08/16/24 03:44 Temperature 98.2 F 98.6 F Pulse Rate 57 L 56 L Respiratory Rate 18 16 Blood Pressure 122/69 130/68 Pulse Oximetry 93 93 Oxygen Delivery Oxygen Flow Rate Intake/Output Intake/Output: Intake & Output 08/13/24 08/14/24 08/15/24 08/16/24 23:59 23:59 23:59 23:59 Intake Total 1991.7 875 200 Output Total 800 1675 100 Balance 1191.7 -800 100 Meds/Results Medications: Active Medications Generic Name Dose Route Start Last Admin Trade Name Freq PRN Reason Stop Dose Admin Acetaminophen 650 mg 08/15/24 18:00 08/16/24 06:17 Acetaminophen 325 Mg Tablet PO 650 mg Q6HR KAY Administration Atenolol 25 mg 08/15/24 09:00 08/15/24 09:21 Atenolol 25 Mg Tablet PO Not Given DAILY KAY Donepezil HCl 5 mg 08/15/24 21:00 08/15/24 21:19 Donepezil Hcl 5 Mg Tablet PO 5 mg HS KAY Administration Enoxaparin Sodium 30 mg 08/15/24 21:00 08/15/24 22:07 Enoxaparin 30 Mg/0.3 Ml Syringe SUB-Q 30 mg Q12HR KAY Administration Famotidine 20 mg 08/15/24 21:00 08/15/24 21:18 Famotidine 20 Mg Tablet PO 20 mg Q12HR KAY Administration Finasteride 5 mg 08/15/24 09:00 08/15/24 09:21 Finasteride 5 Mg Tablet PO Not Given QAM KAY Fluoxetine HCl 10 mg 08/15/24 09:00 08/15/24 09:11 Fluoxetine Hcl 10 Mg Capsule PO 10 mg QAM KAY Administration Gabapentin 100 mg 08/15/24 09:00 08/15/24 16:38 Gabapentin 100 Mg Capsule PO 100 mg BID KAY Administration Hydromorphone HCl 0.5 mg 08/14/24 07:33 Hydromorphone Hcl Inj (*Crx) 1 Mg/Ml Syr IV PUSH Q4H PRN Pain Rated 7-10 Cefazolin Sodium 2 gm in 50 mls @ 100 mls/hr 08/15/24 20:00 08/16/24 04:13 Ancef 2 Gm/D5w 50 Ml IVPB 08/16/24 12:29 100 mls/hr Q8H KAY Administration Methocarbamol 500 mg 08/14/24 17:00 08/15/24 21:18 Methocarbamol 500 Mg Tablet PO 500 mg QID KAY Administration Naloxone HCl 0.1 mg 08/15/24 13:59 Naloxone Hcl 0.4 Mg/Ml Vial IV PUSH Q2M PRN Opiate Reversal Ondansetron HCl 4 mg 08/15/24 13:59 Ondansetron Inj 4 Mg/2 Ml Vial IV PUSH Q4H PRN Nausea And Vomiting Oxycodone HCl 5 mg 08/14/24 14:26 08/15/24 22:55 Oxycodone Hcl (*Crx) 5 Mg Tab Ir PO 5 mg Q4H PRN Administration Pain Rated 4-6 Oxycodone HCl 10 mg 08/14/24 14:26 Oxycodone Hcl (*Crx) 5 Mg Tab Ir PO Q4H PRN Pain Rated 7-10 Oxycodone/Acetaminophen 1 tablet 08/15/24 13:59 Oxycodone/Acetaminophen (*Crx) 5-325 Mg Tablet PO Q4H PRN Pain Rated 4-6 Oxycodone/Acetaminophen 1 tab 08/15/24 13:59 Oxycodone/Acetaminophen (*Crx) 10-325 Mg Tablet PO Q6H PRN Pain Rated 7-10 Polyethylene Glycol 17 gm 08/16/24 09:00 Polyethylene Glycol 3350 17 Gm Powd.Pack PO QAM KAY Primidone 12.5 mg 08/15/24 21:00 08/15/24 21:19 Primidone 12.5 Mg Tablet PO 12.5 mg HS KAY Administration Senna/Docusate Sodium 2 tab 08/15/24 17:00 08/15/24 16:39 Senna/Docusate Sodium Tablet PO 2 tab BID KAY Administration Spironolactone 25 mg 08/15/24 09:00 08/15/24 09:22 Spironolactone 25 Mg Tablet PO Not Given DAILY [facility] Tamsulosin HCl 0.4 mg 08/15/24 09:00 08/15/24 09:22 Tamsulosin Hcl 0.4 Mg Capsule BY MOUTH Not Given QAM [facility] Tramadol HCl 50 mg 08/15/24 13:59 Tramadol Hcl (*Crx) 50 Mg Tablet PO Q4H PRN Pain Rated 1-3 Radiology Results: ITS Impressions Hip/Pelvis X-Ray 08/14/24 06:25 Impression: Acute, essentially nondisplaced subcapital fracture of the proximal right femoral neck. Labs Labs: Laboratory Results - last 24 hr 08/16/24 06:08 WBC 7.7 RBC 4.03 L Hgb 11.9 L Hct 37.0 L MCV 91.8 MCH 29.5 MCHC 32.2 RDW 13.3 Plt Count 108 L MPV 10.2 Immature Gran % (Auto) 0.5 Neut % (Auto) 65.4 Lymph % (Auto) 17.8 L [place] % (Auto) 6.1 Eos % (Auto) 9.5 H Baso % (Auto) 0.7 Lymph # (Auto) 1.36 [place] # (Auto) 0.5 Eos # (Auto) 0.7 H Baso # (Auto) 0.1 Abs Immat Gran (auto) 0.04 H Absolute Neuts (auto) 5.0 Absolute Nucleated RBC 0.000 Nucleated RBC % 0.0 % Immature Plt Fraction 2.8 Sodium 136 L Potassium 4.2 Chloride 107 Carbon Dioxide 22 Anion Gap 7 BUN 19 Creatinine 0.87 Estim Creat Clear Calc 61 Estimated GFR > 60 Glucose 83 Calcium 7.9 L Quality VTE Prophylaxis VTE prophylaxis: mechanical ordered
[2024-08-16 07:44] VITALS: BP 155/81; PULSE 60; RESP 16; TEMP 36.1; O2SAT 96
[2024-08-16] MEDS: methocarbamoL 500 MG TABLET PO ×4 (09:00→20:24)
[2024-08-16] MEDS: polyethylene glycoL 3350 17 GM POWD.PACK PO (09:00)
[2024-08-16] MEDS: SENNA/DOCUSATE SODIUM TABLET 2 TAB PO ×2 (09:00→18:03)
[2024-08-16] MEDS: atenoloL 25 MG TABLET PO (09:01)
[2024-08-16] MEDS: SPIRONOLACTONE 25 MG TABLET PO (09:01)
[2024-08-16] MEDS: FAMOTIDINE 20 MG TABLET PO ×2 (09:01→20:23)
[2024-08-16] MEDS: GABAPENTIN 100 MG CAPSULE PO ×2 (09:01→18:03)
[2024-08-16] MEDS: TAMSULOSIN HCL 0.4 MG CAPSULE BY MOUTH (09:01)
[2024-08-16] MEDS: FINASTERIDE 5 MG TABLET PO (09:01)
[2024-08-16] MEDS: ENOXAPARIN 30 MG/0.3 ML SYRINGE SUB-Q ×2 (09:01→20:24)
[2024-08-16] MEDS: FLUoxetine HCL 10 MG CAPSULE PO (09:02)
--- NOTE | 2024-08-16 10:51 | P.CDI_ITS ---
CDI Query Clarification Request CHF has been documented, Please specify type and acuity of heart failure if known. * Acute * Chronic * Acute on Chronic * Unknown * Systolic * Diastolic * Combined Systolic and Diastolic * Unknown The medical chart reflects the followin-year-old male with history of basal cell carcinoma, CHF, hypertension and neuropathy presents the hospital with right hip pain after fall. Patient lives at a memory care facility. Patient states that he was in bed and slid out of bed falling onto his right side. (9) CHF (congestive heart failure): Code(s): I50.9 - Heart failure, unspecified Status: Acute Assessment and Plan: Continue spironolactone Received IV fluids, now dc'd
[2024-08-16 11:44] VITALS: BP 148/82; PULSE 51; RESP 16; TEMP 36.6; O2SAT 96
[2024-08-16 15:44] VITALS: BP 124/77; PULSE 54; RESP 16; TEMP 37.1; O2SAT 98
--- NOTE | 2024-08-16 16:37 | PM.PNORT ---
Progress Note: A&P Assessment and Plan (1) Closed right hip fracture: Qualifiers: Encounter type: initial encounter Qualified Code(s): S72.001A - Fracture of unspecified part of neck of right femur, initial encounter for closed fracture Code(s): S72.001A - Fracture of unspecified part of neck of right femur, initial encounter for closed fracture Status: Acute Assessment and Plan: Postop day 1: Percutaneous pinning right hip femoral neck fracture with 3 cannulated screws Patient tolerated procedure. Patient is more confused today. Not oriented to time or place. Spoke with nurse. Patient was more alert this morning. He did work with therapy and was able to ambulate with partial weightbearing and a walker. Patient complained of pain in the hip with motion. Patient will need rehab or SNF at discharge. Will continue to follow. Subjective Subjective Date/Time Seen: 08/16/24 16:37 Principal diagnosis: Hip Fracture. Interval history: Patient notes pain in the hip only with motion. No pain at rest. Patient is confused. He asked if this room was my apartment. He states he has not gotten up today. When I discussed with the nurse, he was up with therapy today and did well with partial weight bearing this morning. No other complaints. Review of Systems Review of Systems: All systems reviewed & are unremarkable except as noted in HPI and below Exam Narrative: Pleasant thin, elderly 83 y/o male. Confused to time and place. Dressing dry and intact without drainage. No drainage, erythema. Minimal ecchymosis. No warmth. No rash or lesions. Mild swelling. No calf or thigh tenderness. No distal edema. Pain with motion. Distal light touch sensation intact. Wiggles toes. Objective Data Vital Signs Vital Signs: Vital Signs - 24 hr 08/15/24 20:00 08/15/24 20:45 08/16/24 03:44 Temperature 98.2 F 98.6 F Pulse Rate 57 L 56 L Respiratory Rate 18 16 Blood Pressure 122/69 130/68 Pulse Oximetry 93 93 Oxygen Delivery Room Air 08/16/24 07:44 08/16/24 08:00 08/16/24 08:05 Temperature 97.0 F L Pulse Rate 60 Respiratory Rate 16 Blood Pressure 155/81 H Pulse Oximetry 96 Oxygen Delivery Room Air Room Air 08/16/24 11:44 Temperature 97.9 F Pulse Rate 51 L Respiratory Rate 16 Blood Pressure 148/82 H Pulse Oximetry 96 Oxygen Delivery Intake/Output Intake/Output: Intake & Output 08/13/24 08/14/24 08/15/24 08/16/24 23:59 23:59 23:59 23:59 Intake Total 1991.7 875 730 Output Total 800 1675 500 Balance 1191.7 -800 230 Meds/Results Medications: Active Medications Generic Name Dose Route Start Last Admin Trade Name Freq PRN Reason Stop Dose Admin Acetaminophen 650 mg 08/15/24 18:00 08/16/24 12:40 Acetaminophen 325 Mg Tablet PO 650 mg Q6HR KAY Administration Atenolol 25 mg 08/15/24 09:00 08/16/24 09:01 Atenolol 25 Mg Tablet PO 25 mg DAILY KAY Administration Donepezil HCl 5 mg 08/15/24 21:00 08/15/24 21:19 Donepezil Hcl 5 Mg Tablet PO 5 mg HS KAY Administration Enoxaparin Sodium 30 mg 08/15/24 21:00 08/16/24 09:01 Enoxaparin 30 Mg/0.3 Ml Syringe SUB-Q 30 mg Q12HR KAY Administration Famotidine 20 mg 08/15/24 21:00 08/16/24 09:01 Famotidine 20 Mg Tablet PO 20 mg Q12HR KAY Administration Finasteride 5 mg 08/15/24 09:00 08/16/24 09:01 Finasteride 5 Mg Tablet PO 5 mg QAM KAY Administration Fluoxetine HCl 10 mg 08/15/24 09:00 08/16/24 09:02 Fluoxetine Hcl 10 Mg Capsule PO 10 mg QAM KAY Administration Gabapentin 100 mg 08/15/24 09:00 08/16/24 09:01 Gabapentin 100 Mg Capsule PO 100 mg BID KAY Administration Hydromorphone HCl 0.5 mg 08/14/24 07:33 Hydromorphone Hcl Inj (*Crx) 1 Mg/Ml Syr IV PUSH Q4H PRN Pain Rated 7-10 Methocarbamol 500 mg 08/14/24 17:00 08/16/24 12:40 Methocarbamol 500 Mg Tablet PO 500 mg QID KAY Administration Naloxone HCl 0.1 mg 08/15/24 13:59 Naloxone Hcl 0.4 Mg/Ml Vial IV PUSH Q2M PRN Opiate Reversal Ondansetron HCl 4 mg 08/15/24 13:59 Ondansetron Inj 4 Mg/2 Ml Vial IV PUSH Q4H PRN Nausea And Vomiting Oxycodone HCl 5 mg 08/14/24 14:26 08/15/24 22:55 Oxycodone Hcl (*Crx) 5 Mg Tab Ir PO 5 mg Q4H PRN Administration Pain Rated 4-6 Oxycodone HCl 10 mg 08/14/24 14:26 Oxycodone Hcl (*Crx) 5 Mg Tab Ir PO Q4H PRN Pain Rated 7-10 Oxycodone/Acetaminophen 1 tablet 08/15/24 13:59 Oxycodone/Acetaminophen (*Crx) 5-325 Mg Tablet PO Q4H PRN Pain Rated 4-6 Oxycodone/Acetaminophen 1 tab 08/15/24 13:59 Oxycodone/Acetaminophen (*Crx) 10-325 Mg Tablet PO Q6H PRN Pain Rated 7-10 Polyethylene Glycol 17 gm 08/16/24 09:00 08/16/24 09:00 Polyethylene Glycol 3350 17 Gm Powd.Pack PO 17 gm QAM KAY Administration Primidone 12.5 mg 08/15/24 21:00 08/15/24 21:19 Primidone 12.5 Mg Tablet PO 12.5 mg HS KAY Administration Senna/Docusate Sodium 2 tab 08/15/24 17:00 08/16/24 09:00 Senna/Docusate Sodium Tablet PO 2 tab BID KAY Administration Spironolactone 25 mg 08/15/24 09:00 08/16/24 09:01 Spironolactone 25 Mg Tablet PO 25 mg DAILY KAY Administration Tamsulosin HCl 0.4 mg 08/15/24 09:00 08/16/24 09:01 Tamsulosin Hcl 0.4 Mg Capsule BY MOUTH 0.4 mg QAM KAY Administration Tramadol HCl 50 mg 08/15/24 13:59 Tramadol Hcl (*Crx) 50 Mg Tablet PO Q4H PRN Pain Rated 1-3 Radiology Results: ITS Impressions Hip/Pelvis X-Ray 08/14/24 06:25 Impression: Acute, essentially nondisplaced subcapital fracture of the proximal right femoral neck. Labs Labs: Laboratory Results - last 24 hr 08/16/24 06:08 WBC 7.7 RBC 4.03 L Hgb 11.9 L Hct 37.0 L MCV 91.8 MCH 29.5 MCHC 32.2 RDW 13.3 Plt Count 108 L MPV 10.2 Immature Gran % (Auto) 0.5 Neut % (Auto) 65.4 Lymph % (Auto) 17.8 L [place] % (Auto) 6.1 Eos % (Auto) 9.5 H Baso % (Auto) 0.7 Lymph # (Auto) 1.36 [place] # (Auto) 0.5 Eos # (Auto) 0.7 H Baso # (Auto) 0.1 Abs Immat Gran (auto) 0.04 H Absolute Neuts (auto) 5.0 Absolute Nucleated RBC 0.000 Nucleated RBC % 0.0 % Immature Plt Fraction 2.8 Sodium 136 L Potassium 4.2 Chloride 107 Carbon Dioxide 22 Anion Gap 7 BUN 19 Creatinine 0.87 Estim Creat Clear Calc 61 Estimated GFR > 60 Glucose 83 Calcium 7.9 L
--- NOTE | 2024-08-16 19:07 | PC.NURSE ---
Pt currently alert and orientated x2-3. Was able to recall name, [facility] and month stating his birthday is [birth year]. Intermittent confusion noted.
[2024-08-16] MEDS: PRIMIDONE 12.5 MG TABLET PO (20:24)
[2024-08-16] MEDS: DONEPEZIL HCL 5 MG TABLET PO (20:24)
[2024-08-16 20:25] VITALS: BP 160/68; PULSE 65; RESP 20; TEMP 36.8; O2SAT 96
[2024-08-17] VITALS (7 sets, daily range): BP systolic 106–160; BP diastolic 63–84; PULSE 51–70; RESP 16–20; TEMP 36.3–36.7; O2SAT 93–97
[2024-08-17] MEDS: ACETAMINOPHEN 325 MG TABLET 650 MG PO ×3 (04:55→18:37)
--- NOTE | 2024-08-17 07:04 | P.PNIM_ITS ---
Progress Note: A&P Assessment and Plan (1) Closed right hip fracture: Qualifiers: Encounter type: initial encounter Qualified Code(s): S72.001A - Fracture of unspecified part of neck of right femur, initial encounter for closed fracture Code(s): S72.001A - Fracture of unspecified part of neck of right femur, initial encounter for closed fracture Status: Acute Assessment and Plan: - POD 2 - Hip/pelvis x-ray :Acute, essentially nondisplaced subcapital fracture of the proximal right femoral neck - Post op care per ortho - Cefazolin X3 bags - DVT Prophylaxis Lovenox 30mg q12Hr - PT/OT- will appreciate recommendations (2) Ground-level fall: Code(s): W18.30XA - Fall on same level, unspecified, initial encounter Status: Acute Assessment and Plan: - Patient states that he was in bed and slid out of bed onto his right side. Denies any other pain anywhere other than the right hip. - Hip/pelvis x-ray :Acute, essentially nondisplaced subcapital fracture of the proximal right femoral neck (3) UTI (urinary tract infection): Code(s): N39.0 - Urinary tract infection, site not specified Status: Acute Assessment and Plan: - UA: 2+ Leuk Esterase, 6-10 RBC, 6-10 WBC, 4+ Bacteria - UC obtained on 08/14: Greater than 100,000 CFU/mL of Non-uropathogenic Gram positive organism. May represent colonizers from external and internal genitalia. No further testing(including susceptibility) will be performed. - Currently asymptomatic, no indication for continued Abx coverage - Gentle Hydration (4) Essential hypertension: Code(s): I10 - Essential (primary) hypertension Status: Chronic Assessment and Plan: 08/15: 143/76 Continue Irbesartan, Atenolol (5) Left ventricular diastolic dysfunction, NYHA class 1: Code(s): I51.9 - Heart disease, unspecified Status: Acute Assessment and Plan: Gentle IV hydration due to UTI and NPO for surgery (6) Protein-calorie malnutrition, mild: Code(s): E44.1 - Mild protein-calorie malnutrition Status: Acute (7) Dementia: Code(s): F03.90 - Unspecified dementia, unspecified severity, without behavioral disturbance, psychotic disturbance, mood disturbance, and anxiety Status: Acute Assessment and Plan: Continue Aricept (8) Seizures: Code(s): R56.9 - Unspecified convulsions Status: Acute Assessment and Plan: Continue mysoline (9) CHF (congestive heart failure): Qualifiers: Heart failure chronicity: unspecified Heart failure type: unspecified Qualified Code(s): I50.9 - Heart failure, unspecified Code(s): I50.9 - Heart failure, unspecified Status: Acute Assessment and Plan: Continue spironolactone Subjective Date/time seen: 08/17/24 07:04 Interval history: 83-year-old male with history of basal cell carcinoma, CHF, hypertension and neuropathy presents the hospital with right hip pain after fall. Patient lives at a memory care facility. Patient states that he was in bed and slid out of bed falling onto his right side. 08/17/2024 POD 2 of Percutaneous pinning right hip femoral neck fracture with 3 cannulated screws. Review of Systems Review of Systems: 12 systems were reviewed and are negativ e except for as per HPI. Exam Narrative: General: Chronically ill, appears stated age. HEENT: normocephalic, atraumatic. Mucous membranes moist. EOMI, PERRLA, bilateral sclera anicteric, no conjunctival injection. Neck supple without JVD, lymphadenopathy, or bruit. Respiratory: clear to ascultation bilaterally. No rales/rhonic/wheezes. Cardiovascular: Regular rate and rhythm, normal S1-S2 upon ascultation. No murmurs, rubs, or clicks. PMI is nondisplaced, capillary refill less than 3 second. Abdomen: Soft, round, no pulsatile masses, nondistended and nontender. No rebound, no guarding. No CVA tenderness, no hepatosplenomegaly. Bowel sounds present to all four quadrants. No high pitch or tinkling sounds, resonant to percussion. Extremities: No cyanosis, clubbing, or edema present. Pulses are palpable 2/2. right lower extremity limited region motion due to acute pain right lower extremity edema Neuro: Alert and orientated x 4. PERRLA. Cranial nerves 2-12 intact without focal deficit. Skin: Warm, dry, and intact, without rash, erythema, or lesion. Psych: pleasant, cooperative, normal speech, normal affect, no hallucinations, no dysarthia Objective Data Vital Signs Vital Signs: Vital Signs - 24 hr 08/16/24 07:44 08/16/24 08:00 08/16/24 08:05 Temperature 97.0 F L Pulse Rate 60 Respiratory Rate 16 Blood Pressure 155/81 H Pulse Oximetry 96 Oxygen Delivery Room Air Room Air 08/16/24 11:44 08/16/24 15:44 08/16/24 20:00 Temperature 97.9 F 98.8 F Pulse Rate 51 L 54 L Respiratory Rate 16 16 Blood Pressure 148/82 H 124/77 Pulse Oximetry 96 98 Oxygen Delivery Room Air 08/16/24 20:25 08/17/24 00:25 08/17/24 04:30 Temperature 98.3 F 98.1 F 98 F Pulse Rate 65 59 L 70 Respiratory Rate 20 20 16 Blood Pressure 160/68 H 159/82 H 160/84 H Pulse Oximetry 96 94 93 Oxygen Delivery Intake/Output Intake/Output: Intake & Output 08/14/24 08/15/24 08/16/24 08/17/24 23:59 23:59 23:59 23:59 Intake Total 1991.7 875 970 410 Output Total 800 1675 900 Balance 1191.7 -800 70 410 Meds/Results Medications: Active Medications Generic Name Dose Route Start Last Admin Trade Name Freq PRN Reason Stop Dose Admin Acetaminophen 650 mg 08/15/24 18:00 08/17/24 04:55 Acetaminophen 325 Mg Tablet PO 650 mg Q6HR KAY Administration Atenolol 25 mg 08/15/24 09:00 08/16/24 09:01 Atenolol 25 Mg Tablet PO 25 mg DAILY KAY Administration Donepezil HCl 5 mg 08/15/24 21:00 08/16/24 20:24 Donepezil Hcl 5 Mg Tablet PO 5 mg HS KAY Administration Enoxaparin Sodium 30 mg 08/15/24 21:00 08/16/24 20:24 Enoxaparin 30 Mg/0.3 Ml Syringe SUB-Q 30 mg Q12HR KAY Administration Famotidine 20 mg 08/15/24 21:00 08/16/24 20:23 Famotidine 20 Mg Tablet PO 20 mg Q12HR KAY Administration Finasteride 5 mg 08/15/24 09:00 08/16/24 09:01 Finasteride 5 Mg Tablet PO 5 mg QAM KAY Administration Fluoxetine HCl 10 mg 08/15/24 09:00 08/16/24 09:02 Fluoxetine Hcl 10 Mg Capsule PO 10 mg QAM KAY Administration Gabapentin 100 mg 08/15/24 09:00 08/16/24 18:03 Gabapentin 100 Mg Capsule PO 100 mg BID KAY Administration Hydromorphone HCl 0.5 mg 08/14/24 07:33 Hydromorphone Hcl Inj (*Crx) 1 Mg/Ml Syr IV PUSH Q4H PRN Pain Rated 7-10 Methocarbamol 500 mg 08/14/24 17:00 08/16/24 20:24 Methocarbamol 500 Mg Tablet PO 500 mg QID KAY Administration Naloxone HCl 0.1 mg 08/15/24 13:59 Naloxone Hcl 0.4 Mg/Ml Vial IV PUSH Q2M PRN Opiate Reversal Ondansetron HCl 4 mg 08/15/24 13:59 Ondansetron Inj 4 Mg/2 Ml Vial IV PUSH Q4H PRN Nausea And Vomiting Oxycodone HCl 5 mg 08/14/24 14:26 08/15/24 22:55 Oxycodone Hcl (*Crx) 5 Mg Tab Ir PO 5 mg Q4H PRN Administration Pain Rated 4-6 Oxycodone HCl 10 mg 08/14/24 14:26 Oxycodone Hcl (*Crx) 5 Mg Tab Ir PO Q4H PRN Pain Rated 7-10 Oxycodone/Acetaminophen 1 tablet 08/15/24 13:59 Oxycodone/Acetaminophen (*Crx) 5-325 Mg Tablet PO Q4H PRN Pain Rated 4-6 Oxycodone/Acetaminophen 1 tab 08/15/24 13:59 Oxycodone/Acetaminophen (*Crx) 10-325 Mg Tablet PO Q6H PRN Pain Rated 7-10 Polyethylene Glycol 17 gm 08/16/24 09:00 08/16/24 09:00 Polyethylene Glycol 3350 17 Gm Powd.Pack PO 17 gm QAM KAY Administration Primidone 12.5 mg 08/15/24 21:00 08/16/24 20:24 Primidone 12.5 Mg Tablet PO 12.5 mg HS KAY Administration Senna/Docusate Sodium 2 tab 08/15/24 17:00 08/16/24 18:03 Senna/Docusate Sodium Tablet PO 2 tab BID KAY Administration Spironolactone 25 mg 08/15/24 09:00 08/16/24 09:01 Spironolactone 25 Mg Tablet PO 25 mg DAILY KAY Administration Tamsulosin HCl 0.4 mg 08/15/24 09:00 08/16/24 09:01 Tamsulosin Hcl 0.4 Mg Capsule BY MOUTH 0.4 mg QAM KAY Administration Tramadol HCl 50 mg 08/15/24 13:59 Tramadol Hcl (*Crx) 50 Mg Tablet PO Q4H PRN Pain Rated 1-3 Radiology Results: ITS Impressions Hip/Pelvis X-Ray 08/14/24 06:25 Impression: Acute, essentially nondisplaced subcapital fracture of the proximal right femoral neck. Labs Labs: Laboratory Results - last 24 hr 08/16/24 06:08 Sodium 136 L Potassium 4.2 Chloride 107 Carbon Dioxide 22 Anion Gap 7 BUN 19 Creatinine 0.87 Estim Creat Clear Calc 61 Estimated GFR > 60 Glucose 83 Calcium 7.9 L Quality VTE Prophylaxis VTE prophylaxis: mechanical ordered
[2024-08-17] MEDS: TAMSULOSIN HCL 0.4 MG CAPSULE BY MOUTH (09:07)
[2024-08-17] MEDS: methocarbamoL 500 MG TABLET PO ×4 (09:07→20:25)
[2024-08-17] MEDS: FLUoxetine HCL 10 MG CAPSULE PO (09:07)
[2024-08-17] MEDS: GABAPENTIN 100 MG CAPSULE PO ×2 (09:07→16:46)
[2024-08-17] MEDS: SENNA/DOCUSATE SODIUM TABLET 2 TAB PO (09:07)
[2024-08-17] MEDS: FAMOTIDINE 20 MG TABLET PO ×2 (09:07→20:25)
[2024-08-17] MEDS: SPIRONOLACTONE 25 MG TABLET PO (09:08)
[2024-08-17] MEDS: ENOXAPARIN 30 MG/0.3 ML SYRINGE SUB-Q ×2 (09:08→20:25)
[2024-08-17] MEDS: FINASTERIDE 5 MG TABLET PO (09:08)
[2024-08-17] MEDS: polyethylene glycoL 3350 17 GM POWD.PACK PO (09:13)
[2024-08-17 09:33] LABS: Anion Gap 7 mmol/L (4-12); Blood Urea Nitrogen 20 mg/dL (9-20); Calcium 8.1 mg/dL (8.4-10.2); Carbon Dioxide 21 mmol/L (22-30); Chloride 108 mmol/L (98-107); Estimated CRCL calculation 55 ml/min; Estimated Glomerular Filt Rate > 60; Glucose 89 mg/dL (65-110); Potassium 3.9 mmol/L (3.4-5.0); Sodium 136 mmol/L (137-145)
--- NOTE | 2024-08-17 10:19 | PCNFU ---
Nutrition Follow-Up Complete: Unintentional weight loss related to chronic dementia as evidenced by 6% weight loss/3 months Adequate PO intake after diet is advanced - Progressing. Refused breakfast this morning but eating 50-100% previously Goal: Pt current nutrition is Regular diet. Nutrition recommendation: Oral nutrition supplement: Add Ensure Enlive BID for additional 350 kcal and 20 g protein each Last recorded weight is 73.7 kg. Bowel Motility: +1 BM 08/16 Labs Reviewed: Hgb 11.9, Hct 37, Na 136 Meds Noted: Aricept, spironolactone, miralax, zofran Skin: Surgical to hip Additional Notes: Progressing with intakes although he refused breakfast this morning. Will add supplement to encourage intakes Monitoring diet orders, intakes, weights, labs, plan of care Follow up in 5 days
[2024-08-17 11:07] LABS: Basophils Absolute Auto 0.1 K/mm3 (0.0-0.1); Basophils Percent Auto 0.8 % (0.2-1.2); Eosinophils Absolute Auto 0.9 K/mm3 (0-0.3); Eosinophils Percent Auto 10.4 % (0-4.4); Hematocrit 39.5 % (42.0-52.0); Hemoglobin 13.2 g/dL (14.0-18.0); Immature Granulocyte Absolute 0.03 K/mm3 (0.00-0.031); Immature Granulocyte Percent A 0.3 % (0-0.5); Immature Platelet Fraction Pct 3.6 % (0.9-11.2); Lymphocytes Absolute Auto 1.37 K/mm3 (0.9-3.2); Lymphocytes Percent Auto 15.1 % (18.3-44.2); Mean Corpuscular HGB Conc 33.4 g/dl (32-36); Mean Corpuscular Hemoglobin 30.1 pg (26-34); Mean Platelet Volume 10.5 fl (7.4-10.4); Monocytes Absolute Auto 0.6 K/mm3 (0.1-0.6); Monocytes Percent Auto 6.3 % (2.6-8.5); Neutrophils Absolute Auto 6.1 K/mm3 (1.3-6.7); Neutrophils Percent Auto 67.1 % (45.5-73.1); Platelet Count Result 126 k/mm3 (150-375); Red Blood Count 4.39 M/mm3 (4.6-6.20); Red Cell Distribution Width 13.1 % (11.5-14.5); White Blood Count 9.1 K/mm3 (4.5-10.0)
--- NOTE | 2024-08-17 12:51 | P.PNOP_ITS ---
Progress Note: A&P Assessment and Plan (1) Closed right hip fracture: Qualifiers: Encounter type: initial encounter Qualified Code(s): S72.001A - Fracture of unspecified part of neck of right femur, initial encounter for closed fracture Code(s): S72.001A - Fracture of unspecified part of neck of right femur, initial encounter for closed fracture Status: Acute Assessment and Plan: Postop day 2: Percutaneous pinning right hip femoral neck fracture with 3 cannulated screws Patient tolerated procedure. Patient is confused. Not oriented to time or place. Making progress with therapy. Partial weight bearing with a walker. Okay for discharge when medically cleared. Ortho instructions: * D/C to SNF/rehab * Follow up in office in 6 weeks with xray if able. Please call [facility] for appointment details. * Wound Care: Remove Mepilex dressing at 7 days post op. Remove steristrips at 14 days post op. May shower. No soaking. * PT: Partial weight bearing with a walker. * DVT prophylaxis: continue Lovenox for 30 days total * Pain medication:Tylenol. Avoid Narcotics due to confusion. Subjective Subjective Date/Time Seen: 08/17/24 12:51 Interval history: Patient resting comfortably. Patient is confused. Review of Systems Review of Systems: All systems reviewed & are unremarkable except as noted in HPI and below Exam Narrative: Pleasant thin, elderly 83 y/o male. Confused to time and place. Dressing dry and intact without drainage. No drainage, erythema. Minimal ecchymosis. No warmth. No rash or lesions. Mild swelling. No calf or thigh tenderness. No distal edema. Pain with motion. Distal light touch sensation intact. Wiggles toes. Objective Data Vital Signs Vital Signs: Vital Signs - 24 hr 08/16/24 15:44 08/16/24 20:00 08/16/24 20:25 Temperature 98.8 F 98.3 F Pulse Rate 54 L 65 Respiratory Rate 16 20 Blood Pressure 124/77 160/68 H Pulse Oximetry 98 96 Oxygen Delivery Room Air 08/17/24 00:25 08/17/24 04:30 08/17/24 09:07 Temperature 98.1 F 98 F Pulse Rate 59 L 70 51 L Respiratory Rate 20 16 Blood Pressure 159/82 H 160/84 H Pulse Oximetry 94 93 Oxygen Delivery 08/17/24 09:52 Temperature Pulse Rate Respiratory Rate Blood Pressure Pulse Oximetry 94 Oxygen Delivery Room Air Intake/Output Intake/Output: Intake & Output 08/14/24 08/15/24 08/16/24 08/17/24 23:59 23:59 23:59 23:59 Intake Total 1991.7 875 970 650 Output Total 800 1675 900 Balance 1191.7 -800 70 650 Meds/Results Medications: Active Medications Generic Name Dose Route Start Last Admin Trade Name Freq PRN Reason Stop Dose Admin Acetaminophen 650 mg 08/15/24 18:00 08/17/24 12:26 Acetaminophen 325 Mg Tablet PO 650 mg Q6HR KAY Administration Atenolol 25 mg 08/15/24 09:00 08/17/24 09:07 Atenolol 25 Mg Tablet PO Not Given DAILY KAY Calcium Carbonate 500 mg 08/18/24 08:00 Calcium/Vitamin D 500 Mg/5 Mcg (200 I.U.) Tablet PO DAILY@0800 KAY Donepezil HCl 5 mg 08/15/24 21:00 08/16/24 20:24 Donepezil Hcl 5 Mg Tablet PO 5 mg HS KAY Administration Enoxaparin Sodium 30 mg 08/15/24 21:00 08/17/24 09:08 Enoxaparin 30 Mg/0.3 Ml Syringe SUB-Q 30 mg Q12HR KAY Administration Famotidine 20 mg 08/15/24 21:00 08/17/24 09:07 Famotidine 20 Mg Tablet PO 20 mg Q12HR KAY Administration Finasteride 5 mg 08/15/24 09:00 08/17/24 09:08 Finasteride 5 Mg Tablet PO 5 mg QAM KAY Administration Fluoxetine HCl 10 mg 08/15/24 09:00 08/17/24 09:07 Fluoxetine Hcl 10 Mg Capsule PO 10 mg QAM KAY Administration Gabapentin 100 mg 08/15/24 09:00 08/17/24 09:07 Gabapentin 100 Mg Capsule PO 100 mg BID KAY Administration Hydromorphone HCl 0.5 mg 08/14/24 07:33 Hydromorphone Hcl Inj (*Crx) 1 Mg/Ml Syr IV PUSH Q4H PRN Pain Rated 7-10 Methocarbamol 500 mg 08/14/24 17:00 08/17/24 12:26 Methocarbamol 500 Mg Tablet PO 500 mg QID KAY Administration Naloxone HCl 0.1 mg 08/15/24 13:59 Naloxone Hcl 0.4 Mg/Ml Vial IV PUSH Q2M PRN Opiate Reversal Ondansetron HCl 4 mg 08/15/24 13:59 Ondansetron Inj 4 Mg/2 Ml Vial IV PUSH Q4H PRN Nausea And Vomiting Oxycodone HCl 5 mg 08/14/24 14:26 08/15/24 22:55 Oxycodone Hcl (*Crx) 5 Mg Tab Ir PO 5 mg Q4H PRN Administration Pain Rated 4-6 Oxycodone HCl 10 mg 08/14/24 14:26 Oxycodone Hcl (*Crx) 5 Mg Tab Ir PO Q4H PRN Pain Rated 7-10 Oxycodone/Acetaminophen 1 tablet 08/15/24 13:59 Oxycodone/Acetaminophen (*Crx) 5-325 Mg Tablet PO Q4H PRN Pain Rated 4-6 Oxycodone/Acetaminophen 1 tab 08/15/24 13:59 Oxycodone/Acetaminophen (*Crx) 10-325 Mg Tablet PO Q6H PRN Pain Rated 7-10 Polyethylene Glycol 17 gm 08/16/24 09:00 08/17/24 09:13 Polyethylene Glycol 3350 17 Gm Powd.Pack PO 17 gm QAM KAY Administration Primidone 12.5 mg 08/15/24 21:00 08/16/24 20:24 Primidone 12.5 Mg Tablet PO 12.5 mg HS KAY Administration Senna/Docusate Sodium 2 tab 08/15/24 17:00 08/17/24 09:07 Senna/Docusate Sodium Tablet PO 2 tab BID KAY Administration Spironolactone 25 mg 08/15/24 09:00 08/17/24 09:08 Spironolactone 25 Mg Tablet PO 25 mg DAILY KAY Administration Tamsulosin HCl 0.4 mg 08/15/24 09:00 08/17/24 09:07 Tamsulosin Hcl 0.4 Mg Capsule BY MOUTH 0.4 mg QAM KAY Administration Tramadol HCl 50 mg 08/15/24 13:59 Tramadol Hcl (*Crx) 50 Mg Tablet PO Q4H PRN Pain Rated 1-3 Radiology Results: ITS Impressions Hip/Pelvis X-Ray 03/11/25 06:25 Impression: Acute, essentially nondisplaced subcapital fracture of the proximal right femoral neck. Labs Labs: Laboratory Results - last 24 hr 08/17/24 08/17/24 08:56 09:54 WBC 9.1 RBC 4.39 L Hgb 13.2 L Hct 39.5 L MCV 90.0 MCH 30.1 MCHC 33.4 RDW 13.1 Plt Count 126 L MPV 10.5 H Immature Gran % (Auto) 0.3 Neut % (Auto) 67.1 Lymph % (Auto) 15.1 L [place] % (Auto) 6.3 Eos % (Auto) 10.4 H Baso % (Auto) 0.8 Lymph # (Auto) 1.37 [place] # (Auto) 0.6 Eos # (Auto) 0.9 H Baso # (Auto) 0.1 Abs Immat Gran (auto) 0.03 Absolute Neuts (auto) 6.1 Absolute Nucleated RBC 0.000 Nucleated RBC % 0.0 % Immature Plt Fraction 3.6 Sodium 136 L Potassium 3.9 Chloride 108 H Carbon Dioxide 21 L Anion Gap 7 BUN 20 Creatinine 0.96 Estim Creat Clear Calc 55 Estimated GFR > 60 Glucose 89 Calcium 8.1 L
--- NOTE | 2024-08-17 13:51 | P.PNIM_ITS ---
Progress Note: A&P Assessment and Plan (1) Closed right hip fracture: Qualifiers: Encounter type: initial encounter Qualified Code(s): S72.001A - Fracture of unspecified part of neck of right femur, initial encounter for closed fracture Code(s): S72.001A - Fracture of unspecified part of neck of right femur, initial encounter for closed fracture Status: Acute Assessment and Plan: - POD 3 - Hip/pelvis x-ray :Acute, essentially nondisplaced subcapital fracture of the proximal right femoral neck - Post op care per ortho - Cefazolin X3 bags - DVT Prophylaxis Lovenox 30mg q12Hr - PT/OT- will appreciate recommendations (2) Ground-level fall: Code(s): W18.30XA - Fall on same level, unspecified, initial encounter Status: Acute Assessment and Plan: - Patient states that he was in bed and slid out of bed onto his right side. Denies any other pain anywhere other than the right hip. - Hip/pelvis x-ray :Acute, essentially nondisplaced subcapital fracture of the proximal right femoral neck (3) UTI (urinary tract infection): Code(s): N39.0 - Urinary tract infection, site not specified Status: Acute Assessment and Plan: - UA: 2+ Leuk Esterase, 6-10 RBC, 6-10 WBC, 4+ Bacteria - UC obtained on 08/14: Greater than 100,000 CFU/mL of Non-uropathogenic Gram positive organism. May represent colonizers from external and internal genitalia. No further testing(including susceptibility) will be performed. - Currently asymptomatic, no indication for continued Abx coverage - Gentle Hydration (4) Essential hypertension: Code(s): I10 - Essential (primary) hypertension Status: Chronic Assessment and Plan: 08/17: 160/84 Continue Irbesartan, Atenolol (5) Left ventricular diastolic dysfunction, NYHA class 1: Code(s): I51.9 - Heart disease, unspecified Status: Acute Assessment and Plan: Gentle IV hydration due to UTI and NPO for surgery (6) Protein-calorie malnutrition, mild: Code(s): E44.1 - Mild protein-calorie malnutrition Status: Acute (7) Dementia: Code(s): F03.90 - Unspecified dementia, unspecified severity, without behavioral disturbance, psychotic disturbance, mood disturbance, and anxiety Status: Acute Assessment and Plan: Continue Aricept (8) Seizures: Code(s): R56.9 - Unspecified convulsions Status: Acute Assessment and Plan: Continue mysoline (9) CHF (congestive heart failure): Qualifiers: Heart failure chronicity: unspecified Heart failure type: unspecified Qualified Code(s): I50.9 - Heart failure, unspecified Code(s): I50.9 - Heart failure, unspecified Status: Acute Assessment and Plan: Continue spironolactone Subjective Date/time seen: 08/17/24 13:51 Interval history: 83-year-old male with history of basal cell carcinoma, CHF, hypertension and neuropathy presents the hospital with right hip pain after fall. Patient lives at a memory care facility. Patient states that he was in bed and slid out of bed falling onto his right side. 08/17/2024 POD 3 of Percutaneous pinning right hip femoral neck fracture with 3 cannulated screws. Patient continues to improve with pain levels. He denies any chest pain, shortness a breath, nausea/vomiting, abdominal pain. He still endorses some right-sided hip pain with focus on the surgical site area when ambulating or moving his right leg, but denies any pain at rest. PT/OT worked with him again today, plan to continue physical therapy after discharge. [facility] anticipate discharge tomorrow pending General surgery clearance. Review of Systems Review of Systems: 12 systems were reviewed and are negativ e except for as per HPI. Exam Narrative: General: Chronically ill, appears stated age. HEENT: normocephalic, atraumatic. Mucous membranes moist. EOMI, PERRLA, bilateral sclera anicteric, no conjunctival injection. Neck supple without JVD, lymphadenopathy, or bruit. Respiratory: clear to ascultation bilaterally. No rales/rhonic/wheezes. Cardiovascular: Regular rate and rhythm, normal S1-S2 upon ascultation. No murmurs, rubs, or clicks. PMI is nondisplaced, capillary refill less than 3 second. Abdomen: Soft, round, no pulsatile masses, nondistended and nontender. No rebound, no guarding. No CVA tenderness, no hepatosplenomegaly. Bowel sounds present to all four quadrants. No high pitch or tinkling sounds, resonant to percussion. Extremities: No cyanosis, clubbing, or edema present. Pulses are palpable 2/2. right lower extremity limited region motion due to acute pain right lower extremity edema Neuro: Alert and orientated x 4. PERRLA. Cranial nerves 2-12 intact without focal deficit. Skin: Warm, dry, and intact, without rash, erythema, or lesion. Psych: pleasant, cooperative, normal speech, normal affect, no hallucinations, no dysarthia Objective Data Vital Signs Vital Signs: Vital Signs - 24 hr 08/16/24 15:44 08/16/24 20:00 08/16/24 20:25 Temperature 98.8 F 98.3 F Pulse Rate 54 L 65 Respiratory Rate 16 20 Blood Pressure 124/77 160/68 H Pulse Oximetry 98 96 Oxygen Delivery Room Air 08/17/24 00:25 08/17/24 04:30 08/17/24 08:00 Temperature 98.1 F 98 F Pulse Rate 59 L 70 51 L Respiratory Rate 20 16 16 Blood Pressure 159/82 H 160/84 H Pulse Oximetry 94 93 94 Oxygen Delivery Room Air 08/17/24 09:07 08/17/24 09:52 Temperature Pulse Rate 51 L Respiratory Rate Blood Pressure Pulse Oximetry 94 Oxygen Delivery Room Air Intake/Output Intake/Output: Intake & Output 08/14/24 08/15/24 08/16/24 08/17/24 23:59 23:59 23:59 23:59 Intake Total 1991.7 875 970 650 Output Total 800 1675 900 Balance 1191.7 -800 70 650 Meds/Results Medications: Active Medications Generic Name Dose Route Start Last Admin Trade Name Freq PRN Reason Stop Dose Admin Acetaminophen 650 mg 08/15/24 18:00 08/17/24 12:26 Acetaminophen 325 Mg Tablet PO 650 mg Q6HR KAY Administration Atenolol 25 mg 08/15/24 09:00 08/17/24 09:07 Atenolol 25 Mg Tablet PO Not Given DAILY KAY Calcium Carbonate 500 mg 08/18/24 08:00 Calcium/Vitamin D 500 Mg/5 Mcg (200 I.U.) Tablet PO DAILY@0800 KAY Donepezil HCl 5 mg 08/15/24 21:00 08/16/24 20:24 Donepezil Hcl 5 Mg Tablet PO 5 mg HS KAY Administration Enoxaparin Sodium 30 mg 08/15/24 21:00 08/17/24 09:08 Enoxaparin 30 Mg/0.3 Ml Syringe SUB-Q 30 mg Q12HR KAY Administration Famotidine 20 mg 08/15/24 21:00 08/17/24 09:07 Famotidine 20 Mg Tablet PO 20 mg Q12HR KAY Administration Finasteride 5 mg 08/15/24 09:00 08/17/24 09:08 Finasteride 5 Mg Tablet PO 5 mg QAM KAY Administration Fluoxetine HCl 10 mg 08/15/24 09:00 08/17/24 09:07 Fluoxetine Hcl 10 Mg Capsule PO 10 mg QAM KAY Administration Gabapentin 100 mg 08/15/24 09:00 08/17/24 09:07 Gabapentin 100 Mg Capsule PO 100 mg BID KAY Administration Hydromorphone HCl 0.5 mg 08/14/24 07:33 Hydromorphone Hcl Inj (*Crx) 1 Mg/Ml Syr IV PUSH Q4H PRN Pain Rated 7-10 Methocarbamol 500 mg 08/14/24 17:00 08/17/24 12:26 Methocarbamol 500 Mg Tablet PO 500 mg QID KAY Administration Naloxone HCl 0.1 mg 08/15/24 13:59 Naloxone Hcl 0.4 Mg/Ml Vial IV PUSH Q2M PRN Opiate Reversal Ondansetron HCl 4 mg 08/15/24 13:59 Ondansetron Inj 4 Mg/2 Ml Vial IV PUSH Q4H PRN Nausea And Vomiting Oxycodone HCl 5 mg 08/14/24 14:26 08/15/24 22:55 Oxycodone Hcl (*Crx) 5 Mg Tab Ir PO 5 mg Q4H PRN Administration Pain Rated 4-6 Oxycodone HCl 10 mg 08/14/24 14:26 Oxycodone Hcl (*Crx) 5 Mg Tab Ir PO Q4H PRN Pain Rated 7-10 Oxycodone/Acetaminophen 1 tablet 08/15/24 13:59 Oxycodone/Acetaminophen (*Crx) 5-325 Mg Tablet PO Q4H PRN Pain Rated 4-6 Oxycodone/Acetaminophen 1 tab 08/15/24 13:59 Oxycodone/Acetaminophen (*Crx) 10-325 Mg Tablet PO Q6H PRN Pain Rated 7-10 Polyethylene Glycol 17 gm 08/16/24 09:00 08/17/24 09:13 Polyethylene Glycol 3350 17 Gm Powd.Pack PO 17 gm QAM KAY Administration Primidone 12.5 mg 08/15/24 21:00 08/16/24 20:24 Primidone 12.5 Mg Tablet PO 12.5 mg HS KAY Administration Senna/Docusate Sodium 2 tab 08/15/24 17:00 08/17/24 09:07 Senna/Docusate Sodium Tablet PO 2 tab BID KAY Administration Spironolactone 25 mg 08/15/24 09:00 08/17/24 09:08 Spironolactone 25 Mg Tablet PO 25 mg DAILY KAY Administration Tamsulosin HCl 0.4 mg 08/15/24 09:00 08/17/24 09:07 Tamsulosin Hcl 0.4 Mg Capsule BY MOUTH 0.4 mg QAM KAY Administration Tramadol HCl 50 mg 08/15/24 13:59 Tramadol Hcl (*Crx) 50 Mg Tablet PO Q4H PRN Pain Rated 1-3 Radiology Results: ITS Impressions Hip/Pelvis X-Ray 08/14/24 06:25 Impression: Acute, essentially nondisplaced subcapital fracture of the proximal right femoral neck. Labs Labs: Laboratory Results - last 24 hr 08/17/24 08/17/24 08:56 09:54 WBC 9.1 RBC 4.39 L Hgb 13.2 L Hct 39.5 L MCV 90.0 MCH 30.1 MCHC 33.4 RDW 13.1 Plt Count 126 L MPV 10.5 H Immature Gran % (Auto) 0.3 Neut % (Auto) 67.1 Lymph % (Auto) 15.1 L [place] % (Auto) 6.3 Eos % (Auto) 10.4 H Baso % (Auto) 0.8 Lymph # (Auto) 1.37 [place] # (Auto) 0.6 Eos # (Auto) 0.9 H Baso # (Auto) 0.1 Abs Immat Gran (auto) 0.03 Absolute Neuts (auto) 6.1 Absolute Nucleated RBC 0.000 Nucleated RBC % 0.0 % Immature Plt Fraction 3.6 Sodium 136 L Potassium 3.9 Chloride 108 H Carbon Dioxide 21 L Anion Gap 7 BUN 20 Creatinine 0.96 Estim Creat Clear Calc 55 Estimated GFR > 60 Glucose 89 Calcium 8.1 L Quality VTE Prophylaxis VTE prophylaxis: mechanical ordered
[2024-08-17] MEDS: IRBESARTAN 150 MG TABLET 300 MG PO (15:35)
[2024-08-17] MEDS: PRIMIDONE 12.5 MG TABLET PO (20:24)
[2024-08-17] MEDS: DONEPEZIL HCL 5 MG TABLET PO (20:25)
[2024-08-18] MEDS: ACETAMINOPHEN 325 MG TABLET 650 MG PO ×2 (00:50→14:07)
[2024-08-18 05:39] VITALS: BP 164/88; PULSE 50; RESP 16; TEMP 36.4; O2SAT 90
--- NOTE | 2024-08-18 09:34 | PM.DS ---
DS: Admitting Diagnosis Discharge Date 08/18/2024 Admitting Diagnosis Non displaced subcapsular fracture of the right proximal femoral neck DS: Discharge Diagnosis Discharge Diagnosis (1) Closed right hip fracture: Qualifiers: Encounter type: initial encounter Qualified Code(s): S72.001A - Fracture of unspecified part of neck of right femur, initial encounter for closed fracture Code(s): S72.001A - Fracture of unspecified part of neck of right femur, initial encounter for closed fracture Status: Acute (2) Ground-level fall: Code(s): W18.30XA - Fall on same level, unspecified, initial encounter Status: Acute (3) UTI (urinary tract infection): Code(s): N39.0 - Urinary tract infection, site not specified Status: Acute (4) Essential hypertension: Code(s): I10 - Essential (primary) hypertension Status: Chronic (5) Left ventricular diastolic dysfunction, NYHA class 1: Code(s): I51.9 - Heart disease, unspecified Status: Acute (6) Protein-calorie malnutrition, mild: Code(s): E44.1 - Mild protein-calorie malnutrition Status: Acute (7) Dementia: Code(s): F03.90 - Unspecified dementia, unspecified severity, without behavioral disturbance, psychotic disturbance, mood disturbance, and anxiety Status: Acute (8) Seizures: Code(s): R56.9 - Unspecified convulsions Status: Acute (9) CHF (congestive heart failure): Qualifiers: Heart failure chronicity: unspecified Heart failure type: unspecified Qualified Code(s): I50.9 - Heart failure, unspecified Code(s): I50.9 - Heart failure, unspecified Status: Acute DS: Summary Hospital Course Reason for hospitalization: Right hip pain Hospital Course: 83-year-old male with history of basal cell carcinoma, CHF, hypertension and neuropathy presents the hospital with right hip pain after fall. Patient lives at a memory care facility. Patient states that he was in bed and slid out of bed falling onto his right side. Patient complains of pain with movement and muscle spasms. He denies pain at rest. He denies nausea vomiting fever chills. UA is turbid with 2+ leukocyte esterase, negative for nitrates, 4+ bacteria. EKG shows sinus bradycardia at 55. Right hip x-ray shows Acute, essentially nondisplaced subcapital fracture of the proximal right femoral neck. Orthopedics consulted. Surgery involving Percutaneous pinning of the right hip femoral neck with 3 cannulated screws was performed with no complications. Patient then worked with PT/OT. Throughout the next couple days, patient endorsed subsiding of right-sided hip pain while at rest, some noted pain the right hip when ambulating and with movement of the right leg, with more focus on the surgical site area. Otherwise patient improved postop recovery. On 08/17, it was reported that the patient seemed more confused than previous days. Patient is from [facility], difficult to assess mentation status, but patient appears to be at baseline at time of discharge. Patient was cleared by surgery given orthopedic Discharge instructions, including following up with SNF/rehab, proper wound care instructions, DVT prophylaxis, PT instructions, and a pain medication regimen. Patient accepted at [facility] and will be discharged. Time Spent with Patient Time attestation: Total time spent providing and/or coordinating discharge services: Exam Narrative: General: Chronically ill, appears stated age. HEENT: normocephalic, atraumatic. Mucous membranes moist. EOMI, PERRLA, bilateral sclera anicteric, no conjunctival injection. Respiratory: clear to ascultation bilaterally. No rales/rhonic/wheezes. Cardiovascular: Regular rate and rhythm, normal S1-S2 upon ascultation. No murmurs, rubs, or clicks. PMI is nondisplaced, capillary refill less than 3 second. Abdomen: Soft, round, no pulsatile masses, nondistended and nontender. No rebound, no guarding. No CVA tenderness, no hepatosplenomegaly. Bowel sounds present to all four quadrants. No high pitch or tinkling sounds, resonant to percussion. Extremities: No cyanosis, clubbing, or edema present. Pulses are palpable 2/2. right lower extremity limited region motion due to acute pain right lower extremity edema Neuro: Alert and orientated x 1. PERRLA. Skin: Dressing dry and intact without drainage, erythema or warmth. Minimal ecchymosis. No rash or lesions. Psych: pleasant, cooperative, normal speech, normal affect, no hallucinations, no dysarthia DS: Data Data Completed and Pending Labs on day of discharge: Labs from last 24 hours 08/17/24 09:54 WBC 9.1 RBC 4.39 L Hgb 13.2 L Hct 39.5 L MCV 90.0 MCH 30.1 MCHC 33.4 RDW 13.1 Plt Count 126 L MPV 10.5 H Immature Gran % (Auto) 0.3 Neut % (Auto) 67.1 Lymph % (Auto) 15.1 L [place] % (Auto) 6.3 Eos % (Auto) 10.4 H Baso % (Auto) 0.8 Lymph # (Auto) 1.37 [place] # (Auto) 0.6 Eos # (Auto) 0.9 H Baso # (Auto) 0.1 Abs Immat Gran (auto) 0.03 Absolute Neuts (auto) 6.1 Absolute Nucleated RBC 0.000 Nucleated RBC % 0.0 % Immature Plt Fraction 3.6 Discharge Plan Discharge Attending physician on discharge: Kwadwo Guidry Consulting providers: Davie Jacinto Discharging Clinician: Kwadwo Guidry Anticipated Discharge Date/Time: 08/17/24 12:05 Patient Disposition: SNF Activity: as tolerated Diet: heart healthy Discharge Instructions: Take medications as prescribed Remain active, full weight-bearing status Continue with physical therapy and occupational therapy to improve strength and endurance and returned back to baseline strength Continue with fall precautions, remove rugs within the home, use hand rails when climbing stairs and use assistive devices when needed to ambulate Follow-up with primary care provider within 1 weeks Thank you for [facility] for your healthcare needs Ortho instructions: D/C to SNF/rehab Follow up in office in 6 weeks with xray if able. Please call [facility] for appointment details. Wound Care: Remove Mepilex dressing at 7 days post op. Remove steristrips at 14 days post op. May shower. No soaking. PT: Partial weight bearing with a walker. DVT prophylaxis: continue Lovenox for 30 days total Pain medication:Tylenol. Avoid Narcotics due to confusion. Patient Language: Greek Stand Alone Forms: General Discharge Information Follow-up/Referrals: Sakina Morris PA [Physician [employer]erryboat Helper] - Discharge Medications: Continued dietary supplement Capsule See Rx Instructions .ROUTE .COMPLEX Patient Comments: CannaXL Hemp extract Rx Instructions: cap orally ;CannaXL Hemp extract zinc 50 mg tablet 50 mg PO DAILY cholecalciferol (vitamin D3) 50 mcg (2,000 unit) capsule 50 mcg PO DAILY polymyxin B sulf-trimethoprim 10,000 unit- 1 mg/mL drops 1 drp RIGHT EYE Q3H 7 Days Qty: 10 0RF Rx Instructions: while awake; do not exceed 6 doses in 24 hours polymyxin B sulf-trimethoprim 10,000 unit- 1 mg/mL drops 2 drp RIGHT EYE QID 5 Days Qty: 10 0RF Rx Instructions: while awake; do not exceed 6 doses in 24 hours gabapentin 100 mg capsule 100 mg PO BID Qty: 60 0RF fluoxetine 10 mg capsule 10 mg PO QAM irbesartan 300 mg tablet 300 mg PO DAILY naproxen sodium 220 mg tablet 220 mg PO DAILY ascorbic acid (vitamin C) [Vitamin C] 500 mg tablet 500 mg PO DAILY primidone 50 mg tablet 12.5 mg PO HS donepezil 5 mg tablet 5 mg PO HS polyethylene glycol 3350 17 gram/dose powder 17 g PO .Q daily PRN (Reason: constipation) finasteride [Proscar] 5 mg tablet 5 mg PO QAM Qty: 90 1RF atenolol 25 mg tablet 25 mg PO DAILY Qty: 90 1RF tamsulosin 0.4 mg capsule See Rx Instructions .ROUTE .COMPLEX Qty: 90 1RF Dose Instruction: TAKE ONE CAPSULE BY MOUTH ONCE DAILY Patient Comments: Pt. states he takes at night Rx Instructions: TAKE ONE CAPSULE BY MOUTH ONCE DAILY Date of admission: 08/14/24 07:33 Primary Care Provider: UNKNOWN,DOCTOR Admitting Provider: Adryan Ng Attending physician on admission: Kwadwo Guidry Condition: Stable Quality VTE Prophylaxis VTE prophylaxis: mechanical ordered
[2024-08-18] MEDS: TAMSULOSIN HCL 0.4 MG CAPSULE BY MOUTH (10:07)
[2024-08-18] MEDS: SPIRONOLACTONE 25 MG TABLET PO (10:07)
[2024-08-18] MEDS: IRBESARTAN 150 MG TABLET 300 MG PO (10:07)
[2024-08-18] MEDS: CALCIUM/VITAMIN D 500 MG/5 MCG (200 I.U.) TABLET PO (10:07)
[2024-08-18] MEDS: polyethylene glycoL 3350 17 GM POWD.PACK PO (10:08)
[2024-08-18] MEDS: methocarbamoL 500 MG TABLET PO ×3 (10:08→16:55)
[2024-08-18] MEDS: FAMOTIDINE 20 MG TABLET PO (10:09)
[2024-08-18] MEDS: FINASTERIDE 5 MG TABLET PO (10:09)
[2024-08-18] MEDS: GABAPENTIN 100 MG CAPSULE PO ×2 (10:09→16:55)
[2024-08-18] MEDS: SENNA/DOCUSATE SODIUM TABLET 2 TAB PO ×2 (10:09→16:55)
[2024-08-18 10:11] VITALS: PULSE 53
[2024-08-18] MEDS: FLUoxetine HCL 10 MG CAPSULE PO (10:22)
[2024-08-18] MEDS: ENOXAPARIN 30 MG/0.3 ML SYRINGE SUB-Q (10:23)
[2024-08-18 14:00] VITALS: BP 105/55; PULSE 63; RESP 20; TEMP 36.4; O2SAT 97
[2024-08-18 14:05] LABS: SARS-CoV-2 RNA PCR Negative (Negative)
[2024-08-18] MEDS: traMADol HCL (*CRX) 50 MG TABLET PO (16:55)
== END 2024-08-18 19:15 | DRG 481 ==
LOC: ANHED 06:45 → ANH3MEDSUR 08:34
PROVIDERS: Emergency Medicine; Nurse Practitioner Gerontology; Orthopaedic Surgery; Physician Assistant Surgical; Admitting Provider Family Medicine; Emergency Provider Emergency Medicine; Visit Provider Physician Assistant
PROC: 0QS634Z Reposition Right Upper Femur with Internal Fixation Device, Percutaneous Approach (ICD-10-PCS; principal; 2024-08-15 12:00)
DX: S72.011A Unspecified intracapsular fracture of right femur, initial encounter for closed fracture (principal); E44.1 Mild protein-calorie malnutrition; N39.0 Urinary tract infection, site not specified; I11.0 Hypertensive heart disease with heart failure; I50.9 Heart failure, unspecified; E78.5 Hyperlipidemia, unspecified; R56.9 Unspecified convulsions; M54.9 Dorsalgia, unspecified; G89.29 Other chronic pain; G47.33 Obstructive sleep apnea (adult) (pediatric); G62.9 Polyneuropathy, unspecified; F03.90 Unspecified dementia, unspecified severity, without behavioral disturbance, psychotic disturbance, mood disturbance, and anxiety; W19.XXXA Unspecified fall, initial encounter; Z20.822 Contact with and (suspected) exposure to COVID-19; Z11.52 Encounter for screening for COVID-19; Z87.891 Personal history of nicotine dependence; Z68.22 Body mass index [BMI] 22.0-22.9, adult
CPT/HCPCS: 36415; 73502; 80048; 80053; 81001; 85025; 85055; 86850; 86900; 86901; 87086; 87635; 87637; 93005; 96374; 97110; 97161; 97165; 97530; 97535; 99199; 99285; A9270; C1713; C1769; J0690; J1650; J2003; J2371; J2704; J3010; J7030; J7120

== ENCOUNTER 2024-09-28 15:15 | Inpatient (IN) | payer MEDICARE, SELFPAY ==
[2024-09-28] VITALS (10 sets, daily range): BP systolic 115–147; BP diastolic 65–78; PULSE 50–54; RESP 14–16; TEMP 36.2–36.6; O2SAT 94–100; BMI 23.1
--- NOTE | ~2024-09-28 | XR_ITS ---
CHEST RADIOGRAPH, PA AND LATERAL CLINICAL HISTORY: cardiac history . COMPARISON: 08/08/2024 TECHNIQUE: PA and lateral views of the chest. FINDINGS The cardiomediastinal silhouette is unremarkable. The lungs are clear. IMPRESSION: No focal infiltrate or effusion. Reviewed, dictated and finalized at location A.
--- NOTE | ~2024-09-28 | CT_ITS ---
History: Fall PROCEDURE: CT cervical spine without intravenous contrast. COMPARISON: 08/08/2024 TECHNIQUE: Multiple contiguous axial images of the cervical spine were performed without the administration of i ntravenous contrast. DLP: 229 mGy-cm FINDINGS: Significant degenerative disease is identified within the cervical spine with osteophyte formation, d isc space narrowing and endplate changes. Facet arthropathy and moderate kyphosis are also noted. No acute fractures are present. The bilateral lung apices are unremarkable. No soft tissue abnormality is present. The airway is patent. Impression: Significant degenerative disease, without acute fracture, as detailed above. Reviewed, dictated and finalized at location A. Impression: Significant degenerative disease, without acute fracture, as detailed above.
--- NOTE | ~2024-09-28 | US_ITS ---
CAROTID ULTRASOUND Ordering provider: Derrek Delong MD History: . syncope . Comparison: None. Technique: Grayscale and color Doppler ultrasound examination of the carotid and vertebral artery sys tems bilaterally. Maximum peak systolic velocity (PSV) / end diastolic velocity (EDV) measurements we re obtained. FINDINGS: RIGHT: --Proximal COMMON CAROTID ARTERY: PSV is 128.9 cm/s. EDV is 23 cm/s. --Mid COMMON CAROTID ARTERY: PSV is 125.3 cm/s. EDV is 21.2 cm/s. --Distal COMMON CAROTID ARTERY: PSV is 103.3 cm/s. EDV is 17.5 cm/s. --EXTERNAL CAROTID ARTERY: PSV is 72 cm/s. --INTERNAL CAROTID ARTERY PROXIMAL: PSV is 64.4 cm/s. EDV is 18.2 cm/s. --INTERNAL CAROTID ARTERY MID: PSV is 76.4 cm/s. EDV is 20.4 cm/s. --INTERNAL CAROTID ARTERY DISTAL: PSV is 78.6 cm/s. EDV is 21.5 cm/s. --VERTEBRAL ARTERY: PSV is 80.8 cm/s. ED 16 cm/s normal waveform. --SYSTOLIC ICA/CCA: 0.8 --ATHEROMATOUS DISEASE: Mild. LEFT: --Proximal COMMON CAROTID ARTERY: PSV is 81.9 cm/s. EDV is 11.6 cm/s. --Mid COMMON CAROTID ARTERY: PSV is 116.2 cm/s. EDV is 15.7 cm/s. --Distal COMMON CAROTID ARTERY: PSV is 94.2 cm/s. EDV is 15.7 cm/s. --EXTERNAL CAROTID ARTERY: PSV is 103.3 cm/s. --INTERNAL CAROTID ARTERY PROXIMAL: PSV is 77.6 cm/s. EDV is 19.3 cm/s. --INTERNAL CAROTID ARTERY MID: PSV is 82 cm/s. EDV is 23.7 cm/s. --INTERNAL CAROTID ARTERY DISTAL: PSV is 53.4 cm/s. EDV is 17.1 cm/s. --VERTEBRAL ARTERY: PSV is 46.8 cm/s. ED 9.4 cm/s normal waveform. --SYSTOLIC ICA/CCA: 0.8 --ATHEROMATOUS DISEASE: Mild. IMPRESSION: 1. 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 2. Antegrade flow demonstrated within both vertebral arteries. Reviewed, dictated and finalized at location A.
--- NOTE | ~2024-09-28 | US_ITS ---
BILATERAL LOWER EXTREMITY VENOUS ULTRASOUND Ordering provider: Candi Gracia DO History: . Worsening lower extremity edema . Comparison: None. FINDINGS: RIGHT LOWER EXTREMITY VEINS: --COMMON FEMORAL: Patent and free of thrombus. Normal compressibility, phasic flow and augmentation. --PROXIMAL SUPERFICIAL FEMORAL: Patent and free of thrombus. Normal compressibility, phasic flow and augmentation. --DISTAL SUPERFICIAL FEMORAL: Patent and free of thrombus. Normal compressibility, phasic flow and au gmentation. --POPLITEAL: Patent and free of thrombus. Normal compressibility, phasic flow and augmentation. --POSTERIOR TIBIAL: Patent and free of thrombus. Normal compressibility, phasic flow and augmentation . LEFT LOWER EXTREMITY VEINS: --COMMON FEMORAL: Patent and free of thrombus. Normal compressibility, phasic flow and augmentation. --PROXIMAL SUPERFICIAL FEMORAL: Patent and free of thrombus. Normal compressibility, phasic flow and augmentation. --DISTAL SUPERFICIAL FEMORAL: Patent and free of thrombus. Normal compressibility, phasic flow and au gmentation. --POPLITEAL: Patent and free of thrombus. Normal compressibility, phasic flow and augmentation. --POSTERIOR TIBIAL: Patent and free of thrombus. Normal compressibility, phasic flow and augmentation . IMPRESSION: Negative bilateral lower extremity venous US. No deep vein thrombosis. Reviewed, dictated and finalized at location A.
--- NOTE | ~2024-09-28 | CT_ITS ---
History: Fall PROCEDURE: CT head without contrast. COMPARISON: 08/08/2024 TECHNIQUE: Axial imaging of the head performed from the skull base to the vertex without IV contrast. Sagittal a nd coronal reformations obtained. DLP: 681 mGy-cm FINDINGS: The ventricles are enlarged. The dilatation of the ventricles is proportional to the degree of sulcal prominence, not uncommon in the senescent brain. Decreased attenuation is identified within the periventricular white matter, likely secondary to micr ovascular ischemic disease, in a patient of this age. There is no mass, mass effect or midline shift. There is no abnormal extra-axial fluid collection or intracranial hemorrhage. Visualized paranasal sinuses are clear. The mastoid air cells are well aerated. No acute displaced fractures within the overlying cranium. Impression: No acute intracranial hemorrhage or suspicious mass effect. Reviewed, dictated and finalized at location A. Impression: No acute intracranial hemorrhage or suspicious mass effect.
--- OUTSIDE RECORDS SUMMARY | 2024-09-28 15:20 | XMS_ITS | Encounter Summary ---
Author Organization [facility] Address 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
--- OUTSIDE RECORDS SUMMARY | 2024-09-28 15:20 | XMS_ITS | Encounter Summary ---
Author Organization [facility] Address [address] 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
--- OUTSIDE RECORDS SUMMARY | 2024-09-28 15:20 | XMS_ITS | Clinical Summary ---
Author Organization 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
--- OUTSIDE RECORDS SUMMARY | 2024-09-28 15:20 | XMS_ITS | Clinical Summary ---
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 Immunizations Immunization Administration Dates Next Due Fluzone High Dose [...] Td Vaccines ( 1 - Tdap) 1959 Pneumococcal Vaccine: 50+ Ye ars (1 of 1 - PCV) 1992 02/05/2012 Zoster Vaccines (1 of 2) 1992 Annual Medicare Wellness Visit 08/22/2007 RSV Immunization or 60+ Years (1 - 1-dose 75+ series) 2017 COVID-19 Vaccine ( - 2023-2 5 season) 2024 PHQ-2 (Physician [place]) 06/06/2024 Meningococcal B Vaccine Aged Out No l onger eligible based on patient's age to complete this topic Meningococcal Vaccine Aged Out No tyler soumya eligible based on patient's age to complete this topic RSV Immunizations Under 20 Months Aged Out No longer eligible based on patient's age to complete this topic Insurance [facility]
--- OUTSIDE RECORDS SUMMARY | 2024-09-28 15:20 | XMS_ITS | Clinical Summary ---
Author Organization [facility] Address [address] [place] [phone] Phone Care Team Providers Care Powertrain Engineer Name Role Phone Eric French MD Primary Care Provider [phone] Allergies Active Allergy Reactions Criticality Noted Date Comments Amlodipine Shortness of breath High 05/31/2019 Hydrochlorothiazide Hives High 05/31/2019 Medications atenolol (TENORMIN) 25 MG tablet 11/14/2021 Active [...] 05/31/2019 Immunizations Immunization Administration Dates Next Due Influenza Split High [...] at Not on file Legal Sex Male 9:46 AM MDT Gender Identity Not on file Sexual Orientation Not on file Last Filed Vital Signs Vital Sign Reading Time Taken Comments Blood Pressure 162/80 05/05/2022 2:40 PM FIREWORKS MAKER Pulse 60 05/05/2022 2:40 PM FIREWORKS MAKER Temperature 35.3 C (95.5 F) 05/05/2022 2:40 PM FIREWORKS MAKER Respiratory Rate - - Oxygen Saturation - - Inhaled Oxygen Concentration - - Weight 89.4 kg (197 lb) 05/05/2022 2:40 PM FIREWORKS MAKER Height 182.9 cm (6') 05/05/2022 2:40 PM FIREWORKS MAKER Body Mass Index 26.72 05/05/2022 2:40 PM FIREWORKS MAKER Plan of Treatment Health Maintenance Due Date Last Done Comments Pneumococcal PPSV23/PCV13 65 + Years / Low and Medium Risk (1 of 4 - PCV) 1992 Influenza Vaccine (Season Ended) 2025 Insurance Care Teams Powertrain Engineer Relationship Specialty Start Date End Date Eric French MD [address] [place] [id number] PCP - General Internal Medicine 05/05/22
--- OUTSIDE RECORDS SUMMARY | 2024-09-28 15:20 | XMS_ITS | Clinical Summary ---
Author Organization [facility] Address [address] [place] [address] Care Team Providers Care Wine Sales Representative Name Role Phone Darren Butler DO Primary Care Provider Source Comments [facility],non-owned Affiliates and Associated Physician Practices is amultiple site organization consisting of ambulatory clinics and hospital sitesin [place], [place]. This disclosure is being madepursuant to the Care Everywhere program and may not contain all information available regarding this patient. Last updated 18.[facility] Allergies Active Allergy Reactions Criticality Noted Date Comments Amlodipine Base Itching 07/04/2024 Hydrochlorothiazide Itching 07/04/2024 Valsartan Itching 07/04/2024 Medications * Be aware that medications may not be up to date on this document. Alwaysverify current medications with the patient. acetaminophen (Tylenol) 500 MG tablet Take 2 (two) tablets by mouth every 8 hours Maximum allowable Acetaminophen amount = 4 Grams (4000 mg) / 24 hours. 5 Active gabapentin (Neurontin) 100 MG capsule Take 1 (one) capsule by mouth 2 times daily 5 Active polyethylene glycol 3350 (Miralax) 17 g packet Take 17 (seventeen) g by mouth once daily 5 Active finasteride (Proscar) 5 MG tablet Take 1 (one) tablet by mouth once daily 5 Active tamsulosin (Flomax) 0.4 MG capsule Take 1 (one) capsule by mouth at bedtime At the same time every day after a meal. 5 Active acetaminophen (Tylenol) 500 MG tablet Take 2 (two) tablets by mouth every 6 hours as needed Maximum allowable Acetaminophen amount = 4 Grams (4000 mg) / 24 hours. 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 Overview (07/07/2024): R side 7mm Fall 07/04/2024 Acute on chronic intracranial subdural hematoma 07/04/2024 Resolved Problems Problem Noted Date Diagnosed Date Resolved Date Subdural hematoma 07/04/2024 07/07/2024 Encounters Date Type Department Care Team Description 07/04/2024 5:49 AM [facility]UD[facility]FFAIRS - 07/10/2024 7:16 PM [facility]UD[facility]FFAIRS Hospital Encounter [facility] 8[facility] ACUTE [address] [place] [address] Miguel Bhagat MD Mason, MD Rolanda Zapata, MD Lori Borjas, Jarret Durbin MD Trauma Discharge Disposition: [facility] 07/04/2024 Travel from Last 3 Months [...] care, and heating? Not very hard 07/05/2024 [facility] Occupat ional Health - Occupational Stress [...] any time in the past 12 m [facility], were you homeless or living in a detention (including now)? No 07/05/2024 Sex and Gender Information Value Date Recorded Sex Assigned at Not on file Legal Sex Male 4:32 AM [facility] OF STUD[facility] Gender Identity Not on file Sexual Orientation Not on file Last Filed Vital Signs Vital Sign Reading Time Taken Comments Blood Pressure 129/91 07/10/2024 4:09 PM [facility] Pulse 81 07/10/2024 4:09 PM [facility] Temperature 36.8 C (98.2 F) 07/10/2024 4:09 PM [facility] Respiratory Rate 18 07/10/2024 4:09 PM [facility] Oxygen Saturation 95% 07/10/2024 4:09 PM [facility] Inhaled Oxygen Concentration - - Weight 72.5 kg (159 lb 13.3 oz) 07/10/2024 4:00 AM [facility] Height 177.8 cm (5' 10 ) 07/05/2024 8:22 PM [facility] Body Mass Index 22.93 07/05/2024 8:22 PM [facility]AIRS Plan of Treatment Health Maintenance Due Date Last Done Comments DTAP/TDAP/TD VACCINES (1 - Tdap) 1961 PNEUMOCOCCAL VACCINE 50+ (1 of 1 - PCV) 1992 ZOSTER VACCINE (1 of 2) 1992 Respiratory Syncytial Virus (RSV) Vaccine Pt: or over 60 yrs (1 - 1-dose 75+ series) 2017 COVID-19 VACCINE ( - 2023-2 5 season) 2024 DEPRESSION SCREENING 06/06/2024 MEDICARE AWV CALENDAR YEAR 2024 INFLUENZA VACCINE (Season Ended) 2025 04/06/20 22 HEPATITIS B VACCINE Aged Out No longe r eligible based on patient's age to complete this topic HIB VACCINE Aged Out No longer eligi ble based on patient's age to complete this topic HPV VACCINE Aged Out No longer eligi ble based on patient's age to complete this topic MENINGOCOCCAL (Group B) VACC INE SHARED DECISION-MAKING Aged Out No longer eligibl e based on patient's age to complete this topic MENINGOCOCCAL GROUPS A/C/Y/W VACCINE Aged Out No longer eligible b ased on patient's age to complete this topic Procedures Procedure Name Priority Date/Time Associated Diagnosis Comments GLUCOSE - POINT OF CARE Routine 07/10/2024 11:33 AM [facility] PHOSPHORUS BLOOD Routine 07/09/2024 3:40 AM [facility] MAGNESIUM BLOOD Routine 07/09/2024 3:40 AM [facility]FFAIRS BASIC METABOLIC PANEL (CALCIUM TOTAL) Routine 07/09/2024 3:40 AM [facility] CBC W AUTO DIFFERENTIAL Routine 07/09/2024 3:39 AM [facility] AFFAIRS PHOSPHORUS BLOOD Routine 07/08/2024 8:43 PM [facility]FFAIRS MAGNESIUM BLOOD Routine 07/08/2024 8:43 PM [facility] CBC W AUTO DIFFERENTIAL Routine 07/08/2024 8:43 PM [facility]AIRS BASIC METABOLIC PANEL (CALCIUM TOTAL) Routine 07/08/2024 8:43 PM [facility] PHOSPHORUS BLOOD Routine 07/07/2024 6:22 AM [facility] MAGNESIUM BLOOD Routine 07/07/2024 6:22 AM [facility] CBC W AUTO DIFFERENTIAL Routine 07/07/2024 6:22 AM [facility] BASIC METABOLIC PANEL (CALCIUM TOTAL) Routine 07/07/2024 6:22 AM [facility] CBC W AUTO DIFFERENTIAL Routine 07/06/2024 7:01 AM [facility] PHOSPHORUS BLOOD Routine 07/06/2024 7:00 AM [facility] MAGNESIUM BLOOD Routine 07/06/2024 7:00 AM [facility] BASIC METABOLIC PANEL (CALCIUM TOTAL) Routine 07/06/2024 7:00 AM [facility] SARS-COV-2 (COVID-19) RAPID STAT 07/05/2024 1:45 PM [facility] Fall, initial encounter CARDIAC EKG ORDER 07/05/2024 11: 30 AM [facility]FFAIRS PHOSPHORUS BLOOD STAT 07/05/2024 3:59 AM [facility]FFAIRS MAGNESIUM BLOOD STAT 07/05/2024 3:59 AM [facility] CBC W AUTO DIFFERENTIAL STAT 07/05/2024 3:59 AM [facility]FFAIRS BASIC METABOLIC PANEL (CALCIUM TOTAL) STAT 07/05/2024 3:59 AM [facility] URINALYSIS W/MICROSCOPIC NO CULTURE STAT 07/05/2024 3:59 AM [facility] URINE DRUG SCREEN IMMUNOASSAY STAT 07/05/2024 3:59 AM [facility] CT HEAD WO CONTRAST STAT 07/04/2024 1 1:19 AM [facility]AIRS SDH (subdural hematoma) BLOOD TYPE VERIFICATION STAT 07/04/2024 9:40 AM [facility] TYPE + SCREEN PANEL STAT 07/04/2024 9 :38 AM [facility]FFA[facility] EKG 12-LEAD STAT 07/04/2024 6:31 AM [facility]AIRS Fall, initial encounter PTT [facility] STAT 07/04/2024 6:24 AM [facility] STUD[facility] AFFAIRS PT-INR [facility] STAT 07/04/2024 6:24 AM [facility] CT LUMBAR SPINE WO CONTRAST STAT 07/04/2024 6:23 AM [facility] Fall, initial encounter CT THORACIC SPINE WO CONTRAST STAT 07/04/2024 6:23 AM [facility]IRS Fall, initial encounter CT CHEST ABDOMEN PELVIS W CONT STAT 07/04/2024 6:23 AM [facility] Fall, initial encounter CT CERVICAL SPINE WO CONTRAST STAT 07/04/2024 6:23 AM [facility] Fall, initial encounter CT HEAD WO CONTRAST STAT 07/04/2024 6 :23 AM [facility] Fall, initial encounter TEG 6S PLATELET MAPPING STAT 07/04/2024 6:00 AM [facility]FFAIRS TEG 6 GLOBAL HEMOSTASIS W/ LYSIS STAT 07/04/2024 6:00 AM [facility] CBC W AUTO DIFFERENTIAL STAT 07/04/2024 6:00 AM [facility]FFAIRS BASIC METABOLIC PANEL (CALCIUM TOTAL) STAT 07/04/2024 6:00 AM [facility]AIRS ALCOHOL ETHYL BLOOD STAT 07/04/2024 6 :00 AM [facility]FFAIRS XR PELVIS 1 OR 2VW STAT 07/04/2024 6: 00 AM [facility] Fall, initial encounter XR CHEST 1VW PORTABLE STAT 07/04/2024 6:00 AM [facility] Fall, initial encounter from Last 3 Months Results * (ABNORMAL) GLUCOSE - POINT OF CARE (07/10/2024 11:33 AM [facility]) Glucose WB/POC 131(H) 70 - 99 mg/dL 07/10/2024 3:47 PM [facility] STUD[facility] AFFAIRS [facility] Specimen Type Cap Fingerstick 2024 3:47 PM [facility] AFFAIRS [facility] Blood BLOOD SPECIMEN / Unknown 07/10/2024 11:33 AM [facility] 07/10/2024 3:47 PM [facility]UD[facility]FFAIRS us Cinthya Orantes MD LAB - POINT OF CARE ORD ERABLES Final Result [facility] [address] [place] [address], [facility] [phone] * (ABNORMAL) BASIC METABOLIC PANEL (CALCIUM TOTAL) (07/09/2024 3:40 AM [facility]) Only the most recent of6 resultswithin the time period is included. BUN 26 7 - 26 mg/dL 07/09/2024 4:55 AM [facility] Creatinine 1.05 0.71 - 1.16 mg/dL 07/09/2024 4:55 AM [facility] Sodium 139 136 - 145 mmol/L 07/09/2024 4:55 AM [facility] Potassium 4.2 3.5 - 4.5 mmol/L 07/09/2024 4:55 AM [facility] Chloride 108(H) 98 - 107 mmol/L 07/09/2024 4:55 AM [facility] CO2 24 22 - 29 mmol/L 07/09/2024 4:55 AM [facility] Glucose 85 70 - 99 mg/dL 07/09/2024 4:55 AM [facility] Calcium 8.1(L) 8.4 - 10.2 mg/dL 07/09/2024 4:55 AM [facility] Anion Gap 7 6 - 16 07/09/2024 4:55 AM [facility] BUN/Creatinine Ratio 25(H) 7 - 23 07/09/2024 4:55 AM [facility] Osmolality Calculated 292 275 - 295 mOsm/kg 07/09/2024 4:55 AM [facility] eGFR by CKD-EPI 71(L) >=90 mL/min/1.7 3 m2 07/09/2024 4:55 AM [facility] Blood BLOOD SPECIMEN / Unknown Lab Venipuncture / Unknown 07/09/2024 3:40 AM [facility] 07/09/2024 4:29 AM [facility] Cinthya Orantes MD LAB - CHEMISTRY ORDERAB LES Final Result Performing Organization Address City/[facility]/ZIP Co de Phone Number [address] [address], [facility] [phone] * PHOSPHORUS BLOOD (07/09/2024 3:40 AM [facility]AIRS) Only the most recent of5 resultswithin the time period is included. Phosphorus 3.5 2.8 - 5.1 mg/dL 07/09/2024 4:55 AM [facility] Blood BLOOD SPECIMEN / Unknown Lab Venipuncture / Unknown 07/09/2024 3:40 AM [facility] 07/09/2024 4:29 AM [facility] Cinthya Orantes MD LAB - CHEMISTRY ORDERAB LES Final Result Performing Organization Address City/[facility]/ZIP Co de Phone Number [address] [address], [facility] [phone] * MAGNESIUM BLOOD (07/09/2024 3:40 AM [facility]) Only the most recent of5 resultswithin the time period is included. Magnesium 2.0 1.6 - 2.6 mg/dL 07/09/2024 4:55 AM [facility] Blood BLOOD SPECIMEN / Unknown Lab Venipuncture / Unknown 07/09/2024 3:40 AM [facility] 07/09/2024 4:29 AM [facility] us Cinthya Orantes MD LAB - CHEMISTRY ORDERAB LES Final Result Performing Organization Address City/[facility]/ZIP Co de Phone Number [address] [address], [facility] [phone] * (ABNORMAL) CBC W AUTO DIFFERENTIAL (07/09/2024 3:39 AM [facility]) Only the most recent of6 resultswithin the time period is included. WBC 5.8 4.0 - 10.7 x10E9/L 07/09/2024 4:44 AM [facility] RBC Count 4.13(L) 4.30 - 5.80 x10E12/L 07/09/2024 4:44 AM [facility] Hemoglobin 12.2(L) 13.3 - 17.5 g/dL 07/09/2024 4:44 AM [facility] Hematocrit 36.8(L) 38.7 - 51.1 % 07/09/2024 4:44 AM [facility] MCV 89.1 80.0 - 98.0 fL 07/09/2024 4:44 AM [facility] MCH 29.5 26.7 - 33.6 pg 07/09/2024 4:44 AM [facility] MCHC 33.2 31.7 - 36.3 g/dL 07/09/2024 4:44 AM [facility] RDW-CV 14.0 11.3 - 14.8 % 07/09/2024 4:44 AM [facility] Platelet Count 105(L) 150 - 420 x10E9/L 07/09/2024 4:44 AM [facility] MPV 10.2 7.8 - 11.4 fL 07/09/2024 4:44 AM [facility] Neutrophil % 59.2 41.0 - 74.0 % 07/09/2024 4:44 AM [facility] Lymphocyte % 21.8 17.0 - 47.0 % 07/09/2024 4:44 AM [facility] Monocyte % 9.3 3.0 - 11.0 % 07/09/2024 4:44 AM [facility] Eosinophil % 8.8(H) 0.0 - 7.0 % 07/09/2024 4:44 AM [facility] Basophil % 0.7 0.0 - 1.6 % 07/09/2024 4:44 AM [facility] Immature Granulocytes % 0.2 0.0 - 1.0 % 07/09/2024 4:44 AM [facility] Neutrophil Absolute 3.42 1.60 - 7.50 x10E9/L 07/09/2024 4:44 AM [facility] Lymphocyte Absolute 1.26 1.00 - 4.40 x10E9/L 07/09/2024 4:44 AM [facility] Monocyte Absolute 0.54 0.15 - 1.00 x10E9/L 07/09/2024 4:44 AM [facility] Eosinophil Absolute 0.51 0.00 - 0.60 x10E9/L 07/09/2024 4:44 AM [facility] Basophil Absolute 0.04 0.00 - 0.13 x10E9/L 07/09/2024 4:44 AM [facility] Blood BLOOD SPECIMEN / Unknown Lab Venipuncture / Unknown 07/09/2024 3:39 AM [facility] 07/09/2024 4:27 AM [facility] Cinthya Orantes MD LAB - HEMATOLOGY ORDERA BLES Final Result [address] [address] [phone] * SARS-COV-2 (COVID-19) RAPID (07/05/2024 1:45 PM [facility]) COVID-19 PCR Not detected Not detected 07/05/19 2:26 PM [facility] Microbiology SPECIMEN FROM NASOPHARYNGEAL STRUCTURE / Unknown Collection / Unknown 07/05/2024 1:45 PM [facility] 07/05/2024 1:53 PM [facility] Narrative [facility] - 07/05/2024 2:26 PM [facility] The Cepheid Xpert Xpress SARS-COV-2 has been [...] this EUA assay are available upon request. us Albert Rivera MD LAB - MICROBIOLOGY ORDERABLES Final Result [facility] [address] [place] [address], [facility] [phone] * CARDIAC EKG ORDER (07/05/2024 11:30 AM [facility]) Narrative 07/05/2024 11:30 AM [facility] Ordered by an unspecified provider. us Scanned Document CARDIAC SERVICES ORDERABLES Fin al Result * (ABNORMAL) URINALYSIS W/MICROSCOPIC NO CULTURE (07/05/2024 3:59 AM [facility]) Color UA Yellow Straw, Yellow 07/05/2024 4:24 AM [facility] Clarity UA Slt Cloudy(A) Clear 07/05/2024 4:24 AM [facility] Specific [place] UA 1.032(H) 1.005 - 1.030 07/05/2024 4:24 AM [facility] pH UA 5.0 5.0 - 8.0 pH 07/05/2024 4:24 AM [facility] Protein UA Negative Negative 07/05/2024 4:24 AM [facility] Glucose UA Negative Negative 07/05/2024 4:24 AM [facility] Ketone UA Trace(A) Negative 07/05/2024 4:24 AM [facility] Bilirubin UA Negative Negative 07/05/2024 4:24 AM [facility] Blood UA Negative Negative 07/05/2024 4:24 AM [facility] Nitrite UA Negative Negative 07/05/2024 4:24 AM [facility] Leukocyte Esterase Trace(A) Negative 07/05/2024 4:24 AM [facility] Urobilinogen UA Negative Negative mg/dL 07/05/2024 4:24 AM [facility] RBC UA 21-50(A) None Seen, 0-2, 3-5 /HPF 07/05/2024 4:24 AM [facility] WBC UA 11-20(A) None Seen, 0-5 /HPF 07/05/2024 4:24 AM [facility] Bacteria UA 1+(A) None /HPF 07/05/2024 4:24 AM [facility] Squamous Epithelial Cells UA None Seen None Seen, 0-2, 3-5 /HPF 07/05/2024 4:24 AM [facility] Amorphous Crystals Few(A) None /HPF 07/05/2024 4:24 AM [facility] Urine URINE SPECIMEN OBTAINED BY CLEAN CATCH PROCEDURE / Unknown Collection / Unknown 07/05/2024 3:59 AM [facility] 07/05/2024 4:03 AM [facility] - 07/05/2024 4:24 AM [facility] Cinthya Orantes MD LAB - URINALYSIS ORDERA BLES Final Result [facility] [address] [place] [phone], [facility] [phone] * (ABNORMAL) URINE DRUG SCREEN IMMUNOASSAY (07/05/2024 3:59 AM [facility]) [facility] Amphetamines Screen Urine Negative Negative : < 1000 ng/mL 07/05/2024 4:42 AM [facility] Barbiturates Screen Urine Positive(A) Negative : < 200 ng/mL 07/05/2024 4:42 AM [facility] Comment: Positive urine barbiturate screening results should be confirmed by another generally accepted non-immunological method such as gas chromatography or mass spectrometry. Benzodiazepine Screen Urine Negative Negative : < 200 ng/mL 07/05/2024 4:42 AM [facility] Opiates Urine Negative Negative : < 300 ng/mL 07/05/2024 4:42 AM [facility] Cocaine Metabolites Urine Negative Negative : < 300 ng/mL 07/05/2024 4:42 AM [facility] Phencyclidine Screen Urine Negative Negative : < 25 ng/ml 07/05/2024 4:42 AM [facility] Cannabinoids Screen Urine Negative Negative : <50 ng/mL 07/05/2024 4:42 AM [facility] Methadone Screen Urine Negative Negative : < 300 ng/mL 07/05/2024 4:42 AM [facility] Fentanyl Screen Urine Negative Negative : <1.5 ng/mL 07/05/2024 4:42 AM [facility] Urine URINE / Unknown Collection / Unknown 07/05/2024 3:59 AM [facility] 07/05/2024 4:04 AM [facility] Narrative [facility] - 07/05/2024 4:42 AM [facility] The Urine Toxicology Screening Panel does not screen for Propoxyphene, Meprobamate, Carisoprodol, Trazodone, pfkf-cem-qizbpwl medications and/or volatiles (Acetone, Isopropanol, Methanol or Ethylene Glycol). Ethanol, Salicylate, Acetaminophen, Tricyclic Antidepressants and several therapeutic drugs may be individually assayed in serum or plasma specimen. Toxicology testing by the [facility] is an aid to medical diagnosis and treatment of patients. No documented chain of custody was maintained. Results are intended to be used for clinical purposes only. us Cinthya Orantes MD LAB - URINE CHEMISTRY O RDERABLES Final Result [facility] [address] [place] [address], [facility] [phone] * CT Head Wo Contrast (07/04/2024 11:19 AM [facility]) Only the most recent of2 resultswithin the time period is included. Anatomical Region Laterality Modality Head Computed Tomogra phy 07/04/2024 11:3 9 AM [facility] Impressions 07/04/2024 11:42 AM [facility] IMPRESSION: 1. Unchanged size of the bilateral subdural hematomas along the cerebral convexities measuring up to 5 mm in maximum thickness. Slightly increased attenuation is likely related to contrast staining from the previous examinations. > Interpreting Provider: Veda Monk MD on 07/04/2024 11:42 AM Narrative 07/04/2024 11:42 AM [facility] PROCEDURE: CT HEAD WO CONTRAST, DATE/TIME OF EXAM: 07/04/2024 11:19 AM, LOCATION [facility] INDICATION: S06.5XAA: SDH (subdural hematoma) (HCC) ADDITIONAL [...] DATE/TIME OF EXAM: 07/04/2024 11:19 AM, LOCATION [facility] INDICATION: S06.5XAA: SDH (subdural hematoma) (HCC) ADDITIONAL CLINICAL INFORMATION: Ordering Provider Reason For Exam: repeat per GY recs Technologist Note: Additional: TECHNIQUE: CT of [...] 11:[address] Or[address] MD [address] ORDERABLES Final R esult * BLOOD TYPE VERIFICATION (07/04/2024 9:40 AM [facility]) ABO Rh O POS 07/04/2024 10:38 AM [facility] Blood Bank BLOOD SPECIMEN / Unknown Venipuncture / Unknown 07/04/2024 9:40 AM [facility] 07/04/2024 9:52 AM [facility] Cinthya Orantes MD LAB - BLOOD BANK ORDERA BLES Final Result Performing Organization Address [facility]/ZIP Co de Phone Number [facility] [address] [place] [phone], [facility] [phone] * TYPE + SCREEN PANEL (07/04/2024 9:38 AM [facility]) Antibody Screen NEG 10:56 AM [facility] ABO Rh O POS 07/04/2024 10:56 AM [facility] Blood Bank BLOOD SPECIMEN / Unknown Venipuncture / Unknown 07/04/2024 9:38 AM [facility] 07/04/2024 9:51 AM [facility] Cinthya Orantes MD LAB - BLOOD BANK ORDERA BLES Final Result Performing Organization Address [facility]/ZIP Co de Phone Number [facility] [address] [place] [phone], [facility] [phone] * EKG 12-LEAD (07/04/2024 6:31 AM [facility]) Ventricular Rate 60 BPM [facility] Atrial Rate 60 BPM [facility] P-R Interval 180 ms [facility] QRS Duration ms 80 ms [facility] Q-T Interval ms 418 ms [facility] QTC Calculation (Bezet) 418 ms [facility] Calculated P [place] 52 degrees [facility] Calculated R [place] -26 degrees [facility] MUSE Calculated T [place] 46 degrees [facility] Interpretation EKG NORMAL SINUS RHYTHM LOW VOLTAGE QRS SEPTAL INFARCT , AGE UNDETERMINED ABNORMAL ECG NO PREVIOUS ECGS AVAILABLE Confirmed by KATY FLEMING MD ([id number]) on 07/13/2024 10:51:42 PM [facility] 07/04/2024 6:31 AM [facility] 07/13/2024 10:51 PM [facility] Cinthya Orantes MD ECG ORDERABLES Edited Result - Final Performing Organization Address City/[facility]/ZIP Co de Phone Number [facility] * PTT [facility] (07/04/2024 6:24 AM [facility]) APTT 23.3 23.0 - 38.4 Seconds 07/04/2024 7:00 AM [facility] Comment:Suggested therapeuti c range for full dose I.V. unfractionated heparin therapy for venous thromboembolism is 71 to 109 seconds. Blood BLOOD SPECIMEN / Unknown Venipuncture / Unknown 07/04/2024 6:24 AM [facility] 07/04/2024 6:35 AM [facility] Cinthya Orantes MD LAB - COAGULATION ORDER CARINE Final Result Performing Organization Address City/[facility]/ZIP Co de Phone Number [facility] [address] [place] [address], [facility] [phone] * PT-INR [facility] (07/04/2024 6:24 AM DIRECTOR OF STUDENT AFFAIRS) PT 14.2 12.1 - 14.8 Seconds 07/04/2024 7:00 AM [facility] INR 1.1 See Comment 07/04/2024 7:00 AM [facility] Comment:The suggested therap eutic range for standard coumadin (warfarin) therapy is an INR of 2.0-3.0. For high-risk patients (Mechanical Mitral Valve Prosthesis, etc.), the suggested prophylactic therapeutic range is an INR of 2.5-3.5. Blood BLOOD SPECIMEN / Unknown Venipuncture / Unknown 07/04/2024 6:24 AM DIRECTOR OF STUDENT AFFAIRS 07/04/2024 6:35 AM DIRECTOR OF STUDENT AFFAIRS us Cinthya Orantes MD LAB - COAGULATION ORDER CARINE Final Result [facility] [address] [place] [id number], [facility] [phone] * CT CHEST ABDOMEN PELVIS W CONT - Abdomen-pelvis trauma, blunt or penetrating (07/04/2024 6:23 AM DIRECTOR OF STUDENT AFFAIRS) Anatomical Region Laterality Modality Chest, Abdomen, Pelvis Computed Tomography 07/04/2024 6:27 AM DIRECTOR OF STUDENT AFFAIRS Impressions 07/04/2024 9:01 AM DIRECTOR OF STUDENT AFFAIRS Impression: 1.No acute visceral, vascular, or osseus injury identified in the chest, abdomen, or pelvis. 2.Ectatic ascending aorta. 3.Moderate hiatal hernia. 4.Soft tissue contusion of right gluteal region. 5.Enlarged prostate with mild bladder wall thickening with slightly trabeculated appearance and a few diverticula overall favored to be related to underlying chronic bladder outlet obstruction. > Dictated by Ant De Jesus MD (vice president of procurement). IPuneet have personally reviewed and interpreted this examination/study. > Interpreting Provider: Puneet Perez on 07/04/2024 9:01 AM Narrative 07/04/2024 9:01 AM DIRECTOR OF STUDENT AFFAIRS PROCEDURE: CT CHEST ABDOMEN PELVIS W CONT, DATE/TIME OF EXAM: 07/04/2024 6:23 AM, LOCATION [facility] INDICATION: Trauma ADDITIONAL CLINICAL INFORMATION: Ordering Provider [...] CONT, DATE/TIME OF EXAM:07/04/2024 6:23 AM, LOCATION [facility] INDICATION: Trauma ADDITIONAL CLINICAL INFORMATION: Ordering Provider [...] > Dictated by Ant De Jesus MD (vice president of procurement). Puneet Esparza have personally reviewed and interpreted this examination/study. > Interpreting Provider: Puneet Perez on 07/04/2024 9:01 AM us Cinthya Orantes MD CT ORDERABLES Final R esult * CT LUMBAR SPINE WO CONTRAST - T/L-spine trauma, Spine fracture (07/04/2024 6:23 AM DIRECTOR OF STUDENT AFFAIRS) Anatomical Region Laterality Modality Spine Computed Tomogra phy 07/04/2024 8:00 AM DIRECTOR OF STUDENT AFFAIRS Impressions 07/04/2024 11:32 AM DIRECTOR OF STUDENT AFFAIRS IMPRESSION: 1. No evidence of acute fracture in the cervical, thoracic, or lumbar spine. 2. Multiple chronic findings as detailed in the report. > Dictated by Arnoldo Banks MD, (vice president of procurement). Veda Esparza MD have personally reviewed and interpreted this examination/study. > Interpreting Provider: Veda Monk MD on 07/04/2024 11:32 AM Narrative 07/04/2024 11:32 AM DIRECTOR OF STUDENT AFFAIRS PROCEDURE: CT CERVICAL SPINE WO CONTRAST, CT LUMBAR SPINE WO CONTRAST, CT THORACIC SPINE WO CONTRAST, DATE/TIME OF EXAM: 07/04/2024 6:23 AM, LOCATION [facility] INDICATION: Trauma ADDITIONAL CLINICAL INFORMATION: Ordering Provider [...] degrees of up to moderate facet osteoarthritis biso-zq-bkhjtyal neuroforaminal stenosis in the right L4-L5 neural foramina . Procedure Note Veda Monk MD - 07/04/2024 PROCEDURE: CT CERVICAL SPINE WO CONTRAST, CT LUMBAR SPINE WO CONTRAST,CT THORACIC SPINE WO CONTRAST, DATE/TIME OF EXAM: 07/04/2024 6:23 AM,LOCATION [facility] INDICATION: Trauma ADDITIONAL CLINICAL INFORMATION: Ordering Provider [...] varyingdegrees of up to moderate facet osteoarthritis cegt-pj-gkcpqrok neuroforaminal stenosis in the right L4-L5 neural foramina . IMPRESSION: 1. No evidence of acute fracture in the cervical, thoracic, or lumbar spine. 2. Multiple chronic findings as detailed in the report. > Dictated by Arnoldo Banks MD, (vice president of procurement). Veda Esparza MD have personally reviewed and interpreted this examination/study. > Interpreting Provider: Veda Monk MD on 07/04/2024 11:32 AM us Cinthya Orantes MD CT ORDERABLES Final R esult * CT THORACIC SPINE WO CONTRAST - T/L-spine trauma, spine fracture (07/04/2024 6:23 AM DIRECTOR OF STUDENT AFFAIRS) Anatomical Region Laterality Modality Spine Computed Tomogra phy 07/04/2024 8:00 AM DIRECTOR OF STUDENT AFFAIRS Impressions 07/04/2024 11:32 AM DIRECTOR OF STUDENT AFFAIRS IMPRESSION: 1. No evidence of acute fracture in the cervical, thoracic, or lumbar spine. 2. Multiple chronic findings as detailed in the report. > Dictated by Arnoldo Banks MD, (vice president of procurement). Veda Esparza MD have personally reviewed and interpreted this examination/study. > Interpreting Provider: Veda Monk MD on 07/04/2024 11:32 AM Narrative 07/04/2024 11:32 AM DIRECTOR OF STUDENT AFFAIRS PROCEDURE: CT CERVICAL SPINE WO CONTRAST, CT LUMBAR SPINE WO CONTRAST, CT THORACIC SPINE WO CONTRAST, DATE/TIME OF EXAM: 07/04/2024 6:23 AM, LOCATION 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 Procedure Note Veda Monk MD - 07/04/2024 PROCEDURE: CT CERVICAL SPINE WO CONTRAST, CT LUMBAR SPINE WO CONTRAST,CT THORACIC SPINE WO CONTRAST, DATE/TIME OF EXAM: 07/04/2024 6:23 AM,LOCATION 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 IMPRESSION: 1. No evidence of acute fracture in the cervical, thoracic, or lumbar spine. 2. Multiple chronic findings as detailed in the report. > Dictated by Arnoldo Banks MD, (vice president of procurement). I, Veda Monk MD have personally reviewed and interpreted this examination/study. > Interpreting Provider: Veda Monk MD on 07/04/2024 11:32 AM us Cinthya Orantes MD CT ORDERABLES Final R esult * CT CERVICAL SPINE WO CONTRAST - C-Spine Trauma, Spine fracture (07/04/2024 6:23 AM DIRECTOR OF STUDENT AFFAIRS) Anatomical Region Laterality Modality Spine Computed Tomogra phy 07/04/2024 8:00 AM DIRECTOR OF STUDENT AFFAIRS Impressions 07/04/2024 11:32 AM DIRECTOR OF STUDENT AFFAIRS IMPRESSION: 1. No evidence of acute fracture in the cervical, thoracic, or lumbar spine. 2. Multiple chronic findings as detailed in the report. > Dictated by Arnoldo Banks MD, (vice president of procurement). I, Veda Monk MD have personally reviewed and interpreted this examination/study. > Interpreting Provider: Veda Monk MD on 07/04/2024 11:32 AM Narrative 07/04/2024 11:32 AM DIRECTOR OF STUDENT AFFAIRS PROCEDURE: CT CERVICAL SPINE WO CONTRAST, CT LUMBAR SPINE WO CONTRAST, CT THORACIC SPINE WO CONTRAST, DATE/TIME OF EXAM: 07/04/2024 6:23 AM, LOCATION 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 Procedure Note Veda Monk MD - 07/04/2024 PROCEDURE: CT CERVICAL SPINE WO CONTRAST, CT LUMBAR SPINE WO CONTRAST,CT THORACIC SPINE WO CONTRAST, DATE/TIME OF EXAM: 07/04/2024 6:23 AM,LOCATION 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 IMPRESSION: 1. No evidence of acute fracture in the cervical, thoracic, or lumbar spine. 2. Multiple chronic findings as detailed in the report. > Dictated by Arnoldo Banks MD, (vice president of procurement). I, Veda Monk MD have personally reviewed and interpreted this examination/study. > Interpreting Provider: Veda Monk MD on 07/04/2024 11:32 AM us Cinthya Orantes MD CT ORDERABLES Final R esult * (ABNORMAL) TEG 6 GLOBAL HEMOSTASIS W/ LYSIS (07/04/2024 6:00 AM DIRECTOR OF STUDENT AFFAIRS) Citrated Kaolin R (Reaction Time) 2.6(L) 4.6 - 9.1 min 07/04/2024 7:39 AM [facility] Comment:CK R result below no rmal range. Consistent with hypercoagulable clotting factors. Citrated Kaolin LY30 (Lysis) 0.0 0.0 - 2.6 % 07/04/2024 7:39 AM [facility] Citrated Functional Fibrinogen MA (Max Amplitude) 13.1(L) 15.0 - 32.0 mm 07/04/2024 7:39 AM [facility] Comment:CFF MA below normal range. Consistent with decreased fibrinogen contribution to clot strength. Citrated RapidTEG MA (Max Amplitude) 49.6(L) 52.0 - 70.0 mm 07/04/2024 7:39 AM [facility] Comment:COUNSELING CENTER DIRECTOR MA below normal range. Consistent with reduced clot strength from platelets or fibrinogen. Compare with CFF MA. Blood BLOOD SPECIMEN / Unknown Venipuncture / Unknown 07/04/2024 6:00 AM DIRECTOR OF STUDENT AFFAIRS 07/04/2024 6:37 AM [facility] us Cinthya Orantes MD LAB - HEMATOLOGY ORDERA BLES Final Result [facility] [address] [place] [id number], [facility] [phone] * (ABNORMAL) TEG 6S PLATELET MAPPING (07/04/2024 6:00 AM DIRECTOR OF STUDENT AFFAIRS) TEGPLM (Max Amplitude) Koalin 52.8(L) 53.0 - 68.0 mm 07/04/2024 7:23 AM [facility] TEGPLM (Max Amplitude) ACTF 3.6 2.0 - 19.0 mm 07/04/2024 7:23 AM [facility] TEGPLM (Max Amplitude) ADP 16.8(L) 45.0 - 69.0 mm 07/04/2024 7:23 AM [facility] Comment:ADP MA below normal range. Inhibition present. TEGPLM (Max Amplitude) AA 8.1(L) 51.0 - 71.0 mm 07/04/2024 7:23 AM [facility] Comment:AA MA below normal r ct. Inhibition present. TEGPLM %Inhibition ADP 73.2(H) 0.0 - 17.0 % 07/04/2024 7:23 AM [facility] TEGPLM %Inhibition AA 90.9(H) 0.0 - 11.0 % 07/04/2024 7:23 AM [facility] TEGPLM %Aggregation ADP 26.8(L) 83.0 - 100.0 % 07/04/2024 7:23 AM [facility] TEGPLM % Aggregation AA 9.1(L) 89.0 - 100.0 % 07/04/2024 7:23 AM [facility] Blood BLOOD SPECIMEN / Unknown Venipuncture / Unknown 07/04/2024 6:00 AM [facility] 07/04/2024 6:37 AM [facility] us Cinthya Orantes MD LAB - HEMATOLOGY ORDERA BLES Final Result Performing Organization Address City/State/[facility] Co de Phone Number [facility] [address] [place] [phone], [facility] [phone] * ALCOHOL ETHYL BLOOD (07/04/2024 6:00 AM [facility]) Ethanol (mg/dL) <10 <10 mg/dL 7:03 AM [facility] Ethanol Calculated (g/dL) <0.010 <=0.010 g/dL 07/04/2024 7:03 AM [facility] Blood BLOOD SPECIMEN / Unknown Venipuncture / Unknown 07/04/2024 6:00 AM [facility] 07/04/2024 6:39 AM [facility] Narrative [facility] - 07/04/2024 7:03 AM [facility] Ethanol Interp <10: None Detected. Depression of DRYWALL APPLICATOR: >100 mg/dl Potentially Critical: >250 mg/dl Potentially Fatal >400 mg/dl Ethanol in the patient's blood will contribute to the osmolar gap. Ethanol's contribution to the osmolar gap can be estimated by dividing the concentration of ethanol in mg/dL by 4.6. This test is for clinical use only and does not equal a JEREMY for legal purposes. us Cinthya Orantes MD LAB - CHEMISTRY ORDERAB LES Final Result [facility] [place] [address], [facility] [phone] * XR CHEST 1VW PORTABLE (07/04/2024 6:00 AM DIRECTOR OF STUDENT AFFAIRS) Anatomical Region Laterality Modality Chest Digital Radiogra phy 07/04/2024 6:08 AM DIRECTOR OF STUDENT AFFAIRS Impressions 07/04/2024 9:56 AM DIRECTOR OF STUDENT AFFAIRS IMPRESSION: No acute pulmonary disease. Prominence of the aortic arch could indicate aortic dilatation. > Dictated by Pauline Bravo MD (vice president of procurement) Elkin Esparza MD have personally reviewed and interpreted this examination/study. > Interpreting Provider: Elkin Eric MD on 07/04/2024 9:56 AM Narrative 07/04/2024 9:56 AM DIRECTOR OF STUDENT AFFAIRS PROCEDURE: XR CHEST 1VW PORTABLE, DATE/TIME OF EXAM: 07/04/2024 6:08 AM, LOCATION [facility] INDICATION: Trauma ADDITIONAL CLINICAL INFORMATION: Ordering Provider Reason For Exam: Technologist Note: Additional: COMPARISON: None. FINDINGS: There is no pulmonary consolidation, pleural effusion, or pneumothorax. The heart size is normal. Prominence of the aortic arch could indicate aortic dilatation. Procedure Note Elkin Eric MD - 07/04/2024 PROCEDURE: XR CHEST 1VW PORTABLE, DATE/TIME OF EXAM: 07/04/2024 6:08AM, LOCATION [facility] INDICATION: Trauma ADDITIONAL CLINICAL INFORMATION: Ordering Provider Reason For Exam: Technologist Note: Additional: COMPARISON: None. FINDINGS: There is no pulmonary consolidation, pleural effusion, or pneumothorax. The heart size is normal. Prominence of the aortic arch could indicate aortic dilatation. IMPRESSION: No acute pulmonary disease. Prominence of the aortic arch could indicate aortic dilatation. > Dictated by Pauline Bravo MD (vice president of procurement) Elkin Esparza MD have personally reviewed and interpreted this examination/study. > Interpreting Provider: Elkin Eric MD on 07/04/2024 9:56 AM us Cinthya Orantes MD DIAGNOSTIC IMAGING ORDNighat JADE Final Result * XR PELVIS 1 OR 2VW (07/04/2024 6:00 AM DIRECTOR OF STUDENT AFFAIRS) Anatomical Region Laterality Modality Pelvis Digital Radiogra phy 07/04/2024 6:34 AM DIRECTOR OF STUDENT AFFAIRS Impressions 07/04/2024 9:54 AM DIRECTOR OF STUDENT AFFAIRS IMPRESSION: No acute fracture identified. Report dictated by Pauline Bravo MD (vice president of procurement). Elkin Esparza MD have personally reviewed and interpreted this examination/study. > Interpreting Provider: Elkin Eric MD on 07/04/2024 9:54 AM Narrative 07/04/2024 9:54 AM DIRECTOR OF STUDENT AFFAIRS PROCEDURE: XR PELVIS 1 OR 2VW, DATE/TIME OF EXAM: 07/04/2024 6:08 AM, LOCATION [facility] INDICATION: Trauma Fracture suspected COMPARISON: None. FINDINGS: No acute fracture is identified. The femoral heads appear well-seated within their respective acetabula. The pubic symphysis is intact. Bone density and texture are normal. The sacroiliac joints are normal. Procedure Note Elkin Eric MD - 07/04/2024 PROCEDURE: XR PELVIS 1 OR 2VW, DATE/TIME OF EXAM: 07/04/2024 6:08 AM, LOCATION [facility] INDICATION: Trauma Fracture suspected COMPARISON: None. FINDINGS: No acute fracture is identified. The femoral heads appear well-seated within their respective acetabula. The pubic symphysis is intact. Bone density and texture are normal. The sacroiliac joints are normal. IMPRESSION: No acute fracture identified. Report dictated by Pauline Bravo MD (vice president of procurement). Elkin Esparza MD have personally reviewed and interpreted this examination/study. > Interpreting Provider: Elkin Eric MD on 07/04/2024 9:54 AM us Cinthya Orantes MD DIAGNOSTIC IMAGING HETAL JADE Final Result from Last 3 Months Insurance [employer] MEDICARE ADV HMO & PPO Care Teams Wine Sales Representative Relationship Specialty Start Date End Date Darren Butler DO [address] [place] [phone] PCP - General Internal Medicine 07/05/24
--- OUTSIDE RECORDS SUMMARY | 2024-09-28 15:20 | XMS_ITS | Encounter Summary ---
Author Organization [facility] Address [address] 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
--- OUTSIDE RECORDS SUMMARY | 2024-09-28 15:20 | XMS_ITS | Encounter Summary ---
Author Organization [facility] Address [address] [place] [address] Care Team Providers Care Network Analyst Name Role Phone Jeremy Carreon MD Primary Care Provider [phone] Encounter Details Date Type Department Care Team (Latest Contact Info) Description 07/19/2000 Outpatient Historical [facility] SINAI Boyd, MD [place] 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
--- OUTSIDE RECORDS SUMMARY | 2024-09-28 15:20 | XMS_ITS | Encounter Summary ---
Author Organization [facility] Address [address] [place] [address] Care Team Providers Care Patient Scheduling Manager Name Role Phone Jeremy Carreon MD Primary Care Provider [phone] Encounter Details Date Type Department Care Team (Latest Contact Info) Description 12/10/2003 Outpatient Historical HIS [facility] SINAI Boyd, MD [place] [address] [place] [address] HYPERTENSION NOS (Primary Dx) Social History Tobacco Use Types Packs/Day Years Used Date Smoking Tobacco: Never Assessed Sex and Gender Information Value Date Recorded Sex Assigned at Not on file Legal Sex Male 3:20 AM COSMETICS DEMONSTRATOR Gender Identity Not on file Sexual Orientation Not on file documented as of this encounter Plan of Treatment Not on file documented as of this encounter Visit Diagnoses Diagnosis Unspecified essential hypertension- Primary documented in this encounter Care Teams Patient Scheduling Manager Relationship Specialty Start Date End Date Jeremy Carreon MD [facility] [place] [phone] PCP - General Internal Medicine 05/17/19 02/14/23 documented as of this encounter
--- OUTSIDE RECORDS SUMMARY | 2024-09-28 15:20 | XMS_ITS | Data Portability ---
Author Organization [place] [facility] [employer] Address [address] [place] [address] Care Team Providers Care Body Trimmer Name Role Phone MARK ANTHONY TORREZ Psych Sales Specialist OMID CANALES Independent Contractor GLORIA SAUNDERS Body Specialist CHERY VACA Medical Oncologist [phone] MO CARMEN OTHER Assessment Encounter Date Assessment [...] time spent in any separately reportable services. [email or web address] Not available 02/22/2023 17:13:20 03/21/2023 03/21/2023 Medication [...] plan. F/U 12 weeks, sooner if needed [email or web address] Not available 03/21/2023 12:42:27 06/14/2023 06/14/2023 Medication [...] appropriate fluid levels. Faxed lab results to underwriting director. HTN controlled with medication but slightly elevated [...] plan. F/U 12 weeks, sooner if needed [email or web address] Not available 07/13/2023 07:29:53 08/03/2023 08/03/2023 Medication [...] time spent in any separately reportable services. [email or web address] Not available 08/04/2023 07:06:09 Plan of Treatment Reminders Order Date Submit Date Provider Last Modified By Organization Details Last Modified Time Details Appointments None recorded. Lab unlisted lab - complete blood count with auto diff* [address], [place], [address], 4 13:42:47 CMP, serum or plasma [address], [place], [address], 4 13:42:48 magnesium, serum or plasma [address], [place], [address], 4 13:42:49 iron, serum [address], [place], [address], 4 13:42:49 vitamin B12, serum [address], [place], [address], 4 13:42:50 unlisted lab - folate [address], [place], [address], 4 13:42:48 CMP, serum or plasma [address], [place], [address], 3 12:29:59 unlisted lab - complete blood count with auto diff* 2022 023 [email or web address], [address], [place], [address], 3 12:30:00 magnesium, serum or plasma 2022 [facility]23 [email or web address], [address], [place], [address], 3 12:29:59 Referral occupation al therapist referral 2023 024 [facility] [place], [address], [place], [address], 4 13:43:41 physical therapist referral 2023 024 [facility] [place], [address], [place], [address], 4 13:43:24 physical therapist referral 2023 024 [facility] [place], [address], [place], [address], 4 13:43:54 dermatolog ist referral - Back of scalp 2022 023 [email or web address] [facility] [place], [address], [place], [address], 3 12:05:49 Procedures None recorded. Surgeries None recorded. Imaging XR, hip + pelvis, unilateral , 4 or more view 2023 024 [facility] ([facility]), [address], [place], [address], 4 14:50:42 XR, sacrum + coccyx, 2 or more view 2023 024 [email or web address] [facility] ([facility]), [address], [place], [address], 4 15:47:01 XR, lumbar spine, 2 view 2023 024 [email or web address] [facility] ([facility]), [address], [place], [address], 4 15:47:13 XR, thoracic spine, 3 view 2022 023 [email or web address] [facility] ([facility]), [address], [place], [address], 3 19:33:44 Medication Orders None recorded. Patient TargetsNo targets recorded. Patient Instructions Encounter Date Encounter Id Patient Instructions Last Modified By Organization Details Last Modified Time 02/21/2023 [id number] care plan* [email or web address] Not available 02/04 16:44:58 Reason for Referral Body Specialist Referral for N eoplasm of uncertain behavior [...] [facility] [address], [place], [address], 03/02/2023 12:21:36 03/01/20 23 03/01/2023 COMPL ETE BLOOD COUNT WITH AUTO DIFF* RBC 4.97 10E6/ uL 4.60-6 .00 Not Available [facility] [address], [place], [address], 03/02/2023 12:21:36 03/01/20 23 03/01/2023 COMPL ETE BLOOD COUNT WITH AUTO DIFF* HGB 15.4 g/dL 14.0-1 8.0 Not Available [facility] [address], [place], [address], 03/02/2023 12:21:36 03/01/20 23 03/01/2023 COMPL ETE BLOOD COUNT WITH AUTO DIFF* HCT 45.7 % 40.0-5 4.0 Not Available [facility] [address], [place], [address], 03/02/2023 12:21:36 03/01/20 23 03/01/2023 COMPL ETE BLOOD COUNT WITH AUTO DIFF* MCV 92 fL 80-100 Not Available [facility] [address], [place], [address], 03/02/2023 12:21:36 03/01/20 23 03/01/2023 COMPL ETE BLOOD COUNT WITH AUTO DIFF* MCH 31 pg 26-32 Not Available [facility] [address], [place], [address], 03/02/2023 12:21:36 03/01/20 23 03/01/2023 COMPL ETE BLOOD COUNT WITH AUTO DIFF* MCHC 34 g/dL 32-36 Not Available [facility] [address], [place], [address], 03/02/2023 12:21:36 03/01/20 23 03/01/2023 COMPL ETE BLOOD COUNT WITH AUTO DIFF* RDW 13.6 % 11.5-1 4.5 Not Available [facility] [address], [place], [address], 03/02/2023 12:21:36 09/26/20 23 03/01/2023 COMPL ETE BLOOD COUNT WITH AUTO DIFF* plt 136 10E3/ uL 150-45 0 low Not Available [facility] [address], [place], [address], 03/02/2023 12:21:36 03/01/20 23 03/01/2023 COMPL ETE BLOOD COUNT WITH AUTO DIFF* neut% 68.3 % 50.0-7 0.0 Not Available [facility] [address], [place], [address], 03/02/2023 12:21:36 03/01/20 23 03/01/2023 COMPL ETE BLOOD COUNT WITH AUTO DIFF* lymph% 22.1 % 18.0-4 2.0 Not Available [facility] [address], [place], [address], 03/02/2023 12:21:36 03/01/20 23 03/01/2023 COMPL ETE BLOOD COUNT WITH AUTO DIFF* mono% 5.9 % 2.0-11 .0 Not Available [facility] [address], [place], [address], 03/02/2023 12:21:36 03/01/20 23 03/01/2023 COMPL ETE BLOOD COUNT WITH AUTO DIFF* eos% 2.6 % 1.0-3. 0 Not Available [facility] [address], [place], [address], 03/02/2023 12:21:36 03/01/20 23 03/01/2023 COMPL ETE BLOOD COUNT WITH AUTO DIFF* baso% 0.8 % 0.0-2. 0 Not Available [facility] [address], [place], [address], 03/02/2023 12:21:36 03/01/20 23 03/01/2023 COMPL ETE BLOOD COUNT WITH AUTO DIFF* Ig% 0.3 % 0.0-0. 6 Not Available [facility] [address], [place], [address], 03/02/2023 12:21:36 03/01/20 23 03/01/2023 COMPL ETE BLOOD COUNT WITH AUTO DIFF* neut# 4.53 10E3/ uL 2.30-8 .10 Not Available [facility] [address], [place], [address], 03/02/2023 12:21:36 03/01/20 23 03/01/2023 COMPL ETE BLOOD COUNT WITH AUTO DIFF* lymph# 1.46 10E3/ uL 0.80-4 .80 Not Available [facility] [address], [place], [address], 03/02/2023 12:21:36 03/01/20 23 03/01/2023 COMPL ETE BLOOD COUNT WITH AUTO DIFF* mono# 0.39 10E3/ uL 0.45-1 .30 low Not Available [facility] [address], [place], [address], 03/02/2023 12:21:36 03/01/20 23 03/01/2023 COMPL ETE BLOOD COUNT WITH AUTO DIFF* eos# 0.17 10E3/ uL 0.00-0 .40 [facility] Available [facility] [address], [place], [address], 03/02/2023 12:21:36 03/01/20 23 03/01/2023 COMPL ETE BLOOD COUNT WITH AUTO DIFF* baso# 0.05 10E3/ uL 0.00-0 .10 Not Available [facility] [address], [place], [address], 03/02/2023 12:21:36 03/01/20 23 03/01/2023 COMPL ETE BLOOD COUNT WITH AUTO DIFF* Ig# 0.02 10E3/ uL 0.00-0 .09 Not Available [facility] [address], [place], [address], 03/02/2023 12:21:36 03/01/20 23 03/01/2023 COMPR EHENS [...] Available [facility] [address], [place], [address], 03/02/2023 12:21:37 03/01/20 23 03/01/2023 COMPR EHENS DAVID METAB OLIC PANEL * BUN 16 mg/dL 8-23 Not Available [facility] [address], [place], [address], 03/02/2023 12:21:37 03/01/20 23 03/01/2023 COMPR EHENS DAVID METAB OLIC PANEL * calcium 8.7 mg/dL 8.8-10 .2 low Not Available [facility] [address], [place], [address], 03/02/2023 12:21:37 03/01/20 23 03/01/2023 COMPR EHENS DAVID METAB OLIC PANEL * creatinine 1.14 mg/dL 0.80-1 .30 Not Available [facility] [address], [place], [address], 03/02/2023 12:21:37 03/01/20 23 03/01/2023 COMPR EHENS DAVID METAB OLIC PANEL * sodium 143 mmol/ L 136-14 5 Not Available [facility] [address], [place], [address], 03/02/2023 12:21:37 03/01/20 23 03/01/2023 COMPR EHENS DAVID METAB OLIC PANEL * potassium 4.5 mmol/ L 3.5-5. 1 Not Available [facility] [address], [place], [address], 03/02/2023 12:21:37 03/01/20 23 03/01/2023 COMPR EHENS DAVID METAB OLIC PANEL * chloride 106 mEq/L 98-107 Not Available [facility] [address], [place], [address], 03/02/2023 12:21:37 03/01/20 23 03/01/2023 COMPR EHENS DAVID METAB OLIC PANEL * carbon dioxide 28 mmol/ L 23-30 Not Available [facility] [address], [place], [address], 03/02/2023 12:21:37 03/01/20 23 03/01/2023 COMPR EHENS DAVID METAB OLIC PANEL * total protein 5.9 g/dL 6.2-8. 1 low Not Available [facility] [address], [place], [address], 03/02/2023 12:21:37 03/01/20 23 03/01/2023 COMPR EHENS DAVID METAB OLIC PANEL * albumin 3.7 g/dL 3.2-4. 6 Not Available [facility] [address], [place], [address], 03/02/2023 12:21:37 03/01/20 23 03/01/2023 COMPR EHENS DAVID METAB OLIC PANEL * globulin 2.2 g/dL 2.3-3. 4 low Not Available [facility] [address], [place], [address], 03/02/2023 12:21:37 03/01/20 23 03/01/2023 COMPR EHENS DAVID METAB OLIC PANEL * A/G ratio 1.7 g/dL 0.8-2. 0 Not Available [facility] [address], [place], [address], 03/02/2023 12:21:37 03/01/20 23 03/01/2023 COMPR EHENS DAVID METAB OLIC PANEL * alkaline phosphatase 80 U/L 30-120 Not Available [facility] [address], [place], [address], 03/02/2023 12:21:37 03/01/20 23 03/01/2023 COMPR EHENS DAVID METAB OLIC PANEL * ALT (SGPT) 17 U/L 13-40 Not Available [facility] [address], [place], [address], 03/02/2023 12:21:37 03/01/20 23 03/01/2023 COMPR EHENS DAVID METAB OLIC PANEL * AST (SGOT) 15 U/L 19-48 low Not Available [facility] [address], [place], [address], 03/02/2023 12:21:37 03/01/20 23 03/01/2023 COMPR EHENS DAVID METAB OLIC PANEL * bilirubin, total 0.79 mg/dL 0.20-1 .10 Not Available [facility] [address], [place], [address], 03/02/2023 12:21:37 03/01/20 23 03/01/2023 COMPR EHENS [...] Available [facility] [address], [place], [address], 03/02/2023 12:21:37 03/01/2003/01/2023 MAGNE SIUM* magnesium 2.00 mg/dL 1.60-2 .40 Not Available [facility] [address], [place], [address], 03/02/2023 12:21:37 06/23/19 24 06/23/2023 COMPL ETE BLOOD COUNT WITH AUTO DIFF* WBC 7.19 10E3/ uL 4.50-1 1.50 Not Available [facility] [address], [place], [address], 06/24/2023 13:42:47 06/23/19 24 06/23/2023 COMPL ETE BLOOD COUNT WITH AUTO DIFF* RBC 4.55 10E6/ uL 4.60-6 .00 low Not Available [facility] [address], [place], [address], 06/24/2023 13:42:47 06/23/19 24 06/23/2023 COMPL ETE BLOOD COUNT WITH AUTO DIFF* HGB 13.8 g/dL 14.0-1 8.0 low Not Available [facility] [address], [place], [address], 06/24/2023 13:42:47 06/23/19 24 06/23/2023 COMPL ETE BLOOD COUNT WITH AUTO DIFF* HCT 40.5 % 40.0-5 4.0 Not Available [facility] [address], [place], [address], 06/24/2023 13:42:47 06/23/19 24 06/23/2023 COMPL ETE BLOOD COUNT WITH AUTO DIFF* MCV 89 fL 80-100 Not Available [facility] [address], [place], [address], 06/24/2023 13:42:47 06/23/19 24 06/23/2023 COMPL ETE BLOOD COUNT WITH AUTO DIFF* MCH 30 pg 26-32 Not Available [facility] [address], [place], [address], 06/24/2023 13:42:47 06/23/19 24 06/23/2023 COMPL ETE BLOOD COUNT WITH AUTO DIFF* MCHC 34.1 g/dL 32.0-3 6.0 Not Available [facility] [address], [place], [address], 06/24/2023 13:42:47 06/23/19 24 06/23/2023 COMPL ETE BLOOD COUNT WITH AUTO DIFF* RDW 13.2 % 11.5-1 4.5 Not Available [facility] [address], [place], [address], 06/24/2023 13:42:47 06/23/19 24 06/23/2023 COMPL ETE BLOOD COUNT WITH AUTO DIFF* plt 129 10E3/ uL 150-45 0 low Not Available [facility] [address], [place], [address], 06/24/2023 13:42:47 06/23/19 24 06/23/2023 COMPL ETE BLOOD COUNT WITH AUTO DIFF* neut% 71.7 % 50.0-7 0.0 high Not Available [facility] [address], [place], [address], 06/24/2023 13:42:47 06/23/19 24 06/23/2023 COMPL ETE BLOOD COUNT WITH AUTO DIFF* lymph% 19.1 % 18.0-4 2.0 Not Available [facility] [address], [place], [address], 06/24/2023 13:42:47 06/23/19 24 06/23/2023 COMPL ETE BLOOD COUNT WITH AUTO DIFF* mono% 5.7 % 2.0-11 .0 Not Available [facility] [address], [place], [address], 06/24/2023 13:42:47 06/23/19 24 06/23/2023 COMPL ETE BLOOD COUNT WITH AUTO DIFF* eos% 2.5 % 1.0-3. 0 Not Available [facility] [address], [place], [address], 06/24/2023 13:42:47 06/23/19 24 06/23/2023 COMPL ETE BLOOD COUNT WITH AUTO DIFF* baso% 0.6 % 0.0-2. 0 Not Available [facility] [address], [place], [address], 06/24/2023 13:42:47 06/23/19 24 06/23/2023 COMPL ETE BLOOD COUNT WITH AUTO DIFF* Ig% 0.4 % 0.0-0. 6 Not Available [facility] [address], [place], [address], 06/24/2023 13:42:47 06/23/19 24 06/23/2023 COMPL ETE BLOOD COUNT WITH AUTO DIFF* neut# 5.16 10E3/ uL 2.30-8 .10 Not Available [facility] [address], [place], [address], 06/24/2023 13:42:47 06/23/19 24 06/23/2023 COMPL ETE BLOOD COUNT WITH AUTO DIFF* lymph# 1.37 10E3/ uL 0.80-4 .80 Not Available [facility] [address], [place], [address], 06/24/2023 13:42:47 06/23/19 24 06/23/2023 COMPL ETE BLOOD COUNT WITH AUTO DIFF* mono# 0.41 10E3/ uL 0.45-1 .30 low Not Available [facility] [address], [place], [address], 06/24/2023 13:42:47 06/23/19 24 06/23/2023 COMPL ETE BLOOD COUNT WITH AUTO DIFF* eos# 0.18 10E3/ uL 0.00-0 .40 Not Available [facility] [address], [place], [address], 06/24/2023 13:42:47 06/23/19 24 06/23/2023 COMPL ETE BLOOD COUNT WITH AUTO DIFF* baso# 0.04 10E3/ uL 0.00-0 .10 Not Available [facility] [address], [place], [address], 06/24/2023 13:42:47 06/23/19 24 06/23/2023 COMPL ETE BLOOD COUNT WITH AUTO DIFF* Ig# 0.03 10E3/ uL 0.00-0 .09 Not Available [facility] [address], [place], [address], 06/24/2023 13:42:47 06/23/19 24 06/23/2023 COMPR EHENS [...] Available [facility] [address], [place], [address], 06/24/2023 13:42:48 06/23/19 24 06/23/2023 COMPR EHENS DAVID METAB OLIC PANEL * BUN 26 mg/dL 8-23 high Not Available [facility] [address], [place], [address], 06/24/2023 13:42:48 06/23/19 24 06/23/2023 COMPR EHENS DAVID METAB OLIC PANEL * calcium 8.5 mg/dL 8.8-10 .2 low Not Available [facility] [address], [place], [address], 06/24/2023 13:42:48 06/23/19 24 06/23/2023 COMPR EHENS DAVID METAB OLIC PANEL * creatinine 1.31 mg/dL 0.80-1 .30 high Not Available [facility] [address], [place], [address], 06/24/2023 13:42:48 06/23/19 24 06/23/2023 COMPR EHENS DAVID METAB OLIC PANEL * sodium 142 mmol/ L 136-14 5 Not Available [facility] [address], [place], [address], 06/24/2023 13:42:48 06/23/19 24 06/23/2023 COMPR EHENS DAVID METAB OLIC PANEL * potassium 4.3 mmol/ L 3.5-5. 1 Not Available [facility] [address], [place], [address], 06/24/2023 13:42:48 06/23/19 24 06/23/2023 COMPR EHENS DAVID METAB OLIC PANEL * chloride 107 mEq/L 98-107 Not Available [facility] [address], [place], [address], 06/24/2023 13:42:48 06/23/19 24 06/23/2023 COMPR EHENS DAVID METAB OLIC PANEL * carbon dioxide 25 mmol/ L 23-30 Not Available [facility] [address], [place], [address], 06/24/2023 13:42:48 06/23/19 24 06/23/2023 COMPR EHENS DAVID METAB OLIC PANEL * total protein 5.0 g/dL 6.2-8. 1 low Not Available [facility] [address], [place], [address], 06/24/2023 13:42:48 06/23/19 24 06/23/2023 COMPR EHENS DAVID METAB OLIC PANEL * albumin 3.1 g/dL 3.2-4. 6 low Not Available [facility] [address], [place], [address], 06/24/2023 13:42:48 06/23/19 24 06/23/2023 COMPR EHENS DAVID METAB OLIC PANEL * globulin 1.9 g/dL 2.3-3. 4 low Not Available [facility] [address], [place], [address], 06/24/2023 13:42:48 06/23/19 24 06/23/2023 COMPR EHENS DAVID METAB OLIC PANEL * A/G ratio 1.6 g/dL 0.8-2. 0 Not Available [facility] [address], [place], [address], 06/24/2023 13:42:48 06/23/19 24 06/23/2023 COMPR EHENS DAVID METAB OLIC PANEL * alkaline phosphatase 66 U/L 30-120 Not Available [facility] [address], [place], [address], 06/24/2023 13:42:48 06/23/19 24 06/23/2023 COMPR EHENS DAVID METAB OLIC PANEL * ALT (SGPT) 15 U/L 13-40 Not Available [facility] [address], [place], [address], 06/24/2023 13:42:48 06/23/19 24 06/23/2023 COMPR EHENS DAVID METAB OLIC PANEL * AST (SGOT) 13 U/L 19-48 low Not Available [facility] [address], [place], [address], 06/24/2023 13:42:48 06/23/19 24 06/23/2023 COMPR EHENS DAVID METAB OLIC PANEL * bilirubin, total 0.69 mg/dL 0.20-1 .10 Not Available [facility] [address], [place], [address], 06/24/2023 13:42:48 06/23/19 24 06/23/2023 COMPR EHENS [...] [facility] [address], [place], [address], 06/24/2023 13:42:48 06/23/19 24 06/23/2023 FOLAT E* folate 13.8 NG/mL 8.6-58 .9 Not Available [facility] [address], [place], [address], 06/24/2023 13:42:48 06/23/19 24 06/23/2023 IRON* iron 89 ug/dL 65-175 Intox icate d Child : 280 - 2250 ug/dL Fatal ly Poiso benny Child : >1800 ug/dL Intox icate d Child : 280 - 2250 ug/dL Fatal ly Poiso benny Child : >1800 ug/dL Not Available [facility] [address], [place], [address], 06/24/2023 13:42:49 06/23/19 24 06/23/2023 MAGNE SIUM* magnesium 1.80 mg/dL 1.60-2 .40 Not Available [facility] [address], [place], [address], 06/24/2023 13:42:49 06/23/19 24 06/23/2023 VITAM IN B12* vitamin B12 257 pg/mL 250-11 00 Not Available [facility] [address], [place], [address], 06/24/2023 13:42:50 06/23/19 24 06/23/2023 COMPL ETE BLOOD COUNT WITH AUTO DIFF* WBC 7.19 10E3/ uL 4.50-1 1.50 Not Available [facility] [address], [place], [address], 06/24/2023 15:10:26 06/23/19 24 06/23/2023 COMPL ETE BLOOD COUNT WITH AUTO DIFF* RBC 4.55 10E6/ uL 4.60-6 .00 low Not Available [facility] [address], [place], [address], 06/24/2023 15:10:26 06/23/19 24 06/23/2023 COMPL ETE BLOOD COUNT WITH AUTO DIFF* HGB 13.8 g/dL 14.0-1 8.0 low Not Available [facility] [address], [place], [address], 06/24/2023 15:10:26 06/23/19 24 06/23/2023 COMPL ETE BLOOD COUNT WITH AUTO DIFF* HCT 40.5 % 40.0-5 4.0 Not Available [facility] [address], [place], [address], 06/24/2023 15:10:26 06/23/19 24 06/23/2023 COMPL ETE BLOOD COUNT WITH AUTO DIFF* MCV 89 fL 80-100 Not Available [facility] [address], [place], [address], 06/24/2023 15:10:26 06/23/19 24 06/23/2023 COMPL ETE BLOOD COUNT WITH AUTO DIFF* MCH 30 pg 26-32 Not Available [facility] [address], [place], [address], 06/24/2023 15:10:26 06/23/19 24 06/23/2023 COMPL ETE BLOOD COUNT WITH AUTO DIFF* MCHC 34.1 g/dL 32.0-3 6.0 Not Available [facility] [address], [place], [address], 06/24/2023 15:10:26 06/23/19 24 06/23/2023 COMPL ETE BLOOD COUNT WITH AUTO DIFF* RDW 13.2 % 11.5-1 4.5 Not Available [facility] [address], [place], [address], 06/24/2023 15:10:26 06/23/19 24 06/23/2023 COMPL ETE BLOOD COUNT WITH AUTO DIFF* plt 129 10E3/ uL 150-45 0 low Not Available [facility] [address], [place], [address], 06/24/2023 15:10:26 06/23/19 24 06/23/2023 COMPL ETE BLOOD COUNT WITH AUTO DIFF* neut% 71.7 % 50.0-7 0.0 high Not Available [facility] [address], [place], [address], 06/24/2023 15:10:26 06/23/19 24 06/23/2023 COMPL ETE BLOOD COUNT WITH AUTO DIFF* lymph% 19.1 % 18.0-4 2.0 Not Available [facility] [address], [place], [address], 06/24/2023 15:10:26 06/23/19 24 06/23/2023 COMPL ETE BLOOD COUNT WITH AUTO DIFF* mono% 5.7 % 2.0-11 .0 Not Available [facility] [address], [place], [address], 06/24/2023 15:10:26 06/23/19 24 06/23/2023 COMPL ETE BLOOD COUNT WITH AUTO DIFF* eos% 2.5 % 1.0-3. 0 Not Available [facility] [address], [place], [address], 06/24/2023 15:10:26 06/23/19 24 06/23/2023 COMPL ETE BLOOD COUNT WITH AUTO DIFF* baso% 0.6 % 0.0-2. 0 Not Available [facility] [address], [place], [address], 06/24/2023 15:10:26 06/23/19 24 06/23/2023 COMPL ETE BLOOD COUNT WITH AUTO DIFF* Ig% 0.4 % 0.0-0. 6 Not Available [facility] [address], [place], [address], 06/24/2023 15:10:26 06/23/19 24 06/23/2023 COMPL ETE BLOOD COUNT WITH AUTO DIFF* neut# 5.16 10E3/ uL 2.30-8 .10 Not Available [facility] [address], [place], [address], 06/24/2023 15:10:26 06/23/19 24 06/23/2023 COMPL ETE BLOOD COUNT WITH AUTO DIFF* lymph# 1.37 10E3/ uL 0.80-4 .80 Not Available [facility] [address], [place], [address], 06/24/2023 15:10:26 06/23/19 24 06/23/2023 COMPL ETE BLOOD COUNT WITH AUTO DIFF* mono# 0.41 10E3/ uL 0.45-1 .30 low Not Available [facility] [address], [place], [address], 06/24/2023 15:10:26 06/23/19 24 06/23/2023 COMPL ETE BLOOD COUNT WITH AUTO DIFF* eos# 0.18 10E3/ uL 0.00-0 .40 Not Available [facility] [address], [place], [address], 06/24/2023 15:10:26 06/23/19 24 06/23/2023 COMPL ETE BLOOD COUNT WITH AUTO DIFF* baso# 0.04 10E3/ uL 0.00-0 .10 Not Available [facility] [address], [place], [address], 06/24/2023 15:10:26 06/23/19 24 06/23/2023 COMPL ETE BLOOD COUNT WITH AUTO DIFF* Ig# 0.03 10E3/ uL 0.00-0 .09 Not Available [facility] [address], [place], [address], 06/24/2023 15:10:26 06/23/19 24 06/23/2023 FOLAT E* folate 13.8 NG/mL 8.6-58 .9 Not Available [facility] [address], [place], [address], 06/24/2023 15:10:27 10/06/19 24 10/06/2023 COMPL ETE BLOOD COUNT WITH AUTO DIFF* WBC 6.30 10E3/ uL 4.50-1 1.50 Not Available [facility] [address], [place], [address], 10/07/2023 17:44:26 10/06/19 24 10/06/2023 COMPL ETE BLOOD COUNT WITH AUTO DIFF* RBC 4.44 10E6/ uL 4.60-6 .00 low Not Available [facility] [address], [place], [address], 10/07/2023 17:44:26 10/06/19 24 10/06/2023 COMPL ETE BLOOD COUNT WITH AUTO DIFF* HGB 13.8 g/dL 14.0-1 8.0 low Not Available [facility] [address], [place], [address], 10/07/2023 17:44:26 10/06/19 24 10/06/2023 COMPL ETE BLOOD COUNT WITH AUTO DIFF* HCT 42.8 % 40.0-5 4.0 Not Available [facility] [address], [place], [address], 10/07/2023 17:44:26 10/06/19 24 10/06/2023 COMPL ETE BLOOD COUNT WITH AUTO DIFF* MCV 96 fL 80-100 Not Available [facility] [address], [place], [address], 10/07/2023 17:44:26 10/06/19 24 10/06/2023 COMPL ETE BLOOD COUNT WITH AUTO DIFF* MCH 31 pg 26-32 Not Available [facility] [address], [place], [address], 10/07/2023 17:44:26 10/06/19 24 10/06/2023 COMPL ETE BLOOD COUNT WITH AUTO DIFF* MCHC 32.2 g/dL 32.0-3 6.0 Not Available [facility] [address], [place], [address], 10/07/2023 17:44:26 10/06/19 24 10/06/2023 COMPL ETE BLOOD COUNT WITH AUTO DIFF* RDW 14.6 % 11.5-1 4.5 high Not Available [facility] [address], [place], [address], 10/07/2023 17:44:26 10/06/19 24 10/06/2023 COMPL ETE BLOOD COUNT WITH AUTO DIFF* plt 111 10E3/ uL 150-45 0 low Not Available [facility] [address], [place], [address], 10/07/2023 17:44:26 10/06/19 24 10/06/2023 COMPL ETE BLOOD COUNT WITH AUTO DIFF* neut% 59.4 % 50.0-7 0.0 Not Available [facility] [address], [place], [address], 10/07/2023 17:44:26 10/06/19 24 10/06/2023 COMPL ETE BLOOD COUNT WITH AUTO DIFF* lymph% 27.3 % 18.0-4 2.0 Not Available [facility] [address], [place], [address], 10/07/2023 17:44:26 10/06/19 24 10/06/2023 COMPL ETE BLOOD COUNT WITH AUTO DIFF* mono% 8.1 % 2.0-11 .0 Not Available [facility] [address], [place], [address], 10/07/2023 17:44:26 10/06/19 24 10/06/2023 COMPL ETE BLOOD COUNT WITH AUTO DIFF* eos% 4.4 % 1.0-3. 0 high Not Available [facility] [address], [place], [address], 10/07/2023 17:44:26 10/06/19 24 10/06/2023 COMPL ETE BLOOD COUNT WITH AUTO DIFF* baso% 0.6 % 0.0-2. 0 Not Available [facility] [address], [place], [address], 10/07/2023 17:44:26 10/06/19 24 10/06/2023 COMPL ETE BLOOD COUNT WITH AUTO DIFF* Ig% 0.2 % 0.0-0. 6 Not Available [employer] [address], [place], [address], 10/07/2023 17:44:26 10/06/19 24 10/06/2023 COMPL ETE BLOOD COUNT WITH AUTO DIFF* neut# 3.74 10E3/ uL 2.30-8 .10 Not Available [employer] [address], [place], [address], 10/07/2023 17:44:26 10/06/19 24 10/06/2023 COMPL ETE BLOOD COUNT WITH AUTO DIFF* lymph# 1.72 10E3/ uL 0.80-4 .80 Not Available [employer] [address], [place], [address], 10/07/2023 17:44:26 10/06/19 24 10/06/2023 COMPL ETE BLOOD COUNT WITH AUTO DIFF* mono# 0.51 10E3/ uL 0.45-1 .30 Not Available [employer] [address], [place], [address], 10/07/2023 17:44:26 10/06/19 24 10/06/2023 COMPL ETE BLOOD COUNT WITH AUTO DIFF* eos# 0.28 10E3/ uL 0.00-0 .40 Not Available [employer] [address], [place], [address], 10/07/2023 17:44:26 10/06/19 24 10/06/2023 COMPL ETE BLOOD COUNT WITH AUTO DIFF* baso# 0.04 10E3/ uL 0.00-0 .10 Not Available [employer] [address], [place], [address], 10/07/2023 17:44:26 10/06/19 24 10/06/2023 COMPL ETE BLOOD COUNT WITH AUTO DIFF* Ig# 0.01 10E3/ uL 0.00-0 .09 Not Available [employer] [address], [place], [address], 10/07/2023 17:44:26 10/06/19 24 10/06/2023 COMPL ETE BLOOD COUNT WITH AUTO DIFF* reflex Smear Review Not Available [facility] [address], [place], [address], 10/07/2023 17:44:26 10/06/19 24 10/06/2023 COMPR EHENS [...] Available [employer] [address], [place], [address], 10/07/2023 17:44:26 10/06/19 24 10/06/2023 COMPR EHENS DAVID METAB OLIC PANEL * BUN 19 mg/dL 8-23 Not Available [facility] [address], [place], [address], 10/07/2023 17:44:26 10/06/19 24 10/06/2023 COMPR EHENS DAVID METAB OLIC PANEL * calcium 8.2 mg/dL 8.8-10 .2 low Not Available [employer] [address], [place], [address], 10/07/2023 17:44:26 10/06/19 24 10/06/2023 COMPR EHENS DAVID METAB OLIC PANEL * creatinine 1.05 mg/dL 0.80-1 .30 Not Available [facility] [address], [place], [address], 10/07/2023 17:44:26 10/06/19 24 10/06/2023 COMPR EHENS DAVID METAB OLIC PANEL * sodium 142 mmol/ L 136-14 5 Not Available [facility] [address], [place], [address], 10/07/2023 17:44:26 10/06/19 24 10/06/2023 COMPR EHENS DAVID METAB OLIC PANEL * potassium 4.2 mmol/ L 3.5-5. 1 Not Available [facility] [address], [place], [address], 10/07/2023 17:44:26 10/06/19 24 10/06/2023 COMPR EHENS DAVID METAB OLIC PANEL * chloride 108 mEq/L 98-107 high Not Available [facility] [address], [place], [address], 10/07/2023 17:44:26 10/06/19 24 10/06/2023 COMPR EHENS DAVID METAB OLIC PANEL * carbon dioxide 26 mmol/ L 23-30 Not Available [facility] [address], [place], [address], 10/07/2023 17:44:26 10/06/19 24 10/06/2023 COMPR EHENS DAVID METAB OLIC PANEL * total protein 4.9 g/dL 6.2-8. 1 low Not Available [employer] [address], [place], [address], 10/07/2023 17:44:26 10/06/19 24 10/06/2023 COMPR EHENS DAVID METAB OLIC PANEL * albumin 2.9 g/dL 3.2-4. 6 low Not Available [facility] [address], [place], [address], 10/07/2023 17:44:26 10/06/19 24 10/06/2023 COMPR EHENS DAVID METAB OLIC PANEL * globulin 2.0 g/dL 2.3-3. 4 low Not Available [facility] [address], [place], [address], 10/07/2023 17:44:26 10/06/19 24 10/06/2023 COMPR EHENS DAVID METAB OLIC PANEL * A/G ratio 1.5 g/dL 0.8-2. 0 Not Available [facility] [address], [place], [address], 10/07/2023 17:44:26 10/06/19 24 10/06/2023 COMPR EHENS DAVID METAB OLIC PANEL * alkaline phosphatase 73 U/L 30-120 Not Available [facility] [address], [place], [address], 10/07/2023 17:44:26 10/06/19 24 10/06/2023 COMPR EHENS DAVID METAB OLIC PANEL * ALT (SGPT) 13 U/L 13-40 Not Available [facility] [address], [place], [address], 10/07/2023 17:44:26 10/06/19 24 10/06/2023 COMPR EHENS DAVID METAB OLIC PANEL * AST (SGOT) 12 U/L 19-48 low Not Available [facility] [address], [place], [address], 10/07/2023 17:44:26 10/06/19 24 10/06/2023 COMPR EHENS DAVID METAB OLIC PANEL * bilirubin, total 0.97 mg/dL 0.20-1 .10 Not Available [facility] [address], [place], [address], 10/07/2023 17:44:26 10/06/19 24 10/06/2023 COMPR EHENS [...] Not Available [facility] [address], [place], [address], 10/07/2023 17:44:26 06/15/19 24 06/15/2023 XR, hip + pelvi s, unila teral , 4 or more view No observ ation record ed. [email or web address] [facility] [address], [place], [address], 07/13/2023 07:14:48 Result Notes None recorded. Problems Name Problem SNOMED Code Status Onset Date Resolution Date Notes Provider Name and Address Organization Details Recorded Time Essential hypertensio n 35603716 Active 2022 YANIV Arias, PMHNP-BC [address] [place], [address], [place] - [facility] 18:14:22 Neuropathy 667145399 Active 2022 YANIV Arias, PMHNP-BC [address], [place], [address], [place] [facility] 4 18:14:22 Obstructive sleep apnea of adult 7363667658290 Active 2023 FARHEEN AriasP-BC, PMHNP-BC [address], [place], [address], [place] [facility] 4 07:25:43 Osteoarthri tis of multiple joints 850470533 Active 2023 Cristy Dawkins PEDIATRIC CARE COORDINATOR-BC, PMHNP-BC [address], [place], [address], [facility] - [facility] 4 07:06:33 Low back pain 887551048 Active 2023 FARHEEN AriasP-BC, PMHNP-BC [address], [place], [address], [facility] - [facility] 4 07:06:33 Problem Notes None recorded. Procedures Surgical History None recorded. Imaging Results Imaging Date Name Status LastModified by Organiz ation Details LastModified Time 06/15/2023 XR, hip + pelvis, unilateral , 4 or more view completed [email or web address] [facility] [address], [place], [address], 07/13/2023 07:14:48 Procedure Notes None recorded. Medical Equipment None Reported. Allergies Allergen ID Allergen Name Allergen Category Reaction Reaction Severity Criticality Documentation Date Start Date Code Code System Note Provider Name and Address Organization Details Recorded Time 6753 amlodipin e medicatio n Not available Not available Not available 02/22/2023 88273 RxNorm Shamyra Tank null, [facility] 3 16:46:55 6754 hydrochlo rothiazid e medicatio n Not available Not available Not available 02/22/2023 5487 RxNorm Shamyra Tank null, [place] - [facility] 3 16:47:12 Medications Name Sig [...] mm[Hg] 68 mm[Hg] Sandoval SANDOVAL - [facility] 3 15:23:32 Date Recorded Body height Body mass index (BMI) Body weight Provider Name and Address Organization Details Last Updated DateTime 02/21/2023 180.34 cm 26.4 kg/m2 29676.96 g Crystal L. Stone, PEDIATRIC CARE COORDINATOR-BC, PMHNP-BC [address] [place], [address], [facility] 02/22/2023 16:50:28 Date Recorded Body [...] [degF] 0 140 mm[Hg] 78 mm[Hg] Sandoval [facility] 3 12:12:20 Date Recorded Body [...] [degF] 0 148 mm[Hg] 80 mm[Hg] Sandoval [facility] 3 11:09:11 Date Recorded Body height Heart [...] 0 130 mm[Hg] 86 mm[Hg] Sandoval Clarke [facility] 4 12:59:18 Date Recorded Body [...] [degF] 0 152 mm[Hg] 82 mm[Hg] Sandoval [place] LORI [facility] 4 14:55:21 Date Recorded Body [...] 0 144 mm[Hg] 82 mm[Hg] Sandoval [facility] 4 09:05:20 Social History Question Answer Notes LastModified by Organizat ion Details LastModified Time Tobacco Smoking Status [facility]/2023 16:48:48 Do You Have An Advance Directive? Yes [email or web address] Information not available 02/22/2023 What Is Your Level Of Alcohol Consumption? None [email or web address] Information not available 02/22/2023 Are You Blind Or Do You Have Difficulty Seeing? No Information not available 02/22/2023 Is Blood Transfusion Acceptable In An Emergency? Yes [email or web address] Information not available 02/22/2023 What Is Your Level Of Caffeine Consumption? Occasional [email or web address] Information not available 02/22/2023 What Type Of Furnace Repairer Do You Use? None [email or web address] Information not available 02/22/2023 What Is Your Code Status? DNR Information not available 02/03/2023 Are You Currently Employed? No Information not available 02/22/2023 Are You Deaf Or Do You Have Serious Difficulty Hearing? No [email or web address] Information not available 02/22/2023 What Type Of Diet Are You Following? REGULAR [email or web address] Information not available 02/22/2023 What Is The Highest Grade Or Level Of School You Have Completed Or The Highest Degree You Have Received? [id number] [email or web address] Information not available 02/22/2023 Have There Been Any Changes To Your Family Or Social Situation? No [email or web address] Information not available 02/22/2023 When Did You Quit Smoking? 1-5yearssincel adia carreon Information not available 02/22/2023 Are There Any Guns Present In Your Home? No [email or web address] Information not available 02/22/2023 Do You Have A Medical Power Of Lobster Man? Yes Miguel Galaviz (son-in-la w) Information not available 02/03/2023 What Was The Date Of Your Most Recent Tobacco Screening? 02/21/2023 [email or web address] Information not available 02/22/2023 How Many Children Do You Have? 0 [email or web address] Information not available 02/22/2023 What Is Your Current Pack Years? 10packyears [email or web address] Information not available 02/22/2023 Do You Have Any Pets? No [email or web address] Information not available 02/22/2023 What Is Your Relationship Status? [email or web address] Information not available 02/22/2023 Do You Use Your Seat Belt Or Car Seat Routinely? Yes [email or web address] Information not available 02/22/2023 Are You Sexually Active? No [email or web address] Information not available 02/22/2023 Do You Have Smoke And Carbon Monoxide Detectors In Your Home? Yes [email or web address] Information not available 02/22/2023 At What Age Did You Start Smoking Tobacco? 20 Information not available 02/22/2023 Are You Passively Exposed To Smoke? No Information not available 02/22/2023 Do You Participate In Social Media? No [email or web address] Information not available 02/22/2023 Do You Feel Stressed (tense, Restless, Nervous, Or Anxious, Or Unable To Sleep At Night)? [email or web address] Information not available 02/22/2023 Do You Use Any Illicit Or Recreational Drugs? No [email or web address] Information not available 02/22/2023 Do You Use Sunscreen Routinely? No [email or web address] Information not available 02/22/2023 How Many Years Have You Smoked Tobacco? 2 Information not available 02/22/2023 Are You Currently In School? No [email or web address] Information not available 02/22/2023 Do You Have Any Dietary Restrictions? No [email or web address] Information not available 02/22/2023 Do You Or Have You Ever Used Any Other Forms Of Tobacco Or Nicotine? No [email or web address] Information not available 02/22/2023 Sex: Male Functional Status Question Answer Note LastModified by Organizat ion Details LastModified Time Do you have difficulty walking or climbing stairs? Yes [email or web address] Information not available 02/22/2023 Do you have transportation difficulties? No [email or web address] Information not available 02/22/2023 Are you able to walk? YESASSIST Information not available 02/22/2023 Do you have difficulty doing errands alone? Yes [email or web address] Information not available 02/22/2023 Are you able to care for yourself? Yes [email or web address] Information not available 02/22/2023 Do you have difficulty dressing or bathing? No [email or web address] Information not available 02/22/2023 What is your exercise level? None Information not available 02/22/2023 Mental Status Question Answer Note LastModified by Organization D etails LastModified Time Do you have difficulty concentrating, remembering or making decisions? No [email or web address] Information no t available 02/22/2023 Family History Relationship Description Onset Age of this Age Resolved Age Notes LastModified by Organization Details LastModified Time Father Essential hypertension [email or web address] Not available 16:55:25 Medical History Condition Response Hematological Diseases / Disorders Y Genitourinary Diseases / Disorders () Y Gastrointestinal Diseases / Disorders Y Neuropathy Y Neurological Diseases / Disorders Y Obstructive Sleep Apnea Y Hypertension Y Immunizations Vaccine Type Date Status Note Provider Nam e and Address Organization Details Recorded Time Influenza, adjuvanted, quadrivalent, PF 03/10/2023 completed Anamaria Copeland [facility] 03/10/2023 16:06:40 Past Encounters Encounter ID Performer Location Encounter Start Date Encounter Closed Date Diagnosis/Indication Diagnosis SNOMED-CT Code Diagnosis ICD10 Code Diagnosis Note [id number] Cristy ReglaYANIV Marin, PMHNP-YULIANA [facility] [address] [place] [address] 02/21/2023 08:12:18 02/22/2023 19:33:44 Thoracic back pain 905084202 M54.6 Advance care planning 71 3256416 Z71.89 Essential hypertension 43828703 I10 taking medication . labs to eval levels. Neuropathy 600781574 G62 .9 safety when ambulating .numbness. Denies pain. 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 Low back pain 075068040 M54.50 Pain of le ft hip joint 2499437121 88472 M25.552 Essential hypertension 42927111 I10 taking medication . labs to eval levels. Anemia 110886910 D64.9 labs to eval levels. [id number] Cristy Dawkins PEDIATRIC CARE COORDINATOR-, PMHNP- [facility] [address] [place] [address] 07/12/2023 13:37:52 07/14/2023 14:17:46 Low back pain 177647211 M54.50 Essential hypertension 41206599 I10 Osteoarthr itis of multiple joints 472054464 M15.9 Dressing-g rooming self-care deficit 747332453 Z74.1 Obstructiv e sleep apnea of adult 7834030792 103 G47.33 [id number] Cristy Dawkins [facility]-, PMHNP-[facility] [address] [place] [address] 08/03/2023 08:40:09 08/04/2023 08:52:46 Low back pain 175023097 M54.50 Osteoarthr itis of multiple joints 116667487 M15.9 Neuropathy 621424014 G62 .9 Health Concerns Section Related Observation LastModified by Organization Detai ls LastModified Time None Recorded Concern Status LastModified by Organization Details LastModified Time None Recorded Advance Directives Directive Y: Payers Encounter Date Sequence Insurance Name Policy Number Policy Greco Covered Member ID Greco Member ID Guarantor Name 02/21/2023 1 [employer] - GOLD PLUS (MEDICARE REPLACEMENT HMO) Crow Smith III [id number] Crow Smith 03/21/2023 1 [employer] - GOLD PLUS (MEDICARE REPLACEMENT HMO) Crow Smith III [id number] Crow Smith 06/14/2023 1 [employer] - GOLD PLUS (MEDICARE REPLACEMENT HMO) Crow Smith III [id number] Crwo Smith 07/12/2023 1 [employer] - GOLD PLUS (MEDICARE REPLACEMENT HMO) Crow Smith III [id number] Crow Smith 08/03/2023 1 [employer] - GOLD PLUS (MEDICARE REPLACEMENT HMO) Crow Smith III [id number] Crow Smith Notes Date Note Type Note Provider Name and Address Organization Details Recorded Time 02/21/2023 text/html Back PainReporte d bypatient.Location:[facility] Severity:moderate (5-7) Associated Symptoms:no fever; no weak [...] weakness in BLE. YANIV Arias, PMNIEVES-YULIANA [address] [facility] 02/22/2023 17:35:34 03/21/2023 text/html Back PainReporte d bypatient.Location:[facility] Severity:moderate (5-7) Alleviating Factors:NSAIDS Associated Symptoms:no fever; [...] routine labs. YANIV Arias, PMNIEVES-BC [address], [place], [address] [place] [address], [facility] 03/21/2023 12:42:48 [...] dizziness, CP, SOB, or palpitations. YANIV Arias, [facility] [address] [place], [address], [facility] 06/14/2023 18:22:36 07/12/2023 text/html Joint & [...] dizziness, CP, SOB, or palpitations. YANIV Arias, [facility]- [address] [place], [address], [facility] 07/13/2023 07:30:33 [...] difficulties ambulating. Increasing fall risk. Cristy Dawkins, PEDIATRIC CARE COORDINATOR-BC, PMHNP-BC [address] [place], [address], [facility] 08/04/2023 07:07:27
--- OUTSIDE RECORDS SUMMARY | 2024-09-28 15:20 | XMS_ITS | Encounter Summary ---
Author Organization [facility] Address [address] [place] [address] Care Team Providers Care Elocution Teacher Name Role Phone Jeremy Carreon MD Primary Care Provider [phone] Encounter Details Date Type Department Care Team (Latest Contact Info) Description 03/17/2005 Outpatient Historical [facility] SINAI Boyd, MD [place] [address] [place] [address] HYPERTENSION NOS (Primary Dx) Social History Tobacco Use Types Packs/Day Years Used Date Smoking Tobacco: Never Assessed Sex and Gender Information Value Date Recorded Sex Assigned at Not on file Legal Sex Male 3:20 AM HEALTH AND WELLNESS DIRECTOR Gender Identity Not on file Sexual [...] Negative INTERFACE SYSTEM 03/17/2005 9:46 AM CDT Aristeo Boyd MD URINE ORDERABLES Final Result Performing Organization Address City/[facility] Co [place] Phone Number INTERFACE SYSTEM Refer to clinic/hospital [...] K/uL INTERFACE SYSTEM 03/17/2005 9:40 AM CDT Aristeo Boyd MD HEMATOLOGY ORDERABLES Final Resu lt INTERFACE SYSTEM Refer to clinic/hospital department * [...] Boyd MD HEMATOLOGY ORDERABLES Final Resu lt INTERFACE SYSTEM Refer to clinic/hospital department * TSH (03/17/2005 9:40 AM CDT) TSH 1.96 0.27 - 4.20 uU/mL INTERFACE SYSTEM 03/17/2005 9:40 AM CDT Aristeo Boyd MD CHEMISTRY ORDERABLES Final Resul t Performing Organization Address City/[facility]/ZIP Co de Phone Number INTERFACE SYSTEM Refer to clinic/hospital department * PSA (03/17/2005 9:40 AM CDT) PSA 1.5 0.0 - 4.0 ng/mL INTERFACE SYSTEM Comment:Performed on [employer] E170 System 03/17/2005 9:40 AM [...] 129 High >=130 03/17/2005 9:40 AM CDT us Aristeo Boyd [...] Primary documented in this encounter Care Teams Elocution Teacher Relationship Specialty Start Date End Date Jeremy Carreon MD [address] [place] [phone] PCP - General Internal Medicine 05/17/19 02/14/23 documented as of this encounter
--- OUTSIDE RECORDS SUMMARY | 2024-09-28 15:20 | XMS_ITS | Encounter Summary ---
Author Organization [facility] Address [address] [place] [address] Care Team Providers Care Student Accounts Manager Name Role Phone Jeremy Carreon MD Primary Care Provider [phone] Encounter Details Date Type Department Care Team (Latest Contact Info) Description 07/08/2006 Outpatient Historical HIS [facility] SINAI Boyd, MD [place] [address] [place] [address] Routine General Medical Examination at a Health Care Facility (Primary Dx) Social History Tobacco Use Types Packs/Day Years Used Date Smoking Tobacco: Never Assessed Sex and Gender Information Value Date Recorded Sex Assigned at Not on file Legal Sex Male 3:20 AM TICKET BROKER Gender Identity Not on file Sexual Orientation Not on file documented as of this encounter Plan of Treatment Not on file documented as of this encounter Procedures Procedure Name Priority Date/Time Associated Diagnosis Comments URINALYSIS WITH MICROSCOPIC Routine 07/08/2006 10:56 AM TICKET BROKER TSH WITH REFLEX FT4 AND FT3 Routine 07/08/2006 10:53 AM TICKET BROKER CBC WITH DIFFERENTIAL Routine 07/08/2006 10:53 AM TICKET BROKER CBC WITH DIFFERENTIAL Routine 07/08/2006 10:53 AM TICKET BROKER PSA Routine 07/08/2006 10:53 AM TICKET BROKER LIPID PANEL Routine 07/08/2006 10:53 AM TICKET BROKER COMPREHENSIVE METABOLIC PANEL Routine 07/08/2006 10:53 AM TICKET BROKER documented in this encounter Results * URINALYSIS WITH MICROSCOPIC (07/08/2006 10:56 AM TICKET BROKER) COLOR UA Yellow INTERFACE SYSTEM CLARITY UA [...] /HPF INTERFACE SYSTEM 07/08/2006 10:5 6 AM TICKET BROKER Aristeo Boyd MD URINE ORDERABLES Edited Performing Organization Address City/[facility]/[place]UST de Phone Number INTERFACE SYSTEM Refer to clinic/hospital department * CBC WITH DIFFERENTIAL (07/08/2006 10:53 AM TICKET BROKER) NEUTROPHILS 63 45 - 70 % INTERFAC [...] K/uL INTERFACE SYSTEM 07/08/2006 10:5 3 AM TICKET BROKER Aristeo Boyd MD HEMATOLOGY ORDERABLES Edited Performing Organization Address City/[facility]/ZIP Co de Phone Number INTERFACE SYSTEM Refer to clinic/hospital department * (ABNORMAL) CBC WITH DIFFERENTIAL (07/08/2006 10:53 AM TICKET BROKER) WBC 10.0(H) 4.0 - 9.8 K/uL INTERFACE [...] fL INTERFACE SYSTEM 07/08/2006 10:5 3 AM TICKET BROKER Aristeo Boyd MD HEMATOLOGY ORDERABLES Edited Performing Organization Address City/[facility] Co de Phone Number INTERFACE SYSTEM Refer to clinic/hospital department * TSH WITH REFLEX FT4 AND FT3 (07/08/2006 10:53 AM TICKET BROKER) TSH 2.14 0.27 - 4.20 uU/mL INTERFACE SYSTEM 07/08/2006 10:5 3 AM TICKET BROKER Aristeo Boyd MD CHEMISTRY ORDERABLES Edited Performing Organization Address City/[facility] Co de Phone Number INTERFACE SYSTEM Refer to clinic/hospital department * PSA (07/08/2006 10:53 AM TICKET BROKER) PSA 1.9 0.0 - 4.0 ng/mL INTERFACE SYSTEM Comment:Performed on [employer] E170 System 07/08/2006 10:5 3 AM TICKET BROKER Aristeo Boyd MD CHEMISTRY ORDERABLES Edited Performing Organization Address City/[facility] Co de Phone Number INTERFACE SYSTEM Refer to clinic/hospital department * (ABNORMAL) LIPID PANEL (07/08/2006 10:53 AM TICKET BROKER) CHOLESTEROL 204(H) 100 - 199 mg/dL INTERFACE SYSTEM TRIGLYCERIDE 225(H) 10 - 149 mg/dL INTERFACE SYSTEM HDL 48 40 - 59 mg/dL INTERFACE SYSTEM CHOL/HDL RATIO 4.3 2.0 - 5.0 INTER FACE SYSTEM LDL CALCULATED 111(H) <=99 mg/dL INTERFACE SYSTEM LIPID PANEL COMMENT See Below INTERFACE SYSTEM Comment: The adult ATP and pediatric NCEP classifications for lipids are available on the [facility] Intranet at: [email or web address] Select: Lab Policies and Procedures Select: Reference Ranges - Lipids 07/08/2006 10:5 3 AM TICKET BROKER Aristeo Boyd MD CHEMISTRY ORDERABLES Edited INTERFACE SYSTEM Refer to clinic/hospital department * COMPREHENSIVE METABOLIC PANEL (07/08/2006 10:53 AM TICKET BROKER) GLUCOSE 90 65 - 99 mg/dL INTERFACE [...] and non- Americans is available on the [facility] Intranet at: [email or web address] Select: Lab Policies and Procedures Select: Reference Ranges - GFR 07/08/2006 10:5 3 AM TICKET BROKER Aristeo Boyd MD CHEMISTRY ORDERABLES Edited INTERFACE SYSTEM Refer to clinic/hospital department documented in this encounter Visit Diagnoses Diagnosis Routine general medical examination at a health care facility- Primary documented in this encounter Care Teams Student Accounts Manager Relationship Specialty Start Date End Date Jeremy Carreon MD [address] [place] [phone] PCP - General Internal Medicine 05/17/19 02/14/23 documented as of this encounter
--- NOTE | 2024-09-28 15:39 | ECG_ITS ---
Test Date: 2024-09-28 16:23:23 Measurements Intervals [place] Rate: 47 P: 3 UT: 184 QRS: -32 QRSD: 88 T: 10 QT: 437 QTc: 390 Interpretive Statements SINUS BRADYCARDIA LEFT AXIS DEVIATION LOW QRS VOLTAGE IN PRECORDIAL LEADS VOLTAGE CRITERI FOR LVH POSSIBLE ANTERIOR MYOCARDIAL INFARCTION , PROBABLY OLD CONSIDER INFERIOR INFARCT, AGE INDETERMINATE BASELINE ARTIFACT- I, II, III, AVR, AVL, AVF, V1-V6 ABNORMAL ECG Compared to ECG 08/14/2024 06:39:04 HEART RATE HAS DECREASED Electronically Signed On 09-28-2024 18:57:26 CDT by Lopez Barcenas D.O.
--- NOTE | 2024-09-28 15:42 | ED_ITS ---
HPI - Fall General Chief Complaint: Fall <Salenaaugusto Ludwig APRN - Last Filed: 09/28/24 15:48> Stated Complaint: fall <Salenaaugusto Ludwig APRN - Last Filed: 09/28/24 15:48> Time Seen by Provider: 09/28/24 15:53 <Salena Ludwig APRN - Last Filed: 09/28/24 15:48> Focused HPI: Patient is an 84-year-old male who presents to the ER after sustaining a fall prior to arrival. He reports he was near his closet and fell into some suitcases and clothes hangers. Patient's chart indicates he has a history of dementia, high blood pressure, and CHF. He endorses a skin tear to his left forearm and believes he bumped the right side of his head. It is unclear whether or not patient was using a walker when he was ambulating. Per EMS, the staff is concerned about increased swelling in patient's lower extremities. He denies any spinal tenderness, abdominal pain, or shortness of breath. GENERAL: Well-appearing, well-nourished, and in no acute distress. HEAD: Normocephalic, atraumatic. CHEST: Clear to auscultation. ?No respiratory distress. HEART: Regular rate and rhythm.? NEURO: ?Alert and oriented x3. Patient screened in triage and initial orders placed.? ?Additional care and disposition to be based upon?diagnostic testing and treatment. <Salena Ludwig APRN - Last Filed: 09/28/24 15:48> History of Present Illness HPI Narrative: I agree with the above HPI <Duncan Robles MD - Last Filed: 09/29/24 07:24> Related Data Home Medications: Home Medications ?Medication ?Instructions ?Recorded ?Confirmed ?Last Taken ?Type cholecalciferol (vitamin D3) 50 50 mcg PO DAILY 05/23/20 09/28/24 09/27/24 20:00 History mcg (2,000 unit) capsule zinc 50 mg tablet 50 mg PO DAILY 05/23/20 09/28/24 09/27/24 20:00 History ascorbic acid (vitamin C) 500 mg 500 mg PO DAILY 08/14/24 09/28/24 09/27/24 20:00 History tablet (Vitamin C) donepezil 5 mg tablet 5 mg PO HS 08/14/24 09/28/24 09/27/24 18:00 History fluoxetine 10 mg capsule 10 mg PO QAM 08/14/24 09/28/24 09/28/24 08:00 History irbesartan 300 mg tablet 300 mg PO DAILY 08/14/24 09/28/24 09/28/24 08:00 History naproxen sodium 220 mg tablet 220 mg PO DAILY 08/14/24 09/28/24 09/28/24 08:00 History polyethylene glycol 3350 17 17 g PO .Q daily PRN constipation 08/14/24 09/28/24 Unknown History gram/dose oral powder primidone 50 mg tablet 12.5 mg PO HS 08/14/24 09/28/24 09/27/24 18:00 History furosemide 20 mg tablet 20 mg PO DAILY 09/28/24 09/28/24 09/28/24 08:00 History potassium chloride 20 mEq 20 meq PO DAILY 09/28/24 09/28/24 09/28/24 08:00 History tablet,extended release(part/cryst) sulfamethoxazole 800 1 tablet PO BID 09/28/24 09/28/24 09/27/24 16:00 History mg-trimethoprim 160 mg tablet <Salena Ludwig APRN - Last Filed: 09/28/24 15:48> Allergies/Adverse Reactions: Allergies Allergy/AdvReac Type Severity Reaction Status Date / Time amlodipine Allergy Intermediate HIVES, Verified 08/14/24 10:49 ITCHING hydrochlorothiazide Allergy Unknown RASH & Verified 08/14/24 10:49 ITCHING valsartan Allergy Unknown Hives Verified 08/14/24 10:49 <Salena Ludwig APRN - Last Filed: 09/28/24 15:48> Review of Systems 2 Review of Systems: All systems reviewed & are unremarkable except as noted in HPI and below <Duncan Robles MD - Last Filed: 09/29/24 07:24> [facility] Past Medical History Medical History: Medical History (Updated 09/28/24 @ 23:09 by Candi Gracia, ) Hypovitaminosis D Basal cell carcinoma of skin Chronic back pain Obstructive sleep apnea CPAP of 8 recommended on polysomnogram 2020 Neuropathy Dyslipidemia Left ventricular diastolic dysfunction, NYHA class 1 Grade 1 diastolic dysfunction with EF of 66 by% noted on echocardiogram from 2019 Essential hypertension <Salena Ludwig APRN - Last Filed: 09/28/24 15:48> Surgical History Surgical History: Surgical History (Updated 09/28/24 @ 22:58 by Candi Gracia DO) History of colonoscopy with polypectomy Multiple events with the most recent May 2017 History of hip surgery (08/14/24) Percutaneous pinning right hip fracture by Dr. 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 He reports that he has been since 2020. He has lived in [facility] since 2020. He reports that he briefly smoked when he was young but according to a prior H&P from 2010 he was smoking half a pack of cigarettes per day at that time. He used to occasionally drink alcohol in moderation but had not done so in many years. He denies history of illicit substance use. Code status: DNR/DNI with IDPA form on chart Healthcare POA: Miguel Boggs (vanessa) who lives in [place]. Smoking packs per day: 0.5 Smoking cigarettes per day: 10.0 Years smoked: 2 Smoking pack-years: 1.00 Smoking status: Former smoker Tobacco type: cigarettes Second hand tobacco smoke exposure: No Smoking end date: 06/06/1960 Alcohol intake: current Drinks per week: 1 Alcohol use details: a glass a wine Substance use: never Substance use type: does not use Do You Feel Safe in your Home?: No Lack of Transportation: No Lack of Food: Never True Current Housing: I Have Housing Concerned About Future Housing: No Difficulty Paying Gas/Electric Bills: No Difficulty Paying for Meds: No Currently Unemployed: No Education: Master's Degree or Higher Difficulty w/ Childcare or Family Care: No Living arrangements: assisted living Additional living arrangements comments: . Lives at [facility]. Occupation/Education: retired Additional occupation/education comments: [employer] Spiritual care concerns: No Agree to blood products: Yes <Salena Ludwig APRN - Last Filed: 09/28/24 15:48> Exam 2 Narrative: APPEARANCE: Ill-appearing HEAD: normocephalic, atraumatic. EYES: Possible viral conjunctivitis NOSE: Normal no drainage EARS:TMS clear with good light reflex. THROAT: Pharynx clear, no exudate. NECK: Supple. No adenopathy, no masses. RESPIRATORY: Airway patent, respirations nonlabored. Clear to auscultation bilaterally, no rales, rhonchi, wheezing. CARDIOVASCULAR: Regular rate and rhythm without murmurs rubs or gallops. ABDOMINAL: Soft, nontender, nondistended, normal bowel sounds MUSCULOSKELETAL: Moves all extremities. Strength/ROM intact, No edema, No calf tenderness. NEURO: Alert. Grossly intact SKIN: Warm, dry. Normal Color <Duncan Robles MD - Last Filed: 09/29/24 07:24> Course Vital Signs Vital signs: Vital Signs Temperature 97.6 F 09/28/24 15:30 Pulse Rate 51 L 09/28/24 15:30 Respiratory Rate 16 09/28/24 15:30 Blood Pressure 115/70 09/28/24 15:30 Pulse Oximetry 99 09/28/24 15:30 Temperature 97.0 F L 09/29/24 06:00 Pulse Rate 70 09/29/24 06:00 Respiratory Rate 18 09/29/24 06:00 Blood Pressure 143/73 H 09/29/24 06:00 Pulse Oximetry 100 09/29/24 06:00 Oxygen Delivery Room Air 09/28/24 18:40 <Salena Ludwig APRN - Last Filed: 09/28/24 15:48> Vital Signs Temperature 97.6 F 09/28/24 15:30 Pulse Rate 51 L 09/28/24 15:30 Respiratory Rate 16 09/28/24 15:30 Blood Pressure 115/70 09/28/24 15:30 Pulse Oximetry 99 09/28/24 15:30 Temperature 97.0 F L 09/29/24 06:00 Pulse Rate 70 09/29/24 06:00 Respiratory Rate 18 09/29/24 06:00 Blood Pressure 143/73 H 09/29/24 06:00 Pulse Oximetry 100 09/29/24 06:00 Oxygen Delivery Room Air 09/28/24 18:40 <Duncan Robles MD - Last Filed: 09/29/24 07:24> MDM - Fall MDM Narrative Medical decision making narrative: 84-year-old male with history of dementia presents emergency department for evaluation for increased generalized weakness. Patient is currently afebrile with no leukocytosis and hemoglobin 12.9. Patient is very tired appearing emergency department but states he does feel that he is able to ambulate at his baseline. Patient's pro BNP is only mildly elevated at 340 to and UA was significant for a urinary tract infection with leukocyte esterase, high white blood cells and high bacteria. Patient was started on IV Rocephin for urinary tract infection. Patient had negative imaging of head and cervical spine. Chest x-ray showed no acute cardiopulmonary abnormality. Attempted to ambulate the patient and he was unable to successfully ambulate at his supposed baseline. Case discussed with hospitalist patient was accepted for admission. < Duncan Robles MD - Last Filed: 09/29/24 07:24> Differential Diagnosis Differential diagnosis: Likely syncope and other (Subdural hematoma, subarachnoid hemorrhage, UTI, pneumonia, COVID, RSV, influenza) <Duncan Robles MD - Last Filed: 09/29/24 07:24> Lab Data Attestation: I reviewed the patient's lab results. <Duncan Robles MD - Last Filed: 09/29/24 07:24> Result diagrams: 09/28/24 16:26 09/28/24 16:26 <Salena Ludwig APRN - Last Filed: 09/28/24 15:48> Labs: Lab Results 09/28/24 09/28/24 Range/Units 16:26 17:36 WBC 6.5 (4.5-10.0) K/mm3 RBC 4.43 L (4.6-6.20) M/mm3 Hgb 12.9 L (14.0-18.0) g/dL Hct 41.3 L (42.0-52.0) % MCV 93.2 (80-100) fl MCH 29.1 (26-34) pg MCHC 31.2 L (32-36) g/dl RDW 13.9 (11.5-14.5) % Plt Count 136 L (150-375) k/mm3 MPV 10.1 (7.4-10.4) fl Immature Gran % (Auto) 0.3 (0-0.5) % Neut % (Auto) 64.7 (45.5-73.1) % Lymph % (Auto) 20.0 (18.3-44.2) % Pacific % (Auto) 8.5 (2.6-8.5) % Eos % (Auto) 5.7 H (0-4.4) % Baso % (Auto) 0.8 (0.2-1.2) % Lymph # (Auto) 1.29 (0.9-3.2) K/mm3 Pacific # (Auto) 0.6 (0.1-0.6) K/mm3 Eos # (Auto) 0.4 H (0-0.3) K/mm3 Baso # (Auto) 0.1 (0.0-0.1) K/mm3 Abs Immat Gran (auto) 0.02 (0.00-0.031) K/mm3 Absolute Neuts (auto) 4.2 (1.3-6.7) K/mm3 Absolute Nucleated RBC 0.000 (0.0-0.012) K/mm3 Nucleated RBC % 0.0 (0.0-0.2) % % Immature Plt Fraction 2.9 (0.9-11.2) % PT 14.9 H (11.1-14.7) Seconds INR 1.1 APTT 27.0 (22.3-36.8) Seconds Sodium 136 L (137-145) mmol/L Potassium 4.5 (3.4-5.0) mmol/L Chloride 105 (98-107) mmol/L Carbon Dioxide 27 (22-30) mmol/L Anion Gap 4 (4-12) mmol/L BUN 29 H (9-20) mg/dL Creatinine 1.06 (0.7-1.3) mg/dL Estim Creat Clear Calc Not Reportable Estimated GFR > 60 (59 - ) Glucose 85 (65-110) mg/dL Calcium 8.2 L (8.4-10.2) mg/dL Total Bilirubin 0.7 (0.2-1.3) mg/dL AST 20 (17-59) U/L ALT 12 (6-50) U/L Alkaline Phosphatase 67 (38-126) U/L Troponin I < 0.012 (0.000-0.034) ng/mL NT-Pro-B Natriuret Pep 342 H (19.9-100) pg/mL Total Protein 6.0 L (6.3-8.2) g/dL Albumin 3.4 L (3.5-5.1) g/dL Urine Color Yellow (Yellow) Urine Appearance Cloudy H (Clear) Urine pH 6.0 (5.0-9.0) Ur Specific Reading 1.014 (1.001-1.035) Urine Protein Negative (Negative) mg/dL Urine Glucose (UA) Negative (Negative) mg/dL Urine Ketones Negative (Negative) mg/dL Ur Blood (Man) Negative (Negative) Urine Nitrate Negative (Negative) Urine Bilirubin Negative (Negative) Urine Urobilinogen 0.2 (<2.0) mg/dL Leukocyte Esterase Rfl 3+ H (Negative) BILLIE/UL Urine RBC 3-5 H (0-2) /hpf Urine WBC >100 H (0-3) /hpf Ur Squamous Epith Cells None seen (Few) /hpf Urine Bacteria 4+ H /hpf Urine Casts 0-2 <Salena Ludwig, JAVASCRIPT WEB DEVELOPER - Last Filed: 09/28/24 15:48> Lab Results 09/28/24 09/28/24 Range/Units 16:26 17:36 WBC 6.5 (4.5-10.0) K/mm3 RBC 4.43 L (4.6-6.20) M/mm3 Hgb 12.9 L (14.0-18.0) g/dL Hct 41.3 L (42.0-52.0) % MCV 93.2 (80-100) fl MCH 29.1 (26-34) pg MCHC 31.2 L (32-36) g/dl RDW 13.9 (11.5-14.5) % Plt Count 136 L (150-375) k/mm3 MPV 10.1 (7.4-10.4) fl Immature Gran % (Auto) 0.3 (0-0.5) % Neut % (Auto) 64.7 (45.5-73.1) % Lymph % (Auto) 20.0 (18.3-44.2) % Pacific % (Auto) 8.5 (2.6-8.5) % Eos % (Auto) 5.7 H (0-4.4) % Baso % (Auto) 0.8 (0.2-1.2) % Lymph # (Auto) 1.29 (0.9-3.2) K/mm3 Pacific # (Auto) 0.6 (0.1-0.6) K/mm3 Eos # (Auto) 0.4 H (0-0.3) K/mm3 Baso # (Auto) 0.1 (0.0-0.1) K/mm3 Abs Immat Gran (auto) 0.02 (0.00-0.031) K/mm3 Absolute Neuts (auto) 4.2 (1.3-6.7) K/mm3 Absolute Nucleated RBC 0.000 (0.0-0.012) K/mm3 Nucleated RBC % 0.0 (0.0-0.2) % % Immature Plt Fraction 2.9 (0.9-11.2) % PT 14.9 H (11.1-14.7) Seconds INR 1.1 APTT 27.0 (22.3-36.8) Seconds Sodium 136 L (137-145) mmol/L Potassium 4.5 (3.4-5.0) mmol/L Chloride 105 (98-107) mmol/L Carbon Dioxide 27 (22-30) mmol/L Anion Gap 4 (4-12) mmol/L BUN 29 H (9-20) mg/dL Creatinine 1.06 (0.7-1.3) mg/dL Estim Creat Clear Calc Not Reportable Estimated GFR > 60 (59 - ) Glucose 85 (65-110) mg/dL Calcium 8.2 L (8.4-10.2) mg/dL Total Bilirubin 0.7 (0.2-1.3) mg/dL AST 20 (17-59) U/L ALT 12 (6-50) U/L Alkaline Phosphatase 67 (38-126) U/L Troponin I < 0.012 (0.000-0.034) ng/mL NT-Pro-B Natriuret Pep 342 H (19.9-100) pg/mL Total Protein 6.0 L (6.3-8.2) g/dL Albumin 3.4 L (3.5-5.1) g/dL Urine Color Yellow (Yellow) Urine Appearance Cloudy H (Clear) Urine pH 6.0 (5.0-9.0) Ur Specific Reading 1.014 (1.001-1.035) Urine Protein Negative (Negative) mg/dL Urine Glucose (UA) Negative (Negative) mg/dL Urine Ketones Negative (Negative) mg/dL Ur Blood (Man) Negative (Negative) Urine Nitrate Negative (Negative) Urine Bilirubin Negative (Negative) Urine Urobilinogen 0.2 (<2.0) mg/dL Leukocyte Esterase Rfl 3+ H (Negative) BILLIE/UL Urine RBC 3-5 H (0-2) /hpf Urine WBC >100 H (0-3) /hpf Ur Squamous Epith Cells None seen (Few) /hpf Urine Bacteria 4+ H /hpf Urine Casts 0-2 <Duncan Robles MD - Last Filed: 09/29/24 07:24> Imaging Data Radiologist's impression: Impressions Head CT 09/28/24 16:20 Impression: No acute intracranial hemorrhage or suspicious mass effect. Chest X-Ray 09/28/24 16:23 IMPRESSION: No focal infiltrate or effusion. Cervical Spine CT 09/28/24 16:24 Impression: Significant degenerative disease, without acute fracture, as detailed above. <Duncan Robles MD - Last Filed: 09/29/24 07:24> Discharge Plan Discharge Clinical Impression: Lethargy, Urinary tract infection, Head injury <Salena Ludwig APRN - Last Filed: 09/28/24 15:48> Patient Disposition: Still a Patient <Salena Ludwig APRN - Last Filed: 09/28/24 15:48> Condition: Stable <Salena Ludwig APRN - Last Filed: 09/28/24 15:48>
--- OUTSIDE RECORDS SUMMARY | 2024-09-28 15:44 | XMS_ITS | Clinical Summary ---
Author Organization [facility] Address [address] [place] [id number] Phone Care Team Providers Care Corner Bead Operator Name Role Phone Eric French MD Primary Care Provider [phone] Allergies Active Allergy Reactions Criticality Noted Date [...] Comments Blood Pressure 162/80 05/05/2022 2:40 PM NISSAN SALES CONSULTANT Pulse 60 05/05/2022 2:40 PM NISSAN SALES CONSULTANT Temperature 35.3 C (95.5 F) 05/05/2022 2:40 PM NISSAN SALES CONSULTANT Respiratory Rate - - Oxygen Saturation - - Inhaled Oxygen Concentration - - Weight 89.4 kg (197 lb) 05/05/2022 2:40 PM NISSAN SALES CONSULTANT Height 182.9 cm (6') 05/05/2022 2:40 PM NISSAN SALES CONSULTANT Body Mass Index 26.72 05/05/2022 2:40 PM NISSAN SALES CONSULTANT Plan of Treatment Health Maintenance Due Date Last Done Comments Pneumococcal PPSV23/PCV13 65 + Years / Low and Medium Risk (1 of 4 - PCV) 1992 Influenza Vaccine (Season Ended) 2025 Insurance [address] [facility] [address] [place] [id number] [facility] MEDICARE ADVANTAGE Care Teams Corner Bead Operator Relationship Specialty Start Date End Date Eric French MD [address] [place] [id number] PCP - General Internal Medicine 05/05/22
--- OUTSIDE RECORDS SUMMARY | 2024-09-28 15:44 | XMS_ITS | Clinical Summary ---
Author Organization [facility] Address [address] [place] [id number] Care Team Providers Care Pivot Maker Name Role Phone Unavailable Primary Care Provider [...] - 2023-2 5 season) 2024 PHQ-2 (Physician [place]) 06/06/2024 Meningococcal B Vaccine Aged Out No l onger eligible based on patient's age to complete this topic Meningococcal Vaccine Aged Out No tyler soumya eligible based on patient's age to complete this topic RSV Immunizations Under 20 Months Aged Out No longer eligible based on patient's age to complete this topic Insurance [facility]
--- OUTSIDE RECORDS SUMMARY | 2024-09-28 15:44 | XMS_ITS | Encounter Summary ---
Author Organization [id number] Address [address] [place] [address] Care Team Providers Care Supervisory Clerk Name Role Phone Jeremy Carreon MD Primary Care Provider [phone] Encounter Details Date Type Department Care Team (Latest Contact Info) Description 03/17/2005 Outpatient Historical HIS [facility] SINAI Boyd, MD [place] [address] [place] [address] HYPERTENSION NOS (Primary Dx) Social History Tobacco Use Types Packs/Day Years Used Date Smoking Tobacco: Never Assessed Sex and Gender Information Value Date Recorded Sex Assigned at Not on file Legal Sex Male 3:20 AM CORSETIER Gender Identity Not on file Sexual Orientation [...] URINE ORDERABLES Final Result Performing Organization Address City/[facility] Co id Phone Number INTERFACE SYSTEM Refer to clinic/hospital [...] ORDERABLES Final Resul t Performing Organization Address City/[facility]/ZIP Co de Phone Number INTERFACE SYSTEM Refer to clinic/hospital department * PSA (03/17/2005 9:40 AM CDT) PSA 1.5 0.0 - 4.0 ng/mL INTERFACE SYSTEM Comment:Performed on [employer] M odular E170 System 03/17/2005 9:40 AM [...] Primary documented in this encounter Care Teams Supervisory Clerk Relationship Specialty Start Date End Date Jeremy Carreon MD [address] [place] [phone] PCP - General Internal Medicine 05/17/19 02/14/23 documented as of this encounter
--- OUTSIDE RECORDS SUMMARY | 2024-09-28 15:44 | XMS_ITS | Encounter Summary ---
Author Organization [facility] Address [address] [place] [address] Care Team Providers Care Steel Melter Name Role Phone Jeremy Carreon MD Primary Care Provider [phone] Encounter Details Date Type Department Care Team (Latest Contact Info) Description 07/08/2006 Outpatient Historical HIS [facility] SINAI Boyd, MD [place] [address] [place] [address] Routine General Medical Examination at a Health Care Facility (Primary Dx) Social History Tobacco Use Types Packs/Day Years Used Date Smoking Tobacco: Never Assessed Sex and Gender Information Value Date Recorded Sex Assigned at Not on file Legal Sex Male 3:20 AM LEARNING CENTER COORDINATOR Gender Identity Not on file Sexual Orientation Not on file documented as of this encounter Plan of Treatment Not on file documented as of this encounter Procedures Procedure Name Priority Date/Time Associated Diagnosis Comments URINALYSIS WITH MICROSCOPIC Routine 07/08/2006 10:56 AM LEARNING CENTER COORDINATOR TSH WITH REFLEX FT4 AND FT3 Routine 07/08/2006 10:53 AM LEARNING CENTER COORDINATOR CBC WITH DIFFERENTIAL Routine 07/08/2006 10:53 AM LEARNING CENTER COORDINATOR CBC WITH DIFFERENTIAL Routine 07/08/2006 10:53 AM LEARNING CENTER COORDINATOR PSA Routine 07/08/2006 10:53 AM LEARNING CENTER COORDINATOR LIPID PANEL Routine 07/08/2006 10:53 AM LEARNING CENTER COORDINATOR COMPREHENSIVE METABOLIC PANEL Routine 07/08/2006 10:53 AM LEARNING CENTER COORDINATOR documented in this encounter Results * URINALYSIS WITH MICROSCOPIC (07/08/2006 10:56 AM LEARNING CENTER COORDINATOR) COLOR UA Yellow INTERFACE SYSTEM CLARITY UA [...] /HPF INTERFACE SYSTEM 07/08/2006 10:5 6 AM LEARNING CENTER COORDINATOR Aristeo Boyd MD URINE ORDERABLES Edited Performing Organization Address City/[facility] de Phone Number INTERFACE SYSTEM Refer to clinic/hospital department * CBC WITH DIFFERENTIAL (07/08/2006 10:53 AM LEARNING CENTER COORDINATOR) NEUTROPHILS 63 45 - 70 % INTERFAC [...] K/uL INTERFACE SYSTEM 07/08/2006 10:5 3 AM LEARNING CENTER COORDINATOR Aristeo Boyd MD HEMATOLOGY ORDERABLES Edited Performing Organization Address City/[facility]/ZIP Co de Phone Number INTERFACE SYSTEM Refer to clinic/hospital department * (ABNORMAL) CBC WITH DIFFERENTIAL (07/08/2006 10:53 AM LEARNING CENTER COORDINATOR) WBC 10.0(H) 4.0 - 9.8 K/uL INTERFACE [...] fL INTERFACE SYSTEM 07/08/2006 10:5 3 AM LEARNING CENTER COORDINATOR Aristeo Boyd MD HEMATOLOGY ORDERABLES Edited Performing Organization Address City/[facility] Co de Phone Number INTERFACE SYSTEM Refer to clinic/hospital department * TSH WITH REFLEX FT4 AND FT3 (07/08/2006 10:53 AM LEARNING CENTER COORDINATOR) TSH 2.14 0.27 - 4.20 uU/mL INTERFACE SYSTEM 07/08/2006 10:5 3 AM LEARNING CENTER COORDINATOR Aristeo Boyd MD CHEMISTRY ORDERABLES Edited Performing Organization Address City/[facility] Co de Phone Number INTERFACE SYSTEM Refer to clinic/hospital department * PSA (07/08/2006 10:53 AM LEARNING CENTER COORDINATOR) PSA 1.9 0.0 - 4.0 ng/mL INTERFACE SYSTEM Comment:Performed on [employer] E170 System 07/08/2006 10:5 3 AM LEARNING CENTER COORDINATOR Aristeo Boyd MD CHEMISTRY ORDERABLES Edited Performing Organization Address City/[facility] Co de Phone Number INTERFACE SYSTEM Refer to clinic/hospital department * (ABNORMAL) LIPID PANEL (07/08/2006 10:53 AM LEARNING CENTER COORDINATOR) CHOLESTEROL 204(H) 100 - 199 mg/dL INTERFACE SYSTEM TRIGLYCERIDE 225(H) 10 - 149 mg/dL INTERFACE SYSTEM HDL 48 40 - 59 mg/dL INTERFACE SYSTEM CHOL/HDL RATIO 4.3 2.0 - 5.0 INTER FACE SYSTEM LDL CALCULATED 111(H) <=99 mg/dL INTERFACE SYSTEM LIPID PANEL COMMENT See Below INTERFACE SYSTEM Comment: The adult ATP and pediatric NCEP classifications for lipids are available on the [facility] Intranet at: [email or web address] Select: Lab Policies and Procedures Select: Reference Ranges - Lipids 07/08/2006 10:5 3 AM LEARNING CENTER COORDINATOR Aristeo Boyd MD CHEMISTRY ORDERABLES Edited INTERFACE SYSTEM Refer to clinic/hospital department * COMPREHENSIVE METABOLIC PANEL (07/08/2006 10:53 AM LEARNING CENTER COORDINATOR) GLUCOSE 90 65 - 99 mg/dL INTERFACE [...] and non- Americans is available on the [facility] Intranet at: [email or web address] Select: Lab Policies and Procedures Select: Reference Ranges - GFR 07/08/2006 10:5 3 AM LEARNING CENTER COORDINATOR Aristeo Boyd MD CHEMISTRY ORDERABLES Edited INTERFACE SYSTEM Refer to clinic/hospital department documented in this encounter Visit Diagnoses Diagnosis Routine general medical examination at a health care facility- Primary documented in this encounter Care Teams Steel Melter Relationship Specialty Start Date End Date Jeremy Carreon MD [address] [place] [phone] PCP - General Internal Medicine 05/17/19 02/14/23 documented as of this encounter
--- OUTSIDE RECORDS SUMMARY | 2024-09-28 15:45 | XMS_ITS | Clinical Summary ---
Author Organization [facility] Selina Meyer Address [address] [place] [address] Care Team Providers Care T[employer]or [employer] Name Role Phone Unavailable Primary Care Provider [...] on file Legal Sex Male 3:20 AM COMPLETION MANAGER Gender Identity Not on file Sexual [...] Height 182.9 cm (6') 05/12/2021 2:31 PM COMPLETION MANAGER Body Mass Index 24.22 05/12/2021 2:31 PM COMPLETION MANAGER Plan of Treatment Health Maintenance Due Date Last Done Comments DTAP/TDAP/TD VACCINES (1 - Tdap) 1961 PNEUMOCOCCAL VACCINE 50+ YEA RS (1 of 1 - PCV) 1992 02/05/2012 ZOSTER VACCINE (1 of 2) 1992 RSV VACCINE (60+ or ) (1 - 1-dose 75+ series) 2017 INFLUENZA VACCINE (#1) 2024 04/06/2022, 2021 Insurance [email or web address] [facility] [place]
--- OUTSIDE RECORDS SUMMARY | 2024-09-28 15:45 | XMS_ITS | Clinical Summary ---
Author Organization [facility] [employer] Address [address] [place] [address] Care Team Providers Care Operations Research Analyst Name Role Phone Darren Butler DO Primary Care Provider [phone] Source Comments [facility] [employer],non-owned Affiliates and Associated Physician Practices is amultiple site organization consisting of ambulatory clinics and hospital sitesin [place], [place], [place] and [place]. This disclosure is being madepursuant to the Care Everywhere program and may not contain all information available regarding this patient. Last updated 18.[facility] [employer] Allergies Active Allergy Reactions Criticality Noted Date [...] Department Care Team Description 07/04/2024 5:49 AM HEAD ANIMAL TRAINER - 07/10/2024 7:16 PM HEAD ANIMAL TRAINER Hospital Encounter [facility] 8S ACUTE [address] [place] [address] Miguel Bhagat MD [place], MD Rolanda Zapata, [...] care, and heating? Not very hard 07/05/2024 [facility] [place] [facility] Occup[facility] ional [facility] - Occupational Stress [...] any time in the past 12 m [facility], were you homeless or living in a intermediate (including now)? No 07/05/2024 Sex and Gender Information Value Date Recorded Sex Assigned at Not on file Legal Sex Male 4:32 AM HEAD ANIMAL TRAINER Gender Identity Not on file Sexual Orientation Not on file Last Filed Vital Signs Vital Sign Reading Time Taken Comments Blood Pressure 129/91 07/10/2024 4:09 PM HEAD ANIMAL TRAINER Pulse 81 07/10/2024 4:09 PM HEAD ANIMAL TRAINER Temperature 36.8 C (98.2 F) 07/10/2024 4:09 PM HEAD ANIMAL TRAINER Respiratory Rate 18 07/10/2024 4:09 PM HEAD ANIMAL TRAINER Oxygen Saturation 95% 07/10/2024 4:09 PM HEAD ANIMAL TRAINER Inhaled Oxygen Concentration - - Weight 72.5 kg (159 lb 13.3 oz) 07/10/2024 4:00 AM HEAD ANIMAL TRAINER Height 177.8 cm (5' 10 ) 07/05/2024 8:22 PM HEAD ANIMAL TRAINER Body Mass Index 22.93 07/05/2024 8:22 PM HEAD ANIMAL TRAINER Plan of Treatment Health Maintenance Due Date [...] POINT OF CARE Routine 07/10/2024 11:33 AM HEAD ANIMAL TRAINER PHOSPHORUS BLOOD Routine 07/09/2024 3:40 AM HEAD ANIMAL TRAINER MAGNESIUM BLOOD Routine 07/09/2024 3:40 AM HEAD ANIMAL TRAINER BASIC METABOLIC PANEL (CALCIUM TOTAL) Routine 07/09/2024 3:40 AM HEAD ANIMAL TRAINER CBC W AUTO DIFFERENTIAL Routine 07/09/2024 3:39 AM HEAD ANIMAL TRAINER PHOSPHORUS BLOOD Routine 07/08/2024 8:43 PM HEAD ANIMAL TRAINER MAGNESIUM BLOOD Routine 07/08/2024 8:43 PM HEAD ANIMAL TRAINER CBC W AUTO DIFFERENTIAL Routine 07/08/2024 8:43 PM HEAD ANIMAL TRAINER BASIC METABOLIC PANEL (CALCIUM TOTAL) Routine 07/08/2024 8:43 PM HEAD ANIMAL TRAINER PHOSPHORUS BLOOD Routine 07/07/2024 6:22 AM HEAD ANIMAL TRAINER MAGNESIUM BLOOD Routine 07/07/2024 6:22 AM HEAD ANIMAL TRAINER CBC W AUTO DIFFERENTIAL Routine 07/07/2024 6:22 AM HEAD ANIMAL TRAINER BASIC METABOLIC PANEL (CALCIUM TOTAL) Routine 07/07/2024 6:22 AM HEAD ANIMAL TRAINER CBC W AUTO DIFFERENTIAL Routine 07/06/2024 7:01 AM HEAD ANIMAL TRAINER PHOSPHORUS BLOOD Routine 07/06/2024 7:00 AM HEAD ANIMAL TRAINER MAGNESIUM BLOOD Routine 07/06/2024 7:00 AM HEAD ANIMAL TRAINER BASIC METABOLIC PANEL (CALCIUM TOTAL) Routine 07/06/2024 7:00 AM HEAD ANIMAL TRAINER SARS-COV-2 (COVID-19) RAPID STAT 07/05/2024 1:45 PM HEAD ANIMAL TRAINER Fall, initial encounter CARDIAC EKG ORDER 07/05/2024 11: 30 AM HEAD ANIMAL TRAINER PHOSPHORUS BLOOD STAT 07/05/2024 3:59 AM HEAD ANIMAL TRAINER MAGNESIUM BLOOD STAT 07/05/2024 3:59 AM HEAD ANIMAL TRAINER CBC W AUTO DIFFERENTIAL STAT 07/05/2024 3:59 AM HEAD ANIMAL TRAINER BASIC METABOLIC PANEL (CALCIUM TOTAL) STAT 07/05/2024 3:59 AM HEAD ANIMAL TRAINER URINALYSIS W/MICROSCOPIC NO CULTURE STAT 07/05/2024 3:59 AM HEAD ANIMAL TRAINER URINE DRUG SCREEN IMMUNOASSAY STAT 07/05/2024 3:59 [address]AL [address] HEAD WO CONTRAST STAT 07/04/2024 1 1:19 AM HEAD ANIMAL TRAINER SDH (subdural hematoma) BLOOD TYPE VERIFICATION STAT 07/04/2024 9:40 AM HEAD ANIMAL TRAINER TYPE + SCREEN PANEL STAT 07/04/2024 9 :38 AM HEAD ANIMAL TRAINER EKG 12-LEAD STAT 07/04/2024 6:31 AM HEAD ANIMAL TRAINER Fall, initial encounter PTT [facility] STAT 07/04/2024 6:24 AM HEAD ANIMAL TRAINER PT-INR [facility] STAT 07/04/2024 6:24 AM HEAD ANIMAL TRA[address]ER CT LUMBAR SPINE WO CONTRAST STAT 07/04/2024 6:23 AM HEAD ANIMAL TRAINER Fall, initial encounter CT THORACIC SPINE WO CONTRAST STAT 07/04/2024 6:23 AM HEAD ANIMAL TRAINER Fall, initial encounter CT CHEST ABDOMEN PELVIS W CONT STAT 07/04/2024 6:23 AM HEAD ANIMAL TRAINER Fall, initial encounter CT CERVICAL SPINE WO CONTRAST STAT 07/04/2024 6:23 AM HEAD ANIMAL TRAINER Fall, initial encounter CT HEAD WO CONTRAST STAT 07/04/2024 6 :23 AM HEAD ANIMAL TRAINER Fall, initial encounter TEG 6S PLATELET MAPPING STAT 07/04/2024 6:00 AM HEAD ANIMAL TRAINER TEG 6 GLOBAL HEMOSTASIS W/ LYSIS STAT 07/04/2024 6:00 AM HEAD ANIMAL TRAINER CBC W AUTO DIFFERENTIAL STAT 07/04/2024 6:00 AM HEAD ANIMAL TRAINER BASIC METABOLIC PANEL (CALCIUM TOTAL) STAT 07/04/2024 6:00 AM HEAD ANIMAL TRAINER ALCOHOL ETHYL BLOOD STAT 07/04/2024 6 :00 AM HEAD ANIMAL TRAINER XR PELVIS 1 OR 2VW STAT 07/04/2024 6: 00 AM HEAD ANIMAL TRAINER Fall, initial encounter XR CHEST 1VW PORTABLE STAT 07/04/2024 6:00 AM HEAD ANIMAL TRAINER Fall, initial encounter from Last 3 Months Results * (ABNORMAL) GLUCOSE - POINT OF CARE (07/10/2024 11:33 AM HEAD ANIMAL TRAINER) Glucose WB/POC 131(H) 70 - 99 mg/dL 07/10/2024 3:47 PM HEAD ANIMAL TRAINER [facility] Specimen Type Cap Fingerstick 2024 3:47 PM HEAD ANIMAL TRAINER [facility] Blood BLOOD SPECIMEN / Unknown 07/10/2024 11:33 AM HEAD ANIMAL TRAINER 07/10/2024 3:47 PM HEAD ANIMAL TRAINER us Cinthya Orantes MD LAB - POINT OF CARE ORD ERABLES Final Result [facility] [address] [place] [address], [facility] [phone] * (ABNORMAL) BASIC METABOLIC PANEL (CALCIUM TOTAL) (07/09/2024 3:40 AM HEAD ANIMAL TRAINER) Only the most recent of6 resultswithin the time period is included. BUN 26 7 - 26 mg/dL 07/09/2024 4:55 AM [facility] Creatinine 1.05 0.71 - 1.16 mg/dL 07/09/2024 4:55 AM [facility] Sodium 139 136 - 145 mmol/L 07/09/2024 4:55 AM [facility] Potassium 4.2 3.5 - 4.5 mmol/L 07/09/2024 4:55 AM [facility] Chloride 108(H) 98 - 107 mmol/L 07/09/2024 4:55 AM [facility] CO2 24 22 - 29 mmol/L 07/09/2024 4:55 AM [facility] Glucose 85 70 - 99 mg/dL 07/09/2024 4:55 AM [facility] Calcium 8.1(L) 8.4 - 10.2 mg/dL 07/09/2024 4:55 AM [facility] Anion Gap 7 6 - 16 07/09/2024 4:55 AM [facility] BUN/Creatinine Ratio 25(H) 7 - 23 07/09/2024 4:55 AM [facility] Osmolality Calculated 292 275 - 295 mOsm/kg 07/09/2024 4:55 AM [facility] eGFR by CKD-EPI 71(L) >=90 mL/min/1.7 3 m2 07/09/2024 4:55 AM [facility] Blood BLOOD SPECIMEN / Unknown Lab Venipuncture / Unknown 07/09/2024 3:40 AM HEAD ANIMAL TRAINER 07/09/2024 4:29 AM HEAD ANIMAL TRAINER Cinthya Orantes MD LAB - CHEMISTRY ORDERAB LES Final Result Performing Organization Address City/[facility]/ZIP Co de Phone Number [address] [phone], [facility] [phone] * PHOSPHORUS BLOOD (07/09/2024 3:40 AM HEAD ANIMAL TRAINER) Only the most recent of5 resultswithin the time period is included. Phosphorus 3.5 2.8 - 5.1 mg/dL 07/09/2024 4:55 AM HEAD ANIMAL TRAINER [facility] Blood BLOOD SPECIMEN / Unknown Lab Venipuncture / Unknown 07/09/2024 3:40 AM HEAD ANIMAL TRAINER 07/09/2024 4:29 AM HEAD ANIMAL TRAINER Cinthya Orantes MD LAB - CHEMISTRY ORDERAB LES Final Result Performing Organization Address City/[facility]/ZIP Co de Phone Number [address] [address], [facility] [phone] * MAGNESIUM BLOOD (07/09/2024 3:40 AM HEAD ANIMAL TRAINER) Only the most recent of5 resultswithin the time period is included. Magnesium 2.0 1.6 - 2.6 mg/dL 07/09/2024 4:55 AM HEAD ANIMAL TRAINER [facility] Blood BLOOD SPECIMEN / Unknown Lab Venipuncture / Unknown 07/09/2024 3:40 AM HEAD ANIMAL TRAINER 07/09/2024 4:29 AM HEAD ANIMAL TRAINER us Cinthya Orantes MD LAB - CHEMISTRY ORDERAB LES Final Result Performing Organization Address City/[facility]/ZIP Co de Phone Number [address] [address], [facility] [phone] * (ABNORMAL) CBC W AUTO DIFFERENTIAL (07/09/2024 3:39 AM HEAD ANIMAL TRAINER) Only the most recent of6 resultswithin the time period is included. WBC 5.8 4.0 - 10.7 x10E9/L 07/09/2024 4:44 AM [facility] RBC Count 4.13(L) 4.30 - 5.80 x10E12/L 07/09/2024 4:44 AM [facility] Hemoglobin 12.2(L) 13.3 - 17.5 g/dL 07/09/2024 4:44 AM [facility] Hematocrit 36.8(L) 38.7 - 51.1 % 07/09/2024 4:44 AM [facility] MCV 89.1 80.0 - 98.0 fL 07/09/2024 4:44 AM [facility] MCH 29.5 26.7 - 33.6 pg 07/09/2024 4:44 AM [facility] MCHC 33.2 31.7 - 36.3 g/dL 07/09/2024 4:44 AM [facility] RDW-CV 14.0 11.3 - 14.8 % 07/09/2024 4:44 AM [facility] Platelet Count 105(L) 150 - 420 x10E9/L 07/09/2024 4:44 AM [facility] MPV 10.2 7.8 - 11.4 fL 07/09/2024 4:44 AM [facility] Neutrophil % 59.2 41.0 - 74.0 % 07/09/2024 4:44 AM [facility] Lymphocyte % 21.8 17.0 - 47.0 % 07/09/2024 4:44 AM [facility] Monocyte % 9.3 3.0 - 11.0 % 07/09/2024 4:44 AM [facility] Eosinophil % 8.8(H) 0.0 - 7.0 % 07/09/2024 4:44 AM [facility] Basophil % 0.7 0.0 - 1.6 % 07/09/2024 4:44 AM [facility] Immature Granulocytes % 0.2 0.0 - 1.0 % 07/09/2024 4:44 AM [facility] Neutrophil Absolute 3.42 1.60 - 7.50 x10E9/L 07/09/2024 4:44 AM [facility] Lymphocyte Absolute 1.26 1.00 - 4.40 x10E9/L 07/09/2024 4:44 AM HEAD ANIMAL TRAINER [facility] Monocyte Absolute 0.54 0.15 - 1.00 x10E9/L 07/09/2024 4:44 AM [facility] Eosinophil Absolute 0.51 0.00 - 0.60 x10E9/L 07/09/2024 4:44 AM [facility] Basophil Absolute 0.04 0.00 - 0.13 x10E9/L 07/09/2024 4:44 AM [facility] Blood BLOOD SPECIMEN / Unknown Lab Venipuncture / Unknown 07/09/2024 3:39 AM HEAD ANIMAL TRAINER 07/09/2024 4:27 AM HEAD ANIMAL TRAINER Cinthya Orantes MD LAB - HEMATOLOGY ORDERA BLES Final Result [address] [address] [phone] * SARS-COV-2 (COVID-19) RAPID (07/05/2024 1:45 PM HEAD ANIMAL TRAINER) COVID-19 PCR Not detected Not detected 07/05/19 2:26 PM HEAD ANIMAL TRAINER [facility] Microbiology SPECIMEN FROM NASOPHARYNGEAL STRUCTURE / Unknown Collection / Unknown 07/05/2024 1:45 PM HEAD ANIMAL TRAINER 07/05/2024 1:53 PM HEAD ANIMAL TRAINER Narrative [facility] - 07/05/2024 2:26 PM HEAD ANIMAL TRAINER The Cepheid Xpert Xpress SARS-COV-2 has been [...] MD LAB - MICROBIOLOGY ORDERABLES Final Result [facility] [address] [place] [address], [facility] [phone] * CARDIAC EKG ORDER (07/05/2024 11:30 AM HEAD ANIMAL TRAINER) Narrative 07/05/2024 11:30 AM HEAD ANIMAL TRAINER Ordered by an unspecified provider. us Scanned Document CARDIAC SERVICES ORDERABLES Fin al Result * (ABNORMAL) URINALYSIS W/MICROSCOPIC NO CULTURE (07/05/2024 3:59 AM HEAD ANIMAL TRAINER) Color UA Yellow Straw, Yellow 07/05/2024 4:24 AM [facility] Clarity UA Slt Cloudy(A) Clear 07/05/2024 4:24 AM [facility] Specific Lawrence UA 1.032(H) 1.005 - 1.030 07/05/2024 4:24 AM [facility] pH UA 5.0 5.0 - 8.0 pH 07/05/2024 4:24 AM [facility] Protein UA Negative Negative 07/05/2024 4:24 AM [facility] Glucose UA Negative Negative 07/05/2024 4:24 AM [facility] Ketone UA Trace(A) Negative 07/05/2024 4:24 AM [facility] Bilirubin UA Negative Negative 07/05/2024 4:24 AM [facility] Blood UA Negative Negative 07/05/2024 4:24 AM [facility] Nitrite UA Negative Negative 07/05/2024 4:24 AM [facility] Leukocyte Esterase Trace(A) Negative 07/05/2024 4:24 AM [facility] Urobilinogen UA Negative Negative mg/dL 07/05/2024 4:24 AM [facility] RBC UA 21-50(A) None Seen, 0-2, 3-5 /HPF 07/05/2024 4:24 AM [facility] WBC UA 11-20(A) None Seen, 0-5 /HPF 07/05/2024 4:24 AM [facility] Bacteria UA 1+(A) None /HPF 07/05/2024 4:24 AM [facility] Squamous Epithelial Cells UA None Seen None Seen, 0-2, 3-5 /HPF 07/05/2024 4:24 AM [facility] Amorphous Crystals Few(A) None /HPF 07/05/2024 4:24 AM [facility] Urine URINE SPECIMEN OBTAINED BY CLEAN CATCH PROCEDURE / Unknown Collection / Unknown 07/05/2024 3:59 AM [facility] 07/05/2024 4:03 AM [facility] - 07/05/2024 4:24 AM [facility] Cinthya Orantes MD LAB - URINALYSIS ORDERA BLES Final Result [facility] [address] [place] [phone], [facility] [phone] * (ABNORMAL) URINE DRUG SCREEN IMMUNOASSAY (07/05/2024 3:59 AM [facility]) [facility] Amphetamines Screen Urine Negative Negative : < 1000 ng/mL 07/05/2024 4:42 AM [facility] Barbiturates Screen Urine Positive(A) Negative : < 200 ng/mL 07/05/2024 4:42 AM [facility] Comment: Positive urine barbiturate screening results should be confirmed by another generally accepted non-immunological method such as gas chromatography or mass spectrometry. Benzodiazepine Screen Urine Negative Negative : < 200 ng/mL 07/05/2024 4:42 AM [facility] Opiates Urine Negative Negative : < 300 ng/mL 07/05/2024 4:42 AM [facility] Cocaine Metabolites Urine Negative Negative : < 300 ng/mL 07/05/2024 4:42 AM [facility] Phencyclidine Screen Urine Negative Negative : < 25 ng/ml 07/05/2024 4:42 AM [facility] Cannabinoids Screen Urine Negative Negative : <50 ng/mL 07/05/2024 4:42 AM [facility] Methadone Screen Urine Negative Negative : < 300 ng/mL 07/05/2024 4:42 AM [facility] Fentanyl Screen Urine Negative Negative : <1.5 ng/mL 07/05/2024 4:42 AM [facility] Urine URINE / Unknown Collection / Unknown 07/05/2024 3:59 AM HEAD ANIMAL TRAINER 07/05/2024 4:04 AM HEAD ANIMAL TRAINER Narrative [facility] - 07/05/2024 4:42 AM HEAD ANIMAL TRAINER The Urine Toxicology Screening Panel does not screen for Propoxyphene, Meprobamate, Carisoprodol, Trazodone, caae-ybw-kwqvpyy medications and/or volatiles (Acetone, Isopropanol, Methanol or Ethylene Glycol). Ethanol, Salicylate, Acetaminophen, Tricyclic Antidepressants and several therapeutic drugs may be individually assayed in serum or plasma specimen. Toxicology testing by the [facility] is an aid to medical diagnosis and treatment of patients. No documented chain of custody was maintained. Results are intended to be used for clinical purposes only. us Cinthya Orantes MD LAB - URINE CHEMISTRY O RDERABLES Final Result [facility] [address] [place] [phone], [facility] [phone] * CT Head Wo Contrast (07/04/2024 11:19 AM HEAD ANIMAL TRAINER) Only the most recent of2 resultswithin the time period is included. Anatomical Region Laterality Modality Head Computed Tomogra phy 07/04/2024 11:3 9 AM HEAD ANIMAL TRAINER Impressions 07/04/2024 11:42 AM HEAD ANIMAL TRAINER IMPRESSION: 1. Unchanged size of the bilateral subdural hematomas along the cerebral convexities measuring up to 5 mm in maximum thickness. Slightly increased attenuation is likely related to contrast staining from the previous examinations. > Interpreting Provider: Veda Monk MD on 07/04/2024 11:42 AM Narrative 07/04/2024 11:42 AM HEAD ANIMAL TRAINER PROCEDURE: CT HEAD WO CONTRAST, DATE/TIME OF EXAM: 07/04/2024 11:19 AM, LOCATION [facility] INDICATION: S06.5XAA: SDH (subdural hematoma) (HCC) ADDITIONAL [...] DATE/TIME OF EXAM: 07/04/2024 11:19 AM, LOCATION [facility] INDICATION: S06.5XAA: SDH (subdural hematoma) (HCC) ADDITIONAL [...] * BLOOD TYPE VERIFICATION (07/04/2024 9:40 AM HEAD ANIMAL TRAINER) ABO Rh O POS 07/04/2024 10:38 AM HEAD ANIMAL TRAINER [facility] Blood Bank BLOOD SPECIMEN / Unknown Venipuncture / Unknown 07/04/2024 9:40 AM HEAD ANIMAL TRAINER 07/04/2024 9:52 AM HEAD ANIMAL TRAINER Cinthya Orantes MD LAB - BLOOD BANK ORDERA BLES Final Result Performing Organization Address [facility]/ZIP Co de Phone Number [facility] [address] [place] [phone], [facility] [phone] * TYPE + SCREEN PANEL (07/04/2024 9:38 AM HEAD ANIMAL TRAINER) Antibody Screen NEG 10:56 AM HEAD ANIMAL TRAINER [facility] ABO Rh O POS 07/04/2024 10:56 AM HEAD ANIMAL TRAINER [facility] Blood Bank BLOOD SPECIMEN / Unknown Venipuncture / Unknown 07/04/2024 9:38 AM HEAD ANIMAL TRAINER 07/04/2024 9:51 AM HEAD ANIMAL TRAINER Cinthya Orantes MD LAB - BLOOD BANK ORDERA BLES Final Result Performing Organization Address [facility]/ZIP Co de Phone Number [facility] [address] [place] [phone], [employer] [phone] * EKG 12-LEAD (07/04/2024 6:31 AM HEAD ANIMAL TRAINER) Ventricular Rate 60 BPM [facility] MUSE Atrial Rate 60 BPM [facility] MUSE P-R Interval 180 ms [facility] MUSE QRS Duration ms 80 ms [facility] MUSE Q-T Interval ms 418 ms [facility] MUSE QTC Calculation (Bezet) 418 ms [facility] MUSE Calculated P [place] 52 degrees [facility] MUSE Calculated R [place] -26 degrees [facility] MUSE Calculated T [place] 46 degrees [facility] MUSE Interpretation EKG NORMAL SINUS RHYTHM LOW VOLTAGE QRS SEPTAL INFARCT , AGE UNDETERMINED ABNORMAL ECG NO PREVIOUS ECGS AVAILABLE Confirmed by KATY FLEMING MD ([id number]) on 07/13/2024 10:51:42 PM [facility] MUSE 07/04/2024 6:31 AM HEAD ANIMAL TRAINER 07/13/2024 10:51 PM HEAD ANIMAL TRAINER Cinthya Orantes MD ECG ORDERABLES Edited Result - Final Performing Organization Address City/[facility]/ZIP Co de Phone Number [facility] MUSE * PTT [facility] (07/04/2024 6:24 AM [facility]) APTT 23.3 23.0 - 38.4 Seconds 07/04/2024 7:00 AM [facility] Comment:Suggested therapeuti c range for full dose I.V. unfractionated heparin therapy for venous thromboembolism is 71 to 109 seconds. Blood BLOOD SPECIMEN / Unknown Venipuncture / Unknown 07/04/2024 6:24 AM HEAD ANIMAL TRAINER 07/04/2024 6:35 AM HEAD ANIMAL TRAINER Cinthya Orantes MD LAB - COAGULATION ORDER CARINE Final Result Performing Organization Address City/[facility]/ZIP Co de Phone Number [facility] [address] [place] [address], [facility] [phone] * PT-INR [facility] (07/04/2024 6:24 AM HEAD ANIMAL TRAINER) PT 14.2 12.1 - 14.8 Seconds 07/04/2024 7:00 AM [facility] INR 1.1 See Comment 07/04/2024 7:00 AM [facility] Comment:The suggested therap eutic range for standard coumadin (warfarin) therapy is an INR of 2.0-3.0. For high-risk patients (Mechanical Mitral Valve Prosthesis, etc.), the suggested prophylactic therapeutic range is an INR of 2.5-3.5. Blood BLOOD SPECIMEN / Unknown Venipuncture / Unknown 07/04/2024 6:24 AM HEAD ANIMAL TRAINER 07/04/2024 6:35 AM HEAD ANIMAL TRAINER us Cinthya Orantes MD LAB - COAGULATION ORDER CARINE Final Result [facility] [address] [place] [phone], [facility] [phone] * CT CHEST ABDOMEN PELVIS W CONT - Abdomen-pelvis trauma, blunt or penetrating (07/04/2024 6:23 AM HEAD ANIMAL TRAINER) Anatomical Region Laterality Modality Chest, Abdomen, Pelvis Computed Tomography 07/04/2024 6:27 AM HEAD ANIMAL TRAINER Impressions 07/04/2024 9:01 AM HEAD ANIMAL TRAINER Impression: 1.No acute visceral, vascular, or osseus injury identified in the chest, abdomen, or pelvis. 2.Ectatic ascending aorta. 3.Moderate hiatal hernia. 4.Soft tissue contusion of right gluteal region. 5.Enlarged prostate with mild bladder wall thickening with slightly trabeculated appearance and a few diverticula overall favored to be related to underlying chronic bladder outlet obstruction. > Dictated by Ant De Jesus MD (hvac residential service technician). IPuneet have personally reviewed and interpreted this examination/study. > Interpreting Provider: Puneet Perez on 07/04/2024 9:01 AM Narrative 07/04/2024 9:01 AM HEAD ANIMAL TRAINER PROCEDURE: CT CHEST ABDOMEN PELVIS W CONT, DATE/TIME OF EXAM: 07/04/2024 6:23 AM, LOCATION [facility] INDICATION: Trauma ADDITIONAL CLINICAL INFORMATION: Ordering Provider [...] CONT, DATE/TIME OF EXAM:07/04/2024 6:23 AM, LOCATION [facility] INDICATION: Trauma ADDITIONAL CLINICAL INFORMATION: Ordering Provider [...] > Dictated by Ant De Jesus MD (hvac residential service technician). Puneet Esparza have personally reviewed and interpreted this examination/study. > Interpreting Provider: Puneet Perez on 07/04/2024 9:01 AM us Cinthya Orantse MD CT ORDERABLES Final R esult * CT LUMBAR SPINE WO CONTRAST - T/L-spine trauma, Spine fracture (07/04/2024 6:23 AM HEAD ANIMAL TRAINER) Anatomical Region Laterality Modality Spine Computed Tomogra phy 07/04/2024 8:00 AM HEAD ANIMAL TRAINER Impressions 07/04/2024 11:32 AM HEAD ANIMAL TRAINER IMPRESSION: 1. No evidence of acute fracture in the cervical, thoracic, or lumbar spine. 2. Multiple chronic findings as detailed in the report. > Dictated by Arnoldo Banks MD, (hvac residential service technician). Veda Esparza MD have personally reviewed and interpreted this examination/study. 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 IMPRESSION: 1. No evidence of acute fracture in the cervical, thoracic, or lumbar spine. 2. Multiple chronic findings as detailed in the report. > Dictated by Arnoldo Banks MD, (hvac residential service technician). Veda Esparza MD have personally reviewed and interpreted this examination/study. > Interpreting Provider: Veda Monk MD on 07/04/2024 11:32 AM us Cinthya Orantes MD CT ORDERABLES Final R esult * CT THORACIC SPINE WO CONTRAST - T/L-spine trauma, spine fracture (07/04/2024 6:23 AM HEAD ANIMAL TRAINER) Anatomical Region Laterality Modality Spine Computed Tomogra phy 07/04/2024 8:00 AM HEAD ANIMAL TRAINER Impressions 07/04/2024 11:32 AM HEAD ANIMAL TRAINER IMPRESSION: 1. No evidence of acute fracture in the cervical, thoracic, or lumbar spine. 2. Multiple chronic findings as detailed in the report. > Dictated by Arnodlo Banks MD, (hvac residential service technician). Veda Esparza MD have personally reviewed and interpreted this examination/study. 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 IMPRESSION: 1. No evidence of acute fracture in the cervical, thoracic, or lumbar spine. 2. Multiple chronic findings as detailed in the report. > Dictated by Arnoldo Banks MD, (hvac residential service technician). I, Veda Monk MD have personally reviewed and interpreted this examination/study. > Interpreting Provider: Veda Monk MD on 07/04/2024 11:32 AM us Cinthya Orantes MD CT ORDERABLES Final R esult * CT CERVICAL SPINE WO CONTRAST - C-Spine Trauma, Spine fracture (07/04/2024 6:23 AM HEAD ANIMAL TRAINER) Anatomical Region Laterality Modality Spine Computed Tomogra phy 07/04/2024 8:00 AM HEAD ANIMAL TRAINER Impressions 07/04/2024 11:32 AM HEAD ANIMAL TRAINER IMPRESSION: 1. No evidence of acute fracture in the cervical, thoracic, or lumbar spine. 2. Multiple chronic findings as detailed in the report. > Dictated by Arnoldo Banks MD, (hvac residential service technician). I, Veda Monk MD have personally reviewed and interpreted this examination/study. 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 IMPRESSION: 1. No evidence of acute fracture in the cervical, thoracic, or lumbar spine. 2. Multiple chronic findings as detailed in the report. > Dictated by Arnoldo Banks MD, (hvac residential service technician). I, Veda Monk MD have personally reviewed and interpreted this examination/study. > Interpreting Provider: Veda Monk MD on 07/04/2024 11:32 AM us Cinthya Orantes MD CT ORDERABLES Final R esult * (ABNORMAL) TEG 6 GLOBAL HEMOSTASIS W/ LYSIS (07/04/2024 6:00 AM HEAD ANIMAL TRAINER) Citrated Kaolin R (Reaction Time) 2.6(L) 4.6 - 9.1 min 07/04/2024 7:39 AM [facility] Comment:CK R result below no rmal range. Consistent with hypercoagulable clotting factors. Citrated Kaolin LY30 (Lysis) 0.0 0.0 - 2.6 % 07/04/2024 7:39 AM [facility] Citrated Functional Fibrinogen MA (Max Amplitude) 13.1(L) 15.0 - 32.0 mm 07/04/2024 7:39 AM [facility] Comment:CFF MA below normal range. Consistent with decreased fibrinogen contribution to clot strength. Citrated RapidTEG MA (Max Amplitude) 49.6(L) 52.0 - 70.0 mm 07/04/2024 7:39 AM [facility] Comment:MARKETING TRAFFIC MANAGER MA below normal range. Consistent with reduced clot strength from platelets or fibrinogen. Compare with CFF MA. Blood BLOOD SPECIMEN / Unknown Venipuncture / Unknown 07/04/2024 6:00 AM HEAD ANIMAL TRAINER 07/04/2024 6:37 AM [facility] us Cinthya Orantes MD LAB - HEMATOLOGY ORDERA BLES Final Result [facility] [address] [place] [id number], [facility] [phone] * (ABNORMAL) TEG 6S PLATELET MAPPING (07/04/2024 6:00 AM HEAD ANIMAL TRAINER) TEGPLM (Max Amplitude) Koalin 52.8(L) 53.0 - 68.0 mm 07/04/2024 7:23 AM [facility] TEGPLM (Max Amplitude) ACTF 3.6 2.0 - 19.0 mm 07/04/2024 7:23 AM [facility] TEGPLM (Max Amplitude) ADP 16.8(L) 45.0 - 69.0 mm 07/04/2024 7:23 AM [facility] Comment:ADP MA below normal range. Inhibition present. TEGPLM (Max Amplitude) AA 8.1(L) 51.0 - 71.0 mm 07/04/2024 7:23 AM [facility] Comment:AA MA below normal r ct. Inhibition present. TEGPLM %Inhibition ADP 73.2(H) 0.0 - 17.0 % 07/04/2024 7:23 AM [facility] TEGPLM %Inhibition AA 90.9(H) 0.0 - 11.0 % 07/04/2024 7:23 AM [facility] TEGPLM %Aggregation ADP 26.8(L) 83.0 - 100.0 % 07/04/2024 7:23 AM [facility] TEGPLM % Aggregation AA 9.1(L) 89.0 - 100.0 % 07/04/2024 7:23 AM [facility] Blood BLOOD SPECIMEN / Unknown Venipuncture / Unknown 07/04/2024 6:00 AM [facility] 07/04/2024 6:37 AM [facility] us Cinthya Orantes MD LAB - HEMATOLOGY ORDERA BLES Final Result Performing Organization Address City/State/[facility] Co de Phone Number [facility] [address] [place] [phone], [facility] [phone] * ALCOHOL ETHYL BLOOD (07/04/2024 6:00 AM [facility]) Ethanol (mg/dL) <10 <10 mg/dL 7:03 AM [facility] Ethanol Calculated (g/dL) <0.010 <=0.010 g/dL 07/04/2024 7:03 AM [facility] Blood BLOOD SPECIMEN / Unknown Venipuncture / Unknown 07/04/2024 6:00 AM [facility] 07/04/2024 6:39 AM [facility] Narrative [facility] - 07/04/2024 7:03 AM [facility] Ethanol Interp <10: None Detected. Depression of AUTOMOBILE CLUB TRAVEL COUNSELOR: >100 mg/dl Potentially Critical: >250 mg/dl Potentially [...] LAB - CHEMISTRY ORDERAB LES Final Result [facility] [place] [address], [facility] [phone] * XR CHEST 1VW PORTABLE (07/04/2024 6:00 AM HEAD ANIMAL TRAINER) Anatomical Region Laterality Modality Chest Digital Radiogra phy 07/04/2024 6:08 AM HEAD ANIMAL TRAINER Impressions 07/04/2024 9:56 AM HEAD ANIMAL TRAINER IMPRESSION: No acute pulmonary disease. Prominence of the aortic arch could indicate aortic dilatation. > Dictated by Pauline Bravo MD (hvac residential service technician) Elkin Esparza MD have personally reviewed and interpreted this examination/study. > Interpreting Provider: Elkin Eric MD on 07/04/2024 9:56 AM Narrative 07/04/2024 9:56 AM HEAD ANIMAL TRAINER PROCEDURE: XR CHEST 1VW PORTABLE, DATE/TIME OF EXAM: 07/04/2024 6:08 AM, LOCATION [facility] INDICATION: Trauma ADDITIONAL CLINICAL INFORMATION: Ordering Provider Reason For Exam: Technologist Note: Additional: COMPARISON: None. FINDINGS: There is no pulmonary consolidation, pleural effusion, or pneumothorax. The heart size is normal. Prominence of the aortic arch could indicate aortic dilatation. Procedure Note Elkin Eric MD - 07/04/2024 PROCEDURE: XR CHEST 1VW PORTABLE, DATE/TIME OF EXAM: 07/04/2024 6:08AM, LOCATION [facility] INDICATION: Trauma ADDITIONAL CLINICAL INFORMATION: Ordering Provider Reason For Exam: Technologist Note: Additional: COMPARISON: None. FINDINGS: There is no pulmonary consolidation, pleural effusion, or pneumothorax. The heart size is normal. Prominence of the aortic arch could indicate aortic dilatation. IMPRESSION: No acute pulmonary disease. Prominence of the aortic arch could indicate aortic dilatation. > Dictated by Pauline Bravo MD (hvac residential service technician) Elkin Esparza MD have personally reviewed and interpreted this examination/study. > Interpreting Provider: Elkin Eric MD on 07/04/2024 9:56 AM us Cinthya Orantes MD DIAGNOSTIC IMAGING ORDNighat JADE Final Result * XR PELVIS 1 OR 2VW (07/04/2024 6:00 AM HEAD ANIMAL TRAINER) Anatomical Region Laterality Modality Pelvis Digital Radiogra phy 07/04/2024 6:34 AM HEAD ANIMAL TRAINER Impressions 07/04/2024 9:54 AM HEAD ANIMAL TRAINER IMPRESSION: No acute fracture identified. Report dictated by Pauline Bravo MD (hvac residential service technician). Elkin Esparza MD have personally reviewed and interpreted this examination/study. > Interpreting Provider: Elkin Eric MD on 07/04/2024 9:54 AM Narrative 07/04/2024 9:54 AM HEAD ANIMAL TRAINER PROCEDURE: XR PELVIS 1 OR 2VW, DATE/TIME OF EXAM: 07/04/2024 6:08 AM, LOCATION [facility] INDICATION: Trauma Fracture suspected COMPARISON: None. FINDINGS: No acute fracture is identified. The femoral heads appear well-seated within their respective acetabula. The pubic symphysis is intact. Bone density and texture are normal. The sacroiliac joints are normal. Procedure Note Elkin Eric MD - 07/04/2024 PROCEDURE: XR PELVIS 1 OR 2VW, DATE/TIME OF EXAM: 07/04/2024 6:08 AM, LOCATION [facility] INDICATION: Trauma Fracture suspected COMPARISON: None. FINDINGS: No acute fracture is identified. The femoral heads appear well-seated within their respective acetabula. The pubic symphysis is intact. Bone density and texture are normal. The sacroiliac joints are normal. IMPRESSION: No acute fracture identified. Report dictated by Pauline Bravo MD (hvac residential service technician). Elkin Esparza MD have personally reviewed and interpreted this examination/study. > Interpreting Provider: Elkin Eric MD on 07/04/2024 9:54 AM us Cinthya Orantes MD DIAGNOSTIC IMAGING HETAL JADE Final Result from Last 3 Months Insurance [employer] MEDICARE ADV HMO & PPO Care Teams Operations Research Analyst Relationship Specialty Start Date End Date Darren Butler DO [address] [place] [phone] PCP - General Internal Medicine 07/05/24
--- OUTSIDE RECORDS SUMMARY | 2024-09-28 15:45 | XMS_ITS | Encounter Summary ---
Author Organization [facility] Address [address] Navarro: Epic [place] [address] Care Team Providers Care Manager Research And Development Name Role Phone Jeremy Carreon MD Primary Care Provider [phone] Encounter Details Date Type Department Care Team (Late st Contact Info) Description 08/18/1992 Outpatient Historical Deb, MD [facility] [address] 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
--- OUTSIDE RECORDS SUMMARY | 2024-09-28 15:45 | XMS_ITS | Encounter Summary ---
Author Organization [facility] Address [address] [place] [address] Care Team Providers Care Recreation Therapist Name Role Phone Jeremy Carreon MD Primary Care Provider [phone] Encounter Details Date Type Department Care Team (Latest Contact Info) Description 12/10/2003 Outpatient Historical HIS [facility] SINAI Boyd, MD [place] [address] [place] [address] HYPERTENSION NOS (Primary Dx) Social History Tobacco Use Types Packs/Day Years Used Date Smoking Tobacco: Never Assessed Sex and Gender Information Value Date Recorded Sex Assigned at Not on file 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
--- OUTSIDE RECORDS SUMMARY | 2024-09-28 15:45 | XMS_ITS | Encounter Summary ---
Author Organization [facility] Address 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
--- OUTSIDE RECORDS SUMMARY | 2024-09-28 15:45 | XMS_ITS | Encounter Summary ---
Author Organization [facility] Address [address] Navarro: Epic [place] [address] Care Team Providers Care Retail Marketing Executive Name Role Phone Jeremy Carreon MD Primary Care Provider [phone] Encounter Details Date Type Department Care Team (Late st Contact Info) Description 12/08/1988 Outpatient Historical Deb, MD [place] [address] [address] [place] [address] Social History Tobacco Use Types Packs/Day Years Used Date Smoking Tobacco: Never Assessed Sex and Gender Information Value Date Recorded Sex Assigned at Not on file Legal Sex Male 3:20 AM DRUM LOADER AND UNLOADER Gender Identity Not on file Sexual Orientation Not on file documented as of this encounter Plan of Treatment Not on file documented as of this encounter Visit Diagnoses Not on filedocumented in this encounter Care Teams Retail Marketing Executive Relationship Specialty Start Date End Date Jeremy Carreon MD [address] [place] [phone] PCP - General Internal Medicine 05/17/19 02/14/23 documented as of this encounter
--- OUTSIDE RECORDS SUMMARY | 2024-09-28 15:45 | XMS_ITS | Encounter Summary ---
Author Organization [facility] Address 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
[2024-09-28 16:32] LABS: Basophils Absolute Auto 0.1 K/mm3 (0.0-0.1); Basophils Percent Auto 0.8 % (0.2-1.2); Eosinophils Absolute Auto 0.4 K/mm3 (0-0.3); Eosinophils Percent Auto 5.7 % (0-4.4); Hematocrit 41.3 % (42.0-52.0); Hemoglobin 12.9 g/dL (14.0-18.0); Immature Granulocyte Absolute 0.02 K/mm3 (0.00-0.031); Immature Granulocyte Percent A 0.3 % (0-0.5); Immature Platelet Fraction Pct 2.9 % (0.9-11.2); Lymphocytes Absolute Auto 1.29 K/mm3 (0.9-3.2); Mean Corpuscular HGB Conc 31.2 g/dl (32-36); Mean Corpuscular Hemoglobin 29.1 pg (26-34); Mean Corpuscular Volume 93.2 fl (80-100); Mean Platelet Volume 10.1 fl (7.4-10.4); Monocytes Absolute Auto 0.6 K/mm3 (0.1-0.6); Monocytes Percent Auto 8.5 % (2.6-8.5); Neutrophils Absolute Auto 4.2 K/mm3 (1.3-6.7); Neutrophils Percent Auto 64.7 % (45.5-73.1); Platelet Count Result 136 k/mm3 (150-375); Red Blood Count 4.43 M/mm3 (4.6-6.20); Red Cell Distribution Width 13.9 % (11.5-14.5); White Blood Count 6.5 K/mm3 (4.5-10.0)
[2024-09-28 16:48] LABS: Alanine Aminotransferase 12 U/L (6-50); Albumin Level 3.4 g/dL (3.5-5.1); Alkaline Phosphatase 67 U/L (38-126); Anion Gap 4 mmol/L (4-12); Aspartate Amino Transferase 20 U/L (17-59); Bilirubin,Total 0.7 mg/dL (0.2-1.3); Blood Urea Nitrogen 29 mg/dL (9-20); Calcium 8.2 mg/dL (8.4-10.2); Carbon Dioxide 27 mmol/L (22-30); Chloride 105 mmol/L (98-107); Estimated Glomerular Filt Rate > 60; Glucose 85 mg/dL (65-110); Potassium 4.5 mmol/L (3.4-5.0); Sodium 136 mmol/L (137-145)
[2024-09-28 16:49] LABS: INR 1.1; Prothrombin Time 14.9 Seconds (11.1-14.7)
[2024-09-28 16:58] LABS: NT Pro B Type Natriuretic Pept 342 pg/mL (19.9-100); Troponin I < 0.012 ng/mL (0.000-0.034)
[2024-09-28 17:46] LABS: Add Urine Microscopic? YES; Appearance Urine Cloudy (Clear); Bacteria Urine 4+ /hpf; Bilirubin Urine Negative (Negative); Blood Urine Negative (Negative); Color Urine Yellow (Yellow); Glucose Urine UA Negative (Negative); Ketones Urine Negative (Negative); Leukocyte Esterase Ur 3+ LEU/UL (Negative); Nitrate Urine Negative (Negative); Non Pathogenic Casts 0-2; Protein Urine Negative (Negative); Specific Grav Ur 1.014 (1.001-1.035); Squamous Epithelial Cell Urine None Seen /hpf (Few); Urobilinogen Urine 0.2 mg/dL (<2.0); WBC Urine >100 /hpf (0-3)
--- NOTE | 2024-09-28 20:39 | PC.NURSE ---
DON updated on pt status.
--- NOTE | 2024-09-28 22:37 | ADMGEN ---
This patient, Crow Smith III, was admitted to [facility] Surg Room 305-02. Patient/family oriented to hospital policies and general routines including ID bracelet, bed and alarms, visiting hours, pain management, procedures, bathroom and other care routines, personal items, smoking policy, room service/diet, and visiting hours. Information on how to activate the Rapid Response Team has been discussed. Patient/Family are encouraged to report perceived risks to care and to ask questions if they do not understand what they are told or what they should do.
--- NOTE | 2024-09-28 22:43 | P.HP_ITS ---
H&P: HPI History of Present Illness Date/Time: 09/28/24 22:43 Chief Complaint: Fall Narrative: 84-year-old male with past medical history of dementia, essential hypertension, BPH, CHF among other comorbidities who presented to the ER via EMS from [facility] after having a ground level fall. The patient who is a poor historian reports that he was ambulating back to his room from the common area when his leg became weak and he fell. He reported that he listed to the side and fell landing in his closet. The patient at the time of my evaluation is alert oriented to person month in year but is confused as to place and cannot name the current president despite stating that he loves the current president. The patient is usually alert orient x2 baseline. The patient reports chronic right hip pain due to prior ORIF but denies any acute hip her leg pain. He has had increased lower extremity swelling but the duration of the swelling is unclear. Initially told me that this swelling is been going on for a week but the knee later reports that is been going on for a couple of months. Patient has edema noted in both feet a with edema extending up through his thighs and into his abdominal wall. He denies any shortness of breath with activity. He tells me that he ambulates but is unsure if he uses a walker but then later he told me that he mostly uses a wheelchair. Mode of the ambulation is not exactly clear. It sounds as if he was walking when he had his fall. He had a skin tear to his left forearm that was bandaged in the ER. CT of the head and neck demonstrated no acute process but significant degenerative disease chest x-ray demonstrated no acute cardiopulmonary process and EKG demonstrated sinus bradycardia with a rate of 47. Patient does have a history of chronic bradycardia. He denies any nausea or vomiting her appetite changes. In the ER UA was suggestive of UTI the patient was started on empiric antibiotic therapy with Rocephin. The patient does report that he has been having weak urinary stream and he is unsure if he is emptying his bladder all the way. He reports that his urine starts and stops. He denies any dysuria. There is no [facility]. Patient does have some suprapubic tenderness on palpation and bladder feels quite distended. Postvoid residual was obtained while I was at bedside and demonstrated greater than 600 mL. Review of Systems 2 Review of Systems: Twelve point review of systems was attempted but reliability of review of systems was limited due to patient's history of dementia [facility] Past Medical History Medical History (Updated 09/28/24 @ 23:09 by Candi Gracia DO) Hypovitaminosis D Basal cell carcinoma of skin Chronic back pain Obstructive sleep apnea CPAP of 8 recommended on polysomnogram 2019 Neuropathy Dyslipidemia Left ventricular diastolic dysfunction, NYHA class 1 Grade 1 diastolic dysfunction with EF of 66 by% noted on echocardiogram from 2019 Essential hypertension Surgical History Surgical History (Updated 09/28/24 @ 22:58 by Candi Gracia DO) History of colonoscopy with polypectomy Multiple events with the most recent May 2017 History of hip surgery (08/14/24) Percutaneous pinning right hip fracture by Dr. 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 He has lived in [facility] since 2020. He reports that he briefly smoked when he was young but according to a prior H&P from 2010 he was smoking half a pack of cigarettes per day at that time. He used to occasionally drink alcohol in moderation but had not done so in many years. He denies history of illicit substance use. Code status: DNR/DNI with IDPA form on chart Healthcare POA: Miguel Boggs ([facility]) who lives in [place]. Smoking packs per day: 0.5 Smoking cigarettes per day: 10.0 Years smoked: 2 Smoking pack-years: 1.00 Smoking status: Former smoker Tobacco type: cigarettes Second hand tobacco smoke exposure: No Smoking end date: 06/06/1960 Alcohol intake: current Drinks per week: 1 Alcohol use details: a glass a wine Substance use: never Substance use type: does not use Do You Feel Safe in your Home?: No Lack of Transportation: No Lack of Food: Never True Current Housing: I Have Housing Concerned About Future Housing: No Difficulty Paying Gas/Electric Bills: No Difficulty Paying for Meds: No Currently Unemployed: No Education: Master's Degree or Higher Difficulty w/ Childcare or Family Care: No Living arrangements: assisted living Additional living arrangements comments: . Lives at [facility]. Occupation/Education: retired Additional occupation/education comments: [employer] Spiritual care concerns: No Agree to blood products: Yes Meds Home Medications and Allergies Home Medications ?Medication ?Instructions ?Recorded ?Confirmed ?Type cholecalciferol (vitamin D3) 50 50 mcg PO DAILY 05/23/20 09/28/24 History mcg (2,000 unit) capsule zinc 50 mg tablet 50 mg PO DAILY 05/23/20 09/28/24 History finasteride 5 mg tablet (Proscar) 5 mg PO QAM #90 tabs 02/26/22 09/28/24 Rx atenolol 25 mg tablet 25 mg PO DAILY #90 tabs 03/08/22 09/28/24 Rx tamsulosin 0.4 mg capsule See Rx Instructions .Route 06/23/22 09/28/24 Rx .COMPLEX #90 caps gabapentin 100 mg capsule 100 mg PO BID #60 caps 05/07/24 09/28/24 Rx ascorbic acid (vitamin C) 500 mg 500 mg PO DAILY 08/14/24 09/28/24 History tablet (Vitamin C) donepezil 5 mg tablet 5 mg PO HS 08/14/24 09/28/24 History fluoxetine 10 mg capsule 10 mg PO QAM 08/14/24 09/28/24 History irbesartan 300 mg tablet 300 mg PO DAILY 08/14/24 09/28/24 History naproxen sodium 220 mg tablet 220 mg PO DAILY 08/14/24 09/28/24 History polyethylene glycol 3350 17 17 g PO .Q daily PRN constipation 08/14/24 09/28/24 History gram/dose oral powder primidone 50 mg tablet 12.5 mg PO HS 08/14/24 09/28/24 History furosemide 20 mg tablet 20 mg PO DAILY 09/28/24 09/28/24 History potassium chloride 20 mEq 20 meq PO DAILY 09/28/24 09/28/24 History tablet,extended release(part/cryst) sulfamethoxazole 800 1 tablet PO BID 09/28/24 09/28/24 History mg-trimethoprim 160 mg tablet Allergies Allergy/AdvReac Type Severity Reaction Status Date / Time amlodipine Allergy Intermediate HIVES, Verified 08/14/24 10:49 ITCHING hydrochlorothiazide Allergy Unknown RASH & Verified 08/14/24 10:49 ITCHING valsartan Allergy Unknown Hives Verified 08/14/24 10:49 Vital Signs Vital Signs - 24 hr 09/28/24 15:30 09/28/24 18:40 09/28/24 19:13 Temperature 97.6 F 97.8 F Pulse Rate 51 L 50 L Respiratory Rate 16 14 Blood Pressure 115/70 123/65 Pulse Oximetry 99 95 100 Oxygen Delivery Room Air 09/28/24 19:14 09/28/24 19:15 09/28/24 20:01 Temperature Pulse Rate Respiratory Rate Blood Pressure 146/75 H 147/78 H Pulse Oximetry 98 97 Oxygen Delivery 09/28/24 20:22 09/28/24 20:38 09/28/24 20:42 Temperature 97.4 F L Pulse Rate 54 L Respiratory Rate 16 Blood Pressure 147/78 H Pulse Oximetry 98 96 94 Oxygen Delivery 09/28/24 21:50 Temperature 97.1 F L Pulse Rate 51 L Respiratory Rate 14 Blood Pressure 143/75 H Pulse Oximetry 98 Oxygen Delivery Exam 2 Narrative: Weight 77.4 kg BMI 23.1 Const: Other: Elderly, well-developed well-nourished, debilitated HENMT: Other: Mucous membranes are dry, no oral pharyngeal erythema, mildly injected conjunctiva of the right lower lid with eversion of the right lower lid, conjunctival edema bilaterally with periorbital edema bilateral right greater than left, fair dentition, head is normocephalic atraumatic Eyes: Other: Please see above Neck: Other: No JVD, 1 right anterior cervical lymph node measuring about 3/4 of an inch, 1 submandibular lymph node measuring about half an inch, neck is held in extension with limited range of motion, but no pain associated to suggest nuchal rigidity Chest: Other: No tenderness to palpation Resp: Other: Clear to auscultation bilaterally, no increased work of breathing Cardio: Other: Regular rate, regular rhythm, 2+ bilateral radial pedal pulses, no JVD GI: Other: Abdominal wall edema, distended bladder up to the umbilicus, suprapubic tenderness, normoactive bowel sounds : Other: Pure wick catheter in place, less than 100 mL of clear dark yellow urine Skin: Other: A bruising to the forearms bilaterally skin tear to the left forearm, pitting edema to the bilateral feet 2 to 3+ with more [place] chronic appearing edema of the calves up into the thighs and buttocks bilaterally Neuro: Other: Alert oriented to person month in year confused as to place and cannot name the current president, the patient responses are blunted and and slow, he has intact sensation of the lower extremities grossly, he has no obvious facial asymmetry but somewhat masked feces Extrem: Other: Pitting edema as discussed above extending up into the thighs and lower abdomen, patient is able to lift legs from the bed but has 4/5 strength on the left and 3/5 strength on the right, no cyanosis, no clubbing, 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 Psych: Other: Pleasant and cooperative, blunted affect, poor judgment and insight H&P: Results Labs Labs: Laboratory Tests 09/28/24 16:26 09/28/24 16:26 09/28/24 09/28/24 16: 17:36 WBC 6.5 RBC 4.43 L Hgb 12.9 L Hct 41.3 L MCV 93.2 MCH 29.1 MCHC 31.2 L RDW 13.9 Plt Count 136 L MPV 10.1 Immature Gran % (Auto) 0.3 Neut % (Auto) 64.7 Lymph % (Auto) 20.0 Mclennan % (Auto) 8.5 Eos % (Auto) 5.7 H Baso % (Auto) 0.8 Lymph # (Auto) 1.29 Mclennan # (Auto) 0.6 Eos # (Auto) 0.4 H Baso # (Auto) 0.1 Abs Immat Gran (auto) 0.02 Absolute Neuts (auto) 4.2 Absolute Nucleated RBC 0.000 Nucleated RBC % 0.0 % Immature Plt Fraction 2.9 PT 14.9 H INR 1.1 APTT 27.0 Sodium 136 L Potassium 4.5 Chloride 105 Carbon Dioxide 27 Anion Gap 4 BUN 29 H Creatinine 1.06 Estim Creat Clear Calc Not Reportable Estimated GFR > 60 Glucose 85 Calcium 8.2 L Total Bilirubin 0.7 AST 20 ALT 12 Alkaline Phosphatase 67 Troponin I < 0.012 NT-Pro-B Natriuret Pep 342 H Total Protein 6.0 L Albumin 3.4 L Urine Color Yellow Urine Appearance Cloudy H Urine pH 6.0 Ur Specific [place] 1.014 Urine Protein Negative Urine Glucose (UA) Negative Urine Ketones Negative Ur Blood (Man) Negative Urine Nitrate Negative Urine Bilirubin Negative Urine Urobilinogen 0.2 Leukocyte Esterase Rfl 3+ H Urine RBC 3-5 H Urine WBC >100 H Ur Squamous Epith Cells None seen Urine Bacteria 4+ H Urine Casts 0-2 Laboratory Tests 09/28/24 16:26 09/28/24 16:26 09/28/24 09/28/24 16:26 17:36 WBC 6.5 RBC 4.43 L Hgb 12.9 L Hct 41.3 L MCV 93.2 MCH 29.1 MCHC 31.2 L RDW 13.9 Plt Count 136 L MPV 10.1 Immature Gran % (Auto) 0.3 Neut % (Auto) 64.7 Lymph % (Auto) 20.0 Mclennan % (Auto) 8.5 Eos % (Auto) 5.7 H Baso % (Auto) 0.8 Lymph # (Auto) 1.29 Mclennan # (Auto) 0.6 Eos # (Auto) 0.4 H Baso # (Auto) 0.1 Abs Immat Gran (auto) 0.02 Absolute Neuts (auto) 4.2 Absolute Nucleated RBC 0.000 Nucleated RBC % 0.0 % Immature Plt Fraction 2.9 PT 14.9 H INR 1.1 APTT 27.0 Sodium 136 L Potassium 4.5 Chloride 105 Carbon Dioxide 27 Anion Gap 4 BUN 29 H Creatinine 1.06 Estim Creat Clear Calc Not Reportable Estimated GFR > 60 Glucose 85 Calcium 8.2 L Total Bilirubin 0.7 AST 20 ALT 12 Alkaline Phosphatase 67 Troponin I < 0.012 NT-Pro-B Natriuret Pep 342 H Total Protein 6.0 L Albumin 3.4 L Urine Color Yellow Urine Appearance Cloudy H Urine pH 6.0 Ur Specific [place] 1.014 Urine Protein Negative Urine Glucose (UA) Negative Urine Ketones Negative Ur Blood (Man) Negative Urine Nitrate Negative Urine Bilirubin Negative Urine Urobilinogen 0.2 Leukocyte Esterase Rfl 3+ H Urine RBC 3-5 H Urine WBC >100 H Ur Squamous Epith Cells None seen Urine Bacteria 4+ H Urine Casts 0-[address] 09/28/24 16:20 Impression: No acute intracranial hemorrhage or suspicious mass effect. Chest X-Ray 09/28/24 16:23 IMPRESSION: No focal infiltrate or effusion. Cervical Spine CT 09/28/24 16:24 Impression: Significant degenerative disease, without acute fracture, as detailed above. Test Date: 2024-09-28 16:23:23 Measurements Intervals [place] Rate: 47 P: 3 NV: 184 QRS: -32 QRSD: 88 T: 10 QT: 437 QTc: 390 Interpretive Statements SINUS BRADYCARDIA LEFT AXIS DEVIATION LOW QRS VOLTAGE IN PRECORDIAL LEADS VOLTAGE CRITERI FOR LVH POSSIBLE ANTERIOR MYOCARDIAL INFARCTION , PROBABLY OLD CONSIDER INFERIOR INFARCT, AGE INDETERMINATE BASELINE ARTIFACT- I, II, III, AVR, AVL, AVF, V1-V6 ABNORMAL ECG Compared to ECG 08/14/2024 06:39:04 HEART RATE HAS DECREASED All imaging and EKGs personally reviewed and interpreted. And unless stated otherwise agree with radiologic and cardiology interpretation. Assessment and Plan Assessment and plan (1) Ground-level fall: Code(s): W18.30XA - Fall on same level, unspecified, initial encounter Status: Acute (2) Abnormal urinalysis: Code(s): R82.90 - Unspecified abnormal findings in urine Status: Acute (3) Acute on chronic urinary retention: Code(s): R33.9 - Retention of urine, unspecified Status: Acute (4) CHF (congestive heart failure): Qualifiers: Heart failure type: unspecified Heart failure chronicity: unspecified Qualified Code(s): I50.9 - Heart failure, unspecified Code(s): I50.9 - Heart failure, unspecified Status: Acute (5) Essential hypertension: Code(s): I10 - Essential (primary) hypertension Status: Chronic (6) Conjunctivitis, right eye: Qualifiers: Conjunctivitis type: chronic Chronic conjunctivitis type: unspecified Qualified Code(s): H10.401 - Unspecified chronic conjunctivitis, right eye Code(s): H10.9 - Unspecified conjunctivitis Status: Acute (7) Anasarca: Code(s): R60.1 - Generalized edema Status: Acute (8) Dementia: Qualifiers: Dementia type: unspecified type Dementia severity: moderate Dementia behavioral or psychological symptom: without behavioral, psychotic, or mood disturbance or anxiety Qualified Code(s): F03.B0 - Unspecified dementia, moderate, without behavioral disturbance, psychotic disturbance, mood disturbance, and anxiety Code(s): F03.90 - Unspecified dementia, unspecified severity, without behavioral disturbance, psychotic disturbance, mood disturbance, and anxiety Status: Acute Plan Patient had a ground level fall but has history of chronic gait instability and ambulates with a walker. No acute injury noted. Will place on fall precautions. Patient does have an abnormal urinalysis without evidence of fever or leukocytosis. He does have significant urinary retention despite being on Flomax and Proscar. Will place a Ivan catheter and monitor strict I&O's. Will await urine culture and will place on empiric antibiotic therapy in till culture results returned. The patient does have history of CHF and has anasarca of the lower extremities with marked edema of the feet. Will obtain echocardiogram to further evaluate cardiac structure and function. Will hold the patient's oral Lasix and switch to IV Lasix. Will need to monitor for postobstructive diuresis. Part of the patient's anasarca could also be due to chronic protein in a nutrition the patient has a known history of he also has hypoalbuminemia which could in part be due to decreased liver synthetic function. Will monitor response to diuretic therapy. Patient does not have a recent echocardiogram with most recent 1 being in 2019. Will obtain echocardiogram to further evaluate cardiac structure and function. Although the patient does deny any history of orthopnea or paroxysmal nocturnal dyspnea. Will resume home antihypertensives. Although less likely will obtain bilateral lower extremity venous Doppler to rule out DVT. Patient has been admitted as observation status. Quality VTE Prophylaxis VTE prophylaxis: pharmacologic ordered (Heparin 5000 units subQ q.12h) Hospitalist [facility] Advance Care Plan I have confirmed that the patient's Advanced Care Plan is present, code status is documented, or surrogate decision maker is listed in patient medical record.: Yes Medication Reconciliation I have utilized all available resources to obtain, update and review the patients current medications (includes all prescriptions, OTC, herbals, cannabis, and nutritional supplements).: Yes
--- NOTE | 2024-09-28 23:14 | PCRCNOTE ---
Pt does not wear his home CPAP, does not want one here
[2024-09-28] MEDS: DONEPEZIL HCL 5 MG TABLET PO (23:15)
[2024-09-28] MEDS: TAMSULOSIN HCL 0.4 MG CAPSULE PO (23:16)
[2024-09-28] MEDS: LIDOCAINE 2% GEL UROJET 10 ML PKG MUCOUS MEM (23:16)
[2024-09-28] MEDS: GABAPENTIN 100 MG CAPSULE PO (23:16)
[2024-09-28] MEDS: FUROSEMIDE INJ 40 MG/4 ML VIAL IV PUSH (23:37)
--- NOTE | 2024-09-29 | ECHO_ITS ---
Patient Info Name: Crow Smith Age: 84 years : 1940 Gender: Male Ht: 72 in Wt: 170 lbs BSA: 1.98 m2 HR: 70 bpm BP: 143 / 73 mmHg Heart Rhythm: Sinus Rhythm Technical Quality: Fair Exam Date: 09/29/2024 11:08 AM Exam Location: Echo Lab Patient Status: Inpatient Admit Date: 09/28/2024 Staff Ordering Physician: Candi Gracia DO Mortgage Underwriter: Tory Rodas RDCS Attending Provider: Dioni Ortega MD Referring Physician: Basil VICTOR; Exam Type: CA echo dop color flow w con Study Info Indications - Edema Complete two-dimensional, color flow and Doppler transthoracic echocardiogram is performed with contrast to opacify the left ventricle and to improve the deliniation of the left ventricle endocardial borders. Contrast/Agitated Saline Contrast/Ag. Saline: Definity Amount: 5.00 ml IV Access Condition: patent with no signs of infiltration and site not used Summary 1. Left ventricular systolic function is normal, estimated at 60-65%. 2. There is mildly increased left ventricular wall thickness. 3. The left ventricular diastolic function is grade I diastolic dysfunction. 4. Right ventricular chamber dimension is moderately enlarged. 5. Right ventricular systolic function is normal. 6. Right atrial chamber dimension is moderately enlarged. 7. No pulmonary hypertension, estimated pulmonary arterial systolic pressure is 21 mmHg. Left Ventricle Left ventricular chamber dimension is normal. Left ventricular systolic function is normal, estimated at 60-65%. There is mildly increased left ventricular wall thickness. Left ventricular septal wall motion is normal. The left ventricular diastolic function is grade I diastolic dysfunction. Right Ventricle Right ventricular chamber dimension is moderately enlarged. Right ventricular systolic function is normal. Left Atria Left atrial chamber dimension is normal. Right Atria Right atrial chamber dimension is moderately enlarged. Aortic Valve The aortic valve is trileaflet. There is no aortic valve sclerosis. There is no aortic valve stenosis. There is no aortic valve regurgitation. Pulmonic Valve The pulmonic valve is normal. There is no pulmonic valve stenosis. There is no pulmonic regurgitation. Mitral Valve The mitral valve has normal leaflets. There is no mitral valve stenosis. There is no mitral valve regurgitation. Tricuspid Valve The tricuspid valve leaflets are normal. There is no significant tricuspid valve stenosis. There is mild tricuspid valve regurgitation. No pulmonary hypertension, estimated pulmonary arterial systolic pressure is 21 mmHg. Pericardium/Pleural The pericardium appears normal. There is no pericardial effusion. Inferior Vena Cava Not well visualized inferior vena cava with >50% collapse upon inspiration consistent with Empty right atrial pressure, 5 mmHg. Aorta The aortic root size at the sinus of Valsalva is normal. The prox ascending aorta size is normal. Left Ventricular Outflow Tract Name Value Normal LVOT 2D LVOT Diameter 3.94 cm LVOT Doppler LVOT Peak Gradient 2 mmHg LVOT Mean Gradient 1 mmHg LVOT VTI 17.12 cm LVOT VTI/AV VTI Ratio 0.67 LVOT Stroke Volume 208.94 ml LVOT CO 5.54 l/min LVOT CI 2.80 L/min/m2 Pulmonic Valve Name Value Normal RVOT Doppler RVOT Peak Gradient 1 mmHg PV Doppler PV Peak Gradient 1 mmHg Mitral Valve Name Value Normal MV Doppler MV Decel [place] 82.97 cm/s2 MV PHT 0 s MV Area (PHT) 1.69 cm2 4.00-5.00 MV Diastolic Function MV E Peak Velocity 37.24 cm/s MV A Peak Velocity 52.28 cm/s MV E/A 0.71 MV Decel Time 0 s MV Annular TDI MV E/e' (Septal) 6.44 <=8.00 MV E/e' (Lateral) 7.48 <=8.00 MV E/e' (Average) 6.96 Tricuspid Valve Name Value Normal TV Regurgitation Doppler TR Peak Velocity 200.46 cm/s TR Peak Gradient 8 mmHg Estimated PAP/RSVP RA Pressure 5 mmHg <=5 PA Systolic Pressure 21 mmHg <36 RV Systolic Pressure 21 mmHg <36 Aortic Valve Name Value Normal AV Doppler AV Peak Velocity 103.58 cm/s AV Peak Gradient 4 mmHg AV Mean Gradient 3 mmHg AV VTI 25.38 cm AV Area (Cont Eq VTI) 8.24 cm2 >=3.00 AV Area (Cont Eq Braden) 4.67 cm2 AV Regurgitation 2D LVOT Area 12.20 cm2 Ventricles Name Value Normal LV Dimensions 2D/MM IVS Diastolic Thickness (2D) 1.09 cm 0.60-1.00 LVID Diastole (2D) 4.24 cm 4.20-5.80 LVIW Diastolic Thickness (2D) 1.02 cm 0.60-1.00 LVID Systole (2D) 2.66 cm 2.50-4.00 LVOT Diameter 3.94 cm LV Mass (2D Cubed) 149.99 g 88.00-224.00 LV Mass Index (2D Cubed) 0.01 g/cm2 0.00-0.01 Relative Wall Thickness (2D) 0.48 LV Fractional Shortening/Ejection Fraction 2D/MM LV Fractional Shortening (2D) 37 % 25-43 LV EF (2D Teicholz) 68 % 52-72 LV Diastolic Volume (4C MOD) 117.48 ml LV EF (4C MOD) 59 % LV Diastolic Volume (2C MOD) 113.80 ml LV EF (2C MOD) 65 % LV Diastolic Volume (BP MOD) 115.17 ml 62.00-150.00 LV Diastolic Volume Index (BP MOD) 0.06 l/m2 0.03-0.07 LV Systolic Volume (BP MOD) 43.87 ml 21.00-61.00 LV Systolic Volume Index (BP MOD) 0.02 l/m2 0.01-0.03 LV EF (BP MOD) 62 % 52-72 LV Diastolic Length (4C) 8.59 cm LV Systolic Length (4C) 7.46 cm LV Stroke Volume (4C MOD) 69.47 ml Atria Name Value Normal LA Dimensions LA Volume (4C A-L) 69.58 ml RA Dimensions RA Area (4C) 32.74 cm2 <=18.00 Report Signatures
[2024-09-29] MEDS: CIPROFLOXACIN HCL 0.3% OP SOLN 2.5 ML BTL 1 DROP RIGHT EYE ×6 (02:00→21:41)
[2024-09-29] MEDS: PRIMIDONE 12.5 MG TABLET PO ×2 (02:00→21:40)
[2024-09-29 06:00] VITALS: BP 143/73; PULSE 70; RESP 18; TEMP 36.1; O2SAT 100
[2024-09-29 08:39] VITALS: O2SAT 97
[2024-09-29] MEDS: FUROSEMIDE INJ 40 MG/4 ML VIAL IV PUSH (09:28)
[2024-09-29] MEDS: FLUoxetine HCL 10 MG CAPSULE PO (09:28)
[2024-09-29] MEDS: POTASSIUM CHLORIDE 20 MEQ ER TABLET PO (09:28)
[2024-09-29] MEDS: CHOLECALCIFEROL 1,000 UNITS TABLET 2000 UNITS PO (09:28)
[2024-09-29 09:29] VITALS: PULSE 70
[2024-09-29] MEDS: FINASTERIDE 5 MG TABLET PO (09:29)
[2024-09-29] MEDS: atenoloL 25 MG TABLET PO (09:29)
[2024-09-29] MEDS: GABAPENTIN 100 MG CAPSULE PO ×2 (09:29→17:35)
[2024-09-29] MEDS: IRBESARTAN 150 MG TABLET 300 MG PO (09:29)
--- NOTE | 2024-09-29 09:37 | PM.IMPN ---
Progress Note: A&P Assessment and Plan (1) Ground-level fall: Code(s): W18.30XA - Fall on same level, unspecified, initial encounter Status: Acute Assessment and Plan: -medications were reviewed -evaluate for incidence of hypoglycemia -avoid any sedatives or anxiolytic -will evaluate for any arrhythmias -we evaluate for postural hypertension -labs were reviewed -head CT scan and cervical spine CT reviewed -physical therapy for balance, gait and strength training -get up and go test (2) Abnormal urinalysis: Code(s): R82.90 - Unspecified abnormal findings in urine Status: Acute Assessment and Plan: Continue ceftriaxone Monitor urine culture Monitor vital (3) Acute on chronic urinary retention: Code(s): R33.9 - Retention of urine, unspecified Status: Acute Assessment and Plan: Continue tamsulosin Continue finasteride (4) CHF (congestive heart failure): Qualifiers: Heart failure chronicity: unspecified Heart failure type: unspecified Qualified Code(s): I50.9 - Heart failure, unspecified Code(s): I50.9 - Heart failure, unspecified Status: Acute Assessment and Plan: Echo pending Lasix 40 b.i.d. IV Strict I&Os Continue potassium 20 mEq p.o. q.d. (5) Essential hypertension: Code(s): I10 - Essential (primary) hypertension Status: Chronic Assessment and Plan: Continue Irbesartan 300 mg PO QD (6) Conjunctivitis, right eye: Qualifiers: Chronic conjunctivitis type: unspecified Conjunctivitis type: chronic Qualified Code(s): H10.401 - Unspecified chronic conjunctivitis, right eye Code(s): H10.9 - Unspecified conjunctivitis Status: Acute Assessment and Plan: Continue ciprofloxacin drops (7) Anasarca: Code(s): R60.1 - Generalized edema Status: Acute Assessment and Plan: As above Will hold Lasix due to low blood pressure (8) Dementia: Qualifiers: Dementia behavioral or psychological symptom: without behavioral, psychotic, or mood disturbance or anxiety Dementia severity: moderate Dementia type: unspecified type Qualified Code(s): F03.B0 - Unspecified dementia, moderate, without behavioral disturbance, psychotic disturbance, mood disturbance, and anxiety Code(s): F03.90 - Unspecified dementia, unspecified severity, without behavioral disturbance, psychotic disturbance, mood disturbance, and anxiety Status: Acute Assessment and Plan: Continue donepezil 5 mg p.o. HS Continue fluoxetine 10 mg p.o. q.d. Subjective Date/time seen: 09/29/24 09:37 Interval history: Interval history:84-year-old male with past medical history of dementia, essential hypertension, BPH, CHF among other comorbidities who presented to the ER via EMS from [facility] living after having a ground level fall. The patient who is a poor historian reports that he was ambulating back to his room from the common area when his leg became weak and he fell. He reported that he listed to the side and fell landing in his closet. The patient reports chronic right hip pain due to prior ORIF but denies any acute hip her leg pain. He had a skin tear to his left forearm that was bandaged in the ER. CT of the head and neck demonstrated no acute process but significant degenerative disease CXR: demonstrated no acute cardiopulmonary process EKG demonstrated sinus bradycardia with a rate of 47. Patient does have a history of chronic bradycardia. UA was suggestive of UTI the patient was started on empiric antibiotic therapy with Rocephin. 09/29/2024: Patient is admitted in the setting of fall, and UTI. . Review of Systems Review of Systems: Twelve point review of systems was attempted but reliability of review of systems was limited due to patient's history of dementia Exam Narrative: Weight 77.4 kg BMI 23.1 Const: Other: Elderly, well-developed well-nourished, debilitated HENMT: Other: Mucous membranes are dry, no oral pharyngeal erythema, mildly injected conjunctiva of the right lower lid with eversion of the right lower lid, conjunctival edema bilaterally with periorbital edema bilateral right greater than left, fair dentition, head is normocephalic atraumatic Eyes: Other: Please see above Neck: Other: No JVD, 1 right anterior cervical lymph node measuring about 3/4 of an inch, 1 submandibular lymph node measuring about half an inch, neck is held in extension with limited range of motion, but no pain associated to suggest nuchal rigidity Chest: Other: No tenderness to palpation Resp: Other: Clear to auscultation bilaterally, no increased work of breathing Cardio: Other: Regular rate, regular rhythm, 2+ bilateral radial pedal pulses, no JVD GI: Other: Abdominal wall edema, distended bladder up to the umbilicus, suprapubic tenderness, normoactive bowel sounds : Other: Pure wick catheter in place, less than 100 mL of clear dark yellow urine Skin: Other: A bruising to the forearms bilaterally skin tear to the left forearm, pitting edema to the bilateral feet 2 to 3+ with more Ivins chronic appearing edema of the calves up into the thighs and buttocks bilaterally Neuro: Other: Alert oriented to person month in year confused as to place and cannot name the current president, the patient responses are blunted and and slow, he has intact sensation of the lower extremities grossly, he has no obvious facial asymmetry but somewhat masked feces Extrem: Other: Pitting edema as discussed above extending up into the thighs and lower abdomen, patient is able to lift legs from the bed but has 4/5 strength on the left and 3/5 strength on the right, no cyanosis, no clubbing, 5/5 paralegal internship strength bilaterally Psych: Other: Pleasant and cooperative, blunted affect, poor judgment and insight Objective Data Vital Signs Vital Signs: Vital Signs - 24 hr 09/28/24 15:30 09/28/24 18:40 09/28/24 19:13 Temperature 97.6 F 97.8 F Pulse Rate 51 L 50 L Respiratory Rate 16 14 Blood Pressure 115/70 123/65 Pulse Oximetry 99 95 100 Oxygen Delivery Room Air 09/28/24 19:14 09/28/24 19:15 09/28/24 20:01 Temperature Pulse Rate Respiratory Rate Blood Pressure 146/75 H 147/78 H Pulse Oximetry 98 97 Oxygen Delivery 09/28/24 20:22 09/28/24 20:38 09/28/24 20:42 Temperature 97.4 F L Pulse Rate 54 L Respiratory Rate 16 Blood Pressure 147/78 H Pulse Oximetry 98 96 94 Oxygen Delivery 09/28/24 21:50 09/29/24 06:00 09/29/24 08:39 Temperature 97.1 F L 97.0 F L Pulse Rate 51 L 70 Respiratory Rate 14 18 Blood Pressure 143/75 H 143/73 H Pulse Oximetry 98 100 97 Oxygen Delivery Room Air 09/29/24 09:29 Temperature Pulse Rate 70 Respiratory Rate Blood Pressure Pulse Oximetry Oxygen Delivery Intake/Output Intake/Output: Intake & Output 09/26/24 09/27/24 09/28/24 09/29/24 23:59 23:59 23:59 23:59 Intake Total 50 200 Output Total 250 3000 Balance -200 -2800 Meds/Results Medications: Active Medications Generic Name Dose Route Start Last Admin Trade Name Laurie PRN Reason Stop Dose Admin Atenolol 25 mg 09/29/24 09:00 09/29/24 09:29 Atenolol 25 Mg Tablet PO 25 mg DAILY KAY Administration Ciprofloxacin 1 drop 09/29/24 01:00 09/29/24 09:35 Ciprofloxacin Hcl 0.3% Op Soln 2.5 Ml Btl RIGHT EYE 1 drop Q4HR KAY Administration Donepezil HCl 5 mg 09/28/24 22:50 09/28/24 23:15 Donepezil Hcl 5 Mg Tablet PO 5 mg HS KAY Administration Finasteride 5 mg 09/29/24 09:00 09/29/24 09:29 Finasteride 5 Mg Tablet PO 5 mg QAM KAY Administration Fluoxetine HCl 10 mg 09/29/24 09:00 09/29/24 09:28 Fluoxetine Hcl 10 Mg Capsule PO 10 mg QAM KAY Administration Furosemide 40 mg 09/28/24 23:20 09/29/24 09:28 Furosemide Inj 40 Mg/4 Ml Vial IV PUSH 40 mg BID KAY Administration Gabapentin 100 mg 09/28/24 22:50 09/29/24 09:29 Gabapentin 100 Mg Capsule PO 100 mg BID KAY Administration Ceftriaxone Sodium 1 gm in 50 mls @ 100 mls/hr 09/29/24 18:00 Rocephin 1 Gm/Ns 50 Ml IVPB Q24H KAY Irbesartan 300 mg 09/29/24 09:00 09/29/24 09:29 Irbesartan 150 Mg Tablet PO 300 mg DAILY KAY Administration Naproxen 220 mg 09/29/24 09:00 Naproxen Sodium 220 Mg Tablet PO DAILY AKY Perflutren Lipid Microsphere 0 ml 09/28/24 22:27 Perflutren Lipid Microspheres 1.5 Ml Vial Diluted To 10 Ml Total Volume IV PUSH 10/01/24 22:27 ONCE PRN adequate visualization Protocol Polyethylene Glycol 17 gm 09/28/24 22:41 Polyethylene Glycol 3350 17 Gm Powd.Pack PO DAILY PRN constipation Potassium Chloride 20 meq 09/29/24 09:00 09/29/24 09:28 Potassium Chloride 20 Meq Er Tablet PO 20 meq DAILY KAY Administration Primidone 12.5 mg 09/28/24 22:45 09/29/24 02:00 Primidone 12.5 Mg Tablet PO 12.5 mg HS KAY Administration Tamsulosin HCl 0.4 mg 09/28/24 22:45 09/28/24 23:16 Tamsulosin Hcl 0.4 Mg Capsule PO 0.4 mg HS KAY Administration Vitamin D 2,000 units 09/29/24 09:00 09/29/24 09:28 Cholecalciferol 1,000 Units Tablet PO 2,000 units DAILY KAY Administration Radiology Results: ITS Impressions Head CT 09/28/24 16:20 Impression: No acute intracranial hemorrhage or suspicious mass effect. Chest X-Ray 09/28/24 16:23 IMPRESSION: No focal infiltrate or effusion. Cervical Spine CT 09/28/24 16:24 Impression: Significant degenerative disease, without acute fracture, as detailed above. Labs Labs: Laboratory Results - last 24 hr 09/28/24 09/28/24 16:26 17:36 WBC 6.5 RBC 4.43 L Hgb 12.9 L Hct 41.3 L MCV 93.2 MCH 29.1 MCHC 31.2 L RDW 13.9 Plt Count 136 L MPV 10.1 Immature Gran % (Auto) 0.3 Neut % (Auto) 64.7 Lymph % (Auto) 20.0 Darke % (Auto) 8.5 Eos % (Auto) 5.7 H Baso % (Auto) 0.8 Lymph # (Auto) 1.29 Darke # (Auto) 0.6 Eos # (Auto) 0.4 H Baso # (Auto) 0.1 Abs Immat Gran (auto) 0.02 Absolute Neuts (auto) 4.2 Absolute Nucleated RBC 0.000 Nucleated RBC % 0.0 % Immature Plt Fraction 2.9 PT 14.9 H INR 1.1 APTT 27.0 Sodium 136 L Potassium 4.5 Chloride 105 Carbon Dioxide 27 Anion Gap 4 BUN 29 H Creatinine 1.06 Estim Creat Clear Calc Not Reportable Estimated GFR > 60 Glucose 85 Calcium 8.2 L Total Bilirubin 0.7 AST 20 ALT 12 Alkaline Phosphatase 67 Troponin I < 0.012 NT-Pro-B Natriuret Pep 342 H Total Protein 6.0 L Albumin 3.4 L Urine Color Yellow Urine Appearance Cloudy H Urine pH 6.0 Ur Specific [place] 1.014 Urine Protein Negative Urine Glucose (UA) Negative Urine Ketones Negative Ur Blood (Man) Negative Urine Nitrate Negative Urine Bilirubin Negative Urine Urobilinogen 0.2 Leukocyte Esterase Rfl 3+ H Urine RBC 3-5 H Urine WBC >100 H Ur Squamous Epith Cells None seen Urine Bacteria 4+ H Urine Casts 0-2 Hospitalist MIPS Advance Care Plan I have confirmed that the patient's Advanced Care Plan is present, code status is documented, or surrogate decision maker is listed in patient medical record.: Yes Medication Reconciliation I have utilized all available resources to obtain, update and review the patients current medications (includes all prescriptions, OTC, herbals, cannabis, and nutritional supplements).: Yes
[2024-09-29] MEDS: NAPROXEN SODIUM 220 MG TABLET PO (09:38)
[2024-09-29] MEDS: PERFLUTREN LIPID MICROSPHERES 1.5 ML VIAL DILUTED TO 10 ML TOTAL VOLUME IV PUSH (12:40)
--- NOTE | 2024-09-29 13:04 | IVDEFINITY ---
Prior to administration of IV Definity the patient was educated on the risks and benefits of the imaging enhancing agent including potential adverse side effects. The patient verbalized understanding. Allergies were verified. No exclusion criteria were identified and at least one of the following inclusion criteria were met: 1) physician request, 2) patient technically difficult to image (per the [place] [employer] guidelines of two or more segments not discernable within the apical view), or 3) questionable left ventricular function. ?
[2024-09-29] MEDS: HEPARIN SODIUM 5,000 UNITS/ML VIAL 5000 UNITS SUB-Q ×2 (13:10→21:40)
[2024-09-29 14:00] VITALS: BP 101/60; PULSE 48; RESP 16; TEMP 36.1; O2SAT 99
[2024-09-29 20:00] VITALS: PULSE 49; RESP 18; O2SAT 100
[2024-09-29 20:38] VITALS: BP 104/55; PULSE 49; RESP 18; TEMP 36.2; O2SAT 100
[2024-09-29] MEDS: DONEPEZIL HCL 5 MG TABLET PO (21:40)
[2024-09-29] MEDS: TAMSULOSIN HCL 0.4 MG CAPSULE PO (21:40)
[2024-09-30] MEDS: HEPARIN SODIUM 5,000 UNITS/ML VIAL 5000 UNITS SUB-Q ×3 (05:56→20:34)
[2024-09-30] MEDS: CIPROFLOXACIN HCL 0.3% OP SOLN 2.5 ML BTL 1 DROP RIGHT EYE ×5 (05:57→20:34)
[2024-09-30 06:00] VITALS: BP 142/68; PULSE 54; RESP 16; TEMP 36.7; O2SAT 98
[2024-09-30 06:10] LABS: Hematocrit 42.3 % (42.0-52.0); Hemoglobin 13.4 g/dL (14.0-18.0); Mean Corpuscular HGB Conc 31.7 g/dl (32-36); Mean Corpuscular Hemoglobin 29.1 pg (26-34); Mean Corpuscular Volume 91.8 fl (80-100); Mean Platelet Volume 10.1 fl (7.4-10.4); Platelet Count Result 135 k/mm3 (150-375); Red Blood Count 4.61 M/mm3 (4.6-6.20); Red Cell Distribution Width 13.7 % (11.5-14.5); White Blood Count 5.9 K/mm3 (4.5-10.0)
[2024-09-30 06:32] LABS: Alanine Aminotransferase 12 U/L (6-50); Albumin Level 3.5 g/dL (3.5-5.1); Alkaline Phosphatase 82 U/L (38-126); Anion Gap 6 mmol/L (4-12); Aspartate Amino Transferase 17 U/L (17-59); Bilirubin,Total 0.6 mg/dL (0.2-1.3); Blood Urea Nitrogen 31 mg/dL (9-20); Calcium 8.2 mg/dL (8.4-10.2); Carbon Dioxide 30 mmol/L (22-30); Chloride 101 mmol/L (98-107); Estimated CRCL calculation 45 ml/min; Estimated Glomerular Filt Rate > 60; Glucose 87 mg/dL (65-110); Potassium 4.2 mmol/L (3.4-5.0); Sodium 137 mmol/L (137-145)
[2024-09-30 06:37] LABS: NT Pro B Type Natriuretic Pept 199 pg/mL (19.9-100)
[2024-09-30] MEDS: CHOLECALCIFEROL 1,000 UNITS TABLET 2000 UNITS PO (08:20)
[2024-09-30] MEDS: FINASTERIDE 5 MG TABLET PO (08:20)
[2024-09-30] MEDS: FLUoxetine HCL 10 MG CAPSULE PO (08:20)
[2024-09-30] MEDS: GABAPENTIN 100 MG CAPSULE PO ×2 (08:20→17:46)
[2024-09-30] MEDS: NAPROXEN SODIUM 220 MG TABLET PO (08:20)
[2024-09-30] MEDS: IRBESARTAN 150 MG TABLET 300 MG PO (08:20)
[2024-09-30] MEDS: POTASSIUM CHLORIDE 20 MEQ ER TABLET PO (08:20)
[2024-09-30] MEDS: atenoloL 25 MG TABLET PO (08:20)
--- NOTE | 2024-09-30 09:26 | PM.IMPN ---
Progress Note: A&P Assessment and Plan (1) Ground-level fall: Code(s): W18.30XA - Fall on same level, unspecified, initial encounter Status: Acute Assessment and Plan: -medications were reviewed -evaluate for incidence of hypoglycemia -avoid any sedatives or anxiolytic -will evaluate for any arrhythmias -we evaluate for postural hypertension -labs were reviewed -head CT scan and cervical spine CT reviewed -physical therapy for balance, gait and strength training -get up and go test (2) Abnormal urinalysis: Code(s): R82.90 - Unspecified abnormal findings in urine Status: Acute Assessment and Plan: Continue ceftriaxone Monitor urine culture Monitor vital (3) Acute on chronic urinary retention: Code(s): R33.9 - Retention of urine, unspecified Status: Acute Assessment and Plan: Continue tamsulosin Continue finasteride (4) CHF (congestive heart failure): Qualifiers: Heart failure chronicity: unspecified Heart failure type: unspecified Qualified Code(s): I50.9 - Heart failure, unspecified Code(s): I50.9 - Heart failure, unspecified Status: Acute Assessment and Plan: Echo pending Continue home medication Lasix 20 p.o. q.d. Strict I&Os Continue potassium 20 mEq p.o. q.d. (5) Essential hypertension: Code(s): I10 - Essential (primary) hypertension Status: Chronic Assessment and Plan: Continue Irbesartan 300 mg PO QD (6) Conjunctivitis, right eye: Qualifiers: Chronic conjunctivitis type: unspecified Conjunctivitis type: chronic Qualified Code(s): H10.401 - Unspecified chronic conjunctivitis, right eye Code(s): H10.9 - Unspecified conjunctivitis Status: Acute Assessment and Plan: Continue ciprofloxacin drops (7) Anasarca: Code(s): R60.1 - Generalized edema Status: Acute Assessment and Plan: As above Will hold Lasix due to low blood pressure (8) Dementia: Qualifiers: Dementia behavioral or psychological symptom: without behavioral, psychotic, or mood disturbance or anxiety Dementia severity: moderate Dementia type: unspecified type Qualified Code(s): F03.B0 - Unspecified dementia, moderate, without behavioral disturbance, psychotic disturbance, mood disturbance, and anxiety Code(s): F03.90 - Unspecified dementia, unspecified severity, without behavioral disturbance, psychotic disturbance, mood disturbance, and anxiety Status: Acute Assessment and Plan: Continue donepezil 5 mg p.o. HS Continue fluoxetine 10 mg p.o. q.d. (9) Bradycardia: Code(s): R00.1 - Bradycardia, unspecified Status: Acute Assessment and Plan: Hold atenolol Subjective Date/time seen: 09/30/24 09:26 Interval history: Interval history:84-year-old male with past medical history of dementia, essential hypertension, BPH, CHF among other comorbidities who presented to the ER via EMS from [facility] after having a ground level fall. The patient who is a poor historian reports that he was ambulating back to his room from the common area when his leg became weak and he fell. He reported that he listed to the side and fell landing in his closet. The patient reports chronic right hip pain due to prior ORIF but denies any acute hip her leg pain. He had a skin tear to his left forearm that was bandaged in the ER. CT of the head and neck demonstrated no acute process but significant degenerative disease CXR: demonstrated no acute cardiopulmonary process EKG demonstrated sinus bradycardia with a rate of 47. Patient does have a history of chronic bradycardia. UA was suggestive of UTI the patient was started on empiric antibiotic therapy with Rocephin. 09/29/2024: Patient is admitted in the setting of fall, and UTI. 09/30/2024: Continue home medication Lasix 20 p.o. q.d. Echo pending. Holding atenolol due to bradycardia. Hydralazine PRN if blood pressure >160/90.Called POA to give update but has automated VM. Review of Systems Review of Systems: Twelve point review of systems was attempted but reliability of review of systems was limited due to patient's history of dementia Exam Narrative: Weight 77.4 kg BMI 23.1 Const: Other: Elderly, well-developed well-nourished, debilitated HENMT: Other: Mucous membranes are dry, no oral pharyngeal erythema, mildly injected conjunctiva of the right lower lid with eversion of the right lower lid, conjunctival edema bilaterally with periorbital edema bilateral right greater than left, fair dentition, head is normocephalic atraumatic Eyes: Other: Please see above Neck: Other: No JVD, 1 right anterior cervical lymph node measuring about 3/4 of an inch, 1 submandibular lymph node measuring about half an inch, neck is held in extension with limited range of motion, but no pain associated to suggest nuchal rigidity Chest: Other: No tenderness to palpation Resp: Other: Clear to auscultation bilaterally, no increased work of breathing Cardio: Other: Regular rate, regular rhythm, 2+ bilateral radial pedal pulses, no JVD GI: Other: Abdominal wall edema, distended bladder up to the umbilicus, suprapubic tenderness, normoactive bowel sounds : Other: Pure wick catheter in place, less than 100 mL of clear dark yellow urine Skin: Other: A bruising to the forearms bilaterally skin tear to the left forearm, pitting edema to the bilateral feet 2 to 3+ with more [place] chronic appearing edema of the calves up into the thighs and buttocks bilaterally Neuro: Other: Alert oriented to person month in year confused as to place and cannot name the current president, the patient responses are blunted and and slow, he has intact sensation of the lower extremities grossly, he has no obvious facial asymmetry but somewhat masked feces Extrem: Other: Pitting edema as discussed above extending up into the thighs and lower abdomen, patient is able to lift legs from the bed but has 4/5 strength on the left and 3/5 strength on the right, no cyanosis, no clubbing, 5/5 concrete smoother strength bilaterally Psych: Other: Pleasant and cooperative, blunted affect, poor judgment and insight Objective Data Vital Signs Vital Signs: Vital Signs - 24 hr 09/29/24 09:29 09/29/24 13:35 09/29/24 14:00 Temperature 96.9 F L Pulse Rate 70 48 L Respiratory Rate 16 Blood Pressure 101/60 Pulse Oximetry 99 Oxygen Delivery Room Air 09/29/24 14:40 09/29/24 20:00 09/29/24 20:38 Temperature 97.1 F L Pulse Rate 49 L 49 L Respiratory Rate 18 18 Blood Pressure 104/55 L Pulse Oximetry 100 100 Oxygen Delivery Room Air Room Air 09/30/24 06:00 Temperature 98.0 F Pulse Rate 54 L Respiratory Rate 16 Blood Pressure 142/68 H Pulse Oximetry 98 Oxygen Delivery Intake/Output Intake/Output: Intake & Output 09/27/24 09/28/24 09/29/24 09/30/24 23:59 23:59 23:59 23:59 Intake Total 50 800 Output Total 250 0460 271 Balance -200 -2300 -200 Meds/Results Medications: Active Medications Generic Name Dose Route Start Last Admin Trade Name Laurie PRN Reason Stop Dose Admin Atenolol 25 mg 09/29/24 09:00 09/30/24 08:20 Atenolol 25 Mg Tablet PO 25 mg DAILY KAY Administration Ciprofloxacin 1 drop 09/29/24 01:00 09/30/24 08:21 Ciprofloxacin Hcl 0.3% Op Soln 2.5 Ml Btl RIGHT EYE 1 drop Q4HR KAY Administration Donepezil HCl 5 mg 09/28/24 22:50 09/29/24 21:40 Donepezil Hcl 5 Mg Tablet PO 5 mg HS KAY Administration Finasteride 5 mg 09/29/24 09:00 09/30/24 08:20 Finasteride 5 Mg Tablet PO 5 mg QAM KAY Administration Fluoxetine HCl 10 mg 09/29/24 09:00 09/30/24 08:20 Fluoxetine Hcl 10 Mg Capsule PO 10 mg QAM KAY Administration Furosemide 40 mg 09/28/24 23:20 09/29/24 09:28 Furosemide Inj 40 Mg/4 Ml Vial IV PUSH 40 mg BID KAY Administration Gabapentin 100 mg 09/28/24 22:50 09/30/24 08:20 Gabapentin 100 Mg Capsule PO 100 mg BID KAY Administration Heparin Sodium (Porcine) 5,000 units 09/29/24 14:00 09/30/24 05:56 Heparin Sodium 5,000 Units/Ml Vial SUB-Q 5,000 units Q8HR KAY Administration Ceftriaxone Sodium 1 gm in 50 mls @ 100 mls/hr 09/29/24 18:00 09/29/24 17:35 Rocephin 1 Gm/Ns 50 Ml IVPB 100 mls/hr Q24H KAY Administration Irbesartan 300 mg 09/29/24 09:00 09/30/24 08:20 Irbesartan 150 Mg Tablet PO 300 mg DAILY KAY Administration Naproxen 220 mg 09/29/24 09:00 09/30/24 08:20 Naproxen Sodium 220 Mg Tablet PO 220 mg DAILY KAY Administration Polyethylene Glycol 17 gm 09/28/24 22:41 Polyethylene Glycol 3350 17 Gm Powd.Pack PO DAILY PRN constipation Potassium Chloride 20 meq 09/29/24 09:00 09/30/24 08:20 Potassium Chloride 20 Meq Er Tablet PO 20 meq DAILY KAY Administration Primidone 12.5 mg 09/28/24 22:45 09/29/24 21:40 Primidone 12.5 Mg Tablet PO 12.5 mg HS KAY Administration Tamsulosin HCl 0.4 mg 09/28/24 22:45 09/29/24 21:40 Tamsulosin Hcl 0.4 Mg Capsule PO 0.4 mg HS KAY Administration Vitamin D 2,000 units 09/29/24 09:00 09/30/24 08:20 Cholecalciferol 1,000 Units Tablet PO 2,000 units DAILY KAY Administration Radiology Results: ITS Impressions Head CT 09/28/24 16:20 Impression: No acute intracranial hemorrhage or suspicious mass effect. Chest X-Ray 09/28/24 16:23 IMPRESSION: No focal infiltrate or effusion. Cervical Spine CT 09/28/24 16:24 Impression: Significant degenerative disease, without acute fracture, as detailed above. Venous Doppler Study 09/29/24 19:10 IMPRESSION: Negative bilateral lower extremity venous US. No deep vein thrombosis. Carotid Doppler Study 09/29/24 19:48 IMPRESSION: 1. 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 2. Antegrade flow demonstrated within both vertebral arteries. Labs Labs: Laboratory Results - last 24 hr 09/30/24 05:36 WBC 5.9 RBC 4.61 Hgb 13.4 L Hct 42.3 MCV 91.8 MCH 29.1 MCHC 31.7 L RDW 13.7 Plt Count 135 L MPV 10.1 % Immature Plt Fraction 3.0 Sodium 137 Potassium 4.2 Chloride 101 Carbon Dioxide 30 Anion Gap 6 BUN 31 H Creatinine 1.15 Estim Creat Clear Calc 45 Estimated GFR > 60 Glucose 87 Calcium 8.2 L Total Bilirubin 0.6 AST 17 ALT 12 Alkaline Phosphatase 82 NT-Pro-B Natriuret Pep 199 H Total Protein 6.0 L Albumin 3.5 Quality VTE Prophylaxis VTE prophylaxis: pharmacologic ordered (Heparin 5000 units subQ q.12h) Hospitalist [facility] Advance Care Plan I have confirmed that the patient's Advanced Care Plan is present, code status is documented, or surrogate decision maker is listed in patient medical record.: Yes Medication Reconciliation I have utilized all available resources to obtain, update and review the patients current medications (includes all prescriptions, OTC, herbals, cannabis, and nutritional supplements).: Yes
[2024-09-30 15:15] VITALS: BP 90/51; PULSE 49; RESP 9; TEMP 36.5; O2SAT 96
[2024-09-30] MEDS: TAMSULOSIN HCL 0.4 MG CAPSULE PO (20:34)
[2024-09-30] MEDS: PRIMIDONE 12.5 MG TABLET PO (20:34)
[2024-09-30] MEDS: DONEPEZIL HCL 5 MG TABLET PO (20:34)
[2024-09-30 21:08] VITALS: BP 105/63; PULSE 50; RESP 16; TEMP 36; O2SAT 98
[2024-10-01 05:33] VITALS: BP 147/74; PULSE 69; RESP 16; TEMP 36.6; O2SAT 98
[2024-10-01] MEDS: HEPARIN SODIUM 5,000 UNITS/ML VIAL 5000 UNITS SUB-Q ×3 (05:33→21:35)
[2024-10-01] MEDS: CIPROFLOXACIN HCL 0.3% OP SOLN 2.5 ML BTL 1 DROP RIGHT EYE ×5 (05:34→21:35)
[2024-10-01] MEDS: IRBESARTAN 150 MG TABLET 300 MG PO (07:54)
[2024-10-01] MEDS: FINASTERIDE 5 MG TABLET PO (07:54)
[2024-10-01] MEDS: FUROSEMIDE 20 MG TABLET PO (07:54)
[2024-10-01] MEDS: FLUoxetine HCL 10 MG CAPSULE PO (07:54)
[2024-10-01] MEDS: CHOLECALCIFEROL 1,000 UNITS TABLET 2000 UNITS PO (07:54)
[2024-10-01] MEDS: GABAPENTIN 100 MG CAPSULE PO ×2 (07:54→17:19)
[2024-10-01] MEDS: NAPROXEN SODIUM 220 MG TABLET PO (07:54)
[2024-10-01] MEDS: POTASSIUM CHLORIDE 20 MEQ ER TABLET PO (07:54)
--- NOTE | 2024-10-01 09:13 | P.PNIM_ITS ---
Progress Note: A&P Assessment and Plan (1) Ground-level fall: Code(s): W18.30XA - Fall on same level, unspecified, initial encounter Status: Acute Assessment and Plan: -medications were reviewed -evaluate for incidence of hypoglycemia -avoid any sedatives or anxiolytic -will evaluate for any arrhythmias -we evaluate for postural hypertension -labs were reviewed -head CT scan and cervical spine CT reviewed -physical therapy for balance, gait and strength training -get up and go test (2) Abnormal urinalysis: Code(s): R82.90 - Unspecified abnormal findings in urine Status: Acute Assessment and Plan: Discontinue ceftriaxone Started on Bactrim Holding Potassium supplement until he finish Bactrim Reviewed urine culture Monitor vital (3) Acute on chronic urinary retention: Code(s): R33.9 - Retention of urine, unspecified Status: Acute Assessment and Plan: Continue tamsulosin Continue finasteride (4) CHF (congestive heart failure): Qualifiers: Heart failure chronicity: unspecified Heart failure type: unspecified Qualified Code(s): I50.9 - Heart failure, unspecified Code(s): I50.9 - Heart failure, unspecified Status: Acute Assessment and Plan: Echo pending Continue home medication Lasix 20 p.o. q.d. Strict I&Os Continue potassium 20 mEq p.o. q.d. (5) Essential hypertension: Code(s): I10 - Essential (primary) hypertension Status: Chronic Assessment and Plan: Continue Irbesartan 300 mg PO QD (6) Conjunctivitis, right eye: Qualifiers: Chronic conjunctivitis type: unspecified Conjunctivitis type: chronic Qualified Code(s): H10.401 - Unspecified chronic conjunctivitis, right eye Code(s): H10.9 - Unspecified conjunctivitis Status: Acute Assessment and Plan: Continue ciprofloxacin drops (7) Anasarca: Code(s): R60.1 - Generalized edema Status: Acute Assessment and Plan: As above Will hold Lasix due to low blood pressure (8) Dementia: Qualifiers: Dementia behavioral or psychological symptom: without behavioral, psychotic, or mood disturbance or anxiety Dementia severity: moderate Dementia type: unspecified type Qualified Code(s): F03.B0 - Unspecified dementia, moderate, without behavioral disturbance, psychotic disturbance, mood disturbance, and anxiety Code(s): F03.90 - Unspecified dementia, unspecified severity, without behavioral disturbance, psychotic disturbance, mood disturbance, and anxiety Status: Acute Assessment and Plan: Continue donepezil 5 mg p.o. HS Continue fluoxetine 10 mg p.o. q.d. (9) Bradycardia: Code(s): R00.1 - Bradycardia, unspecified Status: Acute Assessment and Plan: Hold atenolol Subjective Date/time seen: 10/01/24 09:13 Interval history: Interval history:84-year-old male with past medical history of dementia, essential hypertension, BPH, CHF among other comorbidities who presented to the ER via EMS from [facility] after having a ground level fall. The patient who is a poor historian reports that he was ambulating back to his room from the common area when his leg became weak and he fell. He reported that he listed to the side and fell landing in his closet. The patient reports chronic right hip pain due to prior ORIF but denies any acute hip her leg pain. He had a skin tear to his left forearm that was bandaged in the ER. CT of the head and neck demonstrated no acute process but significant degenerative disease CXR: demonstrated no acute cardiopulmonary process EKG demonstrated sinus bradycardia with a rate of 47. Patient does have a history of chronic bradycardia. UA was suggestive of UTI the patient was started on empiric antibiotic therapy with Rocephin. 09/29/2024: Patient is admitted in the setting of fall, and UTI. 09/30/2024: Continue home medication Lasix 20 p.o. q.d. Echo pending. Holding atenolol due to bradycardia. Hydralazine PRN if blood pressure >160/90.Called POA to give update but has automated VM. 10/01/2024:Holding discharge since patient unable to urinate. If he fails bladder training tonight,will send with [facility] to OR. Discussed with PT/OT and the nurse from his rehab facility who accepted the patient back to the facility by tomorrow. Review of Systems Review of Systems: Twelve point review of systems was attempted but reliability of review of systems was limited due to patient's history of dementia Exam Narrative: Weight 77.4 kg BMI 23.1 Const: Other: Elderly, well-developed well-nourished, debilitated HENMT: Other: Mucous membranes are dry, no oral pharyngeal erythema, mildly injected conjunctiva of the right lower lid with eversion of the right lower lid, conjunctival edema bilaterally with periorbital edema bilateral right greater than left, fair dentition, head is normocephalic atraumatic Eyes: Other: Please see above Neck: Other: No JVD, 1 right anterior cervical lymph node measuring about 3/4 of an inch, 1 submandibular lymph node measuring about half an inch, neck is held in extension with limited range of motion, but no pain associated to suggest nuchal rigidity Chest: Other: No tenderness to palpation Resp: Other: Clear to auscultation bilaterally, no increased work of breathing Cardio: Other: Regular rate, regular rhythm, 2+ bilateral radial pedal pulses, no JVD GI: Other: Abdominal wall edema, distended bladder up to the umbilicus, suprapubic tenderness, normoactive bowel sounds : Other: Pure wick catheter in place, less than 100 mL of clear dark yellow urine Skin: Other: A bruising to the forearms bilaterally skin tear to the left forearm, pitting edema to the bilateral feet 2 to 3+ with more [place] chronic appearing edema of the calves up into the thighs and buttocks bilaterally Neuro: Other: Alert oriented to person month in year confused as to place and cannot name the current president, the patient responses are blunted and and slow, he has intact sensation of the lower extremities grossly, he has no obvious facial asymmetry but somewhat masked feces Extrem: Other: Pitting edema as discussed above extending up into the thighs and lower abdomen, patient is able to lift legs from the bed but has 4/5 strength on the left and 3/5 strength on the right, no cyanosis, no clubbing, 5/5 corrections corporal strength bilaterally Psych: Other: Pleasant and cooperative, blunted affect, poor judgment and insight Objective Data Vital Signs Vital Signs: Vital Signs - 24 hr 09/30/24 15:15 09/30/24 20:00 09/30/24 21:08 Temperature 97.7 F 96.8 F L Pulse Rate 49 L 50 L Respiratory Rate 9 L 16 Blood Pressure 90/51 L 105/63 Pulse Oximetry 96 98 Oxygen Delivery Room Air 10/01/24 05:33 10/01/24 08:00 Temperature 97.9 F Pulse Rate 69 Respiratory Rate 16 Blood Pressure 147/74 H Pulse Oximetry 98 Oxygen Delivery Room Air Intake/Output Intake/Output: Intake & Output 09/28/24 09/29/24 09/30/24 10/01/24 23:59 23:59 23:59 23:59 Intake Total 50 850 720 Output Total 250 9176 1225 325 Balance -200 -2250 -505 -325 Meds/Results Medications: Active Medications Generic Name Dose Route Start Last Admin Trade Name Tomaszq PRN Reason Stop Dose Admin Atenolol 25 mg 09/29/24 09:00 09/30/24 08:20 Atenolol 25 Mg Tablet PO 25 mg DAILY KAY Administration Ciprofloxacin 1 drop 09/29/24 01:00 10/01/24 07:55 Ciprofloxacin Hcl 0.3% Op Soln 2.5 Ml Btl RIGHT EYE 1 drop Q4HR KAY Administration Donepezil HCl 5 mg 09/28/24 22:50 09/30/24 20:34 Donepezil Hcl 5 Mg Tablet PO 5 mg HS KAY Administration Finasteride 5 mg 09/29/24 09:00 10/01/24 07:54 Finasteride 5 Mg Tablet PO 5 mg QAM KAY Administration Fluoxetine HCl 10 mg 09/29/24 09:00 10/01/24 07:54 Fluoxetine Hcl 10 Mg Capsule PO 10 mg QAM KAY Administration Furosemide 20 mg 10/01/24 09:00 10/01/24 07:54 Furosemide 20 Mg Tablet PO 20 mg DAILY KAY Administration Gabapentin 100 mg 09/28/24 22:50 10/01/24 07:54 Gabapentin 100 Mg Capsule PO 100 mg BID KAY Administration Heparin Sodium (Porcine) 5,000 units 09/29/24 14:00 10/01/24 05:33 Heparin Sodium 5,000 Units/Ml Vial SUB-Q 5,000 units Q8HR KAY Administration Hydralazine HCl 10 mg 09/30/24 09:29 Hydralazine Hcl 20 Mg/Ml Vial IV PUSH Q6H PRN Blood Pressure - High Ceftriaxone Sodium 1 gm in 50 mls @ 100 mls/hr 09/29/24 18:00 09/30/24 17:46 Rocephin 1 Gm/Ns 50 Ml IVPB 100 mls/hr Q24H KAY Administration Irbesartan 300 mg 09/29/24 09:00 10/01/24 07:54 Irbesartan 150 Mg Tablet PO 300 mg DAILY KAY Administration Naproxen 220 mg 09/29/24 09:00 10/01/24 07:54 Naproxen Sodium 220 Mg Tablet PO 220 mg DAILY KAY Administration Polyethylene Glycol 17 gm 09/28/24 22:41 Polyethylene Glycol 3350 17 Gm Powd.Pack PO DAILY PRN constipation Potassium Chloride 20 meq 09/29/24 09:00 10/01/24 07:54 Potassium Chloride 20 Meq Er Tablet PO 20 meq DAILY KAY Administration Primidone 12.5 mg 09/28/24 22:45 09/30/24 20:34 Primidone 12.5 Mg Tablet PO 12.5 mg HS KAY Administration Tamsulosin HCl 0.4 mg 09/28/24 22:45 09/30/24 20:34 Tamsulosin Hcl 0.4 Mg Capsule PO 0.4 mg HS KAY Administration Vitamin D 2,000 units 09/29/24 09:00 10/01/24 07:54 Cholecalciferol 1,000 Units Tablet PO 2,000 units DAILY KAY Administration Radiology Results: ITS Impressions Head CT 09/28/24 16:20 Impression: No acute intracranial hemorrhage or suspicious mass effect. Chest X-Ray 09/28/24 16:23 IMPRESSION: No focal infiltrate or effusion. Cervical Spine CT 09/28/24 16:24 Impression: Significant degenerative disease, without acute fracture, as detailed above. Venous Doppler Study 09/29/24 19:10 IMPRESSION: Negative bilateral lower extremity venous US. No deep vein thrombosis. Carotid Doppler Study 09/29/24 19:48 IMPRESSION: 1. 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 2. Antegrade flow demonstrated within both vertebral arteries. Quality VTE Prophylaxis VTE prophylaxis: pharmacologic ordered (Heparin 5000 units subQ q.12h) Hospitalist [facility] Advance Care Plan I have confirmed that the patient's Advanced Care Plan is present, code status is documented, or surrogate decision maker is listed in patient medical record.: Yes Medication Reconciliation I have utilized all available resources to obtain, update and review the patients current medications (includes all prescriptions, OTC, herbals, canna bis, and nutritional supplements).: Yes
[2024-10-01] MEDS: SULFAMETHOXAZOLE/TRIMETHOPRIM 800/160 MG DS TABLET 1 TAB PO ×2 (10:23→21:35)
[2024-10-01 14:00] VITALS: BP 111/56; PULSE 59; RESP 16; TEMP 36.3; O2SAT 97
--- NOTE | 2024-10-01 14:42 | PM.DS ---
DS: Admitting Diagnosis Discharge Date 10/01/2024 Admitting Diagnosis UTI and fall DS: Discharge Diagnosis Discharge Diagnosis (1) Ground-level fall: Code(s): W18.30XA - Fall on same level, unspecified, initial encounter Status: Acute Assessment and Plan: -medications were reviewed -evaluate for incidence of hypoglycemia -avoid any sedatives or anxiolytic -will evaluate for any arrhythmias -we evaluate for postural hypertension -labs were reviewed -head CT scan and cervical spine CT reviewed -physical therapy for balance, gait and strength training -get up and go test (2) Abnormal urinalysis: Code(s): R82.90 - Unspecified abnormal findings in urine Status: Acute Assessment and Plan: Continue ceftriaxone Monitor urine culture Monitor vital (3) Acute on chronic urinary retention: Code(s): R33.9 - Retention of urine, unspecified Status: Acute Assessment and Plan: Continue tamsulosin Continue finasteride (4) CHF (congestive heart failure): Qualifiers: Heart failure type: unspecified Heart failure chronicity: unspecified Qualified Code(s): I50.9 - Heart failure, unspecified Code(s): I50.9 - Heart failure, unspecified Status: Acute Assessment and Plan: Echo pending Continue home medication Lasix 20 p.o. q.d. Strict I&Os Continue potassium 20 mEq p.o. q.d. (5) Essential hypertension: Code(s): I10 - Essential (primary) hypertension Status: Chronic Assessment and Plan: Continue Irbesartan 300 mg PO QD (6) Conjunctivitis, right eye: Qualifiers: Conjunctivitis type: chronic Chronic conjunctivitis type: unspecified Qualified Code(s): H10.401 - Unspecified chronic conjunctivitis, right eye Code(s): H10.9 - Unspecified conjunctivitis Status: Acute Assessment and Plan: Continue ciprofloxacin drops (7) Anasarca: Code(s): R60.1 - Generalized edema Status: Acute Assessment and Plan: As above Will hold Lasix due to low blood pressure (8) Dementia: Qualifiers: Dementia type: unspecified type Dementia severity: moderate Dementia behavioral or psychological symptom: without behavioral, psychotic, or mood disturbance or anxiety Qualified Code(s): F03.B0 - Unspecified dementia, moderate, without behavioral disturbance, psychotic disturbance, mood disturbance, and anxiety Code(s): F03.90 - Unspecified dementia, unspecified severity, without behavioral disturbance, psychotic disturbance, mood disturbance, and anxiety Status: Acute Assessment and Plan: Continue donepezil 5 mg p.o. HS Continue fluoxetine 10 mg p.o. q.d. (9) Bradycardia: Code(s): R00.1 - Bradycardia, unspecified Status: Acute Assessment and Plan: Hold atenolol DS: Summary Hospital Course Hospital Course: 84-year-old male with past medical history of dementia, essential hypertension, BPH, CHF among other comorbidities who presented to the ER via EMS from [facility] after having a ground level fall. The patient who is a poor historian reports that he was ambulating back to his room from the common area when his leg became weak and he fell. He reported that he listed to the side and fell landing in his closet. The patient reports chronic right hip pain due to prior ORIF but denies any acute hip her leg pain. He had a skin tear to his left forearm that was bandaged in the ER. CT of the head and neck demonstrated no acute process but significant degenerative disease CXR: demonstrated no acute cardiopulmonary process EKG demonstrated sinus bradycardia with a rate of 47. Patient does have a history of chronic bradycardia. UA was suggestive of UTI the patient was started on empiric antibiotic therapy with Rocephin. Reviewed urine culture Bactrim p.o. b.i.d. until 0 10/07. Discussed with PT OT. Patient is currently doing well. Nurse from [facility] was present during the evaluation and reports that he will be accepted back to the memory care unit. Currently on bladder training. Will DC the Ivan. Once patient voids he will be discharged Status at Discharge Cognitive/behavioral status at discharge: Stable Time Spent with Patient Time attestation: Total time spent providing and/or coordinating discharge services: 45 minutes Exam Narrative: Weight 77.4 kg BMI 23.1 Const: Other: Elderly, well-developed well-nourished, debilitated HENMT: Other: Mucous membranes are dry, no oral pharyngeal erythema, mildly injected conjunctiva of the right lower lid with eversion of the right lower lid, conjunctival edema bilaterally with periorbital edema bilateral right greater than left, fair dentition, head is normocephalic atraumatic Eyes: Other: Please see above Neck: Other: No JVD, 1 right anterior cervical lymph node measuring about 3/4 of an inch, 1 submandibular lymph node measuring about half an inch, neck is held in extension with limited range of motion, but no pain associated to suggest nuchal rigidity Chest: Other: No tenderness to palpation Resp: Other: Clear to auscultation bilaterally, no increased work of breathing Cardio: Other: Regular rate, regular rhythm, 2+ bilateral radial pedal pulses, no JVD GI: Other: Abdominal wall edema, distended bladder up to the umbilicus, suprapubic tenderness, normoactive bowel sounds : Other: Pure wick catheter in place, less than 100 mL of clear dark yellow urine Skin: Other: A bruising to the forearms bilaterally skin tear to the left forearm, pitting edema to the bilateral feet 2 to 3+ with more [place] chronic appearing edema of the calves up into the thighs and buttocks bilaterally Neuro: Other: Alert oriented to person month in year confused as to place and cannot name the current president, the patient responses are blunted and and slow, he has intact sensation of the lower extremities grossly, he has no obvious facial asymmetry but somewhat masked feces Extrem: Other: Pitting edema as discussed above extending up into the thighs and lower abdomen, patient is able to lift legs from the bed but has 4/5 strength on the left and 3/5 strength on the right, no cyanosis, no clubbing, 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 Record and bring into your doctor for review. Call your doctor if your blood pressure is greater than 180/110 or less than 90/45. Walk with cane or other assist device. Take precautions to avoid falls. Rise slowly from a lying or sitting position. Pause before standing or walking. Contact your doctor or call 911 and come to the Emergency Room if you have any type of trauma, lightheadedness with standing or other worrisome symptoms. Avoid NSAIDs (ibuprofen, naproxen, Aleve). Tylenol is safe to take. Follow-up with your primary care provider in 1-2 weeks. Please call for appointment. Follow-up with Cardiology in 2-4 weeks. Please call for an appointment. Thank you for using [facility] for your health care needs. Patient Instructions: Antibiotic Form Patient Language: [place] Stand Alone Forms: General Discharge Information Discharge Medications: New ciprofloxacin HCl 0.3 % Drops 1 drp RIGHT EYE Q4HR Qty: 30 0RF sulfamethoxazole-trimethoprim 800-160 mg Tablet 1 tablet PO Q12HR Qty: 14 0RF Rx Instructions: Please complete the course on 10/07/2024 Continued zinc 50 mg tablet 50 mg PO DAILY cholecalciferol (vitamin D3) 50 mcg (2,000 unit) capsule 50 mcg PO DAILY furosemide 20 mg tablet 20 mg PO DAILY gabapentin 100 mg capsule 100 mg PO BID Qty: 60 0RF fluoxetine 10 mg capsule 10 mg PO QAM irbesartan 300 mg tablet 300 mg PO DAILY naproxen sodium 220 mg tablet 220 mg PO DAILY ascorbic acid (vitamin C) [Vitamin C] 500 mg tablet 500 mg PO DAILY primidone 50 mg tablet 12.5 mg PO HS donepezil 5 mg tablet 5 mg PO HS polyethylene glycol 3350 17 gram/dose powder 17 g PO .Q daily PRN (Reason: constipation) finasteride [Proscar] 5 mg tablet 5 mg PO QAM Qty: 90 1RF tamsulosin 0.4 mg capsule See Rx Instructions .ROUTE .COMPLEX Qty: 90 1RF Dose Instruction: TAKE ONE CAPSULE BY MOUTH ONCE DAILY Patient Comments: Pt. states he takes at night Rx Instructions: TAKE ONE CAPSULE BY MOUTH ONCE DAILY Held potassium chloride 20 mEq tablet,ER particles/crystals 20 meq PO DAILY Hold Instructions: Resume on 10/08/24. Holding potassium chloride 20 mEq until his antibiotic is completed. Bactrim can cause hyperkalemia. atenolol 25 mg tablet 25 mg PO DAILY Qty: 90 1RF Hold Instructions: Resume on 10/08/24. Holding atenolol due to bradycardia please discuss with your PCP and continue if needed Discontinued sulfamethoxazole-trimethoprim 800-160 mg tablet 1 tablet PO BID Date of admission: 09/30/24 14:11 Primary Care Provider: UNKNOWN,DOCTOR Admitting Provider: Ortega,Dioni A. Attending physician on admission: Dioni Ortega Condition: Stable
[2024-10-01] MEDS: TAMSULOSIN HCL 0.4 MG CAPSULE PO (21:35)
[2024-10-01] MEDS: DONEPEZIL HCL 5 MG TABLET PO (21:35)
[2024-10-01] MEDS: PRIMIDONE 12.5 MG TABLET PO (21:35)
[2024-10-01 22:00] VITALS: BP 115/58; PULSE 55; RESP 20; TEMP 35.9; O2SAT 96
[2024-10-02] MEDS: CIPROFLOXACIN HCL 0.3% OP SOLN 2.5 ML BTL 1 DROP RIGHT EYE ×6 (01:09→21:11)
[2024-10-02 05:00] VITALS: BP 121/57; PULSE 57; RESP 20; TEMP 35.7; O2SAT 95
[2024-10-02] MEDS: HEPARIN SODIUM 5,000 UNITS/ML VIAL 5000 UNITS SUB-Q ×3 (05:03→21:13)
[2024-10-02 08:30] VITALS: BP 126/71; PULSE 57; RESP 20; TEMP 35.7; O2SAT 94
[2024-10-02] MEDS: IRBESARTAN 150 MG TABLET 300 MG PO (08:37)
[2024-10-02] MEDS: GABAPENTIN 100 MG CAPSULE PO ×2 (08:38→16:19)
[2024-10-02] MEDS: FUROSEMIDE 20 MG TABLET PO (08:40)
[2024-10-02] MEDS: NAPROXEN SODIUM 220 MG TABLET PO (08:40)
[2024-10-02] MEDS: FLUoxetine HCL 10 MG CAPSULE PO (08:40)
[2024-10-02] MEDS: SULFAMETHOXAZOLE/TRIMETHOPRIM 800/160 MG DS TABLET 1 TAB PO ×2 (08:40→21:13)
[2024-10-02] MEDS: FINASTERIDE 5 MG TABLET PO (08:41)
[2024-10-02] MEDS: CHOLECALCIFEROL 1,000 UNITS TABLET 2000 UNITS PO (08:41)
[2024-10-02 14:52] VITALS: BP 99/51
--- NOTE | 2024-10-02 15:24 | PM.IMPN ---
Progress Note: A&P Assessment and Plan (1) Ground-level fall: Code(s): W18.30XA - Fall on same level, unspecified, initial encounter Status: Acute Assessment and Plan: -medications were reviewed -evaluate for incidence of hypoglycemia -avoid any sedatives or anxiolytic -will evaluate for any arrhythmias -we evaluate for postural hypertension -labs were reviewed -head CT scan and cervical spine CT reviewed -physical therapy for balance, gait and strength training -get up and go test (2) Abnormal urinalysis: Code(s): R82.90 - Unspecified abnormal findings in urine Status: Acute Assessment and Plan: Discontinue ceftriaxone Started on Bactrim Holding Potassium supplement until he finish Bactrim Reviewed urine culture Monitor vital (3) Acute on chronic urinary retention: Code(s): R33.9 - Retention of urine, unspecified Status: Acute Assessment and Plan: Continue tamsulosin Continue finasteride (4) CHF (congestive heart failure): Qualifiers: Heart failure type: unspecified Heart failure chronicity: unspecified Qualified Code(s): I50.9 - Heart failure, unspecified Code(s): I50.9 - Heart failure, unspecified Status: Acute Assessment and Plan: Echo pending Continue home medication Lasix 20 p.o. q.d. Strict I&Os Continue potassium 20 mEq p.o. q.d. (5) Essential hypertension: Code(s): I10 - Essential (primary) hypertension Status: Chronic Assessment and Plan: Continue Irbesartan 300 mg PO QD (6) Conjunctivitis, right eye: Qualifiers: Conjunctivitis type: chronic Chronic conjunctivitis type: unspecified Qualified Code(s): H10.401 - Unspecified chronic conjunctivitis, right eye Code(s): H10.9 - Unspecified conjunctivitis Status: Acute Assessment and Plan: Continue ciprofloxacin drops (7) Anasarca: Code(s): R60.1 - Generalized edema Status: Acute Assessment and Plan: As above Will hold Lasix due to low blood pressure (8) Dementia: Qualifiers: Dementia type: unspecified type Dementia severity: moderate Dementia behavioral or psychological symptom: without behavioral, psychotic, or mood disturbance or anxiety Qualified Code(s): F03.B0 - Unspecified dementia, moderate, without behavioral disturbance, psychotic disturbance, mood disturbance, and anxiety Code(s): F03.90 - Unspecified dementia, unspecified severity, without behavioral disturbance, psychotic disturbance, mood disturbance, and anxiety Status: Acute Assessment and Plan: Continue donepezil 5 mg p.o. HS Continue fluoxetine 10 mg p.o. q.d. (9) Bradycardia: Code(s): R00.1 - Bradycardia, unspecified Status: Acute Assessment and Plan: Hold atenolol Plan DVT prophylaxis on Sq Lovenox Subjective Date/time seen: 10/02/24 15:24 Interval history: Patient slow to respond at bedside, however appears to Alert and oriented with appropriate responses failed voiding trial and awaiting SNF placement Review of Systems Review of Systems: Twelve point review of systems was attempted but reliability of review of systems was limited due to patient's history of dementia Exam Narrative: Weight 77.4 kg BMI 23.1 Const: Other: Elderly, well-developed well-nourished, debilitated HENMT: Other: Mucous membranes are dry, no oral pharyngeal erythema, mildly injected conjunctiva of the right lower lid with eversion of the right lower lid, conjunctival edema bilaterally with periorbital edema bilateral right greater than left, fair dentition, head is normocephalic atraumatic Eyes: Other: Please see above Neck: Other: No JVD, 1 right anterior cervical lymph node measuring about 3/4 of an inch, 1 submandibular lymph node measuring about half an inch, neck is held in extension with limited range of motion, but no pain associated to suggest nuchal rigidity Chest: Other: No tenderness to palpation Resp: Other: Clear to auscultation bilaterally, no increased work of breathing Cardio: Other: Regular rate, regular rhythm, 2+ bilateral radial pedal pulses, no JVD GI: Other: Abdominal wall edema, distended bladder up to the umbilicus, suprapubic tenderness, normoactive bowel sounds : Other: Pure wick catheter in place, less than 100 mL of clear dark yellow urine Skin: Other: A bruising to the forearms bilaterally skin tear to the left forearm, pitting edema to the bilateral feet 2 to 3+ with more [place] chronic appearing edema of the calves up into the thighs and buttocks bilaterally Neuro: Other: Alert oriented to person month in year confused as to place and cannot name the current president, the patient responses are blunted and and slow, he has intact sensation of the lower extremities grossly, he has no obvious facial asymmetry but somewhat masked feces Extrem: Other: Pitting edema as discussed above extending up into the thighs and lower abdomen, patient is able to lift legs from the bed but has 4/5 strength on the left and 3/5 strength on the right, no cyanosis, no clubbing, 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 Psych: Other: Pleasant and cooperative, blunted affect, poor judgment and insight Objective Data Vital Signs Vital Signs: Vital Signs - 24 hr 10/01/24 20:00 10/01/24 22:00 10/02/24 05:00 Temperature 96.6 F L 96.2 F L Pulse Rate 55 L 57 L Respiratory Rate 20 20 Blood Pressure 115/58 L 121/57 L Pulse Oximetry 96 95 Oxygen Delivery Room Air 10/02/24 08:00 10/02/24 08:30 10/02/24 14:52 Temperature 96.2 F L Pulse Rate 57 L Respiratory Rate 20 Blood Pressure 126/71 99/51 L Pulse Oximetry 94 Oxygen Delivery Room Air Intake/Output Intake/Output: Intake & Output 09/29/24 09/30/24 10/01/24 10/02/24 23:59 23:59 23:59 23:59 Intake Total 829 799 0519 1289 Output Total 3100 1225 1075 675 Balance -2250 -505 602 614 Meds/Results Medications: Active Medications Generic Name Dose Route Start Last Admin Trade Name Freq PRN Reason Stop Dose Admin Atenolol 25 mg 09/29/24 09:00 09/30/24 08:20 Atenolol 25 Mg Tablet PO 25 mg DAILY KAY Administration Ciprofloxacin 1 drop 09/29/24 01:00 10/02/24 13:28 Ciprofloxacin Hcl 0.3% Op Soln 2.5 Ml Btl RIGHT EYE 1 drop Q4HR KAY Administration Donepezil HCl 5 mg 09/28/24 22:50 10/01/24 21:35 Donepezil Hcl 5 Mg Tablet PO 5 mg HS KAY Administration Finasteride 5 mg 09/29/24 09:00 10/02/24 08:41 Finasteride 5 Mg Tablet PO 5 mg QAM KAY Administration Fluoxetine HCl 10 mg 09/29/24 09:00 10/02/24 08:40 Fluoxetine Hcl 10 Mg Capsule PO 10 mg QAM KAY Administration Furosemide 20 mg 10/01/24 09:00 10/02/24 08:40 Furosemide 20 Mg Tablet PO 20 mg DAILY KAY Administration Gabapentin 100 mg 09/28/24 22:50 10/02/24 08:38 Gabapentin 100 Mg Capsule PO 100 mg BID KAY Administration Heparin Sodium (Porcine) 5,000 units 09/29/24 14:00 10/02/24 13:28 Heparin Sodium 5,000 Units/Ml Vial SUB-Q 5,000 units Q8HR KAY Administration Hydralazine HCl 10 mg 09/30/24 09:29 Hydralazine Hcl 20 Mg/Ml Vial IV PUSH Q6H PRN Blood Pressure - High Irbesartan 300 mg 09/29/24 09:00 10/02/24 08:37 Irbesartan 150 Mg Tablet PO 300 mg DAILY KAY Administration Naproxen 220 mg 09/29/24 09:00 10/02/24 08:40 Naproxen Sodium 220 Mg Tablet PO 220 mg DAILY KAY Administration Polyethylene Glycol 17 gm 09/28/24 22:41 Polyethylene Glycol 3350 17 Gm Powd.Pack PO DAILY PRN constipation Potassium Chloride 20 meq 09/29/24 09:00 10/01/24 07:54 Potassium Chloride 20 Meq Er Tablet PO 20 meq DAILY KAY Administration Primidone 12.5 mg 09/28/24 22:45 10/01/24 21:35 Primidone 12.5 Mg Tablet PO 12.5 mg HS KAY Administration Tamsulosin HCl 0.4 mg 09/28/24 22:45 10/01/24 21:35 Tamsulosin Hcl 0.4 Mg Capsule PO 0.4 mg HS KAY Administration Trimethoprim/Sulfamethoxazole 1 tab 10/01/24 10:00 10/02/24 08:40 Sulfamethoxazole/Trimethoprim 800/160 Mg Ds Tablet PO 10/07/24 21:01 1 tab Q12HR KAY Administration Vitamin D 2,000 units 09/29/24 09:00 10/02/24 08:41 Cholecalciferol 1,000 Units Tablet PO 2,000 units DAILY KAY Administration Radiology Results: ITS Impressions Head CT 09/28/24 16:20 Impression: No acute intracranial hemorrhage or suspicious mass effect. Chest X-Ray 09/28/24 16:23 IMPRESSION: No focal infiltrate or effusion. Cervical Spine CT 09/28/24 16:24 Impression: Significant degenerative disease, without acute fracture, as detailed above. Venous Doppler Study 09/29/24 19:10 IMPRESSION: Negative bilateral lower extremity venous US. No deep vein thrombosis. Carotid Doppler Study 09/29/24 19:48 IMPRESSION: 1. 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 2. Antegrade flow demonstrated within both vertebral arteries. Quality VTE Prophylaxis VTE prophylaxis: pharmacologic ordered (Heparin 5000 units subQ q.12h)
[2024-10-02 20:00] VITALS: PULSE 57; RESP 20; O2SAT 94
[2024-10-02] MEDS: PRIMIDONE 12.5 MG TABLET PO (21:13)
[2024-10-02] MEDS: DONEPEZIL HCL 5 MG TABLET PO (21:13)
[2024-10-02] MEDS: TAMSULOSIN HCL 0.4 MG CAPSULE PO (21:13)
[2024-10-02 21:15] VITALS: BP 151/81; PULSE 54; RESP 20; TEMP 36.5; O2SAT 99
[2024-10-03] MEDS: CIPROFLOXACIN HCL 0.3% OP SOLN 2.5 ML BTL 1 DROP RIGHT EYE ×4 (05:37→16:04)
[2024-10-03] MEDS: HEPARIN SODIUM 5,000 UNITS/ML VIAL 5000 UNITS SUB-Q ×2 (05:37→13:36)
[2024-10-03 06:00] VITALS: BP 153/73; PULSE 51; RESP 20; TEMP 36.1; O2SAT 99
[2024-10-03 07:53] LABS: Basophils Absolute Auto 0.1 K/mm3 (0.0-0.1); Basophils Percent Auto 1.1 % (0.2-1.2); Eosinophils Absolute Auto 0.2 K/mm3 (0-0.3); Hemoglobin 13.7 g/dL (14.0-18.0); Immature Granulocyte Absolute 0.01 K/mm3 (0.00-0.031); Immature Granulocyte Percent A 0.2 % (0-0.5); Immature Platelet Fraction Pct 3.6 % (0.9-11.2); Lymphocytes Absolute Auto 1.23 K/mm3 (0.9-3.2); Lymphocytes Percent Auto 26.9 % (18.3-44.2); Mean Corpuscular HGB Conc 31.1 g/dl (32-36); Mean Corpuscular Hemoglobin 28.9 pg (26-34); Mean Corpuscular Volume 92.8 fl (80-100); Mean Platelet Volume 10.6 fl (7.4-10.4); Monocytes Absolute Auto 0.3 K/mm3 (0.1-0.6); Monocytes Percent Auto 7.2 % (2.6-8.5); Neutrophils Absolute Auto 2.7 K/mm3 (1.3-6.7); Neutrophils Percent Auto 59.6 % (45.5-73.1); Platelet Count Result 119 k/mm3 (150-375); Red Blood Count 4.74 M/mm3 (4.6-6.20); Red Cell Distribution Width 13.4 % (11.5-14.5); White Blood Count 4.6 K/mm3 (4.5-10.0)
[2024-10-03 07:59] LABS: Alanine Aminotransferase 10 U/L (6-50); Albumin Level 3.6 g/dL (3.5-5.1); Alkaline Phosphatase 85 U/L (38-126); Anion Gap 6 mmol/L (4-12); Aspartate Amino Transferase 16 U/L (17-59); Bilirubin,Total 0.5 mg/dL (0.2-1.3); Blood Urea Nitrogen 29 mg/dL (9-20); Calcium 8.4 mg/dL (8.4-10.2); Carbon Dioxide 28 mmol/L (22-30); Chloride 103 mmol/L (98-107); Estimated CRCL calculation 41 ml/min; Estimated Glomerular Filt Rate 54; Glucose 82 mg/dL (65-110); Magnesium 2.4 mg/dL (1.6-2.3); Potassium 4.6 mmol/L (3.4-5.0); Sodium 137 mmol/L (137-145)
[2024-10-03] MEDS: FUROSEMIDE 20 MG TABLET PO (09:16)
[2024-10-03] MEDS: FLUoxetine HCL 10 MG CAPSULE PO (09:16)
[2024-10-03] MEDS: CHOLECALCIFEROL 1,000 UNITS TABLET 2000 UNITS PO (09:16)
[2024-10-03] MEDS: NAPROXEN SODIUM 220 MG TABLET PO (09:16)
[2024-10-03] MEDS: GABAPENTIN 100 MG CAPSULE PO ×2 (09:16→16:09)
[2024-10-03] MEDS: IRBESARTAN 150 MG TABLET 300 MG PO (09:16)
[2024-10-03] MEDS: FINASTERIDE 5 MG TABLET PO (09:16)
[2024-10-03] MEDS: SULFAMETHOXAZOLE/TRIMETHOPRIM 800/160 MG DS TABLET 1 TAB PO (09:16)
[2024-10-03] MEDS: ENOXAPARIN 40 MG/0.4 ML SYRINGE SUB-Q (09:17)
--- NOTE | 2024-10-03 12:56 | P.DS_ITS ---
DS: Admitting Diagnosis Discharge Date 10/03/24 Admitting Diagnosis Fall DS: Discharge Diagnosis Discharge Diagnosis (1) UTI (urinary tract infection): Code(s): N39.0 - Urinary tract infection, site not specified Status: Acute DS: Summary Hospital Course Hospital Course: 84-year-old male with past medical history of dementia, essential hypertension, BPH, CHF among other comorbidities who presented to the ER via EMS from [facility] after having a ground level fall. CT head and cervical spine unremarkable. PT/OT evaluated adn recommended SNF placement. He was managed for bradycardia, Atenolol was discontinued adn patient will follow up PCP outpatient. ESBL UTI urine culture and sensitivity reviewed and discharged on 3 more days of Bactrim. KCl and Irbesatan held for this duration. BPH with urinary retention patient failed voiding trial. continue Finasteride and Tamsulosin, referred to Urology for outpatient follow up. Continue home Lasix, ECHO showed normal EF with grade I diastolic. continue f/u wiht primary cardiology. F/u with PCP in 3-5 days, F/u with referral to Urology adn f/u with primary cardiology. Time Spent with Patient Time attestation: Total time spent providing and/or coordinating discharge services: DS: Data Data Completed and Pending Labs on day of discharge: Labs from last 24 hours 10/03/24 06:26 WBC 4.6 RBC 4.74 Hgb 13.7 L Hct 44.0 MCV 92.8 MCH 28.9 MCHC 31.1 L RDW 13.4 Plt Count 119 L MPV 10.6 H Immature Gran % (Auto) 0.2 Neut % (Auto) 59.6 Lymph % (Auto) 26.9 [place] % (Auto) 7.2 Eos % (Auto) 5.0 H Baso % (Auto) 1.1 Lymph # (Auto) 1.23 [place] # (Auto) 0.3 Eos # (Auto) 0.2 Baso # (Auto) 0.1 Abs Immat Gran (auto) 0.01 Absolute Neuts (auto) 2.7 Absolute Nucleated RBC 0.000 Nucleated RBC % 0.0 % Immature Plt Fraction 3.6 Sodium 137 Potassium 4.6 Chloride 103 Carbon Dioxide 28 Anion Gap 6 BUN 29 H Creatinine 1.28 Estim Creat Clear Calc 41 Estimated GFR 54 L Glucose 82 Calcium 8.4 Magnesium 2.4 H Total Bilirubin 0.5 AST 16 L ALT 10 Alkaline Phosphatase 85 Total Protein 6.0 L Albumin 3.6 Discharge Plan Discharge Attending physician on discharge: Derrek Delong Discharging Clinician: Derrek Delong Anticipated Discharge Date/Time: 10/01/24 14:46 Patient Disposition: [facility]/Asst Living Activity: as tolerated Diet: heart healthy Discharge Instructions: Please complete your antibiotic until 10/07/2024 Check blood pressure 1 to 2 times a day. Record and bring into your doctor for review. Call your doctor if your blood pressure is greater than 180/110 or less than 90/45. Walk with cane or other assist device. Take precautions to avoid falls. Rise slowly from a lying or sitting position. Pause before standing or walking. Contact your doctor or call 911 and come to the Emergency Room if you have any type of trauma, lightheadedness with standing or other worrisome symptoms. Avoid NSAIDs (ibuprofen, naproxen, Aleve). Tylenol is safe to take. Follow-up with your primary care provider in 1-2 weeks. Please call for appointment. Follow-up with Cardiology in 2-4 weeks. Please call for an appointment. Thank you for using [facility] for your health care needs. Patient Instructions: Antibiotic Form Patient Language: Kisw[place]ili Stand Alone Forms: General Discharge Information Follow-up/Referrals: UNKNOWN,DOCTOR [Primary Care Provider] - (F/u with PCP in 3-5 days ) Preethi Harmon MD [Physician] - (urinary retention.) Discharge Medications: New ciprofloxacin HCl 0.3 % Drops 1 drp RIGHT EYE Q4HR 10 Days Qty: 15 0RF sulfamethoxazole-trimethoprim 800-160 mg Tablet 1 tablet PO Q12HR 3 Days Qty: 14 0RF Rx Instructions: Please complete the course on 10/07/2024 Continued zinc 50 mg tablet 50 mg PO DAILY cholecalciferol (vitamin D3) 50 mcg (2,000 unit) capsule 50 mcg PO DAILY furosemide 20 mg tablet 20 mg PO DAILY gabapentin 100 mg capsule 100 mg PO BID Qty: 60 0RF fluoxetine 10 mg capsule 10 mg PO QAM naproxen sodium 220 mg tablet 220 mg PO DAILY ascorbic acid (vitamin C) [Vitamin C] 500 mg tablet 500 mg PO DAILY primidone 50 mg tablet 12.5 mg PO HS donepezil 5 mg tablet 5 mg PO HS polyethylene glycol 3350 17 gram/dose powder 17 g PO .Q daily PRN (Reason: constipation) finasteride [Proscar] 5 mg tablet 5 mg PO QAM Qty: 90 1RF tamsulosin 0.4 mg capsule See Rx Instructions .ROUTE .COMPLEX Qty: 90 1RF Dose Instruction: TAKE ONE CAPSULE BY MOUTH ONCE DAILY Patient Comments: Pt. states he takes at night Rx Instructions: TAKE ONE CAPSULE BY MOUTH ONCE DAILY Held potassium chloride 20 mEq tablet,ER particles/crystals 20 meq PO DAILY Hold Instructions: Resume on 10/08/24. hold until 10/08/24 irbesartan 300 mg tablet 300 mg PO DAILY Hold Instructions: Resume on 10/06/24. Discontinued sulfamethoxazole-trimethoprim 800-160 mg tablet 1 tablet PO BID atenolol 25 mg tablet 25 mg PO DAILY Qty: 90 1RF Date of admission: 09/30/24 14:11 Primary Care Provider: UNKNOWN,DOCTOR Admitting Provider: Dioni Ortega Attending physician on admission: Jeanette Calvert Condition: Stable
--- NOTE | 2024-10-03 13:41 | P.CDI_ITS ---
CDI Query Clarification Request Please specify type and acuity of heart failure if known. * Acute * Chronic * Acute on Chronic * Unknown * Systolic * Diastolic * Combined Systolic and Diastolic * Unknown The medical chart reflects the following: (4) CHF (congestive heart failure): Qualifiers: Heart failure chronicity: unspecified Heart failure type: unspecified Qualified Code(s): I50.9 - Heart failure, unspecified Code(s): I50.9 - Heart failure, unspecified Status: Acute Assessment and Plan: Echo pending Lasix 40 b.i.d. IV Strict I&Os Continue potassium 20 mEq p.o. q.d. ECHO 09/29 : Summary 1. Left ventricular systolic function is normal, estimated at 60-65%. 2. There is mildly increased left ventricular wall thickness. 3. The left ventricular diastolic function is grade I diastolic dysfunction. 4. Right ventricular chamber dimension is moderately enlarged. 5. Right ventricular systolic function is normal. 6. Right atrial chamber dimension is moderately enlarged. 7. No pulmonary hypertension, estimated pulmonary arterial systolic pressure is 21 mmHg. BNP 09/28: 342 09/30: 199 <Virginia Chairez RN - Last Filed: 10/03/24 13:44> Clarified Diagnosis Clarified Diagnosis: * Chronic diastolic <Jeanette Calvert MD - Last Filed: 10/03/24 14:30>
[2024-10-03 14:00] VITALS: BP 100/64; PULSE 60; RESP 16; TEMP 36.1; O2SAT 99
== END 2024-10-03 16:26 | DRG 690 ==
LOC: ANHED 18:39 → ANH3MEDSUR 19:28
PROVIDERS: General Practice; Registered Nurse; Admitting Provider Internal Medicine; Emergency Provider Emergency Medicine; Visit Provider Internal Medicine
DX: N39.0 Urinary tract infection, site not specified (principal); I50.32 Chronic diastolic (congestive) heart failure; Z16.12 Extended spectrum beta lactamase (ESBL) resistance; W18.30XA Fall on same level, unspecified, initial encounter; S51.812A Laceration without foreign body of left forearm, initial encounter; F03.90 Unspecified dementia, unspecified severity, without behavioral disturbance, psychotic disturbance, mood disturbance, and anxiety; I11.0 Hypertensive heart disease with heart failure; G47.33 Obstructive sleep apnea (adult) (pediatric); E78.5 Hyperlipidemia, unspecified; G62.9 Polyneuropathy, unspecified; M54.9 Dorsalgia, unspecified; G89.29 Other chronic pain; R00.1 Bradycardia, unspecified; H10.401 Unspecified chronic conjunctivitis, right eye; N40.1 Benign prostatic hyperplasia with lower urinary tract symptoms; R33.8 Other retention of urine; Z85.828 Personal history of other malignant neoplasm of skin; Z87.891 Personal history of nicotine dependence
CPT/HCPCS: 36415; 70450; 71046; 72125; 80053; 81001; 83735; 83880; 84484; 85025; 85027; 85055; 85610; 85730; 87086; 87186; 93005; 93306; 93880; 93970; 96365; 96366; 96375; 96376; 97110; 97116; 97161; 97166; 97530; 97535; 99285; A9270; C8929; G0378; J0696; J1644; J1650; J1938; Q9957

== ENCOUNTER 2024-11-04 05:20 | Emergency (ER) | payer MEDICARE, SELFPAY ==
[2024-11-04 05:21] VITALS: BP 109/68; PULSE 64; RESP 16; TEMP 36.6; O2SAT 95
[2024-11-04 05:37] LABS: Basophils Absolute Auto 0.1 K/mm3 (0.0-0.1); Basophils Percent Auto 0.7 % (0.2-1.2); Eosinophils Absolute Auto 0.4 K/mm3 (0-0.3); Eosinophils Percent Auto 3.9 % (0-4.4); Hematocrit 37.6 % (42.0-52.0); Hemoglobin 12.1 g/dL (14.0-18.0); Immature Granulocyte Absolute 0.05 K/mm3 (0.00-0.031); Immature Granulocyte Percent A 0.5 % (0-0.5); Lymphocytes Absolute Auto 2.14 K/mm3 (0.9-3.2); Lymphocytes Percent Auto 21.4 % (18.3-44.2); Mean Corpuscular HGB Conc 32.2 g/dl (32-36); Mean Corpuscular Hemoglobin 28.7 pg (26-34); Mean Corpuscular Volume 89.1 fl (80-100); Mean Platelet Volume 9.2 fl (7.4-10.4); Monocytes Absolute Auto 0.7 K/mm3 (0.1-0.6); Monocytes Percent Auto 6.9 % (2.6-8.5); Neutrophils Absolute Auto 6.7 K/mm3 (1.3-6.7); Neutrophils Percent Auto 66.6 % (45.5-73.1); Platelet Count Result 221 k/mm3 (150-375); Red Blood Count 4.22 M/mm3 (4.6-6.20); Red Cell Distribution Width 13.5 % (11.5-14.5)
[2024-11-04 05:46] LABS: Alanine Aminotransferase 10 U/L (6-50); Albumin Level 3.4 g/dL (3.5-5.1); Alkaline Phosphatase 115 U/L (38-126); Anion Gap 6 mmol/L (4-12); Aspartate Amino Transferase 16 U/L (17-59); Bilirubin,Total 0.5 mg/dL (0.2-1.3); Blood Urea Nitrogen 30 mg/dL (9-20); Calcium 8.5 mg/dL (8.4-10.2); Carbon Dioxide 27 mmol/L (22-30); Chloride 106 mmol/L (98-107); Estimated CRCL calculation 53 ml/min; Estimated Glomerular Filt Rate > 60; Glucose 97 mg/dL (65-110); Potassium 4.3 mmol/L (3.4-5.0); Sodium 139 mmol/L (137-145)
[2024-11-04 05:49] LABS: INR 1.2; Prothrombin Time 14.8 Seconds (11.1-14.7)
[2024-11-04 05:50] LABS: Partial Thromboplastin Time 27.2 Seconds (22.3-36.8)
--- NOTE | 2024-11-04 06:03 | ED_ITS ---
HPI - GI Bleed General Chief complaint: GI Bleed Stated complaint: RECTAL BLEEDING Time Seen by Provider: 11/04/24 05:48 History of Present Illness HPI Narrative: 84-year-old male with a history of advanced dementia, hypertension, CHF. Patient presents to the emergency department from his residential facility for concerns of some rectal bleeding. Patient states he was straining really hard when he was using the restroom and noticed some blood. Staff investigated did not see any kind hemorrhoids or issue but they symptom to the hospital for evaluation. Patient denies any pain, no abdominal bloating, no nausea, vomiting, chest pain, shortness a breath. No falls or injury. He has as baseline mentation and acting appropriately without any complaints at this time. Related Data Home Medications ?Medication ?Instructions ?Recorded ?Confirmed ?Last Taken ?Type cholecalciferol (vitamin D3) 50 50 mcg PO DAILY 05/23/20 09/28/24 09/27/24 20:00 History mcg (2,000 unit) capsule zinc 50 mg tablet 50 mg PO DAILY 05/23/20 09/28/24 09/27/24 20:00 History ascorbic acid (vitamin C) 500 mg 500 mg PO DAILY 08/14/24 09/28/24 09/27/24 20:00 History tablet (Vitamin C) donepezil 5 mg tablet 5 mg PO HS 08/14/24 09/28/24 09/27/24 18:00 History fluoxetine 10 mg capsule 10 mg PO QAM 08/14/24 09/28/24 09/28/24 08:00 History irbesartan 300 mg tablet 300 mg PO DAILY 08/14/24 09/28/24 09/28/24 08:00 History naproxen sodium 220 mg tablet 220 mg PO DAILY 08/14/24 09/28/24 09/28/24 08:00 History polyethylene glycol 3350 17 17 g PO .Q daily PRN constipation 08/14/24 09/28/24 Unknown History gram/dose oral powder primidone 50 mg tablet 12.5 mg PO HS 08/14/24 09/28/24 09/27/24 18:00 History furosemide 20 mg tablet 20 mg PO DAILY 09/28/24 09/28/24 09/28/24 08:00 History potassium chloride 20 mEq 20 meq PO DAILY 09/28/24 09/28/24 09/28/24 08:00 History tablet,extended release(part/cryst) Allergies Allergy/AdvReac Type Severity Reaction Status Date / Time amlodipine Allergy Intermediate HIVES, Verified 08/14/24 10:49 ITCHING hydrochlorothiazide Allergy Unknown RASH & Verified 08/14/24 10:49 ITCHING valsartan Allergy Unknown Hives Verified 08/14/24 10:49 Review of Systems 2 Review of Systems: As reviewed above in [facility] Past Medical History Medical History Hypovitaminosis D Basal cell carcinoma of skin Chronic back pain Obstructive sleep apnea CPAP of 8 recommended on polysomnogram 2019 Neuropathy Dyslipidemia Left ventricular diastolic dysfunction, NYHA class 1 Grade 1 diastolic dysfunction with EF of 66 by% noted on echocardiogram from 2019 Essential hypertension Surgical History Surgical History History of colonoscopy with polypectomy Multiple events with the most recent May 2017 History of hip surgery (08/14/24) Percutaneous pinning right hip fracture by Dr. 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 He reports that he has been since 2020. He has lived in [facility] since 2020. He reports that he briefly smoked when he was young but according to a prior H&P from 2010 he was smoking half a pack of cigarettes per day at that time. He used to occasionally drink alcohol in moderation but had not done so in many years. He denies history of illicit substance use. Code status: DNR/DNI with IDPA form on chart Healthcare POA: Miguel Boggs (stepsraissa) who lives in [place]. Smoking packs per day: 0.5 Smoking cigarettes per day: 10.0 Years smoked: 2 Smoking pack-years: 1.00 Smoking status: Former smoker Tobacco type: cigarettes Second hand tobacco smoke exposure: No Smoking end date: 06/06/1960 Alcohol intake: current Drinks per week: 1 Alcohol use details: a glass a wine Substance use: never Substance use type: does not use Do You Feel Safe in your Home?: No Lack of Transportation: No Lack of Food: Never True Current Housing: I Have Housing Concerned About Future Housing: No Difficulty Paying Gas/Electric Bills: No Difficulty Paying for Meds: No Currently Unemployed: No Education: Master's Degree or Higher Difficulty w/ Childcare or Family Care: No Living arrangements: assisted living Additional living arrangements comments: . Lives at [facility]. Occupation/Education: retired Additional occupation/education comments: [employer] Spiritual care concerns: No Agree to blood products: Yes Exam 2 Narrative: GENERAL: Elderly and chronically ill-appearing but not any acute distress and awake and answering questions appropriately HEAD: [Normocephalic, atraumatic.] EYES: [PERRLA and EOMI.] ENT: Nares clear, no rhinorrhea or epistaxis. Mucous membranes moist. NECK: Supple. CHEST: [Clear to auscultation. No respiratory distress.] HEART: [Regular rate and rhythm]. No murmur heard. [Normal peripheral pulses.] ABDOMEN: [Soft, nondistended], [nontender], [No rigidity or guarding] : External rectal examination shows no fissures, masses or external hemorrhoids. Internal rectal examination did not identify any rectal masses, internal hemorrhoids, pain or acute anomalies. Guaiac test was negative and stool was brown without any discoloration or tar colored black or redness. EXTREMITIES: Normal range of motion. [No edema.] SKIN: Warm, dry, no rash. NEURO: [No focal deficits]. Alert and oriented [x3.] PSYCH: [Normal mood and affect.] Course Vital Signs Vital signs: Vital Signs Temperature 36.6 C 11/04/24 05:21 Pulse Rate 64 11/04/24 05:21 Respiratory Rate 16 11/04/24 05:21 Blood Pressure 109/68 11/04/24 05:21 Pulse Oximetry 95 11/04/24 05:21 Oxygen Delivery Room Air 11/04/24 05:21 Temperature 36.6 C 11/04/24 05:21 Pulse Rate 69 11/04/24 07:38 Respiratory Rate 14 11/04/24 07:38 Blood Pressure 112/69 06/01/25 07:38 Pulse Oximetry 99 11/04/24 07:38 Oxygen Delivery Room Air 11/04/24 05:21 MDM - GI Bleed MDM Narrative Medical decision making narrative: 84-year-old male with history of advanced dementia, hypertension, CHF. He presents from his skilled residential facility for concerns of rectal bleeding while he was using the toilet and straining. His examination is very reassuring he has no complaints at this time. He denies any pain when this happened. Did not fall or injure himself. He has normal vital signs here in triage. Soft nontender nondistended abdomen. No complaints of abdominal pain, rectal pain, pelvic pain, chest pain, shortness a breath. He is afebrile. External rectal examination shows no fissures, masses or external hemorrhoids. Internal rectal examination did not identify any rectal masses, internal hemorrhoids, pain or acute anomalies. Guaiac test was negative and stool was brown without any discoloration or tar colored black or redness. Laboratory studies were drawn to see if he has any severe anemia, coagulation concerns or any other anomaly such as elevated BUN that would be indicative of a GI bleed. Patient likely had tenesmus and some straining while defecating causing minor bleeding but this is resolved and not evident on exam and reassuring given that he has a guaiac- negative stool sample. Laboratory studies showed no leukocytosis. Anemia is however around his baseline without any acute concern. Platelets are normal. Coagulation studies largely unremarkable. BUN and creatinine are normal without any significant elevations. LFTs unremarkable. Given lack of any complaints at this time, focal findings on exam or any other concerns as labs are do not believe any advanced imaging is warranted at this time and patient is asymptomatic. He can be discharged back to his facility with return precautions and follow-up outpatient. Medical Records Attestation: I reviewed the patient's medical records. Lab Data Attestation: I reviewed the patient's lab results. 11/04/24 05:30 11/04/24 05:30 Labs: Lab Results 11/04/24 Range/Units 05:30 WBC 10.0 (4.5-10.0) K/mm3 RBC 4.22 L (4.6-6.20) M/mm3 Hgb 12.1 L (14.0-18.0) g/dL Hct 37.6 L (42.0-52.0) % MCV 89.1 (80-100) fl MCH 28.7 (26-34) pg MCHC 32.2 (32-36) g/dl RDW 13.5 (11.5-14.5) % Plt Count 221 D (150-375) k/mm3 MPV 9.2 (7.4-10.4) fl Immature Gran % (Auto) 0.5 (0-0.5) % Neut % (Auto) 66.6 (45.5-73.1) % Lymph % (Auto) 21.4 (18.3-44.2) % [place] % (Auto) 6.9 (2.6-8.5) % Eos % (Auto) 3.9 (0-4.4) % Baso % (Auto) 0.7 (0.2-1.2) % Lymph # (Auto) 2.14 (0.9-3.2) K/mm3 [place] # (Auto) 0.7 H (0.1-0.6) K/mm3 Eos # (Auto) 0.4 H (0-0.3) K/mm3 Baso # (Auto) 0.1 (0.0-0.1) K/mm3 Abs Immat Gran (auto) 0.05 H (0.00-0.031) K/mm3 Absolute Neuts (auto) 6.7 (1.3-6.7) K/mm3 Absolute Nucleated RBC 0.000 (0.0-0.012) K/mm3 Nucleated RBC % 0.0 (0.0-0.2) % PT 14.8 H (11.1-14.7) Seconds INR 1.2 APTT 27.2 (22.3-36.8) Seconds Sodium 139 (137-145) mmol/L Potassium 4.3 (3.4-5.0) mmol/L Chloride 106 (98-107) mmol/L Carbon Dioxide 27 (22-30) mmol/L Anion Gap 6 (4-12) mmol/L BUN 30 H (9-20) mg/dL Creatinine 1.01 (0.7-1.3) mg/dL Estim Creat Clear Calc 53 ml/min Estimated GFR > 60 (59 - ) Glucose 97 (65-110) mg/dL Calcium 8.5 (8.4-10.2) mg/dL Total Bilirubin 0.5 (0.2-1.3) mg/dL AST 16 L (17-59) U/L ALT 10 (6-50) U/L Alkaline Phosphatase 115 (38-126) U/L Total Protein 6.0 L (6.3-8.2) g/dL Albumin 3.4 L (3.5-5.1) g/dL Blood Type O Positive Antibody Screen Negative Discharge Plan Discharge Clinical Impression: Painless rectal bleeding, Advanced dementia Patient Disposition: [place] Nursing Home/Asst Living Condition: Stable Instructions: Antibiotic Form, Rectal Bleeding (ED) Additional Instructions: Your laboratory studies are reassuring as well as your examination both externally and internally on digital rectal exam. No signs of blood, no bleeding from the rectum, negative stool sample for occult blood. Follow-up outpatient, return with any emergent concerns. High-fiber diet and even MiraLax to prevent any issues with straining. Patient Language: Danish Prescriptions: No Action zinc 50 mg tablet 50 mg PO DAILY cholecalciferol (vitamin D3) 50 mcg (2,000 unit) capsule 50 mcg PO DAILY furosemide 20 mg tablet 20 mg PO DAILY potassium chloride 20 mEq tablet,ER particles/crystals 20 meq PO DAILY sulfamethoxazole-trimethoprim 800-160 mg Tablet 1 tablet PO Q12HR 3 Days Qty: 14 0RF Rx Instructions: Please complete the course on 10/07/2024 ciprofloxacin HCl 0.3 % Drops 1 drp RIGHT EYE Q4HR 10 Days Qty: 15 0RF gabapentin 100 mg capsule 100 mg PO BID Qty: 60 0RF fluoxetine 10 mg capsule 10 mg PO QAM irbesartan 300 mg tablet 300 mg PO DAILY naproxen sodium 220 mg tablet 220 mg PO DAILY ascorbic acid (vitamin C) [Vitamin C] 500 mg tablet 500 mg PO DAILY primidone 50 mg tablet 12.5 mg PO HS donepezil 5 mg tablet 5 mg PO HS polyethylene glycol 3350 17 gram/dose powder 17 g PO .Q daily PRN (Reason: constipation) finasteride [Proscar] 5 mg tablet 5 mg PO QAM Qty: 90 1RF tamsulosin 0.4 mg capsule See Rx Instructions .ROUTE .COMPLEX Qty: 90 1RF Dose Instruction: TAKE ONE CAPSULE BY MOUTH ONCE DAILY Patient Comments: Pt. states he takes at night Rx Instructions: TAKE ONE CAPSULE BY MOUTH ONCE DAILY Follow-up/Referrals: PHYSICIAN,KENNEL HELPER [Primary Care Provider] - Time of Disposition: 06:11
--- OUTSIDE RECORDS SUMMARY | 2024-11-04 06:03 | XMS_ITS | Clinical Summary ---
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 Gender Identity Not on file Sexual [...] Height 182.9 cm (6') 05/12/2021 2:31 PM MENTAL HEALTH CASE MANAGER Body Mass Index 24.22 05/12/2021 2:31 PM MENTAL HEALTH CASE MANAGER Plan of Treatment Health Maintenance Due Date Last Done Comments DTAP/TDAP/TD VACCINES (1 - Tdap) 1961 PNEUMOCOCCAL VACCINE 50+ YEA RS (1 of 1 - PCV) 1992 02/05/2012 ZOSTER VACCINE (1 of 2) 1992 RSV VACCINE (60+ or ) (1 - 1-dose 75+ series) 2017 INFLUENZA VACCINE (#1) 2024 04/06/2022, 2021 Insurance [employer] [facility] [place] Address: [address] [address]
--- OUTSIDE RECORDS SUMMARY | 2024-11-04 06:03 | XMS_ITS | Clinical Summary ---
Author Organization [facility] Jessie salomon Address [address] [place] [address] Phone Care Team Providers Care Youth Coordinator Name Role Phone Eric French MD Primary Care Provider [phone] Allergies Active Allergy Reactions Criticality Noted Date [...] Comments Blood Pressure 162/80 05/05/2022 2:40 PM DENTAL EQUIPMENT TECHNICIAN Pulse 60 05/05/2022 2:40 PM DENTAL EQUIPMENT TECHNICIAN Temperature 35.3 C (95.5 F) 05/05/2022 2:40 PM DENTAL EQUIPMENT TECHNICIAN Respiratory Rate - - Oxygen Saturation - - Inhaled Oxygen Concentration - - Weight 89.4 kg (197 lb) 05/05/2022 2:40 PM DENTAL EQUIPMENT TECHNICIAN Height 182.9 cm (6') 05/05/2022 2:40 PM DENTAL EQUIPMENT TECHNICIAN Body Mass Index 26.72 05/05/2022 2:40 PM DENTAL EQUIPMENT TECHNICIAN Plan of Treatment Health Maintenance Due Date Last Done Comments Pneumococcal PPSV23/PCV13 65 + Years / Low and Medium Risk (1 of 4 - PCV) 1992 Influenza Vaccine (Season Ended) 2025 Insurance [address] [place] [id number] [facility] MEDICARE ADVANTAGE Care Teams Youth Coordinator Relationship Specialty Start Date End Date Eric French MD [address] [place] [id number] PCP - General Internal Medicine 05/05/22
--- OUTSIDE RECORDS SUMMARY | 2024-11-04 06:03 | XMS_ITS | Encounter Summary ---
Author Organization [facility] Address [address] [place] [address] Care Team Providers Care Survey Compiler Name Role Phone Jeremy Carreon MD Primary Care Provider [phone] Encounter Details Date Type Department Care Team (Latest Contact Info) Description 03/17/2005 Outpatient Historical [facility] SINAI Boyd, MD [facility] 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 Gender Identity Not on file Sexual Orientation [...] URINE ORDERABLES Final Result Performing Organization Address [facility] Phone Number INTERFACE SYSTEM Refer to clinic/hospital [...] ORDERABLES Final Resu lt Performing Organization Address [facility] Co de Phone Number INTERFACE [...] ORDERABLES Final Resu lt Performing Organization Address [facility] Phone Number INTERFACE SYSTEM Refer to clinic/hospital department * TSH (03/17/2005 9:40 AM CDT) TSH 1.96 0.27 - 4.20 uU/mL INTERFACE SYSTEM 03/17/2005 9:40 AM CDT [facility] Boyd MD CHEMISTRY ORDERABLES Final Resul t Performing Organization Address [facility] Phone Number INTERFACE SYSTEM Refer to clinic/hospital department * PSA (03/17/2005 9:40 AM CDT) PSA 1.5 0.0 - 4.0 ng/mL INTERFACE SYSTEM Comment:Performed on [employer] [facility] [employer] E170 System 03/17/2005 9:40 AM CDT [facility] Boyd MD CHEMISTRY ORDERABLES Final Resul t Performing Organization Address [facility] Phone Number INTERFACE SYSTEM Refer to clinic/hospital [...] Primary documented in this encounter Care Teams Survey Compiler Relationship Specialty Start Date End Date Jeremy Carreon MD [address] [place] [phone] PCP - General Internal Medicine 05/17/19 02/14/23 documented as of this encounter
--- OUTSIDE RECORDS SUMMARY | 2024-11-04 06:04 | XMS_ITS | Encounter Summary ---
Author Organization [employer] Address [address] 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
--- OUTSIDE RECORDS SUMMARY | 2024-11-04 06:04 | XMS_ITS | Data Portability ---
Author Organization [place] [facility] [employer] Address [address] [place] [address] Care Team Providers Care Fluorescent Solution Mixer Name Role Phone MARK ANTHONY TORREZ Marketing Database Coordinator OMID CANALES Panel Laminator GLORIA SAUNDERS Equipment Validation Engineer CHERY VACA Medical Oncologist [phone] MO CARMEN OTHER Assessment Encounter Date Assessment [...] time spent in any separately reportable services. [email or web address] Not available 02/22/2023 17:13:20 03/21/2023 03/21/2023 Medication [...] plan. F/U 12 weeks, sooner if needed [email or web address] Not available 06/14/2023 18:20:43 07/12/2023 07/12/2023 Medication Changes Having significant joint pain along with low back, hip pain. Having notable deficits with self-care and ADL. PT/OT ordered. Increased fall risk. Taking Naproxen BID for pain which has been helping. However, did discuss about NSAIDs and kidney function. Counseled on ensuring to drink appropriate fluid levels. Faxed lab results to clinical education academic coordinator. HTN controlled with medication but slightly elevated [...] 12 weeks, sooner if needed Not available 07/13/2023 07:29:53 08/03/2023 08/03/2023 Medication [...] auto diff* [address], [place], [address], 4 13:42:47 CMP, serum or plasma [address], [place], [address], 4 13:42:48 magnesium, serum or plasma [address], [place], [address], 4 13:42:49 iron, serum [address], [place], [address], 4 13:42:49 vitamin B12, serum [address], [place], [address], 4 13:42:50 unlisted lab - folate [address], [place], [address], 4 13:42:48 CMP, serum or plasma [address], [place], [address], 3 12:29:59 unlisted lab - complete blood count with auto diff* 2022 023 [email or web address] [facility], [address], [place], [address], 3 12:30:00 magnesium, serum or plasma 2022 023 [email or web address], [address], [place], [address], 3 12:29:59 Referral occupation al therapist referral 2023 024 [email or web address] [place], [address], [place], [address], 4 13:43:41 physical therapist referral 2023 024 [email or web address] [place], [address], [place], [address], 4 13:43:24 physical therapist referral 2023 024 [email or web address] [place], [address], [place], [address], 4 13:43:54 dermatolog ist referral - Back of scalp 2022 023 [email or web address] [facility] [place], [address], [place], [address], 3 12:05:49 Procedures None recorded. Surgeries None recorded. Imaging XR, hip + pelvis, unilateral , 4 or more view 2023 024 [facility] ([facility]), [address], [place], [address], 4 14:50:42 XR, sacrum + coccyx, 2 or more view 2023 024 [email or web address] [facility] ([facility]), [address], [place], [address], 4 15:47:01 XR, lumbar spine, 2 view 2023 024 [email or web address] [facility] ([facility] [place] [facility]), [address], [place], [address], 4 15:47:13 XR, thoracic spine, 3 view 2022 023 [email or web address] [facility] ([facility] [place] [facility]), [address], [place], [address], 3 19:33:44 Medication Orders None recorded. Patient TargetsNo targets recorded. Patient Instructions Encounter Date Encounter Id Patient Instructions Last Modified By Organization Details Last Modified Time 02/21/2023 [id number] care plan* [email or web address] Not available 02/04 16:44:58 Reason for Referral Equipment Validation Engineer Referral for N eoplasm of uncertain behavior [...] [facility] [address], [place], [address], 03/02/2023 12:21:36 03/01/20 23 03/01/2023 COMPL ETE BLOOD COUNT WITH AUTO DIFF* RBC 4.97 10E6/ uL 4.60-6 .00 Not Available [facility] [address], [place], [address], 03/02/2023 12:21:36 03/01/20 23 03/01/2023 COMPL ETE BLOOD COUNT WITH AUTO DIFF* HGB 15.4 g/dL 14.0-1 8.0 Not Available [facility] [address], [place], [address], 03/02/2023 12:21:36 03/01/20 23 03/01/2023 COMPL ETE BLOOD COUNT WITH AUTO DIFF* HCT 45.7 % 40.0-5 4.0 Not Available [facility] [address], [place], [address], 03/02/2023 12:21:36 03/01/20 23 03/01/2023 COMPL ETE BLOOD COUNT WITH AUTO DIFF* MCV 92 fL 80-100 Not Available [facility] [address], [place], [address], 03/02/2023 12:21:36 03/01/20 23 03/01/2023 COMPL ETE BLOOD COUNT WITH AUTO DIFF* MCH 31 pg 26-32 Not Available [facility] [address], [place], [address], 03/02/2023 12:21:36 03/01/20 23 03/01/2023 COMPL ETE BLOOD COUNT WITH AUTO DIFF* MCHC 34 g/dL 32-36 Not Available [facility] [address], [place], [address], 03/02/2023 12:21:36 03/01/20 23 03/01/2023 COMPL ETE BLOOD COUNT WITH AUTO DIFF* RDW 13.6 % 11.5-1 4.5 Not Available [facility] [address], [place], [address], 03/02/2023 12:21:36 09/26/20 23 03/01/2023 COMPL ETE BLOOD COUNT WITH AUTO DIFF* plt 136 10E3/ uL 150-45 0 low Not Available [facility] [address], [place], [address], 03/02/2023 12:21:36 03/01/20 23 03/01/2023 COMPL ETE BLOOD COUNT WITH AUTO DIFF* neut% 68.3 % 50.0-7 0.0 Not Available [facility] [address], [place], [address], 03/02/2023 12:21:36 03/01/20 23 03/01/2023 COMPL ETE BLOOD COUNT WITH AUTO DIFF* lymph% 22.1 % 18.0-4 2.0 Not Available [facility] [address], [place], [address], 03/02/2023 12:21:36 03/01/20 23 03/01/2023 COMPL ETE BLOOD COUNT WITH AUTO DIFF* mono% 5.9 % 2.0-11 .0 Not Available [facility] [address], [place], [address], 03/02/2023 12:21:36 03/01/20 23 03/01/2023 COMPL ETE BLOOD COUNT WITH AUTO DIFF* eos% 2.6 % 1.0-3. 0 Not Available [facility] [address], [place], [address], 03/02/2023 12:21:36 03/01/20 23 03/01/2023 COMPL ETE BLOOD COUNT WITH AUTO DIFF* baso% 0.8 % 0.0-2. 0 Not Available [facility] [address], [place], [address], 03/02/2023 12:21:36 03/01/20 23 03/01/2023 COMPL ETE BLOOD COUNT WITH AUTO DIFF* Ig% 0.3 % 0.0-0. 6 Not Available [facility] [address], [place], [address], 03/02/2023 12:21:36 03/01/20 23 03/01/2023 COMPL ETE BLOOD COUNT WITH AUTO DIFF* neut# 4.53 10E3/ uL 2.30-8 .10 Not Available [facility] [address], [place], [address], 03/02/2023 12:21:36 03/01/20 23 03/01/2023 COMPL ETE BLOOD COUNT WITH AUTO DIFF* lymph# 1.46 10E3/ uL 0.80-4 .80 Not Available [facility] [address], [place], [address], 03/02/2023 12:21:36 03/01/20 23 03/01/2023 COMPL ETE BLOOD COUNT WITH AUTO DIFF* mono# 0.39 10E3/ uL 0.45-1 .30 low Not Available [facility] [address], [place], [address], 03/02/2023 12:21:36 03/01/20 23 03/01/2023 COMPL ETE BLOOD COUNT WITH AUTO DIFF* eos# 0.17 10E3/ uL 0.00-0 .[address] [facility] [address], [place], [address], 03/02/2023 12:21:36 03/01/20 23 03/01/2023 COMPL ETE BLOOD COUNT WITH AUTO DIFF* baso# 0.05 10E3/ uL 0.00-0 .10 Not Available [facility] [address], [place], [address], 03/02/2023 12:21:36 03/01/20 23 03/01/2023 COMPL ETE BLOOD COUNT WITH AUTO DIFF* Ig# 0.02 10E3/ uL 0.00-0 .09 Not Available [facility] [address], [place], [address], 03/02/2023 12:21:36 03/01/20 23 03/01/2023 COMPR EHENS [...] Available [facility] [address], [place], [address], 03/02/2023 12:21:37 03/01/20 23 03/01/2023 COMPR EHENS DAVID METAB OLIC PANEL * BUN 16 mg/dL 8-23 Not Available [facility] [address], [place], [address], 03/02/2023 12:21:37 03/01/20 23 03/01/2023 COMPR EHENS DAVID METAB OLIC PANEL * calcium 8.7 mg/dL 8.8-10 .2 low Not Available [facility] [address], [place], [address], 03/02/2023 12:21:37 03/01/20 23 03/01/2023 COMPR EHENS DAVID METAB OLIC PANEL * creatinine 1.14 mg/dL 0.80-1 .30 Not Available [facility] [address], [place], [address], 03/02/2023 12:21:37 03/01/20 23 03/01/2023 COMPR EHENS DAVID METAB OLIC PANEL * sodium 143 mmol/ L 136-14 5 Not Available [facility] [address], [place], [address], 03/02/2023 12:21:37 03/01/20 23 03/01/2023 COMPR EHENS DAVID METAB OLIC PANEL * potassium 4.5 mmol/ L 3.5-5. 1 Not Available [facility] [address], [place], [address], 03/02/2023 12:21:37 03/01/20 23 03/01/2023 COMPR EHENS DAVID METAB OLIC PANEL * chloride 106 mEq/L 98-107 Not Available [facility] [address], [place], [address], 03/02/2023 12:21:37 03/01/20 23 03/01/2023 COMPR EHENS DAVID METAB OLIC PANEL * carbon dioxide 28 mmol/ L 23-30 Not Available [facility] [address], [place], [address], 03/02/2023 12:21:37 03/01/20 23 03/01/2023 COMPR EHENS DAVID METAB OLIC PANEL * total protein 5.9 g/dL 6.2-8. 1 low Not Available [facility] [address], [place], [address], 03/02/2023 12:21:37 03/01/20 23 03/01/2023 COMPR EHENS DAVID METAB OLIC PANEL * albumin 3.7 g/dL 3.2-4. 6 Not Available [facility] [address], [place], [address], 03/02/2023 12:21:37 03/01/20 23 03/01/2023 COMPR EHENS DAVID METAB OLIC PANEL * globulin 2.2 g/dL 2.3-3. 4 low Not Available [facility] [address], [place], [address], 03/02/2023 12:21:37 03/01/20 23 03/01/2023 COMPR EHENS DAVID METAB OLIC PANEL * A/G ratio 1.7 g/dL 0.8-2. 0 Not Available [facility] [address], [place], [address], 03/02/2023 12:21:37 03/01/20 23 03/01/2023 COMPR EHENS DAVID METAB OLIC PANEL * alkaline phosphatase 80 U/L 30-120 Not Available [facility] [address], [place], [address], 03/02/2023 12:21:37 03/01/20 23 03/01/2023 COMPR EHENS DAVID METAB OLIC PANEL * ALT (SGPT) 17 U/L 13-40 Not Available [facility] [address], [place], [address], 03/02/2023 12:21:37 03/01/20 23 03/01/2023 COMPR EHENS DAVID METAB OLIC PANEL * AST (SGOT) 15 U/L 19-48 low Not Available [facility] [address], [place], [address], 03/02/2023 12:21:37 03/01/20 23 03/01/2023 COMPR EHENS DAVID METAB OLIC PANEL * bilirubin, total 0.79 mg/dL 0.20-1 .10 Not Available [facility] [address], [place], [address], 03/02/2023 12:21:37 03/01/20 23 03/01/2023 COMPR EHENS [...] Available [facility] [address], [place], [address], 03/02/2023 12:21:37 03/01/2003/01/2023 MAGNE SIUM* magnesium 2.00 mg/dL 1.60-2 .40 Not Available [facility] [address], [place], [address], 03/02/2023 12:21:37 06/23/19 24 06/23/2023 COMPL ETE BLOOD COUNT WITH AUTO DIFF* WBC 7.19 10E3/ uL 4.50-1 1.50 Not Available [facility] [address], [place], [address], 06/24/2023 13:42:47 06/23/19 24 06/23/2023 COMPL ETE BLOOD COUNT WITH AUTO DIFF* RBC 4.55 10E6/ uL 4.60-6 .00 low Not Available [facility] [address], [place], [address], 06/24/2023 13:42:47 06/23/19 24 06/23/2023 COMPL ETE BLOOD COUNT WITH AUTO DIFF* HGB 13.8 g/dL 14.0-1 8.0 low Not Available [facility] [address], [place], [address], 06/24/2023 13:42:47 06/23/19 24 06/23/2023 COMPL ETE BLOOD COUNT WITH AUTO DIFF* HCT 40.5 % 40.0-5 4.0 Not Available [facility] [address], [place], [address], 06/24/2023 13:42:47 06/23/19 24 06/23/2023 COMPL ETE BLOOD COUNT WITH AUTO DIFF* MCV 89 fL 80-100 Not Available [facility] [address], [place], [address], 06/24/2023 13:42:47 06/23/19 24 06/23/2023 COMPL ETE BLOOD COUNT WITH AUTO DIFF* MCH 30 pg 26-32 Not Available [facility] [address], [place], [address], 06/24/2023 13:42:47 06/23/19 24 06/23/2023 COMPL ETE BLOOD COUNT WITH AUTO DIFF* MCHC 34.1 g/dL 32.0-3 6.0 Not Available [facility] [address], [place], [address], 06/24/2023 13:42:47 06/23/19 24 06/23/2023 COMPL ETE BLOOD COUNT WITH AUTO DIFF* RDW 13.2 % 11.5-1 4.5 Not Available [facility] [address], [place], [address], 06/24/2023 13:42:47 06/23/19 24 06/23/2023 COMPL ETE BLOOD COUNT WITH AUTO DIFF* plt 129 10E3/ uL 150-45 0 low Not Available [facility] [address], [place], [address], 06/24/2023 13:42:47 06/23/19 24 06/23/2023 COMPL ETE BLOOD COUNT WITH AUTO DIFF* neut% 71.7 % 50.0-7 0.0 high Not Available [facility] [address], [place], [address], 06/24/2023 13:42:47 06/23/19 24 06/23/2023 COMPL ETE BLOOD COUNT WITH AUTO DIFF* lymph% 19.1 % 18.0-4 2.0 Not Available [facility] [address], [place], [address], 06/24/2023 13:42:47 06/23/19 24 06/23/2023 COMPL ETE BLOOD COUNT WITH AUTO DIFF* mono% 5.7 % 2.0-11 .0 Not Available [facility] [address], [place], [address], 06/24/2023 13:42:47 06/23/19 24 06/23/2023 COMPL ETE BLOOD COUNT WITH AUTO DIFF* eos% 2.5 % 1.0-3. 0 Not Available [facility] [address], [place], [address], 06/24/2023 13:42:47 06/23/19 24 06/23/2023 COMPL ETE BLOOD COUNT WITH AUTO DIFF* baso% 0.6 % 0.0-2. 0 Not Available [facility] [address], [place], [address], 06/24/2023 13:42:47 06/23/19 24 06/23/2023 COMPL ETE BLOOD COUNT WITH AUTO DIFF* Ig% 0.4 % 0.0-0. 6 Not Available [facility] [address], [place], [address], 06/24/2023 13:42:47 06/23/19 24 06/23/2023 COMPL ETE BLOOD COUNT WITH AUTO DIFF* neut# 5.16 10E3/ uL 2.30-8 .10 Not Available [facility] [address], [place], [address], 06/24/2023 13:42:47 06/23/19 24 06/23/2023 COMPL ETE BLOOD COUNT WITH AUTO DIFF* lymph# 1.37 10E3/ uL 0.80-4 .80 Not Available [facility] [address], [place], [address], 06/24/2023 13:42:47 06/23/19 24 06/23/2023 COMPL ETE BLOOD COUNT WITH AUTO DIFF* mono# 0.41 10E3/ uL 0.45-1 .30 low Not Available [facility] [address], [place], [address], 06/24/2023 13:42:47 06/23/19 24 06/23/2023 COMPL ETE BLOOD COUNT WITH AUTO DIFF* eos# 0.18 10E3/ uL 0.00-0 .40 Not Available [facility] [address], [place], [address], 06/24/2023 13:42:47 06/23/19 24 06/23/2023 COMPL ETE BLOOD COUNT WITH AUTO DIFF* baso# 0.04 10E3/ uL 0.00-0 .10 Not Available [facility] [address], [place], [address], 06/24/2023 13:42:47 06/23/19 24 06/23/2023 COMPL ETE BLOOD COUNT WITH AUTO DIFF* Ig# 0.03 10E3/ uL 0.00-0 .09 Not Available [facility] [address], [place], [address], 06/24/2023 13:42:47 06/23/19 24 06/23/2023 COMPR EHENS [...] Available [facility] [address], [place], [address], 06/24/2023 13:42:48 06/23/19 24 06/23/2023 COMPR EHENS DAVID METAB OLIC PANEL * BUN 26 mg/dL 8-23 high Not Available [facility] [address], [place], [address], 06/24/2023 13:42:48 06/23/19 24 06/23/2023 COMPR EHENS DAVID METAB OLIC PANEL * calcium 8.5 mg/dL 8.8-10 .2 low Not Available [facility] [address], [place], [address], 06/24/2023 13:42:48 06/23/19 24 06/23/2023 COMPR EHENS DAVID METAB OLIC PANEL * creatinine 1.31 mg/dL 0.80-1 .30 high Not Available [facility] [address], [place], [address], 06/24/2023 13:42:48 06/23/19 24 06/23/2023 COMPR EHENS DAVID METAB OLIC PANEL * sodium 142 mmol/ L 136-14 5 Not Available [facility] [address], [place], [address], 06/24/2023 13:42:48 06/23/19 24 06/23/2023 COMPR EHENS DAVID METAB OLIC PANEL * potassium 4.3 mmol/ L 3.5-5. 1 Not Available [facility] [address], [place], [address], 06/24/2023 13:42:48 06/23/19 24 06/23/2023 COMPR EHENS DAVID METAB OLIC PANEL * chloride 107 mEq/L 98-107 Not Available [facility] [address], [place], [address], 06/24/2023 13:42:48 06/23/19 24 06/23/2023 COMPR EHENS DAVID METAB OLIC PANEL * carbon dioxide 25 mmol/ L 23-30 Not Available [facility] [address], [place], [address], 06/24/2023 13:42:48 06/23/19 24 06/23/2023 COMPR EHENS DAVID METAB OLIC PANEL * total protein 5.0 g/dL 6.2-8. 1 low Not Available [facility] [address], [place], [address], 06/24/2023 13:42:48 06/23/19 24 06/23/2023 COMPR EHENS DAVID METAB OLIC PANEL * albumin 3.1 g/dL 3.2-4. 6 low Not Available [facility] [address], [place], [address], 06/24/2023 13:42:48 06/23/19 24 06/23/2023 COMPR EHENS DAVID METAB OLIC PANEL * globulin 1.9 g/dL 2.3-3. 4 low Not Available [facility] [address], [place], [address], 06/24/2023 13:42:48 06/23/19 24 06/23/2023 COMPR EHENS DAVID METAB OLIC PANEL * A/G ratio 1.6 g/dL 0.8-2. 0 Not Available [facility] [address], [place], [address], 06/24/2023 13:42:48 06/23/19 24 06/23/2023 COMPR EHENS DAVID METAB OLIC PANEL * alkaline phosphatase 66 U/L 30-120 Not Available [facility] [address], [place], [address], 06/24/2023 13:42:48 06/23/19 24 06/23/2023 COMPR EHENS DAVID METAB OLIC PANEL * ALT (SGPT) 15 U/L 13-40 Not Available [facility] [address], [place], [address], 06/24/2023 13:42:48 06/23/19 24 06/23/2023 COMPR EHENS DAVID METAB OLIC PANEL * AST (SGOT) 13 U/L 19-48 low Not Available [facility] [address], [place], [address], 06/24/2023 13:42:48 06/23/19 24 06/23/2023 COMPR EHENS DAVID METAB OLIC PANEL * bilirubin, total 0.69 mg/dL 0.20-1 .10 Not Available [facility] [address], [place], [address], 06/24/2023 13:42:48 06/23/19 24 06/23/2023 COMPR EHENS [...] [facility] [address], [place], [address], 06/24/2023 13:42:48 06/23/19 24 06/23/2023 FOLAT E* folate 13.8 NG/mL 8.6-58 .9 Not Available [facility] [address], [place], [address], 06/24/2023 13:42:48 06/23/19 24 06/23/2023 IRON* iron 89 ug/dL 65-175 Intox icate d Child : 280 - 2250 ug/dL Fatal ly Poiso benny Child : >1800 ug/dL Intox icate d Child : 280 - 2250 ug/dL Fatal ly Poiso benny Child : >1800 ug/dL Not Available [facility] [address], [place], [address], 06/24/2023 13:42:49 06/23/19 24 06/23/2023 MAGNE SIUM* magnesium 1.80 mg/dL 1.60-2 .40 Not Available [facility] [address], [place], [address], 06/24/2023 13:42:49 06/23/19 24 06/23/2023 VITAM IN B12* vitamin B12 257 pg/mL 250-11 00 Not Available [facility] [address], [place], [address], 06/24/2023 13:42:50 06/23/19 24 06/23/2023 COMPL ETE BLOOD COUNT WITH AUTO DIFF* WBC 7.19 10E3/ uL 4.50-1 1.50 Not Available [facility] [address], [place], [address], 06/24/2023 15:10:26 06/23/19 24 06/23/2023 COMPL ETE BLOOD COUNT WITH AUTO DIFF* RBC 4.55 10E6/ uL 4.60-6 .00 low Not Available [facility] [address], [place], [address], 06/24/2023 15:10:26 06/23/19 24 06/23/2023 COMPL ETE BLOOD COUNT WITH AUTO DIFF* HGB 13.8 g/dL 14.0-1 8.0 low Not Available [facility] [address], [place], [address], 06/24/2023 15:10:26 06/23/19 24 06/23/2023 COMPL ETE BLOOD COUNT WITH AUTO DIFF* HCT 40.5 % 40.0-5 4.0 Not Available [facility] [address], [place], [address], 06/24/2023 15:10:26 06/23/19 24 06/23/2023 COMPL ETE BLOOD COUNT WITH AUTO DIFF* MCV 89 fL 80-100 Not Available [facility] [address], [place], [address], 06/24/2023 15:10:26 06/23/19 24 06/23/2023 COMPL ETE BLOOD COUNT WITH AUTO DIFF* MCH 30 pg 26-32 Not Available [facility] [address], [place], [address], 06/24/2023 15:10:26 06/23/19 24 06/23/2023 COMPL ETE BLOOD COUNT WITH AUTO DIFF* MCHC 34.1 g/dL 32.0-3 6.0 Not Available [facility] [address], [place], [address], 06/24/2023 15:10:26 06/23/19 24 06/23/2023 COMPL ETE BLOOD COUNT WITH AUTO DIFF* RDW 13.2 % 11.5-1 4.5 Not Available [facility] [address], [place], [address], 06/24/2023 15:10:26 06/23/19 24 06/23/2023 COMPL ETE BLOOD COUNT WITH AUTO DIFF* plt 129 10E3/ uL 150-45 0 low Not Available [facility] [address], [place], [address], 06/24/2023 15:10:26 06/23/19 24 06/23/2023 COMPL ETE BLOOD COUNT WITH AUTO DIFF* neut% 71.7 % 50.0-7 0.0 high Not Available [facility] [address], [place], [address], 06/24/2023 15:10:26 06/23/19 24 06/23/2023 COMPL ETE BLOOD COUNT WITH AUTO DIFF* lymph% 19.1 % 18.0-4 2.0 Not Available [facility] [address], [place], [address], 06/24/2023 15:10:26 06/23/19 24 06/23/2023 COMPL ETE BLOOD COUNT WITH AUTO DIFF* mono% 5.7 % 2.0-11 .0 Not Available [facility] [address], [place], [address], 06/24/2023 15:10:26 06/23/19 24 06/23/2023 COMPL ETE BLOOD COUNT WITH AUTO DIFF* eos% 2.5 % 1.0-3. 0 Not Available [facility] [address], [place], [address], 06/24/2023 15:10:26 06/23/19 24 06/23/2023 COMPL ETE BLOOD COUNT WITH AUTO DIFF* baso% 0.6 % 0.0-2. 0 Not Available [facility] [address], [place], [address], 06/24/2023 15:10:26 06/23/19 24 06/23/2023 COMPL ETE BLOOD COUNT WITH AUTO DIFF* Ig% 0.4 % 0.0-0. 6 Not Available [facility] [address], [place], [address], 06/24/2023 15:10:26 06/23/19 24 06/23/2023 COMPL ETE BLOOD COUNT WITH AUTO DIFF* neut# 5.16 10E3/ uL 2.30-8 .10 Not Available [facility] [address], [place], [address], 06/24/2023 15:10:26 06/23/19 24 06/23/2023 COMPL ETE BLOOD COUNT WITH AUTO DIFF* lymph# 1.37 10E3/ uL 0.80-4 .80 Not Available [facility] [address], [place], [address], 06/24/2023 15:10:26 06/23/19 24 06/23/2023 COMPL ETE BLOOD COUNT WITH AUTO DIFF* mono# 0.41 10E3/ uL 0.45-1 .30 low Not Available [facility] [address], [place], [address], 06/24/2023 15:10:26 06/23/19 24 06/23/2023 COMPL ETE BLOOD COUNT WITH AUTO DIFF* eos# 0.18 10E3/ uL 0.00-0 .40 Not Available [facility] [address], [place], [address], 06/24/2023 15:10:26 06/23/19 24 06/23/2023 COMPL ETE BLOOD COUNT WITH AUTO DIFF* baso# 0.04 10E3/ uL 0.00-0 .10 Not Available [facility] [address], [place], [address], 06/24/2023 15:10:26 06/23/19 24 06/23/2023 COMPL ETE BLOOD COUNT WITH AUTO DIFF* Ig# 0.03 10E3/ uL 0.00-0 .09 Not Available [facility] [address], [place], [address], 06/24/2023 15:10:26 06/23/19 24 06/23/2023 FOLAT E* folate 13.8 NG/mL 8.6-58 .9 Not Available [facility] [address], [place], [address], 06/24/2023 15:10:27 10/06/19 24 10/06/2023 COMPL ETE BLOOD COUNT WITH AUTO DIFF* WBC 6.30 10E3/ uL 4.50-1 1.50 Not Available [facility] [address], [place], [address], 10/07/2023 17:44:26 10/06/19 24 10/06/2023 COMPL ETE BLOOD COUNT WITH AUTO DIFF* RBC 4.44 10E6/ uL 4.60-6 .00 low Not Available [facility] [address], [place], [address], 10/07/2023 17:44:26 10/06/19 24 10/06/2023 COMPL ETE BLOOD COUNT WITH AUTO DIFF* HGB 13.8 g/dL 14.0-1 8.0 low Not Available [facility] [address], [place], [address], 10/07/2023 17:44:26 10/06/19 24 10/06/2023 COMPL ETE BLOOD COUNT WITH AUTO DIFF* HCT 42.8 % 40.0-5 4.0 Not Available [facility] [address], [place], [address], 10/07/2023 17:44:26 10/06/19 24 10/06/2023 COMPL ETE BLOOD COUNT WITH AUTO DIFF* MCV 96 fL 80-100 Not Available [facility] [address], [place], [address], 10/07/2023 17:44:26 10/06/19 24 10/06/2023 COMPL ETE BLOOD COUNT WITH AUTO DIFF* MCH 31 pg 26-32 Not Available [facility] [address], [place], [address], 10/07/2023 17:44:26 10/06/19 24 10/06/2023 COMPL ETE BLOOD COUNT WITH AUTO DIFF* MCHC 32.2 g/dL 32.0-3 6.0 Not Available [facility] [address], [place], [address], 10/07/2023 17:44:26 10/06/19 24 10/06/2023 COMPL ETE BLOOD COUNT WITH AUTO DIFF* RDW 14.6 % 11.5-1 4.5 high Not Available [facility] [address], [place], [address], 10/07/2023 17:44:26 10/06/19 24 10/06/2023 COMPL ETE BLOOD COUNT WITH AUTO DIFF* plt 111 10E3/ uL 150-45 0 low Not Available [facility] [address], [place], [address], 10/07/2023 17:44:26 10/06/19 24 10/06/2023 COMPL ETE BLOOD COUNT WITH AUTO DIFF* neut% 59.4 % 50.0-7 0.0 Not Available [facility] [address], [place], [address], 10/07/2023 17:44:26 10/06/19 24 10/06/2023 COMPL ETE BLOOD COUNT WITH AUTO DIFF* lymph% 27.3 % 18.0-4 2.0 Not Available [facility] [address], [place], [address], 10/07/2023 17:44:26 10/06/19 24 10/06/2023 COMPL ETE BLOOD COUNT WITH AUTO DIFF* mono% 8.1 % 2.0-11 .0 Not Available [facility] [address], [place], [address], 10/07/2023 17:44:26 10/06/19 24 10/06/2023 COMPL ETE BLOOD COUNT WITH AUTO DIFF* eos% 4.4 % 1.0-3. 0 high Not Available [facility] [address], [place], [address], 10/07/2023 17:44:26 10/06/19 24 10/06/2023 COMPL ETE BLOOD COUNT WITH AUTO DIFF* baso% 0.6 % 0.0-2. 0 Not Available [facility] [address] [address]pos, [place], [address], 10/07/2023 17:44:26 10/06/19 24 10/06/2023 COMPL ETE BLOOD COUNT WITH AUTO DIFF* Ig% 0.2 % 0.0-0. 6 Not Available [facility] [address], [place], [address], 10/07/2023 17:44:26 10/06/19 24 10/06/2023 COMPL ETE BLOOD COUNT WITH AUTO DIFF* neut# 3.74 10E3/ uL 2.30-8 .10 Not Available [facility] [address], [place], [address], 10/07/2023 17:44:26 10/06/19 24 10/06/2023 COMPL ETE BLOOD COUNT WITH AUTO DIFF* lymph# 1.72 10E3/ uL 0.80-4 .80 Not Available [facility] [address], [place], [address], 10/07/2023 17:44:26 10/06/19 24 10/06/2023 COMPL ETE BLOOD COUNT WITH AUTO DIFF* mono# 0.51 10E3/ uL 0.45-1 .30 Not Available [facility] [address], [place], [address], 10/07/2023 17:44:26 10/06/19 24 10/06/2023 COMPL ETE BLOOD COUNT WITH AUTO DIFF* eos# 0.28 10E3/ uL 0.00-0 .40 Not Available [facility] [address], [place], [address], 10/07/2023 17:44:26 10/06/19 24 10/06/2023 COMPL ETE BLOOD COUNT WITH AUTO DIFF* baso# 0.04 10E3/ uL 0.00-0 .10 Not Available [facility] [address], [place], [address], 10/07/2023 17:44:26 10/06/19 24 10/06/2023 COMPL ETE BLOOD COUNT WITH AUTO DIFF* Ig# 0.01 10E3/ uL 0.00-0 .09 Not Available [facility] [address], [place], [address], 10/07/2023 17:44:26 10/06/19 24 10/06/2023 COMPL ETE BLOOD COUNT WITH AUTO DIFF* reflex Smear Review Not Available [facility] [address], [place], [address], 10/07/2023 17:44:26 10/06/19 24 10/06/2023 COMPR EHENS [...] Available [facility] [address], [place], [address], 10/07/2023 17:44:26 10/06/19 24 10/06/2023 COMPR EHENS DAVID METAB OLIC PANEL * BUN 19 mg/dL 8-23 Not Available [facility] [address], [place], [address], 10/07/2023 17:44:26 10/06/19 24 10/06/2023 COMPR EHENS DAVID METAB OLIC PANEL * calcium 8.2 mg/dL 8.8-10 .2 low Not Available [facility] [address], [place], [address], 10/07/2023 17:44:26 10/06/19 24 10/06/2023 COMPR EHENS DAVID METAB OLIC PANEL * creatinine 1.05 mg/dL 0.80-1 .30 Not Available [facility] [address], [place], [address], 10/07/2023 17:44:26 10/06/19 24 10/06/2023 COMPR EHENS DAVID METAB OLIC PANEL * sodium 142 mmol/ L 136-14 5 Not Available [facility] [address], [place], [address], 10/07/2023 17:44:26 10/06/19 24 10/06/2023 COMPR EHENS DAVID METAB OLIC PANEL * potassium 4.2 mmol/ L 3.5-5. 1 Not Available [facility] [address], [place], [address], 10/07/2023 17:44:26 10/06/19 24 10/06/2023 COMPR EHENS DAVID METAB OLIC PANEL * chloride 108 mEq/L 98-107 high Not Available [facility] [address], [place], [address], 10/07/2023 17:44:26 10/06/19 24 10/06/2023 COMPR EHENS DAVID METAB OLIC PANEL * carbon dioxide 26 mmol/ L 23-30 Not Available [facility] [address], [place], [address], 10/07/2023 17:44:26 10/06/19 24 10/06/2023 COMPR EHENS DAVID METAB OLIC PANEL * total protein 4.9 g/dL 6.2-8. 1 low Not Available [facility] [address], [place], [address], 10/07/2023 17:44:26 10/06/19 24 10/06/2023 COMPR EHENS DAVID METAB OLIC PANEL * albumin 2.9 g/dL 3.2-4. 6 low Not Available [facility] [address], [place], [address], 10/07/2023 17:44:26 10/06/19 24 10/06/2023 COMPR EHENS DAVID METAB OLIC PANEL * globulin 2.0 g/dL 2.3-3. 4 low Not Available [facility] [address], [place], [address], 10/07/2023 17:44:26 10/06/19 24 10/06/2023 COMPR EHENS DAVID METAB OLIC PANEL * A/G ratio 1.5 g/dL 0.8-2. 0 Not Available [facility] [address], [place], [address], 10/07/2023 17:44:26 10/06/19 24 10/06/2023 COMPR EHENS DAVID METAB OLIC PANEL * alkaline phosphatase 73 U/L 30-120 Not Available [facility] [address], [place], [address], 10/07/2023 17:44:26 10/06/19 24 10/06/2023 COMPR EHENS DAVID METAB OLIC PANEL * ALT (SGPT) 13 U/L 13-40 Not Available [facility] [address], [place], [address], 10/07/2023 17:44:26 10/06/19 24 10/06/2023 COMPR EHENS DAVID METAB OLIC PANEL * AST (SGOT) 12 U/L 19-48 low Not Available [facility] [address], [place], [address], 10/07/2023 17:44:26 10/06/19 24 10/06/2023 COMPR EHENS DAVID METAB OLIC PANEL * bilirubin, total 0.97 mg/dL 0.20-1 .10 Not Available [facility] [address], [place], [address], 10/07/2023 17:44:26 10/06/19 24 10/06/2023 COMPR EHENS DAVDI METAB OLIC PANEL * eGFR >60.00 mL/mi [...] Not Available [facility] [address], [place], [address], 10/07/2023 17:44:26 06/15/19 24 06/15/2023 XR, hip + pelvi s, unila teral , 4 or more view No observ ation record ed. [email or web address] [facility] [address] [facility], [place], [address], 07/13/2023 07:14:48 Result Notes None recorded. Problems Name Problem SNOMED Code Status Onset Date Resolution Date Notes Provider Name and Address Organization Details Recorded Time Essential hypertensio n 85044720 Active 2022 YANIV Arias, PMHNP-BC [address] [place], [address], [place] [facility] 18:14:22 Neuropathy 100625361 Active 2022 YANIV Arias, PMHNP-BC [address], [place], [address], [facility] 4 18:14:22 Obstructive sleep apnea of adult 8954260352794 Active 2023 Cristy Dawkins [facility], PMHNP-BC [address], [place], [address], [facility] 4 07:25:43 Osteoarthri tis of multiple joints 466403859 Active 2023 Cristy Dawkins [facility]-BC, PMHNP-BC [address], [place], [address], [facility] 4 07:06:33 Low back pain 722502300 Active 2023 Cristy Dawkins TYPE ROLLING MACHINE OPERATOR-BC, PMHNP-BC [address], [place], [address], [facility] [place] 4 07:06:33 Problem Notes None recorded. Medical Equipment None Reported. Allergies Allergen ID Allergen Name Allergen Category Reaction Reaction Severity Criticality Documentation Date Start Date Code Code System Note Provider Name and Address Organization Details Recorded Time 6753 amlodipin e medicatio n Not available Not available Not available 02/22/2023 97939 RxNorm Shamyra [facility] 3 16:46:55 6754 hydrochlo rothiazid e medicatio n Not available Not available Not available 02/22/2023 5487 RxNorm Shamyra [facility] 3 16:47:12 Medications Name Sig Start Date [...] Available No t Available Vitals Date Recorded Body height Heart rate Respiratory rate Oxygen saturation Oxygen saturation in Arterial blood by Pulse oximetry Body temperature Systolic blood pressure Diastolic blood pressure Provider Name and Address Organization Details Last Updated DateTime 4 180.34 cm 55 /min 18 /min 97 % 97 % 97.4 [degF] 130 mm[Hg] 86 mm[Hg] [facility] 4 12:59:18 Date Recorded Body height Heart rate Respiratory rate Oxygen saturation Oxygen saturation in Arterial blood by Pulse oximetry Body temperature Systolic blood pressure Diastolic blood pressure Provider Name and Address Organization Details Last Updated DateTime 4 180.34 cm 58 /min 18 /min 97 % 97 % 98.1 [degF] 152 mm[Hg] 82 mm[Hg] [facility] 4 14:55:21 Date Recorded Body height Heart rate Respiratory rate Oxygen saturation Oxygen saturation in Arterial blood by Pulse oximetry Body temperature Systolic blood pressure Diastolic blood pressure Provider Name and Address Organization Details Last Updated DateTime 4 180.34 cm 60 /min 16 /min 97 % 97 % 97.7 [degF] 144 mm[Hg] 82 mm[Hg] [facility] 4 09:05:20 Date Recorded Body height Body mass index (BMI) Body weight Provider Name and Address Organization Details Last Updated DateTime 02/21/2023 180.34 cm 26.4 kg/m2 63096.96 g Cristy Dawkins, TYPE ROLLING MACHINE OPERATOR-BC, PMHNP-BC [address] [place], [address], [facility] 02/22/2023 16:50:28 Date Recorded Heart rate Respiratory rate Oxygen saturation Oxygen saturation in Arterial blood by Pulse oximetry Body temperature Systolic blood pressure Diastolic blood pressure Provider Name and Address Organization Details Last Updated DateTime 3 53 /min 18 /min 97 % 97 % 97 [degF] 122 mm[Hg] 68 mm[Hg] [facility] 3 15:23:32 Date Recorded Body height Heart rate Respiratory rate Oxygen saturation Oxygen saturation in Arterial blood by Pulse oximetry Body temperature Systolic blood pressure Diastolic blood pressure Provider Name and Address Organization Details Last Updated DateTime 3 180.34 cm 55 /min 18 /min 97 % 97 % 97.2 [degF] 140 mm[Hg] 78 mm[Hg] [facility] 3 12:12:20 Date Recorded Body height Heart rate Respiratory rate Oxygen saturation Oxygen saturation in Arterial blood by Pulse oximetry Body temperature Systolic blood pressure Diastolic blood pressure Provider Name and Address Organization Details Last Updated DateTime 3 180.34 cm 57 /min 16 /min 97 % 97 % 97.6 [degF] 148 mm[Hg] 80 mm[Hg] [facility] 3 11:09:11 Social History Question Answer Notes LastModified by Organizat ion Details LastModified Time Tobacco Smoking Status Former Smoker Jose weathers [facility] 02/22/2023 16:48:48 Do You Have An Advance Directive? Yes [email or web address] Information not available 02/22/2023 Are You Blind Or Do You Have Difficulty Seeing? No [email or web address] Information not available 02/22/2023 Is Blood Transfusion Acceptable In An Emergency? Yes [email or web address] Information not available 02/22/2023 What Is Your Level Of Caffeine Consumption? Occasional [email or web address] Information not available 02/22/2023 What Type Of Software Configuration Analyst Do You Use? None [email or web address] Information not available 02/22/2023 What Is Your Code Status? DNR Information not available 02/03/2023 Are You Deaf Or Do You Have Serious Difficulty Hearing? No Information not available 02/22/2023 What Type Of Diet Are You Following? REGULAR [email or web address] Information not available 02/22/2023 What Is The Highest Grade Or Level Of School You Have Completed Or The Highest Degree You Have Received? [id number] Information not available 02/22/2023 Have There Been Any Changes To Your Family Or Social Situation? No [email or web address] Information not available 02/22/2023 When Did You Quit Smoking? 1-5yearssincel adia [email or web address] Information not available 02/22/2023 Are There Any Guns Present In Your Home? No [email or web address] Information not available 02/22/2023 Do You Have A Medical Power Of Senior Account Executive? Yes Miguel Galaviz (son-in-la w) Information not available 02/03/2023 What Was The Date Of Your Most Recent Tobacco Screening? 02/21/2023 [email or web address] Information not available 02/22/2023 How Many Children Do You Have? 0 [email or web address] Information not available 02/22/2023 What Is Your Current Pack Years? 10packyears [email or web address] Information not available 02/22/2023 Do You Have Any Pets? No [email or web address] Information not available 02/22/2023 What Is Your Relationship Status? [email or web address] Information not available 02/22/2023 Do You Use Your Seat Belt Or Car Seat Routinely? Yes [email or web address] Information not available 02/22/2023 Are You Sexually Active? No [email or web address] Information not available 02/22/2023 Do You Have Smoke And Carbon Monoxide Detectors In Your Home? Yes [email or web address] Information not available 02/22/2023 At What Age Did You Start Smoking Tobacco? 20 [email or web address] Information not available 02/22/2023 Are You Passively Exposed To Smoke? No [email or web address] Information not available 02/22/2023 Do You Participate In Social Media? No Information not available 02/22/2023 Do You Use Sunscreen Routinely? No [email or web address] Information not available 02/22/2023 How Many Years Have You Smoked Tobacco? 2 [email or web address] Information not available 02/22/2023 Do You Have Difficulty Walking Or Climbing Stairs? Yes [email or web address] Information not available 02/22/2023 Are You Currently In School? No [email or web address] Information not available 02/22/2023 Do You Have Any Dietary Restrictions? No [email or web address] Information not available 02/22/2023 Sex: Male Functional Status Question Answer Note LastModified by Organizat ion Details LastModified Time Do you use any illicit or recreational drugs? No [email or web address] Information not available 02/22/2023 Do you or have you ever used any other forms of tobacco or nicotine? No [email or web address] Information not available 02/22/2023 What is your level of alcohol consumption? None Information not available 02/22/2023 Are you currently employed? No [email or web address] Information not available 02/22/2023 Do you have transportation difficulties? No [email or web address] Information not available 02/22/2023 Are you able to walk? YESASSIST [email or web address] Information not available 02/22/2023 Do you have difficulty doing errands alone? Yes [email or web address] Information not available 02/22/2023 Are you able to care for yourself? Yes [email or web address] Information not available 02/22/2023 Do you have difficulty dressing or bathing? No [email or web address] Information not available 02/22/2023 What is your exercise level? None [email or web address] Information not available 02/22/2023 Mental Status Question Answer Note LastModified by Organizat ion Details LastModified Time Do you feel stressed (tense, restless, nervous, or anxious, or unable to sleep at night)? [id number] [email or web address] Information not available 02/22/2023 Do you have difficulty concentrating, remembering or making decisions? No [email or web address] Information no t available 02/22/2023 Family History Relationship Description Onset Age of this Age Resolved Age Notes LastModified by Organization Details LastModified Time Father Essential hypertension [email or web address] Not available 16:55:25 Medical History Condition Response Hematological Diseases / Disorders Y Obstructive Sleep Apnea Y Genitourinary Diseases / Disorders () Y Gastrointestinal Diseases / Disorders Y Neuropathy Y Neurological Diseases / Disorders Y Hypertension Y Immunizations Vaccine Type Date Status Note Provider Nam e and Address Organization Details Recorded Time Influenza, adjuvanted, quadrivalent, PF 03/10/2023 completed Anamaria Copeland jasiel [facility] 03/10/2023 16:06:40 Past Encounters Encounter ID Performer Location Encounter Start Date Encounter Closed Date Diagnosis/Indication Diagnosis SNOMED-CT Code Diagnosis ICD10 Code Diagnosis Note [id number] Cristy Dawkins TYPE ROLLING MACHINE OPERATOR-BC, PMHNP-BC [facility] [address] [place] [address] 02/21/2023 08:12:18 02/22/2023 19:33:44 Thoracic back pain 347136714 M54.6 Advance care planning 71 3094774 Z71.89 Essential hypertension 39427541 I10 taking medication . labs to eval levels. Neuropathy 059712171 G62 .9 safety when ambulating .numbness. Denies pain. 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 Low back pain 784014168 M54.50 Pain of le ft hip joint 8684812897 33730 M25.552 Essential hypertension 15219018 I10 taking medication . labs to eval levels. Anemia 340589770 D64.9 labs to eval levels. [id number] Cristy Dawkins TYPE ROLLING MACHINE OPERATOR-BC, PMHNP-BC [facility] [address] [place] [address] 07/12/2023 13:37:52 07/14/2023 14:17:46 Low back pain 989036209 M54.50 Essential hypertension 57638369 I10 Osteoarthr itis of multiple joints 127788462 M15.9 Dressing-g rooming self-care deficit 115256678 Z74.1 Obstructiv e sleep apnea of adult 5121800490 103 G47.33 [id number] Cristy Dawkins, TYPE ROLLING MACHINE OPERATOR-BC, PMHNP-BC [facility] [address] [place] [address] 08/03/2023 08:40:09 08/04/2023 08:52:46 Low back pain 466775904 M54.50 Osteoarthr itis of multiple joints 118465737 M15.9 Neuropathy 964719931 G62 .9 Health Concerns Section Related Observation LastModified by Organization Detai ls LastModified Time None Recorded Concern Status LastModified by Organization Details LastModified Time None Recorded Advance Directives Directive Y: Payers Encounter Date Sequence Insurance Name Policy Number Policy Greco Covered Member ID Greco Member ID Guarantor Name 02/21/2023 1 [employer] - GOLD PLUS (MEDICARE REPLACEMENT/A DVANTAGE - HMO) Crow Smith III [id number] Crow Smith 03/21/2023 1 [employer] - GOLD PLUS (MEDICARE REPLACEMENT/A DVANTAGE - HMO) Crow Smith III [id number] Crow Smith 06/14/2023 1 [employer] - GOLD PLUS (MEDICARE REPLACEMENT/A DVANTAGE - HMO) Crow Smith III [id number] Crow Smith 07/12/2023 1 [employer] - GOLD PLUS (MEDICARE REPLACEMENT/A DVANTAGE - HMO) Crow Smith III [id number] Crow Smith 08/03/2023 1 [employer] - GOLD PLUS (MEDICARE REPLACEMENT/A DVANTAGE - HMO) Crow Smith III [id number] Crow Smith Notes Date Note Type Note Provider Name and Address Organization Details Recorded Time 02/21/2023 text/html Back PainReporte d bypatient.Location:[facility] Severity:moderate (5-7) Associated Symptoms:no fever; no weak [...] numbness and weakness in BLE. YANIV Arias, MOUNIKA-YULIANA [address] [place], [address], [facility] 02/22/2023 17:35:34 03/21/2023 text/html Back PainReporte d bypatient.Location:[facility] Severity:moderate (5-7) Alleviating Factors:NSAIDS Associated Symptoms:no fever; no weak limbs; no numbness of the legs/feet; no tingling; no incontinence; no shortness of breath; no unintentional weight loss; no chills; no night sweats; no gait instability; no bowel/bladder symptoms; no recent increase in stress Neuropathy - having significant numbness and weakness in BLE. Denies burning.ABN labs noted on routine labs. YANIV Arias, NIEVES-YULIANA [address] [place], [address], [facility] 03/21/2023 12:42:48 06/14/2023 text/html Back PainReporte d bypatient.Location:[facility];pain radiating to the legs Severity:moderate (5-7) [...] dizziness, CP, SOB, or palpitations. YANIV Arias, [facility] [address] [place], [address], [facility] 06/14/2023 18:22:36 07/12/2023 text/html Joint [...] dizziness, CP, SOB, or palpitations. YANIV Arias, [facility] [address], [place], [address] [place] [address], [facility] 07/13/2023 07:30:33 08/03/2023 text/html Joint & [...] burning. Notable difficulties ambulating. Increasing fall risk. YANIV Arias, PMP-BC [address], [place], [address] [place] [address], [facility] 08/04/2023 07:07:27
--- OUTSIDE RECORDS SUMMARY | 2024-11-04 06:04 | XMS_ITS | Encounter Summary ---
Author Organization [facility] Address [address] [place] [address] Care Team Providers Care Professor Of Special Education Name Role Phone Jeremy Carreon MD Primary Care Provider [phone] Encounter Details Date Type Department Care Team (Latest Contact Info) Description 12/10/2003 Outpatient Historical [facility] SINAI Boyd, MD [facility] [address] [facility] [address] [place] [id number] HYPERTENSION NOS (Primary Dx) Social History Tobacco Use Types Packs/Day Years Used Date Smoking Tobacco: Never Assessed Sex and Gender Information Value Date Recorded Sex Assigned at Not on file Legal Sex Male 3:20 AM RESIDENCY COORDINATOR Gender Identity Not on file Sexual Orientation Not on file documented as of this encounter Plan of Treatment Not on file documented as of this encounter Visit Diagnoses Diagnosis Unspecified essential hypertension- Primary documented in this encounter Care Teams Professor Of Special Education Relationship Specialty Start Date End Date [place] [address] PCP - General Internal Medicine 05/17/19 02/14/23 documented as of this encounter
--- OUTSIDE RECORDS SUMMARY | 2024-11-04 06:04 | XMS_ITS | Encounter Summary ---
Author Organization [facility] Address [address] [place] [address] Care Team Providers Care Assistant Community Director Name Role Phone Jeremy Carreon MD Primary Care Provider [phone] Encounter Details Date Type Department Care Team (Latest Contact Info) Description 07/08/2006 Outpatient Historical HIS [facility] SINAI Boyd, MD Aristeo [address] [facility] [address] [place] [address] Routine General Medical Examination at a Health Care Facility (Primary Dx) Social History Tobacco Use Types Packs/Day Years Used Date Smoking Tobacco: Never Assessed Sex and Gender Information Value Date Recorded Sex Assigned at Not on file Legal Sex Male 3:20 AM JAVA WEB DEVELOPER Gender Identity Not on file Sexual Orientation Not on file documented as of this encounter Plan of Treatment Not on file documented as of this encounter Procedures Procedure Name Priority Date/Time Associated Diagnosis Comments URINALYSIS WITH MICROSCOPIC Routine 07/08/2006 10:56 AM JAVA WEB DEVELOPER TSH WITH REFLEX FT4 AND FT3 Routine 07/08/2006 10:53 AM JAVA WEB DEVELOPER CBC WITH DIFFERENTIAL Routine 07/08/2006 10:53 AM JAVA WEB DEVELOPER CBC WITH DIFFERENTIAL Routine 07/08/2006 10:53 AM JAVA WEB DEVELOPER PSA Routine 07/08/2006 10:53 AM JAVA WEB DEVELOPER LIPID PANEL Routine 07/08/2006 10:53 AM JAVA WEB DEVELOPER COMPREHENSIVE METABOLIC PANEL Routine 07/08/2006 10:53 AM JAVA WEB DEVELOPER documented in this encounter Results * URINALYSIS WITH MICROSCOPIC (07/08/2006 10:56 AM JAVA WEB DEVELOPER) COLOR UA Yellow INTERFACE SYSTEM CLARITY UA [...] /HPF INTERFACE SYSTEM 07/08/2006 10:5 6 AM JAVA WEB DEVELOPER Aristeo Boyd MD URINE ORDERABLES Edited Performing Organization Address [facility] Phone Number INTERFACE SYSTEM Refer to clinic/hospital department * CBC WITH DIFFERENTIAL (07/08/2006 10:53 AM JAVA WEB DEVELOPER) NEUTROPHILS 63 45 - 70 % INTERFAC [...] K/uL INTERFACE SYSTEM 07/08/2006 10:5 3 AM JAVA WEB DEVELOPER Aristeo Boyd MD HEMATOLOGY ORDERABLES Edited Performing Organization Address [facility] Phone Number INTERFACE SYSTEM Refer to clinic/hospital department * (ABNORMAL) CBC WITH DIFFERENTIAL (07/08/2006 10:53 AM JAVA WEB DEVELOPER) WBC 10.0(H) 4.0 - 9.8 K/uL INTERFACE [...] fL INTERFACE SYSTEM 07/08/2006 10:5 3 AM JAVA WEB DEVELOPER Aristeo Boyd MD HEMATOLOGY ORDERABLES Edited Performing Organization Address City/[facility] Co de Phone Number INTERFACE SYSTEM Refer to clinic/hospital department * TSH WITH REFLEX FT4 AND FT3 (07/08/2006 10:53 AM JAVA WEB DEVELOPER) TSH 2.14 0.27 - 4.20 uU/mL INTERFACE SYSTEM 07/08/2006 10:5 3 AM JAVA WEB DEVELOPER Aristeo Boyd MD CHEMISTRY ORDERABLES Edited Performing Organization Address City/[facility]/ZIP Co de Phone Number INTERFACE SYSTEM Refer to clinic/hospital department * PSA (07/08/2006 10:53 AM JAVA WEB DEVELOPER) PSA 1.9 0.0 - 4.0 ng/mL INTERFACE SYSTEM Comment:Performed on Donita M odular E170 System 07/08/2006 10:5 3 AM JAVA WEB DEVELOPER Aristeo Boyd MD CHEMISTRY ORDERABLES Edited INTERFACE SYSTEM Refer to clinic/hospital department * (ABNORMAL) LIPID PANEL (07/08/2006 10:53 AM JAVA WEB DEVELOPER) CHOLESTEROL 204(H) 100 - 199 mg/dL INTERFACE [...] [facility] at: [email or web address] Select: Lab Policies and Procedures Select: Reference Ranges - Lipids 07/08/2006 10:5 3 AM JAVA WEB DEVELOPER Aristeo Boyd MD CHEMISTRY ORDERABLES Edited INTERFACE SYSTEM Refer to clinic/hospital department * COMPREHENSIVE METABOLIC PANEL (07/08/2006 10:53 AM JAVA WEB DEVELOPER) GLUCOSE 90 65 - 99 mg/dL INTERFACE [...] [facility] [facility] [place] at: [email or web address] Select: Lab Policies and Procedures Select: Reference Ranges - GFR 07/08/2006 10:5 3 AM JAVA WEB DEVELOPER us Aristeo Boyd MD CHEMISTRY ORDERABLES Edited INTERFACE SYSTEM Refer to clinic/hospital department documented in this encounter Visit Diagnoses Diagnosis Routine general medical examination at a health care facility- Primary documented in this encounter Care Teams Assistant Community Director Relationship Specialty Start Date End Date Jeremy Carreon MD [address] [place] [phone] PCP - General Internal Medicine 05/17/19 02/14/23 documented as of this encounter
--- OUTSIDE RECORDS SUMMARY | 2024-11-04 06:04 | XMS_ITS | Encounter Summary ---
Author Organization [email or web address] Address [address] Navarro: Epic Prelude ADT [place] SIDHU [address] Care Team Providers Care Sider Mechanic Name Role Phone Jeremy Carreon MD Primary Care Provider [phone] Encounter Details Date Type Department Care Team (Late st Contact Info) Description 12/08/1988 Outpatient Historical Deb, MD Aristeo [address] [facility] [address] [place] [address] Social History Tobacco Use Types Packs/Day Years Used Date Smoking Tobacco: Never Assessed Sex and Gender Information Value Date Recorded Sex Assigned at Not on file Legal Sex Male 3:20 AM ADMINISTRATIVE AND PROGRAM SPECIALIST Gender Identity Not on file Sexual Orientation Not on file documented as of this encounter Plan of Treatment Not on file documented as of this encounter Visit Diagnoses Not on filedocumented in this encounter Care Teams Sider Mechanic Relationship Specialty Start Date End Date Jeremy Carreon MD [address] [email or web address] [phone] PCP - General Internal Medicine 05/17/19 02/14/23 documented as of this encounter
--- OUTSIDE RECORDS SUMMARY | 2024-11-04 06:04 | XMS_ITS | Encounter Summary ---
Author Organization [facility] Address [address] [place] [address] Care Team Providers Care Nurse Wound Care Name Role Phone Jeremy Carreon MD Primary Care Provider [phone] Encounter Details Date Type Department Care Team (Latest Contact Info) Description 03/27/2003 Outpatient Historical HIS [facility] SINAI Boyd, MD Aristeo [address] [facility] [address] [place] [address] HYPERTENSION NOS (Primary Dx) Social History Tobacco Use Types Packs/Day Years Used Date Smoking Tobacco: Never Assessed Sex and Gender Information Value Date Recorded Sex Assigned at Not on file Legal Sex Male 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
--- OUTSIDE RECORDS SUMMARY | 2024-11-04 06:04 | XMS_ITS | Continuity of Care Document ---
Author Organization [facility] Address [address] [place] [address] Phone Care Team Providers Care Applications Administrator Name Role Phone Mery Galindo Unavailable Unavailable [...] Date Provider Providers Copied on Encounter [facility], [address], [place], [place], [id number], tel:[phone] [facility] No Information 0-[address] , [address], [place], [place], [facility], [place]. tel:[phone] [facility], [address], [place], [place], [address], [place] tel:[phone] [facility] No Information 9-[address] [address], [place], [place], [facility], [place]. tel:[phone] Referring Provider: Gerardo sanchez, [address], [place], [facility]. tel:[phone] Office/outpat ient Visit, [facility], [address] [place] [address] [address], [place], [place], [id number], tel:[phone] [facility] No Information Luciano-0 6-201 0 Krishnasamy Gerardo. [address] [facility] [address], [place], [facility], [place]. tel:[phone] Office/outpat ient Visit, [facility], [address] [place] [address] [address], [place], [place], [id number], tel:[phone] [facility] No Information Francesco-0 2-200 9 Krishnasamy Gerardo. [address] [place], [place] [address], [facility], [place]. tel:[phone] Referring Provider: Gerardo sanchez, [facility] [address], [facility]. tel:[phone] [facility], [address] [place], [place] [address] [address], [place], [place], [address], tel:[phone] [facility] No Information Nov-1 6-200 9 Krishnasamy Gerardo. [facility] Corporate [address], [facility], [place]. tel:[phone] Referring Provider: Gerardo sanchez, [address] [facility] [address], [place], [facility]. tel:[phone] [facility], [address] [place] [address] [address], [place], [place], [address], tel:[phone] [facility] No Information Apr-0 8-200 9 Krishnasamy Gerardo. [facility] Corporate [facility] [address], [address], [place]. tel:[phone] Referring Provider: Gerardo sanchez, [address] [facility] [address], [place], [address]. tel:[phone] [facility], [address], [place], [place], [id number], [place] tel:[phone] [facility] No Information [address] Goodrich OD Tonny. [address], [place], [address], [place]. tel:[phone] Family History Family Member Type Diagnosis Age At Onset No Information Payers Payer name Insurance type Covered libertarian ID Zahida rainey(s) [employer] [id number] Social History Type Description Quantity Date Captured [...]
--- OUTSIDE RECORDS SUMMARY | 2024-11-04 06:04 | XMS_ITS | Clinical Summary ---
Author Organization [facility] Address [address] [address] Care Team Providers Care Collections Analyst Name Role Phone Draren Butler DO Primary Care Provider [phone] Source Comments [facility],non-owned Affiliates and Associated Physician Practices is amultiple site organization consisting of ambulatory clinics and hospital sitesin [place], [place], [place] and [place]. This disclosure is being madepursuant to the Care Everywhere program and may not contain all information available regarding this patient. Last updated 18.[facility] Allergies Active Allergy Reactions Criticality Noted Date [...] Date Resolved Date Subdural hematoma 07/04/2024 07/07/2024 Family History Medical History Relation Name Comments [...] care, and heating? Not very hard 07/05/2024 [facility] Occupat ional Health - Occupational Stress [...] any time in the past [address] [facility], were you homeless or living in a long-term (including now)? 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 Gender Identity Not on file Sexual Orientation Not on file Last Filed Vital Signs Vital Sign Reading Time Taken Comments Blood Pressure 129/91 07/10/2024 4:09 PM SERVICE RESTORER EMERGENCY Pulse 81 07/10/2024 4:09 PM SERVICE RESTORER EMERGENCY Temperature 36.8 C (98.2 F) 07/10/2024 4:09 PM SERVICE RESTORER EMERGENCY Respiratory Rate 18 07/10/2024 4:09 PM SERVICE RESTORER EMERGENCY Oxygen Saturation 95% 07/10/2024 4:09 PM SERVICE RESTORER EMERGENCY Inhaled Oxygen Concentration - - Weight 72.5 kg (159 lb 13.3 oz) 07/10/2024 4:00 AM SERVICE RESTORER EMERGENCY Height 177.8 cm (5' 10) 07/05/2024 8:22 PM SERVICE RESTORER EMERGENCY Body Mass Index 22.93 07/05/2024 8:22 PM SERVICE RESTORER EMERGENCY Plan of Treatment Health Maintenance Due Date [...] 2024 INFLUENZA VACCINE (Season Ended) 2025 04/06/20 HEPATITIS B VACCINE Aged Out No longe [...] patient's age to complete this topic Insurance HUMAN MEDICARE ADV HMO & PPO Care Teams Collections Analyst Relationship Specialty Start Date End Date Darren Butler DO [address] [place] [phone] PCP - General Internal Medicine 07/05/24
--- OUTSIDE RECORDS SUMMARY | 2024-11-04 06:04 | XMS_ITS | Continuity of Care Document ---
Author Organization [facility] Address [address] [place] [address] [address] [place] [address] Phone Care Team Providers Care Drilling Plant Operator Name Role Phone Carlos DICKINSON, Emy Unavailable [...] losartan (unknown strength) Not Available - Active propanolol (unknown strength) Not Available - No Longer Active Tenormin 50 mg tablet - No Longer Active VITAMIN B COMPLEX (unknown strength) Not Available - No Longer Active OCUVITE ADULT 50 PLUS (unknown strength) Not Available - No Longer Active Procedures Procedure Date EYE EXAM & [...] Provider Providers Copied on Encounter [facility], [address] [place] [address] [address], [place], [place], [id number], [place] tel:[phone] OPH CONSULT CAROL VALENTIN blurry vision (chief complaint) Cataract, nuclear sclerotic senile, bilateralEctrop ion of both eyes, unspecified ectropion type, unspecified eyelidVitreous degeneration of both eyes Mar-3 0- 1 Carlos Quevedo. [address], [place], [place], [id number] , [place]. tel:[phone] Referring Provider: Jeremy Carreon MD, [address], [place], [address]. tel:[phone] OFFICE/OUTPA TIENT VISIT, [facility], [address] [place] [address], [id number], [place] tel:[phone] OPH CONSULT CAROL VALENTIN dryness (chief complaint) Vitreous degeneration of both eyesCataract, nuclear sclerotic senile, bilateralEctrop ion of both eyes, unspecified ectropion type, unspecified eyelid October- 8 Gonzalezedmundo Quevedo. [address], [address], [place], [place], [id number] , [place]. tel:[phone] Referring Provider: Emy Kingsley, [address], [place], [address]. tel:[phone] OFFICE/OUTPA TIENT VISIT, [facility], [address] [place] [address], [id number], [place] tel:[phone] OPH CONSULT CAROL VALENTIN blurry vision (chief complaint) Vitreous degeneration of both eyesCataract, nuclear sclerotic senile, bilateral Nov- 5 Carlos Quevedo. [address], [address], [place], [place], [id number] , [place]. [phone] Referring Provider: Emy Kingsley, [address], [place], [address]. tel:[phone] OFFICE/OUTPA TIENT VISIT, [facility], [address] [place] [address], [id number], [place] tel:[phone] OPH CONSULT CAROL VALENTIN Senile nuclear sclerosisVitreo us degeneration 2 Roque Nick. [address], [address], [place], [place], [id number] , [place]. tel:[phone] Family History Family Member Type Diagnosis Age At Onset Mother Problem (finding) glaucoma Payers Payer name Insurance type Covered republican ID Authoriza tion(s) [employer] HMO [id number] Social History Type Description Quantity Date Captured Comments Alcohol Use Details Caffeine Use Details Unknown Tobacco Use Status Current non-smoker Smoking Status Never smoker Sex Male Vital Signs Date / Time: Height Weight BMI Pulse Rate Blood Pressure Temperature Respiratory Rate Body Surface Area Head Circumference Head Circ. Percentile Wt./Spenser. Percentile BMI percentile Pulse Ox Inhaled Ox 1:06 PM 71.00 in 93.894 kg (207.00 lbs) 28.8 7 kg/m eter (2) 98.10 F Chief Complaint And Reason For Visit From encounter dated '09/02/2020 13:20'. blurry vision (chief complaint). Description: The 80 year old male presents for evaluation of blurry vision in the right eye and left eye. It started about 2 year(s) ago. The condition is constant. The condition is mild. Reason For Referral Reason For Referral No [...] are not as sharp in both distances Functional Status Date Functional Assessmen t No Information Instructions Date Instruction Additional Infor ruiz Impression/Plan Related to Catar act, nuclear sclerotic [...] Vitreous degeneration of both ey es: H43.813 Patient Care Teams Name Effective Dates (start - stop) Status Members No Information
--- OUTSIDE RECORDS SUMMARY | 2024-11-04 06:04 | XMS_ITS | Encounter Summary ---
Author Organization [facility] Address [address] [place] [address] Care Team Providers Care Co Supervisor Grounds And Landscape Name Role Phone Jeremy Carreon MD Primary Care Provider [phone] Encounter Details Date Type Department Care Team (Latest Contact Info) Description 07/19/[address] 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
--- OUTSIDE RECORDS SUMMARY | 2024-11-04 06:04 | XMS_ITS | Continuity of Care Document ---
Author Organization [facility] Address [address] [place] [address] Phone Care Team Providers Care Industrial Conveyor Belt Repairer Name Role Phone Holly Nicolas MD Unavailable [...] Diagnoses Date Provider Providers [facility] [address], [place], [place], [id number] , tel: [phone] [facility] No Information 7 Maria Isabel Barrera. [address] [place] [address], [place], [place], [id number], [place]. [phone] [facility], [address], [place], [place], [address] , tel: [phone] [facility] No Information 0 Maria Isabel Barrera. [address] [place] [address], [place], [place], [address], . [phone] [facility], [address], [place], [place], [address] , [place] tel:[phone] [facility] Mixed hyperlipidemia Jul- 7 Vonjv Emy. [address] [place] [address], [place], [place], [address], [place]. tel:[phone] Referring Provider: Holly Baires, [address] [place] [address], [place], [address] . tel:[phone] [facility], [address], [place], [place], [address] , [place] tel:[phone] [facility] Essential hypertensionMixed hyperlipidemiaThrom bocytopeniaPolycyth emia veraObstructive sleep apnea syndromeBenign prostatic hyperplasia with lower urinary tract symptoms, unspecified morphologyMale erectile dysfunction, unspecifiedDermatit is 7 Kj Sarabia. [address] [place] [address], [id number], [place]. tel:[phone] Referring Provider: Holly Baires, [address] [place] [address], [place], [address] . tel:[phone] [facility], [address], [place], [place], [address] , tel: [phone] [facility] No Information Mar-2 1-201 6 Brooklynn Bain. [address] [place] [address], [place], [place], [address]. tel:[phone] [facility], [address], [place], [place], [address] , [place] tel: [phone] [facility] No Information 5 6 Maria Isabel Barrera. [address] [place] [address], [place], [place], [address], [place]. [phone] Referring Provider: Holly Baires, [address] [place] [address], [place], [address] . tel:[phone] [facility], [address], [place], [place], [address] , [place] tel: [phone] [facility] FolliculitisEssenti al hypertensionMixed hyperlipidemiaObstr uctive sleep apnea syndromePolycythemi a veraThrombocytopeni aBenign prostatic hyperplasia with lower urinary tract symptoms, unspecified morphologyMale erectile dysfunction, unspecifiedPersonal history of colonic polyps Sep-0 8 6 Kj Sarabia. [address] [place] [address], [id number], [place]. [phone] Referring Provider: Holly Baires, [address] [place] [address], [place], [address] . tel:[phone] [facility], [address], [place], [place], [address] , tel:[phone] [facility] No Information Ahsan- 0-201 6 Neetu Erazo. [address] [place] [address], [id number], [place]. tel:[phone] [facility], [address], [place], [place], [address] , tel: [phone] [facility] Encounter for general adult medical examination without abnormal findingsEssential (primary) hypertensionMixed hyperlipidemiaPolyc ythemia veraObstructive sleep apnea (adult) (pediatric)Benign prostatic hyperplasia with lower urinary tract symptoms, unspecified morphologyMale erectile dysfunction, unspecifiedMononeur opathy, unspecifiedPersonal history of colonic polyps Sep- 6 Maria Isabel Barrera. [address] [place] [address], [place], [place], [address], . [phone] Referring Provider: Holly Baires, [address] [place] [address], [place], [address] . tel:[phone] [facility], [address], [place], [place], [address] , tel: [phone] [facility] Benign prostatic hyperplasia with lower urinary tract symptoms, unspecified morphology Sep- 6 Brooklynn Bain. [address] [place] [address], [place], [place], [address]. tel:[phone] [facility], [address], [place], [place], [address] , tel: [phone] [facility] Candidal dermatitis 5 Maria Isabel Barrera. [address] [place] [address], [place] [address], [place], [place], [address], . tel:[phone] [facility], [address], [place], [place], [address] , [place] tel:[phone] [facility] Essential (primary) hypertensionMixed hyperlipidemiaObstr uctive sleep apnea (adult) (pediatric)Polycyth emia veraPersonal history of colonic polypsMononeuropath y, unspecifiedMale erectile dysfunction, unspecifiedEncounte r for immunizationCandida l dermatitis 5 Kj Sarabia. [address] [place] [address], [id number], . tel:[phone] Referring Provider: Holly Baires, [address] [place] [address] [address], [place], [address] . tel:[phone] [facility], [address], [place], [place], [address] , [place] tel: [phone] [facility] Essential (primary) hypertensionPersona l history of colonic polypsMale erectile dysfunction, unspecifiedMixed hyperlipidemiaMonon europathy, unspecifiedObstruct kirsten sleep apnea (adult) (pediatric)Polycyth emia vera 5 [place] Johny Sarabia. [address] [place] [address], [address], [place], [place], [address], [place]. tel:[phone] [facility], [address], [place], [place], [address] , [place] tel: [phone] [facility] Mixed hyperlipidemiaPolyc ythemiaHigh blood pressureObstructive sleep apneaAllergic dermatitis 5 Maria Isabel Barrera. [address] [place] [address], [facility] [address], [place], [place], [address], [place]. tel:[phone] Referring Provider: Holly Baires, [address] [place] [address], [place], [address] . tel:[phone] [facility], [address], [place], [place], [address] , [place] tel: [phone] [facility] No Information 5 Maria Isabel Barrera. [address] [place] [address], [place], [place], [address], [place]. tel:[phone] [facility], [address], [place], [place], [address] , [place] tel:[phone] [facility] No Information 4 Maria Isabel Barrera. [address] [place] [address], [place], [place], [address], [place]. tel:[phone] [facility], [address], [place], [place], [address] , [place] tel:[phone] [facility] No Information 4 Maria Isabel Barrera. [address] [place] [address], [address], [place], [place], [address], [place]. [phone] [facility], [address], [place], [place], [address] , [place] tel:[phone] [facility] History of colonic polypsHigh blood pressureObstructive sleep apneaNeuropathyErec tile dysfunction 4 Maria Isabel Barrera. [address] [place] [address], [address], [place], [place], [address], [place]. [phone] Referring Provider: Holly Baires, [address] [place] [address] [address], [place], [address] . tel:[phone] Family History Family Member Type Diagnosis Age [...] er Payers Payer name Insurance type Covered republican ID Authoriza tion(s) [employer] [id number] [employer] [id number] [employer] [id number] [employer] [id number] Social History Type Description Quantity Date Captured [...]
--- NOTE | 2024-11-04 06:28 | PC.NURSE ---
This RN spoke with pts facility. pt to arrive back to facility around 0730
[2024-11-04 06:58] VITALS: BP 120/81; PULSE 62; RESP 19; O2SAT 99
[2024-11-04 07:00] VITALS: BP 120/81; PULSE 62; RESP 19; O2SAT 99
[2024-11-04 07:38] VITALS: BP 112/69; PULSE 69; RESP 14; O2SAT 99
== END 2024-11-04 07:39 ==
PROVIDERS: Emergency Provider Student in an Organized Health Care Education/Training Program
DX: K62.5 Hemorrhage of anus and rectum (principal); F03.90 Unspecified dementia, unspecified severity, without behavioral disturbance, psychotic disturbance, mood disturbance, and anxiety; Z87.891 Personal history of nicotine dependence; Z85.828 Personal history of other malignant neoplasm of skin; G47.30 Sleep apnea, unspecified; E78.5 Hyperlipidemia, unspecified; I11.9 Hypertensive heart disease without heart failure; G62.9 Polyneuropathy, unspecified
CPT/HCPCS: 36415; 80053; 85025; 85610; 85730; 86850; 86900; 86901; 99283

== ENCOUNTER 2024-11-20 03:55 | Emergency (ER) | payer MEDICARE, SELFPAY ==
[2024-11-20] VITALS (11 sets, daily range): BP systolic 104–149; BP diastolic 60–137; PULSE 71–82; RESP 9–16; TEMP 36.4–36.6; O2SAT 95–100
--- NOTE | ~2024-11-20 | CT_ITS ---
Non-contrast Head CT History: Head injury COMPARISON: 09/28/2024 Technique: Axial non-contrast imaging of the brain was performed. Dose reduction technique was used on this scan by utilizing automated exposure control and iterative reconstruction technique. The dose -length product (DLP) was 756.67 mGy-cm. Findings: There is no evidence of intracranial hemorrhage, mass lesion, or acute infarct. Brain par enchyma appears normal. The ventricles and subarachnoid spaces are normal in size. The calvarium ap pears normal. The visualized paranasal sinuses and mastoid air cells are clear. Impression: No significant abnormality seen. Reviewed, dictated and finalized at location . Impression: No significant abnormality seen.
--- NOTE | ~2024-11-20 | CT_ITS ---
Noncontrast CT scan of the cervical spine Technique: Multiple contiguous axial [address] images of the cervical spine were obtained and rec onstructed in 2D sagittal and coronal planes on the acquisition scanner. Dose reduction technique was used on this scan by utilizing automated exposure control, adjustment of the mA and/or kV according to patient size. The dose-length product (DLP) was 239.60 mGy-cm. Clinical History: Pain COMPARISON: 09/28/2024 Findings: No fractures or dislocations. Stable osseous alignment from prior exam. There is advanced degenerative disc narrowing at C4-C5, C5-C6, and C6-C7. There is left neural foraminal narrowing at C 4-C5. There is bilateral severe neural foraminal narrowing at C5-C6 and C6-C7. No prevertebral soft t issue swelling. Impression: No fracture or subluxation of the cervical spine. Degenerative spondylosis, as above. Reviewed, dictated and finalized at [facility]. Impression: No fracture or subluxation of the cervical spine. Degenerative spondylosis, as above.
[2024-11-20 04:06] LABS: Glucose Point of Care 87 mg/dl (65-105)
--- OUTSIDE RECORDS SUMMARY | 2024-11-20 04:27 | XMS_ITS | Encounter Summary ---
[facility] Organization [facility] Address [address] [place] [address] Care Team Providers Care Cannoneer Name Role Phone Jeremy Carreon MD Primary Care Provider [phone] Encounter Details Date Type Department Care Team (Latest Contact Info) Description 03/27/2003 Outpatient Historical HIS [facility] SINAI Boyd, MD [facility] [address] [facility] [address] [place] [address] HYPERTENSION NOS (Primary Dx) Social History Tobacco Use Types Packs/Day Years Used Date Smoking Tobacco: Never Assessed Sex and Gender Information Value Date Recorded Sex Assigned at Not on file Legal Sex Male 3: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
--- OUTSIDE RECORDS SUMMARY | 2024-11-20 04:27 | XMS_ITS | Clinical Summary ---
Author Organization [facility]3] Selina beaulieu Ha[facility] Address [address] [place] [address] Care Team Providers Care Lumber Yard Worker Name Role Phone Unavailable Primary Care Provider [...] on file Legal Sex Male 3:20 AM APPLIED BEHAVIOR SPECIALIST Gender Identity Not on file Sexual [...] Height 182.9 cm (6') 05/12/2021 2:31 PM APPLIED BEHAVIOR SPECIALIST Body Mass Index 24.22 05/12/2021 2:31 PM APPLIED BEHAVIOR SPECIALIST Plan of Treatment Health Maintenance Due Date Last Done Comments DTAP/TDAP/TD VACCINES (1 - Tdap) 1961 PNEUMOCOCCAL VACCINE 50+ YEA RS (1 of 1 - PCV) 1992 02/05/2012 ZOSTER VACCINE (1 of 2) 1992 RSV VACCINE (60+ or ) (1 - 1-dose 75+ series) 2017 INFLUENZA VACCINE (#1) 2024 04/06/2022, 2021 Insurance [employer] [facility]
--- OUTSIDE RECORDS SUMMARY | 2024-11-20 04:27 | XMS_ITS | Encounter Summary ---
Author Organization [facility] Address [address] [place] [address] Care Team Providers Care Clinical Laboratory Manager Name Role Phone Jeremy Carreon MD Primary Care Provider Encounter Details Date Type Department Care Team (Latest Contact Info) Description 12/10/2003 Outpatient Historical HIS [facility] SINAI Boyd, MD [place] [address] [facility] [address] [place] [address] HYPERTENSION NOS (Primary Dx) Social History Tobacco Use Types Packs/Day Years Used Date Smoking Tobacco: Never Assessed Sex and Gender Information Value Date Recorded Sex Assigned at Not on file Legal Sex Male 3:20 AM TELEPHONER Gender Identity Not on file Sexual Orientation Not on file documented as of this encounter Plan of Treatment Not on file documented as of this encounter Visit Diagnoses Diagnosis Unspecified essential hypertension- Primary documented in this encounter Care Teams Clinical Laboratory Manager Relationship Specialty Start Date End Date Jeremy [place]reon [place] [address] PCP - General Internal Medicine 05/17/19 02/14/23 documented as of this encounter
--- OUTSIDE RECORDS SUMMARY | 2024-11-20 04:27 | XMS_ITS | Data Portability ---
Author Organization [place] [facility] [employer] Address [address] [place] [address] Care Team Providers Care Lead Javascript Developer Name Role Phone MARK ANTHONY TORREZ Gear And Spline Grinder OMID CANALES Billet Shearer GLORIA SAUNDERS Industrial Furnace Fabricator CHERY VACA Medical Oncologist [phone] MO CARMEN OTHER Assessment Encounter Date Assessment [...] plan. F/U 12 weeks, sooner if needed [email or web address] Not available 03/21/2023 12:42:27 06/14/2023 06/14/2023 Medication [...] plan. F/U 12 weeks, sooner if needed [email or web address] Not available 06/14/2023 18:20:43 07/12/2023 07/12/2023 Medication Changes Having significant joint pain along with low back, hip pain. Having notable deficits with self-care and ADL. PT/OT ordered. Increased fall risk. Taking Naproxen BID for pain which has been helping. However, did discuss about NSAIDs and kidney function. Counseled on ensuring to drink appropriate fluid levels. 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 HTN controlled with medication but slightly elevated [...] plan. F/U 12 weeks, sooner if needed [email or web address] Not available 07/13/2023 07:29:53 08/03/2023 08/03/2023 Medication [...] auto diff* [address], [place], [address], 4 13:42:47 CMP, serum or plasma [address], [place], [address], 4 13:42:48 magnesium, serum or plasma [address], [place], [address], 4 13:42:49 iron, serum [address], [place], [address], 4 13:42:49 vitamin B12, serum [address], [place], [address], 4 13:42:50 unlisted lab - folate [address], [place], [address], 4 13:42:48 CMP, serum or plasma [address], [place], [address], 3 12:29:59 unlisted lab - complete blood count with auto diff* 2022 023 [email or web address] [facility], [address], [place], [address], 3 12:30:00 magnesium, serum or plasma 2022 023 [facility], [address], [place], [address], 3 12:29:59 Referral occupation al therapist referral 2023 024 [email or web address] [place], [address], [place], [address], 4 13:43:41 physical therapist referral 2023 024 [email or web address] [place], [address], [place], [address], 4 13:43:24 physical therapist referral 2023 024 [email or web address] [place], [address], [place], [address], 4 13:43:54 dermatolog ist referral - Back of scalp 2022 023 [email or web address] [facility] [place], [address], [place], [address], 3 12:05:49 Procedures None recorded. Surgeries None recorded. Imaging XR, hip + pelvis, unilateral , 4 or more view 2023 024 [facility]), [address], [place], [address], 4 14:50:42 XR, sacrum + coccyx, 2 or more view 2023 024 [email or web address] [facility] ([facility]), [address], [place], [address], 4 15:47:01 XR, lumbar spine, 2 view 2023 024 [email or web address] [facility] ([facility]), [address], [place], [address], 4 15:47:13 XR, thoracic spine, 3 view 2022 023 [email or web address] [facility] ([facility]), [address], [place], [address], 3 19:33:44 Medication Orders None recorded. Patient TargetsNo targets recorded. 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 Referral for N eoplasm of uncertain behavior [...] [facility] [address], [place], [address], 03/02/2023 12:21:36 03/01/20 23 03/01/2023 COMPL ETE BLOOD COUNT WITH AUTO DIFF* RBC 4.97 10E6/ uL 4.60-6 .00 Not Available [facility] [address], [place], [address], 03/02/2023 12:21:36 03/01/20 23 03/01/2023 COMPL ETE BLOOD COUNT WITH AUTO DIFF* HGB 15.4 g/dL 14.0-1 8.0 Not Available [facility] [address], [place], [address], 03/02/2023 12:21:36 03/01/20 23 03/01/2023 COMPL ETE BLOOD COUNT WITH AUTO DIFF* HCT 45.7 % 40.0-5 4.0 Not Available [facility] [address], [place], [address], 03/02/2023 12:21:36 03/01/20 23 03/01/2023 COMPL ETE BLOOD COUNT WITH AUTO DIFF* MCV 92 fL 80-100 Not Available [facility] [address], [place], [address], 03/02/2023 12:21:36 03/01/20 23 03/01/2023 COMPL ETE BLOOD COUNT WITH AUTO DIFF* MCH 31 pg 26-32 Not Available [facility] [address], [place], [address], 03/02/2023 12:21:36 03/01/20 23 03/01/2023 COMPL ETE BLOOD COUNT WITH AUTO DIFF* MCHC 34 g/dL 32-36 Not Available [facility] [address], [place], [address], 03/02/2023 12:21:36 03/01/20 23 03/01/2023 COMPL ETE BLOOD COUNT WITH AUTO DIFF* RDW 13.6 % 11.5-1 4.5 Not Available [facility] [address], [place], [address], 03/02/2023 12:21:36 09/26/20 23 03/01/2023 COMPL ETE BLOOD COUNT WITH AUTO DIFF* plt 136 10E3/ uL 150-45 0 low Not Available [facility] [address], [place], [address], 03/02/2023 12:21:36 03/01/20 23 03/01/2023 COMPL ETE BLOOD COUNT WITH AUTO DIFF* neut% 68.3 % 50.0-7 0.0 Not Available [facility] [address], [place], [address], 03/02/2023 12:21:36 03/01/20 23 03/01/2023 COMPL ETE BLOOD COUNT WITH AUTO DIFF* lymph% 22.1 % 18.0-4 2.0 Not Available [facility] [address], [place], [address], 03/02/2023 12:21:36 03/01/20 23 03/01/2023 COMPL ETE BLOOD COUNT WITH AUTO DIFF* mono% 5.9 % 2.0-11 .0 Not Available [facility] [address], [place], [address], 03/02/2023 12:21:36 03/01/20 23 03/01/2023 COMPL ETE BLOOD COUNT WITH AUTO DIFF* eos% 2.6 % 1.0-3. 0 Not Available [facility] [address], [place], [address], 03/02/2023 12:21:36 03/01/20 23 03/01/2023 COMPL ETE BLOOD COUNT WITH AUTO DIFF* baso% 0.8 % 0.0-2. 0 Not Available [facility] [address], [place], [address], 03/02/2023 12:21:36 03/01/20 23 03/01/2023 COMPL ETE BLOOD COUNT WITH AUTO DIFF* Ig% 0.3 % 0.0-0. 6 Not Available [facility] [address], [place], [address], 03/02/2023 12:21:36 03/01/20 23 03/01/2023 COMPL ETE BLOOD COUNT WITH AUTO DIFF* neut# 4.53 10E3/ uL 2.30-8 .10 Not Available [facility] [address], [place], [address], 03/02/2023 12:21:36 03/01/20 23 03/01/2023 COMPL ETE BLOOD COUNT WITH AUTO DIFF* lymph# 1.46 10E3/ uL 0.80-4 .80 Not Available [facility] [address], [place], [address], 03/02/2023 12:21:36 03/01/20 23 03/01/2023 COMPL ETE BLOOD COUNT WITH AUTO DIFF* mono# 0.39 10E3/ uL 0.45-1 .30 low Not Available [facility] [address], [place], [address], 03/02/2023 12:21:36 03/01/20 23 03/01/2023 COMPL ETE BLOOD COUNT WITH AUTO DIFF* eos# 0.17 10E3/ uL 0.00-0 .40 [facility] Available [facility] [address], [place], [address], 03/02/2023 12:21:36 03/01/20 23 03/01/2023 COMPL ETE BLOOD COUNT WITH AUTO DIFF* baso# 0.05 10E3/ uL 0.00-0 .10 Not Available [facility] [address], [place], [address], 03/02/2023 12:21:36 03/01/20 23 03/01/2023 COMPL ETE BLOOD COUNT WITH AUTO DIFF* Ig# 0.02 10E3/ uL 0.00-0 .09 Not Available [facility] [address], [place], [address], 03/02/2023 12:21:36 03/01/20 23 03/01/2023 COMPR EHENS [...] Available [facility] [address], [place], [address], 03/02/2023 12:21:37 03/01/20 23 03/01/2023 COMPR EHENS DAVID METAB OLIC PANEL * BUN 16 mg/dL 8-23 Not Available [facility] [address], [place], [address], 03/02/2023 12:21:37 03/01/20 23 03/01/2023 COMPR EHENS DAVID METAB OLIC PANEL * calcium 8.7 mg/dL 8.8-10 .2 low Not Available [facility] [address], [place], [address], 03/02/2023 12:21:37 03/01/20 23 03/01/2023 COMPR EHENS DAVID METAB OLIC PANEL * creatinine 1.14 mg/dL 0.80-1 .30 Not Available [facility] [address], [place], [address], 03/02/2023 12:21:37 03/01/20 23 03/01/2023 COMPR EHENS DAVID METAB OLIC PANEL * sodium 143 mmol/ L 136-14 5 Not Available [facility] [address], [place], [address], 03/02/2023 12:21:37 03/01/20 23 03/01/2023 COMPR EHENS DAVID METAB OLIC PANEL * potassium 4.5 mmol/ L 3.5-5. 1 Not Available [facility] [address], [place], [address], 03/02/2023 12:21:37 03/01/20 23 03/01/2023 COMPR EHENS DAVID METAB OLIC PANEL * chloride 106 mEq/L 98-107 Not Available [facility] [address], [place], [address], 03/02/2023 12:21:37 03/01/20 23 03/01/2023 COMPR EHENS DAVID METAB OLIC PANEL * carbon dioxide 28 mmol/ L 23-30 Not Available [facility] [address], [place], [address], 03/02/2023 12:21:37 03/01/20 23 03/01/2023 COMPR EHENS DAVID METAB OLIC PANEL * total protein 5.9 g/dL 6.2-8. 1 low Not Available [facility] [address], [place], [address], 03/02/2023 12:21:37 03/01/20 23 03/01/2023 COMPR EHENS DAVID METAB OLIC PANEL * albumin 3.7 g/dL 3.2-4. 6 Not Available [facility] [address], [place], [address], 03/02/2023 12:21:37 03/01/20 23 03/01/2023 COMPR EHENS DAVID METAB OLIC PANEL * globulin 2.2 g/dL 2.3-3. 4 low Not Available [facility] [address], [place], [address], 03/02/2023 12:21:37 03/01/20 23 03/01/2023 COMPR EHENS DAVID METAB OLIC PANEL * A/G ratio 1.7 g/dL 0.8-2. 0 Not Available [facility] [address], [place], [address], 03/02/2023 12:21:37 03/01/20 23 03/01/2023 COMPR EHENS DAVID METAB OLIC PANEL * alkaline phosphatase 80 U/L 30-120 Not Available [facility] [address], [place], [address], 03/02/2023 12:21:37 03/01/20 23 03/01/2023 COMPR EHENS DAVID METAB OLIC PANEL * ALT (SGPT) 17 U/L 13-40 Not Available [facility] [address], [place], [address], 03/02/2023 12:21:37 03/01/20 23 03/01/2023 COMPR EHENS DAVID METAB OLIC PANEL * AST (SGOT) 15 U/L 19-48 low Not Available [facility] [address], [place], [address], 03/02/2023 12:21:37 03/01/20 23 03/01/2023 COMPR EHENS DAVID METAB OLIC PANEL * bilirubin, total 0.79 mg/dL 0.20-1 .10 Not Available [facility] [address], [place], [address], 03/02/2023 12:21:37 03/01/20 23 03/01/2023 COMPR EHENS [...] Available [facility] [address], [place], [address], 03/02/2023 12:21:37 03/01/2003/01/2023 MAGNE SIUM* magnesium 2.00 mg/dL 1.60-2 .40 Not Available [facility] [address], [place], [address], 03/02/2023 12:21:37 06/23/19 24 06/23/2023 COMPL ETE BLOOD COUNT WITH AUTO DIFF* WBC 7.19 10E3/ uL 4.50-1 1.50 Not Available [facility] [address], [place], [address], 06/24/2023 13:42:47 06/23/19 24 06/23/2023 COMPL ETE BLOOD COUNT WITH AUTO DIFF* RBC 4.55 10E6/ uL 4.60-6 .00 low Not Available [facility] [address], [place], [address], 06/24/2023 13:42:47 06/23/19 24 06/23/2023 COMPL ETE BLOOD COUNT WITH AUTO DIFF* HGB 13.8 g/dL 14.0-1 8.0 low Not Available [facility] [address], [place], [address], 06/24/2023 13:42:47 06/23/19 24 06/23/2023 COMPL ETE BLOOD COUNT WITH AUTO DIFF* HCT 40.5 % 40.0-5 4.0 Not Available [facility] [address], [place], [address], 06/24/2023 13:42:47 06/23/19 24 06/23/2023 COMPL ETE BLOOD COUNT WITH AUTO DIFF* MCV 89 fL 80-100 Not Available [facility] [address], [place], [address], 06/24/2023 13:42:47 06/23/19 24 06/23/2023 COMPL ETE BLOOD COUNT WITH AUTO DIFF* MCH 30 pg 26-32 Not Available [facility] [address], [place], [address], 06/24/2023 13:42:47 06/23/19 24 06/23/2023 COMPL ETE BLOOD COUNT WITH AUTO DIFF* MCHC 34.1 g/dL 32.0-3 6.0 Not Available [facility] [address], [place], [address], 06/24/2023 13:42:47 06/23/19 24 06/23/2023 COMPL ETE BLOOD COUNT WITH AUTO DIFF* RDW 13.2 % 11.5-1 4.5 Not Available [facility] [address], [place], [address], 06/24/2023 13:42:47 06/23/19 24 06/23/2023 COMPL ETE BLOOD COUNT WITH AUTO DIFF* plt 129 10E3/ uL 150-45 0 low Not Available [facility] [address], [place], [address], 06/24/2023 13:42:47 06/23/19 24 06/23/2023 COMPL ETE BLOOD COUNT WITH AUTO DIFF* neut% 71.7 % 50.0-7 0.0 high Not Available [facility] [address], [place], [address], 06/24/2023 13:42:47 06/23/19 24 06/23/2023 COMPL ETE BLOOD COUNT WITH AUTO DIFF* lymph% 19.1 % 18.0-4 2.0 Not Available [facility] [address], [place], [address], 06/24/2023 13:42:47 06/23/19 24 06/23/2023 COMPL ETE BLOOD COUNT WITH AUTO DIFF* mono% 5.7 % 2.0-11 .0 Not Available [facility] [address], [place], [address], 06/24/2023 13:42:47 06/23/19 24 06/23/2023 COMPL ETE BLOOD COUNT WITH AUTO DIFF* eos% 2.5 % 1.0-3. 0 Not Available [facility] [address], [place], [address], 06/24/2023 13:42:47 06/23/19 24 06/23/2023 COMPL ETE BLOOD COUNT WITH AUTO DIFF* baso% 0.6 % 0.0-2. 0 Not Available [facility] [address], [place], [address], 06/24/2023 13:42:47 06/23/19 24 06/23/2023 COMPL ETE BLOOD COUNT WITH AUTO DIFF* Ig% 0.4 % 0.0-0. 6 Not Available [facility] [address], [place], [address], 06/24/2023 13:42:47 06/23/19 24 06/23/2023 COMPL ETE BLOOD COUNT WITH AUTO DIFF* neut# 5.16 10E3/ uL 2.30-8 .10 Not Available [facility] [address], [place], [address], 06/24/2023 13:42:47 06/23/19 24 06/23/2023 COMPL ETE BLOOD COUNT WITH AUTO DIFF* lymph# 1.37 10E3/ uL 0.80-4 .80 Not Available [facility] [address], [place], [address], 06/24/2023 13:42:47 06/23/19 24 06/23/2023 COMPL ETE BLOOD COUNT WITH AUTO DIFF* mono# 0.41 10E3/ uL 0.45-1 .30 low Not Available [facility] [address], [place], [address], 06/24/2023 13:42:47 06/23/19 24 06/23/2023 COMPL ETE BLOOD COUNT WITH AUTO DIFF* eos# 0.18 10E3/ uL 0.00-0 .40 Not Available [facility] [address], [place], [address], 06/24/2023 13:42:47 06/23/19 24 06/23/2023 COMPL ETE BLOOD COUNT WITH AUTO DIFF* baso# 0.04 10E3/ uL 0.00-0 .10 Not Available [facility] [address], [place], [address], 06/24/2023 13:42:47 06/23/19 24 06/23/2023 COMPL ETE BLOOD COUNT WITH AUTO DIFF* Ig# 0.03 10E3/ uL 0.00-0 .09 Not Available [facility] [address], [place], [address], 06/24/2023 13:42:47 06/23/19 24 06/23/2023 COMPR EHENS [...] Available [facility] [address], [place], [address], 06/24/2023 13:42:48 06/23/19 24 06/23/2023 COMPR EHENS DAVID METAB OLIC PANEL * BUN 26 mg/dL 8-23 high Not Available [facility] [address], [place], [address], 06/24/2023 13:42:48 06/23/19 24 06/23/2023 COMPR EHENS DAVID METAB OLIC PANEL * calcium 8.5 mg/dL 8.8-10 .2 low Not Available [facility] [address], [place], [address], 06/24/2023 13:42:48 06/23/19 24 06/23/2023 COMPR EHENS DAVID METAB OLIC PANEL * creatinine 1.31 mg/dL 0.80-1 .30 high Not Available [facility] [address], [place], [address], 06/24/2023 13:42:48 06/23/19 24 06/23/2023 COMPR EHENS DAVID METAB OLIC PANEL * sodium 142 mmol/ L 136-14 5 Not Available [facility] [address], [place], [address], 06/24/2023 13:42:48 06/23/19 24 06/23/2023 COMPR EHENS DAVID METAB OLIC PANEL * potassium 4.3 mmol/ L 3.5-5. 1 Not Available [facility] [address], [place], [address], 06/24/2023 13:42:48 06/23/19 24 06/23/2023 COMPR EHENS DAVID METAB OLIC PANEL * chloride 107 mEq/L 98-107 Not Available [facility] [address], [place], [address], 06/24/2023 13:42:48 06/23/19 24 06/23/2023 COMPR EHENS DAVID METAB OLIC PANEL * carbon dioxide 25 mmol/ L 23-30 Not Available [facility] [address], [place], [address], 06/24/2023 13:42:48 06/23/19 24 06/23/2023 COMPR EHENS DAVID METAB OLIC PANEL * total protein 5.0 g/dL 6.2-8. 1 low Not Available [facility] [address], [place], [address], 06/24/2023 13:42:48 06/23/19 24 06/23/2023 COMPR EHENS DAVID METAB OLIC PANEL * albumin 3.1 g/dL 3.2-4. 6 low Not Available [facility] [address], [place], [address], 06/24/2023 13:42:48 06/23/19 24 06/23/2023 COMPR EHENS DAVID METAB OLIC PANEL * globulin 1.9 g/dL 2.3-3. 4 low Not Available [facility] [address], [place], [address], 06/24/2023 13:42:48 06/23/19 24 06/23/2023 COMPR EHENS DAVID METAB OLIC PANEL * A/G ratio 1.6 g/dL 0.8-2. 0 Not Available [facility] [address], [place], [address], 06/24/2023 13:42:48 06/23/19 24 06/23/2023 COMPR EHENS DAVID METAB OLIC PANEL * alkaline phosphatase 66 U/L 30-120 Not Available [facility] [address], [place], [address], 06/24/2023 13:42:48 06/23/19 24 06/23/2023 COMPR EHENS DAVID METAB OLIC PANEL * ALT (SGPT) 15 U/L 13-40 Not Available [facility] [address], [place], [address], 06/24/2023 13:42:48 06/23/19 24 06/23/2023 COMPR EHENS DAVID METAB OLIC PANEL * AST (SGOT) 13 U/L 19-48 low Not Available [facility] [address], [place], [address], 06/24/2023 13:42:48 06/23/19 24 06/23/2023 COMPR EHENS DAVID METAB OLIC PANEL * bilirubin, total 0.69 mg/dL 0.20-1 .10 Not Available [facility] [address], [place], [address], 06/24/2023 13:42:48 06/23/19 24 06/23/2023 COMPR EHENS [...] [facility] [address], [place], [address], 06/24/2023 13:42:48 06/23/19 24 06/23/2023 FOLAT E* folate 13.8 NG/mL 8.6-58 .9 Not Available [facility] [address], [place], [address], 06/24/2023 13:42:48 06/23/19 24 06/23/2023 IRON* iron 89 ug/dL 65-175 Intox icate d Child : 280 - 2250 ug/dL Fatal ly Poiso benny Child : >1800 ug/dL Intox icate d Child : 280 - 2250 ug/dL Fatal ly Poiso benny Child : >1800 ug/dL Not Available [facility] [address], [place], [address], 06/24/2023 13:42:49 06/23/19 24 06/23/2023 MAGNE SIUM* magnesium 1.80 mg/dL 1.60-2 .40 Not Available [facility] [address], [place], [address], 06/24/2023 13:42:49 06/23/19 24 06/23/2023 VITAM IN B12* vitamin B12 257 pg/mL 250-11 00 Not Available [facility] [address], [place], [address], 06/24/2023 13:42:50 06/23/19 24 06/23/2023 COMPL ETE BLOOD COUNT WITH AUTO DIFF* WBC 7.19 10E3/ uL 4.50-1 1.50 Not Available [facility] [address], [place], [address], 06/24/2023 15:10:26 06/23/19 24 06/23/2023 COMPL ETE BLOOD COUNT WITH AUTO DIFF* RBC 4.55 10E6/ uL 4.60-6 .00 low Not Available [facility] [address], [place], [address], 06/24/2023 15:10:26 06/23/19 24 06/23/2023 COMPL ETE BLOOD COUNT WITH AUTO DIFF* HGB 13.8 g/dL 14.0-1 8.0 low Not Available [facility] [address], [place], [address], 06/24/2023 15:10:26 06/23/19 24 06/23/2023 COMPL ETE BLOOD COUNT WITH AUTO DIFF* HCT 40.5 % 40.0-5 4.0 Not Available [facility] [address], [place], [address], 06/24/2023 15:10:26 06/23/19 24 06/23/2023 COMPL ETE BLOOD COUNT WITH AUTO DIFF* MCV 89 fL 80-100 Not Available [facility] [address], [place], [address], 06/24/2023 15:10:26 06/23/19 24 06/23/2023 COMPL ETE BLOOD COUNT WITH AUTO DIFF* MCH 30 pg 26-32 Not Available [facility] [address], [place], [address], 06/24/2023 15:10:26 06/23/19 24 06/23/2023 COMPL ETE BLOOD COUNT WITH AUTO DIFF* MCHC 34.1 g/dL 32.0-3 6.0 Not Available [facility] [address], [place], [address], 06/24/2023 15:10:26 06/23/19 24 06/23/2023 COMPL ETE BLOOD COUNT WITH AUTO DIFF* RDW 13.2 % 11.5-1 4.5 Not Available [facility] [address], [place], [address], 06/24/2023 15:10:26 06/23/19 24 06/23/2023 COMPL ETE BLOOD COUNT WITH AUTO DIFF* plt 129 10E3/ uL 150-45 0 low Not Available [facility] [address], [place], [address], 06/24/2023 15:10:26 06/23/19 24 06/23/2023 COMPL ETE BLOOD COUNT WITH AUTO DIFF* neut% 71.7 % 50.0-7 0.0 high Not Available [facility] [address], [place], [address], 06/24/2023 15:10:26 06/23/19 24 06/23/2023 COMPL ETE BLOOD COUNT WITH AUTO DIFF* lymph% 19.1 % 18.0-4 2.0 Not Available [facility] [address], [place], [address], 06/24/2023 15:10:26 06/23/19 24 06/23/2023 COMPL ETE BLOOD COUNT WITH AUTO DIFF* mono% 5.7 % 2.0-11 .0 Not Available [facility] [address], [place], [address], 06/24/2023 15:10:26 06/23/19 24 06/23/2023 COMPL ETE BLOOD COUNT WITH AUTO DIFF* eos% 2.5 % 1.0-3. 0 Not Available [facility] [address], [place], [address], 06/24/2023 15:10:26 06/23/19 24 06/23/2023 COMPL ETE BLOOD COUNT WITH AUTO DIFF* baso% 0.6 % 0.0-2. 0 Not Available [facility] [address], [place], [address], 06/24/2023 15:10:26 06/23/19 24 06/23/2023 COMPL ETE BLOOD COUNT WITH AUTO DIFF* Ig% 0.4 % 0.0-0. 6 Not Available [facility] [address], [place], [address], 06/24/2023 15:10:26 06/23/19 24 06/23/2023 COMPL ETE BLOOD COUNT WITH AUTO DIFF* neut# 5.16 10E3/ uL 2.30-8 .10 Not Available [facility] [address], [place], [address], 06/24/2023 15:10:26 06/23/19 24 06/23/2023 COMPL ETE BLOOD COUNT WITH AUTO DIFF* lymph# 1.37 10E3/ uL 0.80-4 .80 Not Available [facility] [address], [place], [address], 06/24/2023 15:10:26 06/23/19 24 06/23/2023 COMPL ETE BLOOD COUNT WITH AUTO DIFF* mono# 0.41 10E3/ uL 0.45-1 .30 low Not Available [facility] [address], [place], [address], 06/24/2023 15:10:26 06/23/19 24 06/23/2023 COMPL ETE BLOOD COUNT WITH AUTO DIFF* eos# 0.18 10E3/ uL 0.00-0 .40 Not Available [facility] [address], [place], [address], 06/24/2023 15:10:26 06/23/19 24 06/23/2023 COMPL ETE BLOOD COUNT WITH AUTO DIFF* baso# 0.04 10E3/ uL 0.00-0 .10 Not Available [facility] [address], [place], [address], 06/24/2023 15:10:26 06/23/19 24 06/23/2023 COMPL ETE BLOOD COUNT WITH AUTO DIFF* Ig# 0.03 10E3/ uL 0.00-0 .09 Not Available [facility] [address], [place], [address], 06/24/2023 15:10:26 06/23/19 24 06/23/2023 FOLAT E* folate 13.8 NG/mL 8.6-58 .9 Not Available [facility] [address], [place], [address], 06/24/2023 15:10:27 10/06/19 24 10/06/2023 COMPL ETE BLOOD COUNT WITH AUTO DIFF* WBC 6.30 10E3/ uL 4.50-1 1.50 Not Available [facility] [address], [place], [address], 10/07/2023 17:44:26 10/06/19 24 10/06/2023 COMPL ETE BLOOD COUNT WITH AUTO DIFF* RBC 4.44 10E6/ uL 4.60-6 .00 low Not Available [facility] [address], [place], [address], 10/07/2023 17:44:26 10/06/19 24 10/06/2023 COMPL ETE BLOOD COUNT WITH AUTO DIFF* HGB 13.8 g/dL 14.0-1 8.0 low Not Available [facility] [address], [place], [address], 10/07/2023 17:44:26 10/06/19 24 10/06/2023 COMPL ETE BLOOD COUNT WITH AUTO DIFF* HCT 42.8 % 40.0-5 4.0 Not Available [facility] [address], [place], [address], 10/07/2023 17:44:26 10/06/19 24 10/06/2023 COMPL ETE BLOOD COUNT WITH AUTO DIFF* MCV 96 fL 80-100 Not Available [facility] [address], [place], [address], 10/07/2023 17:44:26 10/06/19 24 10/06/2023 COMPL ETE BLOOD COUNT WITH AUTO DIFF* MCH 31 pg 26-32 Not Available [facility] [address], [place], [address], 10/07/2023 17:44:26 10/06/19 24 10/06/2023 COMPL ETE BLOOD COUNT WITH AUTO DIFF* MCHC 32.2 g/dL 32.0-3 6.0 Not Available [facility] [address], [place], [address], 10/07/2023 17:44:26 10/06/19 24 10/06/2023 COMPL ETE BLOOD COUNT WITH AUTO DIFF* RDW 14.6 % 11.5-1 4.5 high Not Available [facility] [address], [place], [address], 10/07/2023 17:44:26 10/06/19 24 10/06/2023 COMPL ETE BLOOD COUNT WITH AUTO DIFF* plt 111 10E3/ uL 150-45 0 low Not Available [facility] [address], [place], [address], 10/07/2023 17:44:26 10/06/19 24 10/06/2023 COMPL ETE BLOOD COUNT WITH AUTO DIFF* neut% 59.4 % 50.0-7 0.0 Not Available [facility] [address], [place], [address], 10/07/2023 17:44:26 10/06/19 24 10/06/2023 COMPL ETE BLOOD COUNT WITH AUTO DIFF* lymph% 27.3 % 18.0-4 2.0 Not Available [facility] [address], [place], [address], 10/07/2023 17:44:26 10/06/19 24 10/06/2023 COMPL ETE BLOOD COUNT WITH AUTO DIFF* mono% 8.1 % 2.0-11 .0 Not Available [facility] [address], [place], [address], 10/07/2023 17:44:26 10/06/19 24 10/06/2023 COMPL ETE BLOOD COUNT WITH AUTO DIFF* eos% 4.4 % 1.0-3. 0 high Not Available [facility] [address], [place], [address], 10/07/2023 17:44:26 10/06/19 24 10/06/2023 COMPL ETE BLOOD COUNT WITH AUTO DIFF* baso% 0.6 % 0.0-2. 0 Not Available [facility] [address], [place], [address], 10/07/2023 17:44:26 10/06/19 24 10/06/2023 COMPL ETE BLOOD COUNT WITH AUTO DIFF* Ig% 0.2 % 0.0-0. 6 Not Available [facility] [address], [place], [address], 10/07/2023 17:44:26 10/06/19 24 10/06/2023 COMPL ETE BLOOD COUNT WITH AUTO DIFF* neut# 3.74 10E3/ uL 2.30-8 .10 Not Available [facility] [address], [place], [address], 10/07/2023 17:44:26 10/06/19 24 10/06/2023 COMPL ETE BLOOD COUNT WITH AUTO DIFF* lymph# 1.72 10E3/ uL 0.80-4 .80 Not Available [facility] [address], [place], [address], 10/07/2023 17:44:26 10/06/19 24 10/06/2023 COMPL ETE BLOOD COUNT WITH AUTO DIFF* mono# 0.51 10E3/ uL 0.45-1 .30 Not Available [facility] [address], [place], [address], 10/07/2023 17:44:26 10/06/19 24 10/06/2023 COMPL ETE BLOOD COUNT WITH AUTO DIFF* eos# 0.28 10E3/ uL 0.00-0 .40 Not Available [facility] [address], [place], [address], 10/07/2023 17:44:26 10/06/19 24 10/06/2023 COMPL ETE BLOOD COUNT WITH AUTO DIFF* baso# 0.04 10E3/ uL 0.00-0 .10 Not Available [facility] [address], [place], [address], 10/07/2023 17:44:26 10/06/19 24 10/06/2023 COMPL ETE BLOOD COUNT WITH AUTO DIFF* Ig# 0.01 10E3/ uL 0.00-0 .09 Not Available [facility] [address], [place], [address], 10/07/2023 17:44:26 10/06/19 24 10/06/2023 COMPL ETE BLOOD COUNT WITH AUTO DIFF* reflex Smear Review Not Available [facility] [address], [place], [address], 10/07/2023 17:44:26 10/06/19 24 10/06/2023 COMPR EHENS [...] Available [facility] [address], [place], [address], 10/07/2023 17:44:26 10/06/19 24 10/06/2023 COMPR EHENS DAVID METAB OLIC PANEL * BUN 19 mg/dL 8-23 Not Available [facility] [address], [place], [address], 10/07/2023 17:44:26 10/06/19 24 10/06/2023 COMPR EHENS DAVID METAB OLIC PANEL * calcium 8.2 mg/dL 8.8-10 .2 low Not Available [facility] [address], [place], [address], 10/07/2023 17:44:26 10/06/19 24 10/06/2023 COMPR EHENS DAVID METAB OLIC PANEL * creatinine 1.05 mg/dL 0.80-1 .30 Not Available [facility] [address], [place], [address], 10/07/2023 17:44:26 10/06/19 24 10/06/2023 COMPR EHENS DAVID METAB OLIC PANEL * sodium 142 mmol/ L 136-14 5 Not Available [facility] [address], [place], [address], 10/07/2023 17:44:26 10/06/19 24 10/06/2023 COMPR EHENS DAVID METAB OLIC PANEL * potassium 4.2 mmol/ L 3.5-5. 1 Not Available [facility] [address], [place], [address], 10/07/2023 17:44:26 10/06/19 24 10/06/2023 COMPR EHENS DAVID METAB OLIC PANEL * chloride 108 mEq/L 98-107 high Not Available [facility] [address], [place], [address], 10/07/2023 17:44:26 10/06/19 24 10/06/2023 COMPR EHENS DAVID METAB OLIC PANEL * carbon dioxide 26 mmol/ L 23-30 Not Available [facility] [address], [place], [address], 10/07/2023 17:44:26 10/06/19 24 10/06/2023 COMPR EHENS DAVID METAB OLIC PANEL * total protein 4.9 g/dL 6.2-8. 1 low Not Available [facility] [address], [place], [address], 10/07/2023 17:44:26 10/06/19 24 10/06/2023 COMPR EHENS DAVID METAB OLIC PANEL * albumin 2.9 g/dL 3.2-4. 6 low Not Available [facility] [address], [place], [address], 10/07/2023 17:44:26 10/06/19 24 10/06/2023 COMPR EHENS DAVID METAB OLIC PANEL * globulin 2.0 g/dL 2.3-3. 4 low Not Available [facility] [address], [place], [address], 10/07/2023 17:44:26 10/06/19 24 10/06/2023 COMPR EHENS DAVID METAB OLIC PANEL * A/G ratio 1.5 g/dL 0.8-2. 0 Not Available [facility] [address], [place], [address], 10/07/2023 17:44:26 10/06/19 24 10/06/2023 COMPR EHENS DAVID METAB OLIC PANEL * alkaline phosphatase 73 U/L 30-120 Not Available [facility] [address], [place], [address], 10/07/2023 17:44:26 10/06/19 24 10/06/2023 COMPR EHENS DAVID METAB OLIC PANEL * ALT (SGPT) 13 U/L 13-40 Not Available [facility] [address], [place], [address], 10/07/2023 17:44:26 10/06/19 24 10/06/2023 COMPR EHENS DAVID METAB OLIC PANEL * AST (SGOT) 12 U/L 19-48 low Not Available [facility] [address], [place], [address], 10/07/2023 17:44:26 10/06/19 24 10/06/2023 COMPR EHENS DAVID METAB OLIC PANEL * bilirubin, total 0.97 mg/dL 0.20-1 .10 Not Available [facility] [address], [place], [address], 10/07/2023 17:44:26 10/06/19 24 10/06/2023 COMPR EHENS [...] Not Available [facility] [address], [place], [address], 10/07/2023 17:44:26 06/15/19 24 06/15/2023 XR, hip + pelvi s, unila teral , 4 or more view No observ ation record ed. [email or web address] [facility] [address] [facility], [place], [address], 07/13/2023 07:14:48 Result Notes None recorded. Problems Name Problem SNOMED Code Status Onset Date Resolution Date Notes Provider Name and Address Organization Details Recorded Time Essential hypertensio n 88053828 Active 2022 YANIV Arias, PMHNP-BC [address] [place], [address], [place] [facility] 18:14:22 Neuropathy 202270526 Active 2022 YANIV Arias, PMHNP-BC [address], [place], [address], [facility] - [facility] 4 18:14:22 Obstructive sleep apnea of adult 8517995217800 Active 2023 Cristy Dawkins [facility]-BC, PMHNP-BC [address], [place], [address], [facility] 4 07:25:43 Osteoarthri tis of multiple joints 538700865 Active 2023 Cristy Dawkins [facility]-BC, PMHNP-BC [address], [place], [address], [facility] 4 07:06:33 Low back pain 317199738 Active 2023 Cristy Dawkins SOLIDS CONTROL TECHNICIAN-BC, PMHNP-BC [address], [place], [address], [facility] 4 07:06:33 Problem Notes None recorded. Medical Equipment None Reported. Allergies Allergen ID Allergen Name Allergen Category Reaction Reaction Severity Criticality Documentation Date Start Date Code Code System Note Provider Name and Address Organization Details Recorded Time 6753 amlodipin e medicatio n Not available Not available Not available 02/22/2023 10660 RxNorm Shamyra Tank [facility] 3 16:46:55 6754 hydrochlo rothiazid e medicatio n Not available Not available Not available 02/22/2023 5487 RxNorm Shamyra Sterling [facility] 3 16:47:12 Medications Name Sig Start Date [...] % 97.4 [degF] 130 mm[Hg] 86 mm[Hg] [facility] 4 12:59:18 Date Recorded Body height Heart rate Respiratory rate Oxygen saturation Oxygen saturation in Arterial blood by Pulse oximetry Body temperature Systolic blood pressure Diastolic blood pressure Provider Name and Address Organization Details Last Updated DateTime 4 180.34 cm 58 /min 18 /min 97 % 97 % 98.1 [degF] 152 mm[Hg] 82 mm[Hg] [facility] 4 14:55:21 Date Recorded Body height Heart rate Respiratory rate Oxygen saturation Oxygen saturation in Arterial blood by Pulse oximetry Body temperature Systolic blood pressure Diastolic blood pressure Provider Name and Address Organization Details Last Updated DateTime 4 180.34 cm 60 /min 16 /min 97 % 97 % 97.7 [degF] 144 mm[Hg] 82 mm[Hg] [facility] 4 09:05:20 Date Recorded Body height Body mass index (BMI) Body weight Provider Name and Address Organization Details Last Updated DateTime 02/21/2023 180.34 cm 26.4 kg/m2 84768.96 g Cristy Dawkins, SOLIDS CONTROL TECHNICIAN-BC, PMHNP-BC [address] [place], [address], [facility] 02/22/2023 16:50:28 Date Recorded Heart rate Respiratory rate Oxygen saturation Oxygen saturation in Arterial blood by Pulse oximetry Body temperature Systolic blood pressure Diastolic blood pressure Provider Name and Address Organization Details Last Updated DateTime 3 53 /min 18 /min 97 % 97 % 97 [degF] 122 mm[Hg] 68 mm[Hg] [facility] 3 15:23:32 Date Recorded Body height Heart rate Respiratory rate Oxygen saturation Oxygen saturation in Arterial blood by Pulse oximetry Body temperature Systolic blood pressure Diastolic blood pressure Provider Name and Address Organization Details Last Updated DateTime 3 180.34 cm 55 /min 18 /min 97 % 97 % 97.2 [degF] 140 mm[Hg] 78 mm[Hg] [facility] 3 12:12:20 Date Recorded Body height Heart rate Respiratory rate Oxygen saturation Oxygen saturation in Arterial blood by Pulse oximetry Body temperature Systolic blood pressure Diastolic blood pressure Provider Name and Address Organization Details Last Updated DateTime 3 180.34 cm 57 /min 16 /min 97 % 97 % 97.6 [degF] 148 mm[Hg] 80 mm[Hg] [facility] 3 11:09:11 Social History Question Answer Notes LastModified by Organizat ion Details LastModified Time Tobacco Smoking Status Former Smoker Jose weathers [facility] 02/22/2023 16:48:48 Do You Have An Advance Directive? Yes [email or web address] Information not available 02/22/2023 Are You Blind Or Do You Have Difficulty Seeing? No [email or web address] Information not available 02/22/2023 Is Blood Transfusion Acceptable In An Emergency? Yes [email or web address] Information not available 02/22/2023 What Is Your Level Of Caffeine Consumption? Occasional [email or web address] Information not available 02/22/2023 What Type Of Riveter Helper Do You Use? None Information not available 02/22/2023 What Is Your Code Status? DNR Information not available 02/03/2023 Are You Deaf Or Do You Have Serious Difficulty Hearing? No [email or web address] Information not available 02/22/2023 What Type Of Diet Are You Following? REGULAR Information not available 02/22/2023 What Is The Highest Grade Or Level Of School You Have Completed Or The Highest Degree You Have Received? [id number] [email or web address] Information not available 02/22/2023 Have There Been Any Changes To Your Family Or Social Situation? No [email or web address] Information not available 02/22/2023 When Did You Quit Smoking? 1-5yearssincel adia [email or web address] Information not available 02/22/2023 Are There Any Guns Present In Your Home? No [email or web address] Information not available 02/22/2023 Do You Have A Medical Power Of Chief Engineer Research? Yes Miguel Galaviz (son-in-la w) Information not available 02/03/2023 What Was The Date Of Your Most Recent Tobacco Screening? 02/21/2023 [email or web address] Information not available 02/22/2023 How Many Children Do You Have? 0 [email or web address] Information not available 02/22/2023 What Is Your Current Pack Years? 10packyears [email or web address] Information not available 02/22/2023 Do You Have Any Pets? No [email or web address] Information not available 02/22/2023 What Is Your Relationship Status? [email or web address] Information not available 02/22/2023 Do You Use Your Seat Belt Or Car Seat Routinely? Yes [email or web address] Information not available 02/22/2023 Are You Sexually Active? No [email or web address] Information not available 02/22/2023 Do You Have Smoke And Carbon Monoxide Detectors In Your Home? Yes [email or web address] Information not available 02/22/2023 At What Age Did You Start Smoking Tobacco? 20 [email or web address] Information not available 02/22/2023 Are You Passively Exposed To Smoke? No [email or web address] Information not available 02/22/2023 Do You Participate In Social Media? No [email or web address] Information not available 02/22/2023 Do You Use Sunscreen Routinely? No [email or web address] Information not available 02/22/2023 How Many Years Have You Smoked Tobacco? 2 Information not available 02/22/2023 Do You Have Difficulty Walking Or Climbing Stairs? Yes [email or web address] Information not available 02/22/2023 Are You Currently In School? No Information not available 02/22/2023 Do You Have Any Dietary Restrictions? No Information not available 02/22/2023 Sex: Male Functional Status Question Answer Note LastModified by Organizat ion Details LastModified Time Do you use any illicit or recreational drugs? No [email or web address] Information not available 02/22/2023 Do you or have you ever used any other forms of tobacco or nicotine? No [email or web address] Information not available 02/22/2023 What is your level of alcohol consumption? None [email or web address] Information not available 02/22/2023 Are you currently employed? No Information not available 02/22/2023 Do you have transportation difficulties? No Information not available 02/22/2023 Are you able to walk? YESASSIST [email or web address] Information not available 02/22/2023 Do you have difficulty doing errands alone? Yes [email or web address] Information not available 02/22/2023 Are you able to care for yourself? Yes Information not available 02/22/2023 Do you have difficulty dressing or bathing? No [email or web address] Information not available 02/22/2023 What is your exercise level? None Information not available 02/22/2023 Mental Status Question Answer Note LastModified by Organizat ion Details LastModified Time Do you feel stressed (tense, restless, nervous, or anxious, or unable to sleep at night)? [id number] [email or web address] Information not available 02/22/2023 Do you have difficulty concentrating, remembering or making decisions? No [email or web address] Information no t available 02/22/2023 Family History Relationship Description Onset Age of this Age Resolved Age Notes LastModified by Organization Details LastModified Time Father Essential hypertension [email or web address] Not available 16:55:25 Medical History Condition Response Hematological Diseases / Disorders Y Genitourinary Diseases / Disorders () Y Obstructive Sleep Apnea Y Gastrointestinal Diseases / Disorders Y Neuropathy Y Neurological Diseases / Disorders Y Hypertension Y Immunizations Vaccine Type Date Status Note Provider Nam e and Address Organization Details Recorded Time Influenza, adjuvanted, quadrivalent, PF 03/10/2023 completed Anamaria Min jasiel [facility] 03/10/2023 16:06:40 Past Encounters Encounter ID Performer Location Encounter Start Date Encounter Closed Date Diagnosis/Indication Diagnosis SNOMED-CT Code Diagnosis ICD10 Code Diagnosis Note [id number] Cristy Dawkins SOLIDS CONTROL TECHNICIAN-BC, PMHNP-BC [facility] [address] [place] [address] 02/21/2023 08:12:18 02/22/2023 19:33:44 Thoracic back pain 878082922 M54.6 Advance care planning 71 0547088 Z71.89 Essential hypertension 81799885 I10 taking medication . labs to eval levels. Neuropathy 086180128 G62 .9 safety when ambulating .numbness. Denies pain. 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 Low back pain 908542388 M54.50 Pain of le ft hip joint 8597225372 50244 M25.552 Essential hypertension 68452567 I10 taking medication . labs to eval levels. Anemia 152011256 D64.9 labs to eval levels. [id number] Cristy Dawkins SOLIDS CONTROL TECHNICIAN-BC, PMHNP-BC [facility] [address] [place] [address] 07/12/2023 13:37:52 07/14/2023 14:17:46 Low back pain 288033310 M54.50 Essential hypertension 25374294 I10 Osteoarthr itis of multiple joints 468196543 M15.9 Dressing-g rooming self-care deficit 015549513 Z74.1 Obstructiv e sleep apnea of adult 3420421604 103 G47.33 [id number] YANIV Arias, PMHNGARRISON [facility] [address] [place] [address] 08/03/2023 08:40:09 08/04/2023 08:52:46 Low back pain 821261244 M54.50 Osteoarthr itis of multiple joints 644658125 M15.9 Neuropathy 721423889 G62 .9 Health Concerns Section Related Observation LastModified by Organization Detai ls LastModified Time None Recorded Concern Status LastModified by Organization Details LastModified Time None Recorded Advance Directives Directive Y: Payers Insurance Date Sequence Insurance Name Policy Number Policy Greco Covered Member ID Greco Member ID Guarantor Name 08/28/2023 1 [employer] - GOLD PLUS (MEDICARE REPLACEMENT/A DVANTAGE - HMO) Crow Smith III [id number] Crow Smith 02/23/2023 1 [place] Crow Smith III [id number] Crow Smith Notes Date Note Type Note Provider Name and Address Organization Details Recorded Time 02/21/2023 text/html Back PainReporte d bypatient.Location:[facility] Severity:moderate (5-7) Associated Symptoms:no fever; no weak [...] numbness and weakness in BLE. YANIV Arias, MICHELLE [address] [place], [address], [facility] - [facility] 02/22/2023 17:35:34 03/21/2023 text/html Back PainReporte d bypatient.Location:[facility] Severity:moderate (5-7) Alleviating Factors:NSAIDS Associated Symptoms:no fever; no weak limbs; no numbness of the legs/feet; no tingling; no incontinence; no shortness of breath; no unintentional weight loss; no chills; no night sweats; no gait instability; no bowel/bladder symptoms; no recent increase in stress Neuropathy - having significant numbness and weakness in BLE. Denies burning.ABN labs noted on routine labs. YANIV Arias, PMIDALIAP-BC [address] [place], [address], [facility] 03/21/2023 12:42:48 06/14/2023 text/html [...] dizziness, CP, SOB, or palpitations. YANIV Arias, PMIDALIAP-BC [address] [place], [address], [facility] 06/14/2023 18:22:36 07/12/2023 text/html [...] dizziness, CP, SOB, or palpitations. YANIV Arias, MICHELLE [address], [place], [address] [place] [address], [facility] 07/13/2023 07:30:33 08/03/2023 text/html Joint & Soft Tis marely PainReported bypatient.Location:[facility] pain Quality:aching;dull Timing:frequent Alleviating Factors:nothing helps Aggravating [...] difficulties ambulating. Increasing fall risk. YANIV Arias, MICHELLE [address] [place] [address], [facility] 08/04/2023 07:07:27
--- OUTSIDE RECORDS SUMMARY | 2024-11-20 04:27 | XMS_ITS | Encounter Summary ---
Author Organization [facility] Address [address] 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
--- OUTSIDE RECORDS SUMMARY | 2024-11-20 04:27 | XMS_ITS | Clinical Summary ---
Author Organization [facility] sal[facility] Address [address] [place] [address] Phone Care Team Providers Care Spray Drier Name Role Phone Eric French MD Primary Care Provider [phone] Allergies Active Allergy Reactions Criticality Noted Date [...] Blood Pressure 162/80 05/05/2022 2:40 PM SENIOR MASTER SCHEDULER Pulse 60 05/05/2022 2:40 PM SENIOR MASTER SCHEDULER Temperature 35.3 C (95.5 F) 05/05/2022 2:40 PM SENIOR MASTER SCHEDULER Respiratory Rate - - Oxygen Saturation - - Inhaled Oxygen Concentration - - Weight 89.4 kg (197 lb) 05/05/2022 2:40 PM SENIOR MASTER SCHEDULER Height 182.9 cm (6') 05/05/2022 2:40 PM SENIOR MASTER SCHEDULER Body Mass Index 26.72 05/05/2022 2:40 PM SENIOR MASTER SCHEDULER Plan of Treatment Health Maintenance Due Date Last Done Comments Pneumococcal PPSV23/PCV13 65 + Years / Low and Medium Risk (1 of 4 - PCV) 1992 Influenza Vaccine (Season Ended) 2025 Insurance [address] [facility] [address] [place] [id number] [facility] MEDICARE ADVANTAGE Care Teams Spray Drier Relationship Specialty Start Date End Date Eric French MD [address] [place] [address] PCP - General Internal Medicine 05/05/22
--- OUTSIDE RECORDS SUMMARY | 2024-11-20 04:27 | XMS_ITS | Clinical Summary ---
Author Organization [facility] Address [address] [place] [address] Care Team Providers Care Circuit Court Magistrate Name Role Phone Darren Butler DO Primary Care Provider [phone] Source Comments [facility],non-owned Affiliates and Associated Physician Practices is amultiple site organization consisting of ambulatory clinics and hospital sitesin [place], [place], [place] and [place]. This disclosure is being madepursuant to the Care Everywhere program and may not contain all information available regarding this patient. Last updated 18.[facility] Allergies Active Allergy Reactions Criticality Noted Date [...] care, and heating? Not very hard 07/05/2024 [facility] [place] [facility] - Occupational Stress [...] were you homeless or living in a m[facility] (including now)? 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 Gender Identity Not on file Sexual Orientation Not on file Last Filed Vital Signs Vital Sign Reading Time Taken Comments Blood Pressure 129/91 07/10/2024 4:09 PM NFL PLAYER Pulse 81 07/10/2024 4:09 PM NFL PLAYER Temperature 36.8 C (98.2 F) 07/10/2024 4:09 PM NFL PLAYER Respiratory Rate 18 07/10/2024 4:09 PM NFL PLAYER Oxygen Saturation 95% 07/10/2024 4:09 PM NFL PLAYER Inhaled Oxygen Concentration - - Weight 72.5 kg (159 lb 13.3 oz) 07/10/2024 4:00 AM NFL PLAYER Height 177.8 cm (5' 10) 07/05/2024 8:22 PM NFL PLAYER Body Mass Index 22.93 07/05/2024 8:22 PM NFL PLAYER Plan of Treatment Health Maintenance Due Date [...] MEDICARE ADV HMO & PPO Care Teams Circuit Court Magistrate Relationship Specialty Start Date End Date Darren Butler DO [address] [place] [phone] PCP - General Internal Medicine 07/05/24
--- OUTSIDE RECORDS SUMMARY | 2024-11-20 04:27 | XMS_ITS | Continuity of Care Document ---
Author Organization [facility] Address [address] [place] [address] [address] [place] [address] Phone Care Team Providers Care Vp Home Health Name Role Phone Carlos DICKINSON, Emy Unavailable [...] Providers Copied on Encounter [facility], [address] [place] [address] [address], [place], [place], [id number], [place] tel:[phone] OPH CONSULT CAROL VALENTIN blurry vision (chief complaint) Cataract, nuclear sclerotic senile, bilateralEctrop ion of both eyes, unspecified ectropion type, unspecified eyelidVitreous degeneration of both eyes Mar-3 0- 1 Carlos Quevdeo. [address], [place], [place], [id number] , [place]. tel:[phone] Referring Provider: Jeremy Carreon MD, [address], [place], [address]. tel:[phone] OFFICE/OUTPA TIENT VISIT, [facility], [address] [place] [address], [id number], [place] tel:[phone] OPH CONSULT CAROL VALENTIN dryness (chief complaint) Vitreous degeneration of both eyesCataract, nuclear sclerotic senile, bilateralEctrop ion of both eyes, unspecified ectropion type, unspecified eyelid October- 8 Gonzalezedmundo Quevedo. [address], [address], [place], [place], [id number] , [place]. tel:[phone] Referring Provider: Emy Kingsley, [address], [place], [address]. tel:[phone] OFFICE/OUTPA TIENT VISIT, [facility], [address] [place] [address], [id number], [place] tel:[phone] OPH CONSULT CAROL VALENTIN blurry vision (chief complaint) Vitreous degeneration of both eyesCataract, nuclear sclerotic senile, bilateral Nov- 5 Carlos Quevedo. [address], [address], [place], [place], [id number] , [place]. [phone] Referring Provider: Emy Kingsley, [address], [place], [address]. tel:[phone] OFFICE/OUTPA TIENT VISIT, [facility], [address] [place] [address], [id number], [place] tel:[phone] OPH CONSULT CAROL VALENTIN Senile nuclear sclerosisVitreo us degeneration 2 Roque Nick. [address], [address], [place], [place], [id number] , [place]. tel:[phone] Family History Family Member Type Diagnosis Age At Onset Mother Problem (finding) glaucoma Payers Payer name Insurance type Covered green party ID Authoriza tion(s) [employer] HMO [id number] Social History Type Description Quantity Date Captured [...] Reason For Visit From encounter dated '09/02/2020 12:20'. blurry vision (chief complaint). Description: The 80 [...]
--- OUTSIDE RECORDS SUMMARY | 2024-11-20 04:27 | XMS_ITS | Encounter Summary ---
Author Organization [employer] Address [address] [facility] [address] Navarro: Epic Prelude ADT MARIANA SIDHU [address] Care Team Providers Care Washer Off Name Role Phone Jeremy Carreon MD Primary Care Provider Encounter Details Date Type Department Care Team (Late st Contact Info) Description 08/18/1992 Outpatient Historical Deb, MD [facility] [address] [facility] [address] [place] [address] Social History Tobacco Use Types Packs/Day Years Used Date Smoking Tobacco: Never Assessed Sex and Gender Information Value Date Recorded Sex Assigned at Not on file Legal Sex Male 3:20 AM JOB HONER Gender Identity Not on file Sexual Orientation Not on file documented as of this encounter Plan of Treatment Not on file documented as of this encounter Visit Diagnoses Not on filedocumented in this encounter Care Teams Washer Off Relationship Specialty Start Date End Date Jeremy Carreon MD [address] [place] [phone] PCP - General Internal Medicine 05/17/19 02/14/23 documented as of this encounter
--- OUTSIDE RECORDS SUMMARY | 2024-11-20 04:27 | XMS_ITS | Encounter Summary ---
Author Organization [facility] Address [address] [place] [address] Care Team Providers Care Machine Brush Maker Name Role Phone Jeremy Carreon MD Primary Care Provider [phone] Encounter Details Date Type Department Care Team (Latest Contact Info) Description 07/08/2006 Outpatient Historical HIS [facility] SINAI Boyd, MD Aristeo [address] [facility] [address] [place] [address] Routine General Medical Examination at a Health Care Facility (Primary Dx) Social History Tobacco Use Types Packs/Day Years Used Date Smoking Tobacco: Never Assessed Sex and Gender Information Value Date Recorded Sex Assigned at Not on file Legal Sex Male 3:20 AM LAY MIDWIFE Gender Identity Not on file Sexual Orientation Not on file documented as of this encounter Plan of Treatment Not on file documented as of this encounter Procedures Procedure Name Priority Date/Time Associated Diagnosis Comments URINALYSIS WITH MICROSCOPIC Routine 07/08/2006 10:56 AM LAY MIDWIFE TSH WITH REFLEX FT4 AND FT3 Routine 07/08/2006 10:53 AM LAY MIDWIFE CBC WITH DIFFERENTIAL Routine 07/08/2006 10:53 AM LAY MIDWIFE CBC WITH DIFFERENTIAL Routine 07/08/2006 10:53 AM LAY MIDWIFE PSA Routine 07/08/2006 10:53 AM LAY MIDWIFE LIPID PANEL Routine 07/08/2006 10:53 AM LAY MIDWIFE COMPREHENSIVE METABOLIC PANEL Routine 07/08/2006 10:53 AM LAY MIDWIFE documented in this encounter Results * URINALYSIS WITH MICROSCOPIC (07/08/2006 10:56 AM LAY MIDWIFE) COLOR UA Yellow INTERFACE SYSTEM CLARITY UA [...] /HPF INTERFACE SYSTEM 07/08/2006 10:5 6 AM LAY MIDWIFE Aristeo Boyd MD URINE ORDERABLES Edited Performing Organization Address [facility] Phone Number INTERFACE SYSTEM Refer to clinic/hospital department * CBC WITH DIFFERENTIAL (07/08/2006 10:53 AM LAY MIDWIFE) NEUTROPHILS 63 45 - 70 % INTERFAC [...] K/uL INTERFACE SYSTEM 07/08/2006 10:5 3 AM LAY MIDWIFE Aristeo Boyd MD HEMATOLOGY ORDERABLES Edited Performing Organization Address [facility] Phone Number INTERFACE SYSTEM Refer to clinic/hospital department * (ABNORMAL) CBC WITH DIFFERENTIAL (07/08/2006 10:53 AM LAY MIDWIFE) WBC 10.0(H) 4.0 - 9.8 K/uL INTERFACE [...] fL INTERFACE SYSTEM 07/08/2006 10:5 3 AM LAY MIDWIFE Aristeo Boyd MD HEMATOLOGY ORDERABLES Edited Performing Organization Address City/[facility] Co de Phone Number INTERFACE SYSTEM Refer to clinic/hospital department * TSH WITH REFLEX FT4 AND FT3 (07/08/2006 10:53 AM LAY MIDWIFE) TSH 2.14 0.27 - 4.20 uU/mL INTERFACE SYSTEM 07/08/2006 10:5 3 AM LAY MIDWIFE Aristeo Boyd MD CHEMISTRY ORDERABLES Edited Performing Organization Address City/[facility]/ZIP Co de Phone Number INTERFACE SYSTEM Refer to clinic/hospital department * PSA (07/08/2006 10:53 AM LAY MIDWIFE) PSA 1.9 0.0 - 4.0 ng/mL INTERFACE SYSTEM Comment:Performed on Donita M odular E170 System 07/08/2006 10:5 3 AM LAY MIDWIFE Aristeo Boyd MD CHEMISTRY ORDERABLES Edited INTERFACE SYSTEM Refer to clinic/hospital department * (ABNORMAL) LIPID PANEL (07/08/2006 10:53 AM LAY MIDWIFE) CHOLESTEROL 204(H) 100 - 199 mg/dL INTERFACE [...] [facility] Intranet at: [email or web address] Select: Lab Policies and Procedures Select: Reference Ranges - Lipids 07/08/2006 10:5 3 AM LAY MIDWIFE Aristeo Boyd MD CHEMISTRY ORDERABLES Edited INTERFACE SYSTEM Refer to clinic/hospital department * COMPREHENSIVE METABOLIC PANEL (07/08/2006 10:53 AM LAY MIDWIFE) GLUCOSE 90 65 - 99 mg/dL INTERFACE [...] [facility] Intranet at: [email or web address] Select: Lab Policies and Procedures Select: Reference Ranges - GFR 07/08/2006 10:5 3 AM LAY MIDWIFE us Aristeo Boyd MD CHEMISTRY ORDERABLES Edited INTERFACE SYSTEM Refer to clinic/hospital department documented in this encounter Visit Diagnoses Diagnosis Routine general medical examination at a health care facility- Primary documented in this encounter Care Teams Machine Brush Maker Relationship Specialty Start Date End Date Jeremy Carreon MD [address] [place] [phone] PCP - General Internal Medicine 05/17/19 02/14/23 documented as of this encounter
--- OUTSIDE RECORDS SUMMARY | 2024-11-20 04:27 | XMS_ITS | Encounter Summary ---
Author Organization [facility] Address [address] [place] [address] Care Team Providers Care Fuel Truck Driver Name Role Phone Jeremy Carreon MD Primary Care Provider [phone] Encounter Details Date Type Department Care Team (Latest Contact Info) Description 07/19/2000 Outpatient Historical HIS [facility] SINAI Boyd, MD [facility]iste[facility] [address] [facility] [address] [place] [address] Unspecified essential hypertension (Primary Dx) Social History Tobacco Use Types Packs/Day Years Used Date Smoking Tobacco: Never Assessed Sex and Gender Information Value Date Recorded Sex Assigned at Not on file 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
--- OUTSIDE RECORDS SUMMARY | 2024-11-20 04:27 | XMS_ITS | Encounter Summary ---
Author Organization [facility] Address [address] [place] [address] Care Team Providers Care Systems Software Manager Name Role Phone Jeremy Carreon MD Primary Care Provider Encounter Details Date Type Department Care Team (Latest Contact Info) Description 03/17/2005 Outpatient Historical HIS [facility] SINAI Boyd, MD Aristeo [address] 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 Phone Number INTERFACE SYSTEM Refer to [...] ORDERABLES Final Resu lt Performing Organization Address [facility] Co de Phone Number INTERFACE SYSTEM Refer [...] ORDERABLES Final Resu lt Performing Organization Address [facility] Phone Number INTERFACE SYSTEM Refer to clinic/hospital department * TSH (03/17/2005 9:40 AM CDT) TSH 1.96 0.27 - 4.20 uU/mL INTERFACE SYSTEM 03/17/2005 9:40 AM CDT Aristeo Boyd MD CHEMISTRY ORDERABLES Final Resul t Performing Organization Address [facility] Phone Number INTERFACE SYSTEM Refer to clinic/hospital department * PSA (03/17/2005 9:40 AM CDT) PSA 1.5 0.0 - 4.0 ng/mL INTERFACE SYSTEM Comment:Performed on Donita M odular E170 System 03/17/2005 9:40 AM CDT Aristeo Boyd MD CHEMISTRY ORDERABLES Final Resul t Performing Organization Address [facility] Phone Number INTERFACE SYSTEM Refer to [...] Primary documented in this encounter Care Teams Systems Software Manager Relationship Specialty Start Date End Date Jeremy Carreon MD [address] [place] [phone] PCP - General Internal Medicine 05/17/19 02/14/23 documented as of this encounter
--- OUTSIDE RECORDS SUMMARY | 2024-11-20 04:27 | XMS_ITS | Continuity of Care Document ---
Author Organization [facility] Address [address] [place] [address] Phone Care Team Providers Care Rvda Master Certified Rv Technician Name Role Phone Mery Galindo Unavailable Unavailable [...] Diagnoses Date Provider Providers Copied on Encounter [facility], [address], [place], [place], [id number], tel:[phone] [facility] No Information 0-201 0 Josie Ordonez. [address] , [address], [place], [place], [facility], [place]. tel:[phone] [facility], [address], [place], [place], [id number], [place] tel:[phone] [facility] No Information 9-201 0 Leo Carrillo. [address], [place], [place], [facility], [place]. tel:[phone] Referring Provider: Gerardo sanchez, [address], [place], [facility]. tel:[phone] Office/outpat ient Visit, [facility], [address] [place] [address] [address], [place], [place], [id number], tel:[phone] [facility] No Information Luciano-0 6-201 0 Krishnasamy Gerardo. [address] [facility] [address], [place], [facility], [place]. tel:[phone] Office/outpat ient Visit, [facility], [address] [place] [address] [address], [place], [place], [id number], tel:[phone] [facility] No Information Francesco-0 2-200 9 Krishnasamy Gerardo. [address] [place], [place] [address] [address], [facility], [place]. tel:[phone] Referring Provider: Gerardo sanchez, [facility] [address], [facility]. tel:[phone] [facility], [address] [place], [place] [address], [place], [place], [id number], tel:[phone] [facility] No Information Nov-1 6-200 9 Krishnasamy Gerardo. [facility] [address], [facility], [place]. tel:[phone] Referring Provider: Gerardo sanchez, [address] [facility] [address], [place], [facility]. tel:[phone] [facility], [address] [place] [address] [address], [place], [place], [id number], tel:[phone] [facility] No Information Apr-0 8-200 9 Krishnasamy Gerardo. [facility] [address] [facility] [address], [place], [address], [place]. tel:[phone] Referring Provider: Gerardo sanchez, [address] [facility] [address], [place], [address]. tel:[phone] [facility], [address], [place], [place], [id number], [place] tel:[phone] [facility] No Information [address] Goodrich OD Tonny. [address], [place], [address], [place]. tel:[phone] Family History Family Member Type Diagnosis Age At Onset No Information Payers Payer name Insurance type Covered republican ID Zahida rainey(s) [employer] Claims [id number] Social History Type Description Quantity Date Captured [...]
--- OUTSIDE RECORDS SUMMARY | 2024-11-20 04:28 | XMS_ITS | Continuity of Care Document ---
Author Organization [facility] Address [address] [place] [address] Phone Care Team Providers Care Environmental Compliance Technician Name Role Phone Holly Nicolas MD Unavailable [...] to the affected area(s) 0.00 - Active Elidel 1 % topical cream apply by topical route 2 times every day a thin layer to the affected area(s) ; rub in gently and completely to trunk and groin - Active Multiple Vitamins tablet take 1 tablet by oral route every day with food - Active Vitamin B-12 1,000 mcg tablet take 1 tablet by oral route every day 1 tablet - Active Co Q-10 100 mg-5 unit capsule take 1 tab am - Active losartan 50 mg tablet TAKE ONE-HALF TABLET BY MOUTH EVERY MORNING AND TAKE ONE-HALF TABLET BY MOUTH EVERY EVENING - No Longer Active Advance Directives Directive Yes / No Effective Date File Name No Information Encounters Encounter Description Practice Location Reason(s) For Visit Diagnoses Date Provider Providers Copied on Encounter [facility], [address], [place], [place], [id number] , tel: [phone] [facility] No Information Feb- 7 Maria Isabel Barrera. [address] [place] [address], [place], [place], [id number], [place]. [phone] [facility], [address], [place], [place], [address] , tel: [phone] [facility] No Information 0 Maria Isabel Barrera. [address] [place] [address], [place], [place], [address], . [phone] [facility], [address], [place], [place], [address] , [place] tel:[phone] [facility] Mixed hyperlipidemia Jul- 7 Vonjv Emy. [address] [place] [address], [place], [place], [address], [place]. tel:[phone] Referring Provider: Holly Baires, [address] [place] [address], [place], [address] . tel:[phone] [facility], [address], [place], [place], [id number] , [place] tel:[phone] [facility] Essential hypertensionMixed hyperlipidemiaThrom bocytopeniaPolycyth emia veraObstructive sleep apnea syndromeBenign prostatic hyperplasia with lower urinary tract symptoms, unspecified morphologyMale erectile dysfunction, unspecifiedDermatit is 7 Kj Sarabia. [address] [place] [address], [id number], [place]. tel:[phone] Referring Provider: Holly Baires, [address] [place] [address], [place], [address] . tel:[phone] [facility], [address], [place], [place], [address] , tel: [phone] [facility] No Information Mar-2 1-201 6 Brooklynn Bain. [address] [place] [address], [place], [place], [id number]. tel:[phone] [facility], [address], [place], [place], [address] , [place] tel: [phone] [facility] No Information 5 6 Maria Isabel Barrera. [address] [place] [address], [place], [place], [address], [place]. [phone] Referring Provider: Holly Baires, [address] [place] [address], [place], [address] . tel:[phone] [facility], [address], [place], [place], [address] , [place] tel: [phone] [facility] FolliculitisEssenti al hypertensionMixed hyperlipidemiaObstr uctive sleep apnea syndromePolycythemi a veraThrombocytopeni aBenign prostatic hyperplasia with lower urinary tract symptoms, unspecified morphologyMale erectile dysfunction, unspecifiedPersonal history of colonic polyps Sep-0 8 6 Kj Sarabia. [address] [place] [address], [id number], [place]. [phone] Referring Provider: Holly Baires, [address] [place] [address], [place], [address] . tel:[phone] [facility], [address], [place], [place], [address] , tel:[phone] [facility] No Information Ahsan- 0-201 6 Neetu Erazo. [address] [place] [address], [id number], [place]. tel:[phone] [facility], [address], [place], [place], [address] , tel: [phone] [facility] Encounter for general adult medical examination without abnormal findingsEssential (primary) hypertensionMixed hyperlipidemiaPolyc ythemia veraObstructive sleep apnea (adult) (pediatric)Benign prostatic hyperplasia with lower urinary tract symptoms, unspecified morphologyMale erectile dysfunction, unspecifiedMononeur opathy, unspecifiedPersonal history of colonic polyps Sep- 6 Maria Isabel Barrera. [address] [place] [address], [place], [place], [address], . [phone] Referring Provider: Holly Baires, [address] [place] [address], [place], [address] . tel:[phone] [facility], [address], [place], [place], [address] , tel: [phone] [facility] Benign prostatic hyperplasia with lower urinary tract symptoms, unspecified morphology Sep- 6 Brooklynn Bain. [address] [place] [address], [place], [place], [address]. tel:[phone] [facility], [address], [place], [place], [address] , tel: [phone] [facility] Candidal dermatitis 5 Maria Isabel Barrera. [address] [place] [address], [place] [address], [place], [place], [address], . tel:[phone] [facility], [address], [place], [place], [address] , [place] tel:[phone] [facility] Essential (primary) hypertensionMixed hyperlipidemiaObstr uctive sleep apnea (adult) (pediatric)Polycyth emia veraPersonal history of colonic polypsMononeuropath y, unspecifiedMale erectile dysfunction, unspecifiedEncounte r for immunizationCandida l dermatitis 5 Kj Sarabia. [address] [place] [address], [id number], . tel:[phone] Referring Provider: Holly Baires, [address] [place] [address] [address], [place], [address] . tel:[phone] [facility], [address], [place], [place], [address] , [place] tel: [phone] [facility] Essential (primary) hypertensionPersona l history of colonic polypsMale erectile dysfunction, unspecifiedMixed hyperlipidemiaMonon europathy, unspecifiedObstruct kirsten sleep apnea (adult) (pediatric)Polycyth emia vera 5 [place] Johny Sarabia. [address] [place] [address], [address], [place], [place], [address], [place]. tel:[phone] [facility], [address], [place], [place], [address] , [place] tel: [phone] [facility] Mixed hyperlipidemiaPolyc ythemiaHigh blood pressureObstructive sleep apneaAllergic dermatitis 5 Maria Isabel Barrera. [address] [place] [address], [facility] [address], [place], [place], [address], [place]. tel:[phone] Referring Provider: Holly Baires, [address] [place] [address], [place], [address] . tel:[phone] [facility], [address], [place], [place], [address] , [place] tel: [phone] [facility] No Information 5 Maria Isabel Barrera. [address] [place] [address], [place], [place], [address], [place]. tel:[phone] [facility], [address], [place], [place], [address] , [place] tel:[phone] [facility] No Information 4 Maria Isabel Barrera. [address] [place] [address], [place], [place], [address], [place]. tel:[phone] [facility], [address], [place], [place], [address] , [place] tel:[phone] [facility] No Information 4 Maria Isabel Barrera. [address] [place] [address], [address], [place], [place], [address], [place]. [phone] [facility], [address], [place], [place], [address] , [place] tel:[phone] [facility] History of colonic polypsHigh blood pressureObstructive sleep apneaNeuropathyErec tile dysfunction 4 Maria Isabel Barrera. [address] [place] [address], [address], [place], [address], [place]. [phone] Referring Provider: Holly Baires, [address] [place] [address] [address], [place], [address] . tel:[phone] Family History Family Member Type Diagnosis Age At Onset Father Problem (finding) renal cell carcinoma 65 Mother Problem (finding) osteoporosis Father Problem (finding) hypertension Mother Problem (finding) hypertension Mother Problem (finding) Cancer, basal cell Mother Problem (finding) chronic obstructive anna g disease Mother Problem (finding) Hearing impairment Immunizations Vaccine Date Status Comments influenza, injectable, [...] er Payers Payer name Insurance type Covered democrat ID Authoriza tion(s) [employer] [id number] [employer] [id number] [employer] [id number] [employer] [id number] Social History Type Description Quantity Date Captured [...]
--- NOTE | 2024-11-20 04:46 | ED.FALL ---
HPI - Fall General Chief Complaint: Fall Stated Complaint: FALL ONTO LEFT SIDE WHILE TRANSFERRING TO [facility]. Time Seen by Provider: 11/20/24 04:04 History of Present Illness HPI Narrative: Patient presents here after falling onto his left side while he was trying to go to the bathroom, he does have a history of frequent falls, he reports some slight pain to his left elbow but otherwise denies any injuries elsewhere, he states that when he fell his elbow took most of the fall but he then hit his head on the wall. Also has some neck pain. Related Data Home Medications ?Medication ?Instructions ?Recorded ?Confirmed ?Last Taken ?Type cholecalciferol (vitamin D3) 50 50 mcg PO DAILY 05/23/20 09/28/24 09/27/24 20:00 History mcg (2,000 unit) capsule zinc 50 mg tablet 50 mg PO DAILY 05/23/20 09/28/24 09/27/24 20:00 History ascorbic acid (vitamin C) 500 mg 500 mg PO DAILY 08/14/24 09/28/24 09/27/24 20:00 History tablet (Vitamin C) donepezil 5 mg tablet 5 mg PO HS 08/14/24 09/28/24 09/27/24 18:00 History fluoxetine 10 mg capsule 10 mg PO QAM 08/14/24 09/28/24 09/28/24 08:00 History irbesartan 300 mg tablet 300 mg PO DAILY 08/14/24 09/28/24 09/28/24 08:00 History naproxen sodium 220 mg tablet 220 mg PO DAILY 08/14/24 09/28/24 09/28/24 08:00 History polyethylene glycol 3350 17 17 g PO .Q daily PRN constipation 08/14/24 09/28/24 Unknown History gram/dose oral powder primidone 50 mg tablet 12.5 mg PO HS 08/14/24 09/28/24 09/27/24 18:00 History furosemide 20 mg tablet 20 mg PO DAILY 09/28/24 09/28/24 09/28/24 08:00 History potassium chloride 20 mEq 20 meq PO DAILY 09/28/24 09/28/24 09/28/24 08:00 History tablet,extended release(part/cryst) Allergies Allergy/AdvReac Type Severity Reaction Status Date / Time amlodipine Allergy Intermediate HIVES, Verified 08/14/24 10:49 ITCHING hydrochlorothiazide Allergy Unknown RASH & Verified 08/14/24 10:49 ITCHING valsartan Allergy Unknown Hives Verified 08/14/24 10:49 Review of Systems Review of Systems: All systems reviewed & are unremarkable except as noted in HPI and below PMFSH Past Medical History Medical History Hypovitaminosis D Basal cell carcinoma of skin Chronic back pain Obstructive sleep apnea CPAP of 8 recommended on polysomnogram 2020 Neuropathy Dyslipidemia Left ventricular diastolic dysfunction, NYHA class 1 Grade 1 diastolic dysfunction with EF of 66 by% noted on echocardiogram from 2019 Essential hypertension Surgical History Surgical History History of colonoscopy with polypectomy Multiple events with the most recent May 2017 History of hip surgery (08/14/24) Percutaneous pinning right hip fracture by Dr. 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 He has lived in [facility] since 2020. He reports that he briefly smoked when he was young but according to a prior H&P from 2010 he was smoking half a pack of cigarettes per day at that time. He used to occasionally drink alcohol in moderation but had not done so in many years. He denies history of illicit substance use. Code status: DNR/DNI with IDPA form on chart Healthcare POA: Miguel Boggs (vanessa) who lives in [place]. Smoking packs per day: 0.5 Smoking cigarettes per day: 10.0 Years smoked: 2 Smoking pack-years: 1.00 Smoking status: Former smoker Tobacco type: cigarettes Second hand tobacco smoke exposure: No Smoking end date: 06/06/1960 Alcohol intake: current Drinks per week: 1 Alcohol use details: a glass a wine Substance use: never Substance use type: does not use Do You Feel Safe in your Home?: No Lack of Transportation: No Lack of Food: Never True Current Housing: I Have Housing Concerned About Future Housing: No Difficulty Paying Gas/Electric Bills: No Difficulty Paying for Meds: No Currently Unemployed: No Education: Master's Degree or Higher Difficulty w/ Childcare or Family Care: No Living arrangements: assisted living Additional living arrangements comments: . Lives at [facility]. Occupation/Education: retired Additional occupation/education comments: [employer] Spiritual care concerns: No Agree to blood products: Yes Exam Narrative: EXAMINATION OF ORGAN SYSTEMS/BODY AREAS: Constitutional: Vital signs per nursing GENERAL:[No acute distress, non-toxic appearing.] HEAD: Normal with no signs of head trauma. EYES: EOMI, conjunctiva normal ENT: Hearing grossly intact LUNGS: Nonlabored breathing. HEART: [Regular rate and rhythm] ABD: [Soft], [nontender to palpation] EXT: Normal range of motion SKIN: A 3 mm skin tear left elbow NEURO: [Alert. No gross focal sensory or strength deficits.] PSYCH: Normal affect Course Vital Signs Vital signs: Vital Signs Temperature 98 F 11/20/24 03:56 Pulse Rate 79 11/20/24 03:56 Respiratory Rate 16 11/20/24 03:56 Blood Pressure 129/67 11/20/24 03:56 Pulse Oximetry 95 11/20/24 03:56 Oxygen Delivery Room Air 11/20/24 03:56 Temperature 98 F 11/20/24 03:56 Pulse Rate 81 11/20/24 04:46 Respiratory Rate 14 11/20/24 04:46 Blood Pressure 114/60 11/20/24 04:46 Pulse Oximetry 98 11/20/24 04:46 Oxygen Delivery Room Air 11/20/24 03:56 Procedures Laceration Laceration 1: Date: 11/20/24 Time: 04:49 Site: upper extremity Side (If applicable): left Size (cm): 3 Description: flap Depth: simple, single layer Pre-repair: wound explored, irrigated and deep structures intact ====== Skin Level ====== Skin layer closed with: steri strips ====== Subcutaneous Layer ====== ====== Muscle Layer ====== ====== Tendon Layer ====== MDM - Fall MDM Narrative Medical decision making narrative: Patient presents here after falling, given his age and complaints I will scan his head and neck, no deformity to his left elbow has normal range of motions are very low concern for acute osseous injury, his wound is cleaned at bedside and Steri-Strips applied. CT head and C-spine thankfully without acute abnormality per Radiology. Stable for discharge at this time with return precautions and follow-up to PCP. Lab Data Labs: Lab Results 11/20/24 Range/Units 04:03 POC Capillary Glucose 87 (65-105) mg/dl Discharge Plan Discharge Clinical Impression: Skin tear, Fall Patient Disposition: NH Halfway/Asst Living Condition: Stable Instructions: Fall Prevention for Older Adults (ED), Skin Tear (ED) Additional Instructions: Please follow up with your doctor; you can always return for any further issues. Patient Language: Romanian Prescriptions: No Action zinc 50 mg tablet 50 mg PO DAILY cholecalciferol (vitamin D3) 50 mcg (2,000 unit) capsule 50 mcg PO DAILY furosemide 20 mg tablet 20 mg PO DAILY potassium chloride 20 mEq tablet,ER particles/crystals 20 meq PO DAILY sulfamethoxazole-trimethoprim 800-160 mg Tablet 1 tablet PO Q12HR 3 Days Qty: 14 0RF Rx Instructions: Please complete the course on 10/07/2024 ciprofloxacin HCl 0.3 % Drops 1 drp RIGHT EYE Q4HR 10 Days Qty: 15 0RF gabapentin 100 mg capsule 100 mg PO BID Qty: 60 0RF fluoxetine 10 mg capsule 10 mg PO QAM irbesartan 300 mg tablet 300 mg PO DAILY naproxen sodium 220 mg tablet 220 mg PO DAILY ascorbic acid (vitamin C) [Vitamin C] 500 mg tablet 500 mg PO DAILY primidone 50 mg tablet 12.5 mg PO HS donepezil 5 mg tablet 5 mg PO HS polyethylene glycol 3350 17 gram/dose powder 17 g PO .Q daily PRN (Reason: constipation) finasteride [Proscar] 5 mg tablet 5 mg PO QAM Qty: 90 1RF tamsulosin 0.4 mg capsule See Rx Instructions .ROUTE .COMPLEX Qty: 90 1RF Dose Instruction: TAKE ONE CAPSULE BY MOUTH ONCE DAILY Patient Comments: Pt. states he takes at night Rx Instructions: TAKE ONE CAPSULE BY MOUTH ONCE DAILY Follow-up/Referrals: PHYSICIAN,BEHAVIORAL HEALTH PROFESSIONAL [Primary Care Provider] -
[2024-11-20 05:49] LABS: Glucose Point of Care 93 mg/dl (65-105)
--- NOTE | 2024-11-20 06:23 | PC.NURSE ---
This RN spoke with pts facility and updated about pt POC and arrival back.
== END 2024-11-20 08:04 ==
PROVIDERS: Emergency Provider Emergency Medicine
DX: S51.012A Laceration without foreign body of left elbow, initial encounter (principal); I11.9 Hypertensive heart disease without heart failure; E55.9 Vitamin D deficiency, unspecified; E78.5 Hyperlipidemia, unspecified; G47.33 Obstructive sleep apnea (adult) (pediatric); G62.9 Polyneuropathy, unspecified; Z85.828 Personal history of other malignant neoplasm of skin; Z86.0100 Personal history of colon polyps, unspecified; Z87.891 Personal history of nicotine dependence; R29.6 Repeated falls; Z79.899 Other long term (current) drug therapy; M47.812 Spondylosis without myelopathy or radiculopathy, cervical region; W18.39XA Other fall on same level, initial encounter
CPT/HCPCS: 70450; 72125; 82948; 99284

== ENCOUNTER 2024-11-21 10:21 | Inpatient (IN) | payer MEDICARE, SELFPAY ==
[2024-11-21] VITALS (7 sets, daily range): BP systolic 102–137; BP diastolic 57–93; PULSE 65–86; RESP 12–20; TEMP 36.6–37.1; O2SAT 94–100; BMI 23.0
--- NOTE | ~2024-11-21 | CT_ITS ---
CT brain wo con Ordering provider: Jarret Monroy MD History: 84 years Male with . headache . Comparison: November 20, 2024 Technique: CT of the head without contrast. Radiation reduction technique utilized.The dose-length product was 756.67 mGy-cm. FINDINGS: BRAIN PARENCHYMA AND CSF SPACES: Mild leukoaraiosis and diffuse cortical atrophy. Mild atheromatous d isease. 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 The maximum thickness is on the right 9 mm and on the left 8 mm. Th e hematomas are slightly larger than the previous study by about 1-2 mm bilaterally. Follow-up advise d. No midline shift or mass effect. The brain parenchyma and CSF spaces are otherwise normal. VISUALIZED PARANASAL SINUSES: Well aerated. MASTOIDS: Well aerated. BONES: The bones appear intact. SOFT TISSUES: Visualized nasopharynx is normal. Superficial soft tissues are normal. IMPRESSION: Bilateral chronic subdural hematomas measuring 8 mm on the left and 9 mm on the right. Follow-up advi sed. Dr. Monroy was notified with the result of the patient at 11:58 AM on December 22, 2024 Reviewed, dictated and finalized at location A. IMPRESSION: Bilateral chronic subdural hematomas measuring 8 mm on the left and 9 mm on the right. Follow-up advised. Dr. Monroy was notified with the result of the patient at 11:58 AM on December 22, 2024
--- NOTE | ~2024-11-21 | XR_ITS ---
XR chest 1V Ordering provider: Jarret oMnroy MD History: 84 years Male with . near syncope . Comparison: September 28, 2024 FINDINGS: MEDIASTINUM: The cardiac silhouette is not enlarged. LUNGS: No effusions or pneumothorax. Atelectasis in the left lung base versus pneumonia is noted. OTHER: No free air under the diaphragm. Degenerative changes of the spine. IMPRESSION: Left basilar atelectasis versus pneumonia. Reviewed, dictated and finalized at location A.
--- NOTE | 2024-11-21 10:32 | ECG_ITS ---
Test Date: 2024-11-21 10:45:04 Measurements Intervals [place] Rate: 66 P: -7 WV: 193 QRS: -33 QRSD: 90 T: 31 QT: 369 QTc: 388 Interpretive Statements SINUS RHYTHM LEFT AXIS DEVIATION LOW QRS VOLTAGE IN PRECORDIAL LEADS POSSIBLE ANTERIOR MYOCARDIAL INFARCTION , PROBABLY OLD CONSIDER INFERIOR INFARCT, AGE INDETERMINATE BASELINE ARTIFACT- I, II, III, AVR, AVL, AVF, V1-V6 ABNORMAL ECG Compared to ECG 09/28/2024 16:23:23 HEART RATE HAS INCREASED Electronically Signed On 11-21-2024 10:51:37 CDT by Lopez Barcenas D.O.
--- NOTE | 2024-11-21 10:32 | ED_ITS ---
HPI - General Adult General Chief complaint: Syncope Stated complaint: weak, dizzy, syncopal Time Seen by Provider: 11/21/24 10:23 History of Present Illness HPI narrative: Patient is an 84-year-old male who presents ER after having a possible syncopal episode at his facility while using the restroom. Apparently had some shaking. Patient has dementia and history of recurrent falls. Seen yesterday had a CT scan that showed no acute injury. Patient is awake alert and his neurologic baseline here. Related Data Home Medications ?Medication ?Instructions ?Recorded ?Confirmed ?Last Taken ?Type cholecalciferol (vitamin D3) 50 50 mcg PO DAILY 05/23/20 09/28/24 09/27/24 20:00 History mcg (2,000 unit) capsule zinc 50 mg tablet 50 mg PO DAILY 05/23/20 09/28/24 09/27/24 20:00 History ascorbic acid (vitamin C) 500 mg 500 mg PO DAILY 08/14/24 09/28/24 09/27/24 20:00 History tablet (Vitamin C) donepezil 5 mg tablet 5 mg PO HS 08/14/24 09/28/24 09/27/24 18:00 History fluoxetine 10 mg capsule 10 mg PO QAM 08/14/24 09/28/24 09/28/24 08:00 History irbesartan 300 mg tablet 300 mg PO DAILY 08/14/24 09/28/24 09/28/24 08:00 History naproxen sodium 220 mg tablet 220 mg PO DAILY 08/14/24 09/28/24 09/28/24 08:00 History polyethylene glycol 3350 17 17 g PO .Q daily PRN constipation 08/14/24 09/28/24 Unknown History gram/dose oral powder primidone 50 mg tablet 12.5 mg PO HS 08/14/24 09/28/24 09/27/24 18:00 History furosemide 20 mg tablet 20 mg PO DAILY 09/28/24 09/28/24 09/28/24 08:00 History potassium chloride 20 mEq 20 meq PO DAILY 09/28/24 09/28/24 09/28/24 08:00 History tablet,extended release(part/cryst) Allergies Allergy/AdvReac Type Severity Reaction Status Date / Time amlodipine Allergy Intermediate HIVES, Verified 08/14/24 10:49 ITCHING hydrochlorothiazide Allergy Unknown RASH & Verified 08/14/24 10:49 ITCHING valsartan Allergy Unknown Hives Verified 08/14/24 10:49 Review of Systems 2 Review of Systems: ROS unobtainable: Yes unobtainable due to mental status Constitutional: Constitutional: Reports no additional constitutional complaints Cardiovascular: Cardiovascular: Reports no additional cardiovascular complaints Respiratory: Respiratory: Reports no additional respiratory complaints Gastrointestinal: Gastrointestinal: Reports no additional gastrointestinal complaints Genitourinary: Genitourinary: Reports no additional male genitourinary complaints [facility] Past Medical History Medical History Hypovitaminosis D Basal cell carcinoma of skin Chronic back pain Obstructive sleep apnea CPAP of 8 recommended on polysomnogram 2019 Neuropathy Dyslipidemia Left ventricular diastolic dysfunction, NYHA class 1 Grade 1 diastolic dysfunction with EF of 66 by% noted on echocardiogram from 2019 Essential hypertension Surgical History Surgical History History of colonoscopy with polypectomy Multiple events with the most recent May 2017 History of hip surgery (08/14/24) Percutaneous pinning right hip fracture by Dr. 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 He has lived in [facility] since 2020. He reports that he briefly smoked when he was young but according to a prior H&P from 2010 he was smoking half a pack of cigarettes per day at that time. He used to occasionally drink alcohol in moderation but had not done so in many years. He denies history of illicit substance use. Code status: DNR/DNI with IDPA form on chart Healthcare POA: Miguel Boggs ([facility]) who lives in [place]. Smoking packs per day: 0.5 Smoking cigarettes per day: 10.0 Years smoked: 2 Smoking pack-years: 1.00 Smoking status: Former smoker Tobacco type: cigarettes Second hand tobacco smoke exposure: No Smoking end date: 06/06/1960 Alcohol intake: current Drinks per week: 1 Alcohol use details: a glass a wine Substance use: never Substance use type: does not use Do You Feel Safe in your Home?: No Lack of Transportation: No Lack of Food: Never True Current Housing: I Have Housing Concerned About Future Housing: No Difficulty Paying Gas/Electric Bills: No Difficulty Paying for Meds: No Currently Unemployed: No Education: Master's Degree or Higher Difficulty w/ Childcare or Family Care: No Living arrangements: assisted living Additional living arrangements comments: . Lives at [facility]. Occupation/Education: retired Additional occupation/education comments: [employer] Spiritual care concerns: No Agree to blood products: Yes Exam 2 Narrative: GENERAL: Chronically ill-appearing, well-nourished, and in no acute distress. HEAD: Normocephalic, atraumatic. EYES: PERRL and EOMI. ENT: Mucous membranes moist. CHEST: Clear to auscultation. No respiratory distress. HEART: Regular rate and rhythm. Normal peripheral pulses. ABDOMEN: Soft, nontender, nondistended. EXTREMITIES: Normal range of motion. No edema. SKIN: Warm, dry, no rash. NEURO: Alert and oriented x2. PSYCH: Normal mood and affect. Course Course Emergency Course: 1508: Patient resting comfortably and without complaint and the to like to go back to his senior living. 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 I discussed the case with the patient's step son who is his POA. If patient does not have significant improvement in his creatinine after 2 L of IV fluid we will admit for rehydration, there is no desire by the patient nor the POA to pursue any aggressive interventions or evaluations for the chronic subdural hemorrhage identified. Will obtain a urinalysis as well as a history of recurrent UTI. 1719: No significant improvement in creatinine. Urine with infection. Previous urine culture shows resistance to ceftriaxone and fluoroquinolones. Will place on Zosyn. Admit to hospitalist service. Vital Signs Vital signs: Vital Signs Temperature 97.9 F 11/21/24 10:21 Pulse Rate 65 11/21/24 10:21 Respiratory Rate 18 11/21/24 10:21 Blood Pressure 102/69 11/21/24 10:21 Pulse Oximetry 94 11/21/24 10:21 Oxygen Delivery Room Air 11/21/24 10:21 Temperature 98.2 F 11/21/24 17:25 Pulse Rate 72 11/21/24 17:25 Respiratory Rate 16 11/21/24 17:25 Blood Pressure 119/80 11/21/24 17:25 Pulse Oximetry 98 11/21/24 17:25 Oxygen Delivery Room Air 11/21/24 10:21 Medical Decision Making Vital Signs Vital Signs: Vital Signs Temperature 97.9 F 11/21/24 10:21 Pulse Rate 65 11/21/24 10:21 Respiratory Rate 18 11/21/24 10:21 Blood Pressure 102/69 11/21/24 10:21 Pulse Oximetry 94 11/21/24 10:21 Oxygen Delivery Room Air 11/21/24 10:21 Temperature 98.2 F 11/21/24 17:25 Pulse Rate 72 11/21/24 17:25 Respiratory Rate 16 11/21/24 17:25 Blood Pressure 119/80 11/21/24 17:25 Pulse Oximetry 98 11/21/24 17:25 Oxygen Delivery Room Air 11/21/24 10:21 Lab Data 11/21/24 10:59 11/21/24 15:02 Labs: Lab Results 11/21/24 11/21/24 11/21/24 Range/Units 10:59 15:02 16:26 WBC 6.0 (4.5-10.0) K/mm3 RBC 3.96 L (4.6-6.20) M/mm3 Hgb 11.4 L (14.0-18.0) g/dL Hct 35.5 L (42.0-52.0) % MCV 89.6 (80-100) fl MCH 28.8 (26-34) pg MCHC 32.1 (32-36) g/dl RDW 15.3 H (11.5-14.5) % Plt Count 118 L (150-375) k/mm3 MPV 9.9 (7.4-10.4) fl Immature Gran % (Auto) 0.5 (0-0.5) % Neut % (Auto) 69.0 (45.5-73.1) % Lymph % (Auto) 18.1 L (18.3-44.2) % [place] % (Auto) 8.6 H (2.6-8.5) % Eos % (Auto) 3.0 (0-4.4) % Baso % (Auto) 0.8 (0.2-1.2) % Lymph # (Auto) 1.08 (0.9-3.2) K/mm3 [place] # (Auto) 0.5 (0.1-0.6) K/mm3 Eos # (Auto) 0.2 (0-0.3) K/mm3 Baso # (Auto) 0.1 (0.0-0.1) K/mm3 Abs Immat Gran (auto) 0.03 (0.00-0.031) K/mm3 Absolute Neuts (auto) 4.1 (1.3-6.7) K/mm3 Absolute Nucleated RBC 0.000 (0.0-0.012) K/mm3 Nucleated RBC % 0.0 (0.0-0.2) % PT 15.1 H (11.1-14.7) Seconds INR 1.2 APTT 27.4 (22.3-36.8) Seconds Sodium 135 L 136 L (137-145) mmol/L Potassium 4.6 5.2 H (3.4-5.0) mmol/L Chloride 106 106 (98-107) mmol/L Carbon Dioxide 23 24 (22-30) mmol/L Anion Gap 6 6 (4-12) mmol/L BUN 29 H 29 H (9-20) mg/dL Creatinine 1.69 H 1.65 H (0.7-1.3) mg/dL Estim Creat Clear Calc 32 33 ml/min Estimated GFR 39 L 40 L (59 - ) Glucose 105 98 (65-110) mg/dL Calcium 8.2 L 8.2 L (8.4-10.2) mg/dL Total Bilirubin 0.5 (0.2-1.3) mg/dL AST 16 L (17-59) U/L ALT 9 (6-50) U/L Alkaline Phosphatase 82 (38-126) U/L Total Protein 5.6 L (6.3-8.2) g/dL Albumin 3.3 L (3.5-5.1) g/dL Urine Color Yellow (Yellow) Urine Appearance Cloudy H (Clear) Urine pH 6.0 (5.0-9.0) Ur Specific [place] 1.013 (1.001-1.035) Urine Protein 1+ H (Negative) mg/dL Urine Glucose (UA) Negative (Negative) mg/dL Urine Ketones Negative (Negative) mg/dL Ur Blood (Man) 2+ H (Negative) Urine Nitrate Positive H (Negative) Urine Bilirubin Negative (Negative) Urine Urobilinogen 0.2 (<2.0) mg/dL Leukocyte Esterase Rfl 3+ H (Negative) BILLIE/UL Urine RBC 6-10 H (0-2) /hpf Urine WBC >100 H (0-3) /hpf Ur Squamous Epith Cells None seen (Few) /hpf Urine Bacteria 2+ H /hpf Urine Casts 0-2 Discharge Plan Discharge Clinical Impression: Acute UTI, ROBERT (acute kidney injury) Patient Disposition: Still a Patient Condition: Stable Patient Language: Montenegrin Prescriptions: No Action zinc 50 mg tablet 50 mg PO DAILY cholecalciferol (vitamin D3) 50 mcg (2,000 unit) capsule 50 mcg PO DAILY furosemide 20 mg tablet 20 mg PO DAILY potassium chloride 20 mEq tablet,ER particles/crystals 20 meq PO DAILY sulfamethoxazole-trimethoprim 800-160 mg Tablet 1 tablet PO Q12HR 3 Days Qty: 14 0RF Rx Instructions: Please complete the course on 10/07/2024 ciprofloxacin HCl 0.3 % Drops 1 drp RIGHT EYE Q4HR 10 Days Qty: 15 0RF gabapentin 100 mg capsule 100 mg PO BID Qty: 60 0RF fluoxetine 10 mg capsule 10 mg PO QAM irbesartan 300 mg tablet 300 mg PO DAILY naproxen sodium 220 mg tablet 220 mg PO DAILY ascorbic acid (vitamin C) [Vitamin C] 500 mg tablet 500 mg PO DAILY primidone 50 mg tablet 12.5 mg PO HS donepezil 5 mg tablet 5 mg PO HS polyethylene glycol 3350 17 gram/dose powder 17 g PO .Q daily PRN (Reason: constipation) finasteride [Proscar] 5 mg tablet 5 mg PO QAM Qty: 90 1RF tamsulosin 0.4 mg capsule See Rx Instructions .ROUTE .COMPLEX Qty: 90 1RF Dose Instruction: TAKE ONE CAPSULE BY MOUTH ONCE DAILY Patient Comments: Pt. states he takes at night Rx Instructions: TAKE ONE CAPSULE BY MOUTH ONCE DAILY Follow-up/Referrals: PHYSICIAN,FOOD AND BEVERAGE ASSISTANT MANAGER [Primary Care Provider] -
[2024-11-21] MEDS: SODIUM CHLORIDE 0.9% IV 1,000 ML 999 ML IV CONT ×2 (10:52→14:55)
--- NOTE | 2024-11-21 10:57 | PC.NURSE ---
assumed care of pt from HUONG Koch. pt resting on stretcher, no distress. pt informed of plan of care: draw labwork, give IVF, and await results. no questions at this time
[2024-11-21 11:09] LABS: Basophils Absolute Auto 0.1 K/mm3 (0.0-0.1); Basophils Percent Auto 0.8 % (0.2-1.2); Eosinophils Absolute Auto 0.2 K/mm3 (0-0.3); Hematocrit 35.5 % (42.0-52.0); Hemoglobin 11.4 g/dL (14.0-18.0); Immature Granulocyte Absolute 0.03 K/mm3 (0.00-0.031); Immature Granulocyte Percent A 0.5 % (0-0.5); Lymphocytes Absolute Auto 1.08 K/mm3 (0.9-3.2); Lymphocytes Percent Auto 18.1 % (18.3-44.2); Mean Corpuscular HGB Conc 32.1 g/dl (32-36); Mean Corpuscular Hemoglobin 28.8 pg (26-34); Mean Corpuscular Volume 89.6 fl (80-100); Mean Platelet Volume 9.9 fl (7.4-10.4); Monocytes Absolute Auto 0.5 K/mm3 (0.1-0.6); Monocytes Percent Auto 8.6 % (2.6-8.5); Neutrophils Absolute Auto 4.1 K/mm3 (1.3-6.7); Platelet Count Result 118 k/mm3 (150-375); Red Blood Count 3.96 M/mm3 (4.6-6.20); Red Cell Distribution Width 15.3 % (11.5-14.5)
[2024-11-21 11:22] LABS: Alanine Aminotransferase 9 U/L (6-50); Albumin Level 3.3 g/dL (3.5-5.1); Alkaline Phosphatase 82 U/L (38-126); Anion Gap 6 mmol/L (4-12); Aspartate Amino Transferase 16 U/L (17-59); Bilirubin,Total 0.5 mg/dL (0.2-1.3); Blood Urea Nitrogen 29 mg/dL (9-20); Calcium 8.2 mg/dL (8.4-10.2); Carbon Dioxide 23 mmol/L (22-30); Chloride 106 mmol/L (98-107); Estimated CRCL calculation 32 ml/min; Estimated Glomerular Filt Rate 39; Glucose 105 mg/dL (65-110); Potassium 4.6 mmol/L (3.4-5.0); Sodium 135 mmol/L (137-145); Total Protein 5.6 g/dL (6.3-8.2)
[2024-11-21 11:30] LABS: INR 1.2; Prothrombin Time 15.1 Seconds (11.1-14.7)
[2024-11-21 11:31] LABS: Partial Thromboplastin Time 27.4 Seconds (22.3-36.8)
--- OUTSIDE RECORDS SUMMARY | 2024-11-21 12:48 | XMS_ITS | Encounter Summary ---
Author Organization [facility] Address [address] [place] [address] Care Team Providers Care Temporary Data Entry Clerk Name Role Phone Jeremy Carreon MD Primary Care Provider [phone] Encounter Details Date Type Department Care Team (Latest Contact Info) Description 03/17/2005 Outpatient Historical HIS [facility] SINAI Boyd, MD [place] 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 Gender Identity Not on file Sexual [...] URINE ORDERABLES Final Result Performing Organization Address [facility] Phone Number INTERFACE SYSTEM Refer [...] ORDERABLES Final Resu lt Performing Organization Address [facility] Co de Phone Number INTERFACE SYSTEM Refer [...] ORDERABLES Final Resu lt Performing Organization Address [facility] Phone Number INTERFACE SYSTEM Refer to clinic/hospital department * TSH (03/17/2005 9:40 AM CDT) TSH 1.96 0.27 - 4.20 uU/mL INTERFACE SYSTEM 03/17/2005 9:40 AM CDT [place] Boyd MD CHEMISTRY ORDERABLES Final Resul t Performing Organization Address [facility] Phone Number INTERFACE SYSTEM Refer to clinic/hospital department * PSA (03/17/2005 9:40 AM CDT) PSA 1.5 0.0 - 4.0 ng/mL INTERFACE SYSTEM Comment:Performed on [employer] M [employer] E170 System 03/17/2005 9:40 AM CDT [place] Boyd MD CHEMISTRY ORDERABLES Final Resul t Performing Organization Address [facility] Phone Number INTERFACE SYSTEM Refer [...] Primary documented in this encounter Care Teams Temporary Data Entry Clerk Relationship Specialty Start Date End Date Jeremy Carreon MD [address] [place] [phone] PCP - General Internal Medicine 05/17/19 02/14/23 documented as of this encounter
--- OUTSIDE RECORDS SUMMARY | 2024-11-21 12:48 | XMS_ITS | Encounter Summary ---
Author Organization [facility] Address [address] [place] [address] Care Team Providers Care Cryptologic Support Specialist Name Role Phone Jeremy Carreon MD Primary Care Provider [phone] Encounter Details Date Type Department Care Team (Latest Contact Info) Description 03/27/2003 Outpatient Historical HIS [facility] SINAI Boyd, MD [place] [address] [place] [phone] HYPERTENSION NOS (Primary Dx) Social History Tobacco Use Types Packs/Day Years Used Date Smoking Tobacco: Never Assessed Sex and Gender Information Value Date Recorded Sex Assigned at Not on file Legal Sex 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
--- OUTSIDE RECORDS SUMMARY | 2024-11-21 12:48 | XMS_ITS | Encounter Summary ---
Author Organization [facility] Address [address] [place] [address] Care Team Providers Care Cognos Lead Name Role Phone Jeremy Carreon MD Primary Care Provider [phone] Encounter Details Date Type Department Care Team (Latest Contact Info) Description 07/19/2000 Outpatient Historical HIS [facility] SINAI Boyd, MD [place] [address] [address] [place] [id number] Unspecified essential hypertension (Primary Dx) Social History Tobacco Use Types Packs/Day Years Used Date Smoking Tobacco: Never Assessed Sex and Gender Information Value Date Recorded Sex Assigned at Not on file 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
--- OUTSIDE RECORDS SUMMARY | 2024-11-21 12:48 | XMS_ITS | Data Portability ---
Author Organization [place] [facility] [employer] Address [address] [place] [address] Care Team Providers Care Teacher Vocational Training Name Role Phone MARK ANTHONY TORREZ Claim Analyst OMID CANALES Rn Anesthesiology GLORIA SAUNDERS Claims Associate CHERY VACA Medical Oncologist [phone] MO CARMEN OTHER Assessment Encounter Date Assessment [...] time spent in any separately reportable services. [email or web address] Not available 02/22/2023 17:13:20 03/21/2023 03/21/2023 Medication [...] plan. F/U 12 weeks, sooner if needed [email or web address] Not available 03/21/2023 12:42:27 06/14/2023 06/14/2023 Medication [...] appropriate fluid levels. Faxed lab results to health information tech. HTN controlled with medication but slightly elevated [...] LBP and strengthening those muscles to help. Msasimo and I are concerned about his notable [...] time spent in any separately reportable services. [email or web address] Not available 08/04/2023 07:06:09 Plan of Treatment Reminders Order Date Submit Date Provider Last Modified By Organization Details Last Modified Time Details Appointments None recorded. Lab unlisted lab - complete blood count with auto diff* [address], [place], [address], 4 13:42:47 CMP, serum or plasma [address], [place], [address], 4 13:42:48 magnesium, serum or plasma [address], [place], [address], 4 13:42:49 iron, serum [address], [place], [address], 4 13:42:49 vitamin B12, serum [address], [place], [address], 4 13:42:50 unlisted lab - folate [address], [place], [address], 4 13:42:48 CMP, serum or plasma [address], [place], [address], 3 12:29:59 unlisted lab - complete blood count with auto diff* 2022 023 [email or web address], [address], [place], [address], 3 12:30:00 magnesium, serum or plasma 2022 023 [email or web address], [address], [place], [address], 3 12:29:59 Referral occupation al therapist referral 2023 024 [email or web address] [place], [address], [place], [address], 4 13:43:41 physical therapist referral 2023 024 [email or web address] [place], [address], [place], [address], 4 13:43:24 physical therapist referral 2023 024 [email or web address] [place], [address], [place], [address], 4 13:43:54 dermatolog ist referral - Back of scalp 2022 023 [email or web address] [facility] [place], [address], [place], [address], 3 12:05:49 Procedures None recorded. Surgeries None recorded. Imaging XR, hip + pelvis, unilateral , 4 or more view 2023 024 [facility] ([facility]), [address], [place], [address], 4 14:50:42 XR, sacrum + coccyx, 2 or more view 2023 024 [email or web address] [facility] ([facility]), [address], [place], [address], 4 15:47:01 XR, lumbar spine, 2 view 2023 024 [email or web address] [facility] ([facility]), [address], [place], [address], 4 15:47:13 XR, thoracic spine, 3 view 2022 023 [email or web address] [facility] ([facility]), [address], [place], [address], 3 19:33:44 Medication Orders None recorded. Patient TargetsNo targets recorded. Patient Instructions Encounter Date Encounter Id Patient Instructions Last Modified By Organization Details Last Modified Time 02/21/2023 [id number] care plan* Not available 02/04 16:44:58 Reason for Referral Claims Associate Referral for N eoplasm of uncertain behavior [...] [facility] [address], [place], [address], 03/02/2023 12:21:36 03/01/20 23 03/01/2023 COMPL ETE BLOOD COUNT WITH AUTO DIFF* RBC 4.97 10E6/ uL 4.60-6 .00 Not Available [facility] [address], [place], [address], 03/02/2023 12:21:36 03/01/20 23 03/01/2023 COMPL ETE BLOOD COUNT WITH AUTO DIFF* HGB 15.4 g/dL 14.0-1 8.0 Not Available [facility] [address], [place], [address], 03/02/2023 12:21:36 03/01/20 23 03/01/2023 COMPL ETE BLOOD COUNT WITH AUTO DIFF* HCT 45.7 % 40.0-5 4.0 Not Available [facility] [address], [place], [address], 03/02/2023 12:21:36 03/01/20 23 03/01/2023 COMPL ETE BLOOD COUNT WITH AUTO DIFF* MCV 92 fL 80-100 Not Available [facility] [address], [place], [address], 03/02/2023 12:21:36 03/01/20 23 03/01/2023 COMPL ETE BLOOD COUNT WITH AUTO DIFF* MCH 31 pg 26-32 Not Available [facility] [address], [place], [address], 03/02/2023 12:21:36 03/01/20 23 03/01/2023 COMPL ETE BLOOD COUNT WITH AUTO DIFF* MCHC 34 g/dL 32-36 Not Available [facility] [address], [place], [address], 03/02/2023 12:21:36 03/01/20 23 03/01/2023 COMPL ETE BLOOD COUNT WITH AUTO DIFF* RDW 13.6 % 11.5-1 4.5 Not Available [facility] [address], [place], [address], 03/02/2023 12:21:36 09/26/20 23 03/01/2023 COMPL ETE BLOOD COUNT WITH AUTO DIFF* plt 136 10E3/ uL 150-45 0 low Not Available [facility] [address], [place], [address], 03/02/2023 12:21:36 03/01/20 23 03/01/2023 COMPL ETE BLOOD COUNT WITH AUTO DIFF* neut% 68.3 % 50.0-7 0.0 Not Available [facility] [address], [place], [address], 03/02/2023 12:21:36 03/01/20 23 03/01/2023 COMPL ETE BLOOD COUNT WITH AUTO DIFF* lymph% 22.1 % 18.0-4 2.0 Not Available [facility] [address], [place], [address], 03/02/2023 12:21:36 03/01/20 23 03/01/2023 COMPL ETE BLOOD COUNT WITH AUTO DIFF* mono% 5.9 % 2.0-11 .0 Not Available [facility] [address], [place], [address], 03/02/2023 12:21:36 03/01/20 23 03/01/2023 COMPL ETE BLOOD COUNT WITH AUTO DIFF* eos% 2.6 % 1.0-3. 0 Not Available [facility] [address], [place], [address], 03/02/2023 12:21:36 03/01/20 23 03/01/2023 COMPL ETE BLOOD COUNT WITH AUTO DIFF* baso% 0.8 % 0.0-2. 0 Not Available [facility] [address], [place], [address], 03/02/2023 12:21:36 03/01/20 23 03/01/2023 COMPL ETE BLOOD COUNT WITH AUTO DIFF* Ig% 0.3 % 0.0-0. 6 Not Available [facility] [address], [place], [address], 03/02/2023 12:21:36 03/01/20 23 03/01/2023 COMPL ETE BLOOD COUNT WITH AUTO DIFF* neut# 4.53 10E3/ uL 2.30-8 .10 Not Available [facility] [address], [place], [address], 03/02/2023 12:21:36 03/01/20 23 03/01/2023 COMPL ETE BLOOD COUNT WITH AUTO DIFF* lymph# 1.46 10E3/ uL 0.80-4 .80 Not Available [facility] [address], [place], [address], 03/02/2023 12:21:36 03/01/20 23 03/01/2023 COMPL ETE BLOOD COUNT WITH AUTO DIFF* mono# 0.39 10E3/ uL 0.45-1 .30 low Not Available [facility] [address], [place], [address], 03/02/2023 12:21:36 03/01/20 23 03/01/2023 COMPL ETE BLOOD COUNT WITH AUTO DIFF* eos# 0.17 10E3/ uL 0.00-0 .40 [facility] Available [facility], [place], [address], 03/02/2023 12:21:36 03/01/20 23 03/01/2023 COMPL ETE BLOOD COUNT WITH AUTO DIFF* baso# 0.05 10E3/ uL 0.00-0 .10 Not Available [facility] [address], [place], [address], 03/02/2023 12:21:36 03/01/20 23 03/01/2023 COMPL ETE BLOOD COUNT WITH AUTO DIFF* Ig# 0.02 10E3/ uL 0.00-0 .09 Not Available [facility] [address], [place], [address], 03/02/2023 12:21:36 03/01/20 23 03/01/2023 COMPR EHENS [...] Available [facility] [address], [place], [address], 03/02/2023 12:21:37 03/01/20 23 03/01/2023 COMPR EHENS DAVDI METAB OLIC PANEL * BUN 16 mg/dL 8-23 Not Available [facility] [address], [place], [address], 03/02/2023 12:21:37 03/01/20 23 03/01/2023 COMPR EHENS DAVID METAB OLIC PANEL * calcium 8.7 mg/dL 8.8-10 .2 low Not Available [facility] [address], [place], [address], 03/02/2023 12:21:37 03/01/20 23 03/01/2023 COMPR EHENS DAVID METAB OLIC PANEL * creatinine 1.14 mg/dL 0.80-1 .30 Not Available [facility] [address], [place], [address], 03/02/2023 12:21:37 03/01/20 23 03/01/2023 COMPR EHENS DAVID METAB OLIC PANEL * sodium 143 mmol/ L 136-14 5 Not Available [facility] [address], [place], [address], 03/02/2023 12:21:37 03/01/20 23 03/01/2023 COMPR EHENS DAVID METAB OLIC PANEL * potassium 4.5 mmol/ L 3.5-5. 1 Not Available [facility] [address], [place], [address], 03/02/2023 12:21:37 03/01/20 23 03/01/2023 COMPR EHENS DAVID METAB OLIC PANEL * chloride 106 mEq/L 98-107 Not Available [facility] [address], [place], [address], 03/02/2023 12:21:37 03/01/20 23 03/01/2023 COMPR EHENS DAVID METAB OLIC PANEL * carbon dioxide 28 mmol/ L 23-30 Not Available [facility] [address], [place], [address], 03/02/2023 12:21:37 03/01/20 23 03/01/2023 COMPR EHENS DAVID METAB OLIC PANEL * total protein 5.9 g/dL 6.2-8. 1 low Not Available [facility] [address], [place], [address], 03/02/2023 12:21:37 03/01/20 23 03/01/2023 COMPR EHENS DAVID METAB OLIC PANEL * albumin 3.7 g/dL 3.2-4. 6 Not Available [facility] [address], [place], [address], 03/02/2023 12:21:37 03/01/20 23 03/01/2023 COMPR EHENS DAVID METAB OLIC PANEL * globulin 2.2 g/dL 2.3-3. 4 low Not Available [facility] [address], [place], [address], 03/02/2023 12:21:37 03/01/20 23 03/01/2023 COMPR EHENS DAVID METAB OLIC PANEL * A/G ratio 1.7 g/dL 0.8-2. 0 Not Available [facility] [address], [place], [address], 03/02/2023 12:21:37 03/01/20 23 03/01/2023 COMPR EHENS DAVID METAB OLIC PANEL * alkaline phosphatase 80 U/L 30-120 Not Available [facility] [address], [place], [address], 03/02/2023 12:21:37 03/01/20 23 03/01/2023 COMPR EHENS DAVID METAB OLIC PANEL * ALT (SGPT) 17 U/L 13-40 Not Available [facility] [address], [place], [address], 03/02/2023 12:21:37 03/01/20 23 03/01/2023 COMPR EHENS DAVID METAB OLIC PANEL * AST (SGOT) 15 U/L 19-48 low Not Available [facility] [address], [place], [address], 03/02/2023 12:21:37 03/01/20 23 03/01/2023 COMPR EHENS DAVID METAB OLIC PANEL * bilirubin, total 0.79 mg/dL 0.20-1 .10 Not Available [facility] [address], [place], [address], 03/02/2023 12:21:37 03/01/20 23 03/01/2023 COMPR EHENS DVAID METAB OLIC PANEL * eGFR >60.00 mL/mi [...] Available [facility] [address], [place], [address], 03/02/2023 12:21:37 03/01/2003/01/2023 MAGNE SIUM* magnesium 2.00 mg/dL 1.60-2 .40 Not Available [facility] [address], [place], [address], 03/02/2023 12:21:37 06/23/19 24 06/23/2023 COMPL ETE BLOOD COUNT WITH AUTO DIFF* WBC 7.19 10E3/ uL 4.50-1 1.50 Not Available [facility] [address], [place], [address], 06/24/2023 13:42:47 06/23/19 24 06/23/2023 COMPL ETE BLOOD COUNT WITH AUTO DIFF* RBC 4.55 10E6/ uL 4.60-6 .00 low Not Available [facility] [address], [place], [address], 06/24/2023 13:42:47 06/23/19 24 06/23/2023 COMPL ETE BLOOD COUNT WITH AUTO DIFF* HGB 13.8 g/dL 14.0-1 8.0 low Not Available [facility] [address], [place], [address], 06/24/2023 13:42:47 06/23/19 24 06/23/2023 COMPL ETE BLOOD COUNT WITH AUTO DIFF* HCT 40.5 % 40.0-5 4.0 Not Available [facility] [address], [place], [address], 06/24/2023 13:42:47 06/23/19 24 06/23/2023 COMPL ETE BLOOD COUNT WITH AUTO DIFF* MCV 89 fL 80-100 Not Available [facility] [address], [place], [address], 06/24/2023 13:42:47 06/23/19 24 06/23/2023 COMPL ETE BLOOD COUNT WITH AUTO DIFF* MCH 30 pg 26-32 Not Available [facility] [address], [place], [address], 06/24/2023 13:42:47 06/23/19 24 06/23/2023 COMPL ETE BLOOD COUNT WITH AUTO DIFF* MCHC 34.1 g/dL 32.0-3 6.0 Not Available [facility] [address], [place], [address], 06/24/2023 13:42:47 06/23/19 24 06/23/2023 COMPL ETE BLOOD COUNT WITH AUTO DIFF* RDW 13.2 % 11.5-1 4.5 Not Available [facility] [address], [place], [address], 06/24/2023 13:42:47 06/23/19 24 06/23/2023 COMPL ETE BLOOD COUNT WITH AUTO DIFF* plt 129 10E3/ uL 150-45 0 low Not Available [facility] [address], [place], [address], 06/24/2023 13:42:47 06/23/19 24 06/23/2023 COMPL ETE BLOOD COUNT WITH AUTO DIFF* neut% 71.7 % 50.0-7 0.0 high Not Available [facility] [address], [place], [address], 06/24/2023 13:42:47 06/23/19 24 06/23/2023 COMPL ETE BLOOD COUNT WITH AUTO DIFF* lymph% 19.1 % 18.0-4 2.0 Not Available [facility] [address], [place], [address], 06/24/2023 13:42:47 06/23/19 24 06/23/2023 COMPL ETE BLOOD COUNT WITH AUTO DIFF* mono% 5.7 % 2.0-11 .0 Not Available [facility] [address], [place], [address], 06/24/2023 13:42:47 06/23/19 24 06/23/2023 COMPL ETE BLOOD COUNT WITH AUTO DIFF* eos% 2.5 % 1.0-3. 0 Not Available [facility] [address], [place], [address], 06/24/2023 13:42:47 06/23/19 24 06/23/2023 COMPL ETE BLOOD COUNT WITH AUTO DIFF* baso% 0.6 % 0.0-2. 0 Not Available [facility] [address], [place], [address], 06/24/2023 13:42:47 06/23/19 24 06/23/2023 COMPL ETE BLOOD COUNT WITH AUTO DIFF* Ig% 0.4 % 0.0-0. 6 Not Available [facility] [address], [place], [address], 06/24/2023 13:42:47 06/23/19 24 06/23/2023 COMPL ETE BLOOD COUNT WITH AUTO DIFF* neut# 5.16 10E3/ uL 2.30-8 .10 Not Available [facility] [address], [place], [address], 06/24/2023 13:42:47 06/23/19 24 06/23/2023 COMPL ETE BLOOD COUNT WITH AUTO DIFF* lymph# 1.37 10E3/ uL 0.80-4 .80 Not Available [facility] [address], [place], [address], 06/24/2023 13:42:47 06/23/19 24 06/23/2023 COMPL ETE BLOOD COUNT WITH AUTO DIFF* mono# 0.41 10E3/ uL 0.45-1 .30 low Not Available [facility] [address], [place], [address], 06/24/2023 13:42:47 06/23/19 24 06/23/2023 COMPL ETE BLOOD COUNT WITH AUTO DIFF* eos# 0.18 10E3/ uL 0.00-0 .40 Not Available [facility] [address], [place], [address], 06/24/2023 13:42:47 06/23/19 24 06/23/2023 COMPL ETE BLOOD COUNT WITH AUTO DIFF* baso# 0.04 10E3/ uL 0.00-0 .10 Not Available [facility] [address], [place], [address], 06/24/2023 13:42:47 06/23/19 24 06/23/2023 COMPL ETE BLOOD COUNT WITH AUTO DIFF* Ig# 0.03 10E3/ uL 0.00-0 .09 Not Available [facility] [address], [place], [address], 06/24/2023 13:42:47 06/23/19 24 06/23/2023 COMPR EHENS [...] Available [facility] [address], [place], [address], 06/24/2023 13:42:48 06/23/19 24 06/23/2023 COMPR EHENS DAVID METAB OLIC PANEL * BUN 26 mg/dL 8-23 high Not Available [facility] [address], [place], [address], 06/24/2023 13:42:48 06/23/19 24 06/23/2023 COMPR EHENS DAVID METAB OLIC PANEL * calcium 8.5 mg/dL 8.8-10 .2 low Not Available [facility] [address], [place], [address], 06/24/2023 13:42:48 06/23/19 24 06/23/2023 COMPR EHENS DAVID METAB OLIC PANEL * creatinine 1.31 mg/dL 0.80-1 .30 high Not Available [facility] [address], [place], [address], 06/24/2023 13:42:48 06/23/19 24 06/23/2023 COMPR EHENS DAVID METAB OLIC PANEL * sodium 142 mmol/ L 136-14 5 Not Available [facility] [address], [place], [address], 06/24/2023 13:42:48 06/23/19 24 06/23/2023 COMPR EHENS DAVID METAB OLIC PANEL * potassium 4.3 mmol/ L 3.5-5. 1 Not Available [facility] [address], [place], [address], 06/24/2023 13:42:48 06/23/19 24 06/23/2023 COMPR EHENS DAVID METAB OLIC PANEL * chloride 107 mEq/L 98-107 Not Available [facility] [address], [place], [address], 06/24/2023 13:42:48 06/23/19 24 06/23/2023 COMPR EHENS DAVID METAB OLIC PANEL * carbon dioxide 25 mmol/ L 23-30 Not Available [facility] [address], [place], [address], 06/24/2023 13:42:48 06/23/19 24 06/23/2023 COMPR EHENS DAVID METAB OLIC PANEL * total protein 5.0 g/dL 6.2-8. 1 low Not Available [facility] [address], [place], [address], 06/24/2023 13:42:48 06/23/19 24 06/23/2023 COMPR EHENS DAVID METAB OLIC PANEL * albumin 3.1 g/dL 3.2-4. 6 low Not Available [facility] [address], [place], [address], 06/24/2023 13:42:48 06/23/19 24 06/23/2023 COMPR EHENS DAVID METAB OLIC PANEL * globulin 1.9 g/dL 2.3-3. 4 low Not Available [facility] [address], [place], [address], 06/24/2023 13:42:48 06/23/19 24 06/23/2023 COMPR EHENS DAVID METAB OLIC PANEL * A/G ratio 1.6 g/dL 0.8-2. 0 Not Available [facility] [address], [place], [address], 06/24/2023 13:42:48 06/23/19 24 06/23/2023 COMPR EHENS DAVID METAB OLIC PANEL * alkaline phosphatase 66 U/L 30-120 Not Available [facility] [address], [place], [address], 06/24/2023 13:42:48 06/23/19 24 06/23/2023 COMPR EHENS DAVID METAB OLIC PANEL * ALT (SGPT) 15 U/L 13-40 Not Available [facility] [address], [place], [address], 06/24/2023 13:42:48 06/23/19 24 06/23/2023 COMPR EHENS DAVID METAB OLIC PANEL * AST (SGOT) 13 U/L 19-48 low Not Available [facility] [address], [place], [address], 06/24/2023 13:42:48 06/23/19 24 06/23/2023 COMPR EHENS DAVID METAB OLIC PANEL * bilirubin, total 0.69 mg/dL 0.20-1 .10 Not Available [facility] [address], [place], [address], 06/24/2023 13:42:48 06/23/19 24 06/23/2023 COMPR EHENS [...] [facility] [address], [place], [address], 06/24/2023 13:42:48 06/23/19 24 06/23/2023 FOLAT E* folate 13.8 NG/mL 8.6-58 .9 Not Available [facility] [address], [place], [address], 06/24/2023 13:42:48 06/23/19 24 06/23/2023 IRON* iron 89 ug/dL 65-175 Intox icate d Child : 280 - 2250 ug/dL Fatal ly Poiso benny Child : >1800 ug/dL Intox icate d Child : 280 - 2250 ug/dL Fatal ly Poiso benny Child : >1800 ug/dL Not Available [facility] [address], [place], [address], 06/24/2023 13:42:49 06/23/19 24 06/23/2023 MAGNE SIUM* magnesium 1.80 mg/dL 1.60-2 .40 Not Available [facility] [address], [place], [address], 06/24/2023 13:42:49 06/23/19 24 06/23/2023 VITAM IN B12* vitamin B12 257 pg/mL 250-11 00 Not Available [facility] [address], [place], [address], 06/24/2023 13:42:50 06/23/19 24 06/23/2023 COMPL ETE BLOOD COUNT WITH AUTO DIFF* WBC 7.19 10E3/ uL 4.50-1 1.50 Not Available [facility] [address], [place], [address], 06/24/2023 15:10:26 06/23/19 24 06/23/2023 COMPL ETE BLOOD COUNT WITH AUTO DIFF* RBC 4.55 10E6/ uL 4.60-6 .00 low Not Available [facility] [address], [place], [address], 06/24/2023 15:10:26 06/23/19 24 06/23/2023 COMPL ETE BLOOD COUNT WITH AUTO DIFF* HGB 13.8 g/dL 14.0-1 8.0 low Not Available [facility] [address], [place], [address], 06/24/2023 15:10:26 06/23/19 24 06/23/2023 COMPL ETE BLOOD COUNT WITH AUTO DIFF* HCT 40.5 % 40.0-5 4.0 Not Available [facility] [address], [place], [address], 06/24/2023 15:10:26 06/23/19 24 06/23/2023 COMPL ETE BLOOD COUNT WITH AUTO DIFF* MCV 89 fL 80-100 Not Available [facility] [address], [place], [address], 06/24/2023 15:10:26 06/23/19 24 06/23/2023 COMPL ETE BLOOD COUNT WITH AUTO DIFF* MCH 30 pg 26-32 Not Available [facility] [address], [place], [address], 06/24/2023 15:10:26 06/23/19 24 06/23/2023 COMPL ETE BLOOD COUNT WITH AUTO DIFF* MCHC 34.1 g/dL 32.0-3 6.0 Not Available [facility] [address], [place], [address], 06/24/2023 15:10:26 06/23/19 24 06/23/2023 COMPL ETE BLOOD COUNT WITH AUTO DIFF* RDW 13.2 % 11.5-1 4.5 Not Available [facility] [address], [place], [address], 06/24/2023 15:10:26 06/23/19 24 06/23/2023 COMPL ETE BLOOD COUNT WITH AUTO DIFF* plt 129 10E3/ uL 150-45 0 low Not Available [facility] [address], [place], [address], 06/24/2023 15:10:26 06/23/19 24 06/23/2023 COMPL ETE BLOOD COUNT WITH AUTO DIFF* neut% 71.7 % 50.0-7 0.0 high Not Available [facility] [address], [place], [address], 06/24/2023 15:10:26 06/23/19 24 06/23/2023 COMPL ETE BLOOD COUNT WITH AUTO DIFF* lymph% 19.1 % 18.0-4 2.0 Not Available [facility] [address], [place], [address], 06/24/2023 15:10:26 06/23/19 24 06/23/2023 COMPL ETE BLOOD COUNT WITH AUTO DIFF* mono% 5.7 % 2.0-11 .0 Not Available [facility] [address], [place], [address], 06/24/2023 15:10:26 06/23/19 24 06/23/2023 COMPL ETE BLOOD COUNT WITH AUTO DIFF* eos% 2.5 % 1.0-3. 0 Not Available [facility] [address], [place], [address], 06/24/2023 15:10:26 06/23/19 24 06/23/2023 COMPL ETE BLOOD COUNT WITH AUTO DIFF* baso% 0.6 % 0.0-2. 0 Not Available [facility] [address], [place], [address], 06/24/2023 15:10:26 06/23/19 24 06/23/2023 COMPL ETE BLOOD COUNT WITH AUTO DIFF* Ig% 0.4 % 0.0-0. 6 Not Available [facility] [address], [place], [address], 06/24/2023 15:10:26 06/23/19 24 06/23/2023 COMPL ETE BLOOD COUNT WITH AUTO DIFF* neut# 5.16 10E3/ uL 2.30-8 .10 Not Available [facility] [address], [place], [address], 06/24/2023 15:10:26 06/23/19 24 06/23/2023 COMPL ETE BLOOD COUNT WITH AUTO DIFF* lymph# 1.37 10E3/ uL 0.80-4 .80 Not Available [facility] [address], [place], [address], 06/24/2023 15:10:26 06/23/19 24 06/23/2023 COMPL ETE BLOOD COUNT WITH AUTO DIFF* mono# 0.41 10E3/ uL 0.45-1 .30 low Not Available [facility] [address], [place], [address], 06/24/2023 15:10:26 06/23/19 24 06/23/2023 COMPL ETE BLOOD COUNT WITH AUTO DIFF* eos# 0.18 10E3/ uL 0.00-0 .40 Not Available [facility] [address], [place], [address], 06/24/2023 15:10:26 06/23/19 24 06/23/2023 COMPL ETE BLOOD COUNT WITH AUTO DIFF* baso# 0.04 10E3/ uL 0.00-0 .10 Not Available [facility] [address], [place], [address], 06/24/2023 15:10:26 06/23/19 24 06/23/2023 COMPL ETE BLOOD COUNT WITH AUTO DIFF* Ig# 0.03 10E3/ uL 0.00-0 .09 Not Available [facility] [address], [place], [address], 06/24/2023 15:10:26 06/23/19 24 06/23/2023 FOLAT E* folate 13.8 NG/mL 8.6-58 .9 Not Available [facility] [address], [place], [address], 06/24/2023 15:10:27 10/06/19 24 10/06/2023 COMPL ETE BLOOD COUNT WITH AUTO DIFF* WBC 6.30 10E3/ uL 4.50-1 1.50 Not Available [facility] [address], [place], [address], 10/07/2023 17:44:26 10/06/19 24 10/06/2023 COMPL ETE BLOOD COUNT WITH AUTO DIFF* RBC 4.44 10E6/ uL 4.60-6 .00 low Not Available [facility] [address], [place], [address], 10/07/2023 17:44:26 10/06/19 24 10/06/2023 COMPL ETE BLOOD COUNT WITH AUTO DIFF* HGB 13.8 g/dL 14.0-1 8.0 low Not Available [facility] [address], [place], [address], 10/07/2023 17:44:26 10/06/19 24 10/06/2023 COMPL ETE BLOOD COUNT WITH AUTO DIFF* HCT 42.8 % 40.0-5 4.0 Not Available [facility] [address], [place], [address], 10/07/2023 17:44:26 10/06/19 24 10/06/2023 COMPL ETE BLOOD COUNT WITH AUTO DIFF* MCV 96 fL 80-100 Not Available [facility] [address], [place], [address], 10/07/2023 17:44:26 10/06/19 24 10/06/2023 COMPL ETE BLOOD COUNT WITH AUTO DIFF* MCH 31 pg 26-32 Not Available [facility] [address], [place], [address], 10/07/2023 17:44:26 10/06/19 24 10/06/2023 COMPL ETE BLOOD COUNT WITH AUTO DIFF* MCHC 32.2 g/dL 32.0-3 6.0 Not Available [facility] [address], [place], [address], 10/07/2023 17:44:26 10/06/19 24 10/06/2023 COMPL ETE BLOOD COUNT WITH AUTO DIFF* RDW 14.6 % 11.5-1 4.5 high Not Available [facility] [address], [place], [address], 10/07/2023 17:44:26 10/06/19 24 10/06/2023 COMPL ETE BLOOD COUNT WITH AUTO DIFF* plt 111 10E3/ uL 150-45 0 low Not Available [facility] [address], [place], [address], 10/07/2023 17:44:26 10/06/19 24 10/06/2023 COMPL ETE BLOOD COUNT WITH AUTO DIFF* neut% 59.4 % 50.0-7 0.0 Not Available [facility] [address], [place], [address], 10/07/2023 17:44:26 10/06/19 24 10/06/2023 COMPL ETE BLOOD COUNT WITH AUTO DIFF* lymph% 27.3 % 18.0-4 2.0 Not Available [facility] [address], [place], [address], 10/07/2023 17:44:26 10/06/19 24 10/06/2023 COMPL ETE BLOOD COUNT WITH AUTO DIFF* mono% 8.1 % 2.0-11 .0 Not Available [facility] [address], [place], [address], 10/07/2023 17:44:26 10/06/19 24 10/06/2023 COMPL ETE BLOOD COUNT WITH AUTO DIFF* eos% 4.4 % 1.0-3. 0 high Not Available [facility] [address], [place], [address], 10/07/2023 17:44:26 10/06/19 24 10/06/2023 COMPL ETE BLOOD COUNT WITH AUTO DIFF* baso% 0.6 % 0.0-2. 0 Not Available [facility] [address], [place], [address], 10/07/2023 17:44:26 10/06/19 24 10/06/2023 COMPL ETE BLOOD COUNT WITH AUTO DIFF* Ig% 0.2 % 0.0-0. 6 Not Available [facility] [address], [place], [address], 10/07/2023 17:44:26 10/06/19 24 10/06/2023 COMPL ETE BLOOD COUNT WITH AUTO DIFF* neut# 3.74 10E3/ uL 2.30-8 .10 Not Available [facility] [address], [place], [address], 10/07/2023 17:44:26 10/06/19 24 10/06/2023 COMPL ETE BLOOD COUNT WITH AUTO DIFF* lymph# 1.72 10E3/ uL 0.80-4 .80 Not Available [facility] [address], [place], [address], 10/07/2023 17:44:26 10/06/19 24 10/06/2023 COMPL ETE BLOOD COUNT WITH AUTO DIFF* mono# 0.51 10E3/ uL 0.45-1 .30 Not Available [facility] [address], [place], [address], 10/07/2023 17:44:26 10/06/19 24 10/06/2023 COMPL ETE BLOOD COUNT WITH AUTO DIFF* eos# 0.28 10E3/ uL 0.00-0 .40 Not Available [facility] [address], [place], [address], 10/07/2023 17:44:26 10/06/19 24 10/06/2023 COMPL ETE BLOOD COUNT WITH AUTO DIFF* baso# 0.04 10E3/ uL 0.00-0 .10 Not Available [facility] [address], [place], [address], 10/07/2023 17:44:26 10/06/19 24 10/06/2023 COMPL ETE BLOOD COUNT WITH AUTO DIFF* Ig# 0.01 10E3/ uL 0.00-0 .09 Not Available [facility] [address], [place], [address], 10/07/2023 17:44:26 10/06/19 24 10/06/2023 COMPL ETE BLOOD COUNT WITH AUTO DIFF* reflex Smear Review Not Available [facility] [address], [place], [address], 10/07/2023 17:44:26 10/06/19 24 10/06/2023 COMPR EHENS [...] Available [facility] [address], [place], [address], 10/07/2023 17:44:26 10/06/19 24 10/06/2023 COMPR EHENS DAVID METAB OLIC PANEL * BUN 19 mg/dL 8-23 Not Available [facility] [address], [place], [address], 10/07/2023 17:44:26 10/06/19 24 10/06/2023 COMPR EHENS DAVID METAB OLIC PANEL * calcium 8.2 mg/dL 8.8-10 .2 low Not Available [facility] [address], [place], [address], 10/07/2023 17:44:26 10/06/19 24 10/06/2023 COMPR EHENS DAVID METAB OLIC PANEL * creatinine 1.05 mg/dL 0.80-1 .30 Not Available [facility] [address], [place], [address], 10/07/2023 17:44:26 10/06/19 24 10/06/2023 COMPR EHENS DAVID METAB OLIC PANEL * sodium 142 mmol/ L 136-14 5 Not Available [facility] [address], [place], [address], 10/07/2023 17:44:26 10/06/19 24 10/06/2023 COMPR EHENS DAVID METAB OLIC PANEL * potassium 4.2 mmol/ L 3.5-5. 1 Not Available [facility] [address], [place], [address], 10/07/2023 17:44:26 10/06/19 24 10/06/2023 COMPR EHENS DAVID METAB OLIC PANEL * chloride 108 mEq/L 98-107 high Not Available [facility] [address], [place], [address], 10/07/2023 17:44:26 10/06/19 24 10/06/2023 COMPR EHENS DAVID METAB OLIC PANEL * carbon dioxide 26 mmol/ L 23-30 Not Available [facility] [address], [place], [address], 10/07/2023 17:44:26 10/06/19 24 10/06/2023 COMPR EHENS DAVID METAB OLIC PANEL * total protein 4.9 g/dL 6.2-8. 1 low Not Available [facility] [address], [place], [address], 10/07/2023 17:44:26 10/06/19 24 10/06/2023 COMPR EHENS DAVID METAB OLIC PANEL * albumin 2.9 g/dL 3.2-4. 6 low Not Available [facility] [address], [place], [address], 10/07/2023 17:44:26 10/06/19 24 10/06/2023 COMPR EHENS DAVID METAB OLIC PANEL * globulin 2.0 g/dL 2.3-3. 4 low Not Available [facility] [address], [place], [address], 10/07/2023 17:44:26 10/06/19 24 10/06/2023 COMPR EHENS DAVID METAB OLIC PANEL * A/G ratio 1.5 g/dL 0.8-2. 0 Not Available [facility] [address], [place], [address], 10/07/2023 17:44:26 10/06/19 24 10/06/2023 COMPR EHENS DAVID METAB OLIC PANEL * alkaline phosphatase 73 U/L 30-120 Not Available [facility] [address], [place], [address], 10/07/2023 17:44:26 10/06/19 24 10/06/2023 COMPR EHENS DAVID METAB OLIC PANEL * ALT (SGPT) 13 U/L 13-40 Not Available [facility] [address], [place], [address], 10/07/2023 17:44:26 10/06/19 24 10/06/2023 COMPR EHENS DAVID METAB OLIC PANEL * AST (SGOT) 12 U/L 19-48 low Not Available [facility] [address], [place], [address], 10/07/2023 17:44:26 10/06/19 24 10/06/2023 COMPR EHENS DAVID METAB OLIC PANEL * bilirubin, total 0.97 mg/dL 0.20-1 .10 Not Available [facility] [address], [place], [address], 10/07/2023 17:44:26 10/06/19 24 10/06/2023 COMPR EHENS [...] Not Available [facility] [address], [place], [address], 10/07/2023 17:44:26 06/15/19 24 06/15/2023 XR, hip + pelvi s, unila teral , 4 or more view No observ ation record ed. [email or web address] [facility] [address], [place], [address], 07/13/2023 07:14:48 Result Notes None recorded. Problems Name Problem SNOMED Code Status Onset Date Resolution Date Notes Provider Name and Address Organization Details Recorded Time Essential hypertensio n [id number] Active 2022 YANIV Arias, PMHNP-BC [address] [place], [address], [place] [facility] 18:14:22 Neuropathy 796131538 Active 2022 YANIV Arias, PMHNP-BC [address], [place], [address], [facility] 4 18:14:22 Obstructive sleep apnea of adult 5753057034717 Active 2023 Cristy Dawkins [facility], PMHNP-BC [address], [place], [address], [facility] 4 07:25:43 Osteoarthri tis of multiple joints 896584054 Active 2023 Cristy Dawkins [facility]-BC, PMHNP-BC [address], [place], [address], [facility] 4 07:06:33 Low back pain 558298551 Active 2023 Cristy Dawkins [employer]END[employer] EMPLOYMENT SPECIALIST-BC, PMHNP-BC [address], [place], [address], [facility] 4 07:06:33 Problem Notes None recorded. Medical Equipment None Reported. Allergies Allergen ID Allergen Name Allergen Category Reaction Reaction Severity Criticality Documentation Date Start Date Code Code System Note Provider Name and Address Organization Details Recorded Time 6753 amlodipin e medicatio n Not available Not available Not available 02/22/2023 98144 RxNorm Shamyra [facility] 3 16:46:55 6754 hydrochlo rothiazid e medicatio n Not available Not available Not available 02/22/2023 5487 RxNorm Shamyra [place] [facility] 3 16:47:12 Medications Name Sig Start Date [...] % 97.4 [degF] 130 mm[Hg] 86 mm[Hg] [facility] 4 12:59:18 Date Recorded Body height Heart rate Respiratory rate Oxygen saturation Oxygen saturation in Arterial blood by Pulse oximetry Body temperature Systolic blood pressure Diastolic blood pressure Provider Name and Address Organization Details Last Updated DateTime 4 180.34 cm 58 /min 18 /min 97 % 97 % 98.1 [degF] 152 mm[Hg] 82 mm[Hg] [facility] 4 14:55:21 Date Recorded Body height Heart rate Respiratory rate Oxygen saturation Oxygen saturation in Arterial blood by Pulse oximetry Body temperature Systolic blood pressure Diastolic blood pressure Provider Name and Address Organization Details Last Updated DateTime 4 180.34 cm 60 /min 16 /min 97 % 97 % 97.7 [degF] 144 mm[Hg] 82 mm[Hg] [facility] 4 09:05:20 Date Recorded Body height Body mass index (BMI) Body weight Provider Name and Address Organization Details Last Updated DateTime 02/21/2023 180.34 cm 26.4 kg/m2 05143.96 g Cristy Dawkins, OFFENDER EMPLOYMENT SPECIALIST-BC, PMHNP-BC [address] [place], [address], [facility] 02/22/2023 16:50:28 Date Recorded Heart rate Respiratory rate Oxygen saturation Oxygen saturation in Arterial blood by Pulse oximetry Body temperature Systolic blood pressure Diastolic blood pressure Provider Name and Address Organization Details Last Updated DateTime 3 53 /min 18 /min 97 % 97 % 97 [degF] 122 mm[Hg] 68 mm[Hg] [facility] 3 15:23:32 Date Recorded Body height Heart rate Respiratory rate Oxygen saturation Oxygen saturation in Arterial blood by Pulse oximetry Body temperature Systolic blood pressure Diastolic blood pressure Provider Name and Address Organization Details Last Updated DateTime 3 180.34 cm 55 /min 18 /min 97 % 97 % 97.2 [degF] 140 mm[Hg] 78 mm[Hg] [facility] 3 12:12:20 Date Recorded Body height Heart rate Respiratory rate Oxygen saturation Oxygen saturation in Arterial blood by Pulse oximetry Body temperature Systolic blood pressure Diastolic blood pressure Provider Name and Address Organization Details Last Updated DateTime 3 180.34 cm 57 /min 16 /min 97 % 97 % 97.6 [degF] 148 mm[Hg] 80 mm[Hg] [facility] 3 11:09:11 Social History Question Answer Notes LastModified by Organizat ion Details LastModified Time Tobacco Smoking Status Former Smoker Jose weathers [facility] 02/22/2023 16:48:48 Do You Have An Advance Directive? Yes [email or web address] Information not available 02/22/2023 Are You Blind Or Do You Have Difficulty Seeing? No [email or web address] Information not available 02/22/2023 Is Blood Transfusion Acceptable In An Emergency? Yes Information not available 02/22/2023 What Is Your Level Of Caffeine Consumption? Occasional [email or web address] Information not available 02/22/2023 What Type Of Mamma Logist Do You Use? None [email or web address] Information not available 02/22/2023 What Is Your Code Status? DNR Information not available 02/03/2023 Are You Deaf Or Do You Have Serious Difficulty Hearing? No [email or web address] Information not available 02/22/2023 What Type Of Diet Are You Following? REGULAR [email or web address] Information not available 02/22/2023 What Is The Highest Grade Or Level Of School You Have Completed Or The Highest Degree You Have Received? [id number] Information not available 02/22/2023 Have There Been Any Changes To Your Family Or Social Situation? No [email or web address] Information not available 02/22/2023 When Did You Quit Smoking? 1-5yearssincel adia [email or web address] Information not available 02/22/2023 Are There Any Guns Present In Your Home? No [email or web address] Information not available 02/22/2023 Do You Have A Medical Power Of Yarn Texture Machine Operator? Yes Miguel Galaviz (son-in-la w) Information not available 02/03/2023 What Was The Date Of Your Most Recent Tobacco Screening? 02/21/2023 [email or web address] Information not available 02/22/2023 How Many Children Do You Have? 0 [email or web address] Information not available 02/22/2023 What Is Your Current Pack Years? 10packyears [email or web address] Information not available 02/22/2023 Do You Have Any Pets? No [email or web address] Information not available 02/22/2023 What Is Your Relationship Status? [email or web address] Information not available 02/22/2023 Do You Use Your Seat Belt Or Car Seat Routinely? Yes [email or web address] Information not available 02/22/2023 Are You Sexually Active? No [email or web address] Information not available 02/22/2023 Do You Have Smoke And Carbon Monoxide Detectors In Your Home? Yes [email or web address] Information not available 02/22/2023 At What Age Did You Start Smoking Tobacco? 20 [email or web address] Information not available 02/22/2023 Are You Passively Exposed To Smoke? No [email or web address] Information not available 02/22/2023 Do You Participate In Social Media? No Information not available 02/22/2023 Do You Use Sunscreen Routinely? No [email or web address] Information not available 02/22/2023 How Many Years Have You Smoked Tobacco? 2 [email or web address] Information not available 02/22/2023 Do You Have Difficulty Walking Or Climbing Stairs? Yes [email or web address] Information not available 02/22/2023 Are You Currently In School? No [email or web address] Information not available 02/22/2023 Do You Have Any Dietary Restrictions? No [email or web address] Information not available 02/22/2023 Sex: Male Functional Status Question Answer Note LastModified by Organizat ion Details LastModified Time Do you use any illicit or recreational drugs? No [email or web address] Information not available 02/22/2023 Do you or have you ever used any other forms of tobacco or nicotine? No Information not available 02/22/2023 What is your level of alcohol consumption? None [email or web address] Information not available 02/22/2023 Are you currently employed? No [email or web address] Information not available 02/22/2023 Do you have transportation difficulties? No Information not available 02/22/2023 Are you able to walk? YESASSIST [email or web address] Information not available 02/22/2023 Do you have difficulty doing errands alone? Yes [email or web address] Information not available 02/22/2023 Are you able to care for yourself? Yes [email or web address] Information not available 02/22/2023 Do you have difficulty dressing or bathing? No [email or web address] Information not available 02/22/2023 What is your exercise level? None [email or web address] Information not available 02/22/2023 Mental Status Question Answer Note LastModified by Organizat ion Details LastModified Time Do you feel stressed (tense, restless, nervous, or anxious, or unable to sleep at night)? [id number] [email or web address] Information not available 02/22/2023 Do you have difficulty concentrating, remembering or making decisions? No [email or web address] Information no t available 02/22/2023 Family History Relationship Description Onset Age of this Age Resolved Age Notes LastModified by Organization Details LastModified Time Father Essential hypertension [email or web address] Not available 16:55:25 Medical History Condition Response [...] SNOMED-CT Code Diagnosis ICD10 Code Diagnosis Note [id number] Cristy Dawkins OFFENDER EMPLOYMENT SPECIALIST-BC, PMHNP-BC [facility] [address] [place] [address] 02/21/2023 08:12:18 02/22/2023 19:33:44 Thoracic back pain 794045576 M54.6 Advance care planning 73 7493112 Z71.89 Essential hypertension 98395621 I10 taking medication . labs to eval levels. Neuropathy 635126116 G62 .9 safety when ambulating .numbness. Denies pain. 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 Low back pain 947924516 M54.50 Pain of le ft hip joint 7335395310 00808 M25.552 Essential hypertension 57985482 I10 taking medication . labs to eval levels. Anemia 546753781 D64.9 labs to eval levels. [id number] Cristy Dawkins OFFEND[employer] EMPLOYMENT SPECIALIST-BC, PMHNP-BC [facility] [address] [place] [address] 07/12/2023 13:37:52 07/14/2023 14:17:46 Low back pain 259095839 M54.50 Essential hypertension 35643746 I10 Osteoarthr itis of multiple joints 667676470 M15.9 Dressing-g rooming self-care deficit 790960089 Z74.1 Obstructiv e sleep apnea of adult 6896627496 103 G47.33 [id number] YANIV Arias, PMHNGARRISON [facility] [address] [place] [address] 08/03/2023 08:40:09 08/04/2023 08:52:46 Low back pain 839624238 M54.50 Osteoarthr itis of multiple joints 718864198 M15.9 Neuropathy 692985539 G62 .9 Health Concerns Section Related Observation LastModified by Organization Detai ls LastModified Time None Recorded Concern Status LastModified by Organization Details LastModified Time None Recorded Advance Directives Directive Y: Payers Insurance Date Sequence Insurance Name Policy Number Policy Greco Covered Member ID Greco Member ID Guarantor Name 08/28/2023 1 [employer] - GOLD PLUS (MEDICARE REPLACEMENT/A DVANTAGE - HMO) Crow Smith III [id number] Crow Smith 02/23/2023 1 MEDICARE-OR (MEDICARE) Crow Smith III [id number] Crow Smith Notes Date Note Type Note Provider Name and Address Organization Details Recorded Time 02/21/2023 text/html Back PainReporte d bypatient.Location:[facility] Severity:moderate (5-7) Associated Symptoms:no fever; no [...] in BLE. YANIV Arias, MICHELLE [address] [place], [address], [facility] 02/22/2023 17:35:34 03/21/2023 text/html Back PainReporte d bypatient.Location:[facility] Severity:moderate (5-7) Alleviating Factors:NSAIDS Associated Symptoms:no [...] routine labs. YANIV Arias, PMIDALIAP-BC [address] [place], [address], [facility] [...] or palpitations. YANIV Arias, PMIDALIAP-BC [address] [place], [address], [facility] [...] or palpitations. YANIV Arias, MICHELLE [address], [place], [address] [place] [address], [facility] 07/13/2023 07:30:33 08/03/2023 text/html Joint & Soft Tis marely PainReported bypatient.Location:[facility] pain Quality:aching;dull Timing:frequent Alleviating Factors:nothing helps Aggravating [...] fall risk. YANIV Arias, MICHELLE [address] [address], [facility] 08/04/2023 07:07:27
--- OUTSIDE RECORDS SUMMARY | 2024-11-21 12:48 | XMS_ITS | Continuity of Care Document ---
Author Organization [employer] Address [address] [place] [address] Phone Care Team Providers Care Triage Licensed Practical Nurse Name Role Phone Holly Nicolas MD Unavailable [...] Diagnoses Date Provider Providers Copied on Encounter [facility], [address], [place], [place], [address] , tel: [phone] [facility] No Information 7 Maria Isabel Barrera. [address] [place] [address], [place], [place], [address], [place]. [phone] [facility], [address], [place], [place], [address] , tel: [phone] [facility] No Information 0 Maria Isabel Barrera. [address] [place] [address], [place], [place], [address], . [phone] [facility], [address], [place], [place], [address] , [place] tel:[phone] [facility] Mixed hyperlipidemia Jul- 7 Vonjv Emy. [address] [place] [address], [place], [place], [address], [place]. tel:[phone] Referring Provider: Holly Baires, [address] [place] [address], [place], [address] . tel:[phone] [facility], [address], [place], [place], [address] , [place] tel:[phone] [facility] Essential hypertensionMixed hyperlipidemiaThrom bocytopeniaPolycyth emia veraObstructive sleep apnea syndromeBenign prostatic hyperplasia with lower urinary tract symptoms, unspecified morphologyMale erectile dysfunction, unspecifiedDermatit is 7 Kj Sarabia. [address] [place] [address], [id number], [place]. tel:[phone] Referring Provider: Holly Baires, [address] [place] [address], [place], [address] . tel:[phone] [facility], [address], [place], [place], [address] , tel: [phone] [facility] No Information Mar-2 1-201 6 Brooklynn Bain. [address] [place] [address], [place], [place], [address]. tel:[phone] [facility], [address], [place], [address] , [place] tel: [phone] [facility] No Information 5 6 Maria Isabel Barrera. [address] [place] [address], [place], [place], [address], [place]. [phone] Referring Provider: Holly Baires, [address] [place] [address], [place], [address] . tel:[phone] [facility], [address], [place], [address] , [place] tel: [phone] [facility] FolliculitisEssenti al hypertensionMixed hyperlipidemiaObstr uctive sleep apnea syndromePolycythemi a veraThrombocytopeni aBenign prostatic hyperplasia with lower urinary tract symptoms, unspecified morphologyMale erectile dysfunction, unspecifiedPersonal history of colonic polyps Sep-0 8 6 Kj Sarabia. [address] [place] [address], [id number], [place]. [phone] Referring Provider: Holly Baires, [address] [place] [address], [place], [address] . tel:[phone] [facility], [address], [place], [place], [address] , tel:[phone] [facility] No Information Ahsan- 0-201 6 Neetu Erazo. [address] [place] [address], [id number], [place]. tel:[phone] [facility], [address], [place], [place], [address] , tel: [phone] [facility] Encounter for general adult medical examination without abnormal findingsEssential (primary) hypertensionMixed hyperlipidemiaPolyc ythemia veraObstructive sleep apnea (adult) (pediatric)Benign prostatic hyperplasia with lower urinary tract symptoms, unspecified morphologyMale erectile dysfunction, unspecifiedMononeur opathy, unspecifiedPersonal history of colonic polyps Sep- 6 Maria Isabel Barrera. [address] [place] [address], [place], [place], [address], . [phone] Referring Provider: Holly Baires, [address] [place] [address], [place], [address] . tel:[phone] [facility], [address], [place], [place], [address] , tel: [phone] [facility] Benign prostatic hyperplasia with lower urinary tract symptoms, unspecified morphology Sep- 6 Brooklynn Bain. [address] [place] [address] [address], [place], [place], [address]. tel:[phone] [facility], [address], [place], [place], [address] , tel: [phone] [facility] Candidal dermatitis 5 Maria Isabel Barrera. [address] [place] [address], [place] [address], [place], [place], [address], . tel:[phone] [facility], [address], [place], [address] , [place] tel:[phone] [facility] Essential (primary) hypertensionMixed hyperlipidemiaObstr uctive sleep apnea (adult) (pediatric)Polycyth emia veraPersonal history of colonic polypsMononeuropath y, unspecifiedMale erectile dysfunction, unspecifiedEncounte r for immunizationCandida l dermatitis 5 Kj Sarabia. [address] [place] [address], [id number], . tel:[phone] Referring Provider: Holly Baires, [address] [place] [address] [address], [place], [address] . tel:[phone] [facility], [address], [place], [place], [address] , [place] tel: [phone] [facility] Essential (primary) hypertensionPersona l history of colonic polypsMale erectile dysfunction, unspecifiedMixed hyperlipidemiaMonon europathy, unspecifiedObstruct kirstne sleep apnea (adult) (pediatric)Polycyth emia vera 5 Underwood Johny Sarabia. [address] [place] [address], [address], [place], [place], [address], [place]. tel:[phone] [facility], [address], [place], [place], [address] , [place] tel: [phone] [facility] Mixed hyperlipidemiaPolyc ythemiaHigh blood pressureObstructive sleep apneaAllergic dermatitis 5 Maria Isabel Barrera. [address] [place] [address], [facility] [address], [place], [place], [address], [place]. tel:[phone] Referring Provider: Holly Baires, [address] [place] [address], [place], [address] . tel:[phone] [facility], [address], [place], [place], [address] , [place] tel: [phone] [facility] No Information 5 Maria Isabel Barrera. [address] [place] [address], [place], [place], [address], [place]. tel:[phone] [facility], [address], [place], [place], [address] , [place] tel:[phone] [facility] No Information 4 Maria Isabel Barrera. [address] [place] [address] [address], [place], [address], [place]. tel:[phone] [facility], [address], [place], [address] , [place] tel:[phone] [facility] No Information 4 Maria Isabel Barrera. [address] [place] [address], [address], [place], [place], [address], [place]. [phone] [facility], [address], [place], [place], [address] , [place] tel:[phone] [facility] History of colonic polypsHigh blood pressureObstructive sleep apneaNeuropathyErec tile dysfunction 4 Maria Isabel Barrera. [address] [place] [address], [address], [place], [place], [address], [place]. [phone] Referring Provider: Holly Baires, [address] [place] [address] [address], [place], [address] . tel:[phone] Family History Family Member Type Diagnosis Age [...] Insurance type Covered democrat ID Authoriza tion(s) [employer] [id number] [employer] [id number] [employer] [id number] [employer] [id number] Social History Type Description Quantity Date Captured [...]
--- OUTSIDE RECORDS SUMMARY | 2024-11-21 12:48 | XMS_ITS | Clinical Summary ---
Author Organization [facility] Jessie salomon Address [address] [place] [address] Phone Care Team Providers Care Java Tech Lead Name Role Phone Eric French MD Primary Care Provider [phone] Allergies Active Allergy Reactions Criticality Noted Date [...] Comments Blood Pressure 162/80 05/05/2022 2:40 PM PROGRAM ADVISOR Pulse 60 05/05/2022 2:40 PM PROGRAM ADVISOR Temperature 35.3 C (95.5 F) 05/05/2022 2:40 PM PROGRAM ADVISOR Respiratory Rate - - Oxygen Saturation - - Inhaled Oxygen Concentration - - Weight 89.4 kg (197 lb) 05/05/2022 2:40 PM PROGRAM ADVISOR Height 182.9 cm (6') 05/05/2022 2:40 PM PROGRAM ADVISOR Body Mass Index 26.72 05/05/2022 2:40 PM PROGRAM ADVISOR Plan of Treatment Health Maintenance Due Date Last Done Comments Pneumococcal PPSV23/PCV13 65 + Years / Low and Medium Risk (1 of 4 - PCV) 1992 Influenza Vaccine (Season Ended) 2025 Insurance Care Teams Java Tech Lead Relationship Specialty Start Date End Date Eric French MD [address] [place] [address] PCP - General Internal Medicine 05/05/22
--- OUTSIDE RECORDS SUMMARY | 2024-11-21 12:48 | XMS_ITS | Encounter Summary ---
Author Organization [employer] Address [address] [facility] [address] 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
--- OUTSIDE RECORDS SUMMARY | 2024-11-21 12:48 | XMS_ITS | Continuity of Care Document ---
Author Organization [facility] Address [address] [place] [address] Phone Care Team Providers Care Performance Engineer Name Role Phone Mery Galindo Unavailable Unavailable [...] Diagnoses Date Provider Providers Copied on Encounter [facility], [address], [place], [place], [address], tel:[phone] [facility] No Information 0-201 0 Josie Ordonez. [address] [facility] , [address], [place], [place], [facility], [place]. tel:[phone] [facility], [address], [place], [place], [address], [place] tel:[phone] [facility] No Information 9-201 0 Leo Carrillo. [address] [facility] [address], [place], [place], [facility], [place]. tel:[phone] Referring Provider: Gerardo sanchez, [address], [place], [facility]. tel:[phone] Office/outpat ient Visit, [facility], [address] [place] [address] [address], [place], [place], [address], tel:[phone] [facility] No Information Luciano-0 6-201 0 Krishnasamy Gerardo. [address] [facility] [address], [place], [facility], [place]. tel:[phone] Office/outpat ient Visit, [facility], [address] [place] [address] [address], [place], [place], [address], tel:[phone] [facility] No Information Francesco-0 2-200 9 Krishnasamy Gerardo. [address] [place], [place] [address]ate [address], [facility], [place]. tel:[phone] Referring Provider: Gerardo sanchez, [facility] [address], [facility]. tel:[phone] [facility], [address] [place], [place] [address] [address], [place], [place], [address], tel:[phone] [facility] No Information Nov-1 6-200 9 Krishnasamy Gerardo. [facility] [address], [facility], [place]. tel:[phone] Referring Provider: Gerardo sanchez, [address] [facility] [address], [place], [facility]. tel:[phone] [facility], [address] [place] [address] [address], [place], [place], [address], tel:[phone] [facility] No Information Apr-0 8-200 9 Krishnasamy Gerardo. [facility] Corporate [facility] [address], [place], [address], [place]. tel:[phone] Referring Provider: Gerardo sanchez, [address] [facility] [address], [place], [address]. tel:[phone] [facility], [address], [place], [place], [address], [place] tel:[phone] [facility] No Information 7200 9 Goodrich OD Tonny. [address] [facility] [address], [place], [address], [place]. tel:[phone] Family History Family Member Type Diagnosis Age At Onset No Information Payers Payer name Insurance type Covered libertarian ID Zahida rainey(s) [employer] [id number] Social History Type Description Quantity Date Captured [...]
--- OUTSIDE RECORDS SUMMARY | 2024-11-21 12:48 | XMS_ITS | Encounter Summary ---
Author Organization [facility] Address [address] [place] [address] Care Team Providers Care Church History Professor Name Role Phone Jeremy Carreon MD Primary Care Provider [phone] Encounter Details Date Type Department Care Team (Latest Contact Info) Description 07/08/2006 Outpatient Historical HIS [facility] SINAI Boyd, MD Aristeo [address] 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 Gender Identity Not on file Sexual Orientation Not on file documented as of this encounter Plan of Treatment Not on file documented as of this encounter Procedures Procedure Name Priority Date/Time Associated Diagnosis Comments URINALYSIS WITH MICROSCOPIC Routine 07/08/2006 10:56 AM CHIEF MEDICAL OFFICER TSH WITH REFLEX FT4 AND FT3 Routine 07/08/2006 10:53 AM CHIEF MEDICAL OFFICER CBC WITH DIFFERENTIAL Routine 07/08/2006 10:53 AM CHIEF MEDICAL OFFICER CBC WITH DIFFERENTIAL Routine 07/08/2006 10:53 AM CHIEF MEDICAL OFFICER PSA Routine 07/08/2006 10:53 AM CHIEF MEDICAL OFFICER LIPID PANEL Routine 07/08/2006 10:53 AM CHIEF MEDICAL OFFICER COMPREHENSIVE METABOLIC PANEL Routine 07/08/2006 10:53 AM CHIEF MEDICAL OFFICER documented in this encounter Results * URINALYSIS WITH MICROSCOPIC (07/08/2006 10:56 AM CHIEF MEDICAL OFFICER) COLOR UA Yellow INTERFACE SYSTEM CLARITY UA [...] /HPF INTERFACE SYSTEM 07/08/2006 10:5 6 AM CHIEF MEDICAL OFFICER Aristeo Boyd MD URINE ORDERABLES Edited Performing Organization Address [facility] Phone Number INTERFACE SYSTEM Refer to clinic/hospital department * CBC WITH DIFFERENTIAL (07/08/2006 10:53 AM CHIEF MEDICAL OFFICER) NEUTROPHILS 63 45 - 70 % INTERFAC [...] K/uL INTERFACE SYSTEM 07/08/2006 10:5 3 AM CHIEF MEDICAL OFFICER Aristeo Boyd MD HEMATOLOGY ORDERABLES Edited Performing Organization Address [facility] Phone Number INTERFACE SYSTEM Refer to clinic/hospital department * (ABNORMAL) CBC WITH DIFFERENTIAL (07/08/2006 10:53 AM CHIEF MEDICAL OFFICER) WBC 10.0(H) 4.0 - 9.8 K/uL INTERFACE [...] fL INTERFACE SYSTEM 07/08/2006 10:5 3 AM CHIEF MEDICAL OFFICER Aristeo Boyd MD HEMATOLOGY ORDERABLES Edited Performing Organization Address City/[facility] Co de Phone Number INTERFACE SYSTEM Refer to clinic/hospital department * TSH WITH REFLEX FT4 AND FT3 (07/08/2006 10:53 AM CHIEF MEDICAL OFFICER) TSH 2.14 0.27 - 4.20 uU/mL INTERFACE SYSTEM 07/08/2006 10:5 3 AM CHIEF MEDICAL OFFICER Aristeo Boyd MD CHEMISTRY ORDERABLES Edited Performing Organization Address City/[facility]/ZIP Co de Phone Number INTERFACE SYSTEM Refer to clinic/hospital department * PSA (07/08/2006 10:53 AM CHIEF MEDICAL OFFICER) PSA 1.9 0.0 - 4.0 ng/mL INTERFACE SYSTEM Comment:Performed on Donita M odular E170 System 07/08/2006 10:5 3 AM CHIEF MEDICAL OFFICER Aristeo Boyd MD CHEMISTRY ORDERABLES Edited INTERFACE SYSTEM Refer to clinic/hospital department * (ABNORMAL) LIPID PANEL (07/08/2006 10:53 AM CHIEF MEDICAL OFFICER) CHOLESTEROL 204(H) 100 - 199 mg/dL INTERFACE SYSTEM TRIGLYCERIDE 225(H) 10 - 149 mg/dL INTERFACE SYSTEM HDL 48 40 - 59 mg/dL INTERFACE SYSTEM CHOL/HDL RATIO 4.3 2.0 - 5.0 INTER FACE SYSTEM LDL CALCULATED 111(H) <=99 mg/dL INTERFACE SYSTEM LIPID PANEL COMMENT See Below INTERFACE SYSTEM Comment: The adult ATP and pediatric NCEP classifications for lipids are available on the [facility] Intranet at: [email or web address]/sjmmclab.nsf Select: Lab Policies and Procedures Select: Reference Ranges - Lipids 07/08/2006 10:5 3 AM CHIEF MEDICAL OFFICER Aristeo Boyd MD CHEMISTRY ORDERABLES Edited INTERFACE SYSTEM Refer to clinic/hospital department * COMPREHENSIVE METABOLIC PANEL (07/08/2006 10:53 AM CHIEF MEDICAL OFFICER) GLUCOSE 90 65 - 99 mg/dL INTERFACE [...] and non- Americans is available on the [facility] Intranet at: [email or web address].[email or web address] Select: Lab Policies and Procedures Select: Reference Ranges - GFR 07/08/2006 10:5 3 AM CHIEF MEDICAL OFFICER us Aristeo Boyd MD CHEMISTRY ORDERABLES Edited INTERFACE SYSTEM Refer to clinic/hospital department documented in this encounter Visit Diagnoses Diagnosis Routine general medical examination at a health care facility- Primary documented in this encounter Care Teams Church History Professor Relationship Specialty Start Date End Date Jeremy Carreon MD [address] [place] [id number] PCP - General Internal Medicine 05/17/19 02/14/23 documented as of this encounter
--- OUTSIDE RECORDS SUMMARY | 2024-11-21 12:48 | XMS_ITS | Encounter Summary ---
Author Organization [employer] Address [address] [facility] [address] 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
--- OUTSIDE RECORDS SUMMARY | 2024-11-21 12:48 | XMS_ITS | Encounter Summary ---
Author Organization [facility] Address [address] [place] [address] Care Team Providers Care Legal Executive Assistant Name Role Phone Jeremy Carreon MD Primary Care Provider [phone] Encounter Details Date Type Department Care Team (Latest Contact Info) Description 12/10/2003 Outpatient Historical HIS [facility] SINAI Boyd, MD Aristeo [address] [facility] [address] [place] [address] HYPERTENSION NOS (Primary Dx) Social History Tobacco Use Types Packs/Day Years Used Date Smoking Tobacco: Never Assessed Sex and Gender Information Value Date Recorded Sex Assigned at Not on file Legal Sex Male 3:20 AM SAW BOSS Gender Identity Not on file Sexual Orientation Not on file documented as of this encounter Plan of Treatment Not on file documented as of this encounter Visit Diagnoses Diagnosis Unspecified essential hypertension- Primary documented in this encounter Care Teams Legal Executive Assistant Relationship Specialty Start Date End Date Jeremy [place] [address] PCP - General Internal Medicine 05/17/19 02/14/23 documented as of this encounter
--- OUTSIDE RECORDS SUMMARY | 2024-11-21 12:48 | XMS_ITS | Continuity of Care Document ---
Author Organization [facility] Address [address] [place] [address] [address] [place] [address] Phone Care Team Providers Care Garbage Collector Name Role Phone Carlos DICKINSON, Emy Unavailable [...] Providers Copied on Encounter [facility], [address] [place] [address] [address], [place], [place], [address], [place] tel:[phone] OPH CONSULT CAROL VALENTIN blurry vision (chief complaint) Cataract, nuclear sclerotic senile, bilateralEctrop ion of both eyes, unspecified ectropion type, unspecified eyelidVitreous degeneration of both eyes Mar-3 0- 1 Carlos Quevedo. [address], [address], [place], [place], [address] , [place]. tel:[phone] Referring Provider: Jeremy Carreon MD, [address], [place], [address]. tel:[phone] OFFICE/OUTPA TIENT VISIT, [facility], [address] [place] [address], [id number], [place] tel:[phone] OPH CONSULT CAROL VALENTIN dryness (chief complaint) Vitreous degeneration of both eyesCataract, nuclear sclerotic senile, bilateralEctrop ion of both eyes, unspecified ectropion type, unspecified eyelid October- 8 Gonzalezedmundo Quevedo. [address], [address], [place], [place], [address] , [place]. tel:[phone] Referring Provider: Emy Kingsley, [address], [place], [address]. tel:[phone] OFFICE/OUTPA TIENT VISIT, [facility], [address] [place] [address], [id number], [place] tel:[phone] OPH CONSULT CAROL VALENTIN blurry vision (chief complaint) Vitreous degeneration of both eyesCataract, nuclear sclerotic senile, bilateral Nov- 5 Carlos Quevedo. [address], [address], [place], [place], [address] , [place]. [phone] Referring Provider: Emy Kingsley, [address], [place], [address]. tel:[phone] OFFICE/OUTPA TIENT VISIT, [facility], [address] [place] [address], [id number], [place] tel:[phone] OPH CONSULT CAROL VALENTIN Senile nuclear sclerosisVitreo us degeneration 2 Roque Nick. [address], [address], [place], [place], [address] , [place]. tel:[phone] Family History Family Member Type Diagnosis Age At Onset Mother Problem (finding) glaucoma Payers Payer name Insurance type Covered constitution party ID Authoriza tion(s) [employer] HMO [id number] Social History Type Description Quantity Date Captured [...]
--- OUTSIDE RECORDS SUMMARY | 2024-11-21 12:49 | XMS_ITS | Clinical Summary ---
Author Organization [facility] Selina beaulieu [place] Address [address] [place] [address] Care Team Providers Care Hearing Care Professional Name Role Phone Unavailable Primary Care Provider [...] on file Legal Sex Male 3:20 AM PROJECTION CAMERA OPERATOR Gender Identity Not on file Sexual [...] Height 182.9 cm (6') 05/12/2021 2:31 PM PROJECTION CAMERA OPERATOR Body Mass Index 24.22 05/12/2021 2:31 PM PROJECTION CAMERA OPERATOR Plan of Treatment Health Maintenance Due Date Last Done Comments DTAP/TDAP/TD VACCINES (1 - Tdap) 1961 PNEUMOCOCCAL VACCINE 50+ YEA RS (1 of 1 - PCV) 1992 02/05/2012 ZOSTER VACCINE (1 of 2) 1992 RSV VACCINE (60+ or ) (1 - 1-dose 75+ series) 2017 INFLUENZA VACCINE (#1) 2024 04/06/2022, 2021 [place] [employer] [facility] [place] Address: [address] [id number]
--- OUTSIDE RECORDS SUMMARY | 2024-11-21 12:49 | XMS_ITS | Clinical Summary ---
Author Organization [facility] Address [address] [place] [address] Care Team Providers Care Prosthetics Lab Technician Name Role Phone Darren Butler DO Primary Care Provider [phone] Source Comments [facility],non-owned Affiliates and Associated Physician Practices is amultiple site organization consisting of ambulatory clinics and hospital sitesin [place], [place], [place] and [place]. This disclosure is being madepursuant to the Care Everywhere program and may not contain all information available regarding this patient. Last updated 18.[facility] Allergies Active Allergy Reactions Criticality Noted Date [...] Not very hard 07/05/2024 [facility] [place] [facility] Occup[facility] - Occupational Stress [...] any time in the past 12 m [facility], were you homeless or living in a fci (including now)? No 07/05/2024 Sex and Gender Information Value Date Recorded Sex Assigned at Not on file Legal Sex Male 4:32 AM DASHBOARD DEVELOPER Gender Identity Not on file Sexual Orientation Not on file Last Filed Vital Signs Vital Sign Reading Time Taken Comments Blood Pressure 129/91 07/10/2024 4:09 PM DASHBOARD DEVELOPER Pulse 81 07/10/2024 4:09 PM DASHBOARD DEVELOPER Temperature 36.8 C (98.2 F) 07/10/2024 4:09 PM DASHBOARD DEVELOPER Respiratory Rate 18 07/10/2024 4:09 PM DASHBOARD DEVELOPER Oxygen Saturation 95% 07/10/2024 4:09 PM DASHBOARD DEVELOPER Inhaled Oxygen Concentration - - Weight 72.5 kg (159 lb 13.3 oz) 07/10/2024 4:00 AM DASHBOARD DEVELOPER Height 177.8 cm (5' 10) 07/05/2024 8:22 PM DASHBOARD DEVELOPER Body Mass Index 22.93 07/05/2024 8:22 PM DASHBOARD DEVELOPER Plan of Treatment Health Maintenance Due Date [...] MEDICARE ADV HMO & PPO Care Teams Prosthetics Lab Technician Relationship Specialty Start Date End Date Darren Butler DO [address] [place] [id number] PCP - General Internal Medicine 07/05/24
[2024-11-21] MEDS: ACETAMINOPHEN 500 MG TABLET 1000 MG PO (14:55)
[2024-11-21 15:23] LABS: Anion Gap 6 mmol/L (4-12); Blood Urea Nitrogen 29 mg/dL (9-20); Calcium 8.2 mg/dL (8.4-10.2); Carbon Dioxide 24 mmol/L (22-30); Chloride 106 mmol/L (98-107); Estimated CRCL calculation 33 ml/min; Estimated Glomerular Filt Rate 40; Glucose 98 mg/dL (65-110); Potassium 5.2 mmol/L (3.4-5.0); Sodium 136 mmol/L (137-145)
[2024-11-21 16:37] LABS: Add Urine Microscopic? YES; Appearance Urine Cloudy (Clear); Bacteria Urine 2+ /hpf; Bilirubin Urine Negative (Negative); Blood Urine 2+ (Negative); Color Urine Yellow (Yellow); Glucose Urine UA Negative (Negative); Ketones Urine Negative (Negative); Leukocyte Esterase Ur 3+ LEU/UL (Negative); Nitrate Urine Positive (Negative); Non Pathogenic Casts 0-2; Protein Urine 1+ mg/dL (Negative); Specific Grav Ur 1.013 (1.001-1.035); Squamous Epithelial Cell Urine None Seen /hpf (Few); Urobilinogen Urine 0.2 mg/dL (<2.0); WBC Urine >100 /hpf (0-3)
[2024-11-21] MEDS: PIPERACILLN/TAZ 3.375GM/NS50ML 3.375 GM/50 ML BAG IVPB (17:24)
[2024-11-21] MEDS: SODIUM CHLORIDE 0.9% IV 1,000 ML 125 ML IV CONT (17:53)
--- NOTE | 2024-11-21 19:00 | ADMGEN ---
This patient, Crow Smith III, was admitted to [facility] Surg Room 323-02. Patient/family oriented to hospital policies and general routines including ID bracelet, bed and alarms, visiting hours, pain management, procedures, bathroom and other care routines, personal items, smoking policy, room service/diet, and visiting hours. Information on how to activate the Rapid Response Team has been discussed. Patient/Family are encouraged to report perceived risks to care and to ask questions if they do not understand what they are told or what they should do.
--- NOTE | 2024-11-21 21:18 | PM.IMHP ---
H&P: HPI History of Present Illness Date/Time: 11/21/24 21:18 Chief Complaint: Near-syncope on the toilet Narrative: 84-year-old male with past medical history of dementia, essential hypertension, essential tremor, BPH with multiple past episodes of urinary outlet obstruction from BPH who presented to the ER from [facility] due to near syncopal episode while on the toilet. EMS reported the patient was hypotensive on arrival. The patient had reported headache at the time of arrival to the ER but denies any pain at the time of my evaluation he. He is alert oriented x2 at baseline. The patient denied having head is head. Patient did receive 400 mL of normal saline in route to the hospital on blood pressures had normalized by the time he arrived to the hospital. CT of brain was negative for acute process. Chest x-ray dm left basilar atelectasis versus pneumonia. Patient denies any respiratory symptoms or chest pain. Patient denied any urinary symptoms or abdominal discomfort. However given acute kidney injury and history of prior urinary retention did ask nursing staff to check postvoid residual. The patient had greater than 900 noted on bladder scan after having voided 150 mL. Subsequently Iavn catheter was placed which had return of approximately 600 mL of urine. Labs in the ER demonstrated acute kidney injury with mild hyperkalemia. UA was suggestive of UTI. His prior UTI in September grew out E coli with resistance to Rocephin Cipro and Levaquin. He was subsequently started on Zosyn renally dosed. He did receive 2 L fluid bolus in the ER was started on maintenance fluids. The patient's only complaint at the time my evaluation was that he wanted to sit up and move around. He stated he wanted to get out of bed and walk. He reports chronic hip pain that is unchanged from baseline. Review of Systems Review of Systems: Review of systems was attempted but limited due to patient's history of dementia. The patient's only complaint PMFSH Past Medical History Medical History (Updated 11/21/24 @ 23:19 by Candi Gracia DO) Dementia Chronic subdural hematoma 1st noted on CT scan June 2024 Hypovitaminosis D Basal cell carcinoma of skin Chronic back pain Obstructive sleep apnea CPAP of 8 recommended on polysomnogram 2019 Neuropathy Dyslipidemia Left ventricular diastolic dysfunction, NYHA class 1 Grade 1 diastolic dysfunction with EF of 66 by% noted on echocardiogram from 2018 Essential hypertension Surgical History Surgical History History of colonoscopy with polypectomy Multiple events with the most recent May 2017 History of hip surgery (08/14/24) Percutaneous pinning right hip fracture by Dr. 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 He reports that he has been since 2020. He has lived in [facility] since 2020. He reports that he briefly smoked when he was young but according to a prior H&P from 2010 he was smoking half a pack of cigarettes per day at that time. He used to occasionally drink alcohol in moderation but had not done so in many years. He denies history of illicit substance use. Code status: DNR/DNI with IDPA form on chart Healthcare [facility]: [facility] who lives in [place]. Smoking packs per day: 0.5 Smoking cigarettes per day: 10.0 Years smoked: 2 Smoking pack-years: 1.00 Smoking status: Former smoker Tobacco type: cigarettes Second hand tobacco smoke exposure: No Smoking end date: 06/06/1960 Alcohol intake: former Drinks per week: 1 Alcohol use details: a glass a wine Substance use: never Substance use type: does not use Do You Feel Safe in your Home?: Yes Lack of Transportation: No Lack of Food: Never True Current Housing: I Have Housing Concerned About Future Housing: No Difficulty Paying Gas/Electric Bills: No Difficulty Paying for Meds: No Currently Unemployed: No Education: Master's Degree or Higher Difficulty w/ Childcare or Family Care: No Living arrangements: assisted living Additional living arrangements comments: . Lives at [facility]. Occupation/Education: retired Additional occupation/education comments: [employer] Spiritual care concerns: No Agree to blood products: Yes Meds Home Medications and Allergies Home Medications ?Medication ?Instructions ?Recorded ?Confirmed ?Type cholecalciferol (vitamin D3) 50 50 mcg PO DAILY 05/23/20 11/21/24 History mcg (2,000 unit) capsule zinc 50 mg tablet 50 mg PO DAILY 05/23/20 11/21/24 History finasteride 5 mg tablet (Proscar) 5 mg PO QAM #90 tabs 02/26/22 11/21/24 Rx gabapentin 100 mg capsule 100 mg PO BID #60 caps 05/07/24 11/21/24 Rx ascorbic acid (vitamin C) 500 mg 500 mg PO DAILY 08/14/24 11/21/24 History tablet (Vitamin C) donepezil 5 mg tablet 5 mg PO HS 08/14/24 11/21/24 History fluoxetine 10 mg capsule 10 mg PO QAM 08/14/24 11/21/24 History irbesartan 300 mg tablet 300 mg PO DAILY 08/14/24 11/21/24 History naproxen sodium 220 mg tablet 220 mg PO DAILY 08/14/24 11/21/24 History polyethylene glycol 3350 17 17 g PO .Q daily PRN constipation 08/14/24 11/21/24 History gram/dose oral powder primidone 50 mg tablet 12.5 mg PO HS 08/14/24 11/21/24 History furosemide 20 mg tablet 20 mg PO DAILY 09/28/24 11/21/24 History potassium chloride 20 mEq 20 meq PO DAILY 09/28/24 11/21/24 History tablet,extended release(part/cryst) tamsulosin 0.4 mg capsule See Rx Instructions .Route .COMPLEX 11/21/24 11/21/24 History Allergies Allergy/AdvReac Type Severity Reaction Status Date / Time amlodipine Allergy Intermediate HIVES, Verified 08/14/24 10:49 ITCHING hydrochlorothiazide Allergy Unknown RASH & Verified 08/14/24 10:49 ITCHING valsartan Allergy Unknown Hives Verified 08/14/24 10:49 Vital Signs Vital Signs - 24 hr 11/21/24 10:21 11/21/24 10:58 11/21/24 15:51 Temperature 97.9 F 98.0 F 98.8 F Pulse Rate 65 66 78 Respiratory Rate 18 12 16 Blood Pressure 102/69 102/57 L 132/60 Pulse Oximetry 94 97 99 Oxygen Delivery Room Air 11/21/24 17:25 11/21/24 19:00 Temperature 98.2 F 98.0 F Pulse Rate 72 71 Respiratory Rate 16 18 Blood Pressure 119/80 137/93 H Pulse Oximetry 98 98 Oxygen Delivery Exam Narrative: Weight 74.1 kg BMI 22.8 H&P: Results Labs Labs: Laboratory Tests 11/21/24 10:59 11/21/24 15:02 11/21/24 11/21/24 11/21/24 10:59 15:02 16:26 WBC 6.0 RBC 3.96 L Hgb 11.4 L Hct 35.5 L MCV 89.6 MCH 28.8 MCHC 32.1 RDW 15.3 H Plt Count 118 L MPV 9.9 Immature Gran % (Auto) 0.5 Neut % (Auto) 69.0 Lymph % (Auto) 18.1 L Town[place] % (Auto) 8.6 H Eos % (Auto) 3.0 Baso % (Auto) 0.8 Lymph # (Auto) 1.08 Towner # (Auto) 0.5 Eos # (Auto) 0.2 Baso # (Auto) 0.1 Abs Immat Gran (auto) 0.03 Absolute Neuts (auto) 4.1 Absolute Nucleated RBC 0.000 Nucleated RBC % 0.0 PT 15.1 H INR 1.2 APTT 27.4 Sodium 135 L 136 L Potassium 4.6 5.2 H Chloride 106 106 Carbon Dioxide 23 24 Anion Gap 6 6 BUN 29 H 29 H Creatinine 1.69 H 1.65 H Estim Creat Clear Calc 32 33 Estimated GFR 39 L 40 L Glucose 105 98 Calcium 8.2 L 8.2 L Total Bilirubin 0.5 AST 16 L ALT 9 Alkaline Phosphatase 82 Total Protein 5.6 L Albumin 3.3 L Urine Color Yellow Urine Appearance Cloudy H Urine pH 6.0 Ur Specific [place] 1.013 Urine Protein 1+ H Urine Glucose (UA) Negative Urine Ketones Negative Ur Blood (Man) 2+ H Urine Nitrate Positive H Urine Bilirubin Negative Urine Urobilinogen 0.2 Leukocyte Esterase Rfl 3+ H Urine RBC 6-10 H Urine WBC >100 H Ur Squamous Epith Cells None seen Urine Bacteria 2+ H Urine Casts 0-2 Impressions Chest X-Ray 11/21/24 11:40 IMPRESSION: Left basilar atelectasis versus pneumonia. Head CT 11/21/24 11:47 IMPRESSION: Bilateral chronic subdural hematomas measuring 8 mm on the left and 9 mm on the right. Follow-up advised. Dr. Monroy was notified with the result of the patient at 11:58 AM on December 22, 2024 EKG:Test Date: 2024-11-21 10:45:04 Measurements Intervals [place] Rate: 66 P: -7 GA: 193 QRS: -33 QRSD: 90 T: 31 QT: 369 QTc: 388 Interpretive Statements SINUS RHYTHM LEFT AXIS DEVIATION LOW QRS VOLTAGE IN PRECORDIAL LEADS POSSIBLE ANTERIOR MYOCARDIAL INFARCTION , PROBABLY OLD CONSIDER INFERIOR INFARCT, AGE INDETERMINATE BASELINE ARTIFACT- I, II, III, AVR, AVL, AVF, V1-V6 ABNORMAL ECG Compared to ECG 09/28/2024 16:23:23 HEART RATE HAS INCREASED All imaging and EKGs personally reviewed and interpreted. And unless stated otherwise agree with radiologic and cardiology interpretation. Assessment and Plan Assessment and plan (1) ROBERT (acute kidney injury): Code(s): N17.9 - Acute kidney failure, unspecified Status: Acute (2) Acute UTI: Code(s): N39.0 - Urinary tract infection, site not specified Status: Acute (3) Urinary retention due to benign prostatic hyperplasia: Code(s): N40.1 - Benign prostatic hyperplasia with lower urinary tract symptoms; R33.8 - Other retention of urine Status: Acute (4) Benign prostatic hyperplasia: Qualifiers: Lower urinary tract symptom detail: urinary retention Lower urinary tract symptom presence: symptoms present Qualified Code(s): N40.1 - Benign prostatic hyperplasia with lower urinary tract symptoms; R33.8 - Other retention of urine Code(s): N40.0 - Benign prostatic hyperplasia without lower urinary tract symptoms Status: Acute (5) Acute hyperkalemia: Code(s): E87.5 - Hyperkalemia Status: Acute (6) Chronic subdural hematoma: Code(s): I62.03 - Nontraumatic chronic subdural hemorrhage Status: Acute (7) Seizures: Code(s): R56.9 - Unspecified convulsions Status: Acute (8) Dementia: Qualifiers: Dementia behavioral or psychological symptom: without behavioral, psychotic, or mood disturbance or anxiety Dementia severity: moderate Dementia type: unspecified type Qualified Code(s): F03.B0 - Unspecified dementia, moderate, without behavioral disturbance, psychotic disturbance, mood disturbance, and anxiety Code(s): F03.90 - Unspecified dementia, unspecified severity, without behavioral disturbance, psychotic disturbance, mood disturbance, and anxiety Status: Acute
[2024-11-21] MEDS: GABAPENTIN 100 MG CAPSULE PO (23:19)
[2024-11-21] MEDS: LIDOCAINE 2% GEL UROJET 10 ML PKG MUCOUS MEM (23:19)
[2024-11-21] MEDS: PRIMIDONE 12.5 MG TABLET PO (23:19)
[2024-11-21] MEDS: TAMSULOSIN HCL 0.4 MG CAPSULE PO (23:19)
[2024-11-22] MEDS: PIPERACILLIN/TAZ 2.25G/NS 50ML 2.25 GM/50 ML BAG IVPB ×3 (00:28→12:39)
[2024-11-22 01:20] VITALS: O2SAT 98
[2024-11-22 01:30] VITALS: PULSE 83; RESP 14; O2SAT 98
[2024-11-22] MEDS: SODIUM CHLORIDE 0.9% IV 1,000 ML 125 ML IV CONT ×3 (02:20→19:27)
[2024-11-22 06:00] VITALS: BP 104/61; PULSE 80; RESP 18; TEMP 36.9; O2SAT 96
[2024-11-22 06:14] LABS: Hematocrit 32.9 % (42.0-52.0); Hemoglobin 10.5 g/dL (14.0-18.0); Mean Corpuscular HGB Conc 31.9 g/dl (32-36); Mean Corpuscular Hemoglobin 28.8 pg (26-34); Mean Corpuscular Volume 90.1 fl (80-100); Mean Platelet Volume 9.9 fl (7.4-10.4); Platelet Count Result 118 k/mm3 (150-375); Red Blood Count 3.65 M/mm3 (4.6-6.20); Red Cell Distribution Width 15.2 % (11.5-14.5); White Blood Count 5.4 K/mm3 (4.5-10.0)
[2024-11-22 06:27] LABS: Albumin Level 2.8 g/dL (3.5-5.1); Anion Gap 6 mmol/L (4-12); Blood Urea Nitrogen 23 mg/dL (9-20); Calcium 7.8 mg/dL (8.4-10.2); Carbon Dioxide 20 mmol/L (22-30); Chloride 110 mmol/L (98-107); Estimated CRCL calculation 38 ml/min; Estimated Glomerular Filt Rate 48; Glucose 81 mg/dL (65-110); Phosphorus 3.7 mg/dL (2.5-4.5); Potassium 4.4 mmol/L (3.4-5.0); Sodium 136 mmol/L (137-145)
[2024-11-22] MEDS: FINASTERIDE 5 MG TABLET PO (09:57)
[2024-11-22] MEDS: CHOLECALCIFEROL (VITAMIN D3) 25 MCG (1,000 UNITS) TABLET 50 MCG PO (09:57)
[2024-11-22] MEDS: FLUoxetine HCL 10 MG CAPSULE PO (09:57)
[2024-11-22] MEDS: GABAPENTIN 100 MG CAPSULE PO ×2 (09:57→20:48)
--- NOTE | 2024-11-22 13:34 | PM.IMPN ---
Progress Note: A&P Assessment and Plan (1) ROBERT (acute kidney injury): Code(s): N17.9 - Acute kidney failure, unspecified Status: Acute (2) Acute UTI: Code(s): N39.0 - Urinary tract infection, site not specified Status: Acute (3) Urinary retention due to benign prostatic hyperplasia: Code(s): N40.1 - Benign prostatic hyperplasia with lower urinary tract symptoms; R33.8 - Other retention of urine Status: Acute (4) Benign prostatic hyperplasia: Qualifiers: Lower urinary tract symptom detail: urinary retention Lower urinary tract symptom presence: symptoms present Qualified Code(s): N40.1 - Benign prostatic hyperplasia with lower urinary tract symptoms; R33.8 - Other retention of urine Code(s): N40.0 - Benign prostatic hyperplasia without lower urinary tract symptoms Status: Acute (5) Acute hyperkalemia: Code(s): E87.5 - Hyperkalemia Status: Acute (6) Chronic subdural hematoma: Code(s): I62.03 - Nontraumatic chronic subdural hemorrhage Status: Acute (7) Seizures: Code(s): R56.9 - Unspecified convulsions Status: Acute (8) Dementia: Qualifiers: Dementia behavioral or psychological symptom: without behavioral, psychotic, or mood disturbance or anxiety Dementia severity: moderate Dementia type: unspecified type Qualified Code(s): F03.B0 - Unspecified dementia, moderate, without behavioral disturbance, psychotic disturbance, mood disturbance, and anxiety Code(s): F03.90 - Unspecified dementia, unspecified severity, without behavioral disturbance, psychotic disturbance, mood disturbance, and anxiety Status: Acute Plan 84-year-old pain injury with possible syncopal episode rate is assisted living facility while going to the bathroom. He initially presented on 11/20/2024 with this fall. His vitals were stable CT head and C-spine was performed which showed no acute abnormality and was discharged back to the facility. He presented back again for unclear reason. EMS reports patient was hypotensive on arrival. He is alert and oriented x2 at baseline In the ED evaluation his vitals were stable. Laboratory data showed WBC of 6 hemoglobin of 11.4 platelet 118. Chem panel shows sodium of 136 potassium 5.2 bicarb 24 BUN of 29 creatinine 1.65 blood glucose of 98. LFTs were normal. Urinalysis showed more than 100 WBC 6-10 RBC with positive nitrate and leukocyte esterase. EKG showed sinus rhythm with nonspecific ST-T changes. His baseline creatinine around 1. Repeat head CT shows bilateral chronic subdural hematomas measuring 8 mm on the left and 9 mm on the right. Chest x-ray showed left basilar atelectasis versus pneumonia. He got IV fluid in the ER. Rehab history of urinary retention and hence a bladder scan was performed which showed 900 cc post residual. Ivan catheter was placed in the ER with return of approximately 600 mL of urine. He has been started on IV Zosyn in the ER and admitted for further treatment. Recurrent falls Near syncopal episode ROBERT with creatinine 1.6 received IV fluid. Creatinine continues to improve UTI prior urine culture with E coli ESBL currently on Zosyn. will switch to meropenem. Will check blood culture x2 Urinary retention needing Ivan catheter placement in the ER History of BPH with urine retention on finasteride and tamsulosin. Bilateral chronic subdural hematoma Dementia Chronic back pain CLAUDIO on CPAP Dyslipidemia Diastolic dysfunction Hypertension Neuropathy DVT prophylaxis SCDs Code status do not resuscitate Subjective Date/time seen: 11/22/24 13:34 Interval history: Chart reviewed. Have possible syncopal episode at the facility. Has underlying dementia and recurrent falls. Denies any new complaints today. Remains confused. Review of Systems Review of Systems: All systems reviewed & are unremarkable except as noted in HPI and below Exam Narrative: GENERAL: Chronically ill-appearing, well-nourished, and in no acute distress. HEAD: Normocephalic, atraumatic. EYES: PERRL and EOMI. ENT: Mucous membranes moist. CHEST: Diminished breath sounds bilaterally. No respiratory distress. HEART: Regular rate and rhythm. Normal peripheral pulses. ABDOMEN: Soft, nontender, nondistended. EXTREMITIES: Normal range of motion. No edema. SKIN: Warm, dry, no rash. NEURO: Alert and oriented x2. PSYCH: Normal mood and affect. Objective Data Vital Signs Vital Signs: Vital Signs - 24 hr 11/21/24 15:51 11/21/24 17:25 11/21/24 19:00 Temperature 98.8 F 98.2 F 98.0 F Pulse Rate 78 72 71 Respiratory Rate 16 16 18 Blood Pressure 132/60 119/80 137/93 H Pulse Oximetry 99 98 98 Oxygen Delivery Fraction of Inspired Oxygen 11/21/24 21:00 11/21/24 21:54 11/22/24 01:20 Temperature 98.0 F Pulse Rate 86 Respiratory Rate 20 Blood Pressure 130/64 Pulse Oximetry 100 98 Oxygen Delivery Room Air CPAP Fraction of Inspired Oxygen 21 11/22/24 01:30 11/22/24 06:00 Temperature 98.4 F Pulse Rate 83 80 Respiratory Rate 14 18 Blood Pressure 104/61 Pulse Oximetry 98 96 Oxygen Delivery Autopap Fraction of Inspired Oxygen Intake/Output Intake/Output: Intake & Output 11/19/24 11/20/24 11/21/24 11/22/24 23:59 23:59 23:59 23:59 Intake Total 2050 2392.9 Output Total 975 900 Balance 1075 1492.9 Meds/Results Medications: Active Medications Generic Name Dose Route Start Last Admin Trade Name Freq PRN Reason Stop Dose Admin Acetaminophen 650 mg 11/21/24 17:43 Acetaminophen 325 Mg Tablet PO Q4H PRN Mild Pain (1-3) or Fever Hydrocodone Bitart/Acetaminophen 1 tab 11/21/24 17:43 Hydrocodone/Acetaminophen (*Crx) 5-325 Mg Tablet PO Q4H PRN Pain Rated 4-6 Finasteride 5 mg 11/22/24 09:00 11/22/24 09:57 Finasteride 5 Mg Tablet PO 5 mg QAM KAY Administration Fluoxetine HCl 10 mg 11/22/24 09:00 11/22/24 09:57 Fluoxetine Hcl 10 Mg Capsule PO 10 mg QAM KAY Administration Gabapentin 100 mg 11/21/24 22:20 11/22/24 09:57 Gabapentin 100 Mg Capsule PO 100 mg Q12HR KAY Administration Sodium Chloride 1,000 mls @ 125 mls/hr 11/21/24 17:45 11/22/24 10:07 Normal Saline Iv IV CONT 125 mls/hr .Q8H KAY Administration Piperacillin Sod/Tazobactam Sod 2.25 gm in 50 mls @ 100 mls/hr 11/22/24 00:00 11/22/24 12:39 Zosyn 2.25 Gm/Ns 50 Ml IVPB 100 mls/hr Q6HR KAY Administration Ondansetron HCl 4 mg 11/21/24 17:43 Ondansetron Inj 4 Mg/2 Ml Vial IV PUSH Q4H PRN Nausea Polyethylene Glycol 17 gm 11/21/24 22:13 Polyethylene Glycol 3350 17 Gm Powd.Pack PO DAILY PRN constipation Primidone 12.5 mg 11/21/24 22:20 11/21/24 23:19 Primidone 12.5 Mg Tablet PO 12.5 mg HS KAY Administration Tamsulosin HCl 0.4 mg 11/21/24 22:15 11/21/24 23:19 Tamsulosin Hcl 0.4 Mg Capsule PO 0.4 mg HS KAY Administration Vitamin D 50 mcg 11/22/24 09:00 11/22/24 09:57 Cholecalciferol (Vitamin D3) 25 Mcg (1,000 Units) Tablet PO 50 mcg DAILY KAY Administration Radiology Results: ITS Impressions Chest X-Ray 11/21/24 11:40 IMPRESSION: Left basilar atelectasis versus pneumonia. Head CT 11/21/24 11:47 IMPRESSION: Bilateral chronic subdural hematomas measuring 8 mm on the left and 9 mm on the right. Follow-up advised. Dr. Monroy was notified with the result of the patient at 11:58 AM on December 22, 2024 Labs Labs: Laboratory Results - last 24 hr 11/21/24 11/21/24 11/22/24 15:02 16:26 05:53 WBC 5.4 RBC 3.65 L Hgb 10.5 L Hct 32.9 L MCV 90.1 MCH 28.8 MCHC 31.9 L RDW 15.2 H Plt Count 118 L MPV 9.9 Sodium 136 L 136 L Potassium 5.2 H 4.4 Chloride 106 110 H Carbon Dioxide 24 20 L Anion Gap 6 6 BUN 29 H 23 H Creatinine 1.65 H 1.42 H Estim Creat Clear Calc 33 38 Estimated GFR 40 L 48 L Glucose 98 81 Calcium 8.2 L 7.8 L Phosphorus 3.7 Albumin 2.8 L Urine Color Yellow Urine Appearance Cloudy H Urine pH 6.0 Ur Specific [place] 1.013 Urine Protein 1+ H Urine Glucose (UA) Negative Urine Ketones Negative Ur Blood (Man) 2+ H Urine Nitrate Positive H Urine Bilirubin Negative Urine Urobilinogen 0.2 Leukocyte Esterase Rfl 3+ H Urine RBC 6-10 H Urine WBC >100 H Ur Squamous Epith Cells None seen Urine Bacteria 2+ H Urine Casts 0-2
[2024-11-22 14:00] VITALS: BP 115/55; PULSE 70; RESP 18; TEMP 36.1; O2SAT 97
[2024-11-22] MEDS: MEROPENEM 1 GM/NS 100 ML 1 GM/100 ML BAG IVPB (15:57)
[2024-11-22] MEDS: TAMSULOSIN HCL 0.4 MG CAPSULE PO (20:48)
[2024-11-22] MEDS: PRIMIDONE 12.5 MG TABLET PO (20:49)
[2024-11-22 22:00] VITALS: BP 138/82; PULSE 62; RESP 16; TEMP 36.8; O2SAT 96
[2024-11-23] MEDS: MEROPENEM 1 GM/NS 100 ML 1 GM/100 ML BAG IVPB (03:29)
[2024-11-23] MEDS: SODIUM CHLORIDE 0.9% IV 1,000 ML 125 ML IV CONT ×2 (03:45→16:24)
[2024-11-23 04:22] VITALS: BP 140/75; PULSE 75; RESP 16; TEMP 36.5; O2SAT 97
[2024-11-23 06:49] LABS: Basophils Absolute Auto 0.1 K/mm3 (0.0-0.1); Basophils Percent Auto 1.1 % (0.2-1.2); Eosinophils Absolute Auto 0.2 K/mm3 (0-0.3); Eosinophils Percent Auto 4.1 % (0-4.4); Hematocrit 33.9 % (42.0-52.0); Hemoglobin 10.9 g/dL (14.0-18.0); Immature Granulocyte Absolute 0.02 K/mm3 (0.00-0.031); Immature Granulocyte Percent A 0.4 % (0-0.5); Lymphocytes Absolute Auto 1.43 K/mm3 (0.9-3.2); Lymphocytes Percent Auto 25.3 % (18.3-44.2); Mean Corpuscular HGB Conc 32.2 g/dl (32-36); Mean Corpuscular Hemoglobin 28.6 pg (26-34); Mean Platelet Volume 9.7 fl (7.4-10.4); Monocytes Absolute Auto 0.4 K/mm3 (0.1-0.6); Monocytes Percent Auto 6.4 % (2.6-8.5); Neutrophils Absolute Auto 3.6 K/mm3 (1.3-6.7); Neutrophils Percent Auto 62.7 % (45.5-73.1); Platelet Count Result 106 k/mm3 (150-375); Red Blood Count 3.81 M/mm3 (4.6-6.20); Red Cell Distribution Width 14.9 % (11.5-14.5); White Blood Count 5.7 K/mm3 (4.5-10.0)
[2024-11-23 07:16] LABS: Alanine Aminotransferase 8 U/L (6-50); Albumin Level 2.9 g/dL (3.5-5.1); Alkaline Phosphatase 79 U/L (38-126); Anion Gap 5 mmol/L (4-12); Aspartate Amino Transferase 20 U/L (17-59); Bilirubin,Total 0.6 mg/dL (0.2-1.3); Blood Urea Nitrogen 20 mg/dL (9-20); Calcium 7.9 mg/dL (8.4-10.2); Carbon Dioxide 19 mmol/L (22-30); Chloride 111 mmol/L (98-107); Estimated CRCL calculation 48 ml/min; Estimated Glomerular Filt Rate > 60; Glucose 83 mg/dL (65-110); Magnesium 1.9 mg/dL (1.6-2.3); Potassium 4.2 mmol/L (3.4-5.0); Sodium 135 mmol/L (137-145); Total Protein 5.2 g/dL (6.3-8.2)
[2024-11-23] MEDS: GABAPENTIN 100 MG CAPSULE PO ×2 (09:46→21:50)
[2024-11-23] MEDS: CHOLECALCIFEROL (VITAMIN D3) 25 MCG (1,000 UNITS) TABLET 50 MCG PO (09:46)
[2024-11-23] MEDS: FLUoxetine HCL 10 MG CAPSULE PO (09:46)
[2024-11-23] MEDS: FINASTERIDE 5 MG TABLET PO (09:46)
--- NOTE | 2024-11-23 11:18 | PM.IMPN ---
Progress Note: A&P Assessment and Plan (1) ROBERT (acute kidney injury): Code(s): N17.9 - Acute kidney failure, unspecified Status: Acute Assessment and Plan: Will hydrate and monitor (2) Acute UTI: Code(s): N39.0 - Urinary tract infection, site not specified Status: Acute Assessment and Plan: Continue with IV antibiotics. Monitor culture. (3) Urinary retention due to benign prostatic hyperplasia: Code(s): N40.1 - Benign prostatic hyperplasia with lower urinary tract symptoms; R33.8 - Other retention of urine Status: Acute Assessment and Plan: Stable on current meds (4) Benign prostatic hyperplasia: Qualifiers: Lower urinary tract symptom presence: symptoms present Lower urinary tract symptom detail: urinary retention Qualified Code(s): N40.1 - Benign prostatic hyperplasia with lower urinary tract symptoms; R33.8 - Other retention of urine Code(s): N40.0 - Benign prostatic hyperplasia without lower urinary tract symptoms Status: Acute Assessment and Plan: Stable on current meds (5) Acute hyperkalemia: Code(s): E87.5 - Hyperkalemia Status: Acute Assessment and Plan: Resolved (6) Chronic subdural hematoma: Code(s): I62.03 - Nontraumatic chronic subdural hemorrhage Status: Acute Assessment and Plan: Stable (7) Seizures: Code(s): R56.9 - Unspecified convulsions Status: Acute Assessment and Plan: Continue current treatment and monitor closely (8) Dementia: Qualifiers: Dementia type: unspecified type Dementia severity: moderate Dementia behavioral or psychological symptom: without behavioral, psychotic, or mood disturbance or anxiety Qualified Code(s): F03.B0 - Unspecified dementia, moderate, without behavioral disturbance, psychotic disturbance, mood disturbance, and anxiety Code(s): F03.90 - Unspecified dementia, unspecified severity, without behavioral disturbance, psychotic disturbance, mood disturbance, and anxiety Status: Acute Assessment and Plan: Continue current treatment and monitor closely Plan 84-year-old pain injury with possible syncopal episode rate is assisted living facility while going to the bathroom. He initially presented on 11/20/2024 with this fall. His vitals were stable CT head and C-spine was performed which showed no acute abnormality and was discharged back to the facility. He presented back again for unclear reason. EMS reports patient was hypotensive on arrival. He is alert and oriented x2 at baseline In the ED evaluation his vitals were stable. Laboratory data showed WBC of 6 hemoglobin of 11.4 platelet 118. Chem panel shows sodium of 136 potassium 5.2 bicarb 24 BUN of 29 creatinine 1.65 blood glucose of 98. LFTs were normal. Urinalysis showed more than 100 WBC 6-10 RBC with positive nitrate and leukocyte esterase. EKG showed sinus rhythm with nonspecific ST-T changes. His baseline creatinine around 1. Repeat head CT shows bilateral chronic subdural hematomas measuring 8 mm on the left and 9 mm on the right. Chest x-ray showed left basilar atelectasis versus pneumonia. He got IV fluid in the ER. Rehab history of urinary retention and hence a bladder scan was performed which showed 900 cc post residual. Ivan catheter was placed in the ER with return of approximately 600 mL of urine. He has been started on IV Zosyn in the ER and admitted for further treatment. Recurrent falls Near syncopal episode ROBERT with creatinine 1.6 received IV fluid. Creatinine continues to improve UTI prior urine culture with E coli ESBL currently on Zosyn. will switch to meropenem. Will check blood culture x2 Urinary retention needing Ivan catheter placement in the ER History of BPH with urine retention on finasteride and tamsulosin. Bilateral chronic subdural hematoma Dementia Chronic back pain CLAUDIO on CPAP Dyslipidemia Diastolic dysfunction Hypertension Neuropathy DVT prophylaxis SCDs Code status do not resuscitate Subjective Date/time seen: 11/23/24 11:18 Interval history: Patient was seen during the morning rounds today. No new overnight complaints. Review of Systems Review of Systems: Review of systems was attempted but limited due to patient's history of dementia. The patient's only complaint All systems reviewed & are unremarkable except as noted in HPI and below Exam Narrative: GENERAL: Chronically ill-appearing, well-nourished, and in no acute distress. HEAD: Normocephalic, atraumatic. EYES: PERRL and EOMI. ENT: Mucous membranes moist. CHEST: Diminished breath sounds bilaterally. No respiratory distress. HEART: Regular rate and rhythm. Normal peripheral pulses. ABDOMEN: Soft, nontender, nondistended. EXTREMITIES: Normal range of motion. No edema. SKIN: Warm, dry, no rash. NEURO: Alert and oriented x2. PSYCH: Normal mood and affect. Objective Data Vital Signs Vital Signs: Vital Signs - 24 hr 11/22/24 14:00 11/22/24 22:00 11/23/24 04:22 Temperature 36.1 C L 36.8 C 36.5 C Pulse Rate 70 62 75 Respiratory Rate 18 16 16 Blood Pressure 115/55 L 138/82 140/75 Pulse Oximetry 97 96 97 Oxygen Delivery 11/23/24 08:00 11/23/24 09:49 11/23/24 10:00 Temperature Pulse Rate Respiratory Rate Blood Pressure Pulse Oximetry Oxygen Delivery Room Air Room Air Room Air Intake/Output Intake/Output: Intake & Output 11/20/24 11/21/24 11/22/24 11/23/24 23:59 23:59 23:59 23:59 Intake Total 2050 3862.9 1240 Output Total 975 2650 1200 Balance 1075 1212.9 40 Meds/Results Medications: Active Medications Generic Name Dose Route Start Last Admin Trade Name Freq PRN Reason Stop Dose Admin Acetaminophen 650 mg 11/21/24 17:43 Acetaminophen 325 Mg Tablet PO Q4H PRN Mild Pain (1-3) or Fever Hydrocodone Bitart/Acetaminophen 1 tab 11/21/24 17:43 Hydrocodone/Acetaminophen (*Crx) 5-325 Mg Tablet PO Q4H PRN Pain Rated 4-6 Finasteride 5 mg 11/22/24 09:00 11/23/24 09:46 Finasteride 5 Mg Tablet PO 5 mg QAM KAY Administration Fluoxetine HCl 10 mg 11/22/24 09:00 11/23/24 09:46 Fluoxetine Hcl 10 Mg Capsule PO 10 mg QAM KAY Administration Gabapentin 100 mg 11/21/24 22:20 11/23/24 09:46 Gabapentin 100 Mg Capsule PO 100 mg Q12HR KAY Administration Sodium Chloride 1,000 mls @ 125 mls/hr 11/21/24 17:45 11/23/24 09:47 Normal Saline Iv IV CONT Not Given .Q8H KAY Meropenem 1 gm in 100 mls @ 200 mls/hr 11/22/24 15:00 11/23/24 03:29 IVPB 200 mls/hr Q12H KAY Administration Ondansetron HCl 4 mg 11/21/24 17:43 Ondansetron Inj 4 Mg/2 Ml Vial IV PUSH Q4H PRN Nausea Polyethylene Glycol 17 gm 11/21/24 22:13 Polyethylene Glycol 3350 17 Gm Powd.Pack PO DAILY PRN constipation Primidone 12.5 mg 11/21/24 22:20 11/22/24 20:49 Primidone 12.5 Mg Tablet PO 12.5 mg HS KAY Administration Tamsulosin HCl 0.4 mg 11/21/24 22:15 11/22/24 20:48 Tamsulosin Hcl 0.4 Mg Capsule PO 0.4 mg HS KAY Administration Vitamin D 50 mcg 11/22/24 09:00 11/23/24 09:46 Cholecalciferol (Vitamin D3) 25 Mcg (1,000 Units) Tablet PO 50 mcg DAILY KAY Administration Radiology Results: ITS Impressions Chest X-Ray 11/21/24 11:40 IMPRESSION: Left basilar atelectasis versus pneumonia. Head CT 11/21/24 11:47 IMPRESSION: Bilateral chronic subdural hematomas measuring 8 mm on the left and 9 mm on the right. Follow-up advised. Dr. Monroy was notified with the result of the patient at 11:58 AM on December 22, 2024 Labs Labs: Laboratory Results - last 24 hr 11/23/24 06:31 WBC 5.7 RBC 3.81 L Hgb 10.9 L Hct 33.9 L MCV 89.0 MCH 28.6 MCHC 32.2 RDW 14.9 H Plt Count 106 L MPV 9.7 Immature Gran % (Auto) 0.4 Neut % (Auto) 62.7 Lymph % (Auto) 25.3 [place] % (Auto) 6.4 Eos % (Auto) 4.1 Baso % (Auto) 1.1 Lymph # (Auto) 1.43 [place] # (Auto) 0.4 Eos # (Auto) 0.2 Baso # (Auto) 0.1 Abs Immat Gran (auto) 0.02 Absolute Neuts (auto) 3.6 Absolute Nucleated RBC 0.000 Nucleated RBC % 0.0 Sodium 135 L Potassium 4.2 Chloride 111 H Carbon Dioxide 19 L Anion Gap 5 BUN 20 Creatinine 1.11 Estim Creat Clear Calc 48 Estimated GFR > 60 Glucose 83 Calcium 7.9 L Magnesium 1.9 Total Bilirubin 0.6 AST 20 ALT 8 Alkaline Phosphatase 79 Total Protein 5.2 L Albumin 2.9 L
[2024-11-23 14:00] VITALS: BP 110/54; PULSE 67; RESP 17; TEMP 36.1; O2SAT 99
[2024-11-23] MEDS: NITROFURANTOIN MONOHYD MACROCR 100 MG CAP PO (16:24)
[2024-11-23] MEDS: TAMSULOSIN HCL 0.4 MG CAPSULE PO (21:50)
[2024-11-23] MEDS: PRIMIDONE 12.5 MG TABLET PO (21:50)
[2024-11-23 22:00] VITALS: BP 145/72; PULSE 62; RESP 18; TEMP 36.4; O2SAT 96
[2024-11-24] MEDS: NITROFURANTOIN MONOHYD MACROCR 100 MG CAP PO ×3 (00:16→20:15)
[2024-11-24] MEDS: SODIUM CHLORIDE 0.9% IV 1,000 ML 125 ML IV CONT ×2 (01:05→08:43)
[2024-11-24 06:00] VITALS: BP 138/76; PULSE 61; RESP 18; TEMP 36.6; O2SAT 94
[2024-11-24 08:00] VITALS: PULSE 61; RESP 18; O2SAT 94
[2024-11-24] MEDS: FINASTERIDE 5 MG TABLET PO (08:46)
[2024-11-24] MEDS: GABAPENTIN 100 MG CAPSULE PO ×2 (08:46→20:15)
[2024-11-24] MEDS: CHOLECALCIFEROL (VITAMIN D3) 25 MCG (1,000 UNITS) TABLET 50 MCG PO (08:46)
[2024-11-24] MEDS: FLUoxetine HCL 10 MG CAPSULE PO (08:47)
--- NOTE | 2024-11-24 08:49 | P.PNIM_ITS ---
Progress Note: A&P Assessment and Plan (1) ROBERT (acute kidney injury): Code(s): N17.9 - Acute kidney failure, unspecified Status: Acute Assessment and Plan: Will hydrate and monitor (2) Acute UTI: Code(s): N39.0 - Urinary tract infection, site not specified Status: Acute Assessment and Plan: Continue with antibiotics. Monitor culture. (3) Urinary retention due to benign prostatic hyperplasia: Code(s): N40.1 - Benign prostatic hyperplasia with lower urinary tract symptoms; R33.8 - Other retention of urine Status: Acute Assessment and Plan: Stable on current meds (4) Benign prostatic hyperplasia: Qualifiers: Lower urinary tract symptom presence: symptoms present Lower urinary tract symptom detail: urinary retention Qualified Code(s): N40.1 - Benign prostatic hyperplasia with lower urinary tract symptoms; R33.8 - Other retention of urine Code(s): N40.0 - Benign prostatic hyperplasia without lower urinary tract symptoms Status: Acute Assessment and Plan: Stable on current meds (5) Acute hyperkalemia: Code(s): E87.5 - Hyperkalemia Status: Acute Assessment and Plan: Resolved (6) Chronic subdural hematoma: Code(s): I62.03 - Nontraumatic chronic subdural hemorrhage Status: Acute Assessment and Plan: Stable (7) Seizures: Code(s): R56.9 - Unspecified convulsions Status: Acute Assessment and Plan: Continue current treatment and monitor closely (8) Dementia: Qualifiers: Dementia type: unspecified type Dementia severity: moderate Dementia behavioral or psychological symptom: without behavioral, psychotic, or mood disturbance or anxiety Qualified Code(s): F03.B0 - Unspecified dementia, moderate, without behavioral disturbance, psychotic disturbance, mood disturbance, and anxiety Code(s): F03.90 - Unspecified dementia, unspecified severity, without behavioral disturbance, psychotic disturbance, mood disturbance, and anxiety Status: Acute Assessment and Plan: Continue current treatment and monitor closely Plan 84-year-old pain injury with possible syncopal episode rate is assisted living facility while going to the bathroom. He initially presented on 11/20/2024 with this fall. His vitals were stable CT head and C-spine was performed which showed no acute abnormality and was discharged back to the facility. He presented back again for unclear reason. EMS reports patient was hypotensive on arrival. He is alert and oriented x2 at baseline In the ED evaluation his vitals were stable. Laboratory data showed WBC of 6 hemoglobin of 11.4 platelet 118. Chem panel shows sodium of 136 potassium 5.2 bicarb 24 BUN of 29 creatinine 1.65 blood glucose of 98. LFTs were normal. Urinalysis showed more than 100 WBC 6-10 RBC with positive nitrate and leukocyte esterase. EKG showed sinus rhythm with nonspecific ST-T changes. His baseline creatinine around 1. Repeat head CT shows bilateral chronic subdural hematomas measuring 8 mm on the left and 9 mm on the right. Chest x-ray showed left basilar atelectasis versus pneumonia. He got IV fluid in the ER. Rehab history of urinary retention and hence a bladder scan was performed which showed 900 cc post residual. Ivan catheter was placed in the ER with return of approximately 600 mL of urine. He has been started on IV Zosyn in the ER and admitted for further treatment. Recurrent falls Near syncopal episode ROBERT with creatinine 1.6 received IV fluid. Creatinine continues to improve UTI prior urine culture with E coli ESBL currently on Zosyn. will switch to meropenem. Will check blood culture x2 Urinary retention needing Ivan catheter placement in the ER History of BPH with urine retention on finasteride and tamsulosin. Bilateral chronic subdural hematoma Dementia Chronic back pain CLAUDIO on CPAP Dyslipidemia Diastolic dysfunction Hypertension Neuropathy DVT prophylaxis SCDs Code status do not resuscitate Subjective Date/time seen: 11/24/24 08:49 Interval history: Patient was seen during the morning rounds today. No new overnight complaints. No sob or chest pain No abdominal pain, no nausea or vomiting. Exam 2 Narrative: GENERAL: Chronically ill-appearing, well-nourished, and in no acute distress. HEAD: Normocephalic, atraumatic. EYES: PERRL and EOMI. ENT: Mucous membranes moist. CHEST: Diminished breath sounds bilaterally. No respiratory distress. HEART: Regular rate and rhythm. Normal peripheral pulses. ABDOMEN: Soft, nontender, nondistended. EXTREMITIES: Normal range of motion. No edema. SKIN: Warm, dry, no rash. NEURO: Alert and oriented x2. PSYCH: Normal mood and affect. Objective Data Vital Signs Vital Signs: Vital Signs - 24 hr 11/23/24 09:49 11/23/24 10:00 11/23/24 14:00 Temperature 36.1 C L Pulse Rate 67 Respiratory Rate 17 Blood Pressure 110/54 L Pulse Oximetry 99 Oxygen Delivery Room Air Room Air 11/23/24 22:00 11/24/24 06:00 Temperature 36.4 C 36.6 C Pulse Rate 62 61 Respiratory Rate 18 18 Blood Pressure 145/72 H 138/76 Pulse Oximetry 96 94 Oxygen Delivery Intake/Output Intake/Output: Intake & Output 11/21/24 11/22/24 11/23/24 11/24/24 23:59 23:59 23:59 23:59 Intake Total 2050 3862.9 3070 2154.2 Output Total 975 2650 2900 1000 Balance 1075 1212.9 170 1154.2 Meds/Results Medications: Active Medications Generic Name Dose Route Start Last Admin Trade Name Freq PRN Reason Stop Dose Admin Acetaminophen 650 mg 11/21/24 17:43 Acetaminophen 325 Mg Tablet PO Q4H PRN Mild Pain (1-3) or Fever Hydrocodone Bitart/Acetaminophen 1 tab 11/21/24 17:43 Hydrocodone/Acetaminophen (*Crx) 5-325 Mg Tablet PO Q4H PRN Pain Rated 4-6 Finasteride 5 mg 11/22/24 09:00 11/24/24 08:46 Finasteride 5 Mg Tablet PO 5 mg QAM KAY Administration Fluoxetine HCl 10 mg 11/22/24 09:00 11/24/24 08:47 Fluoxetine Hcl 10 Mg Capsule PO 10 mg QAM KAY Administration Gabapentin 100 mg 11/21/24 22:20 11/24/24 08:46 Gabapentin 100 Mg Capsule PO 100 mg Q12HR KAY Administration Sodium Chloride 1,000 mls @ 0 mls/hr 11/21/24 17:45 11/24/24 08:43 Normal Saline Iv IV CONT 125 mls/hr .Q8H KAY Administration KVO Nitrofurantoin Macrocrystals 100 mg 11/23/24 14:35 11/24/24 08:46 Nitrofurantoin Monohyd Macrocr 100 Mg Cap PO 11/27/24 21:01 100 mg Q12HR KAY Administration Ondansetron HCl 4 mg 11/21/24 17:43 Ondansetron Inj 4 Mg/2 Ml Vial IV PUSH Q4H PRN Nausea Polyethylene Glycol 17 gm 11/21/24 22:13 Polyethylene Glycol 3350 17 Gm Powd.Pack PO DAILY PRN constipation Primidone 12.5 mg 11/21/24 22:20 11/23/24 21:50 Primidone 12.5 Mg Tablet PO 12.5 mg HS KAY Administration Tamsulosin HCl 0.4 mg 11/21/24 22:15 11/23/24 21:50 Tamsulosin Hcl 0.4 Mg Capsule PO 0.4 mg HS KAY Administration Vitamin D 50 mcg 11/22/24 09:00 11/24/24 08:46 Cholecalciferol (Vitamin D3) 25 Mcg (1,000 Units) Tablet PO 50 mcg DAILY KAY Administration Radiology Results: ITS Impressions Chest X-Ray 11/21/24 11:40 IMPRESSION: Left basilar atelectasis versus pneumonia. Head CT 11/21/24 11:47 IMPRESSION: Bilateral chronic subdural hematomas measuring 8 mm on the left and 9 mm on the right. Follow-up advised. Dr. Monroy was notified with the result of the patient at 11:58 AM on December 22, 2024
[2024-11-24 14:00] VITALS: BP 120/61; PULSE 73; RESP 16; TEMP 36.7; O2SAT 97
[2024-11-24] MEDS: PRIMIDONE 12.5 MG TABLET PO (20:15)
[2024-11-24] MEDS: TAMSULOSIN HCL 0.4 MG CAPSULE PO (20:15)
[2024-11-24 22:00] VITALS: BP 124/63; PULSE 72; RESP 18; TEMP 36.7; O2SAT 99
[2024-11-25] MEDS: SODIUM CHLORIDE 0.9% IV 1,000 ML 125 ML IV CONT (05:22)
[2024-11-25 06:00] VITALS: BP 129/71; PULSE 77; RESP 18; TEMP 36.8; O2SAT 100
[2024-11-25 06:49] LABS: Basophils Absolute Auto 0.1 K/mm3 (0.0-0.1); Basophils Percent Auto 0.6 % (0.2-1.2); Eosinophils Absolute Auto 0.6 K/mm3 (0-0.3); Eosinophils Percent Auto 6.2 % (0-4.4); Hematocrit 32.8 % (42.0-52.0); Hemoglobin 10.5 g/dL (14.0-18.0); Immature Granulocyte Absolute 0.03 K/mm3 (0.00-0.031); Immature Granulocyte Percent A 0.3 % (0-0.5); Lymphocytes Percent Auto 16.9 % (18.3-44.2); Mean Corpuscular Hemoglobin 29.1 pg (26-34); Mean Corpuscular Volume 90.9 fl (80-100); Mean Platelet Volume 9.9 fl (7.4-10.4); Monocytes Absolute Auto 0.5 K/mm3 (0.1-0.6); Monocytes Percent Auto 5.2 % (2.6-8.5); Neutrophils Absolute Auto 7.1 K/mm3 (1.3-6.7); Neutrophils Percent Auto 70.8 % (45.5-73.1); Platelet Count Result 121 k/mm3 (150-375); Red Blood Count 3.61 M/mm3 (4.6-6.20); Red Cell Distribution Width 14.9 % (11.5-14.5)
[2024-11-25 07:03] LABS: Alanine Aminotransferase 9 U/L (6-50); Albumin Level 2.8 g/dL (3.5-5.1); Alkaline Phosphatase 62 U/L (38-126); Anion Gap 4 mmol/L (4-12); Aspartate Amino Transferase 16 U/L (17-59); Bilirubin,Total 0.6 mg/dL (0.2-1.3); Blood Urea Nitrogen 14 mg/dL (9-20); Carbon Dioxide 24 mmol/L (22-30); Chloride 108 mmol/L (98-107); Estimated CRCL calculation 59 ml/min; Estimated Glomerular Filt Rate > 60; Glucose 87 mg/dL (65-110); Potassium 3.6 mmol/L (3.4-5.0); Sodium 136 mmol/L (137-145); Total Protein 4.9 g/dL (6.3-8.2)
[2024-11-25 08:00] VITALS: O2SAT 99
[2024-11-25] MEDS: ENOXAPARIN 40 MG/0.4 ML SYRINGE SUB-Q (08:44)
[2024-11-25] MEDS: CHOLECALCIFEROL (VITAMIN D3) 25 MCG (1,000 UNITS) TABLET 50 MCG PO (08:44)
[2024-11-25] MEDS: FINASTERIDE 5 MG TABLET PO (08:44)
[2024-11-25] MEDS: FLUoxetine HCL 10 MG CAPSULE PO (08:44)
[2024-11-25] MEDS: GABAPENTIN 100 MG CAPSULE PO ×2 (08:44→21:06)
[2024-11-25] MEDS: NITROFURANTOIN MONOHYD MACROCR 100 MG CAP PO ×2 (08:44→21:06)
--- NOTE | 2024-11-25 10:59 | PM.IMPN ---
Progress Note: A&P Assessment and Plan (1) ROBERT (acute kidney injury): Code(s): N17.9 - Acute kidney failure, unspecified Status: Acute Assessment and Plan: Will hydrate and monitor (2) Acute UTI: Code(s): N39.0 - Urinary tract infection, site not specified Status: Acute Assessment and Plan: Continue with antibiotics. Monitor culture. (3) Urinary retention due to benign prostatic hyperplasia: Code(s): N40.1 - Benign prostatic hyperplasia with lower urinary tract symptoms; R33.8 - Other retention of urine Status: Acute Assessment and Plan: Stable on current meds (4) Benign prostatic hyperplasia: Qualifiers: Lower urinary tract symptom presence: symptoms present Lower urinary tract symptom detail: urinary retention Qualified Code(s): N40.1 - Benign prostatic hyperplasia with lower urinary tract symptoms; R33.8 - Other retention of urine Code(s): N40.0 - Benign prostatic hyperplasia without lower urinary tract symptoms Status: Acute Assessment and Plan: Stable on current meds (5) Acute hyperkalemia: Code(s): E87.5 - Hyperkalemia Status: Acute Assessment and Plan: Resolved (6) Chronic subdural hematoma: Code(s): I62.03 - Nontraumatic chronic subdural hemorrhage Status: Acute Assessment and Plan: Stable (7) Seizures: Code(s): R56.9 - Unspecified convulsions Status: Acute Assessment and Plan: Continue current treatment and monitor closely (8) Dementia: Qualifiers: Dementia type: unspecified type Dementia severity: moderate Dementia behavioral or psychological symptom: without behavioral, psychotic, or mood disturbance or anxiety Qualified Code(s): F03.B0 - Unspecified dementia, moderate, without behavioral disturbance, psychotic disturbance, mood disturbance, and anxiety Code(s): F03.90 - Unspecified dementia, unspecified severity, without behavioral disturbance, psychotic disturbance, mood disturbance, and anxiety Status: Acute Assessment and Plan: Continue current treatment and monitor closely Plan 84-year-old pain injury with possible syncopal episode rate is assisted living facility while going to the bathroom. He initially presented on 11/20/2024 with this fall. His vitals were stable CT head and C-spine was performed which showed no acute abnormality and was discharged back to the facility. He presented back again for unclear reason. EMS reports patient was hypotensive on arrival. He is alert and oriented x2 at baseline In the ED evaluation his vitals were stable. Laboratory data showed WBC of 6 hemoglobin of 11.4 platelet 118. Chem panel shows sodium of 136 potassium 5.2 bicarb 24 BUN of 29 creatinine 1.65 blood glucose of 98. LFTs were normal. Urinalysis showed more than 100 WBC 6-10 RBC with positive nitrate and leukocyte esterase. EKG showed sinus rhythm with nonspecific ST-T changes. His baseline creatinine around 1. Repeat head CT shows bilateral chronic subdural hematomas measuring 8 mm on the left and 9 mm on the right. Chest x-ray showed left basilar atelectasis versus pneumonia. He got IV fluid in the ER. Rehab history of urinary retention and hence a bladder scan was performed which showed 900 cc post residual. Ivan catheter was placed in the ER with return of approximately 600 mL of urine. He has been started on IV Zosyn in the ER and admitted for further treatment. Recurrent falls PT/OT on board Near syncopal episode likey from dehydration and UTi ECHO from September showed 60-65%, with grade I diastolic dysfunction orthostatic vital signs ROBERT with creatinine 1.6 received IV fluid. Creatinine continues to improve resolved UTI prior urine culture with E coli ESBL S/p Zosyn Urine culture negative Now on Nitrofurantoin Urinary retention needing Ivan catheter placement in the ER History of BPH with urine retention on finasteride and tamsulosin. URology consulted Bilateral chronic subdural hematoma monitor Dementia alert and pleasantly confused at bedside e Chronic back pain continue home pain control CLAUDIO on CPAP Dyslipidemia Diastolic dysfunction titrate home meds ith clinical course Hypertension titrate home meds with clinical course Neuropathy DVT prophylaxis SCDs Code status do not resuscitate Subjective Date/time seen: 11/25/24 10:59 Interval history: Patient comfortable at bedside Review of Systems Review of Systems: Review of systems was attempted but limited due to patient's history of dementia. The patient's only complaint All systems reviewed & are unremarkable except as noted in HPI and below Exam Narrative: GENERAL: Chronically ill-appearing, well-nourished, and in no acute distress. HEAD: Normocephalic, atraumatic. EYES: PERRL and EOMI. ENT: Mucous membranes moist. CHEST: Diminished breath sounds bilaterally. No respiratory distress. HEART: Regular rate and rhythm. Normal peripheral pulses. ABDOMEN: Soft, nontender, nondistended. EXTREMITIES: Normal range of motion. No edema. SKIN: Warm, dry, no rash. NEURO: Alert and oriented x2. PSYCH: Normal mood and affect. Objective Data Vital Signs Vital Signs: Vital Signs - 24 hr 11/24/24 14:00 11/24/24 20:00 11/24/24 22:00 Temperature 98.0 F 98.1 F Pulse Rate 73 72 Respiratory Rate 16 18 Blood Pressure 120/61 124/63 Pulse Oximetry 97 99 Oxygen Delivery Room Air 11/25/24 06:00 11/25/24 08:00 Temperature 98.3 F Pulse Rate 77 Respiratory Rate 18 Blood Pressure 129/71 Pulse Oximetry 100 99 Oxygen Delivery Room Air Intake/Output Intake/Output: Intake & Output 11/22/24 11/23/24 11/24/24 11/25/24 23:59 23:59 23:59 23:59 Intake Total 3862.9 3070 3634.2 120 Output Total 2650 2900 2200 1800 Balance 1212.9 170 1434.2 -1680 Meds/Results Medications: Active Medications Generic Name Dose Route Start Last Admin Trade Name Freq PRN Reason Stop Dose Admin Acetaminophen 650 mg 11/21/24 17:43 Acetaminophen 325 Mg Tablet PO Q4H PRN Mild Pain (1-3) or Fever Hydrocodone Bitart/Acetaminophen 1 tab 11/21/24 17:43 Hydrocodone/Acetaminophen (*Crx) 5-325 Mg Tablet PO Q4H PRN Pain Rated 4-6 Enoxaparin Sodium 40 mg 11/24/24 09:00 11/25/24 08:44 Enoxaparin 40 Mg/0.4 Ml Syringe SUB-Q 40 mg DAILY KAY Administration Finasteride 5 mg 11/22/24 09:00 11/25/24 08:44 Finasteride 5 Mg Tablet PO 5 mg QAM KAY Administration Fluoxetine HCl 10 mg 11/22/24 09:00 11/25/24 08:44 Fluoxetine Hcl 10 Mg Capsule PO 10 mg QAM KAY Administration Gabapentin 100 mg 11/21/24 22:20 11/25/24 08:44 Gabapentin 100 Mg Capsule PO 100 mg Q12HR KAY Administration Nitrofurantoin Macrocrystals 100 mg 11/23/24 14:35 11/25/24 08:44 Nitrofurantoin Monohyd Macrocr 100 Mg Cap PO 11/27/24 21:01 100 mg Q12HR KAY Administration Ondansetron HCl 4 mg 11/21/24 17:43 Ondansetron Inj 4 Mg/2 Ml Vial IV PUSH Q4H PRN Nausea Polyethylene Glycol 17 gm 11/21/24 22:13 Polyethylene Glycol 3350 17 Gm Powd.Pack PO DAILY PRN constipation Primidone 12.5 mg 11/21/24 22:20 11/24/24 20:15 Primidone 12.5 Mg Tablet PO 12.5 mg HS KAY Administration Tamsulosin HCl 0.4 mg 11/21/24 22:15 11/24/24 20:15 Tamsulosin Hcl 0.4 Mg Capsule PO 0.4 mg HS KAY Administration Vitamin D 50 mcg 11/22/24 09:00 11/25/24 08:44 Cholecalciferol (Vitamin D3) 25 Mcg (1,000 Units) Tablet PO 50 mcg DAILY KAY Administration Radiology Results: ITS Impressions Chest X-Ray 11/21/24 11:40 IMPRESSION: Left basilar atelectasis versus pneumonia. Head CT 11/21/24 11:47 IMPRESSION: Bilateral chronic subdural hematomas measuring 8 mm on the left and 9 mm on the right. Follow-up advised. Dr. Monroy was notified with the result of the patient at 11:58 AM on December 22, 2024 Labs Labs: Laboratory Results - last 24 hr 11/25/24 06:25 WBC 10.0 RBC 3.61 L Hgb 10.5 L Hct 32.8 L MCV 90.9 MCH 29.1 MCHC 32.0 RDW 14.9 H Plt Count 121 L MPV 9.9 Immature Gran % (Auto) 0.3 Neut % (Auto) 70.8 Lymph % (Auto) 16.9 L [place] % (Auto) 5.2 Eos % (Auto) 6.2 H Baso % (Auto) 0.6 Lymph # (Auto) 1.70 [place] # (Auto) 0.5 Eos # (Auto) 0.6 H Baso # (Auto) 0.1 Abs Immat Gran (auto) 0.03 Absolute Neuts (auto) 7.1 H Absolute Nucleated RBC 0.000 Nucleated RBC % 0.0 Sodium 136 L Potassium 3.6 Chloride 108 H Carbon Dioxide 24 Anion Gap 4 BUN 14 D Creatinine 0.89 Estim Creat Clear Calc 59 Estimated GFR > 60 Glucose 87 Calcium 8.0 L Total Bilirubin 0.6 AST 16 L ALT 9 Alkaline Phosphatase 62 Total Protein 4.9 L Albumin 2.8 L
--- NOTE | 2024-11-25 12:44 | P.CONUR_ITS ---
Assessment and Plan Assessment and plan (1) Acute UTI: Code(s): N39.0 - Urinary tract infection, site not specified Status: Acute (2) Acute on chronic urinary retention: Code(s): R33.9 - Retention of urine, unspecified Status: Acute Plan 84 yo male with multiple medical problems admitted for falls, with BPH with retention, UTI and dementia -had > 900 cc PVR, catheter placed -Agree with flomax/finasteride -continue to treat UTI -voiding trial as outpt with further workup of BPH/LUTS with cystoscopy, possible TRUS and urodynamic studies for possible hypotonic/neurogenic bladder given high PVR's - suspect recurrent UTI's are due to BPH/incomplete emptying. Urology Consult Note HPI Date Seen: 11/25/24 Requesting Physician: Jeanette Calvert MD Primary Care Provider: GENERAL EDUCATION INSTRUCTOR PHYSICIAN Consult Narrative Narrative: Crow Smith III is a 84 year old male admitted for weakness and falls. Urology consulted for urinary retention. Patient has dementia and is poor historian. Had 900cc of urine on catheter 11/21. 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 Denies straining to urinate, denies incontinence. Does have a hx of frequent UTI. UA suspicious for UTI POA. Denies gross hematuria. No abdominal pain/back pain/bone pain. Sees Dr Graves. Currently on Zosyn for hx of resistant UTI's Review of Systems 2 Review of Systems: ROS unobtainable: Yes unobtainable due to mental status Constitutional: Constitutional: Reports no additional constitutional complaints Cardiovascular: Cardiovascular: Reports no additional cardiovascular complaints Respiratory: Respiratory: Reports no additional respiratory complaints Gastrointestinal: Gastrointestinal: Reports no additional gastrointestinal complaints Genitourinary: Genitourinary: Reports no additional male genitourinary complaints [facility], [facility] Past Medical History Medical History (Updated 11/21/24 @ 23:19 by Candi Gracia DO) Dementia Chronic subdural hematoma 1st noted on CT scan June 2024 Hypovitaminosis D Basal cell carcinoma of skin Chronic back pain Obstructive sleep apnea CPAP of 8 recommended on polysomnogram 2019 Neuropathy Dyslipidemia Left ventricular diastolic dysfunction, NYHA class 1 Grade 1 diastolic dysfunction with EF of 66 by% noted on echocardiogram from 2019 Essential hypertension Surgical History Surgical History History of colonoscopy with polypectomy Multiple events with the most recent May 2017 History of hip surgery (08/14/24) Percutaneous pinning right hip fracture by Dr. 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 He has lived in [facility] since 2020. He reports that he briefly smoked when he was young but according to a prior H&P from 2010 he was smoking half a pack of cigarettes per day at that time. He used to occasionally drink alcohol in moderation but had not done so in many years. He denies history of illicit substance use. Code status: DNR/DNI with IDPA form on chart Healthcare POA: Miguel Boggs [facility]) who lives in [place]. Smoking packs per day: 0.5 Smoking cigarettes per day: 10.0 Years smoked: 2 Smoking pack-years: 1.00 Smoking status: Former smoker Tobacco type: cigarettes Second hand tobacco smoke exposure: No Smoking end date: 06/06/1960 Alcohol intake: former Drinks per week: 1 Alcohol use details: a glass a wine Substance use: never Substance use type: does not use Do You Feel Safe in your Home?: Yes Lack of Transportation: No Lack of Food: Never True Current Housing: I Have Housing Concerned About Future Housing: No Difficulty Paying Gas/Electric Bills: No Difficulty Paying for Meds: No Currently Unemployed: No Education: Master's Degree or Higher Difficulty w/ Childcare or Family Care: No Living arrangements: assisted living Additional living arrangements comments: . Lives at [facility]. Occupation/Education: retired Additional occupation/education comments: [employer] Spiritual care concerns: No Agree to blood products: Yes Meds Home Medications and Allergies Home Medications ?Medication ?Instructions ?Recorded ?Confirmed ?Type cholecalciferol (vitamin D3) 50 50 mcg PO DAILY 05/23/20 11/21/24 History mcg (2,000 unit) capsule zinc 50 mg tablet 50 mg PO DAILY 05/23/20 11/21/24 History finasteride 5 mg tablet (Proscar) 5 mg PO QAM #90 tabs 02/26/22 11/21/24 Rx gabapentin 100 mg capsule 100 mg PO BID #60 caps 05/07/24 11/21/24 Rx ascorbic acid (vitamin C) 500 mg 500 mg PO DAILY 08/14/24 11/21/24 History tablet (Vitamin C) donepezil 5 mg tablet 5 mg PO HS 08/14/24 11/21/24 History fluoxetine 10 mg capsule 10 mg PO QAM 08/14/24 11/21/24 History irbesartan 300 mg tablet 300 mg PO DAILY 08/14/24 11/21/24 History naproxen sodium 220 mg tablet 220 mg PO DAILY 08/14/24 11/21/24 History polyethylene glycol 3350 17 17 g PO .Q daily PRN constipation 08/14/24 11/21/24 History gram/dose oral powder primidone 50 mg tablet 12.5 mg PO HS 08/14/24 11/21/24 History furosemide 20 mg tablet 20 mg PO DAILY 09/28/24 11/21/24 History potassium chloride 20 mEq 20 meq PO DAILY 09/28/24 11/21/24 History tablet,extended release(part/cryst) tamsulosin 0.4 mg capsule See Rx Instructions .Route .COMPLEX 11/21/24 11/21/24 History Allergies Allergy/AdvReac Type Severity Reaction Status Date / Time amlodipine Allergy Intermediate HIVES, Verified 08/14/24 10:49 ITCHING hydrochlorothiazide Allergy Unknown RASH & Verified 08/14/24 10:49 ITCHING valsartan Allergy Unknown Hives Verified 08/14/24 10:49 Vital Signs Vital Signs - 24 hr 11/24/24 14:00 11/24/24 20:00 11/24/24 22:00 Temperature 36.7 C 36.7 C Pulse Rate 73 72 Respiratory Rate 16 18 Blood Pressure 120/61 124/63 Pulse Oximetry 97 99 Oxygen Delivery Room Air 11/25/24 06:00 11/25/24 08:00 Temperature 36.8 C Pulse Rate 77 Respiratory Rate 18 Blood Pressure 129/71 Pulse Oximetry 100 99 Oxygen Delivery Room Air Exam 2 Const: General: comfortable and no acute distress HENMT: Mouth: Yes moist mucous membranes abnormal Eyes: General: appearance normal, both eyes and all related structures EOM: EOMs intact bilaterally Resp: Effort & Inspection: normal respiratory effort Cardio: Rate: regular rate Rhythm: regular rhythm GI: Inspection: non-distended GI Palp: Yes Soft to palpation, No Tenderness to palpation present (GI) and No Guarding due to palpation present (GI) : Male General Exam: Yes normal external exam Urinary Catheter: Urinary Catheter: patent and draining and urine clear Extrem: General: normal to inspection Psych: Speech and movement: Normal speech and movement present Results Labs 11/25/24 06:25 11/25/24 06:25 Labs: Short CBC 11/25/24 Range/Units 06:25 WBC 10.0 (4.5-10.0) K/mm3 Hgb 10.5 L (14.0-18.0) g/dL Hct 32.8 L (42.0-52.0) % Plt Count 121 L (150-375) k/mm3 BMP 11/25/24 06:25 Sodium 136 L Potassium 3.6 Chloride 108 H Carbon Dioxide 24 BUN 14 D Creatinine 0.89 Glucose 87 Calcium 8.0 L Liver Function 11/25/24 Range/Units 06:25 Total Bilirubin 0.6 (0.2-1.3) mg/dL AST 16 L (17-59) U/L ALT 9 (6-50) U/L Alkaline Phosphatase 62 (38-126) U/L Albumin 2.8 L (3.5-5.1) g/dL
[2024-11-25 14:00] VITALS: BP 127/82; PULSE 80; RESP 18; TEMP 36.8; O2SAT 98
[2024-11-25] MEDS: TAMSULOSIN HCL 0.4 MG CAPSULE PO (21:06)
[2024-11-25] MEDS: PRIMIDONE 12.5 MG TABLET PO (21:06)
[2024-11-25 21:19] VITALS: BP 134/73; PULSE 71; RESP 18; TEMP 37.1; O2SAT 97
[2024-11-26 06:00] VITALS: BP 146/84; PULSE 67; RESP 20; TEMP 36.8; O2SAT 95
[2024-11-26 06:29] LABS: Basophils Absolute Auto 0.1 K/mm3 (0.0-0.1); Basophils Percent Auto 0.8 % (0.2-1.2); Eosinophils Absolute Auto 0.6 K/mm3 (0-0.3); Eosinophils Percent Auto 8.1 % (0-4.4); Hematocrit 32.8 % (42.0-52.0); Hemoglobin 10.6 g/dL (14.0-18.0); Immature Granulocyte Absolute 0.03 K/mm3 (0.00-0.031); Immature Granulocyte Percent A 0.4 % (0-0.5); Immature Platelet Fraction Pct 2.4 % (0.9-11.2); Lymphocytes Absolute Auto 1.95 K/mm3 (0.9-3.2); Lymphocytes Percent Auto 25.4 % (18.3-44.2); Mean Corpuscular HGB Conc 32.3 g/dl (32-36); Mean Corpuscular Hemoglobin 28.8 pg (26-34); Mean Corpuscular Volume 89.1 fl (80-100); Mean Platelet Volume 9.9 fl (7.4-10.4); Monocytes Absolute Auto 0.5 K/mm3 (0.1-0.6); Monocytes Percent Auto 5.9 % (2.6-8.5); Neutrophils Absolute Auto 4.6 K/mm3 (1.3-6.7); Neutrophils Percent Auto 59.4 % (45.5-73.1); Platelet Count Result 131 k/mm3 (150-375); Red Blood Count 3.68 M/mm3 (4.6-6.20); White Blood Count 7.7 K/mm3 (4.5-10.0)
[2024-11-26 06:42] LABS: Alanine Aminotransferase 12 U/L (6-50); Albumin Level 2.8 g/dL (3.5-5.1); Alkaline Phosphatase 61 U/L (38-126); Anion Gap 2 mmol/L (4-12); Aspartate Amino Transferase 19 U/L (17-59); Bilirubin,Total 0.4 mg/dL (0.2-1.3); Blood Urea Nitrogen 19 mg/dL (9-20); Calcium 8.1 mg/dL (8.4-10.2); Carbon Dioxide 26 mmol/L (22-30); Chloride 107 mmol/L (98-107); Estimated CRCL calculation 63 ml/min; Estimated Glomerular Filt Rate > 60; Glucose 88 mg/dL (65-110); Magnesium 1.8 mg/dL (1.6-2.3); Potassium 3.5 mmol/L (3.4-5.0); Sodium 135 mmol/L (137-145); Total Protein 4.9 g/dL (6.3-8.2)
--- NOTE | 2024-11-26 08:49 | P.PNUR_ITS ---
Progress Note: A&P Assessment and Plan (1) Acute UTI: Code(s): N39.0 - Urinary tract infection, site not specified Status: Acute (2) Acute on chronic urinary retention: Code(s): R33.9 - Retention of urine, unspecified Status: Acute Plan 84 yo male with multiple medical problems admitted for falls, with BPH with acute retention, UTI and dementia * 900 cc urinary retention on admission, Ivan catheter placed * Continue tamsulosin and finasteride * Urine cultures negative. No need for ongoing antibiotics from perspective * Continue Ivan at this time, plan for discharge with Ivan catheter. Will arrange outpatient follow-up for further workup of BPH and/or neurogenic bladder. Arrange void trial as an outpatient Subjective Subjective Date/Time Seen: 11/26/24 08:49 Interval history: Patient asleep during encounter. Not able to provide any history. Reportedly baseline is A&Ox2. Review of Systems Review of Systems: ROS unobtainable: Yes unobtainable due to mental status Exam Narrative: General: asleep, no acute distress HEENT: Normocephalic, atraumatic Respiratory: Normal respiratory effort, no accessory muscle use : Ivan catheter draining clear yellow urine Skin: Normal coloration Objective Data Vital Signs Vital Signs: Vital Signs - 24 hr 11/25/24 14:00 11/25/24 20:00 11/25/24 21:19 Temperature 98.3 F 98.8 F Pulse Rate 80 71 Respiratory Rate 18 18 Blood Pressure 127/82 134/73 Pulse Oximetry 98 97 Oxygen Delivery Room Air Fraction of Inspired Oxygen 11/26/24 06:00 Temperature 98.2 F Pulse Rate 67 Respiratory Rate 20 Blood Pressure 146/84 H Pulse Oximetry 95 Oxygen Delivery Fraction of Inspired Oxygen Intake/Output Intake/Output: Intake & Output 11/23/24 11/24/24 11/25/24 11/26/24 23:59 23:59 23:59 23:59 Intake Total 3070 3634.2 660 0 Output Total 2900 2200 3400 950 Balance 170 1434.2 -6080 -950 Meds/Results Medications: Active Medications Generic Name Dose Route Start Last Admin Trade Name Freq PRN Reason Stop Dose Admin Acetaminophen 650 mg 11/21/24 17:43 Acetaminophen 325 Mg Tablet PO Q4H PRN Mild Pain (1-3) or Fever Hydrocodone Bitart/Acetaminophen 1 tab 11/21/24 17:43 Hydrocodone/Acetaminophen (*Crx) 5-325 Mg Tablet PO Q4H PRN Pain Rated 4-6 Enoxaparin Sodium 40 mg 11/24/24 09:00 11/26/24 07:38 Enoxaparin 40 Mg/0.4 Ml Syringe SUB-Q Not Given DAILY KAY Finasteride 5 mg 11/22/24 09:00 11/25/24 08:44 Finasteride 5 Mg Tablet PO 5 mg QAM KAY Administration Fluoxetine HCl 10 mg 11/22/24 09:00 11/25/24 08:44 Fluoxetine Hcl 10 Mg Capsule PO 10 mg QAM KAY Administration Gabapentin 100 mg 11/21/24 22:20 11/25/24 21:06 Gabapentin 100 Mg Capsule PO 100 mg Q12HR KAY Administration Nitrofurantoin Macrocrystals 100 mg 11/23/24 14:35 11/25/24 21:06 Nitrofurantoin Monohyd Macrocr 100 Mg Cap PO 11/27/24 21:01 100 mg Q12HR KAY Administration Ondansetron HCl 4 mg 11/21/24 17:43 Ondansetron Inj 4 Mg/2 Ml Vial IV PUSH Q4H PRN Nausea Polyethylene Glycol 17 gm 11/21/24 22:13 Polyethylene Glycol 3350 17 Gm Powd.Pack PO DAILY PRN constipation Primidone 12.5 mg 11/21/24 22:20 11/25/24 21:06 Primidone 12.5 Mg Tablet PO 12.5 mg HS KAY Administration Tamsulosin HCl 0.4 mg 11/21/24 22:15 11/25/24 21:06 Tamsulosin Hcl 0.4 Mg Capsule PO 0.4 mg HS KAY Administration Vitamin D 50 mcg 11/22/24 09:00 11/25/24 08:44 Cholecalciferol (Vitamin D3) 25 Mcg (1,000 Units) Tablet PO 50 mcg DAILY KAY Administration Radiology Results: ITS Impressions Chest X-Ray 11/21/24 11:40 IMPRESSION: Left basilar atelectasis versus pneumonia. Head CT 11/21/24 11:47 IMPRESSION: Bilateral chronic subdural hematomas measuring 8 mm on the left and 9 mm on the right. Follow-up advised. Dr. Monroy was notified with the result of the patient at 11:58 AM on December 22, 2024 Labs Labs: Laboratory Results - last 24 hr 11/26/24 06:05 WBC 7.7 RBC 3.68 L Hgb 10.6 L Hct 32.8 L MCV 89.1 MCH 28.8 MCHC 32.3 RDW 15.0 H Plt Count 131 L MPV 9.9 Immature Gran % (Auto) 0.4 Neut % (Auto) 59.4 Lymph % (Auto) 25.4 [place] % (Auto) 5.9 Eos % (Auto) 8.1 H Baso % (Auto) 0.8 Lymph # (Auto) 1.95 [place] # (Auto) 0.5 Eos # (Auto) 0.6 H Baso # (Auto) 0.1 Abs Immat Gran (auto) 0.03 Absolute Neuts (auto) 4.6 Absolute Nucleated RBC 0.000 Nucleated RBC % 0.0 % Immature Plt Fraction 2.4 Sodium 135 L Potassium 3.5 Chloride 107 Carbon Dioxide 26 Anion Gap 2 L BUN 19 Creatinine 0.84 Estim Creat Clear Calc 63 Estimated GFR > 60 Glucose 88 Calcium 8.1 L Magnesium 1.8 Total Bilirubin 0.4 AST 19 ALT 12 Alkaline Phosphatase 61 Total Protein 4.9 L Albumin 2.8 L
[2024-11-26] MEDS: FLUoxetine HCL 10 MG CAPSULE PO (09:08)
[2024-11-26] MEDS: FINASTERIDE 5 MG TABLET PO (09:09)
[2024-11-26] MEDS: CHOLECALCIFEROL (VITAMIN D3) 25 MCG (1,000 UNITS) TABLET 50 MCG PO (09:09)
[2024-11-26] MEDS: GABAPENTIN 100 MG CAPSULE PO ×2 (09:09→20:47)
[2024-11-26] MEDS: NITROFURANTOIN MONOHYD MACROCR 100 MG CAP PO ×2 (09:09→20:48)
--- NOTE | 2024-11-26 12:24 | P.DS_ITS ---
DS: Discharge Diagnosis Discharge Diagnosis (1) Acute UTI: Code(s): N39.0 - Urinary tract infection, site not specified Status: Acute (2) Acute on chronic urinary retention: Code(s): R33.9 - Retention of urine, unspecified Status: Acute Plan 84 yo male with multiple medical problems admitted for falls, with BPH with acute retention, UTI and dementia * 900 cc urinary retention on admission, Ivan catheter placed * Continue tamsulosin and finasteride * Urine cultures negative. No need for ongoing antibiotics from perspective * Continue Ivan at this time, plan for discharge with Ivan catheter. Will arrange outpatient follow-up for further workup of BPH and/or neurogenic bladder. Arrange void trial as an outpatient DS: Summary Time Spent with Patient Time attestation: Total time spent providing and/or coordinating discharge services: Exam Narrative: General: asleep, no acute distress HEENT: Normocephalic, atraumatic Respiratory: Normal respiratory effort, no accessory muscle use : Ivan catheter draining clear yellow urine Skin: Normal coloration DS: Data Data Completed and Pending Labs on day of discharge: Labs from last 24 hours 11/26/24 06:05 WBC 7.7 RBC 3.68 L Hgb 10.6 L Hct 32.8 L MCV 89.1 MCH 28.8 MCHC 32.3 RDW 15.0 H Plt Count 131 L MPV 9.9 Immature Gran % (Auto) 0.4 Neut % (Auto) 59.4 Lymph % (Auto) 25.4 [place] % (Auto) 5.9 Eos % (Auto) 8.1 H Baso % (Auto) 0.8 Lymph # (Auto) 1.95 [place] # (Auto) 0.5 Eos # (Auto) 0.6 H Baso # (Auto) 0.1 Abs Immat Gran (auto) 0.03 Absolute Neuts (auto) 4.6 Absolute Nucleated RBC 0.000 Nucleated RBC % 0.0 % Immature Plt Fraction 2.4 Sodium 135 L Potassium 3.5 Chloride 107 Carbon Dioxide 26 Anion Gap 2 L BUN 19 Creatinine 0.84 Estim Creat Clear Calc 63 Estimated GFR > 60 Glucose 88 Calcium 8.1 L Magnesium 1.8 Total Bilirubin 0.4 AST 19 ALT 12 Alkaline Phosphatase 61 Total Protein 4.9 L Albumin 2.8 L Preliminary micro results at discharge 11/22/24 15:37 Blood Culture - Preliminary Blood 11/22/24 15:46 Blood Culture - Preliminary Blood Discharge Plan Discharge Attending physician on discharge: Nevin Wallace Consulting providers: Samuel Sanchez; Xavier Fitzpatrick Discharging Clinician: Nevin Wallace Anticipated Discharge Date/Time: 11/26/24 12:22 Patient Disposition: Home Activity: as tolerated Diet: regular Patient Instructions: Antibiotic Form Patient Language: Kuwaiti Stand Alone Forms: General Discharge Information Follow-up/Referrals: PHYSICIAN,ECOMMERCE MARKETING MANAGER [Primary Care Provider] - Xavier Fitzpatrick MD [Physician] - (in 2-3 weeks time ) Samuel Sanchez MD [Physician] - (in 2-3 weeks time ) Discharge Medications: Continued zinc 50 mg tablet 50 mg PO DAILY cholecalciferol (vitamin D3) 50 mcg (2,000 unit) capsule 50 mcg PO DAILY furosemide 20 mg tablet 20 mg PO DAILY potassium chloride 20 mEq tablet,ER particles/crystals 20 meq PO DAILY tamsulosin 0.4 mg capsule See Rx Instructions .ROUTE .COMPLEX Patient Comments: Pt. states he takes at night Rx Instructions: TAKE ONE CAPSULE BY MOUTH ONCE DAILY (HS) gabapentin 100 mg capsule 100 mg PO BID Qty: 60 0RF fluoxetine 10 mg capsule 10 mg PO QAM irbesartan 300 mg tablet 300 mg PO DAILY ascorbic acid (vitamin C) [Vitamin C] 500 mg tablet 500 mg PO DAILY primidone 50 mg tablet 12.5 mg PO HS donepezil 5 mg tablet 5 mg PO HS polyethylene glycol 3350 17 gram/dose powder 17 g PO .Q daily PRN (Reason: constipation) finasteride [Proscar] 5 mg tablet 5 mg PO QAM Qty: 90 1RF No Action naproxen sodium 220 mg tablet 220 mg PO DAILY Date of admission: 11/23/24 12:37 Primary Care Provider: PHYSICIAN,ECOMMERCE MARKETING MANAGER Admitting Provider: Jeanette Calvert Attending physician on admission: Jeanette Calvert Condition: Stable
[2024-11-26 13:39] VITALS: BP 140/90; PULSE 73; RESP 16; TEMP 36.3; O2SAT 96
[2024-11-26] MEDS: TAMSULOSIN HCL 0.4 MG CAPSULE PO (20:47)
[2024-11-26] MEDS: HYDROcodone/acetaminophen (*CRX) 5-325 MG TABLET 1 TAB PO (20:47)
[2024-11-26] MEDS: PRIMIDONE 12.5 MG TABLET PO (20:48)
[2024-11-26 21:30] VITALS: PULSE 65; RESP 20; O2SAT 95
[2024-11-26 21:56] VITALS: BP 116/73; PULSE 62; RESP 16; TEMP 36.3; O2SAT 96
--- NOTE | 2024-11-26 22:31 | P.PNIM_ITS ---
Progress Note: A&P Assessment and Plan (1) Acute UTI: Code(s): N39.0 - Urinary tract infection, site not specified Status: Acute (2) Acute on chronic urinary retention: Code(s): R33.9 - Retention of urine, unspecified Status: Acute Plan 84 yo male with multiple medical problems admitted for falls, with BPH with acute retention, UTI and dementia labs are better potassium and creat uc is negative ok to dc with assisted living with montoya in situ Subjective Date/time seen: 11/26/24 22:31 Interval history: Pt is admitted for kev, bph and hyperkaelemia Uti is ruled out ok to dc back to Assisted living facility labs are better Review of Systems Review of Systems: no specific compliants Exam Narrative: General: resting pleasant older man HEENT: Normocephalic, atraumatic Respiratory: Normal respiratory effort, no accessory muscle use : Montoya catheter draining clear yellow urine Skin: Normal coloration Objective Data Vital Signs Vital Signs: Vital Signs - 24 hr 11/26/24 06:00 11/26/24 09:09 11/26/24 13:39 Temperature 36.8 C 36.3 C L Pulse Rate 67 73 Respiratory Rate 20 16 Blood Pressure 146/84 H 140/90 Pulse Oximetry 95 96 Oxygen Delivery Room Air Fraction of Inspired Oxygen 11/26/24 21:30 11/26/24 21:56 Temperature 36.3 C L Pulse Rate 65 62 Respiratory Rate 20 16 Blood Pressure 116/73 Pulse Oximetry 95 96 Oxygen Delivery Room Air Fraction of Inspired Oxygen 21 Intake/Output Intake/Output: Intake & Output 11/23/24 11/24/24 11/25/24 11/26/24 23:59 23:59 23:59 23:59 Intake Total 3070 3634.2 660 720 Output Total 2900 2200 3400 2250 Balance 170 0414.2 -5813 -2232 Meds/Results Medications: Active Medications Generic Name Dose Route Start Last Admin Trade Name Freq PRN Reason Stop Dose Admin Acetaminophen 650 mg 11/21/24 17:43 Acetaminophen 325 Mg Tablet PO Q4H PRN Mild Pain (1-3) or Fever Hydrocodone Bitart/Acetaminophen 1 tab 11/21/24 17:43 11/26/24 20:47 Hydrocodone/Acetaminophen (*Crx) 5-325 Mg Tablet PO 1 tab Q4H PRN Administration Pain Rated 4-6 Enoxaparin Sodium 40 mg 11/24/24 09:00 11/26/24 07:38 Enoxaparin 40 Mg/0.4 Ml Syringe SUB-Q Not Given DAILY KAY Finasteride 5 mg 11/22/24 09:00 11/26/24 09:09 Finasteride 5 Mg Tablet PO 5 mg QAM KAY Administration Fluoxetine HCl 10 mg 11/22/24 09:00 11/26/24 09:08 Fluoxetine Hcl 10 Mg Capsule PO 10 mg QAM KAY Administration Gabapentin 100 mg 11/21/24 22:20 11/26/24 20:47 Gabapentin 100 Mg Capsule PO 100 mg Q12HR KAY Administration Nitrofurantoin Macrocrystals 100 mg 11/23/24 14:35 11/26/24 20:48 Nitrofurantoin Monohyd Macrocr 100 Mg Cap PO 11/27/24 21:01 100 mg Q12HR KAY Administration Ondansetron HCl 4 mg 11/21/24 17:43 Ondansetron Inj 4 Mg/2 Ml Vial IV PUSH Q4H PRN Nausea Polyethylene Glycol 17 gm 11/21/24 22:13 Polyethylene Glycol 3350 17 Gm Powd.Pack PO DAILY PRN constipation Primidone 12.5 mg 11/21/24 22:20 11/26/24 20:48 Primidone 12.5 Mg Tablet PO 12.5 mg HS KAY Administration Tamsulosin HCl 0.4 mg 11/21/24 22:15 11/26/24 20:47 Tamsulosin Hcl 0.4 Mg Capsule PO 0.4 mg HS KAY Administration Vitamin D 50 mcg 11/22/24 09:00 11/26/24 09:09 Cholecalciferol (Vitamin D3) 25 Mcg (1,000 Units) Tablet PO 50 mcg DAILY KAY Administration Radiology Results: ITS Impressions Chest X-Ray 11/21/24 11:40 IMPRESSION: Left basilar atelectasis versus pneumonia. Head CT 11/21/24 11:47 IMPRESSION: Bilateral chronic subdural hematomas measuring 8 mm on the left and 9 mm on the right. Follow-up advised. Dr. Monroy was notified with the result of the patient at 11:58 AM on December 22, 2024 Labs Labs: Laboratory Results - last 24 hr 11/26/24 06:05 WBC 7.7 RBC 3.68 L Hgb 10.6 L Hct 32.8 L MCV 89.1 MCH 28.8 MCHC 32.3 RDW 15.0 H Plt Count 131 L MPV 9.9 Immature Gran % (Auto) 0.4 Neut % (Auto) 59.4 Lymph % (Auto) 25.4 [place] % (Auto) 5.9 Eos % (Auto) 8.1 H Baso % (Auto) 0.8 Lymph # (Auto) 1.95 [place] # (Auto) 0.5 Eos # (Auto) 0.6 H Baso # (Auto) 0.1 Abs Immat Gran (auto) 0.03 Absolute Neuts (auto) 4.6 Absolute Nucleated RBC 0.000 Nucleated RBC % 0.0 % Immature Plt Fraction 2.4 Sodium 135 L Potassium 3.5 Chloride 107 Carbon Dioxide 26 Anion Gap 2 L BUN 19 Creatinine 0.84 Estim Creat Clear Calc 63 Estimated GFR > 60 Glucose 88 Calcium 8.1 L Magnesium 1.8 Total Bilirubin 0.4 AST 19 ALT 12 Alkaline Phosphatase 61 Total Protein 4.9 L Albumin 2.8 L
[2024-11-27 06:00] VITALS: BP 158/83; PULSE 85; RESP 16; TEMP 36.6; O2SAT 97
[2024-11-27] MEDS: ENOXAPARIN 40 MG/0.4 ML SYRINGE SUB-Q (08:22)
[2024-11-27] MEDS: FINASTERIDE 5 MG TABLET PO (08:24)
[2024-11-27] MEDS: CHOLECALCIFEROL (VITAMIN D3) 25 MCG (1,000 UNITS) TABLET 50 MCG PO (08:24)
[2024-11-27] MEDS: GABAPENTIN 100 MG CAPSULE PO (08:24)
[2024-11-27] MEDS: NITROFURANTOIN MONOHYD MACROCR 100 MG CAP PO (08:24)
[2024-11-27] MEDS: FLUoxetine HCL 10 MG CAPSULE PO (08:26)
--- NOTE | 2024-11-27 13:01 | P.DS_ITS ---
DS: Admitting Diagnosis Discharge Date 11/27/24 Admitting Diagnosis Near-syncope on the toilet DS: Discharge Diagnosis Discharge Diagnosis (1) ROBERT (acute kidney injury): Code(s): N17.9 - Acute kidney failure, unspecified Status: Acute DS: Summary Hospital Course Hospital Course: 84-year-old pain injury with possible syncopal episode rate is assisted living facility while going to the bathroom. He initially presented on 11/20/2024 with this fall. His vitals were stable CT head and C-spine was performed which showed no acute abnormality and was discharged back to the facility. He presented back again for unclear reason. EMS reports patient was hypotensive on arrival. He is alert and oriented x2 at baseline In the ED evaluation his vitals were stable. Laboratory data showed WBC of 6 hemoglobin of 11.4 platelet 118. Chem panel shows sodium of 136 potassium 5.2 bicarb 24 BUN of 29 creatinine 1.65 blood glucose of 98. LFTs were normal. Urinalysis showed more than 100 WBC 6-10 RBC with positive nitrate and leukocyte esterase. EKG showed sinus rhythm with nonspecific ST-T changes. His baseline creatinine around 1. Repeat head CT shows bilateral chronic subdural hematomas measuring 8 mm on the left and 9 mm on the right. Chest x-ray showed left basilar atelectasis versus pneumonia. He got IV fluid in the ER. Rehab history of urinary retention and hence a bladder scan was performed which showed 900 cc post residual. Montoya catheter was placed in the ER with return of approximately 600 mL of urine. He has been started on IV Zosyn in the ER and admitted for further treatment. Near syncope with fall likely from dehydration was hypotension on admission. given IVF, ECHO from September showed EF 60-65% with grade I diastolic. ROBERT which resolved with IVF. Initially managed for UTi however urine culture was negative adn abx dis continued. Urology was consulted for urinary retention adn patient will discharge on montoya and follow up [facility] urology as instruced. contineu Flomax and finasteride. Continue other home meds F/u with PCp in 3-5 days, f/u with urology as instructed Discharged to SNF Time Spent with Patient Time attestation: Total time spent providing and/or coordinating discharge services: DS: Data Data Completed and Pending Labs on day of discharge: Preliminary micro results at discharge 11/22/24 15:37 Blood Culture - Preliminary Blood 11/22/24 15:46 Blood Culture - Preliminary Blood Discharge Plan Discharge Attending physician on discharge: Nevin Wallace Consulting providers: Samuel Sanchez; Xavier Fitzpatrick Discharging Clinician: Nevin Wallace Anticipated Discharge Date/Time: 11/26/24 12:22 Patient Disposition: SNF Activity: as tolerated Diet: regular Patient Instructions: Antibiotic Form Patient Language: Dominican Stand Alone Forms: General Discharge Information Follow-up/Referrals: PHYSICIAN,CREDIT REVIEW ANALYST [Primary Care Provider] - Xavier Fitzpatrick MD [Physician] - (in 2-3 weeks time ) Samuel Sanchez MD [Physician] - (in 2-3 weeks time ) Discharge Medications: Continued zinc 50 mg tablet 50 mg PO DAILY cholecalciferol (vitamin D3) 50 mcg (2,000 unit) capsule 50 mcg PO DAILY furosemide 20 mg tablet 20 mg PO DAILY potassium chloride 20 mEq tablet,ER particles/crystals 20 meq PO DAILY tamsulosin 0.4 mg capsule See Rx Instructions .ROUTE .COMPLEX Patient Comments: Pt. states he takes at night Rx Instructions: TAKE ONE CAPSULE BY MOUTH ONCE DAILY (HS) gabapentin 100 mg capsule 100 mg PO BID Qty: 60 0RF fluoxetine 10 mg capsule 10 mg PO QAM irbesartan 300 mg tablet 300 mg PO DAILY naproxen sodium 220 mg tablet 220 mg PO DAILY ascorbic acid (vitamin C) [Vitamin C] 500 mg tablet 500 mg PO DAILY primidone 50 mg tablet 12.5 mg PO HS donepezil 5 mg tablet 5 mg PO HS polyethylene glycol 3350 17 gram/dose powder 17 g PO .Q daily PRN (Reason: constipation) finasteride [Proscar] 5 mg tablet 5 mg PO QAM Qty: 90 1RF Date of admission: 11/23/24 12:37 Primary Care Provider: PHYSICIAN,CREDIT REVIEW ANALYST Admitting Provider: Jeanette Calvert Attending physician on admission: Jeanette Calvert Condition: Stable
[2024-11-27 14:00] VITALS: BP 95/69; PULSE 77; RESP 16; TEMP 36.2; O2SAT 98
--- NOTE | 2024-11-27 14:12 | PCOTNOTE ---
Attempted to see Patient for OT treatment session this afternoon. Patient declined to participate, states he is being discharged today.
== END 2024-11-27 14:35 | DRG 684 ==
LOC: ANHED 17:48 → ANH3MEDSUR 18:33
PROVIDERS: Internal Medicine; Admitting Provider Internal Medicine; Emergency Provider Emergency Medicine; Visit Provider Internal Medicine
DX: N17.9 Acute kidney failure, unspecified (principal); E86.0 Dehydration; I95.9 Hypotension, unspecified; R55 Syncope and collapse; N40.1 Benign prostatic hyperplasia with lower urinary tract symptoms; R33.8 Other retention of urine; I10 Essential (primary) hypertension; F03.90 Unspecified dementia, unspecified severity, without behavioral disturbance, psychotic disturbance, mood disturbance, and anxiety; G47.33 Obstructive sleep apnea (adult) (pediatric); G62.9 Polyneuropathy, unspecified; E87.5 Hyperkalemia; R56.9 Unspecified convulsions; E78.5 Hyperlipidemia, unspecified; Z85.828 Personal history of other malignant neoplasm of skin; Z87.891 Personal history of nicotine dependence; Z66 Do not resuscitate; W19.XXXA Unspecified fall, initial encounter
CPT/HCPCS: 36415; 70450; 71045; 80048; 80053; 80069; 81001; 83735; 85025; 85027; 85055; 85610; 85730; 87040; 87086; 93005; 96361; 96365; 96375; 97110; 97116; 97166; 97530; 99285; A9270; G0378; J1650; J2185; J2543; J7030